=== PATIENT | female | born 1955 | race Caucasian/White ===

== ENCOUNTER → 2017-12-07 15:02 | Outpatient (REF) | payer BC, SELFPAY | LOC: LBN 15:02 | PROVIDERS: PCP Nurse Practitioner Family; Visit Provider Nurse Practitioner Family | DX: R35.0 Frequency of micturition (principal); N89.8 Other specified noninflammatory disorders of vagina | CPT/HCPCS: 87077; 87086; 87186; 87480; 87510; 87660 ==

== ENCOUNTER 2018-01-25 02:47 | Outpatient (CLI) | payer BC, SELFPAY ==
[2018-01-25 12:54] LABS: FREE T4 0.85 ng/dL (0.76-1.46)
[2018-01-26 13:55] LABS: Thyroglobulin Antibody 18 U/mL (<61); Thyroperoxidase Antibody 33 U/mL (<61)
== END 2018-01-25 03:07 ==
PROVIDERS: PCP Nurse Practitioner Family; Visit Provider Nurse Practitioner Family
DX: R79.89 Other specified abnormal findings of blood chemistry (principal); I10 Essential (primary) hypertension
CPT/HCPCS: 36415; 86376; 84439; 84443

== ENCOUNTER 2018-09-04 07:00 | Day surgery (SDC) | payer BC, SELFPAY ==
[2018-09-04] MEDS: Lidocaine 2% Pres-Free 5 ML VIAL (09:50)
--- NOTE | 2018-09-04 10:07 | W.PM.DSUDISC ---
Discharge Plan Disposition Patient Disposition: HOME Condition: Good Discharge Details Reason For Visit: L trigger thumb release Attending Provider: Kenny Banks Primary Care Provider: Samantha Escalante Home Meds and New Rx's Prescriptions: New ibuprofen 600 mg tablet 600 mg PO TID Qty: 30 RF: 0 Continued multivitamin [Daily Multi-Vitamin] 1 EACH tablet 1 ea PO DAILY RF: 0 omega-3 fatty acids-fish oil [Fish Oil] 1 EACH capsule 2 ea PO DAILY RF: 0 esomeprazole magnesium [Nexium] 40 mg capsule,delayed release(DR/EC) 40 mg PO DAILY@0730 Qty: 30 RF: 6 Discharge Instructions Additional Instructions: Bend and straighten L thumb 10 times/hour when awake to decrease swelling and pain. Keep dressings dry and in place for 48 hours. After 48 hours, remove dressings. May then shower or bathe and get incision wet. Leave incision uncovered when it is dry and sealed. Take ibuprofen as prescribed for pain. May take tylenol, in addition, for pain if needed. Follow up with in 10-14 days. Referrals: Kenny Banks MD [ [facility] STAFF PHYSICIAN] - (f/u in 10-14 days.) Activity:: Activity as Tolerated Remove Dressings/Wound Care:: 48 hours Shower/Bathe:: 48 hours Diet:: As Tolerated Discharge Orders Discharge Orders: Discharge Order (Routine); Ordered 09/04/18 Ordered By: Kenny Banks DS: Diagnosis Discharge Diagnosis (1) Trigger thumb of left hand: Status: Acute
--- NOTE | 2018-09-04 13:51 | ROE_ITS ---
DATE OF PROCEDURE: September 04, 2018 PREOPERATIVE DIAGNOSIS: Trigger left thumb. POSTOPERATIVE DIAGNOSIS: Same. PROCEDURE: Tendon sheath incision for trigger left thumb. ANESTHESIA: Local infiltration - 2% Xylocaine solution and 0.5% Marcaine with an epinephrine solutio n. SURGEON: Kenny Banks M.D. INDICATIONS: This is a 62-year-old white female with painful locking of her left thumb for several m onths duration. It's gotten so painful that she won't flex her thumb at all. 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 Tendon sheath incision to release her t loft rigger thumb was recommended to alleviate her pain and restore good function to her left thumb. The risks and complications of the procedure were explained to the patient in detail preoperatively. PROCEDURE: The patient was taken to the Operating Room on 09/04/18. She was placed supine on the ope rating table. The left hand is prepped and draped free in the usual sterile fashion. I infiltrate o franca the proximal flexion crease of the left thumb with 2% Xylocaine solution. After waiting a couple of minutes, I then make an incision in line with the proximal flexion crease of the thumb, centered over the flexor sheath. The incision was about 3 cm. The incision was carried down to the subcu. B edyta-tipped Littler scissors were then used to mobilize the digital nerve away from the flexor sheath of the thumb. Retractors were inserted and under direct vision I incised the proximal ivory of the left thumb. Once I thought I had released it completely, I asked the patient to actively flex and e xtend her left thumb. She was now able to flex and extend her left thumb fully without any locking o r catching. The wound was irrigated with saline solution. The wound margins were infiltrated with 0.5% Marcaine with an epinephrine solution. The skin edges were approximated with three interrupted #4-0 Nylon caban tures. The wound was dressed with Xeroform gauze, sterile gauze 4x4's, and wrapped with a 2-inch Cli ng bandage for a light pressure dressing. The patient tolerated the procedure well and was discharge d to the Day Surgery Unit in good condition. The patient was discharged home from the Day Surgery Unit when fully recovered from her procedure. S he was given instructions to flex and extend her left thumb ten times an hour while awake to prevent swelling and pain. She is to keep her dressings dry and intact for 48 hours. After 48 hours she can remove her dressings, shower or bathe and get her incision wet. She can leave her incision uncovere d when it is dry and sealed. She will take Tylenol or ibuprofen for pain. She will follow-up in my office in 10-14 days. She may use her left thumb as much as discomfort allows.
== END 2018-09-04 10:30 | disposition home or self-care (01) ==
PROVIDERS: PCP Nurse Practitioner Family; Visit Provider Orthopaedic Surgery
PROC: (CPT 26055; principal; 2018-09-04 08:30)
DX: M65.312 Trigger thumb, left thumb (principal)
CPT/HCPCS: 26055

== ENCOUNTER 2019-03-06 07:08 | Outpatient (CLI) | payer BC, SELFPAY ==
[2019-03-06 07:58] LABS: Hemoglobin A1C 6.1 % (4.5-6.2)
[2019-03-06 08:24] LABS: HCT 30.8 % (36.0-46.0); HGB 8.9 g/dL (12.0-15.5); Mean Corp. HGB Concentration 28.9 g/dL (32.0-36.0); Mean Corpuscular Hemoglobin 20.2 pg (27.0-33.0); Mean Platelet Volume 9.5 fL (8.0-11.0); Platelet Count 322 x1000/uL (130-400); RBC Distribution Width 17.3 % (11.7-14.6); White Blood Cell Count 4.68 k/cumm (4.4-10.8)
[2019-03-06 09:02] LABS: Anion Gap 11.2 mmol/L (3-11); BUN 17 mg/dL (7-18); CO2 25.8 mmol/L (21.0-32.0); Calcium 8.8 mg/dL (8.5-10.1); Chloride 105 mmol/L (98-107); Glucose 89 mg/dL (70-100); Potassium 4.6 mmol/L (3.5-5.1); Sodium 142 mmol/L (136-145)
[2019-03-06 09:22] LABS: Cholesterol 172 mg/dL (50-200); HDL Cholesterol 36 mg/dL (40-60); Triglyceride 496 mg/dL (30-150)
[2019-03-06 09:54] LABS: LDL CHOLESTEROL 73 mg/dL (<100)
[2019-03-07 15:31] LABS: Reticulocyte 1.8 % (0.5-2.4)
[2019-03-07 16:01] LABS: Iron 26 ug/dL (50-175); Total Iron Binding Capacity 546 ug/dL (250-450)
[2019-03-07 16:14] LABS: Ferritin 4 ng/mL (8-388)
== END 2019-03-06 07:28 ==
PROVIDERS: PCP Nurse Practitioner Family; Visit Provider Nurse Practitioner Family
DX: E78.1 Pure hyperglyceridemia (principal); D50.9 Iron deficiency anemia, unspecified
CPT/HCPCS: 36415; 80048; 80061; 83721; 85027; 82728; 83036; 83540; 83550; 85045

== ENCOUNTER 2019-03-07 01:04 | Outpatient (CLI) | payer BC, SELFPAY ==
--- NOTE | 2019-03-07 13:15 | DI.CTLCSR_ITS ---
EXAM: CT CHEST LUNG CANCER SCREEN CLINICAL HISTORY: screening Z87.891 HX NICOTINE DEPENDENCE TECHNIQUE: CT was performed according to usual protocol. COMPARISON: CHEST - LUNG CANCER SCREENING from 09/27/2017 FINDINGS: Atherosclerosis is present. Heart size is within normal limits. No pericardial effusion is seen. Co ronary artery calcifications are present. No significant thoracic adenopathy is appreciated. No ple ural effusion or pneumothorax is identified. No noncalcified pulmonary nodules are present. There a re several calcified nodules present consistent with prior granulomatous disease. No focal consolida ting infiltrates are present. The tracheobronchial tree is unremarkable. Degenerative changes are p resent in the spine. IMPRESSION: No noncalcified pulmonary nodules. Lung RADS Cat 1 - Negative: No nodules and definitely benign nodules
== END 2019-03-07 01:24 ==
PROVIDERS: PCP Nurse Practitioner Family; Visit Provider Nurse Practitioner Family
DX: Z12.2 Encounter for screening for malignant neoplasm of respiratory organs (principal); J98.4 Other disorders of lung; Z87.891 Personal history of nicotine dependence
CPT/HCPCS: G0297

== ENCOUNTER 2019-03-08 01:30 | Outpatient (CLI) | payer BC, SELFPAY ==
--- NOTE | 2019-03-08 12:47 | DI.MAMMO_ITS ---
EXAM: MG MAMMO SCREENING CLINICAL HISTORY: screening Z12.39 TECHNIQUE: Mammograms were interpreted according to the usual protocol including computer analysis w [employer] CAD system, tomosynthesis and C-view imaging. COMPARISON: 2014 and 2017 FINDINGS: The breasts are composed of scattered areas of fibroglandular density, breast density category B. No suspicious masses or microcalcifications are seen. There has been no significant change when compared with the prior examinations. IMPRESSION: Category 1, negative mammogram. Yearly screening mammography is recommended. BI-RADS Cat 1 - Negative Breast Density - Category B - Scattered areas of fibroglandular density
== END 2019-03-08 01:50 ==
PROVIDERS: PCP Nurse Practitioner Family; Visit Provider Nurse Practitioner Family
DX: Z12.31 Encounter for screening mammogram for malignant neoplasm of breast (principal)
CPT/HCPCS: 77063; 77067

== ENCOUNTER 2019-03-27 11:41 | Day surgery (SDC) | payer BC, SELFPAY ==
--- NOTE | 2019-03-27 06:37 | ENDO_ITS ---
Date of service: 03/27/19 Time of Service: 12:28 Endoscopy Report DATE OF PROCEDURE: 03/27/19 PRE-OP DIAGNOSIS: Hx of Alford's and Hx of colon polyps POST-OP DIAGNOSIS: other (Duodenitis, esophagitis and Alford's, colorectal polyps) PROCEDURE: 1. EGD with biopsies 2. Colonoscopy with polypectomy by cold forceps SURGEON: Emma Ibrahim ANESTHESIA: other (General/ ASA 2/Remberto Garcia, LIBRARY SCIENCE INSTRUCTOR ) ESTIMATED BLOOD LOSS: 5 PATHOLOGY: other (Duodenal Bx, GAstric bx, GE junction bx, Sigmoid polyps x7, rectal polyps x3) COMPLICATIONS: None DISPOSITION: same day INDICATIONS: Mrs. Pedersen is a pleasant 63 year old female seen in the office for a follow-up upper endoscopy for history of Alford's as well as a follow-up colonoscopy for a history of colon polyps. Risks, benefits and complications have been reviewed. Complications include but are not limited to bleeding, pain, perforation, missed small lesion/polyp, sore throat, aspiration and adverse reaction to the medications. Questions were entertained and answered to their satisfaction and they wished to proceed. No guarantees were given or implied. PREP: Miralax/Dulcolax PROCEDURE START TIME: 12:28 PROCEDURE END TIME: 13:10 COLONOSCOPY RETRACTION TIME: 20 minutes FINDINGS: Mild inflammation of the duodenum, normal stomach, Alford's in the distal esophagus. 10 polyps in the colon PROCEDURE DESCRIPTION: After informed consent was obtained the patient was take to the procedure room and placed in a supine position. Monitors were applied and a time out was done. The patients name, date of , procedure type, allergies to medications and metal in their body was reviewed. A bite block was placed and the patient was sedated. Once sedated and comfortable the gastroscope was advanced through the oropharynx which was grossly normal into the esophagus. The proximal and mid- esophagus were Normal. In the distal esophagus there was mild inflammation with changes consistent with gastric type mucosa noted. The scope was advanced into the stomach and through the pylorus into the 3rd portion of the duodenum. The duodenum was noted to have some mild inflammation. Biopsies were done. The scope was retracted back into the stomach and biopsies were done to rule out H. pylori. There were no ulcers. The scope was retro-flexed. The cardia and fundus were noted to be normal. There was no hiatal hernia noted. The scope was retracted back into the esophagus and biopsies were done of the GE junction for surveillance of her known Alford's. The Z line was irregular. The GE junction was at 35 cm. While the patient was still sedated they were placed in a left decubitous position. A rectal exam was done. External exam was normal. Internal exam revealed a slightly decreased sphincter tone and no palpable masses. The scope was then introduced and retro-flexed. No internal hemorrhoids were identified. The scope was then advanced to the cecum without difficulty. The TI and appendiceal orifice were identified. The prep was adequate. The scope was then slowly retracted over 20 minutes back into the rectum. 7 polyps were removed with cold forceps in the sigmoid colon and 3 polyps were removed with cold forceps in the rectum. All of the polyps were sessile. None were more then 10 mm in size. The scope was removed and the patient was woken up and taken back to Same day surgery in stable condition. The patient tolerated the procedure well and there were no immediate complications. Follow up: follow up in the office in 2 weeks. Start carafate.
--- NOTE | 2019-03-27 06:39 | W.PM.DSUDISC ---
Discharge Plan Disposition Patient Disposition: HOME Condition: Good Discharge Details Reason For Visit: Hx of Alford's and Hx of tubullovillous adenoma Attending Provider: Emma Ibrahim Primary Care Provider: Samantha Escalante Home Meds and New Rx's Prescriptions: New sucralfate 1 gram tablet 1 gm PO QID Qty: 56 RF: 0 Continued esomeprazole magnesium [Nexium] 40 mg capsule,delayed release(DR/EC) 40 mg PO DAILY@0730 Qty: 90 RF: 3 albuterol sulfate 90 mcg/actuation HFA aerosol inhaler 2 inh IH Q6H PRN (Reason: shortness of breath or wheezing) Qty: 18 RF: 3 multivitamin [Daily Multi-Vitamin] 1 EACH tablet 1 ea PO DAILY RF: 0 Fish Oil 1 EACH capsule 2 ea PO DAILY RF: 0 ferrous sulfate 325 mg (65 mg iron) tablet 325 mg PO BID Qty: 180 RF: 4 ascorbic acid (vitamin C) 500 mg tablet 500 mg PO BID Qty: 180 RF: 4 Spiriva with HandiHaler 18 mcg capsule, w/inhalation device 1 cap IH DAILY PRNRF: 0 Discontinued bisacodyl [Dulcolax (bisacodyl)] 5 mg tablet,delayed release (DR/EC) 5 mg PO ONCE Qty: 4 RF: 0 polyethylene glycol 3350 17 gram powder in packet 255 g PO DAILY Qty: 15 RF: 0 Discharge Instructions Instructions: Colonoscopy (DC), Diet for Stomach Ulcers and Gastritis (GEN), Upper Endoscopy (DC), Colorectal Polyps (DC) Additional Instructions: Findings: Mild inflammation of the small bowel and esophagus 10 polyps Follow up: 2 weeks in the office Please call if you develop: fevers >101.5 Nausea or Vomiting Abdominal pain that is not transient DAY SURGERY UNIT POST ENDOSCOPY INSTRUCTIONS 1. Because there will be medication in your system for the next 24 hours, you may feel a little sleepy. Your coordination will be affected. Therefore: a. Do not drive or operate dangerous equipment for 24 hours. b. Do not drink alcohol beverages for 24 hours (not even beer). c. Plan to go home and rest for the day. 2. Generally there are no restrictions on your activity after a day or so has gone by, but you may feel a bit fatigued for a few days. 3 After you arrive home you may have a light meal and return to a normal diet as you can tolerate it without feeling sick to your stomach. 4. After surgery, you may feel pain or discomfort. This should be only transient, but if it persists please contact your doctor. 5. If there are any questions regarding the findings of your procedure, please feel free to contact your doctor. 6. If you are unable to contact your doctor with a problem, contact the hospital at [phone]. 7. Continue all your regular medications unless directed otherwise. I understand the above instructions and have no questions. Signature of Patient or Responsible Adult Escort Date/Time Name of Responsible Adult Escort Signature of Nurse Date/Time Stand Alone Forms: DSU Post EGD Instructions, Hernesto Sanders (DSU) Referrals: Emma Ibrahim MD [ [facility] STAFF PHYSICIAN] - 04/10/19 1:00 pm Activity:: Activity as Tolerated Diet:: low acid Discharge Orders Discharge Orders: Discharge Order (Routine); Ordered 03/27/19 Ordered By: Emma Ibrahim DS: Diagnosis Discharge Diagnosis (1) S/P colonoscopy: Status: Acute (2) History of esophagogastroduodenoscopy (EGD): Status: Chronic (3) Colorectal polyps: Status: Acute
[2019-03-27 11:58] VITALS: BP 156/84; PULSE 80; RESP 17; TEMP 35.8; O2SAT 100
[2019-03-27] MEDS: Lactated Ringers 1,000 ML 80 ML IV (12:20)
--- NOTE | 2019-03-27 12:30 | STOM_PTH ---
PATIENT: Lynda Pedersen LOC: [facility] U#:[id number] AGE/SX: 63/F ROOM: RE03/27/[address]: Emma Ibrahim MD : [id number] BED: DIS: 03/27/2019 SPEC #: [id number] RECD: 03/27/19 17:38 STATUS: ANGELA RE #: [id number] MULUGETA: 03/27/19 12:[address]: Emma Ibrahim DEPT: Surgical Specimen RECD BY: Caprice Nguyen ENTERED: 03/27/19 17:40 SP TYPE: STOMACH OTHR DR: Samantha Escalante, MAINTENANCE LEADER Tissues: 1 - BIOPSY BOWEL 2 - STOMACH BIOPSY 3 - ESOPHAGUS BIOPSY 4 - BIOPSY BOWEL 5 - BIOPSY BOWEL Procedures: GROSS AND MICRO LEVEL 4 IMMUNOPEROXIDASE STAIN Comments: [id number]
[2019-03-27 13:50] VITALS: BP 145/76; PULSE 70; RESP 16; TEMP 35.6; O2SAT 97
== END 2019-03-27 14:36 | disposition home or self-care (01) ==
LOC: SUR 11:41
PROVIDERS: PCP Nurse Practitioner Family; Visit Provider Surgery
PROC: (CPT 45380; principal; 2019-03-27 09:15)
DX: K22.70 Barrett's esophagus without dysplasia (principal); K63.5 Polyp of colon; Z12.11 Encounter for screening for malignant neoplasm of colon; K31.89 Other diseases of stomach and duodenum; K29.50 Unspecified chronic gastritis without bleeding; Z86.010 Personal history of colon polyps; K29.80 Duodenitis without bleeding
CPT/HCPCS: 45380; 43239; 88305; 88361; J2250; J3010

== ENCOUNTER 2019-04-13 09:32 | Outpatient (CLI) | payer BC, SELFPAY ==
[2019-04-13 11:47] LABS: HCT 38.9 % (36.0-46.0); Mean Corp. HGB Concentration 30.8 g/dL (32.0-36.0); Mean Corpuscular Hemoglobin 23.8 pg (27.0-33.0); Mean Platelet Volume 9.9 fL (8.0-11.0); Platelet Count 263 x1000/uL (130-400); RBC 5.05 m/cumm (4.00-5.20); RBC Distribution Width 26.2 % (11.7-14.6); White Blood Cell Count 4.83 k/cumm (4.4-10.8)
[2019-04-13 11:57] LABS: Iron 98 ug/dL (50-170); Total Iron Binding Capacity 440 ug/dL (250-450)
[2019-04-13 12:12] LABS: Ferritin 27 ng/mL (8-252)
== END 2019-04-13 09:52 ==
PROVIDERS: PCP Nurse Practitioner Family; Visit Provider Nurse Practitioner Family
DX: D50.9 Iron deficiency anemia, unspecified (principal)
CPT/HCPCS: 36415; 85027; 82728; 83540; 83550

== ENCOUNTER 2019-04-18 01:57 | Outpatient (CLI) | payer BC, SELFPAY ==
--- NOTE | 2019-04-18 10:05 | PFT_ITS ---
PULMONARY FUNCTION TEST REPORT DATE OF SERVICE: April 18, 2019 REQUESTING PROVIDER: Samantha Escalante M.D. Spirometry shows no evidence of obstructive airways disease, no bronchodilator response. Lung volumes show no evidence of restriction. Diffusion capacity normal. Airways resistance normal. IMPRESSION: Normal pulmonary function study. Clinical correlation recommended. TRINITY/keith D/
[2019-04-18] MEDS: Inhaler, Assist Device 1 EACH MC (10:57)
[2019-04-18] MEDS: Albuterol HFA 18 GM 200 PUFF INH IH (10:58)
== END 2019-04-18 02:17 ==
PROVIDERS: PCP Nurse Practitioner Family; Visit Provider Nurse Practitioner Family
DX: R06.09 Other forms of dyspnea (principal); Z87.891 Personal history of nicotine dependence
CPT/HCPCS: 94060; 94150; 94726; 94729

== ENCOUNTER 2019-05-21 07:55 | Day surgery (SDC) | payer BC, SELFPAY ==
[2019-05-21 08:07] VITALS: BP 147/90; PULSE 66; RESP 18; TEMP 36.4; O2SAT 99
[2019-05-21] MEDS: Lidocaine 2% Multi-Dose 50 ML VIAL (10:10)
--- NOTE | 2019-05-21 10:26 | PDOC.DSDIS_ITS ---
Discharge Plan Disposition Patient Disposition: HOME Condition: Good Discharge Details Attending Provider: Kenny Banks Primary Care Provider: Samantha Escalante Home Meds and New Rx's Prescriptions: Continued albuterol sulfate 90 mcg/actuation HFA aerosol inhaler 2 inh IH Q6H PRN (Reason: shortness of breath or wheezing) Qty: 18 RF: 3 esomeprazole magnesium [Nexium] 40 mg capsule,delayed release(DR/EC) 40 mg PO BID Qty: 60 RF: 1 multivitamin [Daily Multi-Vitamin] 1 EACH tablet 1 ea PO DAILY RF: 0 Fish Oil 1 EACH capsule 2 ea PO DAILY RF: 0 ferrous sulfate 325 mg (65 mg iron) tablet 325 mg PO BID Qty: 180 RF: 4 ascorbic acid (vitamin C) 500 mg tablet 500 mg PO BID Qty: 180 RF: 4 Spiriva with HandiHaler 18 mcg capsule, w/inhalation device 1 cap IH DAILY PRNRF: 0 Discharge Instructions Additional Instructions: Try to bend and straighten R thumb 10 times/hour, when awake, to decrease pain and swelling. Keep dressings dry and intact for 48 hours. After 48 hours, remove dressings. May then shower or bathe and get incision wet. Leave incision uncovered when it is dry and sealed. Use R thumb and hand as much as your discomfort allows. Follow up with in 2 weeks for suture removal. Take tylenol or ibuprofen for pain. Referrals: Kenny Banks MD [ [facility] STAFF PHYSICIAN] - (f/u in 2 weeks.) Activity:: Activity as Tolerated Remove Dressings/Wound Care:: 48 hours Shower/Bathe:: 48 hours Diet:: As Tolerated Discharge Orders Discharge Orders: Discharge Order (Routine); Ordered 05/21/19 Ordered By: Kenny Banks DS: Diagnosis Discharge Diagnosis (1) Trigger thumb, right thumb: Status: Acute
--- NOTE | 2019-05-21 15:37 | ROE_ITS ---
DATE OF PROCEDURE: May 21, 2019 PREOPERATIVE DIAGNOSIS: Trigger right thumb. POSTOPERATIVE DIAGNOSIS: Same. PROCEDURE: Tendon sheath incision for trigger right thumb release. ANESTHESIA: Local infiltration 1% Xylocaine solution and 0.25% Marcaine with an epinephrine solution . SURGEON: Kenny Banks M.D. INDICATIONS: This is a 63-year-old white female with a painful trigger right thumb. The pain has re ached the point where she could not use her right hand because of the pain. She is unable to bend he r thumb IP joint because of the pain. Trigger thumb release was recommended to alleviate her pain an d restore good function to her right thumb. The risks and complications of the procedure were explai lisseth to the patient in detail preoperatively. PROCEDURE: The patient was taken to the operating room on 05/21/2019. She was placed supine on the o perating table. The right hand and distal forearm were prepped and draped free in the usual sterile fashion. I infiltrated over the proximal flexion crease of the right thumb with 1% Xylocaine solutio n. I made an incision in line with the proximal flexion crease of the thumb, centered over the flexor te ndon. The incision was approximately 2 cm in length. The incision was carried down just to the subc u. Blunt-tipped Littler scissors were then used to mobilize the soft tissue, especially the digital nerve, away from the flexor sheath of the right thumb. I was able to visualize the flexion sheath qu ite clearly. A longitudinal incision was made in the flexor sheath the entire length of the proximal ivory of the flexor sheath. At this point the patient was asked to actively flex and extend her ri ght thumb. She was now able to flex and extend her right thumb fully without any pain, locking or tr iggering. The wound was irrigated with saline solution. The wound margins were infiltrated with 0.5 0% Marcaine with an epinephrine solution. The skin edges were approximated with three interrupted #4 -0 nylon sutures. The wound was dressed with Xeroform gauze, sterile gauze 4x4's and wrapped with a 2-inch Cling bandage for a light pressure dressing. The patient tolerated the procedure well and was discharged to the Day Surgery Unit in good condition. The patient was discharged home from the Day Surgery Unit when fully recovered from her procedure. S he was given instructions to flex and extend her right thumb ten times an hour while awake to prevent swelling and pain. She will keep the dressings dry and intact for 48 hours. After 48 hours she may remove her dressings, shower or bathe and get her incision wet. She can leave the incision uncovere d when it is dry and sealed. She can use her right hand and thumb as much as discomfort allows. She will take Tylenol or ibuprofen for pain. She will follow-up in my office in two weeks for suture re moval.
== END 2019-05-21 10:47 | disposition home or self-care (01) ==
PROVIDERS: PCP Nurse Practitioner Family; Visit Provider Orthopaedic Surgery
PROC: (CPT 26055; principal; 2019-05-21 09:00)
DX: M65.311 Trigger thumb, right thumb (principal)
CPT/HCPCS: 26055

== ENCOUNTER 2019-06-14 10:20 | Outpatient (CLI) | payer BC, SELFPAY ==
[2019-06-14 13:13] LABS: HCT 38.7 % (36.0-46.0); HGB 12.6 g/dL (12.0-15.5); Mean Corp. HGB Concentration 32.6 g/dL (32.0-36.0); Mean Corpuscular Hemoglobin 27.2 pg (27.0-33.0); Mean Corpuscular Volume 83.4 fL (80-95); Mean Platelet Volume 9.8 fL (8.0-11.0); Platelet Count 271 x1000/uL (130-400); RBC 4.64 m/cumm (4.00-5.20); RBC Distribution Width 18.8 % (11.7-14.6); White Blood Cell Count 5.02 k/cumm (4.4-10.8)
[2019-06-14 14:05] LABS: Iron 114 ug/dL (50-170); Total Iron Binding Capacity 406 ug/dL (250-450)
[2019-06-14 14:58] LABS: Ferritin 29 ng/mL (8-252)
== END 2019-06-14 10:40 ==
PROVIDERS: PCP Nurse Practitioner Family; Visit Provider Nurse Practitioner Family
DX: D50.9 Iron deficiency anemia, unspecified (principal)
CPT/HCPCS: 85027; 82728; 83540; 83550

== ENCOUNTER 2019-09-13 08:38 | Outpatient (CLI) | payer BC, SELFPAY ==
[2019-09-13 13:29] LABS: Abs Immature Grans 0.02 k/cumm (0.0-0.09); Absolute Basophil Count 0.03 k/cumm (0.0-0.2); Absolute Eosinophil Count 0.08 k/cumm (0.0-0.7); Absolute Lymphocyte Count 2.17 k/cumm (1.2-3.4); Absolute Monocyte Count 0.59 k/cumm (0.11-0.7); Absolute Neutrophil Count 4.65 k/cumm (1.2-6.7); Basophils % 0.4; Eosinophils % 1.1; HGB 11.8 g/dL (12.0-15.5); Immature Grans % 0.3 %; Lymphocytes % 28.8; Mean Corp. HGB Concentration 33.7 g/dL (32.0-36.0); Mean Corpuscular Hemoglobin 27.4 pg (27.0-33.0); Mean Corpuscular Volume 81.4 fL (80-95); Mean Platelet Volume 9.8 fL (8.0-11.0); Monocytes % 7.8; Neutrophils % 61.6; Platelet Count 315 x1000/uL (130-400); White Blood Cell Count 7.54 k/cumm (4.4-10.8)
[2019-09-13 14:23] LABS: Albumin 3.8 g/dL (3.4-5.0); Alkaline Phosphatase 99 U/L (46-116); Anion Gap 9.2 mmol/L (3-11); BUN 17 mg/dL (7-18); Bilirubin, Total 0.6 mg/dL (0.2-1.0); CO2 27.8 mmol/L (21.0-32.0); Calcium 7.7 mg/dL (8.5-10.1); Chloride 101 mmol/L (98-107); Ferritin 13 ng/mL (8-252); Glucose 143 mg/dL (74-106); Potassium 4.3 mmol/L (3.5-5.1); Sodium 138 mmol/L (136-145); Total Protein 7.1 g/dL (6.4-8.2)
[2019-09-13 16:06] LABS: ALT 59 U/L (14-59); AST 34 U/L (15-37); CREATININE 0.98 mg/dL (0.55-1.02); Estimated GFR 57.51 (mL/min/1.73m2)
[2019-09-13 16:26] LABS: Total Iron Binding Capacity 450 ug/dL (250-450)
== END 2019-09-13 08:58 ==
PROVIDERS: PCP Nurse Practitioner Family; Visit Provider Nurse Practitioner Family
DX: D50.9 Iron deficiency anemia, unspecified (principal)
CPT/HCPCS: 36415; 80053; 82728; 83550; 85025

== ENCOUNTER 2019-09-14 09:28 | Outpatient (CLI) | payer BC, SELFPAY ==
[2019-09-17 15:51] LABS: COVID-19 RT-PCR UVMMC Result Negative (Negative)
== END 2019-09-14 09:48 ==
PROVIDERS: PCP Nurse Practitioner Family; Visit Provider Nurse Practitioner Family
DX: Z11.59 Encounter for screening for other viral diseases (principal)
CPT/HCPCS: U0003

== ENCOUNTER 2019-09-14 11:17 | Outpatient (CLI) | payer BC, SELFPAY ==
--- NOTE | 2019-09-14 13:55 | DI.RAD_ITS ---
EXAM: XR CHEST 2V PA LATERAL CLINICAL HISTORY: SOB x 3-4wks, R06.02 TECHNIQUE: 2D digital imaging was performed. COMPARISON: CR CHEST 2 VIEWS PA,LAT from 05/24/[address] CHEST LUNG CANCER SCREEN from 03/07/2019 FINDINGS: MEDIASTINUM: Normal. HEART: Normal. The lungs are suboptimally inflated on the PA view. There is mild bibasilar atelect asis. No infiltrate or effusion is seen. There are mild degenerative changes in the thoracic spine. IMPRESSION: Somewhat limited exam due to poor pulmonary inflation. Mild basilar densities, likely atelectasis.. DATA REPOSITORY: RADIATION DOSE DELIVERED:
== END 2019-09-14 11:37 ==
PROVIDERS: PCP Nurse Practitioner Family; Visit Provider Nurse Practitioner Family
DX: R06.02 Shortness of breath (principal); J98.11 Atelectasis
CPT/HCPCS: 71046

== ENCOUNTER 2019-12-24 04:41 | Emergency (ER) | payer BC, SELFPAY ==
[2019-12-24] VITALS (14 sets, daily range): BP systolic 143–185; BP diastolic 72–95; PULSE 79–93; RESP 12–20; TEMP 36.3–36.4; O2SAT 92–98
--- NOTE | 2019-12-24 04:45 | RT.EKG_ITS ---
APPROVED REPORT Exam: Resting ECG Patient Location: E HR:78 bpm ECG Measurements Heart Rate 78 AXIS NH 133 P 26 QRSd 75 QRS 29 QT 438 T 41 QTc 500 Conclusion EKG 5: 09 Rate 78, intervals normal, no evidence of STEMI, no significant ST elevation or depressions. Small Q waves in lead II and III. No other significant abnormality.
--- NOTE | 2019-12-24 04:45 | DI.CT_ITS ---
EXAM: CT CHEST/ABD W CLINICAL HISTORY: vomiting, wretching, chest and epig pain, r/o rupt. TECHNIQUE: Imaging protocol: Axial computed tomography images were obtained and coronal and sagittal reformatted images were created and reviewed. CONTRAST MATERIAL: 100 cc Omnipaque 350 IV COMPARISON: CT CT CHEST LUNG CANCER SCREEN from 03/07/2019 FINDINGS: Pulmonary parenchyma: No consolidation or measurable mass. Emphysema: Mild. Tracheobronchial tree: Patent. Interstitial changes: None. Pleura: No effusion or pneumothorax. Heart: The heart is not dilated. The coronary arteries show calcifications. Aorta: Thoracic aorta non-dilated. Moderateatherosclerotic changes. Lymph nodes: Within normal limits. Bones: Degenerative changes are seen. No evidence of compression fracture. Upper abdomen: Fatty liver. Mild thickening of the wall of the distal esophagus. No evidence ruptu re. IMPRESSION: Mild wall thickening of the distal esophagus could indicate esophagitis. No evidence of rupture. RADIATION DOSE DELIVERED: 1,195.06mGy.cm Total DLP DATA REPOSITORY: All CT scans at this facility are submitted to the National Radiology Data Registry (NRDR) Dose Index Registry (DIR) with the [employer] (A[employer]). RADIATION OPTIMIZATION: All CT scans at this facility use at least one of these dose optimization te chniques: automated exposure control; mA and/or kV adjustment per patient size (includes targeted exa ms where dose is matched to clinical indication); or iterative reconstruction.
--- NOTE | 2019-12-24 04:57 | ED.GENADUL_ITS ---
Discharge Plan Disposition Patient Disposition: HOME Condition: Good Discharge Details Chief Complaint: Nausea/Vomit/Diar Clinical Impression: Gastritis, Vomiting, Esophagitis Primary Care Provider: Samantha Escalante ED Provider: Delbert Jeffries Home Meds and New Rx's Prescriptions: New sucralfate [Carafate] 1 gram tablet 1 gm PO BID Qty: 20 RF: 0 famotidine 40 mg tablet 40 mg PO QHS Qty: 30 RF: 0 ondansetron HCl [Zofran] 4 mg tablet 4 mg PO Q8H Qty: 12 RF: 0 Continued multivitamin [Daily Multi-Vitamin] 1 EACH tablet 1 ea PO DAILY RF: 0 Fish Oil 1 EACH capsule 2 ea PO DAILY RF: 0 ferrous sulfate 325 mg (65 mg iron) tablet 325 mg PO BID Qty: 180 RF: 4 ascorbic acid (vitamin C) 500 mg tablet 500 mg PO BID Qty: 180 RF: 4 albuterol sulfate 90 mcg/actuation HFA aerosol inhaler 2 inh IH Q6H PRN (Reason: shortness of breath or wheezing) Qty: 18 RF: 3 omeprazole 40 mg capsule,delayed release(DR/EC) 40 mg PO DAILY Qty: 90 RF: 4 Discharge Instructions Instructions: Gastritis (ED), Esophagitis (ED) Additional Instructions: At this time your symptoms are likely secondary to eating the tomato-based products. This is certainly aggravated your gastritis and esophagitis. Please avoid any spicy foods, tomato-based foods, mint-based foods. Please avoid any citrus-based foods. Please take the Carafate and famotidine as prescribed to help relieve the symptoms. Please follow-up closely with your surgeon Dr. Ibrahim. Take the Zofran as needed for nausea. If you notice any worsening of your symptoms, or any new symptoms such as vomiting, diarrhea, fever, chills, shortness of breath, chest pain, numbness, weakness, or fainting , please return immediately to the emergency department for reevaluation. Please follow up with your primary care provider as soon as possible for reassessment and reevaluation. As always, it was a pleasure participating in your medical care today. Referrals: Samantha Escalante, DELIA [Primary Care Provider] - Emma Ibrahim MD [ [facility] STAFF PHYSICIAN] - Medical Decision Making This is a pleasant 64-year-old female with a past medical history of Alford's esophagus, high cholesterol, gastric ulcers, who presents today for evaluation of vomiting, chest pain and abdominal pain. Patient states that earlier today she had some lasagna, since then she has been consistently vomiting. She has had multiple episodes of nonbloody nonbilious emesis. No coffee grounds. She is also had associated diarrhea. She states that other people had lasagna with no symptoms. She denies any recent antibiotic use, foreign travel, or other sick contacts with similar symptoms. She states that the pain in her chest is been present with every episode of vomiting but has been notably worsening throughout the night. She denies any exertional chest pain or exertional discomfort. She denies any history of cardiac disease or family history of cardiac disease. She does feel very nervous and states that she feels like she is having a slight panic attack. She denies any other complaints at this time. She denies any history of current tobacco abuse, diabetes. She did take a single omeprazole prior to arrival. Physical exam dem onstrates notable epigastric abdominal tenderness, as well as right upper and left upper quadrant abdominal tenderness. Otherwise no guarding or rebound. No subcutaneous crepitus noted in the skin, breast or axillary tissues. Differential at this time is highest for gastritis, pancreatitis, less likely gallbladder pathology. However the patient's multiple episodes of vomiting and retching in conjunction with her chest pain and her history of Alford's esophagus I am concerned for esophageal pathology. With the patient's epigastric and chest pain we will get a CT scan, evaluate for unlikely cardiac etiology, treat the patient's symptomatology, monitor closely and reassess. We will give an H2 yamile, GI cocktail and Zofran as well. 7:08 AM on reassessment the patient's pain is completely resolved after GI cocktail, and H2 blocking agents in conjunction with cessation of her vomiting with Zofran. Vital signs have normalized, laboratory work-up shows no white count left shift or bandemia. Lactate is only 1.8 and does not need repeating at this stage. Troponin is normal, EKG is benign, and with symptoms present since 3 PM I see no current clinical indication for repeat troponin as symptoms have been greater then 12 hours. Lipase is also normal. Signs and symptoms at this time are clinically consistent with gastritis and esophagitis. CT scan is positive for mild esophagitis with minimal distal paraesophageal fluid which is nonspecific. No evidence of other acute process otherwise. No evidence of rupture per radiology. And in addition with the patient's symptoms resolved with treatment and her laboratory work-up otherwise benign her clinical scenario appears inconsistent with Boerhaave tear or Melissa-Dahl tear. And instead consistent with mild esophagitis and gastritis secondary to dietary noncompliance and eating a tomato-based product like lasagna. Patient will be discharged with Carafate and famotidine for home. Will recommend surgical follow-up outpatient. I have extensively reviewed the treatment plan and discharge instructions with the patient. I have addressed all patient concerns at this time. The patient was made aware of what symptoms to monitor for that would warrant a return to the emergency department. Discussed the plan with the patient, they demonstrate verbal understanding and agreement with our assessment and plan at this time. Also of note I did discuss the case briefly with Dr. Weber, we will attempt to get follow-up closely with the patient in outpatient surgery for reassessment. EKG 5: 09 Rate 78, intervals normal, no evidence of STEMI, no significant ST elevation or depressions. Small Q waves in lead II and III. No other significant abnormality. FINDINGS: Lungs: No consolidation. No masses. Minimal emphysema Pleural space: Unremarkable. No pneumothorax. No pleural effusion. Heart: Coronary calcifications. No cardiomegaly. No pericardial effusion. Mediastinal space: Mild esophageal thickening. Question minimal distal paraesophageal fluid Aorta: Unremarkable. No aortic aneurysm. Lymph nodes: Unremarkable. No enlarged lymph nodes. Bones/joints: Unremarkable. No acute fracture. Soft tissues: Unremarkable. IMPRESSION: Mild distal esophagitis. Minimal distal paraesophageal fluid which is nonspecific. No pleural effusion or pneumothorax. If clinically concerned for subtle esophageal rupture, dedicated esophagram may be helpful Coronary artery disease FINDINGS: Liver: Hepatomegaly and fatty infiltration. Question mild nodular contour to the liver No mass. Gallbladder and bile ducts: Normal. No calcified stones. No ductal dilation. Pancreas: Normal. No ductal dilation. Spleen: Normal. No splenomegaly. Adrenals: Normal. No mass. Kidneys and ureters: Normal. No hydronephrosis. Stomach and bowel: Visualized stomach and bowel are unremarkable. No obstruction. No mucosal thickening. Intraperitoneal space: Unremarkable. No free air. No significant fluid collection. Lymph nodes: Unremarkable. No enlarged lymph nodes. Vasculature: Atherosclerosis. No abdominal aortic aneurysm. Bones/joints: Unremarkable. No acute fracture. No dislocation. Soft tissues: Unremarkable. IMPRESSION: No acute findings. Fatty infiltration of the liver and hepatomegaly Question cirrhosis Thank you for allowing us to participate in the care of your patient. Dictated and Authenticated by: Last Sargent MD 12/24/2019 6:49 AM Eastern Time ([place] & [place]) HPI General Date/Time Provider Initiated Documentation: 12/24/19 04:46 . HPI Narrative: This is a pleasant 64-year-old female with a past medical history of Alford's esophagus, high cholesterol, gastric ulcers, who presents today for evaluation of vomiting, chest pain and abdominal pain. Patient states that earlier today she had some lasagna, since then she has been consistently vomiting. She has had multiple episodes of nonbloody nonbilious emesis. No coffee grounds. She is also had associated diarrhea. She states that other people had lasagna with no symptoms. She denies any recent antibiotic use, foreign travel, or other sick contacts with similar symptoms. She states that the pain in her chest is been present with every episode of vomiting but has been notably worsening throughout the night. She denies any exertional chest pain or exertional discomfort. She denies any history of cardiac disease or family history of cardiac disease. She does feel very nervous and states that she feels like she is having a slight panic attack. She denies any other complaints at this time. She denies any history of current tobacco abuse, diabetes. She did take a single omeprazole prior to arrival. Related Data Home Medications Medication Instructions Recorded Confirmed multivitamin [Daily Multi-Vitamin] 1 ea PO DAILY 09/21/17 09/14/19 Fish Oil 2 ea PO DAILY 11/16/17 09/14/19 ascorbic acid (vitamin C) 500 mg 500 mg PO BID #180 tab 03/09/19 09/14/19 tablet ferrous sulfate 325 mg (65 mg 325 mg PO BID #180 tab 03/09/19 09/14/19 iron) tablet albuterol sulfate 90 mcg/actuation 2 inh IH Q6H PRN #18 gm 07/25/19 09/14/19 aerosol inhaler omeprazole 40 mg capsule,delayed 40 mg PO DAILY #90 cap 10/15/19 release famotidine 40 mg PO QHS #30 tab 12/24/19 ondansetron HCl [Zofran] 4 mg PO Q8H #12 tab 12/24/19 sucralfate [Carafate] 1 gm PO BID #20 tab 12/24/19 Previous Rx's Medication Instructions Recorded ascorbic acid (vitamin C) 500 mg 500 mg PO BID #180 tab 03/09/19 tablet ferrous sulfate 325 mg (65 mg 325 mg PO BID #180 tab 03/09/19 iron) tablet albuterol sulfate 90 mcg/actuation 2 inh IH Q6H PRN #18 gm 07/25/19 aerosol inhaler omeprazole 40 mg capsule,delayed 40 mg PO DAILY #90 cap 10/15/19 release famotidine 40 mg PO QHS #30 tab 12/24/19 ondansetron HCl [Zofran] 4 mg PO Q8H #12 tab 12/24/19 sucralfate [Carafate] 1 gm PO BID #20 tab 12/24/19 Allergies Allergy/AdvReac Type Severity Reaction Status Date / Time codeine AdvReac Intermediate Skin Rash Verified 06/05/19 09:15 Penicillins AdvReac Intermediate Skin Rash Verified 06/05/19 09:15 Vvhfeyu-Kes-Bhf Reductase AdvReac Intermediate MUSCLE Verified 06/05/19 09:15 Inhibitor ACHES metronidazole AdvReac Unknown DIARRHEA Verified 06/05/19 09:15 General Stated Complaint: Nausea/Vomit/Diar GARRY: 3 Review of Systems All systems reviewed & are unremarkable except as noted in HPI and below PFSH Medical History Barretts esophagus (Chronic) EGD 2018, EGD 2019 due to increased symptoms Depressive disorder (Resolved) GERD with esophagitis (Acute) Hypertriglyceridemia (Chronic) Iron deficiency anemia (Chronic) Prediabetes (Chronic) Serrated adenoma of colon (Inactive) Tubular adenoma of colon (Inactive) Surgical History History of section (Chronic) History of esophagogastroduodenoscopy (EGD) (Chronic 03/27/19) Alford's esophagus. S/P appendectomy (Acute) S/P cataract surgery (Acute) S/P colonoscopy (Acute 03/27/19) 2016- Sessile serrated adenoma and Tubular adenoma 2019- Hyperplastic polyps x10. S/P laparoscopic hysterectomy (Acute) Right ovary remains S/P left oophorectomy (Acute) S/P tonsillectomy and adenoidectomy (Acute) S/P trigger finger release (Acute 09/04/18) Left thumb 09/04/18, right thumb 05/21/19 Family History Mother , at 66 Scleroderma Essential hypertension Father , at age 73. Korsakoff disease Alcohol abuse Sister , at 31 of uterine cancer Uterine cancer Sister Type 2 diabetes mellitus Sister No problems noted. Sister No problems noted. Brother , shortly after No problems noted. Brother , at 17 of MVA No problems noted. Brother , in his 60s of lung cancer Lung cancer Brother , at 32 Alcohol abuse Brother , in his 30s of meningitis No problems noted. Son No problems noted. Son Type 2 diabetes mellitus Alcohol abuse Daughter Thyroid cancer Maternal Grandfather No problems noted. Maternal Grandmother , in her 60s Type 2 diabetes mellitus Paternal Grandfather Korsakoff disease Alcohol abuse Paternal Grandmother , in her 60s Heart disease Social History Smoking/Tobacco Use Status: Former Tobacco Use Quit Date: 12/07/17 Pack-years: 49 Tobacco: How many years used: 49 Alcohol Intake: never Drug use: Never Substance use type: does not use Current gender identity: female Do you feel safe at home: Yes Do you feel safe in your relationship?: No Female Reproductive History Menstrual Menopause type: surgical History History 3 Para 3 Hx # Term Pregnancies Multiple births Hx # Pregnancies Ectopic pregnancies AB induced Hx Number of Living Children 3 AB spontaneous Exam Narrative Exam Narrative: 1.Const: Well-nourished, Well-developed, appearing stated age 2.Eyes: PERRL, no conjunctival injection, and symmetrical lids. 3.ENT: Atraumatic external nose and ears. Moist MM. Neck: Symmetric, trachea midline, No thyromegaly. 4.CVS: +S1/S2, No murmurs or gallops. Peripheral pulses 2+ and equal in all extremities. Brisk capillary refill in all extremities. 5.RESP: Unlabored respiratory effort. Clear to auscultation bilaterally. No wheezes rales or rhonchi 6.GI: Soft, nondistended, notable epigastric tenderness. Pain present in the right upper, mid, and left upper abdominal quadrants. No pain at McBurney's point. Negative Germain sign. 7.MSK: Normocephalic/Atraumatic, Extremities w/o deformity or ttp No cyanosis or clubbing, Normal movement of all extremities 8.Skin: Warm, Dry. No rashes or lesions. 9.Neuro: sales effectiveness manager II-XII grossly intact. Sensation grossly intact, no focal neurologic deficits. 10.Psych: (AAO) x3. Appropriate mood and affect, but appearing nervous and tearful. Course Vital Signs Vital signs: Vital Signs Temperature 36.3 C L 12/24/19 04:46 Pulse 93 H 12/24/19 04:46 Respiratory Rate 18 12/24/19 04:46 Blood Pressure 185/95 H 12/24/19 04:46 Pulse Oximetry 95 12/24/19 04:46 Temperature 36.3 C L 12/24/19 04:46 Temperature Source Temporal Artery Scan 12/24/19 04:46 Pulse 93 H 12/24/19 04:46 Respiratory Rate 18 12/24/19 04:46 Blood Pressure 185/95 H 12/24/19 04:46 Blood Pressure Position Sitting 12/24/19 04:46 Pulse Oximetry 95 12/24/19 04:46 Oxygen Delivery Method Room Air 12/24/19 04:46 Oxygen Flow Rate 0 12/24/19 04:46
[2019-12-24] MEDS: Ondansetron 4 MG/2 ML VIAL IVP (05:10)
[2019-12-24 05:17] LABS: Lactate 1.8 mmol/L (0.6-1.4)
[2019-12-24] MEDS: FAMOTIDINE 20 MG/50 ML BAG 200 MG IVPB (05:17)
[2019-12-24] MEDS: Normal Saline 1,000 ML 1000 ML IV (05:17)
[2019-12-24 05:18] LABS: Abs Immature Grans 0.04 10^3/uL (0.0-0.06); Absolute Basophil Count 0.03 10^3/uL (0.0-0.2); Absolute Eosinophil Count 0.03 10^3/uL (0.0-0.7); Absolute Lymphocyte Count 1.27 10^3/uL (1.2-3.4); Absolute Monocyte Count 0.55 10^3/uL (0.1-0.8); Absolute Neutrophil Count 5.94 10^3/uL (1.2-6.7); Basophils % 0.4; Eosinophils % 0.4; HCT 40.1 % (36.0-46.0); HGB 12.8 g/dL (11.2-15.7); Immature Grans % 0.5; Lymphocytes % 16.2; MCHC 31.9 % (32.0-36.0); MCV 81.3 fL (80-95); MPV 9.6 fL (8.0-11.0); Neutrophils % 75.5; Nucleated RBC 0 %; Platelet Count 294 10^3/uL (130-400); RBC 4.93 10^6/uL (3.93-5.22); RDW 14.5 % (11.7-14.6); RDW-SD 42.8 fL; WBC 7.86 10^3/uL (4.4-10.8)
[2019-12-24 05:37] LABS: ALT 73 U/L (14-59); AST 43 U/L (15-37); Albumin 4.3 g/dL (3.4-5.0); Alkaline Phosphatase 86 U/L (46-116); Anion Gap 10.5 mmol/L (3-11); BUN 16 mg/dL (7-18); Bilirubin, Total 0.5 mg/dL (0.2-1.0); CO2 27.5 mmol/L (21.0-32.0); CREATININE 0.93 mg/dL (0.55-1.02); Calcium 9.3 mg/dL (8.5-10.1); Chloride 101 mmol/L (98-107); Glucose 136 mg/dL (74-106); Lipase 156 U/L (73-393); Potassium 3.7 mmol/L (3.5-5.1); Sodium 139 mmol/L (136-145); Total Protein 8.2 g/dL (6.4-8.2); Troponin I < 0.05 ng/mL (<0.06)
[2019-12-24] MEDS: Omnipaque 350 MG/ML 100 ML BTL IJ (05:53)
[2019-12-24] MEDS: Normal Saline - Diluent 50 ML VIAL IV (06:38)
--- NOTE | 2019-12-24 06:49 | DI.VRAD_ITS ---
PROCEDURE INFORMATION: Exam: CT Chest With Contrast Exam date and time: 12/24/2019 4:58 AM Age: 64 years old Clinical indication: Abdominal pain; Chest pain; Type not specified; Patient HX: Chest tightness, epigastric pain, vomiting, wrenching, R/O esophageal rupture TECHNIQUE: Imaging protocol: Computed tomography of the chest with intravenous contrast. Radiation optimization: All CT scans at this facility use at least one of these dose optimization techniques: automated exposure control; mA and/or kV adjustment per patient size (includes targeted exams where dose is matched to clinical indication); or iterative reconstruction. Contrast material: OMNNIPAQUE 350; Contrast volume: 100 ml; Contrast route: INTRAVENOUS (IV); COMPARISON: CT CHEST LUNG CANCER SCREEN 03/07/2019 1:16 PM FINDINGS: Lungs: No consolidation. No masses. Minimal emphysema Pleural space: Unremarkable. No pneumothorax. No pleural effusion. Heart: Coronary calcifications. No cardiomegaly. No pericardial effusion. Mediastinal space: Mild esophageal thickening. Question minimal distal paraesophageal fluid Aorta: Unremarkable. No aortic aneurysm. Lymph nodes: Unremarkable. No enlarged lymph nodes. Bones/joints: Unremarkable. No acute fracture. Soft tissues: Unremarkable. IMPRESSION: Mild distal esophagitis. Minimal distal paraesophageal fluid which is nonspecific. No pleural effusion or pneumothorax. If clinically concerned for subtle esophageal rupture, dedicated esophagram may be helpful Coronary artery disease PROCEDURE INFORMATION: Exam: CT Abdomen With Contrast Exam date and time: 12/24/2019 4:58 AM Age: 64 years old Clinical indication: Abdominal pain; Chest pain; Type not specified; Patient HX: Chest tightness, epigastric pain, vomiting, wrenching, R/O esophageal rupture TECHNIQUE: Imaging protocol: Computed tomography images of the abdomen with intravenous contrast. Radiation optimization: All CT scans at this facility use at least one of these dose optimization techniques: automated exposure control; mA and/or kV adjustment per patient size (includes targeted exams where dose is matched to clinical indication); or iterative reconstruction. Contrast material: OMNNIPAQUE 350; Contrast volume: 100 ml; Contrast route: INTRAVENOUS (IV); COMPARISON: CT CHEST LUNG CANCER SCREEN 03/07/2019 1:16 PM FINDINGS: Liver: Hepatomegaly and fatty infiltration. Question mild nodular contour to the liver No mass. Gallbladder and bile ducts: Normal. No calcified stones. No ductal dilation. Pancreas: Normal. No ductal dilation. Spleen: Normal. No splenomegaly. Adrenals: Normal. No mass. Kidneys and ureters: Normal. No hydronephrosis. Stomach and bowel: Visualized stomach and bowel are unremarkable. No obstruction. No mucosal thickening. Intraperitoneal space: Unremarkable. No free air. No significant fluid collection. Lymph nodes: Unremarkable. No enlarged lymph nodes. Vasculature: Atherosclerosis. No abdominal aortic aneurysm. Bones/joints: Unremarkable. No acute fracture. No dislocation. Soft tissues: Unremarkable. IMPRESSION: No acute findings. Fatty infiltration of the liver and hepatomegaly Question cirrhosis Dictated and Authenticated by: Last Sargent MD. Ordering:CAL Mandujano MD
== END 2019-12-24 07:38 | disposition home or self-care (01) ==
PROVIDERS: Emergency Provider Student in an Organized Health Care Education/Training Program; PCP Nurse Practitioner Family
DX: K29.00 Acute gastritis without bleeding (principal); K21.0 Gastro-esophageal reflux disease with esophagitis; R11.10 Vomiting, unspecified; R10.13 Epigastric pain
CPT/HCPCS: 36415; 80053; 83690; 93005; 96361; 96374; 96375; 99285; 71260; 74160; 83605; 84484; 85025; 93010; J2405; J3490

== ENCOUNTER 2020-03-12 04:00 | Outpatient (CLI) | payer BC, SELFPAY ==
[2020-03-12 13:22] LABS: Hemoglobin A1C 6.3 % (<5.7)
[2020-03-12 13:36] LABS: ALT 61 U/L (14-59); AST 32 U/L (15-37); Albumin 4.1 g/dL (3.4-5.0); Alkaline Phosphatase 84 U/L (46-116); Anion Gap 8.5 mmol/L (3-11); BUN 15 mg/dL (7-18); Bilirubin, Total 0.4 mg/dL (0.2-1.0); CO2 27.5 mmol/L (21.0-32.0); CREATININE 0.86 mg/dL (0.55-1.02); Calcium 8.9 mg/dL (8.5-10.1); Chloride 104 mmol/L (98-107); Cholesterol 193 mg/dL (<200); Glucose 87 mg/dL (74-106); HDL Cholesterol 33 mg/dL (40-60); Potassium 4.7 mmol/L (3.5-5.1); Sodium 140 mmol/L (136-145); Total Protein 7.5 g/dL (6.4-8.2); Triglyceride 522 mg/dL (<150)
[2020-03-12 13:49] LABS: LDL CHOLESTEROL 83 mg/dL (<100)
== END 2020-03-12 04:20 ==
PROVIDERS: PCP Nurse Practitioner Family; Visit Provider Nurse Practitioner Family
DX: E78.1 Pure hyperglyceridemia (principal); R73.03 Prediabetes; K22.70 Barrett's esophagus without dysplasia
CPT/HCPCS: 36415; 80053; 80061; 83721; 83036

== ENCOUNTER 2020-04-02 00:17 | Outpatient (CLI) | payer BC, SELFPAY ==
--- NOTE | 2020-04-02 11:55 | DI.MAMMO_ITS ---
EXAM: MAMMO SCREENING CLINICAL HISTORY: screening,Z12.39 TECHNIQUE: Mammograms were interpreted according to the usual protocol including computer analysis w [employer] CAD system, tomosynthesis and C-view imaging. COMPARISON: FINDINGS: The breasts are heterogeneously dense. There are multiple areas of nodularity seen bilaterally. No gross interval significant change in appearance noted in comparison with multiple prior examinations including February 2019. No new mass or clumped microcalcification seen. IMPRESSION: No specific evidence of malignancy at this time. Follow-up mammogram suggested in 12 months to re-ev aluate multiple apparently stable areas of bilateral breast nodularity. BI-RADS Category 2 - Benign Findings Breast Density - Category B - Scattered areas of fibroglandular density
== END 2020-04-02 00:37 ==
PROVIDERS: PCP Nurse Practitioner Family; Visit Provider Nurse Practitioner Family
DX: Z12.31 Encounter for screening mammogram for malignant neoplasm of breast (principal)
CPT/HCPCS: 77063; 77067

== ENCOUNTER 2020-07-25 05:02 | Outpatient (CLI) | payer BC, SELFPAY ==
--- NOTE | 2020-07-25 07:15 | DI.RAD_ITS ---
EXAM: XR KNEE RT 3V AP,LAT,NADINE CLINICAL HISTORY: Right anteromedial knee with firm nonmobile lump,R22.9. TECHNIQUE: 2D digital imaging was performed. COMPARISON: No exams were available for comparison FINDINGS: BONES: No acute fracture is present. No bony destructive lesion is seen. JOINTS: The knee is normally aligned. No joint effusion is seen. No significant degenerative changes . SOFT TISSUE: A BB marker was placed over the area of palpable abnormality which was thought lies abov e the level of the tibial tubercle. No mass or calcification is visible. an enthesophyte is seen at the quadriceps insertion. IMPRESSION: Unremarkable radiographs of the right knee. DATA REPOSITORY: RADIATION DOSE DELIVERED:
== END 2020-07-25 05:22 ==
PROVIDERS: PCP Nurse Practitioner Family; Visit Provider Nurse Practitioner Family
DX: R22.41 Localized swelling, mass and lump, right lower limb (principal)
CPT/HCPCS: 73562

== ENCOUNTER 2020-09-05 03:46 | Outpatient (CLI) | payer BC, SELFPAY ==
--- NOTE | 2020-09-05 07:00 | DI.MRI_ITS ---
Exam(s) MR LOWER JOINT RT WO EXAM: MR LOWER JOINT RT WO CLINICAL HISTORY: PAIN, RT KNEE MASS,R22.41. TECHNIQUE: Multiplanar multisequence MRI was performed. COMPARISON: CR XR KNEE RT 3V AP,LAT,NADINE from 07/25/2020 FINDINGS: BONES: There is no fracture or contusion pattern. There is an enthesophyte at the superior patella. JOINTS: Articular cartilage is unremarkable. No effusion is present. TENDONS: Extensor mechanism: Unremarkable. Medial retinaculum: Unremarkable. Lateral retinaculum: Unremarkable. Popliteus: Unremarkable. MUSCLES: Unremarkable. MENISCI: The medial meniscus is unremarkable. The lateral meniscus is unremarkable. SOFT TISSUES: Unremarkable. LIGAMENTS: Anterior Cruciate: Unremarkable. Posterior Cruciate: Unremarkable. Medial Collateral:Unremarkable. Lateral Collateral: Unremarkable. OTHER: IMPRESSION: 1. No acute meniscal or ligament tear. 2. No evidence of a soft tissue mass. DATA REPOSITORY:
== END 2020-09-05 04:06 ==
PROVIDERS: PCP Nurse Practitioner Family; Visit Provider Student in an Organized Health Care Education/Training Program
DX: M25.561 Pain in right knee (principal); R22.41 Localized swelling, mass and lump, right lower limb
CPT/HCPCS: 73721

== ENCOUNTER 2021-04-08 01:32 | Outpatient (CLI) | payer BC, SELFPAY ==
[2021-04-08 13:29] LABS: Anion Gap 7.8 mmol/L (3-11); BUN 14 mg/dL (7-18); CO2 29.2 mmol/L (21.0-32.0); CREATININE 1.1 mg/dL (0.55-1.02); Calcium 9.1 mg/dL (8.5-10.1); Chloride 102 mmol/L (98-107); Cholesterol 198 mg/dL (<200); Estimated GFR 50.01 (mL/min/1.73m2); Glucose 75 mg/dL (74-106); HDL Cholesterol 37 mg/dL (40-60); Potassium 4.4 mmol/L (3.5-5.1); Sodium 139 mmol/L (136-145); Triglyceride 632 mg/dL (<150)
[2021-04-08 13:32] LABS: Hemoglobin A1C 5.9 % (<5.7)
[2021-04-08 13:40] LABS: LDL CHOLESTEROL 90 mg/dL (<100)
== END 2021-04-08 01:33 | disposition home or self-care (01) ==
LOC: LOS 01:33
PROVIDERS: PCP Nurse Practitioner Family; Visit Provider Nurse Practitioner Family
DX: R73.03 Prediabetes (principal)
CPT/HCPCS: 36415; 80048; 80061; 83721; 83036

== ENCOUNTER 2021-04-09 01:43 | Outpatient (CLI) | payer OTHER, BC, SELFPAY ==
--- NOTE | 2021-04-09 06:45 | DI.MRI_ITS ---
Exam(s) MR LUMBAR SPINE WO EXAM: MR LUMBAR SPINE WO CLINICAL HISTORY: Lumbar back pain with radiation to RLE,M54.16. TECHNIQUE: Multiplanar multisequence MRI of the Lumbar spine was performed. COMPARISON: There are no plain films of the lumbar spine available time this MRI interpretation. FINDINGS: Five lumbar vertebrae are presumed. Conus medullaris is at normal level. There is no evidence of conus mass nor subjacent clumping of in trathecal nerve roots to suggest arachnoiditis. 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 Bones:There are no fractures nor ominous osseous lesions in the lumbar vertebral bodies and visualize d sacrum. With respect to the individual levels... T12-L1: There is a right paracentral disc herniation at this level. This extends posteriorly 2 dilma meters and is approximately 7 millimeters wide and extends up behind the T12 vertebral body for dista nce of 7 millimeters. This indents the thecal sac but not the distal spinal cord. There also appear s to be a central disc bulge at T11-T12 level, seen on the sagittal images. L1-2: Normal disc height and signal. No disc herniation nor central canal stenosis.No foraminal steno sis L2-3: Normal disc height. No disc herniation nor central canal stenosis.No foraminal stenosis.No face t arthropathy. L3-4: Normal disc height. Broad symmetrical annular bulging which extends into the floor of the exit ing left neural foramen. Central canal dimensions are lower normal. No prominent foraminal stenosis . No facet arthropathy. L4-5: There is mild-moderate disc height loss on the right side of the disc space. Mild annular bulg ing, slightly more prominent on the right side but there is no dominant disc herniation. Central can al dimensions are lower normal. No significant foraminal stenosis. Mild degenerative changes in the right facet joint. L5-S1: Normal disc height. However, there is a central-right paracentral disc protrusion at this lev el, this commercial litigation attorney disc herniation extending posteriorly 7 millimeters and measuring approximately 9-1 0 millimeters wide. This disc herniation indents the central and right side of the thecal sac and ad jacent nerve root. The actual osseous canal dimensions are within normal limits. The disc protrusio n does not extend into the exiting neural foramina. No prominent foraminal stenosis. No facet arthr opathy at this level. Soft tissues: Partially included cystic septated findings in the right-side of the pelvis noted, pro bably ovarian origin. Recommend follow-up ultrasound. IMPRESSION: 1. The main finding here is a central-right paracentral disc herniation at L5-S1 level as described a jami. 2. Other findings as described individually above, including disc herniation at T12-L1 level. 3. Mild scoliosis convex left. This related to asymmetric disc space narrowing on the right side of L4-5 disc space. DATA REPOSITORY:
== END 2021-04-09 02:03 ==
PROVIDERS: PCP Nurse Practitioner Family; Visit Provider Nurse Practitioner Family
DX: M54.16 Radiculopathy, lumbar region (principal); M51.27 Other intervertebral disc displacement, lumbosacral region; M51.25 Other intervertebral disc displacement, thoracolumbar region; M41.9 Scoliosis, unspecified; M48.062 Spinal stenosis, lumbar region with neurogenic claudication
CPT/HCPCS: 72148

== ENCOUNTER 2021-04-28 00:56 | Outpatient (CLI) | payer BC, SELFPAY ==
--- NOTE | 2021-04-28 07:00 | DI.CTLCSR_ITS ---
Exam(s) CT CHEST LUNG CANCER SCREEN EXAM: CT CHEST LUNG CANCER SCREEN CLINICAL HISTORY: Screening for lung cancer,FORMER SMOKER, Z87.891 TECHNIQUE: Imaging Protocol: Axial computed tomography images with coronal and sagittal reformatted images were created and reviewed COMPARISON: CT CT CHEST LUNG CANCER SCREEN from 03/07/2019 FINDINGS: Tracheobronchial tree: Patent where visualized. Pulmonary parenchyma: No consolidation or dominant measurable mass. No architectural distortion. Ther e are calcified granuloma present. Lung Nodules: There is a 3 mm noncalcified pulmonary nodule in the right upper lobe. Mediastinum and Bea: No dominant adenopathy or fluid collection. The esophagus is unremarkable. Thyroid gland: Unremarkable. Lymph nodes: Unremarkable. Pleura: No effusion or pneumothorax. Heart: The heart is not dilated. Coronary artery calcifications are present. No pericardial effusion . Aorta: Thoracic aorta non-dilated.Atherosclerosis is present. Upper abdomen: Unremarkable. Soft Tissues: Unremarkable. Bones: Within normal limits. IMPRESSION: 3 mm noncalcified pulmonary nodule in the right upper lobe. Lung RADS Cat 2 - Benign Appearance / Behavior: Nodules with a very low likelihood of becoming a clin ically active cancer due to size or lack of growth Lung-RADS 1.0 CATEGORIES: Category 0 - Prior chest CT exam(s) being located for comparison. Category 1 - Annual screening in 12 months. No nodules or definitely benign nodules. Category 2 - Annual screening in 12 months. Benign appearance. Nodules with low likelihood of becomin g active cancer. Category 3 - 6-month follow-up. Probably benign. Short-term follow-up suggested. Nodules with low lik elihood of becoming active cancer. Category 4A - 3-month follow-up and CT/PET if >8 mm in size. Suspicious finding. Findings which requi re additional testing. Category 4B - Findings which require additional testing and tissue sampling. Suspicious finding. Modifier S- Potentially clinically significant finding. (Non lung cancer) RADIATION DOSE DELIVERED: 72.97mGy.cm Total DLP 1.84mGy CTDIvol 72.97mGy.cm Total DLP 1.84mGy CTDIvol DATA REPOSITORY: All CT scans at this facility are submitted to the National Radiology Data Registry (NRDR) Dose Index Registry (DIR) with the [employer] (ACR). RADIATION OPTIMIZATION: All CT scans at this facility use at least one of these dose optimization te chniques: automated exposure control; mA and/or kV adjustment per patient size (includes targeted exa ms where dose is matched to clinical indication); or iterative reconstruction.
--- NOTE | 2021-04-28 11:10 | DI.MAMMO_ITS ---
Exam(s) MAMMO SCREENING EXAM: MAMMO SCREENING CLINICAL HISTORY: screening,Z12.39 TECHNIQUE: Bilateral full field digital CC and MLO mammographic images were obtained with 3D tomosyn thesis and utilizing computer aided detection (CAD). COMPARISON: Available for comparison. FINDINGS: Masses/Architectural Distortion: None seen. There again seen several bilateral breast nodules. There is a stable nodule in the central left breast which shows internal calcifications which may represen t a degenerating fibroadenoma. Microcalcifications: No suspicious pleomorphic-type are seen. Skin Thickening/Nipple Retraction: None. IMPRESSION: 1. No significant interval change with no specific features of malignancy noted. 2. Unless there is more urgent need, screening mammography is recommended, as per [employer] guidelines. BI-RADS Category 2 - Benign Findings Breast Density - Category B - Scattered areas of fibroglandular density Breast density category C or D implies that the patient has dense breast tissue. Dense breast tissue is very common and is not abnormal but dense breast tissue can make it harder to find cancer on a ma mmogram. Also, dense breast tissue may increase their breast cancer risk. This information about the result of the mammogram report was provided to the patient to raise their awareness. Use this report when you speak with the patient about their risks for breast cancer, which includes their family hist ory. At that time, you may recommend for more screening tests (Ultrasound or MRI) as they might be us eful based on their risk. A negative radiographic report should not delay biopsy if a dominant or clinically suspicious mass is present. Up to ten percent of cancers are not identified on mammography. A negative report may reinforce clinical impression. Adenosis and dense breasts may obscure an underlying neoplasm. False positive reports average 6 to 10%. Patient will receive a letter notifying them of these results.
== END 2021-04-28 01:16 ==
PROVIDERS: PCP Nurse Practitioner Family; Visit Provider Nurse Practitioner Family
DX: Z87.891 Personal history of nicotine dependence (principal); Z12.31 Encounter for screening mammogram for malignant neoplasm of breast; Z12.2 Encounter for screening for malignant neoplasm of respiratory organs; R91.1 Solitary pulmonary nodule
CPT/HCPCS: 71271; 77063; 77067

== ENCOUNTER 2021-07-08 13:13 | Outpatient (CLI) | payer OTHER, SELFPAY ==
--- NOTE | 2021-07-08 13:00 | RT.EKG_ITS ---
APPROVED REPORT Exam: Resting ECG Reason for Exam: surgery on 07/28/21 Patient Location: O HR:86 bpm ECG Measurements Heart Rate 86 AXIS DE 126 P 34 QRSd 73 QRS 42 QT 407 T 60 QTc 488 Conclusion Sinus rhythm...normal P axis, V-rate 60- 99 Ventricular premature complex...V complex w/ short R-R interval
== END 2021-07-08 13:14 | disposition home or self-care (01) ==
LOC: DI.CM 13:14
PROVIDERS: PCP Nurse Practitioner Family; Visit Provider Nurse Practitioner Family
DX: Z01.818 Encounter for other preprocedural examination (principal); R94.31 Abnormal electrocardiogram [ECG] [EKG]
CPT/HCPCS: 93010

== ENCOUNTER 2021-07-15 03:52 | Outpatient (CLI) | payer OTHER, SELFPAY ==
[2021-07-15 15:14] LABS: Abs Immature Grans 0.02 10^3/uL (0.0-0.06); Absolute Basophil Count 0.06 10^3/uL (0.0-0.2); Absolute Eosinophil Count 0.17 10^3/uL (0.0-0.7); Absolute Lymphocyte Count 2.55 10^3/uL (1.2-3.4); Absolute Monocyte Count 0.62 10^3/uL (0.1-0.8); Absolute Neutrophil Count 3.04 10^3/uL (1.2-6.7); Basophils % 0.9; Eosinophils % 2.6; HCT 33.5 % (36.0-46.0); HGB 10.2 g/dL (11.2-15.7); Immature Grans % 0.3; Lymphocytes % 39.5; MCH 22.6 pg (27.0-33.0); MCHC 30.4 % (32.0-36.0); MCV 74.3 fL (80-95); MPV 9.3 fL (8.0-11.0); Monocytes % 9.6; Neutrophils % 47.1; Nucleated RBC 0 %; Platelet Count 259 10^3/uL (130-400); RBC 4.51 10^6/uL (3.93-5.22); RDW 17.1 % (11.7-14.6); RDW-SD 45.5 fL; WBC 6.46 10^3/uL (4.4-10.8)
[2021-07-15 15:43] LABS: Anisocytosis 1+; Diff Comment RBC Morph Reviewed
[2021-07-15 15:44] LABS: Hypochromasia 1+; Microcytosis 1+; Poikilocytes 1+
== END 2021-07-15 03:53 | disposition home or self-care (01) ==
PROVIDERS: PCP Nurse Practitioner Family; Visit Provider Nurse Practitioner Family
DX: Z01.818 Encounter for other preprocedural examination (principal)
CPT/HCPCS: 36415; 80053; 85025

== ENCOUNTER 2021-07-16 12:00 | Outpatient (REF) | payer OTHER, SELFPAY ==
[2021-07-17 10:28] LABS: Alkaline Phosphatase 70 U/L (46-116); BUN 10 mg/dL (7-18)
[2021-07-17 11:08] LABS: ALT 38 U/L (14-59); AST 32 U/L (15-37); Albumin 3.8 g/dL (3.4-5.0); Bilirubin, Total 0.4 mg/dL (0.2-1.0); Calcium 8.7 mg/dL (8.5-10.1); Chloride 104 mmol/L (98-107); Estimated GFR 55.82 (mL/min/1.73m2); Glucose 106 mg/dL (74-106); Potassium 4.1 mmol/L (3.5-5.1); Sodium 140 mmol/L (136-145)
[2021-07-17 11:10] LABS: Anion Gap 8.4 mmol/L (3-11); CO2 27.6 mmol/L (21.0-32.0)
== END 2021-07-16 12:01 | disposition home or self-care (01) ==
LOC: LBN 12:00
PROVIDERS: PCP Nurse Practitioner Family; Visit Provider Nurse Practitioner Family
DX: Z01.818 Encounter for other preprocedural examination (principal)
CPT/HCPCS: 80053

== ENCOUNTER 2021-11-24 01:26 | Outpatient (CLI) | payer MEDICARE, MEDICAID, SELFPAY ==
[2021-11-24 12:55] LABS: Abs Immature Grans 0.02 10^3/uL (0.0-0.06); Absolute Basophil Count 0.05 10^3/uL (0.0-0.2); Absolute Eosinophil Count 0.16 10^3/uL (0.0-0.7); Absolute Lymphocyte Count 2.31 10^3/uL (1.2-3.4); Absolute Neutrophil Count 2.63 10^3/uL (1.2-6.7); Basophils % 0.9; Eosinophils % 2.8; HGB 9.8 g/dL (11.2-15.7); Immature Grans % 0.4; Lymphocytes % 40.7; MCH 21.4 pg (27.0-33.0); MCHC 29.7 % (32.0-36.0); MCV 72 fL (80-95); MPV 10.2 fL (8.0-11.0); Monocytes % 8.8; Neutrophils % 46.4; Platelet Count 282 10^3/uL (130-400); RBC 4.57 10^6/uL (3.93-5.22); RDW 16.6 % (11.7-14.6); WBC 5.67 10^3/uL (4.4-10.8)
[2021-11-24 13:10] LABS: Total Iron Binding Capacity 525 ug/dL (250-450)
[2021-11-24 13:19] LABS: Ferritin 11 ng/mL (8-252)
[2021-11-24 13:57] LABS: Diff Comment RBC Morph Reviewed
[2021-11-24 13:58] LABS: Anisocytosis 1+; Hypochromasia 1+; Microcytosis 1+; Poikilocytes 1+; Polychromasia Present
== END 2021-11-24 01:27 | disposition home or self-care (01) ==
LOC: LOS 01:27
PROVIDERS: PCP Nurse Practitioner Family; Visit Provider Nurse Practitioner Family
DX: D50.9 Iron deficiency anemia, unspecified (principal)
CPT/HCPCS: 36415; 82728; 83550; 85025

== ENCOUNTER 2021-12-31 10:05 | Outpatient (CLI) | payer MEDICARE, MEDICAID, SELFPAY ==
--- NOTE | 2021-12-31 10:00 | DI.RAD_ITS ---
Exam(s) XR SHOULDER RT COMPLETE 2+V EXAM: XR SHOULDER RT COMPLETE 2+V CLINICAL HISTORY: pain in shoulder TECHNIQUE: COMPARISON: No exams were available for comparison FINDINGS: Two views were obtained. There is dense amorphous calcification associated with the distal supraspin atus tendon consistent with a calcific peritendinitis. There are mild degenerative changes of the AC joint and glenohumeral joint. No other bony or soft tissue abnormality seen. IMPRESSION: RADIATION DOSE DELIVERED: Total DLP
== END 2021-12-31 10:06 | disposition home or self-care (01) ==
LOC: DIORS 10:06
PROVIDERS: PCP Nurse Practitioner Family; Referring Provider Nurse Practitioner Family; Visit Provider Physician Assistant Surgical
DX: M25.511 Pain in right shoulder (principal); M25.811 Other specified joint disorders, right shoulder; M19.011 Primary osteoarthritis, right shoulder
CPT/HCPCS: 73030

== ENCOUNTER 2022-01-04 03:45 | Outpatient (CLI) | payer MEDICARE, MEDICAID, SELFPAY ==
[2022-01-04 12:21] LABS: Source Nasal/Nares
[2022-01-04 15:28] LABS: COVID-19 PCR Negative (Negative)
== END 2022-01-04 03:46 | disposition home or self-care (01) ==
LOC: LBO 03:45
PROVIDERS: PCP Nurse Practitioner Family; Visit Provider Student in an Organized Health Care Education/Training Program
DX: Z20.822 Contact with and (suspected) exposure to COVID-19 (principal)
CPT/HCPCS: 87635

== ENCOUNTER 2022-01-05 09:47 | Day surgery (SDC) | payer MEDICARE, MEDICAID, SELFPAY ==
--- NOTE | 2022-01-05 07:27 | W.PM.DSUDISC ---
Discharge Plan Disposition Patient Disposition: HOME Condition: Good Discharge Details Reason For Visit: Right Knee Lipoma Attending Provider: Ming Dhillon Primary Care Provider: Samantha Escalante Home Meds and New Rx's Prescriptions: New hydrocodone-acetaminophen 5-325 mg tablet 1 tab PO Q6H PRN (Reason: severe pain) Qty: 3 0RF Rx Instructions: Take one tablet up to every 6 hours as needed for severe postoperative pain acetaminophen 500 mg tablet 500 mg PO Q6H PRN (Reason: pain) Qty: 60 2RF ibuprofen 600 mg tablet 600 mg PO TID PRN (Reason: pain) Qty: 60 0RF Continued baclofen 5 mg tablet 5 mg PO TID PRN (Reason: back pain) Qty: 90 0RF pantoprazole 20 mg tablet,delayed release (DR/EC) 20 mg PO DAILY PRN (Reason: heartburn) Qty: 90 4RF diclofenac sodium [Voltaren Arthritis Pain] 1 % gel 4 g topical QID MDD 16 grams Qty: 100 0RF Rx Instructions: apply to single knee, ankle, foot; for foot includes sole/toes/top of foot multivitamin [Daily Multi-Vitamin] 1 EACH tablet 1 ea PO DAILY Fish Oil 1 EACH capsule 2 ea PO DAILY albuterol sulfate 90 mcg/actuation HFA aerosol inhaler 2 inh IH Q6H PRN (Reason: shortness of breath or wheezing) Qty: 18 3RF ferrous sulfate 325 mg (65 mg iron) tablet 325 mg PO BID Qty: 180 4RF Discharge Instructions Additional Instructions: Knee Lipoma Excision Discharge Instructions Activity: You may move and walk as tolerated. You will find some stiffness and weakness. Dressing: Keep the surgical dressing in place for at least one week. You may remove the FRANKY when you desire. After the first week it may be removed and replace with light gauze and tape or nothing. It may get wet after 3 days but avoid soaking the dressing. If it gets wet, just lightly pat dry. Medications: - You should take Tylenol and an anti-inflammatory Ibuprofen as your primary pain control medications - You have been prescribed a stronger pain medication Hydrocodone for breakthrough pain, take as needed as prescribed. Follow-up: 2 weeks Stand Alone Forms: Anesthesia Discharge InstAna, Hernesto Sanders ([facility]) Referrals: Ming Dhillon MD [ [facility] STAFF PHYSICIAN] - Activity:: Elevate Remove Dressings/Wound Care:: Do Not Remove Shower/Bathe:: Cover Diet:: As Tolerated Discharge Orders Discharge Orders: Discharge Order (Routine); Ordered 01/05/22 Ordered By: Pamela Turner
[2022-01-05 09:50] VITALS: BP 186/84; PULSE 69; RESP 18; TEMP 36.6; O2SAT 98
[2022-01-05] MEDS: Lactated Ringers 1,000 ML 80 ML IV (10:22)
--- NOTE | 2022-01-05 10:46 | W.ANESPRE ---
General Info Date of Service Date Performed: 01/05/22 Height: 4 ft 11 in Weight: 74.5 kg Body Mass Index (BMI): 33.1 Surgical Procedure: Operation Date: 01/05/22 13:25 Proposed Procedure Side Surgeon p Knee Excision Lipoma Right Ming Dhillon MD Meds Allergies and Home Medications Allergies Allergy/AdvReac Type Severity Reaction Status Date / Time codeine AdvReac Intermediate Skin Rash Verified 01/05/22 10:00 omeprazole AdvReac Intermediate Rash, Verified 01/05/22 10:00 itching all over Penicillins AdvReac Intermediate Skin Rash Verified 01/05/22 10:00 Pousdge-WQI-IlG Reductase AdvReac Intermediate MUSCLE Verified 01/05/22 10:00 Inhibitor ACHES [Xxjuzdy-Ekt-Djo Reductase Inhibitor] esomeprazole AdvReac Mild Pruritus Verified 01/05/22 10:00 pantoprazole AdvReac Mild Pruritus Verified 01/05/22 10:00 metronidazole AdvReac Unknown DIARRHEA Verified 01/05/22 10:00 Home Medication Medication Instructions Recorded multivitamin (Daily Multi-Vitamin 1 ea PO DAILY 09/21/17 tablet) omega-3 fatty acids-fish oil 340 2 ea PO DAILY 11/16/17 mg-1,000 mg capsule (Fish Oil) albuterol sulfate 90 mcg/actuation 2 inh inhalation Q6H PRN shortness 07/25/19 aerosol inhaler of breath or wheezing #18 grams baclofen 5 mg tablet 5 mg PO TID PRN back pain #90 tabs 04/06/21 pantoprazole 20 mg tablet,delayed 20 mg PO DAILY PRN heartburn #90 04/06/21 release tabs diclofenac sodium 1 % topical gel 4 g topical QID right trochanteric 05/20/21 (Voltaren Arthritis Pain) bursitis #100 grams ferrous sulfate 325 mg (65 mg 325 mg PO BID #180 tabs 12/17/21 iron) tablet acetaminophen 500 mg tablet 500 mg PO Q6H PRN pain #60 tabs 01/05/22 hydrocodone 5 mg-acetaminophen 325 1 tab PO Q6H PRN severe pain #3 01/05/22 mg tablet tabs ibuprofen 600 mg tablet 600 mg PO TID PRN pain #60 tabs 01/05/22 Current Visit Medications: Current Medications Generic Name Dose Route Start Last Admin Trade Name Freq PRN Reason Stop Dose Admin Acetaminophen 650 mg 01/05/22 07:26 Acetaminophen 325 Mg Tab PO Q4H PRN PRN Hydrocodone Bitart/Acetaminophen 0 tab 01/05/22 07:26 Hydrocodone 5/Acetaminophen 325 Tab PO Q3H PRN PRN Pain Ringer's Solution 1,000 mls @ 80 mls/hr 01/05/22 06:00 01/05/22 10:22 IV 02/03/22 23:59 80 mls/hr INFUSION ALEXI Administration Cefazolin Sodium/Dextrose 2 gm in 50 mls @ 100 mls/hr 01/05/22 06:00 Ancef Duplex IVPB 01/05/22 16:00 PREOP ALEXI IV Miscellaneous Supplies 1 each 01/05/22 06:00 Iv Access IV 02/03/22 23:59 DIRECTED ALEXI Sodium Chloride 0 ml 01/05/22 06:00 Normal Saline Flush 10 Ml Syr IV 02/03/22 23:59 PRN PRN Sodium Chloride 0 ml 01/05/22 06:00 Normal Saline 10 Ml Vial IJ 02/03/22 23:59 DIRECTED PRN Sterile Water 0 ml 01/05/22 06:00 Water,Injection,Sterile 10 Ml Vial IJ 02/03/22 23:59 DIRECTED PRN PFSH Active Problems Active Problems: Problem Status Onset Code Hypertriglyceridemia E78.1 Barretts esophagus K22.70 Prediabetes R73.03 Iron deficiency anemia D50.9 Elevated BP without diagnosis of hypertension R03.0 Trigger finger, left ring finger M65.342 Fatty liver disease, nonalcoholic K76.0 Lumbar disc herniation with radiculopathy M51.16 Trochanteric bursitis of right hip M70.61 Mass of joint of right knee M25.861 Calcific tendinitis of right shoulder M75.31 Medical History Medical History Back pain with history of spinal surgery Depressive disorder per pt. states its situational, and is no longer. Serrated adenoma of colon Tubular adenoma of colon Surgical History Surgical History (Updated 01/05/22 @ 10:00 by Tatyana Galvan) History of section History of discectomy History of esophagogastroduodenoscopy (EGD) (03/27/19) Alford's esophagus. S/P appendectomy S/P cataract surgery S/P colonoscopy (03/27/19) 2016- Sessile serrated adenoma and Tubular adenoma 2019- Hyperplastic polyps x10. S/P laparoscopic hysterectomy Right ovary remains S/P left oophorectomy S/P tonsillectomy and adenoidectomy S/P trigger finger release (09/04/18) Left thumb 09/04/18, right thumb 05/21/19 Tobacco Smoking/Tobacco Use Status: Former Tobacco Use Passive smoking exposure: Yes Second hand exposure: Yes Alcohol Alcohol Intake: never Substance Use Substance use: Never Substance use type: does not use Prental History History 3 Para 3 Hx # Term Pregnancies Multiple births Hx # Pregnancies Ectopic pregnancies AB induced Hx Number of Living Children 3 AB spontaneous Vital Signs and Lab Results Vital Signs Most Recent Vital Signs in EMR: Most Recent Vital Signs Temp Pulse Resp BP Pulse Ox 36.6 C 69 18 186/84 H 98 01/05/22 09:50 01/05/22 09:50 01/05/22 09:50 01/05/22 09:50 01/05/22 09:50 Lab Results Blood Type / Crossmatch: No Data to Display Complete Blood Count: No Data to Display Complete Metabolic Panel: No Data to Display Liver Function Panel: No Data to Display Coagulation Panel: No Data to Display Cardiac Panel: No Data to Display Arterial Blood Gas: No Data to Display Venous Blood Gas: No Data to Display Pancreas Panel: No Data to Display Thyroid Panel: No Data to Display Infectious Disease: Coronavirus (COVID-19)(PCR) Negative (Negative) 01/04/22 09:57 Coronavirus 2019 Source Nasal/Nares 01/04/22 09:57 Blood Cultures: No Data to Display Toxicology Panel: No Data to Display Imaging and Studies Imaging and Studies Study information below may be from another EMR and interpreted by another provider. Please see original notes in EMR for more complete details. EKG Summary: Conclusion Sinus rhythm...normal P axis, V-rate 60- 99 Ventricular premature complex...V complex w/ short R-R interval 07/08/21 Anesthesia Assessment and Plan Anesthesia History Personal History: No History of Anesthesia Complications Family History: No Family History of Anesthesia Complications Exercise Tolerance Exercise Tolerance: Metabolic Equivalents>4 Pertinent Negatives Pertinent Negatives: No Symptoms of GERD, No Major Cardiovascular Symptoms or Complaints and No Major Pulmonary Symptoms or Complaints Cardiac & Pulmonary Exam Cardiac Exam: Normal S1/S2 Heart Sounds Pulmonary Exam: Clear Bilateral Breath Sounds Implantable Cardiac Device Does patient have a Pacemaker or an ICD?: No Airway Exam Known Difficult Airway: Yes Mallampati Class: 2 Mouth Opening: Normal (> 3cm) Thyromental Distance: Greater than 3 cm Neck Range of Motion: Full ROM Neck Circumference: Normal Teeth Condition: Removable Dentures/Plates Upper (Removable uppers, fixed lower dentures) ASA Classification ASA Score: ASA 2 Emergency Case?: No NPO Status NPO Status: NPO Clears >2 hours, Solids >8 hours Anesthesia Plan Resuscitation Status: Full Code Anesthesia Technique: MAC Anesthesia Airway Planned: Natural Airway Monitors Used: Standard Monitors
[2022-01-05 11:06] VITALS: BMI 33.1
[2022-01-05] MEDS: ceFAZolin 2 GM/50 ML BAG IVPB (11:11)
--- NOTE | 2022-01-05 11:36 | SOFT_PTH ---
PATIENT: Lynda Pedersen LOC: [facility] U#:[id number] AGE/SX: 66/F ROOM: RE01/05/[address]: Ming Dhillon MD : [id number] BED: DIS: 01/05/2022 SPEC #: [id number] RECD: 01/05/22 12:51 STATUS: ANGELA REQ #: [id number] MULUGETA: 01/05/22 11:[address]: Ming Dhillon DEPT: Surgical Specimen RECD BY: Caprice Nguyen ENTERED: 01/05/22 12:52 SP TYPE: SOFT OTHR DR: BENITA Reyna Tissues: 1 - SOFT TISSUE MISC (INC. LIPOMA) Procedures: GROSS AND MICRO LEVEL 3 Comments: [id number]
[2022-01-05] MEDS: Bupivacaine 0.25% Pres-Free W/EPI 30 ML VIAL (11:38)
--- NOTE | 2022-01-05 11:49 | ROE_ITS ---
Date of service: 01/05/22 Time of Service: 11:49 Operative Note Operative Note DATE OF PROCEDURE: 01/05/22 PRE-OP DIAGNOSIS: Right Knee Mass POST-OP DIAGNOSIS: same (likely lipoma) PROCEDURE: Excisional biopsy of right knee mass SURGEON: Ming Dhillon ENVIRONMENTAL FIELD OFFICE MANAGER: Pamela Turner ANESTHESIA TYPE: General:No Airway Refer to Anesthesia Record ESTIMATED BLOOD LOSS: 0 PATHOLOGY: other (right knee mass) TOURNIQUET TIME: 0 COMPLICATIONS: None Patient was transported to: same day Patient's condition: stable Indications: Alicia is a 66-year-old female who has had a mass about the right knee. MRI showed what appeared to be a lipoma. It continue to bother her and cause pain. Therefore, I offered an excisional biopsy. I reviewed the risk of the procedure to include bleeding, infection, pain, stiffness, recurrence, need for repeat procedures. Despite these risks, she elected to proceed. Findings: There is a obvious mass about the anterior medial knee adjacent to the patellar tendon and extending down to the proximal tibia and synovium. It appeared to be a fibrofatty mass but not a clear lipoma. It was easily resectable from the surrounding tissues. It was sent to pathology. Procedure Description: Lynda was greeted in the preoperative holding area. Her identity was confirmed the correct site was identified and marked. The consent was reviewed the patient and signed. She was taken to the operating room placed in supine position. All bony prominences well-padded. The right leg was prepped ChloraPrep and draped in a standard fashion. Prophylactic antibiotics in the form of cefazolin were administered. A timeout was performed for safe surgery. A longitudinal incision was planned over the mass just to the medial side of the patellar tendon. The soft tissues were injected with 0.5% bupivacaine. A longitudinal incision was then made and deep dissection was carried down to the level skin only. Blunt dissection was then performed to identify the mass. It was subcutaneous in this position without significant fascial boundaries. The edges were clearly identifiable and I began to separate the mass from the surrounding tissue. It had a fibrofatty type character to it. It was elevated from the distal aspect first which went adjacent to the proximal tibial periosteum. It was elevated off the periosteum and then penetrated to an area just below the retinaculum but superficial to the synovium. This was fully resected off this area into the adjacent patellar tendon. There is no notable vascularity of the mass. There is no invasive characteristics and it was easily separable from the surrounding tissues. The mass was removed, measuring about 2 cm x 1 cm and sent to pathology. The wound was thoroughly irrigated. The deep tissues were injected with 0.5% bupivacaine. The retinaculum was closed with a #0 Monocryl. The deeper tissues were closed with a 2-0 Monocryl followed by 4-0 Monocryl in a subcuticular fashion. This was reinforced with skin glue and dressed with a Mepilex silver dressing followed by an Moises wrap. He tolerated the procedure well. She is transferred back to the day surgery unit in stable condition. She will be weightbearing as tolerated with no restrictions.
[2022-01-05 12:01] VITALS: BP 131/76; PULSE 63; RESP 16; TEMP 36.3; O2SAT 93
--- NOTE | 2022-01-05 12:23 | W.ANESPOSTOP ---
Postoperative Evaluation Date, Time and Location Date Performed: 01/05/22 Time Performed: 12:26 Patient Location: Day Surgery Unit Vital Signs Most Recent Imported Vital Signs: Most Recent Vital Signs Temp Pulse Resp BP Pulse Ox 36.3 C L 63 16 131/76 93 01/05/22 12:01 01/05/22 12:01 01/05/22 12:01 01/05/22 12:01 01/05/22 12:01 Pain Score Most Recent Pain Score: Most Recent Pain Score Pain Level 3 01/05/22 12:01 Assessment Mental Status: Awake (Alert & Oriented to Patient Baseline) Airway and Respiratory Function: Patent airway with normal (patient baseline) respiratory exam Cardiovascular Function: Hemodynamically Stable Hydration Status: Adequately Hydrated Nausea & Vomiting: No Nausea or Vomiting Pain: Pain is tolerable per patient Peripheral Nerve Block: Patient did not receive a nerve block
[2022-01-05 12:31] VITALS: BP 144/81; PULSE 59; RESP 16; TEMP 36; O2SAT 96
== END 2022-01-05 13:10 | disposition home or self-care (01) ==
PROVIDERS: PCP Nurse Practitioner Family; Visit Provider Student in an Organized Health Care Education/Training Program
PROC: (CPT 27340; principal; 2022-01-05 13:15)
DX: D17.23 Benign lipomatous neoplasm of skin and subcutaneous tissue of right leg (principal); D50.9 Iron deficiency anemia, unspecified; E78.1 Pure hyperglyceridemia; R73.03 Prediabetes
CPT/HCPCS: 27327; 88304; J0690; J1885; J2405

== ENCOUNTER 2022-01-07 05:06 | Outpatient (CLI) | payer MEDICARE, MEDICAID, SELFPAY ==
[2022-01-07 13:03] LABS: Abs Immature Grans 0.04 10^3/uL (0.0-0.06); Absolute Basophil Count 0.05 10^3/uL (0.0-0.2); Absolute Eosinophil Count 0.07 10^3/uL (0.0-0.7); Absolute Lymphocyte Count 2.03 10^3/uL (1.2-3.4); Absolute Monocyte Count 0.41 10^3/uL (0.1-0.8); Absolute Neutrophil Count 5.56 10^3/uL (1.2-6.7); Basophils % 0.6; Eosinophils % 0.9; HCT 41.2 % (36.0-46.0); HGB 12.5 g/dL (11.2-15.7); Immature Grans % 0.5; Lymphocytes % 24.9; MCH 24.5 pg (27.0-33.0); MCHC 30.3 % (32.0-36.0); MCV 81 fL (80-95); MPV 9.7 fL (8.0-11.0); Neutrophils % 68.1; WBC 8.16 10^3/uL (4.4-10.8)
[2022-01-07 13:26] LABS: Total Iron Binding Capacity 444 ug/dL (250-450)
[2022-01-07 13:31] LABS: Ferritin 37 ng/mL (8-252)
[2022-01-07 14:02] LABS: Anisocytosis 2+; Diff Comment Diff Reviewed; Platelet Count 226 10^3/uL (130-400)
== END 2022-01-07 05:07 | disposition home or self-care (01) ==
LOC: LOS 05:07
PROVIDERS: PCP Nurse Practitioner Family; Visit Provider Nurse Practitioner Family
DX: R73.03 Prediabetes (principal); D50.9 Iron deficiency anemia, unspecified
CPT/HCPCS: 36415; 82728; 83036; 83550; 85025

== ENCOUNTER → 2022-01-12 08:47 | Outpatient (BNVA) | payer MEDICARE, MEDICAID, SELFPAY | PROVIDERS: PCP Nurse Practitioner Family; Referring Provider Nurse Practitioner Family; Visit Provider Physician Assistant | DX: M25.861 Other specified joint disorders, right knee (principal) ==

== ENCOUNTER → 2022-01-22 08:27 | Outpatient (BNVA) | payer MEDICARE, MEDICAID, SELFPAY | PROVIDERS: PCP Nurse Practitioner Family; Referring Provider Nurse Practitioner Family; Visit Provider Surgery | DX: R10.11 Right upper quadrant pain (principal); R10.13 Epigastric pain; K22.70 Barrett's esophagus without dysplasia; Z12.11 Encounter for screening for malignant neoplasm of colon; Z86.010 Personal history of colon polyps ==

== ENCOUNTER → 2022-01-26 01:06 | Outpatient (CLI) | payer OTHER, SELFPAY ==
--- NOTE | 2022-01-26 12:30 | DI.MRI_ITS ---
Exam(s) MR LUMBAR SPINE WO/W EXAM: MR LUMBAR SPINE WO/W CLINICAL HISTORY: BACK PAIN W/RADICULOPATHY, M54.10, RT L5-S1 DECOMPRESSION. TECHNIQUE: Multiplanar multisequence MRI of the Lumbar spine was performed. Both pre and post contra st infused sequences were performed. Contrast use was 15 mL Dotarem. COMPARISON: MR MR LUMBAR SPINE WO from 04/09/2021 FINDINGS: There has been interval L5-S1 level surgery. Conus medullaris is at normal level. There is no evidence of conus mass nor subjacent clumping of in trathecal nerve roots to suggest arachnoiditis. The distal thecal sac appears unremarkable.There is no evidence of Tarlov intrasacral cysts nor other significant findings within the sacral canal Bones:There are no fractures nor ominous osseous lesions in the lumbar vertebral bodies and visualize d sacrum. No abnormal intraosseous enhancement. With respect to the individual levels... T11-T12: Small disc protrusion again noted but difficult to evaluate as are only sagittal images thro ugh this level. No abnormal enhancement at this level T12-L1: There is a posterior central-right paracentral disc herniation at this level which is unchang ed from the prior MRI study of 04/09/2021. No abnormal enhancement at this level. L1-2: Normal disc height and signal. No disc herniation nor central canal stenosis.No foraminal steno sis. No abnormal enhancement at this level. L2-3: Normal disc height. No disc herniation nor central canal stenosis.No foraminal stenosis.No face t arthropathy.. No abnormal enhancement at this level L3-4: Normal disc height. Mild annular bulging noted. No central canal stenosis. Annular bulging e xtends into the floor of the exiting left neural foramen but there is no significant foraminal stenos is on either side at this level.No foraminal stenosis.No facet arthropathy. No abnormal enhancement at this level. L4-5: Normal disc height. No disc herniation. Central canal dimensions lower normal. No foraminal stenosis. No facet arthropathy. No abnormal enhancement at this level. L5-S1: Partial right laminectomy defect now evident at this level. There is increased signal within the disc space as well as some enhancement in the posterior aspect of the disc space, possibly repres enting element of discitis. Is no loss of the superior and inferior endplates of the contiguous vert ebral bodies and no intraosseous signal to suggest osteomyelitis. There is enhancement along the rig ht paracentral surgical tract and through the right laminectomy defect and into the epidural space. There is suspicion for recurrent disc protrusion at this level. Enhancement is seen related to this which is probably related to inflammation. No evidence of epidural abscess nor paraspinal abscess. Soft tissues: No evidence of paraspinal nor psoas abscess. IMPRESSION: 1. There are postsurgical changes at L5-S1 level including a right L5 laminectomy defect and signific ant enhancement along the surgical tract and right side of the epidural space both anteriorly and pos teriorly. There appears to be either persistent or recurrent disc protrusion at this level, again po sterolateral right. However, surgery was apparently in July 2021 and granulation tissue can result in enhancement with similar appearance. In addition, there is some signal abnormality within the gianna tral-right side of the L5-S1 intervertebral disc which may be related to an element of discitis. The re is no evidence of osteomyelitis. There is no evidence of epidural abscess. 2. Disc protrusions at T11-T12 and T12-L1 are similar to the prior study of 04/09/2021. DATA REPOSITORY:
[2022-01-26 13:24] LABS: CREATININE 0.9 mg/dL (0.55-1.02); Estimated GFR 70.95 (mL/min/1.73m2)
[2022-01-26] MEDS: Normal Saline Flush 10 ML SYR IVP (13:33)
== END ==
PROVIDERS: PCP Nurse Practitioner Family; Visit Provider Neurological Surgery
DX: M51.24 Other intervertebral disc displacement, thoracic region (principal); Z98.890 Other specified postprocedural states
CPT/HCPCS: 72158; 82565

== ENCOUNTER 2022-02-17 06:46 | Day surgery (SDC) | payer MEDICARE, MEDICAID, SELFPAY ==
--- NOTE | 2022-02-17 06:26 | ENDO_ITS ---
Date of service: 02/17/22 Time of Service: 08:26 Endoscopy Report DATE OF PROCEDURE: 02/17/22 PRE-OP DIAGNOSIS: Alford's esophagus, colon cancer screening and hx of polyps POST-OP DIAGNOSIS: same PROCEDURE: 1. EGD with biopsies 2. Colonoscopy with polypectomy SURGEON: Emma Ibrahim ANESTHESIA TYPE: General:No Airway ESTIMATED BLOOD LOSS: 3 PATHOLOGY: other (Bx of duodenum, antrum and GE junction, polyps of ascending, transverse, sigmoid rectum) COMPLICATIONS: None DISPOSITION: same day INDICATIONS: (1) Barretts esophagus: Lynda is back to see me to discuss a repeat upper endoscopy for the diagnosis of Alford's in 2019.? She denies any dysphagia or active symptoms of reflux.? She takes the PPI on a as needed basis only.? She feels like she takes it maybe 5 or 6 times a month.? She uses Tums otherwise intermittently if she has heartburn.? She is not a smoker anymore.? She quit smoking 4 years ago.? We discussed upper endoscopy in detail as well as the risks and benefits and she wished to proceed.? Risks, benefits and complications have been reviewed. Complications include but are not limited to bleeding, pain, perforation, sore throat, aspiration, and adverse reaction to the medications.? Questions were entertained and answered to their satisfaction and they wished to proceed. No guarantees were given or implied. Proceed with EGD under sedation (2) Encounter for colonoscopy due to history of colonic polyp: Lynda has had another episode of anemia which started right after stopping the iron.? She is quite concerned that because she had premalignant polyps 3 years ago that she may have another larger polyp that is bleeding.? I think it is reasonable to do another colonoscopy 3 years after her last one just to make sure that there is no source of the bleeding.? I think it is unlikely that I wi ll find anything due to the fact that I did not find something 3 years ago and she has not had any occult blood or visible blood.? If the colonoscopy and upper endoscopy do not reveal a source of her bleeding then I think we should do a capsule endoscopy.? If that is negative then maybe a hematology consult would be appropriate.? I did discuss with the patient that there are other reasons to be iron deficient.? One of them would be malabsorption, early breakdown of hemoglobin by her spleen or her bone marrow not producing enough hemoglobin to replace what has been broken down.? The procedure was explained in detail as well as the risks and benefits and she wished to proceed.? Risks, benefits and complications have been reviewed. Complications include but are not limited to bleeding, pain, perforation, missed small lesion/polyp, sore throat, aspiration and adverse reaction to the medications. Questions were entertained and answered to their satisfaction and they wished to proceed. No guarantees were given or implied. Proceed with colonoscopy at the time of EGD. PREP: Miralax/Dulcolax PROCEDURE START TIME: : PROCEDURE END TIME: :05 COLONOSCOPY RETRACTION TIME: 26 minutes FINDINGS: inflammation of the duodenum, Hx of Alford's Multiple polyps PROCEDURE DESCRIPTION: After informed consent was obtained the patient was take to the procedure room and placed in a supine position. Monitors were applied and a time out was done. The patients name, date of , procedure type, allergies to medications and metal in their body was reviewed. A bite block was placed and the patient was sedated. Once sedated and comfortable the gastroscope was advanced through the oropharynx which was grossly normal into the esophagus. The proximal and mid- esophagus were normal. In the distal esophagus there was mild inflammation noted. The scope was advanced into the stomach and through the pylorus into the 3rd portion of the duodenum. The duodenum was noted to have some mild inflamma tion. Biopsies were done. The scope was retracted back into the stomach. There was mild inflammation noted in the antrum. Biopsies were done to rule out H. pylori. There were no ulcers. The scope was retro-flexed. The cardia and fundus were noted to be normal. There was no hiatal hernia noted. The scope was retracted back into the esophagus and biopsies were done of the GE junction to rule out Alford's. The Z line was regular. The GE junction was at 35 cm. While the patient was still sedated they were placed in a left decubitous position. A rectal exam was done. External exam was normal. Internal exam revealed a normal sphincter tone and no palpable masses. The scope was then introduced and retro-flexed. No internal hemorrhoids, masses or polyps were identified on retroflexion. The scope was then advanced to the cecum without difficulty. The ileocecal valve and appendiceal orifice were identified. The prep was adequate. The scope was then slowly retracted over 25 minutes back into the rectum. Polyps were removed with cold forceps in the ascending colon x2, transverse colon x2, sigmoid colon x7 and rectum x12. There was no diverticulosis noted. The scope was removed and the patient was woken up and taken back to Same day surgery in stable condition. The patient tolerated the procedure well and there were no immediate complications.
--- NOTE | 2022-02-17 06:28 | PDOC.DSDIS_ITS ---
Discharge Plan Disposition Patient Disposition: HOME Condition: Good Discharge Details Reason For Visit: colo/egd Attending Provider: Emma Ibrahim Primary Care Provider: Samantha Escalante Home Meds and New Rx's Prescriptions: Continued baclofen 5 mg tablet 5 mg PO TID PRN (Reason: back pain) Qty: 90 0RF pantoprazole 20 mg tablet,delayed release (DR/EC) 20 mg PO DAILY PRN (Reason: heartburn) Qty: 90 4RF clotrimazole 1 % cream 1 applic topical BID PRN (Reason: rash) Qty: 45 0RF Rx Instructions: Apply beneath breasts twice a day for 2-4wks and as needed ferrous sulfate 325 mg (65 mg iron) tablet 325 mg PO DAILY multivitamin [Daily Multi-Vitamin] 1 EACH tablet 1 ea PO DAILY albuterol sulfate 90 mcg/actuation HFA aerosol inhaler 2 inh IH Q6H PRN (Reason: shortness of breath or wheezing) Qty: 18 3RF acetaminophen 500 mg tablet 500 mg PO Q6H PRN (Reason: pain) Qty: 60 2RF ibuprofen 600 mg tablet 600 mg PO TID PRN (Reason: pain) Qty: 60 0RF Discontinued polyethylene glycol 3350 17 gram/dose powder 238 g PO ONCE Qty: 238 0RF Rx Instructions: take per colonoscopy instructions bisacodyl [Dulcolax (bisacodyl)] 5 mg tablet,delayed release (DR/EC) 5 mg PO ONCE Qty: 4 0RF Rx Instructions: take per colonoscopy instructions Discharge Instructions Additional Instructions: Findings: Mild inflammation of the esophago-gastric junction numerous polyps Follow up: 3-5 years Please call if you develop: fevers >101.5 Nausea or Vomiting Abdominal pain that is not transient Rectal bleeding that is more then a tbsp A hard abdomen and inability to pass gas DAY SURGERY UNIT POST ENDOSCOPY INSTRUCTIONS Instructions for everyone who is given Anesthesia: For your safety, please do the following for the next 24 Hours: a. Do not drive or operate dangerous equipment b. Do not drink alcohol beverages or use any recreational drugs for the first 24 hours or while taking pain medications. The medications in your body may have a reaction that can be dangerous. c. Do not make any important decisions or sign any important papers 1. Generally there are no restrictions on your activity after a day or so has gone by, but you may feel a bit fatigued for a few days. 2. After you arrive home you may have a light meal and return to a normal diet as you can tolerate it without feeling sick to your stomach. 3. After surgery, you may feel pain or discomfort. This should be only transi ent, but if it persists please contact your doctor. 4. If there are any questions regarding the findings of your procedure, please feel free to contact your doctor. 6. If you are unable to contact your doctor with a problem, contact the hospital at [phone]. 7. Continue all your regular medications unless directed otherwise. I understand the above instructions and have no questions. Signature of Patient or Responsible Adult Escort Date/Time Name of Responsible Adult Escort Signature of Nurse Date/Time Activity:: Activity as Tolerated Diet:: As Tolerated Discharge Orders Discharge Orders: Discharge Order (Routine); Ordered 02/17/22 Ordered By: Emma Ibrahim
--- NOTE | 2022-02-17 06:30 | W.ANESPRE ---
General Info Date of Service Date Performed: 02/17/22 Height: 4 ft 10.5 in Weight: 76.204 kg Body Mass Index (BMI): 34.4 Surgical Procedure: Operation Date: 02/17/22 08:35 Proposed Procedure Side Surgeon p Colonoscopy/Gastroscopy Emma Ibrahim MD Meds Allergies and Home Medications Allergies Allergy/AdvReac Type Severity Reaction Status Date / Time codeine AdvReac Intermediate Skin Rash Verified 02/16/22 11:03 omeprazole AdvReac Intermediate Rash, Verified 02/16/22 11:03 itching all over Penicillins AdvReac Intermediate Skin Rash Verified 02/16/22 11:03 Rvzqtfx-IZJ-CeM Reductase AdvReac Intermediate MUSCLE Verified 02/16/22 11:03 Inhibitor ACHES [Wrvfqly-Rkp-Djr Reductase Inhibitor] esomeprazole AdvReac Mild Pruritus Verified 02/16/22 11:03 pantoprazole AdvReac Mild Pruritus Verified 02/16/22 11:03 metronidazole AdvReac Unknown DIARRHEA Verified 02/16/22 11:03 Home Medication Medication Instructions Recorded multivitamin (Daily Multi-Vitamin 1 ea PO DAILY 09/21/17 tablet) albuterol sulfate 90 mcg/actuation 2 inh inhalation Q6H PRN shortness 07/25/19 aerosol inhaler of breath or wheezing #18 grams baclofen 5 mg tablet 5 mg PO TID PRN back pain #90 tabs 04/06/21 pantoprazole 20 mg tablet,delayed 20 mg PO DAILY PRN heartburn #90 04/06/21 release tabs acetaminophen 500 mg tablet 500 mg PO Q6H PRN pain #60 tabs 01/05/22 ibuprofen 600 mg tablet 600 mg PO TID PRN pain #60 tabs 01/05/22 clotrimazole 1 % topical cream 1 applic topical BID PRN rash #45 01/06/22 grams bisacodyl 5 mg tablet,delayed 5 mg PO ONCE colonscopy bowel prep 01/22/22 release (Dulcolax (bisacodyl)) #4 tabs ferrous sulfate 325 mg (65 mg 325 mg PO DAILY 01/22/22 iron) tablet polyethylene glycol 3350 17 238 g PO ONCE colonoscopy prep 01/22/22 gram/dose oral powder #238 grams Current Visit Medications: Current Medications Generic Name Dose Route Start Last Admin Trade Name Freq PRN Reason Stop Dose Admin Hyoscyamine Sulfate 0.125 mg 02/17/22 06:25 Hyoscyamine 0.125 Mg Sl/Oral/Chew SL DIRECTED PRN Ringer's Solution 1,000 mls @ 80 mls/hr 02/17/22 06:00 IV 03/18/22 23:59 INFUSION ALEXI IV Miscellaneous Supplies 1 each 02/17/22 06:00 Iv Access IV 03/18/22 23:59 DIRECTED ALEXI Ondansetron HCl 4 mg 02/17/22 06:25 Ondansetron 4 Mg/2 Ml Vial IVP Q4H PRN PRN Nausea / Vomiting Sodium Chloride 0 ml 02/17/22 06:00 Normal Saline Flush 10 Ml Syr IV 03/18/22 23:59 PRN PRN Sodium Chloride 0 ml 02/17/22 06:00 Normal Saline 10 Ml Vial IJ 03/18/22 23:59 DIRECTED PRN Sterile Water 0 ml 02/17/22 06:00 Water,Injection,Sterile 10 Ml Vial IJ 03/18/22 23:59 DIRECTED PRN PFSH Active Problems Active Problems: Problem Status Onset Code Pes anserine bursitis M70.50 Hypertriglyceridemia E78.1 Barretts esophagus K22.70 Prediabetes R73.03 Iron deficiency anemia D50.9 Elevated BP without diagnosis of hypertension R03.0 Trigger finger, left ring finger M65.342 Fatty liver disease, nonalcoholic K76.0 Lumbar disc herniation with radiculopathy M51.16 Trochanteric bursitis of right hip M70.61 Mass of joint of right knee M25.861 Calcific tendinitis of right shoulder M75.31 Medical History Medical History Back pain with history of spinal surgery Depressive disorder per pt. states its situational, and is no longer. Serrated adenoma of colon Tubular adenoma of colon Surgical History Surgical History History of section History of discectomy History of esophagogastroduodenoscopy (EGD) (03/27/19) Alford's esophagus. S/P appendectomy S/P cataract surgery S/P colonoscopy (03/27/19) 2016- Sessile serrated adenoma and Tubular adenoma 2019- Hyperplastic polyps x10. S/P laparoscopic hysterectomy Right ovary remains S/P left oophorectomy S/P tonsillectomy and adenoidectomy S/P trigger finger release (09/04/18) Left thumb 09/04/18, right thumb 05/21/19 Tobacco Smoking/Tobacco Use Status: Former Tobacco Use Passive smoking exposure: Yes Second hand exposure: Yes Alcohol Alcohol Intake: never Substance Use Substance use: Never Substance use type: does not use Prental History History 3 Para 3 Hx # Term Pregnancies Multiple births Hx # Pregnancies Ectopic pregnancies AB induced Hx Number of Living Children 3 AB spontaneous Vital Signs and Lab Results Vital Signs Most Recent Vital Signs in EMR: Temp Pulse Resp BP Pulse Ox 36.5 C 81 20 144/88 H 98 02/17/22 07:06 02/17/22 07:06 02/17/22 07:06 02/17/22 07:06 02/17/22 07:06 Lab Results Blood Type / Crossmatch: No Data to Display Complete Blood Count: No Data to Display Complete Metabolic Panel: Creatinine 0.9 mg/dL (0.55-1.02) 01/26/22 13:10 Est GFR (CKD-EPI 2020) 70.95 (mL/min/1.73m2) 01/26/22 13:10 Liver Function Panel: No Data to Display Coagulation Panel: No Data to Display Cardiac Panel: No Data to Display Arterial Blood Gas: No Data to Display Venous Blood Gas: No Data to Display Pancreas Panel: No Data to Display Thyroid Panel: No Data to Display Infectious Disease: No Data to Display Blood Cultures: No Data to Display Toxicology Panel: No Data to Display Imaging and Studies Imaging and Studies Study information below may be from another EMR and interpreted by another provider. Please see original notes in EMR for more complete details. EKG Summary: Conclusion Sinus rhythm...normal P axis, V-rate 60- 99 Ventricular premature complex...V complex w/ short R-R interval 07/08/21 Stress Test Summary: DATE: 05/24/2014: Normal Pulmonary Function Summary: DATE OF SERVICE: April 18, 2019 REQUESTING PROVIDER: Samantha Escalante M.D. Spirometry shows no evidence of obstructive airways disease, no bronchodilator response. Lung volumes show no evidence of restriction. Diffusion capacity normal. Airways resistance normal. IMPRESSION: Normal pulmonary function study. Clinical correlation recommended. Anesthesia Assessment and Plan Anesthesia History Personal History: No History of Anesthesia Complications Family History: No Family History of Anesthesia Complications Exercise Tolerance Exercise Tolerance: Metabolic Equivalents>4 Pertinent Negatives Pertinent Negatives: No Symptoms of GERD Cardiac & Pulmonary Exam Cardiac Exam: Normal S1/S2 Heart Sounds Pulmonary Exam: Clear Bilateral Breath Sounds Implantable Cardiac Device Does patient have a Pacemaker or an ICD?: No Airway Exam Known Difficult Airway: No Mallampati Class: 2 Mouth Opening: Normal (> 3cm) Thyromental Distance: Greater than 3 cm Neck Range of Motion: Full ROM Neck Circumference: Normal Teeth Condition: Removable Dentures/Plates Upper (Removable uppers, fixed lower dentures) ASA Classification ASA Score: ASA 2 Emergency Case?: No NPO Status NPO Status: NPO Clears >2 hours, Solids >8 hours Anesthesia Plan Resuscitation Status: Full Code Anesthesia Technique: General Anesthesia Airway Planned: Natural Airway Monitors Used: Standard Monitors
[2022-02-17 07:06] VITALS: BP 144/88; PULSE 81; RESP 20; TEMP 36.5; O2SAT 98
[2022-02-17] MEDS: Lactated Ringers 1,000 ML 80 ML IV (07:39)
[2022-02-17 08:11] VITALS: BMI 34.4
--- NOTE | 2022-02-17 08:28 | BOWEL_PTH ---
PATIENT: Lynda Pedersen LOC: [facility] U#:[id number] AGE/SX: 66/F ROOM: RE02/17/[address]: Emma Ibrahim MD : [id number] BED: DIS: 02/17/2022 SPEC #: [id number] RECD: 02/17/22 12:31 STATUS: ANGELA REJesus #: [id number] MULUGETA: 02/17/22 08:[address]: Emma Ibrahim DEPT: Surgical Specimen RECD BY: Caprice Nguyen ENTERED: 02/17/22 12:34 SP TYPE: Bowel OTHR DR: Samantha Escalante, [employer] MANAGER Tissues: 1 - BIOPSY BOWEL 2 - STOMACH BIOPSY 3 - ESOPHAGUS BIOPSY 4 - BIOPSY BOWEL 5 - BIOPSY BOWEL 6 - BIOPSY BOWEL 7 - BIOPSY BOWEL Procedures: GROSS AND MICRO LEVEL 4 IMMUNOPEROXIDASE STAIN Comments: [id number]
[2022-02-17 09:17] VITALS: BP 101/70; PULSE 88; RESP 20; TEMP 36.1; O2SAT 88
[2022-02-17 09:45] VITALS: BP 137/77; PULSE 78; RESP 22; TEMP 36.5; O2SAT 93
[2022-02-17] MEDS: Albuterol/Ipratropium 3 ML UPD VIAL UPD (09:57)
--- NOTE | 2022-02-17 10:10 | W.ANESPOSTOP ---
Postoperative Evaluation Date, Time and Location Date Performed: 02/17/22 Time Performed: 10:11 Patient Location: Day Surgery Unit Vital Signs Most Recent Imported Vital Signs: Most Recent Vital Signs Temp Pulse Resp BP Pulse Ox 36.1 C L 88 20 101/70 88 L 02/17/22 09:17 02/17/22 09:17 02/17/22 09:17 02/17/22 09:17 02/17/22 09:17 Pain Score Most Recent Pain Score: Most Recent Pain Score Pain Level 0 02/17/22 07:06 Assessment Mental Status: Awake (Alert & Oriented to Patient Baseline) Airway and Respiratory Function: Patent airway with normal (patient baseline) respiratory exam Cardiovascular Function: Hemodynamically Stable Hydration Status: Adequately Hydrated Nausea & Vomiting: No Nausea or Vomiting Pain: Pt. Denies Any Pain Peripheral Nerve Block: Patient did not receive a nerve block Postoperative Comments:: Pt. states she is wheezy almost everyday and has to take multiple breaks when walking around. After colonoscopy, her SpO2 was in mid to high 80's and wheezy. She was given duoneb with good results. I recommend to her and her family that she see her PCP and likely have a referral to see pulmonology to have this worked up for better control.
[2022-02-17 10:17] VITALS: BP 139/70; PULSE 76; RESP 22; TEMP 36.5; O2SAT 97
[2022-02-17 10:50] VITALS: PULSE 98; RESP 28; O2SAT 98
== END 2022-02-17 11:00 | disposition home or self-care (01) ==
PROVIDERS: PCP Nurse Practitioner Family; Visit Provider Surgery
PROC: (CPT 43239; principal; 2022-02-17 08:30)
DX: K22.70 Barrett's esophagus without dysplasia (principal); Z12.11 Encounter for screening for malignant neoplasm of colon; K63.5 Polyp of colon; Z86.010 Personal history of colon polyps; K29.70 Gastritis, unspecified, without bleeding; K29.80 Duodenitis without bleeding; K62.1 Rectal polyp; B96.81 Helicobacter pylori [H. pylori] as the cause of diseases classified elsewhere
CPT/HCPCS: 43239; 45380; 88305; 88361; J7620

== ENCOUNTER 2022-02-25 04:06 | Outpatient (CLI) | payer MEDICARE, MEDICAID, SELFPAY ==
--- NOTE | 2022-02-25 10:00 | RT.PFT_ITS ---
The report has been sent as a scanned image. This report serves to complete the order.
[2022-02-25] MEDS: Inhaler, Assist Device 1 EACH MC (11:12)
[2022-02-25] MEDS: Albuterol HFA 18 GM 200 PUFF INH IH (11:12)
--- NOTE | 2022-02-26 10:39 | W.PFT ---
Date of service: 02/25/22 Time of Service: 10:04 Pulmonary Function Test Result Requesting Provider Samantha Escalante Indications: Dyspnea Interpretation Spirometry: There is no airflow limitation. There is no significant bronchodilator response. Lung Volumes: There may be mild hyperinflation. Diffusion Capacity: Normal diffusion Airway Pressure: Normal airways resistance Impression There is mild hyperinflation, which could be present in obstructive disease, such as asthma. Otherwise, normal pulmonary function testing. Note: When compareed to 04/18/19, PFT's are stable. Clinical Correlation therefore is recommended.
== END 2022-02-25 04:07 | disposition home or self-care (01) ==
LOC: RT 04:07
PROVIDERS: PCP Nurse Practitioner Family; Visit Provider Nurse Practitioner Family
DX: R06.09 Other forms of dyspnea (principal); Z87.891 Personal history of nicotine dependence
CPT/HCPCS: 94060; 94726; 94729

== ENCOUNTER → 2022-02-26 00:48 | Outpatient (CLI) | payer MEDICARE, MEDICAID, SELFPAY ==
--- NOTE | 2022-02-26 07:00 | DI.RAD_ITS ---
Exam(s) XR CHEST 2V PA LATERAL EXAM: XR CHEST 2V PA LATERAL CLINICAL HISTORY: SOB,r06.02. TECHNIQUE: 2D digital imaging was performed. COMPARISON: CR XR CHEST 2V PA LATERAL from 09/14/2019 FINDINGS: 2 views: Heart size is normal. The mediastinum is not widened. Lungs are clear. No infiltrates nor pleural effusions. IMPRESSION: No acute pulmonary findings. DATA REPOSITORY: RADIATION DOSE DELIVERED:
== END ==
PROVIDERS: PCP Nurse Practitioner Family; Visit Provider Nurse Practitioner Family
DX: R06.02 Shortness of breath (principal)
CPT/HCPCS: 71046

== ENCOUNTER → 2022-03-09 13:25 | Outpatient (BNVA) | payer MEDICARE, MEDICAID, SELFPAY | PROVIDERS: PCP Nurse Practitioner Family; Referring Provider Nurse Practitioner Family; Visit Provider Surgery | DX: K22.70 Barrett's esophagus without dysplasia (principal); A04.8 Other specified bacterial intestinal infections; D12.6 Benign neoplasm of colon, unspecified | CPT/HCPCS: 99212; 99213 ==

== ENCOUNTER → 2022-03-23 02:40 | Outpatient (CLI) | payer MEDICARE, MEDICAID, SELFPAY ==
--- NOTE | 2022-03-23 07:00 | DI.NM_ITS ---
APPROVED REPORT Exam: Exercise Treadmill Patient Location: Out-Patient Room/Bed: Stress Nurse: Imani Campbell RN Ordering Provider:MAURICE SANDRAROSALINDA, Contact Number: [phone] BMI: 34.69 Baseline Rhythm: Sinus Rhythm Indications: RYDER, CAD Medical History Medical History: Former tobacco abuse, Hypertriglyceridemia, Barretts esophagus, Prediabetes, Fatty l iver disease, Iron deficiency anemia, Calcification of coronary artery on CT Cardiac Medications: Pantoprazole, Levalbuterol tartrate inhaler, Famotidine, Ferrous sulfate, Allergies: Statins, esomeprazole, pantoprazole, codeine, moeprazole, penicillins, metronidazole Cardiac Risk Factors: Hyperlipidemia, DM, FHX of CAD, Smoking (former) , Asthma Previous Cardiac Procedures: None Pretest Chest Pain Characteristics: No chest pain Exercise History: Indeterminate Physical Disabilities: None Lung Sounds: Clear to auscultation Heart Sounds: Regular Stress Test Details Test: Exercise stress testing was performed using a Jacky protocol. Nuclear Acquisition: Rest Tc-99m/Stress Tc-99m 1 day Rest Isotope: Tc-99m Sestamibi. Dose: 10.0 Date: 03/23/2022 Injection Time: 0915 Stress Isotope: Tc-99m Sestamibi. Dose: 31.0 Date: 03/23/2022 Injection Time: 1112 HR Resting HR Supine: 61 bpm Max Heart Rate (APMHR): 155.026105 bpm Resting HR Standin bpm Target HR (85% APMHR): 131.234018 bpm Max HR Achieved: 146 bpm % of APMHR: 94.19 Recovery HR: 66 bpm HR response to stress: Normal HR response to stress BP Resting BP Supine: 152/84 mmHg Resting BP Standin/74 mmHg Max BP: 190/68 mmHg Recovery BP: 132/82 mmHg BP response to stress: Normal blood pressure response to stress. ECG Resting ECG: Sinus Rhythm Ectopy: None Stress ECG: Sinus Tachycardia ST Change: No significant ST segment changes noted Arrhythmia: PACs Recovery ECG: Sinus Rhythm Recovery ST Change: No significant ST segment changes noted Recovery Arrhythmia: PACs Clinical Reason for Termination: Dyspnea Stress Symptoms: Dyspnea Exercise duration: 5 min15 sec Highest Stage Reached: Stage 2: 2.5 mph at 12% grade. Exercise capacity: 7.05 METs Tim Treadmill Score: 3 Rate Pressure Product: 24597 Stress ECG Conclusion 1. Resting electrocardiogram showed voltage for left ventricular hypertrophy 2. Patient exercised on the Jacky protocol and completed a workload of 7.05 METS limited by dyspnea 3. Normal heart rate and blood pressure response to exercise. Patient achieved 94% of predicted hear t rate for age 4. There was no electrocardiographic evidence of myocardial ischemia 5. See MPI report Tim Treadmill Score is 3 which is Moderate risk. Stress Test Summary STAGE Time (mins) Speed (mph) Grade (%) HR BP SpO2 SYMPTOMS METS Supine 61 152/84 Standing 64 144/74 97 1 3 1.7 10 104 158/80 95 4.5 1 min recovery 113 190/68 96 3 min recovery 71 178/82 6 min recovery 66 132/82 MPI Conclusion Normal myocardial perfusion, no ischemia or prior infarction EF 65%, normal wall motion Radiologist Interpretation Radiologist agrees with Barrel Header's Interpretation. Radiologist Interpretation by: Emily Rodríguez MD Interpretation Date/Time: 03/24/2022 16:44:28
== END ==
PROVIDERS: PCP Nurse Practitioner Family; Visit Provider Nurse Practitioner Family
DX: I25.10 Atherosclerotic heart disease of native coronary artery without angina pectoris (principal); I25.84 Coronary atherosclerosis due to calcified coronary lesion
CPT/HCPCS: 78452; 93016; 93018; 93017

== ENCOUNTER 2022-04-05 03:23 | Outpatient (CLI) | payer MEDICARE, MEDICAID, SELFPAY ==
[2022-04-05] MEDS: Albuterol HFA 18 GM 200 PUFF INH IH (11:17)
[2022-04-05] MEDS: Methacholine 100 MG VIAL IH (11:17)
[2022-04-05] MEDS: Inhaler, Assist Device 1 EACH MC (11:18)
--- NOTE | 2022-04-06 08:55 | W.PFT ---
Date of service: 04/05/22 Time of Service: 10:03 Pulmonary Function Test Result Requesting Provider Annette Indications: Dyspnea Interpretation Spirometry: There is no chronic airflow limitation. There was a 28% decrease in FEV1% with administration of 4.0mg/mL methacholine. Impression Positive methacholine challenge. Clinical Correlation therefore is recommended.
== END 2022-04-05 03:24 | disposition home or self-care (01) ==
LOC: RT 03:23
PROVIDERS: PCP Nurse Practitioner Family; Visit Provider Student in an Organized Health Care Education/Training Program
DX: R06.02 Shortness of breath (principal); Z87.891 Personal history of nicotine dependence; R06.09 Other forms of dyspnea
CPT/HCPCS: 94060; 94070; J7674

== ENCOUNTER 2022-04-07 23:29 | Outpatient (REF) | payer MEDICARE, MEDICAID, SELFPAY | END 2022-04-07 23:30 | disposition home or self-care (01) | LOC: LBN 23:29 | PROVIDERS: PCP Nurse Practitioner Family; Visit Provider Nurse Practitioner Family | DX: N76.0 Acute vaginitis (principal) | CPT/HCPCS: 87480; 87510; 87660 ==

== ENCOUNTER → 2022-04-08 11:33 | Outpatient (BNVA) | payer MEDICARE, MEDICAID, SELFPAY | PROVIDERS: PCP Nurse Practitioner Family; Referring Provider Nurse Practitioner Family; Visit Provider Student in an Organized Health Care Education/Training Program | DX: M75.31 Calcific tendinitis of right shoulder (principal) | CPT/HCPCS: 20610; J1040 ==

== ENCOUNTER → 2022-04-15 01:10 | Outpatient (CLI) | payer MEDICARE, MEDICAID, SELFPAY ==
--- NOTE | 2022-04-15 07:30 | DI.US_ITS ---
Exam(s) US PELVIS TRANSVAGINAL EXAM: US PELVIS TRANSVAGINAL CLINICAL HISTORY: suspected Right ovarian cyst on MRI,n83.201. TECHNIQUE: Transabdominal and transvaginal pelvic ultrasound was performed using standard protocol. COMPARISON: MR MR LUMBAR SPINE WO/W from 01/26/2022 FINDINGS: UTERUS: Status post hysterectomy. OVARIES: Status post left oophorectomy. Right: 9 x 7.5 x 7.8 cm Cyst or mass: There is a complex multi-septated left ovarian cyst. This corresponds to the finding s een on the MRI of the lumbar spine from 01/26/2022. DOPPLER: Color: Symmetric and uniform flow to both ovaries. CUL-DE-SAC: Free fluid: None. Other: None. IMPRESSION: 1. Status post hysterectomy and left oophorectomy. 2. Complex 9 cm multi septated right adnexal cyst. This is likely ovarian in origin. It does corres pond to the finding seen on the MRI of the lumbar spine from 01/26/2022. Malignancy cannot be exclude d. Gynecologic consult is recommended. DATA REPOSITORY:
== END ==
PROVIDERS: PCP Nurse Practitioner Family; Visit Provider Nurse Practitioner Family
DX: N83.201 Unspecified ovarian cyst, right side (principal)
CPT/HCPCS: 76830; 76856

== ENCOUNTER 2022-04-15 13:36 | Outpatient (REF) | payer MEDICARE, MEDICAID, SELFPAY ==
[2022-04-19 15:12] LABS: Helicobacter pylori Ag, Feces Negative (Negative)
== END 2022-04-15 13:37 | disposition home or self-care (01) ==
LOC: LBN 13:36
PROVIDERS: PCP Nurse Practitioner Family; Visit Provider Surgery
DX: K22.70 Barrett's esophagus without dysplasia (principal); A04.8 Other specified bacterial intestinal infections
CPT/HCPCS: 87338

== ENCOUNTER 2022-04-28 01:10 | Outpatient (CLI) | payer MEDICARE, MEDICAID, SELFPAY ==
--- NOTE | 2022-04-28 10:29 | DI.US_ITS ---
APPROVED REPORT EXAM: Comprehensive 2D, Doppler, and color-flow Echocardiogram Patient Location: Out-Patient [employer] Specialist: Mallika Muller RDCS (AE) Indications: SOB, Known LAD, Left circumflex artery calcification Other Information Study Quality: Adequate Conclusion Normal left ventricular wall thickness and chamber size. Estimated ejection fraction is 60%. Wall m otion is normal Normal right ventricular size and systolic function Both atria are normal in size There are no significant structural valvular abnormalities There is trace to mild mitral regurgitation There is mild tricuspid regurgitation. Estimated right ventricular systolic pressure is 28 mmHg Wall motion Left Ventricle The left ventricle is normal size. The left ventricular systolic function is normal. The left ventric ular ejection fraction is within the normal range. There is normal left ventricular wall thickness. T here is normal LV segmental wall motion. There is no ventricular septal defect visualized. LVEF is 60 %. Right Ventricle The right ventricle is normal size. The right ventricular systolic function is normal. The RVSP is 28 .1mmHg. Atria The left atrium size is normal. The right atrium size is normal. The interatrial septum is intact wit h no evidence for an atrial septal defect. Aortic Valve The aortic valve is normal in structure. Aortic valve is trileaflet. There is no aortic valvular sten osis. No aortic regurgitation is present. Mitral Valve The mitral valve is normal in structure. No evidence of mitral valve stenosis. Trace to mild mitral r egurgitation. Tricuspid Valve The tricuspid valve is normal in structure. There is no tricuspid valve stenosis. Mild tricuspid regu rgitation. Pulmonic Valve The pulmonary valve is normal in structure. There is no pulmonic valvular stenosis. Trace pulmonic re gurgitation. Great Vessels The aortic root is normal in size. The ascending aorta is normal in size. Aortic arch is normal in ca liber. IVC is normal in size and collapses >50% with inspiration. Pericardium There is no pericardial effusion. 2D Dimensions IVSD d PLAX 0.83 cm F: 0.6-1.0 LV Vol A2C d MOD 77.3 mL LVPW d PLAX 0.79 cm F: 0.6 - 1.0 LV Vol A4C d MOD 77.2 mL LVID d PLAX 4.26 cm F: 3.8 - 5.2 LA vol/ BSA A2C s A-L 15.9 mL/m2 LVDs 2.90 cm F: 2.2 - 3.5 LA vol/ BSA A4C s A-L 17.6 mL/m2 Ao Root d 2.55 cm F: 2.7 - 3.3 LA Vol/ BSA Biplane s A-L 17.3 mL/m2 RA Area A4C 7.64 cm2 LA Area A4C s MOD 12.64 cm2 RA Vol/ BSA A4C s A-L 8.7 mL/m2 LA Area A2C s MOD 11.65 cm2 Ao Asc Diam d 3.02 cm F: 2.3 - 3.1 LV EF A4C MOD 60.4 % LV EF Teichholz 60.0 % LV EF A2C MOD 58.4 % LVEF (Guzmán's) 60.16 % F: 54 - 74 LV EF Biplane MOD 60.2 % LV Volume 63.21 mL F: 46 - 106 SV 47.66 mL LV Volume Index 37.62 mL/m2 F: 29 - 61 SV Index 28.40 mL/m2 LV Vol Biplane MOD 79.2 mL FS 31.60 % M-Mode TAPSE 2.17 cm (M/F) >1.7 LV Diastology MV E' medial 0.072 (>0.07 m/s) E/A Ratio 0.7 LV E/e MED 10.15 (<14) MV E Vmax 0.73 (0.4-1.3 m/s) MV E' lateral 0.086 (>0.1 m/s) MV A Vmax 1.05 (0.4-1.3 m/s) LV E/e LAT 8.55 (<14) MV E/A Ratio 0.67 MV E/E' medial 10.17 MV E/E' lateral 8.57 Aortic Valve LVOT Area 3.09 cm2 AoV Area Vmax 2.45 cm2 LVOT Vmax 0.98 m/s AoV Area/ BSA (Vmax) 1.46 cm2/m2 LVOT Mean Mikie. 0.64 m/s ORAL Mean Mikie. 2.38 cm2 LVOT Peak Grad 3.8 mmHg ORAL Mean Mikie. Index 1.42 cm2/m2 LVOT Mean Grad 1.9 mmHg LVOT VTI 0.201 m LVOT Diam s 1.95 cm AoV Vmax 1.23 m/s Velocity Ratio 0.80 AoV Mean Mikie. 0.83 m/s AoV Peak Grad 6.1 mmHg LVOT SV 62.24 mL AoV Mean Grad 3.1 mmHg AoV VTI 0.235 m AoV Area VTI 2.65 cm2 AoV Area/ BSA (VTI) 1.58 cm/m2 Mitral Valve MV DT 254 (160-240 msec) MV PHT 74 msec MV Area PHT 2.98 cm2 MV VTI 0.305 m MV Area VTI 2.04 (4.0-6.0 cm2) Pulmonary Valve PV Vmax 0.89 (0.5-1.5 m/s) RVOT Peak Gr. 1.93 mmHg PV Peak Grad 3.1 mmHg RVOT Mean Gr. 1.00 mmHg PV Mean Grad 1.8 mmHg RVOT VTI 0.136 m PV VTI 0.168 m RVOT Vmax 0.69 m/s Tricuspid Valve TR Peak Grad 25.1 mmHg TR Vmax 2.51 m/s RA Pressure 3.00 mmHg RVSP (TR) 28.1 mmHg
== END 2022-04-28 01:30 ==
LOC: DI 01:10
PROVIDERS: PCP Nurse Practitioner Family; Visit Provider Nurse Practitioner Family
DX: I25.10 Atherosclerotic heart disease of native coronary artery without angina pectoris (principal); I25.84 Coronary atherosclerosis due to calcified coronary lesion; R06.02 Shortness of breath
CPT/HCPCS: 93306

== ENCOUNTER → 2022-04-29 01:19 | Outpatient (CLI) | payer MEDICARE, MEDICAID, SELFPAY ==
--- NOTE | 2022-04-29 08:00 | DI.CTLCSR_ITS ---
Exam(s) CT CHEST LUNG CANCER SCREEN EXAM: CT CHEST LUNG CANCER SCREEN CLINICAL HISTORY: Screening for lung cancer,FORMER SMOKER, Z87.891 TECHNIQUE: Imaging Protocol: Axial computed tomography images with coronal and sagittal reformatted images were created and reviewed. Low dose screening protocol. COMPARISON: CT CT CHEST LUNG CANCER SCREEN from 04/28/2021 FINDINGS: Tracheobronchial tree: No bronchiectasis or mucus plugging.. Mediastinum and Bea: No dominant adenopathy or fluid collection. Pulmonary parenchyma: No consolidation or dominant measurable mass. Mild emphysematous changes. Lung Nodules: Multiple tiny calcified granulomas. Pleura: No effusion. No pneumothorax. Heart: The heart is not dilated. coronary artery calcifications are seen. Aorta: Thoracic aorta non-dilated. Atherosclerotic changes. Upper abdomen: Enlarged liver with mild steatosis. Bones: Unremarkable for age. Soft Tissues: Unremarkable. IMPRESSION: No suspicious pulmonary nodules. Lung RADS Cat 2 - Benign Appearance / Behavior: Nodules with a very low likelihood of becoming a clin ically active cancer due to size or lack of growth Lung-RADS 1.0 CATEGORIES: Category 0 - Prior chest CT exam(s) being located for comparison. Category 1 - Annual screening in 12 months. No nodules or definitely benign nodules. Category 2 - Annual screening in 12 months. Benign appearance. Nodules with low likelihood of becomin g active cancer. Category 3 - 6-month follow-up. Probably benign. Short-term follow-up suggested. Nodules with low lik elihood of becoming active cancer. Category 4A - 3-month follow-up and CT/PET if >8 mm in size. Suspicious finding. Findings which requi re additional testing. Category 4B - Findings which require additional testing and tissue sampling. Category 4X - Category 3 or 4 nodules with additional features or imaging findings that increases the suspicion of malignancy. Modifier S- Potentially clinically significant findings (non lung cancer) RADIATION DOSE DELIVERED: 72.96mGy.cm Total DLP DATA REPOSITORY: All CT scans at this facility are submitted to the National Radiology Data Registry (NRDR) Dose Index Registry (DIR) with the [employer] (ACR). RADIATION OPTIMIZATION: All CT scans at this facility use at least one of these dose optimization te chniques: automated exposure control; mA and/or kV adjustment per patient size (includes targeted exa ms where dose is matched to clinical indication); or iterative reconstruction.
== END ==
PROVIDERS: PCP Nurse Practitioner Family; Visit Provider Student in an Organized Health Care Education/Training Program
DX: Z87.891 Personal history of nicotine dependence (principal); Z12.2 Encounter for screening for malignant neoplasm of respiratory organs
CPT/HCPCS: 71271

== ENCOUNTER 2022-07-16 00:47 | Outpatient (CLI) | payer MEDICARE, MEDICAID, SELFPAY ==
--- NOTE | 2022-07-16 06:30 | DI.DEXA_ITS ---
Exam(s) XR DEXA BONE DENSITY W/WO PB EXAM: XR DEXA BONE DENSITY W/WO PB CLINICAL HISTORY: SCREENING FOR OSTEOPOROSIS IN POSTMENOPAUSAL WOMAN,Z78.0 TECHNIQUE: COMPARISON: No exams were available for comparison FINDINGS: Lateral Spine Image: Unremarkable. No compression deformities identified. Left hip: Total T-Score: -1.7 Total Z-Score: -0.4 T- and Z-scores: Findings are consistent with osteopenia. Lumbar Spine: Total T-Score: -1.3 Total Z-Score: 0.5 T- and Z-scores: Findings are consistent with osteopenia. IMPRESSION: No evidence of osteoporosis.
--- NOTE | 2022-07-16 06:30 | DI.MAMMO_ITS ---
Exam(s) MAMMO SCREENING EXAM: MAMMO SCREENING CLINICAL HISTORY: screening,Z12.39 TECHNIQUE: Bilateral full field digital CC and MLO mammographic images were obtained with 3D tomosyn thesis and utilizing computer aided detection (CAD). COMPARISON: Available for comparison. FINDINGS: Masses/Architectural Distortion: There are stable nodules in the breasts. No suspicious nodules or a reas of architectural distortion are seen. Microcalcifications: No suspicious pleomorphic-type are seen. Skin Thickening/Nipple Retraction: None. IMPRESSION: 1. No significant interval change with no specific features of malignancy noted. 2. Unless there is more urgent need, screening mammography is recommended, as per [place] [employer] guidelines. BI-RADS Category 2 - Benign Findings Breast Density - Category B - Scattered areas of fibroglandular density Breast density category C or D implies that the patient has dense breast tissue. Dense breast tissue is very common and is not abnormal but dense breast tissue can make it harder to find cancer on a ma mmogram. Also, dense breast tissue may increase their breast cancer risk. This information about the result of the mammogram report was provided to the patient to raise their awareness. Use this report when you speak with the patient about their risks for breast cancer, which includes their family hist ory. At that time, you may recommend for more screening tests (Ultrasound or MRI) as they might be us eful based on their risk. A negative radiographic report should not delay biopsy if a dominant or clinically suspicious mass is present. Up to ten percent of cancers are not identified on mammography. A negative report may reinforce clinical impression. Adenosis and dense breasts may obscure an underlying neoplasm. False positive reports average 6 to 10%. Patient will receive a letter notifying them of these results.
== END 2022-07-16 01:07 ==
LOC: DI 00:48
PROVIDERS: PCP Nurse Practitioner Family; Visit Provider Nurse Practitioner Family
DX: Z12.31 Encounter for screening mammogram for malignant neoplasm of breast (principal); Z78.0 Asymptomatic menopausal state; R92.8 Other abnormal and inconclusive findings on diagnostic imaging of breast; Z13.820 Encounter for screening for osteoporosis
CPT/HCPCS: 77063; 77067; 77080

== ENCOUNTER 2022-10-21 14:44 | Outpatient (CLI) | payer OTHER, MEDICARE, MEDICAID, SELFPAY ==
--- NOTE | 2022-10-21 14:30 | RT.EKG_ITS ---
APPROVED REPORT Exam: Resting ECG Reason for Exam: preop Patient Location: O HR:79 bpm ECG Measurements Heart Rate 79 AXIS IL 130 P 47 QRSd 79 QRS 48 QT 411 T 61 QTc 472 Conclusion Sinus rhythm...normal P axis, V-rate 50- 99 RSR' in V1 or V2, probably normal variant...small R' only Normal Electrocardiogram
== END 2022-10-21 14:45 | disposition home or self-care (01) ==
LOC: DI.CM 14:45
PROVIDERS: PCP Nurse Practitioner Family; Visit Provider Nurse Practitioner Family
DX: Z01.818 Encounter for other preprocedural examination (principal)
CPT/HCPCS: 93010

== ENCOUNTER 2022-11-05 01:17 | Outpatient (CLI) | payer MEDICARE, MEDICAID, SELFPAY ==
[2022-11-05 12:26] LABS: Abs Immature Grans 0.02 10^3/uL (0.0-0.06); Absolute Basophil Count 0.04 10^3/uL (0.0-0.2); Absolute Eosinophil Count 0.08 10^3/uL (0.0-0.7); Absolute Lymphocyte Count 2.04 10^3/uL (1.2-3.4); Absolute Monocyte Count 0.49 10^3/uL (0.1-0.8); Basophils % 0.8; Eosinophils % 1.6; HCT 41.9 % (36.0-46.0); HGB 13.1 g/dL (11.2-15.7); Immature Grans % 0.4; Lymphocytes % 40.2; MCH 27.1 pg (27.0-33.0); MCHC 31.3 % (32.0-36.0); MCV 87 fL (80-95); MPV 9.7 fL (8.0-11.0); Monocytes % 9.7; Neutrophils % 47.3; Platelet Count 235 10^3/uL (130-400); RBC 4.83 10^6/uL (3.93-5.22); RDW 14.1 % (11.7-14.6); RDW-SD 44.8 fL; WBC 5.07 10^3/uL (4.4-10.8)
[2022-11-05 12:27] LABS: Bilirubin Negative (Negative); Blood Trace-lysed (Negative); Clarity Clear (Clear); Glucose 100 mg/dL (Negative); Ketones Negative (Negative); Leukocyte Esterase Negative (Negative); Nitrite Negative (Negative); Urobilinogen 0.2 mg/dL (Up to 0.2)
[2022-11-05 12:39] LABS: Bacteria Few HPF (Negative); C & S Indicated? Yes; Crystals Negative HPF (Negative); Epithelial Cells Few HPF (Negative); Mucus Negative (Negative); RBC 0-2 HPF (0-2); WBC 0-2 HPF (0-5)
[2022-11-05 12:59] LABS: ALT 63 U/L (14-59); AST 47 U/L (15-37); Albumin 3.9 g/dL (3.4-5.0); Alkaline Phosphatase 70 U/L (46-116); Anion Gap 9.3 mmol/L (3-11); BUN 11 mg/dL (7-18); Bilirubin, Total 0.4 mg/dL (0.2-1.0); CO2 26.7 mmol/L (21.0-32.0); CREATININE 0.8 mg/dL (0.55-1.02); Chloride 102 mmol/L (98-107); Estimated GFR 81.72 (mL/min/1.73m2); Glucose 151 mg/dL (74-106); Potassium 3.9 mmol/L (3.5-5.1); Sodium 138 mmol/L (136-145); Total Protein 7.7 g/dL (6.4-8.2)
== END 2022-11-05 01:18 | disposition home or self-care (01) ==
LOC: LOS 01:17
PROVIDERS: PCP Nurse Practitioner Family; Visit Provider Nurse Practitioner Family
DX: R35.0 Frequency of micturition (principal); R73.03 Prediabetes
CPT/HCPCS: 36415; 80053; 81003; 81015; 85025; 87086

== ENCOUNTER 2023-03-10 15:31 | Outpatient (REF) | payer MEDICARE, MEDICAID, SELFPAY | END 2023-03-10 15:32 | disposition home or self-care (01) | LOC: LBN 15:31 | PROVIDERS: PCP Nurse Practitioner Family; Visit Provider Nurse Practitioner Family | DX: L98.9 Disorder of the skin and subcutaneous tissue, unspecified (principal) | CPT/HCPCS: 87070; 87205 ==

== ENCOUNTER → 2023-03-16 00:26 | Outpatient (CLI) | payer MEDICARE, MEDICAID, SELFPAY ==
--- NOTE | 2023-03-16 | DI.US_ITS ---
Exam(s) US BREAST LT COMPLETE MAMMO DIAGNOSTIC BI EXAM: MAMMO DIAGNOSTIC BI and U/S breast LT complete CLINICAL HISTORY: painful breasts, mastodynia,n64.4. TECHNIQUE: Craniocaudal and mediolateral oblique Full Field Digital Mammography views of the bilater al breast with Computer Aided Diagnosis followed by Tomosynthesis and left breast ultrasound. COMPARISON: Comparison is mild with prior examinations. FINDINGS: Mammography/Tomosynthesis: Masses/Architectural Distortion: There are stable bilateral breast nodules. There is a small nodule in the posterior central left breast which appears stable in contains internal calcifications. Microcalcifictions: No suspicious pleomorphic-type are seen. Skin Thickening/Nipple Retraction: None. Complete left breast US: Echotexture: Normal appearance of the glandular tissue. Shadowing: No suspicious foci. Cyst: None. Solid lesions: None seen. Ductal dilation: There is a dilated duct in the left breast with some internal debris. IMPRESSION: 1. No definite evidence of malignancy is noted. 2. Unless there is more urgent need, follow-up screening mammography is recommended, as per [employer] guidelines. 3. The findings were discussed with the patient on the date of the examination. BI-RADS Category 2 - Benign Findings Breast Density - Category B - Scattered areas of fibroglandular density Breast density Category C or D implies that the patient has dense breast tissue. Dense breast tissue can make it harder to find cancer on a mammogram. Dense breast tissue is also associated with an incr eased risk of breast cancer. This information about the result of the mammogram report was provided to the patient to raise their awareness. Use this report when you speak with the patient about their risks for breast cancer, which includes their family history. At that time, you may recommend additional screening tests (Ultrasoun d or MRI) as these tests may add significant information. A negative radiographic report should not delay biopsy if a dominant or clinically suspicious mass is present. Up to ten percent of cancers are not identified on mammography. A negative report may reinforce clinical impression. Adenosis and dense breasts may obscure an underlying neoplasm. False positive reports average 6 to 10%. Patient will receive a letter notifying them of these results.
== END ==
PROVIDERS: PCP Nurse Practitioner Family; Visit Provider Nurse Practitioner Family
DX: N64.4 Mastodynia (principal); Z12.31 Encounter for screening mammogram for malignant neoplasm of breast
CPT/HCPCS: 76642; 77062; 77066; G0279

== ENCOUNTER 2023-04-08 18:40 | Outpatient (CLI) | payer MEDICARE, MEDICAID, SELFPAY ==
[2023-04-08 15:07] LABS: Ferritin 12 ng/mL (8-252); TSH (W/Ref FT4) 3.34 uIU/mL (0.36-3.74)
== END 2023-04-08 18:41 | disposition home or self-care (01) ==
LOC: LBO 18:41
PROVIDERS: PCP Nurse Practitioner Family; Visit Provider Nurse Practitioner
DX: G47.33 Obstructive sleep apnea (adult) (pediatric) (principal); G47.61 Periodic limb movement disorder; R63.5 Abnormal weight gain
CPT/HCPCS: 36415; 82728; 84443

== ENCOUNTER → 2023-04-29 00:58 | Outpatient (CLI) | payer OTHER, SELFPAY ==
--- NOTE | 2023-04-29 | DI.MRI_ITS ---
Exam(s) MR LUMBAR SPINE WO/W EXAM: MR LUMBAR SPINE WO/W CLINICAL HISTORY: Lumbosacral spondylosis M47.817. TECHNIQUE: Multiplanar multisequence MRI of the Lumbar Spine was performed. CONTRAST MATERIAL: IV Contrast: 16 mL of Dotarem contrast administered. COMPARISON: MR MR LUMBAR SPINE WO/W from 01/26/2022 CR XR DEXA BONE DENSITY W/WO PB from 07/16/2022 FINDINGS: Bones: The last intervertebral disc space is designated the L5/S1 level for the numbering purpose of this examination. The vertebral body heights are well maintained. Alignment is satisfactory. There a re degenerative endplate signal changes seen at L5-S1. Postsurgical changes of a fusion of the sacroi liac joints is seen bilaterally. The patient has a right laminectomy at L5. Cord: The conus tip ends at the L1 level. It is of normal size and signal intensity. The conus is un remarkable. T12-L1: There is a small right-sided disc herniation. No nerve root compression. No central spinal canal or neural foraminal stenosis. L1-2: No disc herniations or bulges are present. No central spinal canal or neural foraminal stenosis . L2-3: No disc herniations or bulges are present. No central spinal canal or neural foraminal stenosis . L3-4: There is a mild diffuse disc bulge. No central spinal canal or neural foraminal stenosis. L4-5: There is a mild diffuse disc bulge. There are degenerative changes of the facets.No significan t central spinal canal or neural foraminal stenosis is seen. L5-S1: There is again seen a disc bulge at L5 which appears stable. The disc does appear to impinge upon the right S1 nerve root. There is mild narrowing of the central spinal canal. There is mild st able narrowing of the neural foramen bilaterally. Soft tissues: The visualized SI joints and sacrum are well maintained. The paraspinal soft tissues ar e unremarkable. There has been significant improvement of the enhancement in the right laminectomy defect at L5 with only a small amount of enhancement which persists. There is also been decreased enhancement in the a nterior epidural space at L5-S1. IMPRESSION: 1. Stable disc protrusion at L5-S1 since 01/26/2022. 2. Overall decrease in the enhancement of the postsurgical changes at L5-S1. No findings to suggest infection are seen. 3. Multilevel degenerative changes in the lumbar spine as described above. 4. Postsurgical changes of bilateral sacroiliac joint fusion. DATA REPOSITORY:
[2023-04-29 09:53] LABS: CREATININE 1.1 mg/dL (0.55-1.02); Estimated GFR 55.42 (mL/min/1.73m2)
[2023-04-29] MEDS: Normal Saline Flush 10 ML SYR IVP (10:02)
[2023-04-29] MEDS: Gadoterate meglumine 20 ML SYRINGE 16 ML IVP (10:03)
== END ==
PROVIDERS: PCP Nurse Practitioner Family; Visit Provider Neurological Surgery
DX: M47.817 Spondylosis without myelopathy or radiculopathy, lumbosacral region (principal); Z98.890 Other specified postprocedural states
CPT/HCPCS: 72158; 82565

== ENCOUNTER → 2023-08-16 15:01 | Outpatient (BNVA) | payer MEDICARE, SELFPAY | PROVIDERS: PCP Nurse Practitioner Family; Referring Provider Nurse Practitioner Family; Visit Provider Physician Assistant Surgical | DX: J45.909 Unspecified asthma, uncomplicated (principal); G47.33 Obstructive sleep apnea (adult) (pediatric); K22.70 Barrett's esophagus without dysplasia; Z87.891 Personal history of nicotine dependence | CPT/HCPCS: 99214 ==

== ENCOUNTER → 2023-08-23 02:36 | Outpatient (CLI) | payer MEDICARE, SELFPAY ==
--- NOTE | 2023-08-23 07:15 | DI.CTLCSR_ITS ---
Exam(s) CT CHEST LUNG CANCER SCREEN EXAM: CT CHEST LUNG CANCER SCREEN CLINICAL HISTORY: Screening for lung cancer,former smoker, z87.891 TECHNIQUE: Imaging Protocol: Axial computed tomography images with coronal and sagittal reformatted images were created and reviewed. Low dose screening protocol. COMPARISON: CT CT CHEST LUNG CANCER SCREEN from 04/29/2022 FINDINGS: Tracheobronchial tree: No bronchiectasis or mucus plugging.. Mediastinum and Bea: No dominant adenopathy or fluid collection. Pulmonary parenchyma: No consolidation or dominant measurable mass. Mild emphysematous changes. Lung Nodules: Bilateral calcified granulomas noted. Pleura: No effusion. No pneumothorax. Heart: The heart is not dilated. Moderate to severe coronary artery calcifications are seen. Aorta: Thoracic aorta non-dilated. Mild atherosclerotic changes. Upper abdomen: Enlarged liver with mild hepatic steatosis. Bones: Unremarkable for age. Soft Tissues: Unremarkable. IMPRESSION: No suspicious pulmonary nodules. Lung RADS Cat 2 - Benign Appearance / Behavior: Nodules with a very low likelihood of becoming a clin ically active cancer due to size or lack of growth Lung-RADS 1.0 CATEGORIES: Category 0 - Prior chest CT exam(s) being located for comparison. Category 1 - Annual screening in 12 months. No nodules or definitely benign nodules. Category 2 - Annual screening in 12 months. Benign appearance. Nodules with low likelihood of becomin g active cancer. Category 3 - 6-month follow-up. Probably benign. Short-term follow-up suggested. Nodules with low lik elihood of becoming active cancer. Category 4A - 3-month follow-up and CT/PET if >8 mm in size. Suspicious finding. Findings which requi re additional testing. Category 4B - Findings which require additional testing and tissue sampling. Category 4X - Category 3 or 4 nodules with additional features or imaging findings that increases the suspicion of malignancy. Modifier S- Potentially clinically significant findings (non lung cancer) RADIATION DOSE DELIVERED: 65.61mGy.cm Total DLP DATA REPOSITORY: All CT scans at this facility are submitted to the National Radiology Data Registry (NRDR) Dose Index Registry (DIR) with the [employer] (ACR). RADIATION OPTIMIZATION: All CT scans at this facility use at least one of these dose optimization te chniques: automated exposure control; mA and/or kV adjustment per patient size (includes targeted exa ms where dose is matched to clinical indication); or iterative reconstruction.
== END ==
PROVIDERS: PCP Nurse Practitioner Family; Visit Provider Physician Assistant Surgical
DX: Z87.891 Personal history of nicotine dependence (principal); Z12.2 Encounter for screening for malignant neoplasm of respiratory organs
CPT/HCPCS: 71271

== ENCOUNTER 2023-08-29 05:13 | Outpatient (CLI) | payer MEDICARE, SELFPAY ==
[2023-08-29 12:15] LABS: Abs Immature Grans 0.04 10^3/uL (0.0-0.06); Absolute Basophil Count 0.06 10^3/uL (0.0-0.2); Absolute Lymphocyte Count 2.24 10^3/uL (1.2-3.4); Absolute Monocyte Count 0.45 10^3/uL (0.1-0.8); Absolute Neutrophil Count 2.68 10^3/uL (1.2-6.7); Basophils % 1.1; Eosinophils % 3.5; HCT 33.3 % (36.0-46.0); HGB 10.1 g/dL (11.2-15.7); Immature Grans % 0.7; Lymphocytes % 39.5; MCH 23.5 pg (27.0-33.0); MCHC 30.3 % (32.0-36.0); MCV 77 fL (80-95); MPV 10.1 fL (8.0-11.0); Monocytes % 7.9; Neutrophils % 47.3; Platelet Count 281 10^3/uL (130-400); RDW 15.5 % (11.7-14.6); RDW-SD 43.3 fL; WBC 5.67 10^3/uL (4.4-10.8)
[2023-08-29 12:46] LABS: Albumin 3.6 g/dL (3.4-5.0); Alkaline Phosphatase 92 U/L (46-116); Anion Gap 11.7 mmol/L (3-11); BUN 15 mg/dL (7-18); Bilirubin, Total 0.3 mg/dL (0.2-1.0); CO2 26.3 mmol/L (21.0-32.0); CREATININE 0.8 mg/dL (0.55-1.02); Calcium 8.5 mg/dL (8.5-10.1); Chloride 103 mmol/L (98-107); Cholesterol 160 mg/dL (<200); Estimated GFR 81.21 (mL/min/1.73m2); Ferritin 9 ng/mL (8-252); Glucose 176 mg/dL (74-106); HDL Cholesterol 32 mg/dL (40-60); Potassium 3.9 mmol/L (3.5-5.1); Sodium 141 mmol/L (136-145); Total Protein 7.2 g/dL (6.4-8.2); Triglyceride 809 mg/dL (<150)
[2023-08-29 12:47] LABS: Hemoglobin A1C 7.5 % (<5.7)
[2023-08-29 12:59] LABS: ALT 37 U/L (14-59); AST 18 U/L (15-37)
[2023-08-29 13:01] LABS: LDL CHOLESTEROL 67 mg/dL (<100)
[2023-08-29 13:17] LABS: Vitamin D 25 Total 18.1 ng/mL (30-100)
== END 2023-08-29 05:14 | disposition home or self-care (01) ==
LOC: LOS 05:14
PROVIDERS: PCP Nurse Practitioner Family; Visit Provider Nurse Practitioner Family
DX: Z00.00 Encounter for general adult medical examination without abnormal findings (principal); R73.03 Prediabetes; D50.9 Iron deficiency anemia, unspecified; E78.1 Pure hyperglyceridemia; M85.80 Other specified disorders of bone density and structure, unspecified site
CPT/HCPCS: 36415; 80053; 80061; 82306; 83721; 82728; 83036; 85025

== ENCOUNTER 2023-09-09 06:09 | Outpatient (CLI) | payer MEDICARE, SELFPAY ==
--- NOTE | 2023-09-09 12:24 | W.NUTRFU ---
Date of service: 09/09/23 Time of Service: 10:00 Nutrition Note NOTE: Lynda comes in for nutrition referral regarding diabetes mgt and education. 08/29/23 a1c was 7.5% after <7 for the last 5 years.Checks her glucose 2-3 times per day - fasting and 2 hr post prandial. started on metformin recently. vitamin D low as well. Went over guidelines for Lynda's estimated nutrition needs of ~1400kcals, 140g carbs, 70-105g protein. Reviewed 15g serving size for carbs and goal to aim for ~9 servings per day split over her meals and snacks. We reviewed meal planning strategies to increase intake of protein and fiber while limiting added sugar. We discussed benefits of being active and strength training for better glucose control as well. most meals are on her own - she has dentures and avoids tough meats. She does report munching too often and will work on having 3 meals and no more than 1-2 PLANNED snacks per day. She has my contact info to reach out if needing any more resource or support with menu planning for above goals. Time Spent in Nutritional Counseling and Treatment: 30 minutes
== END 2023-09-09 06:10 | disposition home or self-care (01) ==
PROVIDERS: PCP Nurse Practitioner Family; Visit Provider Dietitian, Registered
DX: E11.9 Type 2 diabetes mellitus without complications (principal); Z71.3 Dietary counseling and surveillance
CPT/HCPCS: 00123; 97802

== ENCOUNTER → 2023-10-18 09:21 | Outpatient (BNVA) | payer MEDICARE, SELFPAY | PROVIDERS: PCP Nurse Practitioner Family; Referring Provider Nurse Practitioner Family; Visit Provider Surgery | DX: D50.9 Iron deficiency anemia, unspecified (principal) | CPT/HCPCS: 99213 ==

== ENCOUNTER 2023-11-02 08:42 | Day surgery (SDC) | payer MEDICARE, SELFPAY ==
--- NOTE | 2023-11-01 16:25 | PDOC.DSDIS_ITS ---
Date of service: 11/02/23 Time of Service: 11:14 Discharge Plan Disposition Patient Disposition: Home Condition: Good Discharge Details Reason For Visit: EGD and colonoscopy Attending Provider: Klever Mcneal Primary Care Provider: Samantha Escalante Home Meds and New Rx's Prescriptions: Continued clotrimazole 1 % cream 1 applic topical BID PRN (Reason: rash) Qty: 45 0RF Rx Instructions: Apply beneath breasts twice a day for 2-4wks and as needed famotidine 40 mg tablet 40 mg PO BID Qty: 180 3RF Dulera 100-5 mcg/actuation HFA aerosol inhaler 2 puff inhalation BID Qty: 13 12RF (DME) OneTouch Ultra Test Strip See Rx Instructions .MEDSUPPLY Qty: 200 3RF Rx Instructions: Check blood sugar twice a day ferrous sulfate 325 mg (65 mg iron) tablet 325 mg PO DAILY Qty: 90 3RF multivitamin [Daily Multi-Vitamin] 1 EACH tablet 1 ea PO DAILY levalbuterol tartrate [Xopenex HFA] 45 mcg/actuation HFA aerosol inhaler 2 inh inhalation Q6H PRN (Reason: shortness of breath) Qty: 15 3RF (DME) blood-glucose meter [OneTouch Ultra2 Meter] Misc See Rx Instructions .Route Qty: 1 2RF Rx Instructions: Check blood sugar twice a day (DME) lancets [OneTouch UltraSoft 2 Lancet] 30 gauge misc See Rx Instructions .Route Qty: 200 3RF Rx Instructions: Check blood sugar twice a day cholecalciferol (vitamin D3) 50 mcg (2,000 unit) capsule 2,000 unit PO DAILY Qty: 90 3RF Rx Instructions: Take 1 daily after the 8 weeks of the 50,000unit dose cholecalciferol (vitamin D3) 1,250 mcg (50,000 unit) capsule 50,000 unit PO QWEEK 56 Days Qty: 8 0RF Rx Instructions: 1 pill once a week for 8 weeks then switch to the 2000 unit dose acetaminophen 500 mg tablet 500 mg PO Q6H PRN (Reason: pain) Qty: 60 2RF ibuprofen 600 mg tablet 600 mg PO TID PRN (Reason: pain) Qty: 60 0RF Discontinued polyethylene glycol 3350 17 gram/dose powder 238 g PO ONCE Qty: 238 0RF Rx Instructions: take per colonoscopy instructions bisacodyl [Dulcolax (bisacodyl)] 5 mg tablet,delayed release (DR/EC) 5 mg PO ONCE Qty: 4 0RF Rx Instructions: take per colonoscopy instructions Discharge Instructions Additional Instructions: Alicia, we were able to complete your upper and lower endoscopy today without much difficulty. 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 It is a short segment, measuring only 2 cm long. I did do several biopsies across this area to make sure there are no worrisome changes. There is also a small amount of inflammation in your stomach called gastritis, as well as his small focus of this in the first portion of your small intestine, this is called duodenitis. This is typically associated with increased stomach acid. It could certainly be the source of some mild iron deficiency anemia. Antacid medications are the mainstay of therapy. In that regards, I would continue taking your famotidine. Avoiding nonsteroidal anti-inflammatory medication such as ibuprofen may also be helpful. I also encourage you to refrain from any cigarette smoking, or alcohol consumption as these can exacerbate Alford's esophagus. Your colonoscopy also went very smoothly. You do have multiple rectal polyps. There are too many to count. The majority of these appear to be hyperplastic polyps. This is 1 type that you had removed previously. I did remove several of the larger polyps, and a few of the others that look more consistent with adenomatous polyps (these are the more dangerous kind I found 3 other polyps along the length of your colon outside of your rectum. These were also removed today. You also have some vascular ectasia within the first portion of your colon (this is known as the cecum) these were seen on your previous colonoscopy. There is no evidence of any recent bleeding, and since the treatment of this can include some complications, I elected to leave them alone today. Once I have the results of all the biopsies, the office will be in touch. I have also taken the liberty of making a follow-up in my office for the end of November. Will see how you are doing and how you are feeling at that time, and probably repeat some blood work. If you are still struggling with anemia at that point, we can talk about different treatment options. 1. If tolerated, consume a soft, low fiber diet for 1-2 days. 2[address] Do not drive, drink alcohol, operate machinery, make critical decisions, or do activities that require coordination or balance for 24 hours. 3. Because air was put into your colon during the procedure, expelling air from your rectum (passing gas or farting) is normal. 4. You may not have a bowel movement for 1-3 days because of the colonoscopy prep. This is normal. 5. You may experience a sore throat for 24 to 48 hours. You may use throat lozenges or gargle with warm salt water to relieve the discomfort. 6. Because air was put into your stomach during the procedure, you may experience some belching. 7. Go directly to the emergency room if you notice any of the following: Develop chills (warm to touch), or if you have a thermometer and your temperature is above 101 Difficulty breathing or difficultly swallowing Persistent vomiting Severe abdominal pain, other than gas cramps Severe chest pain Black, tarry stools Any bleeding ? exceeding one tablespoon 8. Call your physician if the site where your intravenous was started becomes red, swollen, painful, and warm to touch. 9. Your physician has reviewed your pre-procedure medications. Please continue to take those medications as previously ordered. You will be given specific information/education regarding any changes to your medications before leaving. Stand Alone Forms: [facility]esthesia [facility]charge [facility] [place] Sanders ([facility]) Referrals: Klever Mcneal MD [ [facility] STAFF PHYSICIAN] - (December 05 at 8:30 AM) Activity:: Activity as Tolerated Diet:: As Tolerated Discharge Orders Discharge Orders: Discharge Order (Routine); Ordered 11/01/23 Ordered By: Klever Mcneal DS: Diagnosis Discharge Diagnosis (1) Iron deficiency anemia: Status: Chronic Asessment and Plan: Follow-up on biopsy results
--- NOTE | 2023-11-01 16:26 | W.PM.ENDDOP ---
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 Gastritis, duodenitis, colorectal polyps. Cecal vascular ectasia) PROCEDURE: EGD and colonoscopy SURGEON: Klever Mcneal ANESTHESIA TYPE: General:No Airway ESTIMATED BLOOD LOSS: 10 PATHOLOGY: other (Gastric ulcer, duodenal ulcer, random biopsies of gastric antrum and body, esophageal biopsy, four-quadrant biopsies of Alford's esophagus; rectal polyps x 6, colon polyp at 45 cm, 25 cm and 15 cm) COMPLICATIONS: None DISPOSITION: same day INDICATIONS: Alicia is a 67-year-old woman who is due for screening colonoscopy. Incidentally, she has some iron deficiency anemia and some upper GI symptoms. PREP: Miralax/Dulcolax PROCEDURE START TIME: 10:21 PROCEDURE END TIME: 10:56 COLONOSCOPY RETRACTION TIME: 12 FINDINGS: Gastric ulcer, duodenal ulcer, Alford's esophagus from 35 to 37 cm; rectal polyps x 6, colon polyp at 45 cm, 25 cm and 15 cm PROCEDURE DESCRIPTION: After the initiation of anesthesia, and with the assistance of a bite block, I advanced a standard gastroscope through the mouth past the hypopharynx and into the esophagus.? Under the direct vision of the scope, I advanced down the esophagus towards the stomach.? The Z-line ended at 35 cm from the incisors with irregularity. There was short segment Alford's esophagus extending down to 37 cm from the incisors at the GE junction. There was 1 fold of heaped up tissue along the posterior left side of the esophagus. Narrowband imaging was used to assist with analysis here. Four-quadrant biopsies of the Alford's esophagus was performed with cold forceps, and a biopsy of the distal esophagus was also included. Next, I advanced the camera down into the stomach and insufflated into the rugae were obliterated. I performed retroflexion. There was a small focus of gastritis that was biopsied with cold forceps. I turned the camera antegrade, and advanced down around the incisura angularis towards the pylorus I was able to navigate across the pylorus without any difficulty. Majority of the duodenum was normal and healthy appearing. However there was 1 small focus of duodenitis. This was biopsied with cold forceps as well. I then backed the camera up into the stomach proper, and perform some random biopsies of gastric antrum and body to rule out Helicobacter pylori. The stomach was then emptied, and the camera was brought back up into the segment of Alford's esophagus. Again it was examined. No other pathology was appreciated. The camera was then brought out along the length of the rest of the esophagus which was normal-appearing Next we rolled Alicia into the left lateral decubitus position. Care was taken to pad and support her appropriately. I began by performing an external anorectal exam.? Perineum and skin were normal, as was the anal verge.? There was no evidence of external hemorrhoids.? Next, I performed a digital rectal exam.? I did not appreciate any abnormal findings.? Next, I advanced a colonoscope into the rectal vault.? I performed retroflexion.? This was normal.? There were multiple polyps throughout the rectum. There were too many to count. Majority of these were well less than 0.25 cm. Narrowband imaging was used to analyze the polyps. Overwhelming majority appeared hyperplastic. Tobacco Primer Machine Operator polypectomy of the larger polyps was performed. 6 rectal polyps were removed in total. This was all done with cold forceps without any worrisome bleeding. Using insufflation, I then advanced the colonoscope beyond the rectal folds and into the sigmoid colon before advancing towards the cecum.? The quality of the prep was excellent.? The scope was noted to be in the cecum by identification of the ileocecal valve and appendiceal orifice.? There was some vascular ectasia within the lower portion of the cecum. There was no stigmata of any recent bleeding. I then began withdrawing the colonoscope using repeated irrigation as necessary for full evaluation of the colonic mucosa. Around 45 cm from the anal verge I identified a 0.25 cm polyp. ?It appeared flat in character. ?I was able to remove this with a cold forcep polypectomy. ?I examined the site, and there was minimal bleeding. Similarly, I found polyps at 25 and 15 cm. These were also about 0.25 cm. These were also flat. Similar to the others, I used cold forceps to remove these polyps. Once this was completed, I continued to withdraw the scope and examine the remainder of the colonic mucosa.?Once the scope was withdrawn to the level of the rectum, great care was taken to examine portions of the rectal folds.? Finally, the scope was withdrawn and the patient was brought to the same-day surgery recovery unit as the anesthetic wore off. ?The findings and instructions were shared with the patient prior to discharge.
[2023-11-02 08:47] VITALS: BP 144/78; PULSE 75; RESP 18; TEMP 36.5; O2SAT 98
[2023-11-02] MEDS: Lactated Ringers 1,000 ML 80 ML IV (09:22)
[2023-11-02 09:53] VITALS: BMI 33.3
--- NOTE | 2023-11-02 09:53 | W.ANESPRE ---
General Info Date of Service Date Performed: 11/02/23 Height: 4 ft 10.5 in Weight: 73.6 kg Body Mass Index (BMI): 33.3 Surgical Procedure: Operation Date: 11/02/23 10:05 Proposed Procedure Side Surgeon p Colonoscopy/Gastroscopy Klever Mcneal MD Actual Procedure Side Surgeon p Colonoscopy/Gastroscopy Not Applicable Klever Mcneal MD Pre-Op Diagnosis Post-Op Diagnosis EGD and colonoscopy Meds Allergies and Home Medications Allergies Allergy/AdvReac Type Severity Reaction Status Date / Time codeine AdvReac Intermediate Skin Rash Verified 11/02/23 09:07 metformin AdvReac Intermediate leg cramps Verified 11/02/23 09:07 omeprazole AdvReac Intermediate Rash, Verified 11/02/23 09:07 itching all over Penicillins AdvReac Intermediate Skin Rash Verified 11/02/23 09:07 Ucafkog-TWU-XgL Reductase AdvReac Intermediate MUSCLE Verified 11/02/23 09:07 Inhibitor ACHES [Akwbtvc-Baw-Pou Reductase Inhibitor] esomeprazole AdvReac Mild Pruritus Verified 11/02/23 09:07 pantoprazole AdvReac Mild Pruritus Verified 11/02/23 09:07 metronidazole AdvReac Unknown DIARRHEA Verified 11/02/23 09:07 Home Medication Medication Instructions Recorded multivitamin (Daily Multi-Vitamin 1 ea PO DAILY 09/21/17 tablet) acetaminophen 500 mg tablet 500 mg PO Q6H PRN pain #60 tabs 01/05/22 ibuprofen 600 mg tablet 600 mg PO TID PRN pain #60 tabs 01/05/22 levalbuterol tartrate 45 2 inh inhalation Q6H PRN shortness 01/18/23 mcg/actuation aerosol inhaler of breath #15 grams (Xopenex HFA) mometasone-formoterol HFA 100 2 puff inhalation BID #13 grams 08/16/23 mcg-5 mcg/actuation aerosol inhaler (Dulera) clotrimazole 1 % topical cream 1 applic topical BID PRN rash #45 08/25/23 grams famotidine 40 mg tablet 40 mg PO BID #180 tabs 08/25/23 blood sugar diagnostic (ReShape MedicalTouch #200 ea 09/02/23 Ultra Test strips) ferrous sulfate 325 mg (65 mg 325 mg PO DAILY #90 tabs 09/02/23 iron) tablet blood-glucose meter (ReShape MedicalTouch #1 ea 09/05/23 Ultra2 Meter) lancets 30 gauge (OneTouch #200 ea 09/05/23 UltraSoft 2 Lancet) cholecalciferol (vitamin D3) 1,250 50,000 unit PO QWEEK 8 weeks #8 09/12/23 mcg (50,000 unit) capsule caps cholecalciferol (vitamin D3) 50 2,000 unit PO DAILY #90 caps 09/12/23 mcg (2,000 unit) capsule Current Visit Medications: Current Medications Generic Name Dose Route Start Last Admin Trade Name Freq PRN Reason Stop Dose Admin Hyoscyamine Sulfate 0.125 mg 11/01/23 16:27 Hyoscyamine 0.125 Mg Sl/Oral/Chew SL 12/01/23 16:26 DIRECTED PRN Ringer's Solution 1,000 mls @ 80 mls/hr 11/02/23 06:00 11/02/23 09:22 IV 12/01/23 23:59 80 mls/hr INFUSION ALEXI Administration IV Miscellaneous Supplies 1 each 11/02/23 06:00 Iv Access IV 12/01/23 23:59 DIRECTED ALEXI Ondansetron HCl 4 mg 11/01/23 16:27 Ondansetron 4 Mg/2 Ml Vial IVP 12/01/23 16:26 Q4H PRN PRN Nausea / Vomiting Sodium Chloride 0 ml 11/02/23 06:00 Normal Saline Flush 10 Ml Syr IV 12/01/23 23:59 PRN PRN Sodium Chloride 0 ml 11/02/23 06:00 Normal Saline 10 Ml Vial IJ 12/01/23 23:59 DIRECTED PRN Sterile Water 0 ml 11/02/23 06:00 Water,Injection,Sterile 10 Ml Vial IJ 12/01/23 23:59 DIRECTED PRN PFSH Active Problems Active Problems: Problem Status Onset Code Sacroiliac joint dysfunction of left side M53.3 Vitamin D deficiency E55.9 Type 2 diabetes mellitus E11.9 Lumbar spondylosis M47.816 Obesity (BMI 30-39.9) E66.9 Metabolic dysfunction-associated steatotic liver disease (MASLD) K76.0 HOLDEN (obstructive sleep apnea) G47.33 Osteopenia M85.80 Asthma J45.909 Former Cigarette Smoker Z87.891 Iron deficiency anemia D50.9 Serrated adenoma of colon D12.6 Barretts esophagus ~2018 K22.70 Hypertriglyceridemia E78.1 Medical History Medical History Lumbago Sacral dysfunction DDD (degenerative disc disease), lumbar Back pain with radiculopathy Lumbosacral spondylosis NAFL (nonalcoholic fatty liver) HNP (herniated nucleus pulposus), lumbar Hypercholesterolemia Seborrheic keratoses Adenoma of colon H. pylori infection (~02/2022) Depressive disorder Pt. denies Surgical History Surgical History S/P lumbar laminectomy (08/05/21) Right L5-S1 hemilaminectomy, medial facetectomy, lateral recess decompression S/P fusion of sacroiliac joint (11/17/22) History of right salpingo-oophorectomy (06/21/22) S/P excision of lipoma History of discectomy History of esophagogastroduodenoscopy (EGD) (02/17/22) 2021 Alford's esophagus. S/P colonoscopy (02/17/22) 2016- Sessile serrated adenoma and Tubular adenoma 2019- Hyperplastic polyps x10. 2021--20 hyperplastic polyps 4 sessile serrated adenomas S/P trigger finger release (09/04/18) Left thumb 09/04/18, right thumb 05/21/19 S/P laparoscopic hysterectomy S/P left oophorectomy S/P tonsillectomy and adenoidectomy S/P cataract surgery History of section S/P appendectomy Tobacco Smoking/Tobacco Use Status: Former Tobacco Use Passive smoking exposure: Yes Second hand exposure: Yes Alcohol Alcohol Intake: never Substance Use Substance use: Never Substance use type: does not use Prental History History 3 Para 3 Hx # Term Pregnancies Multiple births Hx # Pregnancies Ectopic pregnancies AB induced Hx Number of Living Children 3 AB spontaneous Vital Signs and Lab Results Vital Signs Most Recent Vital Signs in EMR: Most Recent Vital Signs Temp Pulse Resp BP Pulse Ox 36.5 C 75 18 144/78 H 98 11/02/23 08:47 11/02/23 08:47 11/02/23 08:47 11/02/23 08:47 11/02/23 08:47 Lab Results Blood Type / Crossmatch: No Data to Display Complete Blood Count: No Data to Display Complete Metabolic Panel: No Data to Display Liver Function Panel: No Data to Display Coagulation Panel: No Data to Display Cardiac Panel: No Data to Display Arterial Blood Gas: No Data to Display Venous Blood Gas: No Data to Display Pancreas Panel: No Data to Display Thyroid Panel: No Data to Display Infectious Disease: No Data to Display Blood Cultures: No Data to Display Toxicology Panel: No Data to Display Imaging and Studies Imaging and Studies Study information below may be from another EMR and interpreted by another provider. Please see original notes in EMR for more complete details. EKG Summary: Conclusion Sinus rhythm...normal P axis, V-rate 60- 99 Ventricular premature complex...V complex w/ short R-R interval 07/08/21 Stress Test Summary: DATE: 05/24/2014: Normal Pulmonary Function Summary: DATE OF SERVICE: April 18, 2019 REQUESTING PROVIDER: Samantha Escalante M.D. Spirometry shows no evidence of obstructive airways disease, no bronchodilator response. Lung volumes show no evidence of restriction. Diffusion capacity normal. Airways resistance normal. IMPRESSION: Normal pulmonary function study. Clinical correlation recommended. Anesthesia Assessment and Plan Anesthesia History Personal History: No History of Anesthesia Complications Family History: No Family History of Anesthesia Complications Exercise Tolerance Exercise Tolerance: Metabolic Equivalents>4 Cardiac & Pulmonary Exam Cardiac Exam: Normal S1/S2 Heart Sounds Pulmonary Exam: Clear Bilateral Breath Sounds Implantable Cardiac Device Does patient have a Pacemaker or an ICD?: No Airway Exam Known Difficult Airway: No Mallampati Class: 2 Mouth Opening: Normal (> 3cm) Thyromental Distance: Greater than 3 cm Neck Range of Motion: Full ROM Neck Circumference: Normal Teeth Condition: Removable Dentures/Plates Upper (Removable uppers, fixed lower dentures) ASA Classification ASA Score: ASA 2 Emergency Case?: No NPO Status NPO Status: NPO Clears >2 hours, Solids >8 hours Anesthesia Plan Resuscitation Status: Full Code Anesthesia Technique: General Anesthesia Airway Planned: Natural Airway Monitors Used: Standard Monitors
--- NOTE | 2023-11-02 10:24 | BOWEL_PTH ---
PATIENT: Lynda Pedersen LOC: [facility] U#:[id number] AGE/SX: 67/F ROOM: RE11/02/[address]: Klever Mcneal MD : [id number] BED: DIS: 11/02/2023 SPEC #: [id number] RECD: 11/02/23 13:03 STATUS: [facility] #: [id number] MULUGETA: 11/02/23 10:[address]: Klever Mcneal DEPT: Surgical Specimen RECD BY: Caprice Nguyen ENTERED: 11/02/23 13:08 SP TYPE: Bowel OTHR DR: Samantha Escalante, DIRECTOR DRUG Tissues: 1 - BIOPSY BOWEL 2 - STOMACH BIOPSY 3 - STOMACH BIOPSY 4 - STOMACH BIOPSY 5 - ESOPHAGUS BIOPSY 6 - ESOPHAGUS BIOPSY 7 - BIOPSY BOWEL 8 - BIOPSY BOWEL 9 - BIOPSY BOWEL 10 - BIOPSY BOWEL 11 - BIOPSY BOWEL Procedures: GROSS AND MICRO LEVEL 4 Comments: [id number]
[2023-11-02 11:04] VITALS: BP 109/67; PULSE 78; RESP 16; TEMP 35.9; O2SAT 94
--- NOTE | 2023-11-02 11:24 | W.ANESPOSTOP ---
Postoperative Evaluation Date, Time and Location Date Performed: 11/02/23 Time Performed: 11:24 Patient Location: Day Surgery Unit Vital Signs Most Recent Imported Vital Signs: Most Recent Vital Signs Temp Pulse Resp BP Pulse Ox 35.9 C L 78 16 109/67 94 11/02/23 11:04 11/02/23 11:04 11/02/23 11:04 11/02/23 11:04 11/02/23 11:04 Assessment Mental Status: Awake (Alert & Oriented to Patient Baseline) Airway and Respiratory Function: Patent airway with normal (patient baseline) respiratory exam Cardiovascular Function: Hemodynamically Stable Hydration Status: Adequately Hydrated Nausea & Vomiting: No Nausea or Vomiting Pain: Pt. Denies Any Pain Peripheral Nerve Block: Patient did not receive a nerve block
[2023-11-02 11:42] VITALS: BP 151/77; PULSE 61; RESP 16; TEMP 36.6; O2SAT 95
== END 2023-11-02 11:57 | disposition home or self-care (01) ==
LOC: SUR 08:42
PROVIDERS: PCP Nurse Practitioner Family; Visit Provider Surgery
PROC: (CPT 45380; principal; 2023-11-02 10:00)
DX: D50.9 Iron deficiency anemia, unspecified (principal); K63.5 Polyp of colon; K62.1 Rectal polyp; K22.70 Barrett's esophagus without dysplasia; Z12.11 Encounter for screening for malignant neoplasm of colon; K29.70 Gastritis, unspecified, without bleeding; K29.80 Duodenitis without bleeding; K22.89 Other specified disease of esophagus
CPT/HCPCS: 45380; 43239; 88305; J2001; J2704

== ENCOUNTER 2023-11-25 01:12 | Outpatient (CLI) | payer MEDICARE, SELFPAY ==
--- OUTSIDE RECORDS SUMMARY | 2023-11-25 01:15 | XMS_ITS | Encounter Summary ---
Author Organization [facility] [place] [address] Care Team Providers Care [place] Guide Name Role Phone Samantha Escalante APRN Primary Care Provider Encounter Details Date Type Department Care Team (Late st Contact Info) Description 10/27/2023 6:05 PM EDT Ancillary [place] [address] Samantha Escalante APRN [address] [place], [place] [id number] Social History Tobacco Use Types Packs/Day Years Used Date Smoking Tobacco: Former Cigarettes 1 45 1 973 - 2018 Smokeless Tobacco: Never Alcohol Use Standard Drinks/Week Comments Never 0 (1 standard drink = 0.6 oz pur e alcohol) IPV Inpatient Questions Answer Date Recorded Does Anyone Try to Keep You From Having Contact with Others or Doing Things Outside Your Home? no 11/17/2022 Feels Threatened by Someone no 11/06 Feels Unsafe at Home or Work/School no 11/17/2022 Physical Signs of Abuse Present no 11/17/2022 Sex and Gender Information Value Date Recorded Sex Assigned at Not on file Gender Identity Not on file Sexual Orientation Not on file documented as of this encounter Plan of Treatment Not on file documented as of this encounter Procedures Procedure Name Priority Date/Time Associated Diagnosis Comments FILM LIBRARY STORAGE ONLY CT PELVIS Routine 10/27/2023 6:00 PM EDT documented in this encounter Results * Film Library- Storage Only CT Pelvis (10/27/2023 6:00 PM EDT) Narrative DESTINY - 10/27/2023 6:00 PM EDT This exam is auto-finalizing. It's purpose is for storage only. Samantha Escalante APRN IMG FILM LIBRARY OR DERABLES Performing Organization Address City/State/[facility] Co de Phone Number [place], [place] documented in this encounter Visit Diagnoses Not on filedocumented in this encounter Care Teams [place] Guide Relationship Specialty Start Date End Date Samantha Escalante APRN [address] [place] [address] PCP - General Family Medicine 10/06/17 documented as of this encounter
--- OUTSIDE RECORDS SUMMARY | 2023-11-25 01:15 | XMS_ITS | Encounter Summary ---
Author Organization [facility] [place] [address] Care Team Providers Care Specialty Department Supervisor Name Role Phone Samantha Escalante [facility] Primary Care Provider Encounter Details Date Type Department Care Team (Late st Contact Info) Description 09/23/2023 Orders Only Hematology [place] [address] Jacqui Small CIRCULATION SALES REPRESENTATIVE [facility] DR HEMATOLOGY[place] [address] Social History Tobacco Use Types Packs/Day Years Used Date Smoking Tobacco: Former Cigarettes 1 45 1 [id number] Smokeless Tobacco: Never Alcohol Use Standard Drinks/Week Comments Never 0 (1 standard drink = 0.6 oz pur e alcohol) ON LICENSE OF [facility] Inpatient Questions Answer Date Recorded Does Anyone [...] on file documented as of this encounter Visit Diagnoses Not on filedocumented in this encounter Care Teams Specialty Department Supervisor Relationship Specialty Start Date End Date Samantha Escalante APRN [address] [place] [address] PCP - General Family Medicine 10/06/17 documented as of this encounter
--- OUTSIDE RECORDS SUMMARY | 2023-11-25 01:15 | XMS_ITS | Clinical Summary ---
Author Organization [facility] [place] [address] Care Team Providers Care Lead Sharepoint Developer Name Role Phone Samantha Escalante CHACE Primary Care Provider [phone] Allergies Active Allergy Reactions Criticality Noted Date Comments Codeine Phosphate Medium CIS - Nausea/Vomiting Esomeprazole Itching 10/13/2020 Metronidazole 06/05/2019 Other reaction(s): DIARRHEA Omeprazole High 12/27/2019 Other reaction(s): Rash, itching all over Pantoprazole Itching 10/13/2020 Penicillins Medium CIS - Rash PAT Penicillin Allergy Risk Assessment 06/11/2022: Low risk penicillin allergy. OK to receive full dose of cefazolin, cefuroxime, or any 3rd or 4th+ generation cephalosporin. PAT Clinic STAVE JOINTER to place Allergy referral for formal penicillin allergy evaluation. Patient open to a phone consult from the allergy clinic. Mlejqij-Myg-Skc Reductase Inhibitors High 06/05/2019 Other reaction(s): MUSCLE ACHES Vancomycin Analogues Other (See Comments) Low 08/05/2021 Pt unable to tolerate 1g over 60 min. -scalp pruritis and minor erythema to chest and face Medications Medication Sig Dispensed Refills Start Date End Date Status acetaminophen (Tylenol) 500 mg Tablet Take 1,000 mg by mouth every 6 hours as needed for Pain. Active ibuprofen (Advil) 600 mg Tablet TAKE ONE TABLET BY MOUTH THREE TIMES A DAY NEEDED FOR PAIN 01/05/2022 Active clotrimazole (LOTRIMIN) 1 % Cream APPLY 1 APPLIATION TWICE A DAY NEEDED FOR RASH UNDER BREASTS. USE FOR 2-4 WEEKS 01/06/2022 Active famotidine (Pepcid) 40 mg Tablet Take 40 mg by mouth every morning. Active mometasone-formoter ol (Dulera) 50-5 mcg/actuation HFA Aerosol Inhaler Inhale 2 puffs into the lungs 2 times daily. Active levalbuteroL (XOPENEX HFA) 45 mcg/actuation HFA Aerosol Inhaler Inhale 1-2 puffs into the lungs every 4 hours as needed. Active diclofenac (Voltaren) 1 % Gel Apply topically. Active traMADoL (Ultram) 50 mg tablet Take 1 tablet by mouth every 6 hours as needed for Pain. 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 Trochanteric bursitis of right hip 06/11/2022 Prediabetes 06/11/2022 Obesity 06/11/2022 Lumbar disc herniation with radiculopathy 2022 Iron deficiency anemia 06/11/2022 Hyperlipidemia 06/11/2022 Gastroesophageal reflux 06/11/2022 Fatty liver disease, nonalcoholic 06/11/2022 Elevated BP without diagnosis of hypertension Chronic low back pain 06/11/2022 Barretts syndrome 06/11/2022 Seborrheic keratosis 04/14/2018 Encounters Date Type Department Care Team Description 10/27/2023 6:05 PM EDT Ancillary Procedure [place] [address] Samantha Escalante APRN 09/23/2023 Orders Only Hematology [place] [address] Jacqui Small, CHACE from Last 3 Months Social History Tobacco Use Types Packs/Day Years Used Date Smoking Tobacco: Former Cigarettes 1 45 1 2017 Smokeless Tobacco: Never Tobacco Cessation:Counseling Given: Not Answered Alcohol Use Standard Drinks/Week Comments Never 0 (1 standard drink = 0.6 oz pur e alcohol) [facility] Inpatient Questions Answer Date Recorded Does Anyone [...] on file Sexual Orientation Not on file Last Filed Vital Signs Vital Sign Reading Time Taken Comments Blood Pressure 159/74 11/17/2022 3:45 PM EDT Pulse 82 11/17/2022 3:45 PM EDT Temperature 36 ??C (96.8 ??F) 11/17/2022 2:15 PM EDT Respiratory Rate 22 11/17/2022 3:45 PM EDT Oxygen Saturation 98% 11/17/2022 3:45 PM EDT Inhaled Oxygen Concentration - - Weight 75.8 kg (167 lb) 07/09/2022 9:36 AM EST Height 148.6 cm (4' 10.5) 07/09/2022 9:36 AM ES T Body Mass Index 34.31 07/09/2022 9:36 AM EST Plan of Treatment Health Maintenance Due Date Last Done Comments CT Colonography 1956 Colonoscopy 1956 Colorectal Cancer Screening 1956 FIT DNA 1956 FIT 1956 Sigmoidoscopy (10 year) with FIT yearly 1956 Sigmoidoscopy 1956 Hepatitis C Screening 1974 Lipid Screening 1974 Tdap adult 12/04/1975 Tetanus vaccine 12/04/1975 HPV test 1986 PAP Smear 1986 Breast Cancer Share Decision Needed 1996 Breast Cancer screening 1996 Zoster vaccine (1 of 2) 2006 Bone Density Scan 2021 Pneumoccocal Vaccine: 65+ (1 of 1 - PCV) 2021 Covid-19 Vaccine (1 - 2022-24 season) 2023 Pre-DM monitoring (HgbA1C or FBG) 06/11/2023 023 Influenza (Flu) vaccine (1 o f 1 - Influenza standard series) 01/08/2024 Diabetes Screening (HgbA1C or Glucose) Discontinued Medical Devices Implanted Type Area Insurance Claims Examiner Device Identifier Shelf Expiration Date Model / Serial / Lot Kit Graft Bone Sponge 8cc Bmp Syringe Lrg Granules Infuse ([id number]) (Autoreq) - [id number] Implanted:Qty : 1 on 11/17/2022 by Jacinto Apodaca MD at [facility] IMPLANTS Midline: Sacrum [employer] 12/06/2022 [id number] / / [id number] Screw Spinal 98o09tn Sacroiliac Thread Sld Ti ([id number]) ([employer]oreq) - [id number] Implanted:Qty : 1 on 11/17/2022 by Jacinto Apodaca MD at [facility] IMPLANTS Right: Sacrum [employer] 08/17/2029 [id number] / / [id number] Screw Spinal 15m25et Sacroiliac Thread Sld Ti ([id number]) ([employer]q) - [id number] Implanted:Qty : 1 on 11/17/2022 by Jacinto Apodaca MD at [facility] IMPLANTS Right: Sacrum [employer] 03/26/2030 [id number] / / [id number] Screw Spinal 20s80zi Sacroiliac Thread Sld Ti ([id number]) ([employer]oreq) - [id number] Implanted:Qty : 1 on 11/17/2022 by Jacinto Apodaca MD at [facility] IMPLANTS Left: Sacrum [employer] 02/16/2030 [id number] / / [id number] Screw Spinal 73s09ke Sacroiliac Thread Sld Ti ([id number]) ([employer]oreq) - [id number] Implanted:Qty : 1 on 11/17/2022 by Jacinto Apodaca MD at [facility] IMPLANTS Left: Sacrum [employer] 10/23/2030 [id number] / / [id number] Explanted Type Area Insurance Claims Examiner Device Identifier Shelf Expiration Date Model / Serial / Lot Pin Fixation 150mm Ant Cerv Fusn Ss ([id number]) (Autoreq) - [id number] Explanted:Qty : 1 on 11/17/2022 by Jacinto Apodaca MD at [facility] IMPLANTS Midline: Sacrum [employer] 07/07/2024 [id number] / / [id number] Procedures Procedure Name Priority Date/Time Associated Diagnosis Comments FILM LIBRARY STORAGE ONLY CT PELVIS Routine 10/27/2023 6:00 PM EDT COMPREHENSIVE METABOLIC PANEL (NON-FASTING) Routine 06/11/2022 12:40 PM EST Pelvic mass in female from Last 3 Months or Most Recently Relevant to Health Maintenance Results * Film Library- Storage Only CT Pelvis (10/27/2023 6:00 PM EDT) Narrative [facility] - 10/27/2023 6:00 PM EDT This exam is auto-finalizing. It's purpose is for storage only. Samantha Adjovu STAVE JOINTER IMG FILM LIBRARY OR DERABLES [place], [place] * (ABNORMAL) Comprehensive metabolic panel (non-fasting) (06/11/2022 12:40 PM EST) Glucose Lvl 90 65 - 199 mg/dL [facility] Comment:Diabetes: >=200 mg/d L plus symptoms BUN 11 8 - 18 mg/dL [facility] Creatinine 0.75 0.70 - 1.20 mg/dL [facility] Sodium 137 135 - 145 mmol/L [facility] Potassium 4.7 3.5 - 5.0 mmol/L [facility] Comment: Please note: ??Patients with WBC >100,000 may have falsely elevated Potassium levels. ??For accurate Potassium quantification in these patients send serum separator tube (gold top) for subsequent determinations. ??Contact the Clinical Chemistry Laboratory if there are any questions. Chloride 100 98 - 107 mmol/L [facility] CO2 26 22 - 31 mmol/L [facility] Anion Gap 11 5 - 15 mmol/L [facility] Calcium 10.3 8.5 - 10.5 mg/dL [facility] Total Protein 7.8 6.1 - 8.0 g/dL [facility] Albumin 4.8 3.2 - 5.2 g/dL [facility] AST 38(H) 0 - 30 unit/L [facility] ALT 53(H) 0 - 30 unit/L [facility] Alk Phos 54 35 - 105 unit/L [facility] Total Bilirubin 0.3 0.2 - 1.3 mg/dL [facility] Estimated GFR 88 >=60 mL/min/1. 73 m?? [facility] Comment: This patient's estimated GFR was calculated using the 2020 CKD-EPI equation. The estimated GFR can vary from the measured GFR by up to 30% in the absence of rapidly changing kidney function. Assessment of the estimated GFR is not appropriate when creatinine concentrations are rapidly changing. For clinical situations in which a more precise estimate of GFR is necessary, consider alternative methods of GFR estimation such as a 24-hour urine creatinine clearance. Assignment of CKD stage 1-5 for patients with an eGFR near the transition point between stages may be based on clinical assessment of muscle mass and symptoms in addition to eGFR. Blood 06/11/2022 12:4 0 PM EST 06/11/2022 12:54 PM EST Narrative Resulting Agency Comment Spec In Lab Tonia Eli MD CHEMISTRY ORDERABL ES [facility] [place] [address] from Last 3 Months or Most Recently Relevant to Health Maintenance Advance Directives Documents on File Type Date Recorded Patient Tactical Deception Plans Officer Expl anation Advance Directives and Livin g Will 06/23/2022 12:13 PM 07/16/21 Care Teams Lead Sharepoint Developer Relationship Specialty Start Date End Date Samantha Escalante APRN [address] [place] [address] [address] [place] [address] PCP - General Family Medicine 10/06/17
--- OUTSIDE RECORDS SUMMARY | 2023-11-25 01:15 | XMS_ITS | Encounter Summary ---
Author Organization [facility] [place] [address] Care Team Providers Care Manager E Commerce Name Role Phone Samantha Escalante APRN Primary Care Provider Encounter Details Date Type Department Care Team (Late st Contact Info) Description 04/29/2023 Ancillary Procedure [place] [address] Samantha Escalante APRN [address] [place], [place] [id number] Social History Tobacco Use Types Packs/Day Years Used Date Smoking Tobacco: Former Cigarettes 1 45 1 973 - 2018 Smokeless Tobacco: Never Alcohol Use Standard Drinks/Week Comments Never 0 (1 standard drink = 0.6 oz pur e alcohol) [facility] Inpatient Questions Answer Date Recorded Does Anyone [...] Associated Diagnosis Comments FILM LIBRARY STORAGE ONLY MR SPINE Routine 04/29/2023 12:00 AM EST documented in this encounter Results * Film Library- Storage Only MR Spine (04/29/2023 12:00 AM EST) Narrative [facility] - 05/04/2023 9:04 AM EST This exam is auto-finalizing. It's purpose is for storage only. Samantha Escalante APRN IMG FILM LIBRARY OR DERABLES Performing Organization Address City/State/[facility] Co de Phone Number [place], [place] documented in this encounter Visit Diagnoses Not on filedocumented in this encounter Care Teams Manager E Commerce Relationship Specialty Start Date End Date Samantha Escalante APRN [address] [place] [address] PCP - General Family Medicine 10/06/17 documented as of this encounter
--- OUTSIDE RECORDS SUMMARY | 2023-11-25 01:16 | XMS_ITS | Encounter Summary ---
[place] [address] Care Team Providers Care Advertising Sales Representative Name Role Phone Samantha Escalante APRN Primary Care Provider Reason for Referral * Consultation (Routine) - Closed Specialty Diagnoses / Procedures Referred By Wai t Referred To Contact Obstetrics and Gynecology Diagnoses Cyst of right ovary Samantha Escalante APRN [address] [place] [address] [facility] [place] [place] [employer]olt [employer] [address] [place] [phone] Referral ID Status Reason Start Date Expiration Date V isits Requested Visits Authorized [id number] Closed Consult, Test & Treat PCP Updated and/or Approved 04/19/2022 04/19/2023 6 6 Encounter Details Date Type Department Care Team (Late st Contact Info) Description 04/19/2022 Transcribe Orders eDH Incoming Referrals [phone] Samantha Escalante APRN [address] [place], [place] [address] Cyst of right ovary Social History Tobacco Use Types Packs/Day Years Used Date Smoking Tobacco: Former Smokeless Tobacco: Never Sex and Gender Information Value Date Recorded Sex Assigned at Not on file Gender Identity Not on file Sexual Orientation Not on file documented as of this encounter Plan of Treatment Scheduled Referrals Name Type Priority Associated Diagnoses Orde r Schedule Referral to Ob-Auto [facility] Outpatient Referral Routine Cyst of right ovary Ordered: 04/19/2022 documented as of this encounter Visit Diagnoses Diagnosis Cyst of right ovary Other and unspecified ovarian cyst documented in this encounter Care Teams Advertising Sales Representative Relationship Specialty Start Date End Date Samantha Escalante APRN [address] [place] [address] PCP - General Family Medicine 10/06/17 documented as of this encounter
--- OUTSIDE RECORDS SUMMARY | 2023-11-25 01:16 | XMS_ITS | Encounter Summary ---
Author Organization [facility] [place] [address] Care Team Providers Care Bleach Mixer Name Role Phone Samantha Escalante APRN Primary Care Provider Reason for Visit * Reason Comments Follow-up Encounter Details Date Type Department Care Team (Late st Contact Info) Description 09/21/2021 10:45 AM EDT Office Visit Dermatology at [address] [address] Willard Parra MD [address] [facility] [place] [address] Dermatofibroma; Seborrheic keratoses; Seborrheic keratosis, inflamed Social History Tobacco Use Types Packs/Day Years Used Date Smoking Tobacco: Former Smokeless Tobacco: Never Sex and Gender Information Value Date Recorded Sex Assigned at Not on file Gender Identity Not on file Sexual Orientation Not on file documented as of this encounter Progress Notes * Willard Parra MD - 09/21/2021 10:45 AM EDT Problem: Irritated seborrheic keratoses Alicia follows up after last being seen in June. She is some additional sites she like to haveremoved, and states that a number of the sites treated with LN2 did not resolve. Physical examination reveals a pleasant 65-year-old woman who has good resolution of the largest site removed with shave biopsy back in June. However 1 site on the left lower abdomen Recur after liquid nitrogen therapy. Additionally, sites on the submammary breasts are still present for some of gone many seborrheic keratoses removed from this area remain bilaterally. She has a nevus is new on the right dorsal foot. Assessment plan: Seborrheic keratoses 1. We will schedule a 30-minute appointment for removal of these at the patient's convenience 2. Patient knows that this will be an [id number] expense CC: Samantha Escalante APRN documented in this encounter Plan of Treatment Not on file documented as of this encounter Visit Diagnoses Diagnosis Dermatofibroma Benign neoplasm of skin, site unspecified Seborrheic keratoses Seborrheic keratosis, inflamed Inflamed seborrheic keratosis documented in this encounter Care Teams Bleach Mixer Relationship Specialty Start Date End Date Samantha Escalante APRN [address] [place] [address] [address] [facility] [address] [place] [address] PCP - General Family Medicine 10/06/17 documented as of this encounter
--- OUTSIDE RECORDS SUMMARY | 2023-11-25 01:16 | XMS_ITS | Encounter Summary ---
Author Organization [facility] Address [facility] [place] [address] Care Team Providers Care Product Promoter Retail Pet Name Role Phone Samantha Escalante APRN Primary Care Provider Reason for Visit * Auth/Cert (Routine) Specialty Diagnoses / Procedures Referred By Wai del castillo Referred To Contact Diagnoses BILATERAL SI JOINT DYSFUNCTION Procedures PRO ARTHRODESIS SACROILIAC JOINT PERCUTANEOUS Jacinto Apodaca MD [address] [facility] [address] [place] [address] Referral ID Status Reason Start Date Expiration Date Visits Re quested Visits Authorized [id number] 10/26/2022 1 1 Encounter Details Date Type Department Care Team (Late st Contact Info) Description 11/17/2022 11:55 AM EDT Ancillary Procedure Radiology Xray at [facility] [address] [place] [id number] Social History Tobacco Use Types Packs/Day Years Used Date Smoking Tobacco: Former Cigarettes 1 45 1 973 - 2017 Smokeless Tobacco: Never Alcohol Use Standard Drinks/Week Comments Never 0 (1 standard drink = 0.6 oz pur e alcohol) [facility] Inpatient Questions Answer Date Recorded [...] Procedure Name Priority Date/Time Associated Diagnosis Comments XR O-ARM NO RAD - OR USE Routine 11/17/2022 2:00 PM EDT documented in this encounter Results * XR O-Arm No Rad <1Hr - OR Use (11/17/2022 2:00 PM EDT) Narrative Dicom, Auditing User - 11/17/2022 2:00 PM EDT This exam is auto-finalizing. No interpretation was done. Jacinto Apodaca MD IMG FLUORO ORDERABLE S documented in this encounter Visit Diagnoses Not on filedocumented in this encounter Care Teams Product Promoter Retail Pet Relationship Specialty Start Date End Date Samantha Escalante APRN [address] [facility] [address] [place] [address] PCP - General Family Medicine 10/06/17 documented as of this encounter
--- OUTSIDE RECORDS SUMMARY | 2023-11-25 01:16 | XMS_ITS | Encounter Summary ---
Author Organization [facility] [place] [address] Care Team Providers Care Boiler Inspector Name Role Phone Samantha Escalante APRN Primary Care Provider [phone] Reason for Visit * Auth/Cert (Routine) Specialty Diagnoses / Procedures Referred By Wai del castillo Referred To Contact Diagnoses BILATERAL SI JOINT DYSFUNCTION Procedures PRO ARTHRODESIS SACROILIAC JOINT PERCUTANEOUS Jacinto Apodaca MD [address] [facility] [place] [address] Referral ID Status Reason Start Date Expiration Date Visits Re quested Visits Authorized [id number] 10/26/2022 1 1 Encounter Details Date Type Department Care Team (Late st Contact Info) Description 11/17/2022 12:48 PM EDT Anesthesia Event Operating Room Sheela Holman Pr[address] [place] [id number] Ming Torres CRNA [facility] [place] [address] Anesthesia Record Procedure Summary Procedure Name Responsible Anesthesiologist Anesthesia Start Time Anesthesia Stop Time ARTHRODESIS,SACROIL IAC JOINT FUSION (WRVU 12.13) (Bilateral) Ming Torres CRNA 11/17/22 1248 11/17/22 1419 Events Date Time Event Comment 11/17/2022 1238 1248 AN Verify 1248 Start 1248 An Start Data 1253 An Induction 1255 An Intubation 1255 Anesthesia Ready 1413 Extubation/LMA Out 1414 an stop data 1419 Recovery or ICU Handoff Naila ent care was transferred to the destination unit staff after review of the patient's medical history, current anesthetic/surgical status and plan, according to the Provider Handoff Checklist. 1419 Stop Meds Name Total Midazolam 3 mg fentaNYL 100 mcg IV Lidocaine 50 mg Propofol 150 mg Propofol INF 189.5 mg Rocuronium 50 mg Ondansetron 8 mg Dexamethasone 10 mg HYDROmorphone 0.5 mg ceFAZolin (Ancef) 2 g vial a ttach to sodium chloride 0.9% 100 mL Mini-Bag Plus 2 g PHENYLephrine INF 1,250 mcg Sugammadex 200 mg Lactated Ringers 0 mL * Agents Name O2 Sevoflurane (et) * Blood No blood administrations on file. Lines, Drains, and Airways Type Details Placement Removal Incision 11/17/22; 1308; Bilateral; sacral spine 11/17/22 1308 by Ana Starks RN Incision 08/05/21; 1503; lowe r, Right, posterior; lumbar spine; dressing dermabond, benzoin and papertape; LDA not present upon assessment; 11/17/22; 1349 08/05/21 1503 by Jama Carreon RN 11/17/22 1349 by Ana Starks, NUBIA Incision 06/21/22; 1335; midline; lower quadrant; laparoscopic punctures (specify); 3 trocar sites; LDA not present upon assessment; 11/17/22; 1349 06/21/22 1335 by Juan Diego Lucia RN 11/17/22 1349 by Ana Starks, RN (RETIRED) Peripheral IV Line - Single Lumen 11/17/22; 1201; basilic vein (medial side of arm), left; [id number] catheter system; Anatomical Landmarks; 20 gauge; ES; 11/17/22; 1611 11/17/22 1201 by Britney Veliz RN 11/17/22 1611 by Delbert Hodges, RN ETT Mask Ventilation: Adjunct (2); ETT Type: Cuffed; ETT Size: 7.5 mm; Indirect: Video; Notes: Asleep, Pre-O2, RSI, Stylette; Attempts: 1; Laryngoscopy Grade: 1; ETT Placement Verified By: Capnometry, Visual; Secured at Teeth: 21 cm; Inserted by: AZUL Torres; Removal Date: 11/17/22; Removal Time: 1413 11/17/22 1300 by Ming Torres CRNA 11/17/22 1413 by Ming Torres CRNA documented in this encounter Social History Tobacco Use Types Packs/Day Years Used Date Smoking Tobacco: Former Cigarettes 1 45 2017 Smokeless Tobacco: Never Alcohol Use Standard Drinks/Week Comments Never 0 (1 standard drink = 0.6 oz pur e alcohol) DH IPV Inpatient Questions Answer Date Recorded Does [...] on file documented as of this encounter OR Notes * Anesthesia Postprocedure Evaluation - Ming Torres CRNA - 11/17/2022 2:19 PM EDT Department of Anesthesiology Post-procedure Note Patient: Lynda Pedersen Procedure Summary Date: 11/17/22 Room / Location: [facility] OR MAIN OR Anesthesia Start: 1248 Anesthesia Stop: 1419 Procedures: ARTHRODESIS,SACROILIAC JOINT FUSION (WRVU 12.13) (Bilateral) MODIFIER [employer] - NAVIGATION / STEALTH (Bilateral) MODIFIER MEDTRONIC - RIALTO (Bilateral) Diagnosis: (BILATERAL SI JOINT DYSFUNCTION) Surgeons: Jacinto Apodaca MD Responsible Provider: Ming Torres CRNA Anesthesia Type: general ASA Status: 3 All Anesthesia Providers: AZUL Independent: Ming Torres CRNA Vitals Value Taken Time BP 173/83 11/17/22 1417 Temp 36 ??C (96.8 ??F) 11/17/22 1415 Pulse 84 11/17/22 1417 Resp 12 11/17/22 1417 SpO2 97 % 11/17/22 1417 Pain Level 0 11/17/22 1417 Patient Location: PACU Level of Consciousness: Conscious but Sleepy Pain Management: Satisfactory Analgesia PONV: None Cardiovascular Status: At Baseline Respiratory Status: At Baseline Postoperative Fluid Status: Intravascular EUvolemia Possible Anesthetic Complications: NONE apparent at time of evaluation Final Primary Anesthesia Type: General (The anesthetic type performed was the same as planned.) Comments: * Anesthesia Preprocedure Evaluation - Ming Torres CRNA - 11/16/2022 8:16 AM EDT Pre-Anesthesia Evaluation for: Lynda Pedersen a 66 y.o. female. Procedure(s): ARTHRODESIS,SACROILIAC JOINT FUSION (WRVU 12.) MODIFIER MEDTRONIC - NAVIGATION / STEALTH MODIFIER MEDTRONIC - RIALTO Patient Active Problem List Diagnosis Date Noted Complex ovarian cyst 06/21/2022 Trochanteric bursitis of right hip 06/11/2022 Prediabetes 06/11/2022 Obesity 06/11/2022 Lumbar disc herniation with radiculopathy 06/11/2022 Iron deficiency anemia 06/11/2022 Hyperlipidemia 06/11/2022 Gastroesophageal reflux 06/11/2022 Fatty liver disease, nonalcoholic 06/11/2022 Elevated BP without diagnosis of hypertension 06/11/2022 Chronic low back pain 06/11/2022 Barretts syndrome 06/11/2022 Seborrheic keratosis 04/14/2018 Past Medical History: Diagnosis Date Anemia Barretts syndrome Chronic low back pain Elevated BP without diagnosis of hypertension Fatty liver disease, nonalcoholic Fatty liver disease, nonalcoholic 06/11/2022 Gastroesophageal reflux H. pylori infection 02/2022 Hyperlipidemia Iron deficiency anemia Iron deficiency anemia 06/11/2022 Lumbar disc herniation with radiculopathy Obesity Prediabetes Serrated adenoma of colon Trigger finger of left hand Trochanteric bursitis of right hip Past Surgical History: Procedure Laterality Date APPENDECTOMY CATARACT REMOVAL SECTION x1 COLONOSCOPY CT GUIDED INJECTION SI JOINT 07/13/2022 CT Guided Injection SI Joint 07/13/2022 Ming Maki MD [facility] RAD CT SCAN FINGER TRIGGER RELEASE L and R thumbs HYSTERECTOMY laparoscopic with LSO for endometriosis LIPOMA RESECTION LUMBAR DISC SURGERY PRO LAMINEC/FACETECT/FORAMIN, LUMBAR 1 SEG Right 08/05/2021 LAMINECTOMY, FACETECTOMY & FORAMINOTOMY,LUMBAR, ONE LEVEL (WRVU 15.37) performed by Jacinto Apodaca MD at [facility] MAIN OR PRO LAP, RMV ADNEXAL STRUCTURE N/A 06/21/2022 LAPAROSCOPY, REMOVAL OF ADNEXA (WRVU 11.35) performed by Tonia Eli MD at [facility] MAIN OR TONSILLECTOMY AND ADENOIDECTOMY UPPER GASTROINTESTINAL ENDOSCOPY Social History Tobacco Use Smoking status: Former Smokeless tobacco: Never Substance Use Topics Alcohol use: Never Social History Substance and Sexual Activity Drug Use Never Allergies Allergen Reactions Omeprazole Other reaction(s): Rash, itching all over Vqrhawp-Hzv-Vcr Reductase Inhibitors Other reaction(s): MUSCLE ACHES Codeine Phosphate CIS - Nausea/Vomiting Penicillins CIS - Rash PAT Penicillin Allergy Risk Assessment 06/11/2022: Low risk penicillin allergy. OK to receive full dose of cefazolin, cefuroxime, or any 3rd or 4th+ generation cephalosporin. PAT Clinic PACKAGING LINE ATTENDANT to place Allergy referral for formal penicillin allergy evaluation. Patient open to a phone consult from the allergy clinic. Esomeprazole Metronidazole Other reaction(s): DIARRHEA Pantoprazole Vancomycin Analogues Other (See Comments) Pt unable to tolerate 1g over 60 min. -scalp pruritis and minor erythema to chest and face Medications: MAR and/or home medications have been reviewed. Physical Exam: Preprocedure Vitals Current as of 11/16/22 0816 No BP, pulse, respiration, SpO2, or temperature recorded. Height: Weight: BMI: IBW: 38.2 kg (84 lb 2.6 oz) Airway Assessment: Mallampati: II TM distance: >3 FB Neck ROM: full Cardiovascular Assessment: system normal Pulmonary Assessment: unlabored breathing Dental Assessment: (+) upper dentures Misc Assessment: IV access: Peripheral line Last Filed Perioperative Cognitive Screening Value Time User AD8 Total Score: 4 06/11/2022 1:00 PM Esteban Cramer RN AD8 Informant: Other Informant 06/11/2022 1:00 PM Esteban Cramer RN CFS Frailty Score: 2 06/11/2022 1:00 PM Del Giudice, Esteban P, RN Anesthesia Plan: ASA 3 general, with a(n) intravenous induction Pt reports poorly controlled GERD, will awaken at night with bile on pillow. (+) HOLDEN confirmed by sleep study in July, awaiting follow up. Region - Other Informed Consent: Anesthetic plan and risks discussed with patient. Anesthesia Screening documented in this encounter Plan of Treatment Not on file documented as of this encounter Visit Diagnoses Not on filedocumented in this encounter Administered Medications Inactive Administered Medications - up to 3 most recent administrations Medication Order MAR Action Action Date Dose Rate Site ceFAZolin (Ancef) 2 g vial attach to sodium chloride 0.9% 100 mL Mini-Bag Plus 2 g, Intravenous, ONCE, 1 dose, On Tue11/17/22 at 1145, Administer over 30 Minutes, To be administered upon arrival to the OR within one hour prior to incision., Day of Surgery (Day of Procedure), Indication for (Active or Suspected): Prophylaxis New Bag 11/17/2022 1:00 PM EDT 2 g dexAMETHasone (Decadron) injection Intravenous, PRN, Starting on Tue11/17/22 at 1253, Until Tue11/17/22 at 1419, Anesthesia Intra-op, Routine Given 11/17/2022 12:53 PM EDT 10 mg fentaNYL (pf) (50 mcg/mL) multi-dose injection Intravenous, PRN, Starting on Tue11/17/22 at 1251, Until Tue11/17/22 at 1419, Anesthesia Intra-op, Routine Given 11/17/2022 12:51 PM EDT 50 mcg Given 11/17/2022 12:48 PM EDT 50 mcg HYDROmorphone (Dilaudid) (2 mg/mL) multi-dose injection solution Intravenous, PRN, Starting on Tue11/17/22 at 1307, Until Tue11/17/22 at 1419, Anesthesia Intra-op, Routine Given 11/17/2022 1:07 PM EDT 0.5 mg lactated ringers infusion Intravenous, CONTINUOUS PRN, Starting on Tue11/17/22 at 1244, Until Tue11/17/22 at 1419, Anesthesia Intra-op New Bag 11/17/2022 12:44 PM EDT lidocaine (pf) (Xylocaine) (20 mg/mL) 2% injection syringe Intravenous, PRN, Starting on Tue11/17/22 at 1253, Until Tue11/17/22 at 1419, Anesthesia Intra-op, Routine Given 11/17/2022 12:53 PM EDT 50 mg midazolam (pf) (Versed) (1 mg/mL) multi-dose injection Intravenous, PRN, Starting on Tue11/17/22 at 1247, Until Tue11/17/22 at 1419, Anesthesia Intra-op, Routine Given 11/17/2022 12:48 PM EDT 1 mg Given 11/17/2022 12:47 PM EDT 2 mg ondansetron (pf) (Zofran) (2 mg/mL) injection Intravenous, PRN, Starting on Tue11/17/22 at 1350, Until Tue11/17/22 at 1419, Anesthesia Intra-op, Routine Given 11/17/2022 1:50 PM EDT 8 mg PHENYLephrine (Phi-Synephrine) (80 mcg/mL) in sodium chloride 0.9% 250 mL infusion Intravenous, CONTINUOUS PRN, Starting on Tue11/17/22 at 1300, Until Tue11/17/22 at 1419, Anesthesia Intra-op, Routine Rate/Dose Change 11/17/2022 1:18 PM EDT 20 mcg/min 15 mL/hr New Bag 11/17/2022 1:00 PM EDT 25 mcg/min 18.75 mL/hr propofoL (Diprivan) (10 mg/mL) infusion Intravenous, CONTINUOUS PRN, Starting on Tue11/17/22 at 1300, Until Tue11/17/22 at 1419, Anesthesia Intra-op, Routine New Bag 11/17/2022 1:00 PM EDT 50 mcg/kg/min 22.74 mL/hr propofoL (Diprivan) 10 mg/mL bolus injection (Anesthesia) Intravenous, PRN, Starting on Tue11/17/22 at 1253, Until Tue11/17/22 at 1419, Anesthesia Intra-op Given 11/17/2022 12:53 PM EDT 150 mg rocuronium (Zemuron) 10 mg/mL injection Intravenous, PRN, Starting on Tue11/17/22 at 1253, Until Tue11/17/22 at 1419, Anesthesia Intra-op, Routine Given 11/17/2022 12:53 PM EDT 50 mg sugammadex (Bridion) 100 mg/mL injection Intravenous, PRN, Starting on Tue11/17/22 at 1408, Until Tue11/17/22 at 1419, Anesthesia Intra-op, Routine Given 11/17/2022 2:08 PM EDT 200 mg documented in this encounter Care Teams Boiler Inspector Relationship Specialty Start Date End Date Samantha Escalante APRN [address] [place] [address] [address] [facility] [address] [place] [address] PCP - General Family Medicine 10/06/17 documented as of this encounter
--- OUTSIDE RECORDS SUMMARY | 2023-11-25 01:16 | XMS_ITS | Encounter Summary ---
[facility] [address] Care Team Providers Care Boiler Repair Supervisor Name Role Phone Samantha Escalante APRN Primary Care Provider [phone] Encounter Details Date Type Department Care Team (Latest Contact Info) Description 06/11/2022 Travel Social History Tobacco Use Types Packs/Day Years Used Date Smoking Tobacco: Former Smokeless Tobacco: Never Alcohol Use Standard Drinks/Week Comments Never 0 (1 standard drink = 0.6 oz pur e alcohol) Sex and Gender Information Value Date Recorded Sex Assigned at Not on file Gender Identity Not on file Sexual Orientation Not on file documented as of this encounter Plan of Treatment Not on file documented as of this encounter Visit Diagnoses Not on filedocumented in this encounter Care Teams Boiler Repair Supervisor Relationship Specialty Start Date End Date Samantha Escalante APRN [address] [place] [address] PCP - General Family Medicine 10/06/17 documented as of this encounter
--- OUTSIDE RECORDS SUMMARY | 2023-11-25 01:16 | XMS_ITS | Encounter Summary ---
Author Organization [facility] [place] [address] Care Team Providers Care Button Sewer Hand Name Role Phone Samantha Escalante APRN Primary Care Provider Reason for Referral * Consultation (Urgent) - Closed Specialty Diagnoses / Procedures Referred By Wai del castillo Referred To Contact Gynecology Oncology Diagnoses Adnexal mass Silvana Moon MD [facility] [address] OBSTETRICS & [place] [address] Tonia Eli MD [facility] [place] [address] Referral ID Status Reason Start Date Expiration Date V isits Requested Visits Authorized [id number] Closed Consult, Test & Treat 05/24/2022 05/24/2023 1 1 Reason for Visit * Reason Comments Establish Care Adnexal mass * Consultation (Routine) - Closed Specialty Diagnoses / Procedures Referred By Contyusuf t Referred To Contact Obstetrics and Gynecology Diagnoses Cyst of right ovary Samantha Escalante APRN [address] [place] [address] [facility] Occupational Therapy Assistant [address] [place] [address] Referral ID Status Reason Start Date Expiration Date V isits Requested Visits Authorized [id number] Closed Consult, Test & Treat PCP Updated and/or Approved 04/19/2022 04/19/2023 6 6 Encounter Details Date Type Department Care Team (Late st Contact Info) Description 05/24/2022 3:20 PM EST Office Visit Obstetrics [place] [phone] Silvana Moon MD [facility] DR OBSTETRICS [place] [address] Adnexal mass (Primary Dx); S/P laparoscopic hysterectomy; S/P left oophorectomy Social History Tobacco Use Types Packs/Day Years Used Date Smoking Tobacco: Former Smokeless Tobacco: Never Tobacco Cessation:Counseling Given: Not Answered Sex and Gender Information Value Date Recorded Sex Assigned at Not on file Gender Identity Not on file Sexual Orientation Not on file documented as of this encounter Last Filed Vital Signs Vital Sign Reading Time Taken Comments Blood Pressure 122/73 05/24/2022 3:30 PM EST Pulse 81 05/24/2022 3:30 PM EST Temperature 36.1 ??C (97 ??F) 05/24/2022 3:30 PM EST Respiratory Rate 20 05/24/2022 3:30 PM EST Oxygen Saturation 97% 05/24/2022 3:30 PM EST Inhaled Oxygen Concentration - - Weight 74.8 kg (165 lb) 05/24/2022 3:30 PM EST Height 148.6 cm (4' 10.5) 05/24/2022 3:30 PM ES T Body Mass Index 33.9 05/24/2022 3:30 PM EST documented in this encounter Progress Notes * Silvana Moon MD - 05/24/2022 3:20 PM EST Images from the original note were not included. Gynecology Clinic Visit Name: Lynda Pedersen Referring provider: Samantha Escalante APRN [address] [facility] [address] [address] Chief Complaint Patient presents with ??? Establish Care Adnexal mass HPI: Lynda Hummel is a 66 y.o. para 3 postmenopausal female presenting in referral with a complex adnexal mass. Pt presents with her granddaughter. 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 She was seen by her PCP at [facility] for a routine visit 04/2022 and mentioned lumbar MRI from the year prior 04/2021 that showed partially includedcystic septated findings in the right side of the pelvis noted, probably ovarian origin which had never been followed up on. She asked her PCP to order a TVUS which showed a complex 9 cm multi septated right adnexal cyst. No free fluid. She was seen by her lens edge grinder machine Dr. Plascencia ([facility]) who ordered blood work (on granddaughter's phone): Ca 125 7.2, AFP 6.4, beta hCG 6.2 and she was s ubsequently referred here for further evaluation and management. Of note, she is s/p laparoscopic hysterectomy and LSO at the age of 24 for endometriosis/endometrioma ([place], [place]). She recently underwent L5-S1 laminectomy 07/2021. She reports chronic issues with her stomach and colon, dx Barretts esophagus and GERD. She notes a history of iron deficiency anemia in the past. Her last colonoscopy was 2 months ago. States they took out 24 polyps, 4 of which were concerning for precancer. She has a follow up visit this Spring. Currently she reports abdominal bloating x1 year and RUQ aching, worse after eating. She was recently treated for H.pylori as well as pneumonia, thought she had developed a yeast infection but was told her swabs came back negative for vaginitis. Vaginal itching improved but does not persistent vaginal pressure. She denies unexpected weight loss or decreased appetite. No early satiety. If anything, the anxiety makes her eat more. Her BMs improved after she was treated for the H.pylori (had been loose). Had a negative test of cure about 2 months ago. She reports some increased urinary frequency, but denies dysuria, hematuria or urgency. Urine smells strong. Her PCP did a UA which was negative. Denies vaginal bleeding. live in caregiver history: Gender identity: female Pronouns: she/hers Menarche: 13yo Menses: monthly lasting 7 days, fairly heavy at first, some cramping Menopause: hysterectomy age 24, vasomotor sx started late 30s and lasted 10 years Pregnancies: , x2, last was CS (had first baby at age 15) HPV vaccination: no Pap hx/tx: no h/o abnormal STI: HSV LAYER UP surgeries: s/p hysterectomy, bilateral salpingectomy, left oophorectomy for endometriosis with endometrioma ([facility] [place]) Sexually active: not currently Other hormone exposure: no UI sx: as above FHx cancer: Sister cervical cancer Daughter thyroid ca Brother unsure primary Niece cervical vs ovarian cancer, breast cancer Fhx PCOS, endometriosis Mammogram: has one tomorrow, getting yearly due to increased breast density Colonoscopy: see above DEXA: has one tomorrow Review of Systems - as noted in HPI Past Medical History: Diagnosis Date ??? Barretts syndrome ??? Chronic low back pain ??? Elevated BP without diagnosis of hypertension ??? Fatty liver disease, nonalcoholic ??? Gastroesophageal reflux ??? H. pylori infection 02/2022 ??? Hyperlipidemia ??? Iron deficiency anemia ??? Lumbar disc herniation with radiculopathy ??? Obesity ??? Prediabetes ??? Serrated adenoma of colon ??? Trigger finger of left hand ??? Trochanteric bursitis of right hip Past Surgical History: Procedure Laterality Date ??? APPENDECTOMY ??? CATARACT REMOVAL ??? SECTION x1 ??? COLONOSCOPY ??? FINGER TRIGGER RELEASE L and R thumbs ??? HYSTERECTOMY laparoscopic with LSO for endometriosis ??? LIPOMA RESECTION ??? LUMBAR DISC SURGERY ??? PRO LAMINEC/FACETECT/FORAMIN, LUMBAR 1 SEG Right 08/05/2021 LAMINECTOMY, FACETECTOMY & FORAMINOTOMY,LUMBAR, ONE LEVEL (WRVU 15.37) performed by Jacinto Apodaca MD at [facility] MAIN OR ??? TONSILLECTOMY AND ADENOIDECTOMY ??? UPPER GASTROINTESTINAL ENDOSCOPY No family history on file. Social History Socioeconomic History ??? Marital status: Spouse name: Not on file ??? Number of children: Not on file ??? Years of education: Not on file ??? Highest education level: Not on file Occupational History ??? Not on file Tobacco Use ??? Smoking status: Former ??? Smokeless tobacco: Never Vaping Use ??? Vaping Use: Never used Substance and Sexual Activity ??? Alcohol use: Not on file ??? Drug use: Not on file ??? Sexual activity: Not on file Other Topics Concern ??? Not on file Social History Narrative ??? Not on file Social Determinants of Health Financial Resource Strain: Not on file Food Insecurity: Not on file Transportation Needs: Not on file Physical Activity: Not on file Housing Stability: Not on file Objective: BP 122/73 Pulse 81 Temp 36.1 ??C (97 ??F) Resp 20 Ht 148.6 cm (4' 10.5) Wt 74.8 kg (165 lb) SpO2 97% BMI 33.90 kg/m?? Body mass index is 33.9 kg/m??. General: appears intermittently tearful, anxious Skin: no rashes Lungs: clear to auscultation bilaterally, no wheezes or rales Heart: RRR, normal S1/S2, no murmurs/rubs/gallops Abdomen: prior L/S scars noted, soft, obese, non-tender, no masses palpated Pelvic: moderate vulvovaginal atrophy. Cervix appears multiparous without lesion. Scant thin white discharge. Bimanual notable for surgically absent uterus. Smooth mobile mass in right adnexa, mildlytender to palpation. Left adnexa not palpated. Rectovaginal exam deferred. Labs: 01/07/22 H/H 12.5/41.2 Imaging: OSH TVUS 04/15/22 Assessment/Plan: Lynda Pedersen is a 66 y.o. woman presenting with an incidentally found 9cm complex right adnexal mass. The patient was counseled on her diagnosis of a complex adnexal mass and possible etiologies including a benign, borderline or malignant process. Given she is symptomatic and the complexity of the mass, surgical evaluation is warranted which will provide a definitive diagnosis. Estephanie and I discussed that this procedure would best be performed by a gynecologic oncologist in the event staging procedures needed to be performed. Urgent referral placed. Reviewed s/s torsion and encouraged patient to call with any new or worsening symptoms while awaiting surgical consultation. Pt discussed with Dr. Lopez, attending live in caregiver. Silvana Moon MD PGY4 05/24/2022 * [employer] - 05/24/2022 3:20 PM EST Examination chaperoned by DARIANA James. * Britney Lopez MD - 05/24/2022 3:20 PM EST The case was discussed in person at the time of the visit or immediately after the visit. The assessment and plan were formulated in discussion with me and I agree with them as documented. I have reviewed the history, physical exam, assessment and plan with the resident. Britney Lopez MD documented in this encounter Miscellaneous Notes * Addendum Note - Britney Lopez MD - 05/24/2022 3:20 PM ESTAddended by: BRITNEY LOPEZ on: 05/28/2022 10:19 AM Modules accepted: Level of Service documented in this encounter Plan of Treatment Scheduled Referrals Name Type Priority Associated Diagnoses Order Schedule Referral to Gynecologic Oncology Outpatient Referral Urgent Adnexal mass Ordered: 05/24/2022 documented as of this encounter Visit Diagnoses Diagnosis Adnexal mass- Primary Other specified symptom associated with female genital organs S/P laparoscopic hysterectomy Acquired absence of both cervix and uterus S/P left oophorectomy Acquired absence of organ, genital organs documented in this encounter Care Teams Button Sewer Hand Relationship Specialty Start Date End Date Ava SamanthaCHACE barrios [address] [place] [address] PCP - General Family Medicine 10/06/17 documented as of this encounter
--- OUTSIDE RECORDS SUMMARY | 2023-11-25 01:16 | XMS_ITS | Encounter Summary ---
Author Organization [facility] [place] [address] Care Team Providers Care Novelty Chain Maker Name Role Phone Samantha Escalante APRN Primary Care Provider [phone] Reason for Visit * Auth/Cert (Routine) Specialty Diagnoses / Procedures Referred By Wai del castillo Referred To Contact Diagnoses BILATERAL SI JOINT DYSFUNCTION Procedures PRO ARTHRODESIS SACROILIAC JOINT PERCUTANEOUS Jacinto Apodaca MD [address] [place] [address] Referral ID Status Reason Start Date Expiration Date Visits Re quested Visits Authorized [id number] 10/26/2022 1 1 Encounter Details Date Type Department Care Team (Late st Contact Info) Description 11/17/2022 1:40 PM EDT - 11/17/2022 3:40 PM EDT Surgery Operating Room [facility] Ac[facility] [address] [place] [address] Jacinto Apodaca MD [address] [place] [address] ARTHRODESIS,SACROILIAC JOINT FUSION (WRVU 12.13) Social History Tobacco Use Types Packs/Day Years [...] Sign Reading Time Taken Comments Blood Pressure 129/60 11/17/2022 3:37 PM EDT Pulse 88 11/17/2022 3:37 PM EDT Temperature 36 ??C (96.8 ??F) 11/17/2022 2:15 PM EDT Respiratory Rate 22 11/17/2022 3:37 PM EDT Oxygen Saturation 94% 11/17/2022 3:37 PM EDT Inhaled Oxygen Concentration - - Weight - - Height - - Body Mass Index - - documented in this encounter Discharge Instructions * Patient Instructions* Denny Fuentes PA - 11/17/2022 12:24 PM EDT PAIN: Keep ice to the surgical site as much as possible for pain relief and to minimize swelling for 48 hours, then as needed intermitently. You were given a prescription for pain medication prior to surgery: Take this medication as directed. As pain begins to resolve, taper down your usage. You may take Tylenol or Ibuprofen if tolerated, as needed for pain in addition to your prescribed medications, as directed by your provider. If pain persists or worsens over the next few days you should contact the office. FOLLOW UP APPOINTMENTS: You will have a post-operative follow up appointment with your surgeon/physician???s tax assistant scheduled. If you have any questions, please call . MEDICATIONS: Take your medicine at the time your doctor ordered. Keep a list of your medicines, vitamins, and herbal supplement you take. Keep this list with you atall times. Show it to your caregiver at every visit. Keep the list up-to-date. Ask your caregiver or pharmacist to write an explanation of each medicine you are taking. This should include: why you are taking it, possible side effects, best time of day to take it, what foods totake the medication with or foods to avoid, and when to stop taking it. Only take cujz-khy-krxvwrx or prescription medicine for pain, discomfort or fever as directed by your caregiver. Consult your doctor or pharmacist with any questions. NEW MEDICATIONS AT DISCHARGE: []None, []Given prescriptions in office preoperatively OR: Medication Dose/Route/ Frequency Prescription given? Reason for medication Medscape monograph discussed []Yes []No []Yes []No []Yes []No []Yes []No DIET: Resume your normal diet as tolerated. Be sure to drink plenty of fluids, particularly water. Eat whole grain cereals, fruits and fruit juices to combat constipation sometimes cause by pain medication. You may take Colace 100 mg, twice a day, as a stool softener if tolerated. Contact your provider if constipation develops. ACTIVITY: No impact activities until cleared by the provider to do so. You may walk to the bathroom and kitchen as needed. Sexual activity can be resumed a few weeks after surgery. POST ANESTHESIA/SEDATION: You have received medication for sedation and comfort during your procedure. Because these have notcompletely left your system, please observe the following precautions: Plan to be mostly sedentary for the rest of the day. DO NOT drive or operate machinery until advised by your surgeon/PA. Avoid alcohol for the next 24 hours or while using narcotic pain medication. Do not make any important personal or business decisions today. BANDAGE/SHOWERING: After 3 days, you may shower: Do not use soap on incision. Do not rub or scrub incision. Do not soak in a bath or hot tub or immerse incision. Gently pat the surgical site dry. Do not remove papertape (this will be done in office at first post-op checkup). CALL YOUR SURGEON IF: You develop worsening pain. You notice any unusual redness, swelling, or drainage from the incisions. There is persistent bleeding from an incision. You notice a foul smell coming from the wound. You develop an oral temperature above 101 degrees F (you may have a milder temperature increase forthree to five days after surgery). You are unable to drink/keep fluids down due to nausea. Any other worrisome condition, questions or concerns. SMOKING CESSATION INFORMATION: [place] QUITLINE: [place] QUITLINE: www.[email or web address].Kidaptive If you smoke, it is recommended that you stop now! MAKE SURE YOU: Understand these instructions. Will seek medical care if you are feeling poor, or get worse. Will call the surgeon???s office with any questions or concerns at : [phone] Nursing information only: Original document to medical records Copy given to patient at discharge Belongings/Valuables returned to patient All questions answered IV and hospital equipment removed from patient as appropriate The above information has been presented or demonstrated. I/we have had the opportunity to ask questions. I/we fully understand the instructions given. I/we have received a copy of this form. documented in this encounter Medications at Time of Discharge Medication Sig Dispensed Refills Start Date End Date diclofenac (Voltaren) 1 % Gel Apply topically. traMADoL (Ultram) 50 mg tablet Take 1 tablet by mouth every 6 hours as needed for Pain. 20 tablet 11/17/2022 mometasone-formoterol (Dulera) 50-5 mcg/actuation HFA Aerosol Inhaler Inhale 2 puffs into the lungs 2 times daily. levalbuteroL (XOPENEX HFA) 45 mcg/actuation HFA Aerosol Inhaler Inhale 1-2 puffs into the lungs every 4 hours as needed. ibuprofen (Advil) 600 mg Tablet TAKE ONE TABLET BY MOUTH THREE TIMES A DAY NEEDED FOR PAIN 01/05/2022 clotrimazole (LOTRIMIN) 1 % Cream APPLY 1 APPLIATION TWICE A DAY NEEDED FOR RASH UNDER BREASTS. USE FOR 2-4 WEEKS 01/06/2022 famotidine (Pepcid) 40 mg Tablet Take 40 mg by mouth every morning. acetaminophen (Tylenol) 500 mg Tablet Take 1,000 mg by mouth every 6 hours as needed for Pain. documented as of this encounter Progress Notes * Delbert Hodges RN - 11/17/2022 3:57 PM EDT 1535 VSS on RA. Tolerating PO. Reporting pain is tolerable, declining medication. Denies numbness/tingling in extremities. Ambulated to and from bathroom with steady gait. Able to void without difficulty. 1555 IV removed, site asymptomatic, CDD to site. Questions answered. 1602 Transported out of facility with steady gait, NAD. documented in this encounter H&P Notes * Denny Fuentes PA - 11/17/2022 12:24 PM EDT Patient Name: Lynda Pedersen Patient Age: 66 y.o. Birthdate: 1955 Admit date: 11/17/2022 Attending Physician: Jacinto Apodaca MD The patient's history and physical exam have been reviewed and completed. There has been no interval change from that of the pre-operative history and physical exam done within the last 30 days. documented in this encounter Miscellaneous Notes * Op Note - Jacinto Apodaca MD - 11/17/2022 1:08 PM EDT [facility] [place] [address] Patient Name: Lynda Pedersen : [id number] MR#: [id number] Case Date: 11/17/2022 Case Scheduled Time: 1340 Surgeon: Surgeon(s) and Role: * Jacinto Apodaca MD - Primary * Denny Fuentes PA - Physician Rehabilitation Services Manager Preoperative diagnosis: BILATERAL SI JOINT DYSFUNCTION Postoperative diagnosis: BILATERAL SI JOINT DYSFUNCTION Actual procedure: Bilateral SI joint instrumented fusion using Rosser screws, locally harvested bone, and bone morphogenic protein. Computer-assisted volumetric stereotactic image guidance for placement of the screws and access to the joint. Local harvest of autologous bone. Intraoperative fluoroscopy. Intraoperative CT scan. Anesthesia: General Estimated Blood Loss: Minimal Specimens removed during surgery: None Drains: * No LDAs found * Surgical Closure: Primary Closure - skin incision is completely closed without any wires, ivone, drains or other devices Disposition: awakened from anesthesia, extubated and taken to the recovery room in a stable condition, having suffered no apparent untoward event. Condition: doing well without problems Complications: None (Please see the Surgical Encounter Summary for any Implant and Specimen details pertinent to this patient.) Findings: Excellent placement of all 4 screws and both post holes was confirmed with post implant CT scan. There were no complications or problems. There was no unusual bleeding. Sponge needle countswere correct. All 4 screws were placed on the first pass. Surgical Indications: Lynda Pedersen is a 66 y.o. year old female who is suffering from symptoms thought to represent bilateral SI joint disease. The left side seems to be worse than the right, although she admits that her symptoms are bilateral. She prefers that we proceed with bilateral SI instrum ented fusion. Please refer to my office notes for details of presentation, findings on exam, and medical decision making. she has requested that we consider surgical treatment of this condition. Prosand cons, rationale and risks, options and alternatives have been thoroughly reviewed. The patient a cknowledges the extensive list of risk of this surgery as explained in no uncertain terms. The patient acknowledges that I cannot provide a guarantee regarding the success of the procedure, the avoidance of complication, or the durability of the result. There has been ample opportunity for the patient to ask and have answered any and all questions, seek any additional information needed to make an informed decision, or seek additional professional opinion if desired. Understanding all of this, she requests that we proceed with operation. Procedure Description: Lynda Pedersen was brought into the operating room and an appropriate general endotracheal anesthetic was established. she was positioned prone on the Quan table and padded appropriately. The back was prepped and draped in usual sterile fashion. We then pause to confirm her identification, site and type of surgery to be performed, available of all necessary equipment andimplants, presence of films, administration of antibiotics, and all the requisite preoperative data. Once is all been confirmed we proceeded to localize the left posterior superior iliac spine. We made our incision starting at this point and extending inferolaterally and oblique direction. Dissection subtenons tissue was carried out with monopolar electrocautery. We implanted a percutaneous pin into the left iliac crest. We then mounted the Classtingalth arc and obtained a CT scan. We imported the CTinto the ADAPTIX station and planned our surgical trajectories. We then mapped the surface projection of the right-sided SI joint screws using the image guided probe. We fashioned an incision on the r ight side in mirror image of the left incision, to allow access to these 2 points. Again we dissected through the subcutaneous tissues with the monopolar electrocautery. We implanted 2 screws on the right side using the following algorithm. First the entry point is identified visually and with Stealth. Then the awl-tip tap is utilized to create a jet pilot hole under live image guidance. Next the hole is palpated with the image guided probe to ensure no unexpected breach of cortex. Next the Rosser bone harvest device and final tap is utilized under live image guidance along the jet pilot hole trajectory. This final hole is palpated again with the image guided probe. The bone harvest device is cleaned of its bone graft which is then implanted into the central channel of the Rosser screw along withbone morphogenic sponge. The ends of the Rosser screw were capped with demineralized bone matrix ifneeded. The screw was then implanted under live image guidance. This was accomplished at both locations on the right side without any difficulty. We then created a single tap hole across the SI jointand implanted a portion of BMP sponge down this channel in a position crossing the joint. We turnedour attention to the left side and implanted 2 screws using the same algorithm, followed by a post-hole with BMP. We then obtained a post implant CT scan demonstrating excellent placement of the screws. We utilized 30 cc of a mixture of half percent Marcaine infiltrated into the gluteal musculaturesubcutaneous and subcuticular tissues, split bilaterally. We obtained meticulous hemostasis. We flushed the wounds thoroughly with antibiotic solution. We then closed the gluteal fascia with 2-0 Vicryl stitches. Next the subcutaneous tissues were closed with inverted 2-0 Vicryl stitches. Subcuticular layer was closed with inverted 3-0 Vicryl stitches. The skin edges were approximated with Dermabond benzoin and paper tape. The patient was then allowed to awaken from anesthetic and transferred tothe postanesthesia care unit in stable condition. Infection Bundle used? N/A Denny Fuentes PA-C worked under my direction for the duration of the operative session. The tax assistant adequately prepped the operative site and maintained the best possible exposure of anatomy incident to the procedure. Jacinto Apodaca MD 11/17/2022 documented in this encounter Plan of Treatment Not on file documented as of this encounter Procedures Procedure Name Priority Date/Time Associated Diagnosis Comments XR O-ARM NO RAD - OR USE Routine 11/17/2022 2:00 PM EDT MODIFIER MEDTRONIC - RIALTO 11/17/2022 12:48 PM EDT BILATERAL SI JOINT DYSFUNCTION MODIFIER MEDTRONIC - NAVIGATION / STEALTH 11/17/2022 12:48 PM EDT BILATERAL SI JOINT DYSFUNCTION Arthrodesis Sacroiliac Joint Percutaneous (55309) 11/17/2022 12:48 PM EDT BILATERAL SI JOINT DYSFUNCTION documented in this encounter Results * XR [...] MAR Action Action Date Dose Rate Site acetaminophen (Tylenol) tablet 1,000 mg 1,000 mg, Oral, ONCE, 1 dose, On Tue11/17/22 at 1145, Administer with SIP of H2O only., Day of Surgery (Day of Procedure), Routine Given 11/17/2022 12:02 PM EDT 1,000 mg acetaminophen (Tylenol) tablet 650 mg 650 mg, Oral, EVERY 4 HOURS PRN, Starting on Tue11/17/22 at 1356, Until Tue11/17/22 at 1611, Headaches, Headache with mild pain, temperature higher than 38.3 degrees celsius, For Mild Pain (1-3). Headache with mild pain, temperature higher than 38.3 degrees celsius, PACU Recovery, Routine Given 11/17/2022 3:08 PM EDT 650 mg BUpivacaine (pf) (Marcaine) (5 mg/mL) 0.5% injection PRN, Starting on Tue11/17/22 at 1355, Until Tue11/17/22 at 1608, Intra-Operative (Intra-Procedure), Routine Given 11/17/2022 1:55 PM EDT 30 mLs 19- Surgical Site famotidine (Pepcid) (10 mg/mL) injection 20 mg 20 mg, Intravenous, ONCE, 1 dose, On Tue11/17/22 at 1300, Day of Surgery (Day of Procedure) Given 11/17/2022 12:41 PM EDT 20 mg fentaNYL (pf) (50 mcg/mL) multi-dose injection 25-50 mcg 25-50 mcg, Intravenous, EVERY 5 MIN PRN, Starting on Tue11/17/22 at 1356, Until Tue11/17/22 at 1611, Pain, Give 25 mcg every 5 minutes PRN for mild to moderate pain (1-5) Give 50 mcg every 5 minutes PRN for moderate to severe pain (6-10). Hold for respiratory rate less than 10 per minute. Maximum dose 250 mcg over one hour. If multiple pain medications are ordered, start with HYDROmorphone or morphine and use fentaNYL for breakthrough pain., PACU Recovery, Routine Given 11/17/2022 2:49 PM EDT 50 mcg Given 11/17/2022 2:36 PM EDT 50 mcg lactated ringers infusion 1,000 mL, at 50 mL/hr, Intravenous, CONTINUOUS, Starting on Tue11/17/22 at 1145, Until Tue11/17/22 at 1611, Day of Surgery (Day of Procedure) New Bag 11/17/2022 12:04 PM EDT 1,000 mLs 50 mL/hr LORazepam (Ativan) (2 mg/mL) injection 0.26-1 mg 0.26-1 mg (rounded from 0.25-1 mg), Intravenous, EVERY 15 MIN PRN, Starting on Tue11/17/22 at 1442, Until Tue11/17/22 at 1611, Anxiety, muscle spasm, Please start with lowest effective dose. If medication ordered subcutaneously, do not administer more than 2 mL as a single injection., PACU Recovery, Routine Given 11/17/2022 3:00 PM EDT 0.26 mg documented in this encounter Active and Recently Administered Medications Times are shown in EDT. Scheduled Medication Order 11/15/2022 11/16/2022 11/17/2022 acetaminophen (Tylenol) tablet 1,000 mg (COMPLETED) 1,000 mg, Oral, ONCE, 1 dose, On Tue11/17/22 at 1145, Administer with SIP of H2O only., Day of Surgery (Day of Procedure), Routine 1202 (Given - Provid er: Britney Veliz RN) ceFAZolin (Ancef) 2 g vial attach to sodium chloride 0.9% 100 mL Mini-Bag Plus (COMPLETED) 2 g, Intravenous, ONCE, 1 dose, On Tue11/17/22 at 1145, Administer over 30 Minutes, To be administered upon arrival to the OR within one hour prior to incision., Day of Surgery (Day of Procedure), Indication for (Active or Suspected): Prophylaxis 1300 (New Bag - Prov ider: Ming Torres CRNA) famotidine (Pepcid) (10 mg/mL) injection 20 mg (COMPLETED) 20 mg, Intravenous, ONCE, 1 dose, On Tue11/17/22 at 1300, Day of Surgery (Day of Procedure) 1241 (Given - Provid er: Britney Veliz RN) Continuous Medication Order 11/15/2022 11/16/2022 11/17/2022 lactated ringers infusion (CANCELED) 1,000 mL, at 50 mL/hr, Intravenous, CONTINUOUS, Starting on Tue11/17/22 at 1145, Until Tue11/17/22 at 1611, Day of Surgery (Day of Procedure) 1204 (New Bag - Prov ider: Britney Veliz RN) PRN Medication Order 11/15/2022 11/16/2022 11/17/2022 acetaminophen (Tylenol) tablet 650 mg (CANCELED) 650 mg, Oral, EVERY 4 HOURS PRN, Starting on Tue11/17/22 at 1356, Until Tue11/17/22 at 1611, Headaches, Headache with mild pain, temperature higher than 38.3 degrees celsius, For Mild Pain (1-3). Headache with mild pain, temperature higher than 38.3 degrees celsius, PACU Recovery, Routine 1508 (Given - Provid er: Delbert Hodges RN) BUpivacaine (pf) (Marcaine) (5 mg/mL) 0.5% injection (CANCELED) PRN, Starting on Tue11/17/22 at 1355, Until Tue11/17/22 at 1608, Intra-Operative (Intra-Procedure), Routine 1355 (Given - Provid er: Jacinto Apodcaa MD) fentaNYL (pf) (50 mcg/mL) multi-dose injection 25-50 mcg (CANCELED) 25-50 mcg, Intravenous, EVERY 5 MIN PRN, Starting on Tue11/17/22 at 1356, Until Tue11/17/22 at 1611, Pain, Give 25 mcg every 5 minutes PRN for mild to moderate pain (1-5) Give 50 mcg every 5 minutes PRN for moderate to severe pain (6-10). Hold for respiratory rate less than 10 per minute. Maximum dose 250 mcg over one hour. If multiple pain medications are ordered, start with HYDROmorphone or morphine and use fentaNYL for breakthrough pain., PACU Recovery, Routine 1436 (Given - Provid er: Delbert Hodges RN)1449 (Given - Provider: Delbert Hodges RN) LORazepam (Ativan) (2 mg/mL) injection 0.26-1 mg (CANCELED) 0.26-1 mg (rounded from 0.25-1 mg), Intravenous, EVERY 15 MIN PRN, Starting on Tue11/17/22 at 1442, Until Tue11/17/22 at 1611, Anxiety, muscle spasm, Please start with lowest effective dose. If medication ordered subcutaneously, do not administer more than 2 mL as a single injection., PACU Recovery, Routine 1500 (Given - Provid er: Delbert Hodges RN) documented in this encounter Care Teams Novelty Chain Maker Relationship Specialty Start Date End Date Samantha Escalante, MEDICAID BILLING SPECIALIST [address] [place] [address] PCP - General Family Medicine 10/06/17 documented as of this encounter
--- OUTSIDE RECORDS SUMMARY | 2023-11-25 01:16 | XMS_ITS | Encounter Summary ---
Author Organization [facility] [place] [address] Care Team Providers Care Race Car Driver Name Role Phone Samantha Escalante APRN Primary Care Provider Encounter Details Date Type Department Care Team (Late st Contact Info) Description 11/10/2022 External Results Pre-Admission Testing at [facility] [address] [place] [id number] Social History Tobacco Use Types Packs/Day Years [...] Procedure Name Priority Date/Time Associated Diagnosis Comments EXTERNAL LAB RESULTS Routine 11/05/2022 2:58 PM EDT EXTERNAL LAB RESULTS Routine 10/21/2022 11:11 AM EDT ECG SCAN Routine 10/21/2022 11:10 AM EDT documented in this encounter Results * External Lab Results (11/05/2022 2:58 PM EDT) Historical Provider CHEMISTRY ORDERAB LES * External Lab Results (10/21/2022 11:11 AM EDT) Historical Provider CHEMISTRY ORDERAB LES * Scan Doc: ECG (10/21/2022 11:10 AM EDT) Historical Provider MEDIA MGR SCAN EX T ORDR/RSLT documented in this encounter Visit Diagnoses Not on filedocumented in this encounter Care Teams Race Car Driver Relationship Specialty Start Date End Date Samantha Escalante APRN [address] [place] [address] PCP - General Family Medicine 10/06/17 documented as of this encounter
--- OUTSIDE RECORDS SUMMARY | 2023-11-25 01:16 | XMS_ITS | Encounter Summary ---
Author Organization [facility] [place] [address] Care Team Providers Care Application Development Specialist Name Role Phone Samantha Escalante APRN Primary Care Provider Encounter Details Date Type Department Care Team (Late st Contact Info) Description 11/16/2022 9:45 AM EDT Telephone Pre-Admission Testing at [facility] [address] [place] [address] Social History Tobacco Use Types Packs/Day Years Used Date Smoking Tobacco: Former Cigarettes 1 45 2017 Smokeless Tobacco: Never Tobacco Cessation:Counseling Given: [...] as of this encounter Progress Notes * Reba Arechiga RN - 11/16/2022 10:04 AM EDT Have you tested positive for COVID in the last 90 days? [x]No []Yes If Yes; Date of positive test: Type of test performed: What were your symptoms: documented in this encounter Plan of Treatment Not on file documented as of this encounter Visit Diagnoses Not on filedocumented in this encounter Care Teams Application Development Specialist Relationship Specialty Start Date End Date Samantha Escalante APRN [address] [place], [place] [address] [address] [place] [address] PCP - General Family Medicine 10/06/17 documented as of this encounter
--- OUTSIDE RECORDS SUMMARY | 2023-11-25 01:16 | XMS_ITS | Encounter Summary ---
[place] [address] Care Team Providers Care Metrology Engineer Name Role Phone Samantha Escalante APRN Primary Care Provider Encounter Details Date Type Department Care Team (Late st Contact Info) Description 05/21/2022 Telephone [place]stetrics [place] [id number] Liz Lind Social History Tobacco Use Types Packs/Day Years [...] on filedocumented in this encounter Care Teams Metrology Engineer Relationship Specialty Start Date End Date Samantha Escalante APRN [address] [place] [address] PCP - General Family Medicine 10/06/17 documented as of this encounter
--- OUTSIDE RECORDS SUMMARY | 2023-11-25 01:16 | XMS_ITS | Encounter Summary ---
Author Organization [facility] [place] [address] Care Team Providers Care Senior Sales Operations Manager Name Role Phone Samantha Escalante APRN Primary Care Provider Encounter Details Date Type Department Care Team (Late st Contact Info) Description 06/04/2021 11:30 AM EST Office Visit Dermatology at [address] [phone] Willard Parra MD [address] [facility] [place], [place] [id number] Seborrheic keratosis, inflamed; Seborrheic keratoses Social History Tobacco Use Types Packs/Day Years Used Date Smoking Tobacco: Former Smokeless Tobacco: Never Sex and Gender Information Value Date Recorded Sex Assigned at Not on file Gender Identity Not on file Sexual Orientation Not on file documented as of this encounter Progress Notes * Willard Parra MD - 06/04/2021 11:30 AM EST Problem: Irritated seborrheic keratoses/skin tag Lynda follows up after last seeing me in 2018 for benign skin checkup, and [facility] [place]ated se[place]rheic [place]at[place] , in October 2020, September 2020 and March 2020. She states that the seborrheic keratoses are still present in many sites have not totally resolved and itch and bother her terribly. They are present on the back on the chest. She has moles on her face. She has a couple of skin tags present in both axillary vaults. She notes that her father hadsome of these in her paternal grandmother had many of the same type of growth. Physical examination reveals a pleasant 65-year-old woman who has waxy stuck on appearing seborrheic keratoses present widely on her back. The largest ones have resolved following treatment at [facility], all except 1. She has numerous small seborrheic keratoses developing on the central back. She does have additional sites present on the face as diagrammed on the accompanying flowsheet and a number onthe submammary breast and upper abdomen. Assessment and plan: Irritated seborrheic keratoses 1. Discussed diagnosis with patient 2. Discussed genetic predilection 3. Discussed treatment options with LN2 and recurrent visits until symptomatic sites have been treated. 4. After obtaining informed consents sites were treated with LN 2 x 2 to all [place] on back into 4 facial sites. Largest remaining 1 cm diameter seborrheic keratosis site on the back was first anesthetized, then treated with LN 2 x 2. Today 14 sites were treated. 5. Could consider treatment of skin tags in either axillary vault. 6. Return to clinic in another month for repeat check. CC: Samantha Escalante APRN documented in this encounter Plan of Treatment Not on file documented as of this encounter Visit Diagnoses Diagnosis Seborrheic keratosis, inflamed Inflamed seborrheic keratosis Seborrheic keratoses documented in this encounter Care Teams Senior Sales Operations Manager Relationship Specialty Start Date End Date Samantha Escalante APRN [address] [place] [address] PCP - General Family Medicine 10/06/17 documented as of this encounter
--- OUTSIDE RECORDS SUMMARY | 2023-11-25 01:16 | XMS_ITS | Encounter Summary ---
Author Organization [facility] [place] [address] Care Team Providers Care Architect Manager Name Role Phone Samantha Escalante APRN Primary Care Provider Encounter Details Date Type Department Care Team (Latest Contact Info) Description 07/13/2022 Travel Social History Tobacco Use Types Packs/Day [...] on filedocumented in this encounter Care Teams Architect Manager Relationship Specialty Start Date End Date Samantha Escalante APRN [address] [place] [address] PCP - General Family Medicine 10/06/17 documented as of this encounter
--- OUTSIDE RECORDS SUMMARY | 2023-11-25 01:16 | XMS_ITS | Encounter Summary ---
Author [facility] [place] [address] Care Team Providers Care Fuel Efficient Aircraft Designer Name Role Phone Samantha Escalante APRN Primary Care Provider Encounter Details Date Type Department Care Team (Latest Contact Info) Description 05/24/2022 Travel Social History Tobacco Use Types Packs/Day [...] on filedocumented in this encounter Care Teams Fuel Efficient Aircraft Designer Relationship Specialty Start Date End Date Samantha Escalante APRN [address] [place], [place] [id number] PCP - General Family Medicine 10/06/17 documented as of this encounter
--- OUTSIDE RECORDS SUMMARY | 2023-11-25 01:16 | XMS_ITS | Encounter Summary ---
Author Organization 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, lumbar region SPONDYLOSIS DDD Procedures PRO LAMINEC/FACETECT/FORAMIN, LUMBAR 1 SEG LAMINECTOMY, FACETECTOMY & FORAMINOTOMY,LUMBAR, ONE LEVEL (WRVU 15.37) Referral ID Status Reason Start Date Expiration Date Visits Re quested Visits Authorized [id number] 1 1 Encounter Details Date Type Department Care Team (Late st Contact Info) Description 08/05/2021 2:41 PM EDT Anesthesia [place] [address] Ming Bull, COMMERCIAL LOAN COLLECTION OFF[place] [address] Tim Wu, COMMERCIAL LOAN COLLECTION [place] [address] Anesthesia Record Procedure Summary Procedure Name Responsible Anesthesiologist Anesthesia Start Time Anesthesia Stop Time LAMINECTOMY, FACETECTOMY & FORAMINOTOMY,LUMBAR, ONE LEVEL (VU 15.37) (Right: Spine Lumbar) Ming Bull, COMMERCIAL LOAN COLLECTION OFFICER 08/05/21 1441 08/05/21 1614 Events Date Time Event Comment 08/05/2021 1347 1441 AN Verify 1441 Start 1441 An Start Data 1446 An Induction 1448 An Intubation 1449 Anesthesia Ready 1451 Quick Note Artifact during movement of pt over 1600 Extubation/LMA Out 1608 an stop data 1608 Recovery or ICU Handoff Naila ent care was transferred to the destination unit staff after review of the patient's medical history, current anesthetic/surgical status and plan, according to the Provider Handoff Checklist. 1614 Stop Meds Name Total Midazolam 3 mg fentaNYL 200 mcg IV Lidocaine 100 mg Propofol 250 mg Rocuronium 40 mg Ondansetron 4 mg Dexamethasone 10 mg Clindamycin 900 mg diphenhydrAMINE 25 mg Sugammadex 150 mg lactated ringers infusion 0 mL * Agents Name O2 Air N2O Sevoflurane (et) * Blood No blood administrations on file. Lines, Drains, and Airways Type Details Placement Removal (RETIRED) Peripheral IV Line - Single Lumen 08/05/21; 1312; tdzp-[id number]-yevuxk catheter system; Anatomical Landmarks; 20 gauge; NUBIA Deleon; tolerated well; no longer indicated, removed per policy/procedure, catheter/device intact; 08/05/21; 18408/05/21 1312 by Marycarmen Deleon RN 08/05/21 1840 by Tashi Chappell, NUBIA ETT Mask Ventilation: Bean duarte (1); ETT Type: Cuffed, Oral; ETT Size: 7.5 mm; Lucia Blade: 2; Notes: Asleep, Pre-O2, Stylette; Attempts: 1; Laryngoscopy Grade: 1; ETT Placement Verified By: Auscultation, Capnometry, Visual; Secured at Teeth: 22 cm; Removal Date: 08/05/21; Removal Time: 1600 08/05/21 1448 by Ming Bull, COMMERCIAL LOAN COLLECTION OFFICER 08/05/21 1600 by Ming Bull, COMMERCIAL LOAN COLLECTION OFFICER Incision 08/05/21; 1503; lowe r, Right, posterior; lumbar spine; dressing dermabond, benzoin and papertape; LDA not present upon assessment; 11/17/22; 1349 08/05/21 1503 by Jama Carreon RN 11/17/22 1349 by Ana Starks RN documented in this encounter Social History Tobacco Use Types Packs/Day Years Used Date Smoking Tobacco: Former Smokeless Tobacco: Never Sex and Gender Information Value Date Recorded Sex Assigned at Not on file Gender Identity Not on file Sexual Orientation Not on file documented as of this encounter OR Notes * Anesthesia Postprocedure Evaluation - Ming Bull CRNA - 08/05/2021 4:14 PM EDT Department of Anesthesiology Post-procedure Note Patient: Lynda Pedersen Procedure Summary Date: 08/05/21 Room / Location: [facility] OR MAIN OR Anesthesia Start: 1441 Anesthesia Stop: 1614 Procedure: LAMINECTOMY, FACETECTOMY & FORAMINOTOMY,LUMBAR, ONE LEVEL (WRVU 15.37) (Right Spine Lumbar) Diagnosis: (SPONDYLOSIS DDD) Surgeons: Jacinto Apodaca MD Responsible Provider: Ming Bull CRNA Anesthesia Type: general ASA Status: 3 All Anesthesia Providers: AZUL Independent: Ming Bull CRNA Vitals Value Taken Time BP Temp Pulse Resp SpO2 Pain Level Patient Location: PACU Level of Consciousness: Conscious but Sleepy Pain Management: Satisfactory Analgesia PONV: None Cardiovascular Status: At Baseline Respiratory Status: At Baseline, Supplemental O2 (NC or FM) and Stable Respiratory Status Postoperative Fluid Status: Intravascular EUvolemia Possible Anesthetic Complications: NONE apparent at time of evaluation Final Primary Anesthesia Type: General (The anesthetic type performed was the same as planned.) Comments: Please see PACU flowsheet for VS. Report and care to RN * Anesthesia Preprocedure Evaluation - Tim Wu CRNA - 08/05/2021 1:47 PM EDT Images from the original note were not included. Pre-Anesthesia Evaluation for: Lynda Pedersen a 65 y.o. female. Procedure(s): LAMINECTOMY, FACETECTOMY & FORAMINOTOMY,LUMBAR, ONE LEVEL (WRVU 15.37) Patient Active Problem List Diagnosis Date Noted ??? Seborrheic keratosis 04/14/2018 Past Medical History: Diagnosis Date ??? Barretts syndrome ??? Gastroesophageal reflux No past surgical history on file. Social History Tobacco Use ??? Smoking status: Former Smoker ??? Smokeless tobacco: Never Used Substance Use Topics ??? Alcohol use: Not on file Social History Substance and Sexual Activity Drug Use Not on file Allergies Allergen Reactions ??? Omeprazole Other reaction(s): Rash, itching all over ??? Kpqenmc-Hzl-Hrn Reductase Inhibitors Other reaction(s): MUSCLE ACHES ??? Codeine Phosphate CIS - Nausea/Vomiting ??? Penicillins CIS - Rash ??? Esomeprazole ??? Metronidazole Other reaction(s): DIARRHEA ??? Pantoprazole Medications: MAR and/or home medications have been reviewed. Physical Exam: Preprocedure Vitals Current as of 08/05/21 1347 BP: 144/71 Pulse: 77 Resp: 18 SpO2: 96 Temp: 36.1 ??C (97 ??F) Height: 149.9 cm (4' 11) (08/05/21) Weight: 72.6 kg (160 lb) (08/05/21) BMI: 32.31 IBW: 39.1 kg (86 lb 3.6 oz) Last edited 08/05/21 1334 by HF Airway Assessment: Mallampati: II TM distance: <3 FB Neck ROM: full Cardiovascular Assessment: Rhythm: regular Rate: normal Pulmonary Assessment: breath sounds clear to auscultation pulmonary exam normal Dental Assessment: - normal exam (+) upper dentures Misc Assessment: Patient is wearing No contact(s). IV access: Peripheral line Last Filed Perioperative Cognitive Screening None Anesthesia Plan: ASA 3 general, with a(n) intravenous induction Region - Other Informed Consent: Anesthetic plan and risks discussed with patient. Anesthesia Screening documented in this encounter Plan of Treatment Not on file documented as of this encounter Visit Diagnoses Not on filedocumented in this encounter Administered Medications Inactive Administered Medications - up to 3 most recent administrations Medication Order MAR Action Action Date Dose Rate Site clindamycin (Cleocin) (150 mg/mL) injection Intravenous, PRN, Starting on Tue08/05/21 at 1446, Until Tue08/05/21 at 1614, Anesthesia Intra-op, Routine Given 08/05/2021 2:46 PM EDT 900 mg dexamethasone (Decadron) injection Intravenous, PRN, Starting on Tue08/05/21 at 1446, Until Tue08/05/21 at 1614, Anesthesia Intra-op, Routine Given 08/05/2021 2:46 PM EDT 10 mg diphenhydrAMINE (Benadryl) (50 mg/mL) injection Intravenous, PRN, Starting on Tue08/05/21 at 1441, Until Tue08/05/21 at 1614, Anesthesia Intra-op, Routine Given 08/05/2021 2:41 PM EDT 12.5 mg Given 08/05/2021 2:28 PM EDT 12.5 mg fentaNYL (pf) (50 mcg/mL) multi-dose injection Intravenous, PRN, Starting on Tue08/05/21 at 1446, Until Tue08/05/21 at 1614, Anesthesia Intra-op, Routine Given 08/05/2021 3:39 PM EDT 100 mcg Given 08/05/2021 2:46 PM EDT 100 mcg lactated ringers infusion 1,000 mL, at 50 mL/hr, Intravenous, CONTINUOUS, Starting on Tue08/05/21 at 1330, Until Tue08/05/21 at 1845, Day of Surgery (Day of Procedure) New Bag 08/05/2021 2:41 PM EDT lidocaine (pf) (Xylocaine) (20 mg/mL) 2% injection syringe Intravenous, PRN, Starting on Tue08/05/21 at 1446, Until Tue08/05/21 at 1614, Anesthesia Intra-op, Routine Given 08/05/2021 2:46 PM EDT 100 mg midazolam (pf) (Versed) (1 mg/mL) multi-dose injection Intravenous, PRN, Starting on Tue08/05/21 at 1441, Until Tue08/05/21 at 1614, Anesthesia Intra-op, Routine Given 08/05/2021 2:41 PM EDT 3 mg ondansetron (pf) (Zofran) (2 mg/mL) injection Intravenous, PRN, Starting on Tue08/05/21 at 1455, Until Tue08/05/21 at 1614, Anesthesia Intra-op, Routine Given 08/05/2021 2:55 PM EDT 4 mg propofoL (Diprivan) 10 mg/mL bolus injection (Anesthesia) Intravenous, PRN, Starting on Tue08/05/21 at 1446, Until Tue08/05/21 at 1614, Anesthesia Intra-op Given 08/05/2021 3:51 PM EDT 50 mg Given 08/05/2021 2:46 PM EDT 200 mg rocuronium (Zemuron) 10 mg/mL injection Intravenous, PRN, Starting on Tue08/05/21 at 1446, Until Tue08/05/21 at 1614, Anesthesia Intra-op, Routine Given 08/05/2021 2:46 PM EDT 40 mg sugammadex (Bridion) 100 mg/mL injection Intravenous, PRN, Starting on Tue08/05/21 at 1544, Until Tue08/05/21 at 1614, Anesthesia Intra-op, Routine Given 08/05/2021 3:44 PM EDT 150 mg documented in this encounter Care Teams Freight Tallier Relationship Specialty Start Date End Date Samantha Escalante APRN [address] [place] [address] PCP - General Family Medicine 10/06/17 documented as of this encounter
--- OUTSIDE RECORDS SUMMARY | 2023-11-25 01:16 | XMS_ITS | Encounter Summary ---
Author Organization [facility] [place] [address] Care Team Providers Care Form Grader Name Role Phone Samantha Escalante APRN Primary [...] Expiration Date Visits Re quested Visits Authorized [id number] 1 1 Encounter Details Date Type Department Care Team (Late st Contact Info) Description 08/05/2021 1:35 PM EDT Ancillary Procedure Radiology Xray at [facility] [place] [address] Social History Tobacco Use Types Packs/Day Years Used Date Smoking Tobacco: Former Smokeless Tobacco: Never Sex and Gender Information Value Date Recorded Sex Assigned at Not on file Gender Identity Not on file Sexual Orientation Not on file documented as of this encounter Plan of Treatment Not on file documented as of this encounter Procedures Procedure Name Priority Date/Time Associated Diagnosis Comments XR FLUORO NO RAD <1HR - OR USE Routine 08/05/2021 3:44 PM EDT documented in this encounter Results * XR Fluoro No Rad <1Hr - OR Use (08/05/2021 3:44 PM EDT) Narrative Dicom, Auditing User - 08/05/2021 3:44 PM EDT This exam is auto-finalizing. No interpretation was done. Jacinto Apodaca MD IMG FLUORO ORDERABLE S documented in this encounter Visit Diagnoses Not on filedocumented in this encounter Care Teams Form Grader Relationship Specialty Start Date End Date Ava CHACE Singh [address] [place] [address] PCP - General Family Medicine 10/06/17 documented as of this encounter
--- OUTSIDE RECORDS SUMMARY | 2023-11-25 01:16 | XMS_ITS | Encounter Summary ---
Author Organization [facility] [place] [address] Care Team Providers Care Wire Preparation Machine Tender Name Role Phone Samantha Escalante APRN Primary Care Provider [phone] Reason for Visit * Reason Comments Follow-up Urgent visit * Consultation (Urgent) - Closed Specialty Diagnoses / Procedures Referred By Contyusuf t Referred To Contact Gynecology Oncology Diagnoses Adnexal mass Silvana Moon MD [facility] [place] [address] Tonia Eli MD [facility] [place] [address] Referral ID Status Reason Start Date Expiration Date V isits Requested Visits Authorized [id number] Closed Consult, Test & Treat 05/24/2022 05/24/2023 1 1 Encounter Details Date Type Department Care Team (Late st Contact Info) Description 06/11/2022 10:00 AM EST Office Visit [place] [address] Tonia Eli MD [facility] [place] [address] Pelvic mass in female (Primary Dx); Carcinoma in situ of colon; Secondary malignant neoplasm of unspecified digestive organ Social History Tobacco Use Types Packs/Day Years [...] Sign Reading Time Taken Comments Blood Pressure 150/89 06/11/2022 9:49 AM EST Pulse 73 06/11/2022 9:49 AM EST Temperature 35.9 ??C (96.6 ??F) 06/11/2022 9:49 AM ES T Respiratory Rate - - Oxygen Saturation 97% 06/11/2022 9:49 AM EST Inhaled Oxygen Concentration - - Weight 75.8 kg (167 lb 1.6 oz) 06/11/2022 9:49 A M EST Height 148.6 cm (4' 10.5) 06/11/2022 9:49 AM ES T Body Mass Index 34.33 06/11/2022 9:49 AM EST documented in this encounter Progress Notes * Silvana Moon MD - 06/11/2022 10:00 AM EST Division [place] [address] Gynecologic Oncology Clinic New Patient Visit Reason for visit: Complex adnexal cyst, referred by Silvana Moon MD [facility] [place] [address] Problem List Patient Active Problem List Diagnosis Code ??? Seborrheic keratosis L82.1 ??? Trochanteric bursitis of right hip M70.61 ??? Prediabetes R73.03 ??? Obesity E66.9 ??? Lumbar disc herniation with radiculopathy M51.16 ??? Iron deficiency anemia D50.9 ??? Hyperlipidemia E78.5 ??? Gastroesophageal reflux K21.9 ??? Fatty liver disease, nonalcoholic K76.0 ??? Elevated BP without diagnosis of hypertension R03.0 ??? Chronic low back pain M54.50, G89.29 ??? Barretts syndrome K22.70 History of present illness: Lynda Pedersen is a 66 y.o. female who presents in referral forevaluation of a complex right adnexal mass. Patient reports a history of lumbar disc herniation and low back pain. She underwent a lumbar MRI 04/2021 that showed a partially included cystic septated findings in the right side of the pelvis noted, probably ovarian origin. She states this was never followed up. She was seen by her PCP 04/2022 (a year later) and asked for a TVUS which was performed on 04/15/22 and showed a 9 x 7.5 x 7.8cm complex multi-septated left ovarian cyst. No free fluid. Absence of uterus and left ovary in setting of prior hysterectomy, LSO for endometriosis with an endometrioma. She was seen by her water pollution scientist Dr. Plascencia ([facility]) who ordered tumor markers: Ca 125 7.2, AFP 6.4, bHCG 6.2. I saw Estephanie for a visit in the general cardiac specialist clinic and subsequently referred her here for consideration of surgical management. Other history from my note as follows: She reports chronic issues with her stomach and colon, dx Barretts esophagus and GERD. She notes a history of iron deficiency anemia in the past. Her last colonoscopy was 2 months ago. States they took out 24 polyps, 4 of which were concerning for precancer. She has a follow up visit this Spring. ?? Currently she reports abdominal bloating x1 year and RUQ aching, worse after eating. She was recently treated with antibiotics for H.pylori and pneumonia, thought she had developed a yeast infection but was told her swabs came back negative for vaginitis. Vaginal itching improved but has persistent vaginal pressure. She denies unexpected weight [...] UA which was negative. Denies vaginal bleeding. Today she is with her daughter Carlie. Denies changes in health since her 5L visit. Gynecologic history: Menarche was approximately age 13yo. Unsure of age of menopause, s/p hysterectomy with LSO age 24 in the setting of endometriosis/endometrioma, developed vasomotor sx in late 30s which lasted for approximately 10 years Number of pregnancies: Spontaneous vaginal deliveries: 2 C-sections: 1 Oral contraceptive/ control pill use: no Menopausal hormone therapy use: no Other contraceptive history: s/p BS age 24 Pap smears: obtained regularly, denies h/o abnormal Cancer screening 1. Mammography: scheduled for next month, gets yearly due to increased breast density 2. Colonoscopy: h/o serrated and tubular colon adenomas, 03/2022 states they took out 24 polyps, 4 of which were fast growing, recommended for 2 year follow up Family history: Breast: Niece dx late 20s, unsure if had genetic testing Endometrial: denies Ovarian: denies Colon: denies Pancreas: denies Other: Sister and niece cervical cancer, daughter thyroid cancer, brother lung cancer Past medical history 1. Alford's esophagus. 2. GERD. 3. H/o H.pylori. 4. Chronic low back pain. 5. Lumbar disc herniation w/radiculopathy. 6. Elevated BP w/o dx of HTN 7. Fatty liver disease. 8. HLD. 9. Iron deficiency anemia, h/o iron infusions now on daily supplementation 10. Obesity. 11. Prediabetes. 12. Colon polyps. 13. Trigger finger of left hand. 14. Trochanteric bursitis of right hip. 15. Endometriosis, h/o endometrioma. 16. Asthma, uses inhaler BID. Past surgical history 1. Open appendectomy at time of CS 2. Cataract removal. 3. CS x1 via VMLI 4. L and R thumb trigger finger release. 5. LSC hysterectomy, bilateral salpingectomy, left oophorectomy via VMLI 6. Lipoma resection. 7. L5-S1 laminectomy 07/2021. 8. Tonsillectomy/adenoidectomy. Social history: She is . Lives in [place], [place]. 83yo woman who is renting a room from her. Tobacco history: Former smoker, 46 PPD quit 2017 Alcohol history: denies Other drugs: denies Herbal/alternative therapies: denies. Performance status: Karnofsky Scale - 80, shortness of breath with 2 flights of stairs Medications Prior to Admission medications Medication Sig Start Date End Date Taking? Authorizing Provider ibuprofen (Advil) 600 mg Tablet TAKE ONE TABLET BY MOUTH THREE TIMES A DAY NEEDED FOR PAIN 01/05/22 Yes PROVIDER, HISTORICAL clotrimazole (LOTRIMIN) 1 % Cream APPLY 1 APPLIATION TWICE A DAY NEEDED FOR RASH UNDER BREASTS. USE FOR 2-4 WEEKS 01/06/22 Yes PROVIDER, HISTORICAL FeroSuL 325 mg (65 mg iron) Tablet Take 325 mg by mouth 2 times daily. 12/18/21 Yes PROVIDER, HISTORICAL famotidine (Pepcid) 40 mg Tablet Take 40 mg by mouth 2 times daily. 04/07/22 Yes PROVIDER, HISTORICAL Advair HFA 115-21 mcg/actuation HFA Aerosol Inhaler INHALE TWO PUFFS BY MOUTH TWICE A DAY, RINSE AFTER USE 04/07/22 Yes PROVIDER, HISTORICAL Advair Diskus 250-50 mcg/dose Disk with Device Inhale 1 puff into the lungs 2 times daily. 02/19/22Yes PROVIDER, HISTORICAL acetaminophen (Tylenol) 500 mg Tablet Take 1,000 mg by mouth every 6 hours as needed for Pain. Yes PROVIDER, HISTORICAL albuteroL 90 mcg/actuation HFA Aerosol Inhaler Inhale 2 puffs into the lungs every 6 hours as needed for Wheezing. Use with spacer Yes PROVIDER, HISTORICAL traMADoL (Ultram) 50 mg Tablet Take 1 tablet by mouth every 6 hours as needed for Pain. Patient not taking: Reported on 05/24/2022 08/05/21 Franki Mills PA baclofen (LIORESAL) 5 mg Tablet TAKE 1 TABLET BY MOUTH THREE TIMES DAILY NEEDED FOR BACK PAIN 04/06/21 PROVIDER, HISTORICAL pantoprazole EC (Protonix) 20 mg Tablet, Delayed Release (E.C.) *no longer taking TAKE 1 TABLET BY MOUTH DAILY 07/31/20 PROVIDER, HISTORICAL Allergies Allergies Allergen Reactions ??? Omeprazole Other reaction(s): Rash, itching all over ??? Fxydwuz-Sdl-Fxg Reductase Inhibitors Other reaction(s): MUSCLE ACHES ??? Codeine Phosphate CIS - Nausea/Vomiting ??? Penicillins CIS - Rash [facility] Penicillin Allergy Risk Assessment 06/11/2022: Low risk penicillin allergy. OK to receive full dose of cefazolin, cefuroxime, or any 3rd or 4th+ generation cephalosporin. PAT Clinic PRINCIPAL ADMINISTRATIVE CLERK to place Allergy referral for formal penicillin allergy evaluation. Patient open to a phone consult from the allergy clinic. ??? Esomeprazole ??? Metronidazole Other reaction(s): DIARRHEA ??? Pantoprazole ??? Vancomycin Analogues Other (See Comments) Pt unable to tolerate 1g over 60 min. -scalp pruritis and minor erythema to chest and face Vital signs: BP 150/89 (Patient Position: Sitting) Pulse 73 Temp 35.9 ??C (96.6 ??F) (Temporal) Ht 148.6 cm (4' 10.5) Wt 75.8 kg (167 lb 1.6 oz) SpO2 97% BMI 34.33 kg/m?? Physical examination General: She is alert and oriented, well-groomed and dressed, no obvious distress. She ambulates easily. HEENT: PERRLA, no scleral icterus or corneal arcus. Mucus membranes were moist. Neck was supple andwithout thyromegaly or adenopathy. Lungs: Clear to auscultation bilaterally Heart: RRR, no murmur, rubs, gallop Abdomen:Soft, non tender, non distended. No HSM, no palpable masses. Pelvic examination: Normal external genitalia. No lesions of the vulva, clitoris, urethral meatus, perineal body, or perianal area. Speculum exam demonstrates normal vaginal cuff without lesion or discharge. On bimanual examination, the uterus is surgically absent. Mobile soft mass palpable at left anterior vagina. Rectovaginal exam: confirms the above. Extremities: No edema. Laboratory/pathology/imaging studies: As discussed above, in the history of present illness. Impression/plan: Lynda Pedersen is a 66 y.o. woman with a 9 cm complex left adnexal cyst with normal Ca 125. I suspect this is a benign process, however would recommend surgical removal for definitive diagnosis. I recommended she undergo a LSC left oophorectomy (possible BSO if any residual adnexaltissue from prior surgery remains), with staging procedures as indicated. Possible laparotomy. We reviewed risks of surgery including bleeding, infection, injury to surrounding organs (bladder, bowel, ureter, nerves, vessels), possible laparotomy, possible lymphedema, blood clot in the legs or lung, and pneumonia. We also reviewed course of typical recovery and plan for follow-up 2 weeks post-op.Questions answered and consents signed. Scheduled for 07/05/22. 1. Preop - CBC, BMP, t+s, CEA, CA 19-9 - Abx: not indicated - VTE: SCDs Patient seen and discussed with Dr. Eli, attending gynecologic oncologist. Silvana Moon MD PGY4 06/11/2022 I have seen and examined the patient and reviewed and edited the resident's above history and I agree with the details as written. The assessment and plan were formulated in discussion with me and I agree with them as documented. Tonia Eli MD * Arcadio Richards LNA - 06/11/2022 10:00 AM EST Lynda was seen in the Gynecology Oncology clinic today. I was present as financial reserve clerk for the sensitive parts of her examination. DARIANA Leiva documented in this encounter Plan of Treatment Not on file documented as of this encounter Results * Carbohydrate Antigen 19-9 (06/11/2022 12:40 PM EST) CA 19-9 7.4 <=35.0 u/ml [facility] Comment: This result was generated using a Jose E La immunoassay. ??Results obtained from other methods or manufacturers cannot be used interchangeably with this method. Blood 06/11/2022 12:4 0 PM EST 06/11/2022 12:54 PM EST Narrative Resulting Agency Comment Spec In Lab Tonia Eli MD CHEMISTRY ORDERABL ES [facility] [place] [place] [address] * CEA (06/11/2022 12:40 PM EST) CEA 0.7 <=3.8 ng/mL [facility] Comment: Reference range: ??(20-69 years): Non-smoker: ??less than or equal to 3.8 ng/mL Smoker: ??less than 5.5 ng/ml This result was generated using a Jose E La immunoassay. ??Results obtained from other methods or manufacturers cannot be used interchangeably with this method. Blood 06/11/2022 12:4 0 PM EST 06/11/2022 12:54 PM EST Narrative Resulting Agency Comment Spec In Lab Tonia Eli MD CHEMISTRY ORDERABL ES [facility] [place] [address] * (ABNORMAL) Comprehensive metabolic panel (non-fasting) (06/11/2022 12:40 PM EST) Glucose Lvl 90 65 - 199 mg/dL [facility] Comment:Diabetes: >=200 mg/d L plus symptoms BUN 11 8 - 18 mg/dL [facility] Creatinine 0.75 0.70 - 1.20 mg/dL [facility] Sodium 137 135 - 145 mmol/L [facility] Potassium 4.7 3.5 - 5.0 mmol/L [facility] Comment: Please note: ??Patients with WBC >100,000 may have falsely elevated Potassium levels. ??For accurate Potassium quantification in these patients send serum separator tube (gold top) for subsequent determinations. ??Contact the Clinical Chemistry Laboratory if there are any questions. Chloride 100 98 - 107 mmol/L [facility] CO2 26 22 - 31 mmol/L [facility] Anion Gap 11 5 - 15 mmol/L [facility] Calcium 10.3 8.5 - 10.5 mg/dL [facility] Total Protein 7.8 6.1 - 8.0 g/dL [facility] Albumin 4.8 3.2 - 5.2 g/dL [facility] AST 38(H) 0 - 30 unit/L [facility] ALT 53(H) 0 - 30 unit/L [facility] Alk Phos 54 35 - 105 unit/L [facility] Total Bilirubin 0.3 0.2 - 1.3 mg/dL [facility] Estimated GFR 88 >=60 mL/min/1. 73 m?? 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
--- OUTSIDE RECORDS SUMMARY | 2023-11-25 01:16 | XMS_ITS | Encounter Summary ---
Author Organization [facility] [place] [address] Care Team Providers Care Gis Administrator Name Role Phone Samantha Escalante APRN Primary Care Provider Reason for Visit * Reason Comments Follow-up Encounter Details Date Type Department Care Team (Late st Contact Info) Description 06/17/2021 1:45 PM EST Office Visit Dermatology at [address] [address] Willard Parra MD [address] [facility] DERMATOLOGY [place], [place] [id number] Seborrheic keratosis, inflamed; Seborrheic keratoses Social History Tobacco Use Types Packs/Day Years Used Date Smoking Tobacco: Former Smokeless Tobacco: Never Sex and Gender Information Value Date Recorded Sex Assigned at Not on file Gender Identity Not on file Sexual Orientation Not on file documented as of this encounter Progress Notes * Willard Parra MD - 06/17/2021 1:45 PM EST Problem: Follow-up irritated seborrheic keratoses Alicia follows up and still has a few irritated Garth Ks left Physical examination reveals a number of irritated seborrheic keratoses on her back and under the submammary breasts and on the upper abdomen. Assessment plan: Irritated seborrheic keratoses 1. Today sites were treated with LN 2 x 2 2. Return to clinic for another 15-minute appointment for shave C&D removal of 1 on the lower central abdomen just above the mons pubis. CC: Samantha Escalante APRN documented in this encounter Plan of Treatment Not on file documented as of this encounter Visit Diagnoses Diagnosis Seborrheic keratosis, inflamed Inflamed seborrheic keratosis Seborrheic keratoses documented in this encounter Care Teams Gis Administrator Relationship Specialty Start Date End Date Samantha Escalante APRN [address] [place] [address] PCP - General Family Medicine 10/06/17 documented as of this encounter
--- OUTSIDE RECORDS SUMMARY | 2023-11-25 01:16 | XMS_ITS | Encounter Summary ---
Author Organization [facility] [place] [address] Care Team Providers Care Straw Hat Brusher Name Role Phone Samantha Escalante APRN Primary Care Provider Reason for Visit * Reason Comments Follow-up Encounter Details Date Type Department Care Team (Late st Contact Info) Description 10/02/2021 4:45 PM EDT Office Visit Dermatology at [address] [address] Willard Parra MD [address] [place] [address] [place]MATOLOGY [place], [place] [id number] Encounter for post surgical wound check Social History Tobacco Use Types Packs/Day Years Used Date Smoking Tobacco: Former Smokeless Tobacco: Never Sex and Gender Information Value Date Recorded Sex Assigned at Not on file Gender Identity Not on file Sexual Orientation Not on file documented as of this encounter Progress Notes * Willard Parra MD - 10/02/2021 4:45 PM EDT Problem: Right dorsal foot Garth K treatment site inflammation Alicia follows up after last being seen on September 21. Unfortunately she is experiencing some redness and pain of the seborrheic keratosis C&D treatment site on the right dorsal foot. This despite her carefully using the following instructions that we gave her utilizing antibiotic ointment change the bandage daily. She is even been using Epson salts and some peroxide to the site. Physical examination reveals roughly a centimeter of erythema surrounding the shave biopsy site josué hint of erythema tracking out proximally and distally from the biopsy site. Assessment and plan: Possible seborrheic keratosis treatment site infection right dorsal foot 1. Begin cephalexin 500 mg 1 p.o. 3 times daily for 7 days and discontinue dispense 21 with 0 refills 2. Patient has known penicillin allergy 3. Patient will contact us with her progress up at the end of therapy. 4. She is still considering having additional seborrheic keratoses removed in 3 months. CC: Samantha Escalante APRN documented in this encounter Plan of Treatment Not on file documented as of this encounter Visit Diagnoses Diagnosis Encounter for post surgical wound check documented in this encounter Care Teams Straw Hat Brusher Relationship Specialty Start Date End Date Samantha Escalante APRN [address] [place] [address] PCP - General Family Medicine 10/06/17 documented as of this encounter
--- OUTSIDE RECORDS SUMMARY | 2023-11-25 01:16 | XMS_ITS | Encounter Summary ---
Author Organization [facility] [place] [address] Care Team Providers Care Supervisor Wound Name Role Phone Samantha Escalante APRN Primary Care Provider Encounter Details Date Type Department Care Team (Late st Contact Info) Description 07/21/2021 12:45 PM EDT Telephone Pre-Admission Testing at [facility] [address] [place] [address] Social History Tobacco Use Types Packs/Day Years Used Date Smoking Tobacco: Former Smokeless Tobacco: Never Sex and Gender Information Value Date Recorded Sex Assigned at Not on file Gender Identity Not on file Sexual Orientation Not on file documented as of this encounter Progress Notes * Maryam Lackey RN - 07/21/2021 12:55 PM EDTSummary: covid COVID-19 SCREENING: In the past 14 days, have you had any of the following symptoms: [] Fever (subjective or documented fever) [] Chills [] Cough [] Shortness of breath or difficulty breathing [] Fatigue [] Muscle or body aches [] Headache [] New loss of taste or smell [] Sore throat [] Nausea or vomiting [] Diarrhea [x]NONE OF THE ABOVE Have you tested positive for COVID in the last 90 days? [x]No []Yes If Yes; Date of positive test: Type of test performed: What were your symptoms: Have you scheduled your pre-op COVID Screening Test? []Yes []No [x]N/A vacc x 3 documented in this encounter Plan of Treatment Not on file documented as of this encounter Visit Diagnoses Not on filedocumented in this encounter Care Teams Supervisor Wound Relationship Specialty Start Date End Date Samantha Escalante APRN [address] [place] [address] [address] [facility] [address] [place] [address] PCP - General Family Medicine 10/06/17 documented as of this encounter
--- OUTSIDE RECORDS SUMMARY | 2023-11-25 01:16 | XMS_ITS | Encounter Summary ---
[place] [address] Care Team Providers Care Can Technician Name Role Phone Samantha Escalante APRN Primary Care Provider [phone] Encounter Details Date Type Department Care Team (Late st Contact Info) Description 05/24/2022 Telephone [place] [id number] Gerard Urena Social History Tobacco Use Types Packs/Day Years [...] on filedocumented in this encounter Care Teams Can Technician Relationship Specialty Start Date End Date Samantha Escalante APRN [address] [place] [address] PCP - General Family Medicine 10/06/17 documented as of this encounter
--- OUTSIDE RECORDS SUMMARY | 2023-11-25 01:16 | XMS_ITS | Encounter Summary ---
[facility] [place] [address] Care Team Providers Care Manager Case Name Role Phone Samantha Escalante APRN Primary Care Provider Encounter Details Date Type Department Care Team (Latest Contact Info) Description 05/17/2022 Travel Social History Tobacco Use Types Packs/Day [...] filedocumented in this encounter Care Teams Manager Case Relationship Specialty Start Date End Date Samantha Escalante APRN [address] [place], [place] [address] PCP - General Family Medicine 10/06/17 documented as of this encounter
--- OUTSIDE RECORDS SUMMARY | 2023-11-25 01:16 | XMS_ITS | Encounter Summary ---
Author Organization [facility] [place] [address] Care Team Providers Care Actuarial Assistant Name Role Phone Samantha Escalante APRN Primary Care Provider Encounter Details Date Type Department Care Team (Latest Contact Info) Description 06/11/2022 12:00 PM EST [place] [address] Pelvic mass in female Social History Tobacco Use Types Packs/Day Years [...] Procedure Name Priority Date/Time Associated Diagnosis Comments TYPE AND SCREEN VALIDITY Routine 06/11/2022 12:40 PM EST ABORH RECHECK STATUS Routine 06/11/2022 12:40 PM EST HEMOGRAM Routine 06/11/2022 12:40 PM EST Pelvic mass in female DIFFERENTIAL, AUTOMATED Routine 06/11/2022 12:40 PM EST Pelvic mass in female HC ANTIBODY DETECTION,CAPTURE-R Routine 06/11/2022 12:40 PM EST Pelvic mass in female HC CARBOHYDRATE ANTIGEN 19-9 Routine 06/11/2022 12:40 PM EST Pelvic mass in female ABO/RH TYPING Routine 06/11/2022 12:40 PM EST Pelvic mass in female HC CBC,PLT & AUTO DIFF Routine 12:40 PM EST Pelvic mass in female ANTIBODY SCREEN Routine 06/11/2022 12:40 PM EST Pelvic mass in female HC CARCINO-EMBRYONIC AG ASSAY Routine 06/11/2022 12:40 PM EST Pelvic mass in female COMPREHENSIVE METABOLIC PANEL (NON-FASTING) Routine 06/11/2022 12:40 PM EST Pelvic mass in female documented in this encounter Results * Type and Screen Validity (06/11/2022 12:40 PM EST) T&S only valid at [facility] LABORATORY Comment:This Type and Screen result is only valid at the [facility] Hospital Blood 06/11/2022 12:4 0 PM EST 06/11/2022 12:45 PM EST Narrative Resulting Agency Comment Spec In Lab Tonia Eli MD BLOOD BANK LAB ORD ERABLES [facility] [place] [address] * ABORH Recheck Status (06/11/2022 12:40 PM EST) ABORH Recheck Order Order Placed [facility] ABORH Type Recheck Complete [facility] Blood 06/11/2022 12:4 0 PM EST 06/11/2022 12:45 PM EST Narrative Resulting Agency Comment Spec In Lab Tonia Eli MD BLOOD BANK LAB ORD ERABLES [facility] [place] [address] * (ABNORMAL) Differential, Automated (06/11/2022 12:40 PM EST) Pathologist [facility] Neutrophils % 49.8 % [facility] Neutr Abs (ANC) 3.44 1.70 - 6.10 x10(3)/ L [facility] Lymphocytes % 37.2 % [facility] Lymphocytes Abs 2.6 0.9 - 3.2 x10(3)/[facility] LABORATORY Monocytes % 9.4 % [facility] Monocyte Abs 0.6 0.3 - 0.9 x10(3)/[facility] LABORATORY Eosinophils % 1.5 % [facility] Eosinophils Abs 0.1 0.0 - 0.4 x10(3)/[facility] LABORATORY Basophils % 1.2 % [facility] Basophils Abs 0.1 0.0 - 0.1 x10(3)/[facility] LABORATORY Immature Gran % 0.90 % [facility] Comment: Immature granulocytes(IG's)percentage and absolute count will include metamyelocytes, myelocytes, and promyelocytes. Blood smears from CBCs yielding IG's will be scanned manually for concordance. If this scan disagrees with the automated IG or if promyelocytes are noted, a manual differential will be performed. Ayanna Gran Abs 0.06(H) 0.00 - 0.04 x10(3)/ L [facility] Blood 06/11/2022 12:4 0 PM EST 06/11/2022 12:54 PM EST Narrative Resulting Agency Comment Spec In Lab Tonia Eli MD HEMATOLOGY ORDERAB LES [facility] [place] [address] * Hemogram (06/11/2022 12:40 PM EST) Pathologist [facility] WBC 6.9 4.0 - 9.5 x10(3)/[facility] LABORATORY RBC 4.84 4.00 - 5.21 x10(6)/[facility] LABORATORY Hemoglobin 14.0 11.7 - 15.5 g/dL [facility] Hematocrit 42.9 35.7 - 45.8 % [facility] MCV 88.6 82.6 - 94.4 [facility] LABORATORY MCH 28.9 27.1 - 32.0 pg [facility] MCHC 32.6 31.7 - 35.0 g/dL [facility] Platelets 283 145 - 357 x10(3)/[facility] RDWSD 44.7 37.0 - 46.0 [facility] RDWCV 13.7 11.5 - 14.1 % [facility] MPV 9.5 7.6 - 12.9 [facility] LABORATORY nRBC % Auto 0.0 % [facility] nRBC Abs Auto 0.000 0.000 - 0.000 x10(3)/[facility] LABORATORY Blood 06/11/2022 12:4 0 PM EST 06/11/2022 12:54 PM EST Narrative Resulting Agency Comment Spec In Lab Tonia Eli MD HEMATOLOGY ORDERAB LES Performing Organization Address City/State/[facility] Co de Phone Number [facility] [place] [address] * Antibody screen (06/11/2022 12:40 PM EST) Ab Screen Interp Negative [facility] Expires at [id number] on: 06/24/2022 [facility] Comment: Corrected from 07/08/22 0:00:00 EST [Unknown] on 06/15/22 14:20:48 EST by Dusty Dc Blood 06/11/2022 12:4 0 PM EST 06/11/2022 12:45 PM EST Narrative Resulting Agency Comment Spec In Lab Tonia Eli MD BLOOD BANK LAB ORD ERABLES Performing Organization Address City/[facility]/ZIP Co de Phone Number [facility] [place] [address] * ABO/Rh Typing (06/11/2022 12:40 PM EST) ABORH Type O Pos [facility] Blood 06/11/2022 12:4 0 PM EST 06/11/2022 12:45 PM EST Narrative Resulting Agency Comment Spec In Lab Tonia Eli MD BLOOD BANK LAB ORD ERABLES Performing Organization Address [facility] Co de Phone Number [facility] [place] [address] * (ABNORMAL) Comprehensive metabolic panel (non-fasting) (06/11/2022 12:40 PM EST) [facility] Glucose Lvl 90 65 - 199 mg/dL [facility] Comment:Diabetes: >=200 mg/d L plus symptoms BUN 11 8 - 18 mg/dL [facility] Creatinine 0.75 0.70 - 1.20 mg/dL [facility] Sodium 137 135 - 145 mmol/L [facility] Potassium 4.7 3.5 - 5.0 mmol/L [facility] Comment: Please note: ??Patients with WBC >100,000 may have falsely elevated Potassium levels. ??For accurate Potassium quantification in these patients send serum separator tube (gold top) for subsequent determinations. ??Contact the Clinical Chemistry Laboratory if there are any questions. Chloride 100 98 - 107 mmol/L [facility] CO2 26 22 - 31 mmol/L [facility] Anion Gap 11 5 - 15 mmol/L [facility] Calcium 10.3 8.5 - 10.5 mg/dL [facility] Total Protein 7.8 6.1 - 8.0 g/dL [facility] Albumin 4.8 3.2 - 5.2 g/dL [facility] AST 38(H) 0 - 30 unit/L [facility] ALT 53(H) 0 - 30 unit/L [facility] Alk Phos 54 35 - 105 unit/L [facility] Total Bilirubin 0.3 0.2 - 1.3 mg/dL [facility] Estimated GFR 88 >=60 mL/min/1. 73 m?? [facility] Comment: This patient's estimated GFR [...] Lab Tonia Eli MD CHEMISTRY ORDERABL ES [facility] [place] [address] * CEA (06/11/2022 12:40 PM EST) CEA 0.7 <=3.8 ng/mL [facility] Comment: Reference range: ??(20-69 years): Non-smoker: [...] Lab Tonia Eli MD CHEMISTRY ORDERABL ES Performing Organization Address City/[facility]/ZIP Co de Phone Number [facility] [place] [address] * Carbohydrate Antigen 19-9 (06/11/2022 12:40 PM EST) CA 19-9 7.4 <=35.0 u/ml [facility] Comment: This result was generated using a Jose E La immunoassay. ??Results obtained from other methods or manufacturers cannot be used interchangeably with this method. Blood 06/11/2022 12:4 0 PM EST 06/11/2022 12:54 PM EST Narrative Resulting Agency Comment Spec In Lab Tonia Eli MD CHEMISTRY ORDERABL ES Performing Organization Address [facility] Co de Phone Number [facility] [place] [address] documented in this encounter Visit Diagnoses Diagnosis Pelvic mass in female Abdominal or pelvic swelling, mass or lump, unspecified site documented in this encounter Care Teams Actuarial Assistant Relationship Specialty Start Date End Date Samantha Escalante APRN [address] [place] [address] PCP - General Family Medicine 10/06/17 documented as of this encounter
--- OUTSIDE RECORDS SUMMARY | 2023-11-25 01:16 | XMS_ITS | Encounter Summary ---
Author Organization [facility] [place] [address] Care Team Providers Care Interim Controller Name Role Phone Samantha Escalante APRN Primary Care Provider [phone] Encounter Details Date Type Department Care Team (Late st Contact Info) Description 06/21/2022 12:49 PM EST Anesthesia Event [place] [id number] Poly Singh MD [facility] [place] [address] Anesthesia Record Procedure Summary Procedure Name Responsible Anesthesiologist Anesthesia Start Time Anesthesia Stop Time LAPAROSCOPY, REMOVAL OF ADNEXA (WRVU 11.35) (Pelvis) Poly Singh MD 06/21/22 1249 06/21/22 1458 Events Date Time Event Comment 06/21/2022 1228 1249 AN Verify Pt with lots of back pain, can't really lay flat well. Better with fentanyl 1249 Start 1249 An Start Data 1255 An Induction 1259 An Intubation 1259 Anesthesia Ready 1304 Break/Relief In I assumed ca re for Break Relief before which we: 1. Identified the patient 2. Identified the responsible provider(s) 3. Reviewed the pertinent medical history 4. Discussed the surgical plan and course 5. Reviewed intra-op anesthesia management and issues during anesthesia 6. Set expectations for the relief (and/or post-procedure) period 7. Allowed opportunity for questions and acknowledgement of understanding Alex Moon, SILVICULTURE PROFESSOR 1336 Break/Relief Out 1448 Extubation/LMA Out 1448 an stop data 1458 Recovery or ICU Handoff Naila ent care was transferred to the destination unit staff after review of the patient's medical history, current anesthetic/surgical status and plan, according to the Provider Handoff Checklist. 1458 Stop Meds Name Total fentaNYL 100 mcg IV Lidocaine 80 mg Propofol 200 mg Rocuronium 50 mg Ondansetron 4 mg Dexamethasone 8 mg Propofol INF 637.98 mg Dexmedetomidine 16 mcg ketorolac (Toradol) (30 mg/mL) injection 15 mg Sugammadex 200 mg lactated ringers infusion 900 mL * Agents Name O2 Air N2O Sevoflurane (et) * Blood No blood administrations on file. Lines, Drains, and Airways Type Details Placement Removal Incision 08/05/21; 1503; lowe r, Right, posterior; lumbar spine; dressing dermabond, benzoin and papertape; LDA not present upon assessment; 11/17/22; 1349 08/05/21 1503 by Jama Carreon RN 11/17/22 1349 by Ana Starks, RN (RETIRED) Peripheral IV Line - Single Lumen 06/21/22; 1231; metacarpal vein (top of hand), right; [id number]-[id number]-[id number] catheter system; Anatomical Landmarks; 22 gauge; Kelsie ocampo rn; distraction, intradermal injection; 06/21/22; 1740 06/21/22 1231 by John Wallace, NUBIA 06/21/22 1740 by Leonela Reynolds, RN ETT Mask Ventilation: Ea sy (1); ETT Type: Cuffed, Oral; ETT Size: 7 mm; Lucia Blade: 2; Notes: Asleep, Stylette, Pre-O2; Attempts: 1; Laryngoscopy Grade: 1; ETT Placement Verified By: Auscultation, Capnometry; Secured at Teeth: 20 cm; Inserted by: MD Samantha; Removal Date: 06/21/22; Removal Time: 1448 06/21/22 1259 by Poly Singh MD 06/21/22 1448 by Poly Singh MD (RETIRED) Peripheral IV Line - Single Lumen 06/21/22; 1300; dorsal arch vein (top of hand), left; gwmi-lcn-isljfj catheter system; 18 gauge; Moon SILVICULTURE PROFESSOR; 06/21/22; 1740 06/21/22 1300 by Poly Singh MD 06/21/22 1740 by Leonela Reynolds RN Incision 06/21/22; 1335; midl ine; lower quadrant; laparoscopic punctures (specify); 3 trocar sites; LDA not present upon assessment; 11/17/22; 1349 06/21/22 1335 by Juan Diego Lucia RN 11/17/22 1349 by Ana Starks RN Urethral Catheter 06/21/22; 1336; Genitourinary surgery, Physician order; indwelling double lumen catheter; latex, silicone coated; 14; inserted at this facility; 1; 5; 10; (patient under general anesthesia); drainage bag to dependent drainage; 06/21/22; 1700 06/21/22 1336 by Juan Diego Lucia RN 06/21/22 1700 by Leonela Reynolds, RN documented in this encounter Social History [...] OR Notes * Anesthesia Postprocedure Evaluation - Poly Singh MD - 06/21/2022 3:00 PM EST Department of Anesthesiology Post-procedure Note Patient: Lynda Pedersen Procedure Summary Date: 06/21/22 Room / Location: [address] MAIN OR Anesthesia Start: 1249 Anesthesia Stop: 1458 Procedure: LAPAROSCOPY, REMOVAL OF ADNEXA (WRVU 11.35) (Pelvis) Diagnosis: (ADNEXAL MASS) Surgeons: Tonia Eli MD Responsible Provider: Poly Singh MD Anesthesia Type: general ASA Status: 3 All Anesthesia Providers: Anesthesiologist: Poly Singh MD Vitals Value Taken Time BP 129/72 06/21/22 1453 Temp Pulse Resp SpO2 99 % 06/21/22 1459 Pain Level Vitals shown include unvalidated device data. Patient Location: PACU/[facility] Level of Consciousness: Awake and Alert Pain Management: Satisfactory Analgesia PONV: None Cardiovascular Status: At Baseline and Hemodynamically Stable Respiratory Status: At Baseline and Room Air Postoperative Fluid Status: Intravascular EUvolemia Possible Anesthetic Complications: NONE apparent at time of evaluation Final Primary Anesthesia Type: General (The anesthetic type performed was the same as planned.) Comments: No problems in recovery immediately POLY SINGH MD * Anesthesia Preprocedure Evaluation - Poly Singh MD - 06/21/2022 10:50 AM EST Pre-Anesthesia Evaluation for: yLnda Pedersen a 66 y.o. female. Procedure(s): LAPAROSCOPY, REMOVAL OF ADNEXA (WRVU 11.35) Patient Active Problem List Diagnosis Date Noted ??? Trochanteric bursitis of right hip 06/11/2022 ??? Prediabetes 06/11/2022 ??? Obesity 06/11/2022 ??? Lumbar disc herniation with radiculopathy 06/11/2022 ??? Iron deficiency anemia 06/11/2022 ??? Hyperlipidemia 06/11/2022 ??? Gastroesophageal reflux 06/11/2022 ??? Fatty liver disease, nonalcoholic 06/11/2022 ??? Elevated BP without diagnosis of hypertension 06/11/2022 ??? Chronic low back pain 06/11/2022 ??? Barretts syndrome 06/11/2022 ??? Seborrheic keratosis 04/14/2018 Past Medical History: Diagnosis Date ??? Anemia ??? Barretts syndrome ??? Chronic low back pain ??? Elevated BP without diagnosis of hypertension ??? Fatty liver disease, nonalcoholic ??? Fatty liver disease, nonalcoholic 06/11/2022 ??? Gastroesophageal reflux ??? H. pylori infection 02/2022 ??? Hyperlipidemia ??? Iron deficiency anemia ??? Iron deficiency anemia 06/11/2022 ??? Lumbar disc herniation with radiculopathy ??? [...] 15.37) performed by Jacinto Apodaca MD at [facility] MAIN OR ??? TONSILLECTOMY AND ADENOIDECTOMY ??? UPPER GASTROINTESTINAL ENDOSCOPY Social History Tobacco Use ??? Smoking status: Former ??? Smokeless tobacco: Never Substance Use Topics ??? Alcohol use: Never Social History Substance and Sexual Activity Drug Use Never Allergies Allergen Reactions ??? Omeprazole Other reaction(s): Rash, itching all over ??? Zakicii-Pll-Bqo Reductase Inhibitors Other reaction(s): MUSCLE ACHES ??? Codeine Phosphate CIS - Nausea/Vomiting ??? Penicillins CIS - Rash [facility] Penicillin Allergy Risk Assessment 06/11/2022: Low risk penicillin allergy. OK to receive full dose of cefazolin, cefuroxime, or any 3rd or 4th+ generation cephalosporin. PAT Clinic ELECTRIC INSTALLER to place Allergy referral for formal penicillin [...] Physical Exam: Preprocedure Vitals Current as of 06/21/22 1050 No BP, pulse, respiration, SpO2, or temperature recorded. Height: Weight: BMI: IBW: 38.2 kg (84 lb 2.6 oz) Airway Assessment: Mallampati: II TM distance: >3 FB Neck ROM: full Cardiovascular Assessment: Rhythm: regular Pulmonary Assessment: breath sounds clear to auscultation Dental Assessment: (+) upper dentures and lower dentures Misc Assessment: IV access: Peripheral line Other exam findings: Thick neck Last Filed Perioperative Cognitive Screening Value Time User AD8 Total Score: 4 06/11/2022 1:00 PM Esteban Cramer RN AD8 Informant: Other Informant 06/11/2022 1:00 PM Esteban Cramer RN CFS Frailty Score: 2 06/11/2022 1:00 PM Esteban Cramer RN Anesthesia Plan: ASA 3 general, with a(n) intravenous induction 66 y/o here for laparoscopic removal of adnexa PMH: GERD, obesity, BP elevation ( no meds), lumbar disc herniation, MARCOS ( last Hgb WNL), ultram onlist, asthma, uses inhalers daily, can do 1 FOS PSH: back surgery with lucia 2, no problems Plan : tylenol, GA ETT The patient was informed of the risks of anesthesia, and consent was obtained. The risks of anesthesia include, but are not limited to, PONV, pain, sore throat, and other rare but serious complications such as major organ damage, allergies, blood transfusions, intraoperative awareness, and dental/lip trauma. Region - Other Informed Consent: Anesthetic plan and risks discussed with patient. Plan discussed with SILVICULTURE PROFESSOR. Anesthesia Screening documented in this encounter Plan of Treatment Not on file documented as of this encounter Visit Diagnoses Not on filedocumented in this encounter Administered Medications Inactive Administered Medications - up to 3 most recent administrations Medication Order MAR Action Action Date Dose Rate Site dexAMETHasone (Decadron) injection Intravenous, PRN, Starting on Tue06/21/22 at 1340, Until Tue06/21/22 at 1458, Anesthesia Intra-op, Routine Given 06/21/2022 1:40 PM EST 8 mg dexmedeTOMIDine (Precedex) (4 mcg/mL) bolus injection (Anesthsia) Intravenous, PRN, Starting on Tue06/21/22 at 1330, Until Tue06/21/22 at 1458, Anesthesia Intra-op, Routine Given 06/21/2022 2:04 PM EST 8 mcg Given 06/21/2022 1:30 PM EST 8 mcg fentaNYL (pf) (50 mcg/mL) multi-dose injection Intravenous, PRN, Starting on Tue06/21/22 at 1251, Until Tue06/21/22 at 1458, Anesthesia Intra-op, Routine Given 06/21/2022 1:03 PM EST 50 mcg Given 06/21/2022 12:51 PM EST 50 mcg ketorolac (Toradol) (30 mg/mL) injection Intravenous, PRN, Starting on Tue06/21/22 at 1433, Until Tue06/21/22 at 1458, Anesthesia Intra-op, Routine Given 06/21/2022 2:33 PM EST 15 mg lactated ringers infusion 1,000 mL, at 100 mL/hr, Intravenous, CONTINUOUS, Starting on Tue06/21/22 at 1215, Until Tue06/21/22 at 1753, Day of Surgery (Day of Procedure) New Bag 06/21/2022 11:35 AM EST lidocaine (pf) (Xylocaine) (20 mg/mL) 2% injection syringe Intravenous, PRN, Starting on Tue06/21/22 at 1255, Until Tue06/21/22 at 1458, Anesthesia Intra-op, Routine Given 06/21/2022 12:57 PM EST 20 mg Given 06/21/2022 12:55 PM EST 60 mg ondansetron (pf) (Zofran) (2 mg/mL) injection Intravenous, PRN, Starting on Tue06/21/22 at 1433, Until Tue06/21/22 at 1458, Anesthesia Intra-op, Routine Given 06/21/2022 2:33 PM EST 4 mg propofoL (Diprivan) (10 mg/mL) infusion Intravenous, CONTINUOUS PRN, Starting on Tue06/21/22 at 1249, Until Tue06/21/22 at 1458, Anesthesia Intra-op, Routine Rate/Dose Change 06/21/2022 2:15 PM EST 100 mcg/kg/min 45.3 mL/hr Rate/Dose Change 06/21/2022 1:38 PM EST 50 mcg/kg/min 22.6 5 mL/hr New Bag 06/21/2022 12:49 PM EST 100 mcg/kg/min 45.3 mL/ hr propofoL (Diprivan) 10 mg/mL bolus injection (Anesthesia) Intravenous, PRN, Starting on Tue06/21/22 at 1301, Until Tue06/21/22 at 1458, Anesthesia Intra-op Given 06/21/2022 1:01 PM EST 50 mg Given 06/21/2022 12:55 PM EST 150 mg rocuronium (Zemuron) (10 mg/mL) multi-dose injection Intravenous, PRN, Starting on Tue06/21/22 at 1257, Until Tue06/21/22 at 1458, Anesthesia Intra-op, Routine Given 06/21/2022 12:57 PM EST 50 mg sugammadex (Bridion) 100 mg/mL injection Intravenous, PRN, Starting on Tue06/21/22 at 1422, Until Tue06/21/22 at 1458, Anesthesia Intra-op, Routine Given 06/21/2022 2:22 PM EST 200 mg documented in this encounter Care Teams Interim Controller Relationship Specialty Start Date End Date Samantha Escalante APRN [address] [place] [address] PCP - General Family Medicine 10/06/17 documented as of this encounter
--- OUTSIDE RECORDS SUMMARY | 2023-11-25 01:16 | XMS_ITS | Encounter Summary ---
Author Organization [facility] [place] [address] Care Team Providers Care Hoisting Engineer Name Role Phone Samantha Escalante APRN Primary Care Provider Encounter Details Date Type Department Care Team (Late st Contact Info) Description 06/21/2022 12:27 PM EST - 06/21/2022 2:53 PM EST Surgery [place] [id number] Keli Eli MD [facility] [place] [address] LAPAROSCOPY, REMOVAL OF ADNEXA (WRVU 11.35) Social History Tobacco Use Types Packs/Day Years [...] Sign Reading Time Taken Comments Blood Pressure 129/72 06/21/2022 2:51 PM EST Pulse 86 06/21/2022 12:00 PM EST Temperature 37.3 ??C (99.1 ??F) 06/21/2022 2:51 PM ES T Respiratory Rate 16 06/21/2022 2:51 PM EST Oxygen Saturation 98% 06/21/2022 2:51 PM EST Inhaled Oxygen Concentration - - Weight 75.5 kg (166 lb 8 oz) 06/21/2022 12:00 PM EST Height 147.3 cm (4' 10) 06/21/2022 12:00 PM EST Body Mass Index 34.8 06/21/2022 12:00 PM EST documented in this encounter Discharge Instructions * Patient Instructions* Silvana Moon MD - 06/21/2022 11:36 AM EST Images from the original note were not included. PATIENT DISCHARGE INSTRUCTIONS Gynecologic Oncology phone number: [phone] (Nurse ext [phone] then 4; appointment ext [phone] then 4). After hours and on weekends please call hospital proof machine operator at [phone] and ask for Gynecologic Oncologist receptionist. Call your doctor if you develop: --A fever over 101 degrees --Severe pain --Increasing pain, redness, or discharge at any of your incisions --Heavy vaginal bleeding-soaking through a pad an hour Future Appointments and Orders Future Appointments and Orders Future Appointments Provider Department Dept Phone 07/09/2022 9:40 AM Keli Eli MD Gynecology Oncology at [facility] Arrive at: Polishing Machine Operator Helper Area 3K [phone] Activity level: Let your body guide you. Most people can return to normal daily activities of living within a few days. If you feel you did too much please listen to your body and back off. Diet: You may resume your regular diet. Be sure you drink plenty of fluids. Bowel Regimen: Please use christophe-colace (senna-S or docusate-senna) 1-2 tablets twice daily for the entire time that you are taking narcotic pain medication to keep your bowel movements soft and regular. You may consider using this post- operatively even if you are not using narcotic pain medication. You can increase this to up to 8 tablets a day (and may take 6-12 hours for effect). If you are constipated or have not had a bowel movement in 2 days, you may add in polyethylene glycol (Miralax) 17g(one capful) 1-2 times daily (may take 1-2 days for effect). If this is ineffective you may add Milk of Magnesia 30mL (2 Tablespoons) daily (may take 30minutes - 6 hours to work). The next step is to use Magnesium Citrate 1 bottle (295mL)- this usually produces a bowel movement in 30 minutes-3 hours. Please call if you have not had a bowel movement in 3-4 days. Driving: Do not drive until you are off of all narcotic medications and you are not feeling pain; usually between a couple of days to 2 weeks. Shower/Bath: Showering is fine. Short baths are okay but you should avoid having any abdominal incision submerged for more than 10-15 minutes for the next 2 weeks. Wound Care: Your incisions are closed with dissolvable stitches. The stitches do not need to be removed- they will dissolve on their own. Pain Control: For your post-operative pain please use ibuprofen, acetaminophen, heating pad, and narcotic pain medication (oxycodone) for your pain management. Your goal is to be able to take severalshort walks every day (increase the duration each day) and to be able to sleep at night. If you areunable to do these things using the ibuprofen and acetaminophen and heating pad then you will need to use the narcotic pain medication (oxycodone) for breakthrough pain. You should be able to use less oxycodone every couple days and require no breakthrough narcotic pain medication in about 1-4 days. Please use ibuprofen (Advil/Motrin) 600mg every 6 hours around the clock (with food) for the next 5-7 days. After that, use as needed. Please use acetaminophen (Tylenol) 650mg every 6 hours as needed (or 1000mg every 8 hours as needed). Do not exceed 3000mg of acetaminophen from any source in 24 hours. Please use oxycodone every 4-6 hours as needed for pain that ???breaks through?? the ibuprofen andacetaminophen. Please take your medication exactly as prescribed. Read all instructions that come with your medication. Using narcotic pain medication (such as oxycodone, hydrocodone, hydromorphone [Dilaudid], morphine,fentanyl, or tramadol [Ultram]) may cause addiction. While addiction is more common in people with a personal or family history of addiction, it can occur in anyone. Taking more than the prescribed amount of medication or using with alcohol or other drugs can causeyou to stop breathing resulting in coma, brain damage, or . Opioids (oxycodone, hydrocodone, hydromorphone [Dilaudid], morphine, fentanyl, tramadol [Ultram]) can slow reaction time, cause drowsiness, or cloud judgement. It is unsafe for you to drive or operate heavy machinery while taking this medication. Opioids (oxycodone, hydrocodone, hydromorphone [Dilaudid], morphine, fentanyl, tramadol [Ultram]) are at risk of being diverted by anyone with access to your home. Opioids should be stored in a safe and secure place, such as a locked cabinet or safe. Unused opioids (oxycodone, hydrocodone, hydromorphone [Dilaudid], morphine, fentanyl, tramadol [Ultram]) should be disposed of according to the label or patient information. If there are no specific instructions, medications may be returned to a take-back location or mixed with a small amount of water and an undesirable waste substance such as coffee grounds or cat litter. documented in this encounter Medications at Time of Discharge Medication Sig Dispensed Refills Start Date End Date ibuprofen (Advil) 600 mg Tablet TAKE ONE [...] every 6 hours as needed for Pain. oxyCODONE (Roxicodone) 5 mg Tablet Take 1 tablet by mouth every 4 hours as needed for Pain. 7 tablet 06/21/2022 11/17/2022 melatonin 5 mg Tablet Take 5 mg by mouth nightly. 11/16/2022 CHOLINE ORAL Take by mouth daily. 023 ferrous sulfate 325 mg (65 mg iron) Tablet Take 325 mg by mouth every morning. 11/16/2022 traMADoL (Ultram) 50 mg Tablet Take 1 tablet by mouth every 6 hours as needed for Pain. 30 tablet 08/05/2021 11/16/2022 baclofen (LIORESAL) 5 mg Tablet TAKE 1 TABLET BY MOUTH THREE TIMES DAILY NEEDED FOR BACK PAIN 04/06/2021 11/16/2022 documented as of this encounter Progress Notes * Leonela Reynolds RN - 06/21/2022 4:[address] Moon at bedside to assess umbilical laparoscopic site, see flowsheets for drainage assessment. Dr. Moon unconcerned and preformed dressing change. 1705- successful voiding trial, 300ml output following veliz removal 1740- IVs removed, sites benign. My assessment remains unchanged from my previous assessment. No complaints of chest pain or SOB. Discussed pain management. Patient has all belongings and has received discharge summary. Summary reviewed with pt and daughter, all questions answered. Patient encourage d to call with any further questions or concerns. Patient discharged to home with daughter. Pt demonstrated ability to ambulate to bathroom prior to d/c. VSS. Tolerated PO intake. Pt instructed to call and seek medical care regarding any bleeding or voiding concerns. documented in this encounter H&P Notes * Silvana Moon MD - 06/21/2022 12:00 PM EST Preoperative Interval H&P Patient name: Lynda Pedersen Date of : 1955 Lynda Pedersen presents today for laparoscopic right oophorectomy, possible BSO (if any residual left adnexal tissue remains from prior surgery), with staging procedures as indicated for a complex right adnexal cyst, normal tumor markers. I have reviewed the pre-procedure H&P completed by Dr. Eli and myself on 06/11/22. Interval Note: Patient seen in same day area, here with daughter Carlie. Consent in chart. No changes since preop visit. Preop labs reviewed (below). No new meds/allergies or hospital/ER visits. Has tolerated tylenol and oxycodone in the past. Tries to minimize NSAIDs in setting of GI history (GERD, Alford's esophagus). Patient Vitals for the past 24 hrs: Temp Pulse Resp BP SpO2 O2 Device 06/21/22 1200 36.5 ??C (97.7 ??F) 86 16 136/86 96 % RA Review of Systems - Denies chest pain, sob, n/v, fevers, diarrhea, constipation, no vaginal bleeding, hematuria, dysuria. Physical Exam: General: Alert, not in distress CV: RRR, no murmurs, rubs or gallops Resp: CTAB Pelvic: deferred to OR Labs: FS pending Assessment/Plan: Patient stable and ready for OR. Proceed with scheduled procedure. -- Operative consent signed 2/3, reviewed and all questions answered -- Opioid consent reviewed and signed, ORT low risk for abuse/addiction -- Abx: not indicated -- VTE ppx: 5000u SQH, SCDs -- Dispo: plan same day discharge We discussed opioid consent concerns such as tolerance, addiction and side effects of medication. Rare risks of overdose and noted. We discussed possible crime victimization concerns and safe storage and proper disposal of medication. Opiate consent signed and placed in the patient's chart. Opioid Risk Tool Female Male 1. Family history of Substance Abuse Alcohol [] 1 [] 3 Illegal Drugs [] 2 [] 3 Prescription Drugs [] 4 [] 4 2. Personal History of Substance Abuse Alcohol [] 3 [] 3 Illegal Drugs [] 4 [] 4 Prescription Drugs [] 5 [] 5 3. Age (cristina box if 16-45) [] 1 [] 1 4. History of Preadolescent Sexual Abuse [] 3 [] 0 5. Psychological Disease Attention Deficit Disorder, Obsessive Compulsive D/o, Bipolar, Schizophrenia [] 2 [] 2 Depression [] 1 [] 1 TOTAL: 0 Opioid Risk Category: low risk 0-3 Silvana Moon MD PGY4 06/21/2022 Associated attestation - Keli Eli MD - 06/21/2022 8:03 PM EST Into see patient prior to her surgery. We reviewed the planned procedure. Consents complete and in her chart. Questions answered. documented in this encounter Miscellaneous Notes * Op Note - Keli Eli MD - 06/21/2022 1:21 PM EST [facility] Operative Note Patient Name: Lynda Pedersen : [id number] MR#: [id number] Case Date: 06/21/2022 Surgeon: Surgeon(s) and Role: * Keli Eli MD - Primary * Silvana Moon MD - Resident Preoperative diagnosis: ADNEXAL MASS Postoperative diagnosis: ADNEXAL MASS Procedure(s) (LRB): LAPAROSCOPY, REMOVAL OF ADNEXA (WRVU 11.35) (N/A) Findings: On exam under anesthesia the cervix was surgically absent. Unable to palpate any adnexal or pelvic masses. On laparoscopy there was a smooth walled cystic mass replacing the right adnexa with a normal-looking fallopian tube the uterus cervix and left tube and ovary were surgically absent.There were dense adhesions of the right adnexa to the right pelvic sidewall. This is benign on frozen section. Anesthesia: General Estimated Blood Loss: 25 mL Specimens removed during surgery: Order Name Source Comment Collection Info Order Time CYTOPATHOLOGY NON-GYNECOLOGICAL Pelvic Washings for Permanent [id number] 06/21/2022 1:34 PM Pertinent clinical data and significant therapy: ADNEXAL MASS Clinical impression: Pelvic Washings Procedure Type: Cystoscopy Specimen Type: Pelvic wash SPECIMEN TO PATHOLOGY Please perform frozen section [id number] ADNEXAL MASS Right Fallopian Tube and Right Ovary excision YES, Please perform frozen section No 06/21/2022 1:38 PM Time specimen removed from patient: 1:37 PM Number of tissue samples (in container) 1 Biospecimen to store? No Drains: * No LDAs found * Surgical Closure: Primary Closure - skin incision is completely closed without any wires, ivone, drains or other devices Disposition: awakened from anesthesia, extubated and taken to the recovery room in a stable condition, having suffered no apparent untoward event. Condition: doing well without problems (Please see the Surgical Encounter Summary for any Implant and Specimen details pertinent to this patient.) HPI/Surgical Indications: Lynda Pedersen is a 66 y.o. female who presents in referral for evaluation of a complex right adnexal mass. ?? Patient reports a history of lumbar disc [...] hysterectomy, LSO for endometriosis with an endometrioma. ?? She was seen by her filling and stapling machine operator Dr. Plascencia ([facility]) who ordered tumor markers: Ca 125 7.2, AFP 6.4, bHCG 6.2. ?? I saw Estephanie for a visit in the [facility] and subsequently referred her here for [...] UA which was negative. Denies vaginal bleeding. ?? Today she is with her daughter Carlie. Denies changes in health since her 5L visit. Procedure Description: Informed consent was signed. The patient was taken the operating room she was put sleep under general anesthesia. She is placed in dorsolithotomy position. SCDs were placed. She not receive any antibiotics. A verbal timeout was performed. An exam under anesthesia was performed with findings as noted above. The vagina and perineum were prepped and a Veliz was placed with sterile technique. A sponge stick was placed in the vagina. Attention was turned the abdomen. The eye was prepped and the patient was draped. A small incision was made the base the umbilicus and a variesneedle was inserted. Pneumoperitoneum was obtained low opening pressures. A 5 mm trocar was inserted and diagnostic laparoscopy was performed findings as noted above. The patient was placed in steep Trendelenburg and additional trocars were placed in the left right lower quadrants. The film adhesions the omentum to the anterior abdominal wall were taken down using blunt tip LigaSure. Pelvic washings were obtained. On the right side the retroperitoneal space was entered with a blunt tip LigaSureand the peritoneal incision was then superiorly and inferiorly with electrocautery. The ureter was identified to be densely adherent to the mass. The infundibulopelvic ligament cauterized and transected well away from the ureter sharp laparoscopic scissors were used to carefully take down the adhesi ons of the right ovary to the right pelvic sidewall and ureter this did require a ureteral skeletonized agent in the right side. Once the ureter was completely dissected off the attachments the rightpelvic sidewall 15 Endo Catch bag with blood in the abdomen the specimen was placed in the bag. Thebag edges were delivered through the umbilical incision and the specimen was drained within the bag. This returned benign. There was some oozing from around the ureteral dissection and in order to avoid using heat if Surgiflo was placed in the right retroperitoneal space. The fascia at the umbilical incision was reapproximated 0 Vicryl in interrupted sutures using Mau Brown needle. All incision of the abdomen and pneumoperitoneum was evacuated. The skin was closed with 4 Monocryl subcuticular stitch. All incision of the vagina. The patient tolerated procedure well was awake in the operating room. Sponge and instrument counts were correct x2. Surgical Infection Prevention Bundle Used? No Attestation: Case Date: 06/21/2022 I was present and I participated during the entire procedure (does not need to include opening and closing). KELI ELI MD 06/21/2022 documented in this encounter Plan of Treatment Not on file documented as of this encounter Procedures Procedure Name Priority Date/Time Associated Diagnosis Comments SURGICAL PATHOLOGY REPORT Routine 06/21/2022 1:38 PM EST SPECIMEN TO PATHOLOGY Routine 06/21/2022 1:38 PM EST NON-ENVIRONMENTAL HEALTH SANITARIAN FINAL REPORT Routine 06/21/2022 1:34 PM EST CYTOPATHOLOGY NON-GYNECOLOGICAL Routine 06/21/2022 1:34 PM EST Lap, Rmv Adnexal Structure ([id number]) Yes 06/21/2022 12:49 PM EST ADNEXAL MASS POCT GLUCOSE Routine 06/21/2022 12:36 PM EST documented in this encounter Results * Surgical Pathology Report (06/21/2022 1:38 PM EST) Surgical Pathology Report [id number] ? Location: [facility]; The signing pathologist has (i) examined the relevant preparation(s) for the specimen(s) and (ii) rendered or confirmed the diagnosis(es). . ?Surgical Pathology DIAGNOSIS Right fallopian tube and ovary (salpingo-oophore ctomy): ?? 1. Ovarian serous cystadenoma. ?? 2. Benign fallopian tube. CR-0 Electronically signed by: ?Yadiel YA, Steve Gautam Verified: ??06/28/2022 15:10 ??Pathologist Performed at: ??-[facility] Dept. of Pathology, [place] [address] Sixth Grade Teacher: Liss Shepard MD, FCAP, ??CLIA Certificate: [id number] SPECIMEN(S) SUBMITTED A - Right fallopian tube and ovary, resection ?for frozen section CLINICAL INFORMATION Adnexal mass SPECIMEN PROCESSING A - Labeled/Fixative: Right fallopian tube and right ovary, fresh. Quantity/Size/Gopi ght: Single, 8.0 x 8.0 x 0.5 cm, 43.0 grams (overall). Tissue Description: Intact salpingo-oophorec yanet. RIGHT OVARY ?? Size: 8.0 x 8.0 x 2.5 cm. ?? Outer Surface: [place]-pink, disrupted. ?? Cut Surface: Multiloculated cyst contains clear, ?? thin fluid. Multiple focal areas of thickening of ?? the inner lining. Right Fallopian Tube: 4.0 x 0.6 cm, fimbriated. Noxious Weeds And Pest Inspector sections in 7 cassettes as follows: ?A1: FS1: Focal thickened cyst lining ?A2: Right fallopian tube, fimbriae ?A3: Right fallopian tube, cross sections ?A4-A7: Right ovary cystic lesion ??njrs ?Frozen Section FROZEN SECTION DIAGNOSIS AFS1 - Right fallopian tube and right ovary: ? - Serous cystadenoma. 06/21/22 14:28/jlrob Electronically signed by: ?Jana YA, Bessie Vela Verified: ??06/21/2022 14:30 ??Pathologist Performed at: ??-[facility] Dept. of Pathology, [place] [address] Sixth Grade Teacher: Liss Shepard MD, AP, ??CLIA Certificate: [id number] This intraoperative consultation should be interpreted as a preliminary diagnosis pending review of the entire specimen and special studies, if any. A final Surgical Pathology report will follow this preliminary Frozen Section report(s). [facility] 06/21/2022 1:38 PM EST Keli Eli MD PATHOLOGY/CYTOLOGY ORDERABLES [facility] [place] [address] * Specimen to Pathology (06/21/2022 1:38 PM EST) AP Specimen 06/21/2022 1:38 PM EST 06/21/2022 1:38 PM EST Narrative [facility] - 06/21/2022 1:38 PM EST Specimen requisition ordered. ??Separate Pathology report to follow Keli Eli MD PATHOLOGY/CYTOLOGY ORDERABLES Performing Organization Address City/State/[facility] Co de Phone Number [facility] [place] [address] * Non-Clinical Unit Educator Final Report (06/21/2022 1:34 PM EST) Non-Clinical Unit Educator Final Report [id number] ? Location: [facility]; A The signing pathologist has (i) examined the relevant preparation(s) for the specimen(s) and (ii) rendered or confirmed the diagnosis(es). . ? Non-Clinical Unit Educator Final DIAGNOSIS Negative for Malignancy Electronically signed by: ?Nohemi YA, Flako Logan Verified: ??06/24/2022 14:45 ??Cytopathologist Performed at: ??-[facility] Dept. of Pathology, [place] [address] Sixth Grade Teacher: Liss Shepard MD, AP, ??CLIA Certificate: [id number] DISCUSSION Pelvic wash: Clusters of mesothelial cells present. (Cell block was examined.) CLINICAL INFORMATION Specimen Source : Pelvic wash Pertinent Clinical Data and Significant Therapy: Adnexal mass Clinical Impression : Pelvic washings Pertinent Radiologic Findings ??: (not provided) Gross Description: Received ??fresh, approximately 35 mL total volume of ?? cloudy, colorless fluid, with light flecks. Total Preparation: Liquid-Based Prep 1; Cell Block 1. [facility] 06/21/2022 1:34 PM EST Narrative Authorizing Provider Result Kareem Eli MD PATHOLOGY/CYTOLOGY ORDERABLES Performing Organization Address [facility] Co de Phone Number [facility] [place] [address] * Cytopathology Non-Gynecological (06/21/2022 1:34 PM EST) AP Specimen 06/21/2022 1:34 PM EST 06/21/2022 1:34 PM EST Narrative [facility] - 06/21/2022 1:34 PM EST Specimen requisition ordered. ??Separate Pathology report to follow Authorizing Provider Result Kareem Eli MD PATHOLOGY/CYTOLOGY ORDERABLES Performing Organization Address [facility] Co de Phone Number [facility] [place] [address] * POCT Glucose (06/21/2022 12:36 PM EST) POC Glucose 68 65 - 199 mg/dL [facility] Comment: Supplemental ranges: <140 mg/dL before meals <180 mg/dL all other times of the day Blood 06/21/2022 12:3 6 PM EST 06/21/2022 12:36 PM EST Narrative Authorizing Provider Result Kareem Eli MD POINT OF CARE TEST ORDERABLES Performing Organization Address [facility] Phone Number [facility] [place] [address] documented in this encounter Visit Diagnoses Not on filedocumented in this encounter Administered Medications Inactive Administered Medications - up to 3 most recent administrations Medication Order MAR Action Action Date Dose Rate Site acetaminophen (Tylenol) tablet 1,000 mg 1,000 mg, Oral, ONCE, 1 dose, On Tue06/21/22 at 1215, Administer with SIP of H2O only. Maximum dose of acetaminophen is 4,000 mg from all sources in 24 hours., Day of Surgery (Day of Procedure), Routine Given 06/21/2022 12:11 PM EST 1,000 mg BUpivacaine (pf) (Marcaine) (7.5 mg/mL) 0.75% injection ONCE PRN, Starting on Tue06/21/22 at 1346, Until Tue06/21/22 at 1955, Intra-Operative (Intra-Procedure), Routine Given 06/21/2022 1:46 PM EST 6 mLs 19- Surgical Site heparin (porcine) (5,000 units/1 mL) subcutaneous injection 5,000 Units 5,000 Units, Subcutaneous, ONCE, 1 dose, On Tue06/21/22 at 1230, Routine Given 06/21/2022 12:14 PM EST 5,000 Units HYDROmorphone (Dilaudid) (2 mg/mL) multi-dose injection solution 0.6 mg 0.6 mg, Intravenous, EVERY 10 MIN PRN, Starting on Tue06/21/22 at 1438, Until Tue06/21/22 at 1753, Pain, For Moderate to Severe Pain (6-10 out of 10), Hold for respiratory rate less than 10 per minute. Maximum dose 4 mg over one hour including administrations in the OR. If multiple pain medications are ordered, start with HYDROmorphone and use fentaNYL for breakthrough pain., PACU Recovery, Routine Given 06/21/2022 3:48 PM EST 0.6 mg oxyCODONE (Roxicodone) tablet 5-10 mg 5-10 mg, Oral, EVERY 3 HOURS PRN, Starting on Tue06/21/22 at 1444, Until Tue06/21/22 at 1955, Pain, - If multiple pain medications ordered, use acetaminophen first. - If pain not relieved by acetaminophen first, administer oxycodone. - Initial dose 5 mg. - If pain control not adequate in 60 minutes, give additional 5 mg., Routine Given 06/21/2022 3:29 PM EST 5 mg documented in this encounter Active and Recently Administered Medications Times are shown in EST. Scheduled Medication Order 06/19/2022 06/20/2022 06/21/2022 acetaminophen (Tylenol) tablet 1,000 mg (COMPLETED) 1,000 mg, Oral, ONCE, 1 dose, On Tue06/21/22 at 1215, Administer with SIP of H2O only. Maximum dose of acetaminophen is 4,000 mg from all sources in 24 hours., Day of Surgery (Day of Procedure), Routine 1211 (Given - Provid er: John Wallace RN) heparin (porcine) (5,000 units/1 mL) subcutaneous injection 5,000 Units (COMPLETED) 5,000 Units, Subcutaneous, ONCE, 1 dose, On Tue06/21/22 at 1230, Routine 1214 (Given - Provid er: John Wallace RN) Continuous Medication Order 06/19/2022 06/20/2022 06/21/2022 lactated ringers infusion (CANCELED) 1,000 mL, at 100 mL/hr, Intravenous, CONTINUOUS, Starting on Tue06/21/22 at 1215, Until Tue06/21/22 at 1753, Day of Surgery (Day of Procedure) 1135 (New Bag - Prov ider: Poly Singh MD)1418 (Anesthesia Volume Adjustment - Provider: Poly Singh MD) PRN Medication Order 06/19/2022 06/20/2022 06/21/2022 acetaminophen (Tylenol) tablet 650 mg 650 mg, Oral, EVERY 6 HOURS PRN, Starting on Tue06/21/22 at 1444, Until Tue06/21/22 at 1955, Pain, If multiple pain medications ordered, use acetaminophen first. Maximum dose of acetaminophen is 4000 mg from all sources in 24 hours. When ordered for pain, acetaminophen should be given even when other ordered pain medications are indicated., Routine BUpivacaine (pf) (Marcaine) (7.5 mg/mL) 0.75% injection (CANCELED) ONCE PRN, Starting on Tue06/21/22 at 1346, Until Tue06/21/22 at 1955, Intra-Operative (Intra-Procedure), Routine 1346 (Given - Provid er: Keli Eli MD - Comment: trocar site placement) HYDROmorphone (Dilaudid) (2 mg/mL) multi-dose injection solution 0.6 mg (CANCELED)(Linked Group 1) 0.6 mg, Intravenous, EVERY 10 MIN PRN, Starting on Tue06/21/22 at 1438, Until Tue06/21/22 at 1753, Pain, For Moderate to Severe Pain (6-10 out of 10), Hold for respiratory rate less than 10 per minute. Maximum dose 4 mg over one hour including administrations in the OR. If multiple pain medications are ordered, start with HYDROmorphone and use fentaNYL for breakthrough pain., PACU Recovery, Routine 1548 (Given - Provid er: Erica Jose RN) oxyCODONE (Roxicodone) tablet 5-10 mg 5-10 mg, Oral, EVERY 3 HOURS PRN, Starting on Tue06/21/22 at 1444, Until Tue06/21/22 at 1955, Pain, - If multiple pain medications ordered, use acetaminophen first. - If pain not relieved by acetaminophen first, administer oxycodone. - Initial dose 5 mg. - If pain control not adequate in 60 minutes, give additional 5 mg., Routine 1529 (Given - Provid er: Erica Jose RN) Linked Groups Order Group 1: HYDROmorphone (Dilaudid) (2 mg/mL) multi-dose injection solution 0.4 mg (CANCELED) 0.4 mg, Intravenous, EVERY 10 MIN PRN, Starting on Tue06/21/22 at 1438, Until Tue06/21/22 at 1753, Pain, For Mild to Moderate Pain (1-5 out of 10), Hold for respiratory rate less than 10 per minute. Maximum dose 3 mg over one hour including administrations in the OR. If multiple pain medications are ordered, start with HYDROmorphone and use fentaNYL for breakthrough pain., PACU Recovery, Routine Or HYDROmorphone (Dilaudid) (2 mg/mL) multi-dose injection solution 0.6 mg (CANCELED)Jump to med 0.6 mg, Intravenous, EVERY 10 MIN PRN, Starting on Tue06/21/22 at 1438, Until Tue06/21/22 at 1753, Pain, For Moderate to Severe Pain (6-10 out of 10), Hold for respiratory rate less than 10 per minute. Maximum dose 4 mg over one hour including administrations in the OR. If multiple pain medications are ordered, start with HYDROmorphone and use fentaNYL for breakthrough pain., PACU Recovery, Routine documented in this encounter Care Teams Hoisting Engineer Relationship Specialty Start Date End Date Ava CHACE Singh [address] [place] [address] PCP - General Family Medicine 10/06/17 documented as of this encounter
--- OUTSIDE RECORDS SUMMARY | 2023-11-25 01:16 | XMS_ITS | Encounter Summary ---
[facility] [place] [address] Care Team Providers Care Hospitality Housekeeper Name Role Phone Samantha Escalante APRN Primary Care Provider Encounter Details Date Type Department Care Team (Late st Contact Info) Description 01/26/2022 Ancillary Procedure Radiology at [facility] [address] [place] [id number] Jacinto Apodaca MD [address] [place] [address] Social History Tobacco Use Types Packs/Day Years [...] FILM LIBRARY STORAGE ONLY MR SPINE Routine 01/26/2022 12:00 AM EDT documented in this encounter Results * Film Library- Storage Only MR Spine (01/26/2022 12:00 AM EDT) Narrative [facility] - 02/03/2022 10:16 AM EDT This exam is auto-finalizing. It's purpose is for storage only. Jacinto Apodaca MD IM FILM LIBRARY ORD ERABLES [place], [place] documented in this encounter Visit Diagnoses Not on filedocumented in this encounter Care Teams Hospitality Housekeeper Relationship Specialty Start Date End Date Samantha EscalanteCHACE [address] [place] [address] PCP - General Family Medicine 10/06/17 documented as of this encounter
--- OUTSIDE RECORDS SUMMARY | 2023-11-25 01:16 | XMS_ITS | Encounter Summary ---
[facility] [place] [address] Care Team Providers Care Sas Programmer Analyst Name Role Phone Samantha Escalante APRN Primary Care Provider Encounter Details Date Type Department Care Team (Late st Contact Info) Description 06/23/2022 Telephone [place] [phone] Kristin Mattson RN Social History Tobacco Use Types Packs/Day Years Used Date Smoking Tobacco: Former Smokeless Tobacco: Never Alcohol Use Standard Drinks/Week Comments Never 0 (1 standard drink = 0.6 oz pur e alcohol) Sex and Gender Information Value Date Recorded Sex Assigned at Not on file Gender Identity Not on file Sexual Orientation Not on file documented as of this encounter Miscellaneous Notes * Telephone Encounter - Kristin Mattson RN - 06/23/2022 2:22 PM EST Called and spoke with patient after discussing patient with Dr. Eli. Informed the patient that a prescription for Bactrim DS was sent to the [facility] in [place]. Informed patient that she will be taking this twice daily for 7 days. Advised patient to take a picture of herincisions later today with the help of her granddaughter so that we can compare the redness in caseit increases. Patient verbalized understanding and will take a picture later today. She will pickers material handlers her antibiotics and start taking these. She will call if her symptoms worsen. She denies any further questions at this time. * Telephone Encounter - Kristin Mattson RN - 06/23/2022 11:10 AM EST Received voicemail from patient requesting a call back about redness around her incisions. Called and spoke with patient. She is s/p laparoscopic removal of right cystic adnexal mass on 06/21/22. She noticed a little bit of redness around her 3 incisions yesterday. This morning she noticed the redness has spread (umbilicus incision being the worst with a streak that is about 1 inch by 1/2 inch), the area of redness is tender, swollen, and warm to the touch. Theother two incisions have about 1/4 of an inch of pink and look puffy, but not tender or warm. Patient denies drainage from the incisions, fevers, nausea, vomiting, diarrhea, or body aches. Her surgical pain is well controlled with ibuprofen and tylenol alternated every 4-6 hours. She has not picked up her oxycodone. She did have a BM this morning but will continue stool softeners as she hadto strain to pass the stool today. She is voiding without difficulty. She has been taking daily showers and letting warm soapy water run over her incisions. She was advised not to apply any lotions, ointments, or creams to her incisions as it will dissolve the skin glue in place. Patient is unable to send a picture of her incisions at this time. She will try to do it later withthe help of her granddaughter. Will check with Dr. Jostin Hall in the meantime. If a prescription is needed, she would like this sent to [facility] in [place], [place]. documented in this encounter Plan of Treatment Not on file documented as of this encounter Visit Diagnoses Not on filedocumented in this encounter Care Teams Sas Programmer Analyst Relationship Specialty Start Date End Date Samantha Escalante APRN [facility] [address] [place] [address] PCP - General Family Medicine 10/06/17 documented as of this encounter
--- OUTSIDE RECORDS SUMMARY | 2023-11-25 01:16 | XMS_ITS | Encounter Summary ---
Author Organization [facility] [place] [address] Care Team Providers Care Steam Shovel Oiler Name Role Phone Samantha Escalante APRN Primary Care Provider Encounter Details Date Type Department Care Team (Late st Contact Info) Description 04/15/2022 Ancillary Procedure [place] [address] Samantha Escalante APRN [address] [place], [place] [address] Social History Tobacco Use Types Packs/Day Years [...] Associated Diagnosis Comments FILM LIBRARY STORAGE ONLY ULTRASOUND STUDY Routine 04/15/2022 12:00 AM EST documented in this encounter Results * Film Library- Storage Only Ultrasound Study (04/15/2022 12:00 AM EST) Narrative [facility] - 04/20/2022 9:12 AM EST This exam is auto-finalizing. It's purpose is for storage only. Samantha Escalante APRN IMG FILM LIBRARY OR DERABLES [place], [place] documented in this encounter Visit Diagnoses Not on filedocumented in this encounter Care Teams Steam Shovel Oiler Relationship Specialty Start Date End Date Samantha Escalante APRN [address] [place] [address] PCP - General Family Medicine 10/06/17 documented as of this encounter
--- OUTSIDE RECORDS SUMMARY | 2023-11-25 01:16 | XMS_ITS | Encounter Summary ---
Author Organization [facility] Address [facility] [place] [address] Care Team Providers Care Coding Compliance Manager Name Role Phone Samantha Escalante APRN [...] Expiration Date Visits Re quested Visits Authorized [id number] 1 1 Encounter Details Date Type Department Care Team (Late st Contact Info) Description 08/05/2021 2:21 PM EDT - 08/05/2021 4:36 PM EDT Surgery Operating Room Sheela Holman [address] [place] [address] Jacinto Apodaca MD [address] [place] [address] LAMINECTOMY, FACETECTOMY & FORAMINOTOMY,LUMBAR, ONE LEVEL (WRVU 15.37) Social History Tobacco Use Types Packs/Day Years Used Date Smoking Tobacco: Former Smokeless Tobacco: Never Sex and Gender Information Value Date Recorded Sex Assigned at Not on file Gender Identity Not on file Sexual Orientation Not on file documented as of this encounter Last Filed Vital Signs Vital Sign Reading Time Taken Comments Blood Pressure 98/56 08/05/2021 4:30 PM EDT Pulse 77 08/05/2021 4:30 PM EDT Temperature 36.2 ??C (97.1 ??F) 08/05/2021 4:11 PM ED T Respiratory Rate 19 08/05/2021 4:30 PM EDT Oxygen Saturation 95% 08/05/2021 4:30 PM EDT Inhaled Oxygen Concentration - - Weight 72.6 kg (160 lb) 08/05/2021 1:34 PM EDT Height 149.9 cm (4' 11) 08/05/2021 1:34 PM EDT Body Mass Index 32.32 08/05/2021 1:34 PM EDT documented in this encounter Discharge Instructions * Patient Instructions* Franki Mills PA - 08/05/2021 2:15 PM EDT Full recovery will depend on your having a strong, positive attitude, setting small goals for improvement and working steadily to accomplish each goal. FOLLOW UP APPOINTMENTS: You will be scheduled for a follow-up appointment four to six weeks after surgery with a Physician???s Tangled Yarn Spool Straightener at the surgeon???s office. You will have a follow up appointment with the neurosurgeonin three months. If you have sutures that need to be removed, a suture removal appointment will be made for 10-14 days after surgery. MEDICATIONS: Take your medicine at the time [...] when to stop taking it. Only take lihg-cyc-kbsnuan or prescription medicine for pain, discomfort or fever as directed by your caregiver. Consult your doctor or pharmacist with any questions. NEW MEDICATIONS AT DISCHARGE: []None []Given prescriptions in office preoperatively OR: Medication Dose/Route/ Frequency Prescription given? Reason for medication Medscape monograph discussed []Yes []No []Yes []No []Yes []No []Yes []No []Yes []No []Yes []No PAIN: It is normal to have pain after your surgery; especially in the lower back. This does not mean that the procedure was unsuccessful or that your recovery will be delayed. Leg aching is also not uncommon. This is primarily caused by inflammation of the previously compressed nerve. The discomfort will gradually decrease as the nerve continues to heal. You may also experience muscle spasms across your back and into your legs. Medications will be given to control pain and decrease spasm intensity. Moist heat and/or ice and frequent repositioning may also be helpful. DIET: You may adjust your diet back to normal as your appetite returns. Be sure to drink plenty of fluids, particularly water, and eat whole grain cereals, fruits and fruit juices to combat constipation that is sometimes caused by pain medications. If constipation does occur, an over the counter laxative is acceptable. Call your surgeon if you experience persistent nausea and vomiting. ACTIVITY: Increase your activity slowly. Daily walking is the best exercise. Try to increase your distance a little each day. Go at a pace that doesn???t make you too tired or cause too much pain. It is normal to tire easily for the first week or so after you return home. Swimming after ten to fourteen days is encouraged, if feasible. DO NOT sit for prolonged periods of time for six weeks following your surgery. Brief periods of time, not to exceed thirty minutes are acceptable (meals or using the bathroom). Change positions frequently to help eliminate muscle spasm and aching. When sitting, choose a firm chair that will provide plenty of support. DO NOT lift anything over five pounds. Keep in mind a gallon of milk weighs eight pounds. Do not lift anything that you cannot easily lift with one hand. If you drop something on the floor, pick it up by bending at the knees to lower yourself. DO NOT bend at the waist. ACTIVITY (continued): Sexual relations may be resumed during the recovery period, but positions that strain the back or cause pain should be avoided. Consult your surgeon in regards to your driving status. There are no set time restrictions. Use common sense and do not attempt to resume driving until you feel completely comfortable to drive in an uninhibited manner. It is recommended that you do not drive for the first 1-2 weeks or while taking narcotic pain relievers. You may resume other physical activities including work only after consulting with your treating physician. POST ANESTHESIA/SEDATION: You have received medication for sedation and comfort during your procedure. Because these have notcompletely left your system, please observe the following precautions: Plan to relax for the next several hours. DO NOT drive or operate machinery until the day after your procedure, longer as recommended by yoursurgeon. Avoid alcohol for the next 24 hours. Do not make any important personal or business decisions today. BANDAGE/SHOWERING: You will have Dermabond over the incision (typically a purple glue like substance), with inner sutures that do not need to be removed. The Dermabond will gradually fall off. You may have sutures that require removal. If these are used you will be scheduled for a suture removal appointment within 10 to 14 days of the procedure. You may shower after three to five days. Do NOT scrub the incision. Pat the area dry with a towel after showering. Avoid soaking (baths, hot tubs, swimming, etc) until approximately two weeks after your surgery, when your wound is all the way healed. SEEK IMMEDIATE MEDICAL CARE/CALL YOUR SURGEON IF: There is redness, swelling or increasing pain at the wound. SEEK IMMEDIATE MEDICAL CARE/CALL YOUR SURGEON IF (continued): You notice purulent (colored, pus-like) drainage coming from the wound. You notice a foul smell coming from the wound or bandage. You experience urinary problems. You experience any NEW weakness or numbness in your arms or legs. You develop an oral temperature above 101 degrees F. There is a breaking open of the wound. The edges do not stay together after the sutures or tape hasbeen removed. There is persistent bleeding from an incision. If you have any questions, please call [facility] at [phone], during business hours of Tuesday through Tuesday from 8:00 a.m. until 4:00 p.m. In case of emergency during non-business hours, please call the same main number and follow the prompts to page the neurosurgeon academic interventionist. SMOKING CESSATION INFORMATION: [place] QUITLINE: [place] QUITLINE: [email or web address].GramVaani If you smoke, stop now! Smoking may impede healing. MAKE SURE YOU: Understand these instructions. Will seek medical care if you are feeling poor, or get worse. Will call the surgeon???s office with any questions or concerns at : [phone] Nursing information only: Original document to medical [...] Sig Dispensed Refills Start Date End Date acetaminophen (Tylenol) 500 mg Tablet Take 1,000 mg by mouth every 6 hours as needed for Pain. traMADoL (Ultram) 50 mg Tablet Take 1 tablet by mouth every 6 hours as needed for Pain. 30 tablet 08/05/2021 11/16/2022 baclofen (LIORESAL) 5 mg Tablet TAKE 1 TABLET BY MOUTH THREE TIMES DAILY NEEDED FOR BACK PAIN 04/06/2021 11/16/2022 pantoprazole EC (Protonix) 20 mg Tablet, Delayed Release (E.C.) TAKE 1 TABLET BY MOUTH DAILY 07/31/2020 06/11/2022 documented as of this encounter Progress Notes * Marycarmen Deleon RN - 08/05/2021 2:33 PM EDT Pt had c/o scalp itching. No rash, sore throat or difficulty breathing noted. Vancomycin stopped immediately after complain of itching. Benedryl given by AZUL Wu. Pepcid given IVP by NUBIA Davis. Pt verbalizes relief of itching within five minutes of receiving benedryl and pepcid. Will continue to monitor. 1442 - Pt to OR with anesthesia. No further signs of reaction at this time. Pt verbalizes relief ofscalp itching and denies SOB, difficulty swallowing or other symptoms at this time. documented in this encounter H&P Notes * Franki Mills PA - 08/05/2021 2:14 PM EDT Patient Name: Lynda Pedersen Patient Age: 65 y.o. Birthdate: 1955 Admit date: 08/05/2021 Attending Physician: Jacinto Apodaca MD The patient's history and physical exam have been reviewed and completed. There has been no interval change from that of the pre-operative history and physical exam done within the last 30 days. documented in this encounter Miscellaneous Notes * Op Note - Jacinto Apodaca MD - 08/05/2021 3:03 PM EDT [facility] [place] [address] Patient Name: Lynda Pedersen : [id number] MR#: [id number] Case Date: 08/05/2021 Case Scheduled Time: 1421 Surgeon: Surgeon(s) and Role: * Jacinto Apodaca MD - Primary * Franki Mills PA - Physician Tangled Yarn Spool Straightener Preoperative diagnosis: SPONDYLOSIS DDD Postoperative diagnosis: SPONDYLOSIS DDD Actual procedure: Right L5-S1 hemilaminectomy, medial facetectomy, lateral recess decompression, [id number], microsurgical discectomy. Use of the high- powered operative microscope required for lysis of adhesions and decompression of the thecal sac and nerve root. Intraoperative fluoroscopy. Anesthesia: General Estimated Blood Loss: * No values recorded between 08/05/2021 3:03 PM and 08/05/2021 3:50 PM * Specimens removed during surgery: None Drains: * [...] Specimen details pertinent to this patient.) Findings: Multifactorial right lateral recess stenosis was identified and thoroughly decompressed. We performed a foraminotomy along the course of the S1 nerve root. The disc material at this level was constrained by the ligament and was sclerotic and partially calcified requiring considerable effort to back to the osteophyte down into the disc space and remove it. Thorough decompression was accomplished ultimately. Correct level confirmed at multiple points throughout the surgery with intraoperative fluoroscopy and of course the intraoperative findings. No complications or problems. No csf. No unusual bleeding. No motor discharges. Sponge and needle counts correct. Surgical Indications: Lynda Pedersen is a 65 y.o. year old female who is suffering from symptoms thought to arise from multifactorial stenosis of the right lateral recess at L5-S1. Please refer to myoffice notes for details of presentation, findings on exam, and medical decision making. she has requested that we consider surgical treatment of this condition. Pros and cons, rationale and risks, options and alternatives have been thoroughly reviewed. The patient acknowledges the extensive list of risk of this [...] of this, she requests that we proceed withoperation. Procedure Description: Lynda Pedersen was brought into the operating room. she underwent induction of a general endotracheal anesthetic, positioned prone and padded appropriately. The back was then prepped and draped in usual sterile fashion. We paused to confirm the patient's name and identifying information, site and type of surgery to be performed, presence of films if needed, availability of all anticipated necessary equipment and implants, administration of antibiotics and discussion of all other data relevant and required by the preoperative check-list. Once this had all been confirmed,we proceeded to localize the operative level fluoroscopically. Incision was made in the midline to allow access to the operative level. Dissection of the subcutaneous tissues was carried out using the monopolar electrocautery. A self retaining retractor was inserted. We opened the lumbar fascia in the midline, preserving the interspinous ligament. We then elevated the paraspinal musculature on the right side at the L 5/S1 level. This was done in the subpereosteal plane. A [place] retractor was utilized to maintain our exposure. We confirmed our level again with the fluoroscope. We brought in the high-powered operative microscope. Hemilaminotomy was performed along with a limited medial facetectomy. The facet joint was overgrown leading to bony stenosis of the lateral recess. The ligamen conor flavum was opened and removed in piecemeal fashion. It too was hypertrophic and partially calcified. Under the microscope, we were able to mobilize the thecal sac and nerve root carefully removing adhesions, thereby exposing the disc herniation. The disc material constrained by the posterior longitudinal ligament. It was chronically sclerotic and calcified. This was not a free fragment disc herniation but a subligamentous chronic protrusion. Disc material was removed and the nerve root and thecal sac sufficiently decompressed. We entered the disc space and debulked it of any readily material. We then followed the course of the S1 nerve root unroofing it to its exit below the pedicle of S 1. Please see the Findings section for additional detail. We inspected thoroughly to ensure complete hemostasis. The dura was soft and pulsatile. There was no CSF seen. The retractors were released. The soft tissues were inspected to ensure complete hemostasis. We then infiltrated the paraspinal musculature, subcutaneous and subcuticular tissues with 0.5% bupivacaine. The wound was flushed thoroughly with antibiotic irrigant. The effluent was crystal clear. Fentanyl epidural anesthetic was instilled. The lumbar fascia was reapproximated with interrupted 2-0 Vicryl sutures. The subcutaneous tissues were closed with inverted 2-0 Vicryl sutures. The subcuticular layer was closed with inverted 3-0 Vicryl sutures. The skin edges were approximated with Dermabond, Benzoin and paper tape. The patient was then allowed to awaken from anesthetic and transferred to the post-anesthesia care unit in stable condition. Infection Bundle used? N/A Franki Mills PA-C worked under my direction for the duration of the operative session. The technician assistant adequately prepped the operative site and maintained the best possible exposure of anatomy incident to the procedure. Jacinto Apodaca MD 08/05/2021 * Consult Note - Ming Bull CRNA - 08/05/2021 2:27 PM EDT Pt with top of head itching and mild erythematous rash to front upper chest, facial flushing. Benadryl and pepcid given to good effect. VSS, pt mentating well, no respiratory sx. Most likely 2/2 infusion rate of vancomycin. documented in this encounter Plan of Treatment Not on file documented as of this encounter Procedures Procedure Name Priority Date/Time Associated Diagnosis Comments XR FLUORO NO RAD <1HR - OR USE Routine 08/05/2021 3:44 PM EDT Laminec/Facetect/Fo alissa, Lumbar 1 Seg (28570) 08/05/2021 2:41 PM EDT SPONDYLOSIS DDD documented in this encounter Results * XR [...] MAR Action Action Date Dose Rate Site BUpivacaine (pf) (Marcaine) (5 mg/mL) 0.5% injection ONCE PRN, Starting on Tue08/05/21 at 1502, Until Tue08/05/21 at 1848, Intra-Operative (Intra-Procedure), Routine Given 08/05/2021 3:02 PM EDT 20 mLs 19- Surgical Site famotidine (Pepcid) (10 mg/mL) injection 20 mg 20 mg, Intravenous, EVERY 12 HOURS SCHEDULED (2 times per day), First dose on Tue08/05/21 at 1445, Until Discontinued, Day of Surgery (Day of Procedure) Given 08/05/2021 2:28 PM EDT 20 mg famotidine (Pepcid) 20 mg/2 mL injection 1 dose, Starting on Tue08/05/21 at 1426, Until Tue08/05/21 at 1428, Soda, Jeff W.: cabinet override traMADoL (Ultram) tablet 50 mg 50 mg, Oral, EVERY 4 HOURS PRN, Starting on Tue08/05/21 at 1415, Until Tue08/05/21 at 1845, Pain, For moderate to severe pain (4-10), PACU Recovery, Routine Given 08/05/2021 5:49 PM EDT 50 mg vancomycin (Vancocin) 1 gram vial attach to sodium chloride 0.9% 250 mL vial mate 1,000 mg (1 g), Intravenous, at 250 mL/hr, ONCE, 1 dose, On Tue08/05/21 at 1315, Vancomycin may be administered at a rate of 1 gram per 60-90 minutes. Maximum rate of 1 gram per 60 minute., Day of Surgery (Day of Procedure), Routine New Bag 08/05/2021 1:37 PM EDT 1,000 mg 250 mL/hr documented in this encounter Active and Recently Administered Medications Times are shown in EDT. Scheduled Medication Order 08/03/2021 08/04/2021 08/05/2021 famotidine (Pepcid) (10 mg/mL) injection 20 mg (CANCELED) 20 mg, Intravenous, EVERY 12 HOURS SCHEDULED (2 times per day), First dose on Tue08/05/21 at 1445, Until Discontinued, Day of Surgery (Day of Procedure) 1428 (Given - Provid er: Marycarmen Deleon RN) vancomycin (Vancocin) 1 gram vial attach to sodium chloride 0.9% 250 mL vial mate (COMPLETED) 1,000 mg (1 g), Intravenous, at 250 mL/hr, ONCE, 1 dose, On Tue08/05/21 at 1315, Vancomycin may be administered at a rate of 1 gram per 60-90 minutes. Maximum rate of 1 gram per 60 minute., Day of Surgery (Day of Procedure), Routine 1337 (New Bag - Prov ider: Marycarmen Deleon RN)1437 (Due: Stopped - Provider: Marycarmen Deleon RN) Continuous Medication Order 08/03/2021 08/04/2021 08/05/2021 lactated ringers infusion (CANCELED) 1,000 mL, at 50 mL/hr, Intravenous, CONTINUOUS, Starting on Tue08/05/21 at 1330, Until Tue08/05/21 at 1845, Day of Surgery (Day of Procedure) 1441 (New Bag - Prov ider: Ming Bull, AZUL) PRN Medication Order 08/03/2021 08/04/2021 08/05/2021 BUpivacaine (pf) (Marcaine) (5 mg/mL) 0.5% injection (CANCELED) ONCE PRN, Starting on Tue08/05/21 at 1502, Until Tue08/05/21 at 1848, Intra-Operative (Intra-Procedure), Routine 1502 (Given - Provid er: Jacinto Apodaca MD) traMADoL (Ultram) tablet 50 mg (CANCELED) 50 mg, Oral, EVERY 4 HOURS PRN, Starting on Tue08/05/21 at 1415, Until Tue08/05/21 at 1845, Pain, For moderate to severe pain (4-10), PACU Recovery, Routine 1749 (Given - Provid er: Tashi Pérez RN) No Frequency Medication Order 08/03/2021 08/04/2021 08/05/2021 clindamycin (Cleocin) 150 mg/mL injection 1 dose, Starting on Tue08/05/21 at 1435, Until Tue08/05/21 at 2056, iMng Bull. (hot dipper): cabinet override 1445 (Due) documented in this encounter Care Teams Coding Compliance Manager Relationship Specialty Start Date End Date Samantha Escalante APRN [address] [place] [address] [address] [place] [address] PCP - General Family Medicine 10/06/17 documented as of this encounter
--- OUTSIDE RECORDS SUMMARY | 2023-11-25 01:16 | XMS_ITS | Encounter Summary ---
Author Organization [facility] [place] [address] Care Team Providers Care Brewer Helper Name Role Phone Samantha Escalante APRN Primary Care Provider Reason for Visit * Auth/Cert (Routine) Specialty Diagnoses / Procedures Referred By Wai del castillo Referred To Contact Diagnoses BILATERAL SI JOINT DYSFUNCTION Procedures PRO ARTHRODESIS SACROILIAC JOINT PERCUTANEOUS Jacinto Apodaca MD [address] [place] [address] Referral ID Status Reason Start Date Expiration Date Visits Re quested Visits Authorized [id number] 10/26/2022 1 1 Encounter Details Date Type Department Care Team (Latest Contact Info) Description 11/17/2022 11:10 AM EDT - 11/17/2022 4:12 PM EDT Hospital Encounter Post Acute Care Unit at [facility] [address] [place] [address] Jacinto Apodaca MD [address] [address] Disorder of sacrum Discharge Disposition: Home Social History Tobacco Use Types Packs/Day Years [...] post-operative follow up appointment with your surgeon/physician???s access services assistant scheduled. If you have any questions, [...] when to stop taking it. Only take tygp-hmd-gbjxtfy or prescription medicine for pain, discomfort or [...] condition, questions or concerns. SMOKING CESSATION INFORMATION: [place] QUITLINE: [place] QUITLINE: [email or web address].[email or web address] If you smoke, it is recommended that you stop now! MAKE SURE YOU: Understand these instructions. Will seek medical care if you are feeling poor, or get worse. Will call the surgeon???s office with any questions or concerns at : [phone] Nursing information only: Original document to medical [...] Apodaca MD - 11/17/2022 1:08 PM EDT [facility] [place] Operative Note [facility] [address] [place] [address] Patient Name: Lynda Pedersen : [id number] MR#: [id number] Case Date: 11/17/2022 Case Scheduled Time: 1340 Surgeon: Surgeon(s) and Role: * Jacinto Apodaca MD - Primary * Denny Fuentes PA - Physician Vice President Of Marketing Preoperative diagnosis: BILATERAL SI JOINT DYSFUNCTION Postoperative diagnosis: BILATERAL SI JOINT DYSFUNCTION Actual procedure: Bilateral SI joint instrumented fusion using [place] screws, locally harvested bone, and bone morphogenic [...] left iliac crest. We then mounted the Stealth arc and obtained a CT scan. We imported the CTinto the mon.kialth station and planned our surgical trajectories. We [...] awl-tip tap is utilized to create a spray pilot hole under live image guidance. Next the hole is palpated with the image guided probe to ensure no unexpected breach of cortex. Next the [place] bone harvest device and final tap is utilized under live image guidance along the spray pilot hole trajectory. This final hole is palpated again with the image guided probe. The bone harvest device is cleaned of its bone graft which is then implanted into the central channel of the [place] screw along withbone morphogenic sponge. The ends of the [place] screw were capped with demineralized bone matrix [...] the duration of the operative session. The access services assistant adequately prepped the operative site and [...] SI JOINT DYSFUNCTION Arthrodesis Sacroiliac Joint Percutaneous (27268) 11/17/2022 12:48 PM EDT BILATERAL SI JOINT DYSFUNCTION documented in this encounter Results * XR O-Arm No Rad <1Hr - OR Use (11/17/2022 2:00 PM EDT) Narrative Dicom, Auditing User - 11/17/2022 2:00 PM EDT This exam is auto-finalizing. No interpretation was done. Jacinto Apodaca MD IMG FLUORO ORDERABLE S documented in this encounter Visit Diagnoses Diagnosis Disorder of sacrum Disorders of sacrum documented in this encounter Administered Medications Inactive Administered [...] Given 11/17/2022 3:08 PM EDT 650 mg famotidine (Pepcid) (10 mg/mL) injection 20 mg [...] Routine 1355 (Given - Provid er: Jacinto Apodaca MD) fentaNYL (pf) (50 mcg/mL) multi-dose injection [...] Routine 1436 (Given - Provid er: Delbert Hodges, NUBIA)1449 (Given - Provider: Delbert Hodges RN) LORazepam [...] RN) documented in this encounter Care Teams Brewer Helper Relationship Specialty Start Date End Date Samantha Escalante APRN [address] [place] [address] PCP - General Family Medicine 10/06/17 documented as of this encounter
--- OUTSIDE RECORDS SUMMARY | 2023-11-25 01:16 | XMS_ITS | Encounter Summary ---
Author Organization [facility] [place] [address] Care Team Providers Care Wardrobe Supervisor Name Role Phone Samantha Escalante APRN Primary Care Provider Encounter Details Date Type Department Care Team (Late st Contact Info) Description 06/26/2021 Telephone Dermatology at [address] [place] [address] Marcela Arevalo RN Social History Tobacco Use Types Packs/Day Years Used Date Smoking Tobacco: Former Smokeless Tobacco: Never Sex and Gender Information Value Date Recorded Sex Assigned at Not on file Gender Identity Not on file Sexual Orientation Not on file documented as of this encounter Miscellaneous Notes * Telephone Encounter - Marcela Arevalo RN - 06/26/2021 8:33 AM EST Pt had a shave biopsy on 06/22/2021. Pt called and provided the results. Shave biopsy on lower abdomen came back seborrheic keratosis/benign mole. Per Dr. Parra no further treatment is needed. Pt stated that she understood. Pt. Has a follow up treatment on 10/22/2021 and reminded of her appointment.Pt stated no questions or concerns at this time. documented in this encounter Plan of Treatment Not on file documented as of this encounter Visit Diagnoses Not on filedocumented in this encounter Care Teams Wardrobe Supervisor Relationship Specialty Start Date End Date Ava SamanthaCHACE barrios [address] [place] [address] [address] [facility] [place] [address] PCP - General Family Medicine 10/06/17 documented as of this encounter
--- OUTSIDE RECORDS SUMMARY | 2023-11-25 01:16 | XMS_ITS | Encounter Summary ---
[place] [address] Care Team Providers Care Hand Cutter Apprentice Name Role Phone Samantha Escalante APRN Primary Care Provider Encounter Details Date Type Department Care Team (Late st Contact Info) Description 06/23/2022 Orders Only [place] [address] Kristin Mattson RN Incisional infection Social History Tobacco Use Types Packs/Day Years [...] as of this encounter Visit Diagnoses Diagnosis Incisional infection Other postoperative infection documented in this encounter Care Teams Hand Cutter Apprentice Relationship Specialty Start Date End Date Samantha Escalante APRN [address] [place], [place] [id number] PCP - General Family Medicine 10/06/17 documented as of this encounter
--- OUTSIDE RECORDS SUMMARY | 2023-11-25 01:16 | XMS_ITS | Encounter Summary ---
Author Organization [facility] [place] [address] Care Team Providers Care Packaging Coordinator Name Role Phone Smaantha Escalante APRN Primary Care Provider Encounter Details Date Type Department Care Team (Latest Contact Info) Description 06/21/2022 11:06 AM EST - 06/21/2022 5:40 PM EST Hospital Encounter [place] [id number] Keli Eli MD [facility] [place] [address] Complex ovarian cyst (Primary Dx) Discharge Disposition: Home Social History Tobacco Use [...] Sign Reading Time Taken Comments Blood Pressure 115/73 06/21/2022 5:00 PM EST Pulse 86 06/21/2022 12:00 PM EST Temperature 37.3 ??C (99.1 ??F) 06/21/2022 2:51 PM ES T Respiratory Rate 18 06/21/2022 5:00 PM EST Oxygen Saturation 93% 06/21/2022 5:00 PM EST Inhaled Oxygen Concentration - - [...] PATIENT DISCHARGE INSTRUCTIONS Gynecologic Oncology phone number: [phone] (Nurse ext 4 then 4; appointment ext 1 then 4). After hours and on weekends please call hospital grapple skidder operator at [phone] and ask for Gynecologic Oncologist phone specialist. Call your doctor if you develop: --A fever over 101 degrees --Severe pain --Increasing pain, redness, or discharge at any of your incisions --Heavy vaginal bleeding-soaking through a pad an hour Future Appointments and Orders Future Appointments and Orders Future Appointments Provider Department Dept Phone 07/09/2022 9:40 AM Keli Eli MD Gynecology Oncology at [facility] Arrive at: Telephone Technician Area 3K [phone] Activity level: Let your body guide you. [...] Eli MD - 06/21/2022 1:21 PM EST [facility] Operative Note Patient Name: Lynda Pedersen : [id number] MR#: [id number] Case Date: 06/21/2022 Surgeon: Surgeon(s) and Role: [...] CYTOPATHOLOGY NON-GYNECOLOGICAL Pelvic Washings for Permanent [id number] 06/21/2022 1:34 PM Pertinent clinical data and significant therapy: ADNEXAL MASS Clinical impression: Pelvic Washings Procedure Type: Cystoscopy Specimen Type: Pelvic wash SPECIMEN TO PATHOLOGY Please perform frozen section [id number] ADNEXAL MASS Right Fallopian Tube and Right [...] endometrioma. ?? She was seen by her asian studies professor Dr. Plascencia ([facility]) who ordered tumor markers: Ca 125 7.2, AFP 6.4, bHCG 6.2. ?? I saw Estephanie for a visit in the general captain's assistant clinic and subsequently referred her here for [...] TO PATHOLOGY Routine 06/21/2022 1:38 PM EST NON-MOVE COORDINATOR FINAL REPORT Routine 06/21/2022 1:34 PM EST CYTOPATHOLOGY NON-GYNECOLOGICAL Routine 06/21/2022 1:34 PM EST Lap, Rmv Adnexal Structure ([id number]) Yes 06/21/2022 12:49 PM EST ADNEXAL MASS POCT GLUCOSE Routine 06/21/2022 12:36 PM EST documented in this encounter Results * Surgical Pathology Report (06/21/2022 1:38 PM EST) Surgical Pathology Report [id number] ? Location: [facility]; [facility]; The signing pathologist has (i) examined the relevant preparation(s) for the specimen(s) and (ii) rendered or confirmed the diagnosis(es). . ?Surgical Pathology DIAGNOSIS Right fallopian tube and ovary (salpingo-oophore ctomy): ?? 1. Ovarian serous cystadenoma. ?? 2. Benign fallopian tube. CR-0 Electronically signed by: ?Yadiel YA, Steve Gautam Verified: ??06/28/2022 15:10 ??Pathologist Performed at: ??-[facility] Dept. of Pathology, [place] [id number] Shipping Manager: Liss Shepard MD, FCAP, ??CLIA Certificate: [id number] SPECIMEN(S) SUBMITTED A - Right fallopian tube [...] Fallopian Tube: 4.0 x 0.6 cm, fimbriated. Commercial Representative sections in 7 cassettes as follows: ?A1: FS1: Focal thickened cyst lining ?A2: Right fallopian tube, fimbriae ?A3: Right fallopian tube, cross sections ?A4-A7: Right ovary cystic lesion ??njrs ?Frozen Section FROZEN SECTION DIAGNOSIS AFS1 - Right fallopian tube and right ovary: ? - Serous cystadenoma. 06/21/22 14:28/jlb Electronically signed by: ?Jana YA, Bessie Vela Verified: ??06/21/2022 14:30 ??Pathologist Performed at: ??-[facility] Dept. of Pathology, [place] [address] Shipping Manager: Liss Shepard MD, AP, ??CLIA Certificate: [id number] This intraoperative consultation should be interpreted as a preliminary diagnosis pending review of the entire specimen and special studies, if any. A final Surgical Pathology report will follow this preliminary Frozen Section report(s). [facility] 06/21/2022 1:38 PM EST Keli Eli MD PATHOLOGY/CYTOLOGY ORDERABLES [facility] [place] [address] * Specimen to Pathology (06/21/2022 1:38 PM EST) AP Specimen 06/21/2022 1:38 PM EST 06/21/2022 1:38 PM EST Narrative [facility] - 06/21/2022 1:38 PM EST Specimen requisition ordered. ??Separate Pathology report to follow Keli Eli MD PATHOLOGY/CYTOLOGY ORDERABLES [facility] [place] [address] * Non-Model Maker Plastic Final Report (06/21/2022 1:34 PM EST) Non-Model Maker Plastic Final Report [id number] ? Location: [facility]; [facility]; A The signing pathologist has (i) examined the relevant preparation(s) for the specimen(s) and (ii) rendered or confirmed the diagnosis(es). . ? Non-Model Maker Plastic Final DIAGNOSIS Negative for Malignancy Electronically signed by: ?Nohemi YA, Flako Logan Verified: ??06/24/2022 14:45 ??Cytopathologist Performed at: ??-[facility] Dept. of Pathology, [place] [address] Shipping Manager: Liss Shepard MD, AP, ??CLIA Certificate: [id number] DISCUSSION Pelvic wash: Clusters of mesothelial cells present. (Cell block was examined.) CLINICAL INFORMATION Specimen Source : Pelvic wash Pertinent Clinical Data and Significant Therapy: Adnexal mass Clinical Impression : Pelvic washings Pertinent Radiologic Findings ??: (not provided) Gross Description: Received ??fresh, approximately 35 mL total volume of ?? cloudy, colorless fluid, with light flecks. Total Preparation: Liquid-Based Prep 1; Cell Block 1. [facility] 06/21/2022 1:34 PM EST Narrative Authorizing Provider Result Kareem Eli MD PATHOLOGY/CYTOLOGY ORDERABLES Performing Organization Address [facility] Co de Phone Number [facility] [place] [address] * Cytopathology Non-Gynecological (06/21/2022 1:34 PM EST) AP Specimen 06/21/2022 1:34 PM EST 06/21/2022 1:34 PM EST Narrative [facility] - 06/21/2022 1:34 PM EST Specimen requisition ordered. ??Separate Pathology report to follow Authorizing Provider Result Kareem Eli MD PATHOLOGY/CYTOLOGY ORDERABLES Performing Organization Address [facility] Co de Phone Number [facility] [place] [address] * POCT Glucose (06/21/2022 12:36 PM EST) POC Glucose 68 65 - 199 mg/dL [facility] Comment: Supplemental ranges: <140 mg/dL before meals <180 mg/dL all other times of the day Blood 06/21/2022 12:3 6 PM EST 06/21/2022 12:36 PM EST Narrative Authorizing Provider Result Kareem Eli MD POINT OF CARE TEST ORDERABLES Performing Organization Address [facility] Co nd Phone Number [facility] [place] [address] documented in this encounter Visit Diagnoses Diagnosis Complex ovarian cyst- Primary Other and unspecified ovarian cyst Complex ovarian cyst Other and unspecified ovarian cyst documented in this encounter Administered Medications Inactive Administered Medications - up to 3 most recent administrations Medication Order MAR Action Action Date Dose Rate Site acetaminophen (Tylenol) tablet 1,000 mg 1,000 mg, Oral, ONCE, 1 dose, On 06/21/22 at 1215, Administer with SIP of H2O only. Maximum dose of acetaminophen is 4,000 mg from all sources in 24 hours., Day of Surgery (Day of Procedure), Routine Given 06/21/2022 12:11 PM EST 1,000 mg heparin (porcine) (5,000 units/1 mL) subcutaneous injection [...] Routine 1214 (Given - Provid er: John A Rodrigo, RN) Continuous Medication Order 06/19/2022 06/20/2022 06/21/2022 [...] Routine documented in this encounter Care Teams Packaging Coordinator Relationship Specialty Start Date End Date Samantha Escalante APRN [address] [place] [address] PCP - General Family Medicine 10/06/17 documented as of this encounter
--- OUTSIDE RECORDS SUMMARY | 2023-11-25 01:16 | XMS_ITS | Encounter Summary ---
[place] [address] Care Team Providers Care Supervisor Sintering Plant Name Role Phone Samantha Escalante APRN Primary Care Provider Reason for Referral * Diagnostic Test (Routine) - Closed Specialty Diagnoses / Procedures Referred By Wai t Referred To Contact Radiology Diagnoses Spondylosis of lumbosacral region, unspecified spinal osteoarthritis complication status Low back pain, unspecified back pain laterality, unspecified chronicity, unspecified whether sciatica present Procedures CT Guided Injection SI Joint Jacinto Apodaca MD [address] [place] [address] [facility] [place] [address] Referral ID Status Reason Start Date Expiration Date V isits Requested Visits Authorized [id number] Closed Specialty Service Requested 06/15/2022 12/14/2023 1 1 Reason for Visit * Diagnostic Test (Routine) - Closed Specialty Diagnoses / Procedures Referred By Wai t Referred To Contact Radiology Diagnoses Spondylosis of lumbosacral region, unspecified spinal osteoarthritis complication status Low back pain, unspecified back pain laterality, unspecified chronicity, unspecified whether sciatica present Procedures CT Guided Injection SI Joint Jacinto Apodaca MD [address] [place] [address] [facility] [place] [address] Referral ID Status Reason Start Date Expiration Date V isits Requested Visits Authorized [id number] Closed Specialty Service Requested 06/15/2022 12/14/2023 1 1 Encounter Details Date Type Department Care Team (Latest Contact Info) Description 07/13/2022 10:04 AM EST - 07/13/2022 11:59 PM [facility] Hospital [place] [address] Jacinto Apodaca MD [address] [place] [address] Spondylosis of lumbosacral region, unspecified spinal osteoarthritis complication status; Low back pain, unspecified back pain laterality, unspecified chronicity, unspecified whether sciatica present Discharge Disposition: Home Social History Tobacco Use Types Packs/Day Years Used Date Smoking Tobacco: Former Smokeless Tobacco: Never Alcohol Use Standard Drinks/Week Comments Never 0 (1 standard drink = 0.6 oz pur e alcohol) Sex and Gender Information Value Date Recorded Sex Assigned at Not on file Gender Identity Not on file Sexual Orientation Not on file documented as of this encounter Medications at Time of Discharge [...] 04/06/2021 11/16/2022 documented as of this encounter Plan of Treatment Not on file documented as of this encounter Procedures Procedure Name Priority Date/Time Associated Diagnosis Comments CT GUIDED INJECTION SI JOINT Routine 07/13/2022 10:47 AM EST Spondylosis of lumbosacral region, unspecified spinal osteoarthritis complication status Low back pain, unspecified back pain laterality, unspecified chronicity, unspecified whether sciatica present documented in this encounter Results * CT Guided Injection SI Joint (07/13/2022 10:47 AM EST) Anatomical Region Laterality Modality Computed Tomogra phy Impressions 07/13/2022 11:21 AM EST Successful bilateral SI joint injections. I, Ming Maki MD, was present for critical portions of the procedure including site selection, needle placement, and was immediately available throughout. I have personally reviewed the image(s) and the resident's interpretation and agree with the findings, Ming Maki MD at 07/13/2022 11:21 AM Thank you for letting us participate in the care of this patient. ??If you are a health care provider and have any questions regarding this report, please contact the number below. ??For patients who have questions please contact the health home care music therapist that requested your imaging first. ? Narrative 07/13/2022 11:21 AM EST EXAMINATION: CT GUIDED INJECTION SI JOINT ? CLINICAL HISTORY: bilat si joint - dx/tx; please record pre/post pain levels on vas. COMPARISON: MRI lumbar spine 01/26/2022 PROCEDURE: Informed consent was obtained. Preprocedure timeout was performed. The patient was positioned prone on the CT table. The overlying skin was prepped and draped in a sterile fashion. 1% lidocaine was used for skin anesthesia. Under CT guidance two 20-gauge 3.5 inch needles were advanced into the bilateral SI joints respectively. A mixture of 5 mg of bupivicaine and 5 mg dexamethasone was injected into each SI joint. The needles were then removed and a bandage was applied. There was no immediate post procedure complications. Preprocedure pain score: 4 out of 10 Procedure pain score: 0 out of 10 Operators: Fellow: Teresita Cardoza MD Attending: Ming Maki MD Procedure Note Ming Maki MD - 07/13/2022 EXAMINATION: CT GUIDED INJECTION SI JOINT CLINICAL HISTORY: bilat si joint - dx/tx; please record pre/post painlevels on vas. COMPARISON: MRI lumbar spine 01/26/2022 PROCEDURE: Informed consent was obtained. Preprocedure timeout was performed. Thepatient was positioned prone on the CT table. The overlying skin was prepped anddraped in a sterile fashion. 1% lidocaine was used for skin anesthesia. Under CT guidance two 20-gauge 3.5 inch needles were advanced into thebilateral SI joints respectively. A mixture of 5 mg of bupivicaine and 5 mgdexamethasone was injected into each SI joint. The needles were then removed and abandage was applied. There was no immediate post procedure complications. Preprocedure pain score: 4 out of 10 Procedure pain score: 0 out of 10 Operators: Fellow: Teresita Cardoza MD Attending: Ming Maki MD IMPRESSION Successful bilateral SI joint injections. I, Ming Maki MD, was present for critical portions of the procedure including site selection, needle placement, and was immediatelyavailable throughout. I have personally reviewed the image(s) and the resident's interpretationand agree with the findings, Ming Maki MD at 07/13/2022 11:21 AM Thank you for letting us participate in the care of this patient. If youare a health care provider and have any questions regarding this report,please contact the number below. For patients who have questions please contactthe health home care music therapist that requested your imaging first. Jacinto Apodaca MD IMG CT ORDERABLES documented in this encounter Visit Diagnoses Diagnosis Spondylosis of lumbosacral region, unspecified spinal osteoarthritis complication status Low back pain, unspecified back pain laterality, unspecified chronicity, unspecified whether sciatica present documented in this encounter Administered Medications Inactive Administered Medications - up to 3 most recent administrations Medication Order MAR Action Action Date Dose Rate Site BUpivacaine (pf) (Marcaine) (5 mg/mL) 0.5% injection 0-50 mg 0-50 mg (0-10 mL), Intra-articular, ONCE, 1 dose, On Tue07/13/22 at 1115, Radiology Protocol Medication, Routine Given 07/13/2022 10:45 AM EST 10 mg dexAMETHasone (PF) (Decadron) (10 mg/mL) injection 0-10 mg 0-10 mg, Intra-articular, ONCE, 1 dose, On Tu07/13/22 at 1115, Radiology Protocol Medication, Routine Given 07/13/2022 10:45 AM EST 10 mg lidocaine (Xylocaine) 1% (10 mg/mL) injection 0-100 mg 0-100 mg (0-10 mL), Intra-articular, ONCE, 1 dose, On Tue07/13/22 at 1115, Radiology Protocol Medication, Routine Given 07/13/2022 10:45 AM EST 10 mLs documented in this encounter Care Teams Supervisor Sintering Plant Relationship Specialty Start Date End Date Ava CHACE Singh [address] [place] [address] [address] [place] [address] PCP - General Family Medicine 10/06/17 documented as of this encounter
--- OUTSIDE RECORDS SUMMARY | 2023-11-25 01:16 | XMS_ITS | Encounter Summary ---
Author Organization [facility] [place] [address] Care Team Providers Care Foil Stamp Operator Name Role Phone Samantha Escalante APRN Primary [...] Expiration Date Visits Re quested Visits Authorized [id number] 1 1 Encounter Details Date Type Department Care Team (Latest Contact Info) Description 08/05/2021 12:46 PM EDT - 08/05/2021 6:56 PM EDT Hospital Encounter Post Acute Care Unit at [address] [place] [phone] Jacinto Apodaca MD [address] [facility] [address] Lumbar spondylosis Discharge Disposition: Home Social History Tobacco Use Types Packs/Day Years Used Date Smoking Tobacco: Former Smokeless Tobacco: Never Sex and Gender Information Value Date Recorded Sex Assigned at Not on file Gender Identity Not on file Sexual Orientation Not on file documented as of this encounter Last Filed Vital Signs Vital Sign Reading Time Taken Comments Blood Pressure 122/60 08/05/2021 6:15 PM EDT Pulse 72 08/05/2021 6:15 PM EDT Temperature 36.3 ??C (97.4 ??F) 08/05/2021 5:00 PM ED T Respiratory Rate 16 08/05/2021 6:15 PM EDT Oxygen Saturation 94% 08/05/2021 6:15 PM EDT Inhaled Oxygen Concentration - - [...] six weeks after surgery with a Physician???s Physical Therapy Resident at the surgeon???s office. You will have [...] when to stop taking it. Only take [id number] or prescription medicine for pain, discomfort or [...] If you have any questions, please call [facility] Neurology and Neurosurgery at [phone], during business hours of Tuesday through Tuesday from 8:00 a.m. until 4:00 p.m. In case of emergency during non-business hours, please call the same main number and follow the prompts to page the neurosurgeon environmental quality analyst. SMOKING CESSATION INFORMATION: [place] QUITLINE: [place] QUITLINE: www.quitnet.com If you smoke, stop now! Smoking may impede healing. MAKE SURE YOU: Understand these instructions. Will seek medical care if you are feeling poor, or get worse. Will call the surgeon???s office with any questions or concerns at : [phone] Nursing information only: Original document to medical [...] Apodaca MD - 08/05/2021 3:03 PM EDT [facility] [place] [address] Patient Name: Lynda Pedersen : [id number] MR#: [id number] Case Date: 08/05/2021 Case Scheduled Time: 1421 Surgeon: Surgeon(s) and Role: * Jacinto Apodaca MD - Primary * Franki Mills PA - Physician Physical Therapy Resident Preoperative diagnosis: SPONDYLOSIS DDD Postoperative diagnosis: SPONDYLOSIS DDD Actual procedure: Right L5-S1 hemilaminectomy, medial facetectomy, lateral recess decompression, [id number], microsurgical discectomy. Use of the high- powered [...] the duration of the operative session. The nursing home assistant adequately prepped the operative site and [...] PM EDT Laminec/Facetect/Fo alissa, Lumbar 1 Seg ([id number]) 08/05/2021 2:41 PM EDT SPONDYLOSIS DDD documented in this encounter Results * XR Fluoro No Rad <1Hr - OR Use (08/05/2021 3:44 PM EDT) Narrative Dicom, Auditing User - 08/05/2021 3:44 PM EDT This exam is auto-finalizing. No interpretation was done. Jacinto Apodaca MD IMG FLUORO ORDERABLE S documented in this encounter Visit Diagnoses Diagnosis Lumbar spondylosis Lumbosacral spondylosis without myelopathy documented in this encounter Administered Medications Inactive Administered Medications - up to 3 most recent administrations Medication Order MAR Action Action Date Dose Rate Site famotidine (Pepcid) (10 mg/mL) injection 20 [...] 1441 (New Bag - Prov ider: Ming Bull CRNA) PRN Medication Order 08/03/2021 08/04/2021 08/05/2021 BUpivacaine [...] Tue08/05/21 at 1435, Until Tue08/05/21 at 2056, Ming Bull (hospital medicine director): cabinet override 1445 (Due) documented in this encounter Care Teams Foil Stamp Operator Relationship Specialty Start Date End Date Samantha Escalante APRN [address] [place], [place] [address] [address] [place] [address] PCP - General Family Medicine 10/06/17 documented as of this encounter
--- OUTSIDE RECORDS SUMMARY | 2023-11-25 01:16 | XMS_ITS | Encounter Summary ---
Author Organization [facility] Address [address] [facility] [place] [address] Care Team Providers Care Air Pollution Auditor Name Role Phone Samantha Escalante APRN Primary Care Provider Encounter Details Date Type Department Care Team (Late st Contact Info) Description 06/21/2022 Interpretation Only Radiology [address] [facility] [place] [address] Unknown None Social History Tobacco Use Types Packs/Day Years [...] Procedure Name Priority Date/Time Associated Diagnosis Comments DH OR ENDOSCOPY Routine 06/21/2022 documented in this encounter Results * DH OR Endoscopy (06/21/2022) Anatomical Region Laterality Modality Other 06/21/2022 Narrative 06/21/2022 12:00 AM EST Photographs - Images Procedure Note Unknown - 06/21/2022 Photographs - Images Unknown EA IMAGES documented in this encounter Visit Diagnoses Not on filedocumented in this encounter Care Teams Air Pollution Auditor Relationship Specialty Start Date End Date Adjovu, Samantha, MARKETING PLANNING MANAGER [address] [place] [address] PCP - General Family Medicine 10/06/17 documented as of this encounter
--- OUTSIDE RECORDS SUMMARY | 2023-11-25 01:16 | XMS_ITS | Encounter Summary ---
Author Organization [facility] [place] [address] Care Team Providers Care Classroom Instructor Name Role Phone Samantha Escalante APRN Primary Care Provider Encounter Details Date Type Department Care Team (Late st Contact Info) Description 06/22/2021 3:00 PM EST Office Visit Dermatology at [address] [phone] Willard Navarrete MD [address] [facility] DERMATOLOGY [place], [place] [id number] Seborrheic keratoses Social History Tobacco Use Types Packs/Day Years Used Date Smoking Tobacco: Former Smokeless Tobacco: Never Sex and Gender Information Value Date Recorded Sex Assigned at Not on file Gender Identity Not on file Sexual Orientation Not on file documented as of this encounter Progress Notes * Willard Navarrete MD - 06/22/2021 3:00 PM EST Problem: Irritated seborrheic keratosis Alicia follows up today for removal of a large remaining seborrheic keratosis on the mons pubis area. Physical examination confirms the presence of the lesion is noted in her last dictation. It measures 1.5 x 3.5 cm in size with its long axis oriented horizontally. Assessment and plan: Seborrheic keratosis irritated lower abdomen/mons pubis area 1. After obtaining informed consent site was anesthetized and a shave biopsy was performed 2. Hemostasis with aluminum chloride 3. Wound care instruction supplies given 4. Return to clinic will be in 3 months 5. We will notify patient of her biopsy results in 1 week. CC: Samantha Escalante APRN documented in this encounter Miscellaneous Notes * Addendum Note - Willard Navarrete MD - 06/22/2021 3:00 PM ESTAddended by: WILLARD NAVARRETE on: 06/22/2021 03:22 PM Modules accepted: Level of Service documented in this encounter Plan of Treatment Not on file documented as of this encounter Visit Diagnoses Diagnosis Seborrheic keratoses documented in this encounter Care Teams Classroom Instructor Relationship Specialty Start Date End Date Samantha Escalante APRN [address] [place] [address] [address] [place] [address] PCP - General Family Medicine 10/06/17 documented as of this encounter
--- OUTSIDE RECORDS SUMMARY | 2023-11-25 01:16 | XMS_ITS | Encounter Summary ---
Author Organization [facility] [place] [address] Care Team Providers Care Photogravure Press Operator Name Role Phone Samantha Escalante APRN Primary Care Provider Reason for Visit * Reason Comments Post Op Encounter Details Date Type Department Care Team (Late st Contact Info) Description 07/09/2022 9:40 AM EST Office Visit [place] [phone] Keli Forde MD [facility] [place] [address] Complex ovarian cyst Social History Tobacco Use Types Packs/Day Years [...] Sign Reading Time Taken Comments Blood Pressure 138/90 07/09/2022 9:36 AM EST Pulse 81 07/09/2022 9:36 AM EST Temperature 36.4 ??C (97.5 ??F) 07/09/2022 9:36 AM ES T Respiratory Rate 18 07/09/2022 9:36 AM EST Oxygen Saturation 97% 07/09/2022 9:36 AM EST Inhaled Oxygen Concentration - - Weight 75.8 kg (167 lb) 07/09/2022 9:36 AM EST Height 148.6 cm (4' 10.5) 07/09/2022 9:36 AM ES T Body Mass Index 34.31 07/09/2022 9:36 AM EST documented in this encounter Progress Notes * Keli Forde MD - 07/09/2022 9:40 AM EST Division [place] [address] Postoperative Visit: Patient Active Problem List Diagnosis Code ??? [...] pain M54.50, G89.29 ??? Barretts syndrome K22.70 ??? Complex ovarian cyst N83.299 Subjective: Lynda Pedersen returns to the office today for her postoperative visit. On 06/21/21 she underwent a laproscopic removal of a pelvic mass . Her postoperative course was uncomplicated. She has been doing well since surgery, but did have port site infections following surgery. She has stopped taking narcotic pain medications and is having regular bowel movements. Her energy level is improving and sheis eating well. She denies fevers, chills, dysuria, incisional concerns, abdominal pain, vaginal bleeding, nausea, vomiting or diarrhea. Objective: Vitals: 07/09/22 0936 BP: 138/90 Patient Position: Sitting Pulse: 81 Resp: 18 Temp: 36.4 ??C (97.5 ??F) TempSrc: Temporal SpO2: 97% Weight: 75.8 kg (167 lb) Height: 148.6 cm (4' 10.5) Body mass index is 34.31 kg/m??. Body surface area is 1.77 meters squared. Physical Exam Skin: Comments: Incisions healing well Surgical Pathology: ? Surgical Pathology DIAGNOSIS Right fallopian tube and ovary (salpingo-oophorectomy): ?1. Ovarian serous cystadenoma. ?2. Benign fallopian tube. CR-0 Electronically signed by: ?Yadiel YA, Steve Gautam Verified: ??06/28/2022 15:10 ??Pathologist Performed at: ??-[facility] [place] Dept. of Pathology, [place] [address] Residential Green Building Designer: Liss Shepard MD, AP, ??CLIA Certificate: [id number] Assessment and Plan: Lynda Pedersen is a 66 y.o. with benign ovarian cyst. She is doing well postoperatively and is advised that she may resume full activities at 6 weeks postoperatively. I reviewed her pathology with her and have given her copies of her pathology report and operative note for her records. Given the benign nature of her disease, she thankfully does not require any further gynecologic oncology care and is kindly referred back to her usual providers for ongoing care. KELI FORDE MD documented in this encounter Plan of Treatment Not on file documented as of this encounter Visit Diagnoses Diagnosis Complex ovarian cyst Other and unspecified ovarian cyst documented in this encounter Care Teams Photogravure Press Operator Relationship Specialty Start Date End Date Samantha Escalante APRN [address] [place] [address] [address] [facility] [address] [place] [address] PCP - General Family Medicine 10/06/17 documented as of this encounter
--- OUTSIDE RECORDS SUMMARY | 2023-11-25 01:16 | XMS_ITS | Encounter Summary ---
[facility] [place] [address] Care Team Providers Care Newspaper Correspondent Name Role Phone Samantha Escalante APRN Primary Care Provider Encounter Details Date Type Department Care Team (Latest Contact Info) Description 07/09/2022 Travel Social History Tobacco Use Types Packs/Day [...] on filedocumented in this encounter Care Teams Newspaper Correspondent Relationship Specialty Start Date End Date Samantha Escalante APRN [address] [facility] [place] [address] PCP - General Family Medicine 10/06/17 documented as of this encounter
--- OUTSIDE RECORDS SUMMARY | 2023-11-25 01:16 | XMS_ITS | Encounter Summary ---
Author [facility] [place] [address] Care Team Providers Care Rampman Name Role Phone Samantha Escalante APRN Primary Care Provider Encounter Details Date Type Department Care Team (Late st Contact Info) Description 07/17/2021 External Results Pre-Admission Testing at [facility] [address] [place] [phone] Social History Tobacco Use Types Packs/Day Years Used Date Smoking Tobacco: Former Smokeless Tobacco: Never Sex and Gender Information Value Date Recorded Sex Assigned at Not on file Gender Identity Not on file Sexual Orientation Not on file documented as of this encounter Plan of Treatment Not on file documented as of this encounter Procedures Procedure Name Priority Date/Time Associated Diagnosis Comments LAB SCAN Routine 07/15/2021 ECG SCAN Routine 07/15/2021 documented in this encounter Results * Scan Doc: Lab (07/15/2021) Historical Provider MD MEDIA MGR SCAN EX T ORDR/RSLT * Scan Doc: ECG (07/15/2021) Historical Provider MD MEDIA MGR SCAN EX T ORDR/RSLT documented in this encounter Visit Diagnoses Not on filedocumented in this encounter Care Teams Rampman Relationship Specialty Start Date End Date Samantha Escalante APRN [address] [place] [address] PCP - General Family Medicine 10/06/17 documented as of this encounter
--- OUTSIDE RECORDS SUMMARY | 2023-11-25 01:16 | XMS_ITS | Encounter Summary ---
Author Organization [facility] [place] [address] Care Team Providers Care Enterprise Services Manager Name Role Phone Samantha Escalante CHACE Primary Care Provider [phone] Encounter Details Date Type Department Care Team (Late st Contact Info) Description 06/11/2022 11:30 AM EST Clinical [place] [address] Social History Tobacco Use Types Packs/Day Years [...] as of this encounter Progress Notes * Esteban Cramer, RN - 06/11/2022 11:30 AM EST PAT questionnaire reviewed with patient while in Pre Admission testing. Pre- operative instruction booklet reviewed. Patient verbalizes a good understanding of all information reviewed. Patient has had general anesthesia previously at another facility without a problem. Pre Surgery Covid screening patient response: No PAT Penicillin Allergy Risk Assessment 06/11/2022: Low risk penicillin allergy. OK to receive full dose of cefazolin, cefuroxime, or any 3rd or 4th+ generation cephalosporin. PAT Clinic BREWERY TECHNICIAN to place Allergy referral for formal penicillin allergy evaluation. Patient open to a phone consult from the allergy clinic. PLAN: Testing: Blood work + T&S Procedure date: 07/05 Alcira documented in this encounter Plan of Treatment Not on file documented as of this encounter Visit Diagnoses Not on filedocumented in this encounter Care Teams Enterprise Services Manager Relationship Specialty Start Date End Date Samantha Escalante APRN [address] [place] [address] [address] [facility] [address] [place] [address] PCP - General Family Medicine 10/06/17 documented as of this encounter
--- OUTSIDE RECORDS SUMMARY | 2023-11-25 01:17 | XMS_ITS | Encounter Summary ---
[place] [address] Care Team Providers Care Unload Associate Name Role Phone Samantha Escalante APRN Primary Care Provider Reason for Visit * Diagnostic Test (Routine) - Closed Specialty Diagnoses / Procedures Referred By Wai t Referred To Contact Radiology Diagnoses Coronary artery disease, angina presence unspecified, unspecified vessel or lesion type, unspecified whether [place] or transplanted heart Procedures NM Pharmacologic Stress and Rest Myocardial Perfusion Samantha Escalante APRN [address] [place] [address] [place] [address] Referral ID Status Reason Start Date Expiration Date V isits Requested Visits Authorized [id number] Closed Specialty Service Requested 12/27/2019 06/23/2020 1 1 Encounter Details Date Type Department Care Team (Late st Contact Info) Description 04/01/2020 7:38 AM EST Hospital Encounter [place] [address] Samantha Escalante APRN [address] [place], [place] [id number] Discharge Disposition: Home Social History Tobacco Use Types Packs/Day Years Used Date Smoking Tobacco: Former Smokeless Tobacco: Never Sex and Gender Information Value Date Recorded Sex Assigned at Not on file Gender Identity Not on file Sexual Orientation Not on file documented as of this encounter Medications at Time of Discharge Medication Sig Dispensed Refills Start Date End Date famotidine (Pepcid) 40 mg Tablet every day at bedtime 03/07/2020 022 sucralfate (Carafate) 1 gram Tablet Twice a day 12/24/2019 07/21/2021 hydrOXYzine (ATARAX) 50 mg Tablet Three times a day 03/07/2020 06/04/2021 esomeprazole (NEXIUM) 40 mg Capsule, Delayed Release(E.C.) 0 03/27/2018 10/13/2020 nicotine (NICODERM CQ) 14 mg/24 hr Patch 24 hr 02/20/2018 06/0 11/2020 nicotine (NICODERM CQ) 21 mg/24 hr Patch 24 hr 0 01/23/20180 11/2020 nicotine (NICODERM CQ) 7 mg/24 hr Patch 24 hr 0 04/11/2018 021 ranitidine (ZANTAC) 300 mg Tablet take 1 tablet by mouth at bedtime 0 12/20/2017 10/13/2020 sulfamethoxazole-trimeth oprim (BACTRIM DS) 800-160 mg Tablet take 1 tablet by mouth twice a day for 7 days 0 12/10/2017 10/13/2020 gemfibrozil (LOPID) 600 mg tablet 10/28/2009 10/13/2020 Renner-3 Fatty Acids-Fish Oil (FISH OIL OMEGA 3-6-9) 300-1,000 mg CpDR Take by mouth daily. 10/29/19 10 07/21/2021 documented as of this encounter Plan of Treatment Not on file documented as of this encounter Procedures Procedure Name Priority Date/Time Associated Diagnosis Comments NM PHARMACOLOGIC STRESS AND REST MYOCARDIAL PERFUSION Routine 04/01/2020 8:50 AM EST Coronary artery disease, angina presence unspecified, unspecified vessel or lesion type, unspecified whether [place] or transplanted heart documented in this encounter Visit Diagnoses Not on filedocumented in this encounter Administered Medications Inactive Administered Medications - up to 3 most recent administrations Medication Order MAR Action Action Date Dose Rate Site regadenoson (Lexiscan) injection 0.4 mg 0.4 mg, Intravenous, ONCE, 1 dose, On Tue04/01/20 at 0915, Radiology Contrast, Routine Given 04/01/2020 8:50 AM EST 0.4 mg Right Arm technetium (Tc-99m) sestamibi injection 25 mCi 25 mCi, Intravenous, ONCE PRN, 1 dose, Starting on Tue04/01/20 at 0851, Until Tue04/01/20 at 0850, Per Protocol, Routine Given 04/01/2020 8:50 AM EST 25 mCi Right Arm documented in this encounter Care Teams Unload Associate Relationship Specialty Start Date End Date Kikearely Samantha, CHACE [address] [place] [address] PCP - General Family Medicine 10/06/17 documented as of this encounter
--- OUTSIDE RECORDS SUMMARY | 2023-11-25 01:17 | XMS_ITS | Encounter Summary ---
Author Organization [facility] [place] [address] Care Team Providers Care Horizontal Resaw Operator Name Role Phone Samantha Escalante APRN Primary Care Provider Encounter Details Date Type Department Care Team (Late st Contact Info) Description 04/09/2021 4:30 PM EST Ancillary Procedure [place] [address] Samantha Escalante APRN [address] [place], [place] [id number] Social History Tobacco Use Types Packs/Day Years [...] FILM LIBRARY STORAGE ONLY MR SPINE Routine 04/09/2021 4:29 PM EST documented in this encounter Results * Film Library- Storage Only MR Spine (04/09/2021 4:29 PM EST) Narrative [facility] - 04/09/2021 4:29 PM EST This exam is auto-finalizing. It's purpose is for storage only. Samantha Escalante APRN IMG FILM LIBRARY OR DERABLES [place], [place] documented in this encounter Visit Diagnoses Not on filedocumented in this encounter Care Teams Horizontal Resaw Operator Relationship Specialty Start Date End Date Samantha Escalante APRN [address] [place] [address] PCP - General Family Medicine 10/06/17 documented as of this encounter
--- OUTSIDE RECORDS SUMMARY | 2023-11-25 01:17 | XMS_ITS | Encounter Summary ---
Author Organization [facility] [place] [address] Care Team Providers Care Software Manager Name Role Phone Samantha Escalante APRN Primary Care Provider Encounter Details Date Type Department Care Team (Late st Contact Info) Description 10/30/2008 Orders [place] [address] Jordan Dixon MD [facility] [place] [address] Social History Tobacco Use Types Packs/Day Years Used Date Smoking Tobacco: Never Assessed [facility] Inpatient Questions Answer Date Recorded [...] Associated Diagnosis Comments SURGICAL PATHOLOGY REPORT Routine 10/30/2008 9:14 AM EDT documented in this encounter Results * Surgical Pathology Report (10/30/2008 9:14 AM EDT) Surgical Pathology Report [id number] ? Location: [facility] The signing pathologist has (i) examined the relevant preparation(s) for the specimen(s) and (ii) rendered or confirmed the diagnosis(es). . ?Pathology Surgical Pathology Final Report Clinical Information Specimen Submitted: A - Anal Wart: Rectum Clinical History: Not provided Clinical Diagnosis: Anal wart Gross Description Labeled/Fixativ e: ? Labeled with the patient's name, formalin. Qty/Size/Weight : ?One, 0.6 x 0.5 x 0.3 cm. Tissue Description: ?? Irregular, polypoid portion of rubbery, verrucoid, ?pink-saldana skin. Sections/Proces sing: ??Inked. ??Bisected. ??(T1) ??aje/EJR Microscopic Description Slides reviewed, microscopic description not recorded. Diagnosis Anus, biopsy: Condyloma acuminatum. CR-0 10/31/08 AAS 10/31/08 Verified by: ? Liss Shepard MD ?Pathologist ?(Electronic Signature) The attending pathologist whose signature appears on this report has reviewed all diagnostic slides and has edited the gross and/or microscopic portion of the report in rendering the final pathologic diagnosis. FIONA CARMONA 10/30/2008 9:14 AM EDT Jordan Dixon MD PATHOLOGY/CYTOLOGY O RDERABLES FIONA CARMONA documented in this encounter Visit Diagnoses Not on filedocumented in this encounter Care Teams Software Manager Relationship Specialty Start Date End Date Samantha Escalante APRN [address] [place] [address] PCP - General Family Medicine 10/06/17 documented as of this encounter
--- OUTSIDE RECORDS SUMMARY | 2023-11-25 01:17 | XMS_ITS | Encounter Summary ---
Author Organization [facility] [place] [address] Care Team Providers Care Spring Tester Name Role Phone Samantha Escalante APRN Primary Care Provider Reason for Visit * Consultation (Routine) - Closed Specialty Diagnoses / Procedures Referred By Wai del castillo Referred To Contact Dermatology Diagnoses Disorder of the skin and subcutaneous tissue, unspecified Samantha Escalante APRN [address] [place] [address] [facility] Dermatology [address] [place] [address] Referral ID Status Reason Start Date Expiration Date V isits Requested Visits Authorized [id number] Closed Consult, Test & Treat Connection Center PCP Updated and/or Approved 03/13/2020 03/13/2021 6 6 Encounter Details Date Type Department Care Team (Late st Contact Info) Description 04/04/2020 10:00 AM EST Office Visit Dermatology at [address] [place] [address] Roc Nugent MD [facility] [address] [place] [address] Dermatofibroma; Seborrheic keratoses; Seborrheic keratoses, inflamed; Neoplasm of uncertain behavior of skin Social History Tobacco Use Types Packs/Day Years Used Date Smoking Tobacco: Former Smokeless Tobacco: Never Sex and Gender Information Value Date Recorded Sex Assigned at Not on file Gender Identity Not on file Sexual Orientation Not on file documented as of this encounter Progress Notes * Roc Nugent R - 04/04/2020 10:00 AM EST Images from the original note were not included. DERMATOLOGY - NEW PATIENT NOTE Date of service: 04/04/2020 Lynda Pedersen : 1955, 64 y.o. Chief Complaint: No chief complaint on file. HPI: Lynda Pedersen is a 64 y.o. female referred by Samantha Escalante with the following concerns: - Patient presents for a full skin exam. Patient reports a growing lesion on the vertex scalp, present ~ 2-3 months. Patient denies tenderness or bleeding, but endorses itchiness every once in a while. Patient notes having headaches on the top of her head, unsure if there is any relation. Patient also notes having moles in the scalp and on body she wants evaluated. Relevant Skin History: - Okay to leave detailed message with results? Yes - Skin cancer (including type): No Family History: Melanoma: no Relevant Social History: - Caregiver Meds: Current Outpatient Medications Medication Sig Dispense Refill ??? esomeprazole (NEXIUM) 40 mg Capsule, Delayed Release(E.C.) 0 ??? nicotine (NICODERM CQ) 14 mg/24 hr Patch 24 hr ??? nicotine (NICODERM CQ) 21 mg/24 hr Patch 24 hr 0 ??? nicotine (NICODERM CQ) 7 mg/24 hr Patch 24 hr 0 ??? ranitidine (ZANTAC) 300 mg Tablet take 1 tablet by mouth at bedtime 0 ??? sulfamethoxazole-trimethoprim (BACTRIM DS) 800-160 mg Tablet take 1 tablet by mouth twice a dayfor 7 days 0 ??? gemfibrozil (LOPID) 600 mg tablet ??? [place]-3 Fatty Acids-Fish Oil (FISH OIL OMEGA 3-6-9) 300-1,000 mg CpDR No current facility-administered medications for this visit. Allergies: Allergies Allergen Reactions ??? Codeine Phosphate CIS - Nausea/Vomiting ??? Penicillins CIS - Rash Review of Systems: - General: Feels well - Skin: No other skin concerns. Examination: - Constitutional: Patient was alert, well-appearing and in no noticeable distress. - Full Skin Exam: Skin examination of the scalp, face, ears, neck, back, chest, axillae, abdomen, right and left upper extremities, right and left lower extremities, hands, feet, and buttocks was normal with the exception of the findings listed below. Genitalia not examined. - A nurse/MA was present and on standby during my examination. Diagnosis/Skin findings/Assessment/Plan: #. Seborrheic Keratoses - Scattered, stuck-on, well-demarcated, saldana or brown, waxy or warty papulesc/w SKs on the trunk and extremities - Discussed etiology - Benign. Patient reassured. #. Irritated Seborrheic Keratosis - Stuck-on, well-demarcated, pink warty papules or plaques on pink bases or eroded on the scalp - Combined decision to treat with cryotherapy Procedure Note: Procedure: Destruction of lesions with cryotherapy. Number: 1 Location: as above Discussed procedure and expectations including risks (including risk of hypopigmentation) and benefits. Verbal consent obtained. Frozen with LN2, 15-30 second thaw time, TWICE. There were no complications; the patient tolerated the procedure well. Post-procedure expectations and wound care were reviewed. #. Dermatofibroma - Firm, papules with dimple sign c/w DF on the lower extremities - Discussed etiology - Benign. Patient reassured. # Filiform Wart vs SK - 1cm mamillated plaque on vertex scalp - Combined decision to perform shave biopsy Procedure: Skin shave biopsy. Location: vertex scalp Time of procedure: 10:15am Discussed indications for procedure and expectations including risks and benefits. Verbal consent obtained. Skin prepped with alcohol. Local anesthesia with 1% xylocaine, 1/100,000 epinephrine. A sample of the lesion was removed by shave technique to the level of the dermis and submitted to Pathology. Hemostasis obtained (AlCl and/or electrocautery). There were no complications; patient toleratedthe procedure well. Wound dressed. Post-procedure expectations, wound care and activity restrictions reviewed. ?? - Follow-up based on pathology results. RTC: Pending path The following photos were obtained with patient consent: 04/04/2020 Note initiated by ELSIE Rosen. I, ELSIE Rosen, have performed the documentation for this encounter in the presence of and acting as a scribe for Roc Nugent MD. I performed the services which were documented by the scribe, and I agree with the accuracy of the documentation in this encounter. Roc Nugent MD Reviewed and signed by Roc Nugnet MD Resident in Dermatology [facility] Patient seen in conjunction with staff digital sales director: Piero Marc MD Department of Dermatology [facility] * Piero Marc III, MD - 04/04/2020 10:00 AM EST I was the supervising physician working with dermatology resident Dr. Nugent in the dermatology clinic during this patient visit. The level of resident supervision for this patient visit was indirectsupervision with direct supervision immediately available. (definition: [facility] GME Policy Statement on Graduate Medical Education, Supervision of Graduate Medical Trainees) I was immediately available to Dr. Nugent for questions and discussion regarding this visit. I have reviewed his encounter note details and level of service. PIERO MARC III, MD Staff Physician documented in this encounter Plan of Treatment Not on file documented as of this encounter Procedures Procedure Name Priority Date/Time Associated Diagnosis Comments SURGICAL PATHOLOGY REPORT Routine 04/04/2020 10:57 AM EST SPECIMEN TO PATHOLOGY Routine 04/04/2020 10:57 AM EST Neoplasm of uncertain behavior of skin documented in this encounter Results * Surgical Pathology Report (04/04/2020 10:57 AM EST) Surgical Pathology Report [id number] ? Location: [facility] The signing pathologist has (i) examined the relevant preparation(s) for the specimen(s) and (ii) rendered or confirmed the diagnosis(es). . ?Surgical Pathology DIAGNOSIS Vertex scalp, skin shave biopsy ONLY: - ??Verrucous keratosis, inflamed Electronically signed by: ??Wu YA, PhD, [facility] Verified: ??04/07/2020 ?Dermatopatholo gist Performed at: ??-[facility] Dept. of Pathology, [place], [place] SPECIMEN(S) SUBMITTED A - vertex scalp, skin shave biopsy ONLY (1) CLINICAL INFORMATION 1 cm mammillated plaque; filiform wart vs SK SPECIMEN PROCESSING A - Labeled/Fixative : Patient demographics, formalin. Quantity/Size: ??Single, 0.9 x 0.7 x 0.3 cm. Tissue Description: Shave of a pink-white verrucous skin papule. Sections/Process ing: Inked, quadrisected and entirely submitted in 1 cassette labeled A1. ??lyric [facility] 04/04/2020 10:5 7 AM EST Roc Nugent MD PATHOLOGY/CYTOLOGY O [facility] Performing Organization Address City/[facility] Co de Phone Number [facility] [place] [address] * Specimen to Pathology (04/04/2020 10:57 AM EST) AP Specimen 04/04/2020 10:5 7 AM EST 04/04/2020 10:57 AM EST Narrative [facility] - 04/04/2020 10:57 AM EST Specimen requisition ordered. ??Separate Pathology report to follow Piero Marc III, MD PATHOLOGY/CYTOL OGY ORDERABLES [facility] [place] [address] documented in this encounter Visit Diagnoses Diagnosis Dermatofibroma Benign neoplasm of skin, site unspecified Seborrheic keratoses Seborrheic keratoses, inflamed Neoplasm of uncertain behavior of skin documented in this encounter Care Teams Spring Tester Relationship Specialty Start Date End Date Samantha Escalante APRN [address] [place] [address] [address] [place] [address] PCP - General Family Medicine 10/06/17 documented as of this encounter
--- OUTSIDE RECORDS SUMMARY | 2023-11-25 01:17 | XMS_ITS | Encounter Summary ---
Author Organization [facility] [place] [address] Care Team Providers Care Meteorological Equipment Repairer Name Role Phone Samantha Escalante APRN Primary Care Provider Encounter Details Date Type Department Care Team (Late st Contact Info) Description 11/18/2020 Ancillary Procedure [place] [address] Samantha Escalante APRN [address] [place], [place] [address] Social History Tobacco Use Types Packs/Day Years [...] FILM LIBRARY STORAGE ONLY ULTRASOUND STUDY Routine 11/18/2020 12:00 AM EDT documented in this encounter Results * Film Library- Storage Only Ultrasound Study (11/18/2020 12:00 AM EDT) Narrative [facility] - 11/19/2020 1:47 AM EDT This exam is auto-finalizing. It's purpose is for storage only. Samantha Escalante APRN IMG FILM LIBRARY OR DERABLES [place], [place] documented in this encounter Visit Diagnoses Not on filedocumented in this encounter Care Teams Meteorological Equipment Repairer Relationship Specialty Start Date End Date Samantha Escalante APRN [address] [place] [address] PCP - General Family Medicine 10/06/17 documented as of this encounter
--- OUTSIDE RECORDS SUMMARY | 2023-11-25 01:17 | XMS_ITS | Encounter Summary ---
Author Organization [facility] [place] [address] Care Team Providers Care Wire Transfer Clerk Name Role Phone Samantha Escalante APRN Primary Care Provider Reason for Visit * Reason Comments Skin Check * Consultation (Routine) - Specialty Diagnoses / Procedures Referred By Wai del castillo Referred To Contact Dermatology Diagnoses Other seborrheic keratosis Seborrheic keratosis Procedures Consult Samantha Escalante APRN [address] [place] [address] Willard Parra MD [address] [place] [address] [place] [address] Referral ID Status Reason Start Date Expiration Date V isits Requested Visits Authorized [id number] 09/28/2017 09/28/2018 1 1 Encounter Details Date Type Department Care Team (Late st Contact Info) Description 04/14/2018 11:00 AM EST Office Visit Dermatology at [address] [place] [id number] Willard Parra MD [address] [place] [address] DERMATOLOGY [place], [place] [id number] Seborrheic keratosis Social History Tobacco Use Types Packs/Day Years Used Date Smoking Tobacco: Former Smokeless Tobacco: Never Sex and Gender Information Value Date Recorded Sex Assigned at Not on file Gender Identity Not on file Sexual Orientation Not on file documented as of this encounter Progress Notes * Willard Parra MD - 04/14/2018 11:00 AM EST Problem: Skin check Alicia is a 62-year-old woman who is referred today by Samantha Escalante for evaluation of numerous new moles growing on her back on the lower abdomen and also within her scalp. She states that she never had these previously. They are also developing under her breasts and are rough and somewhat itchy and really she is concerned about the possibility of skin cancer. She is not sure whether her parents developed the same kind of lesions as they grew a little older. She denies any personal history of skin cancer or melanoma. Physical examination reveals a pleasant 62-year-old woman who has numerous waxy stuck on appearing seborrheic keratoses with various light shades of brown on her back. She has 2 larger seborrheic keratoses which are ovoid and dark black on the lower abdomen just above the inguinal fold on the left.She has a smaller keratoses present on the intramammary chest and on the submammary breast and chest. Examination of her scalp reveals a small seborrheic keratosis present there as well. Examination of the face the chest the back the hands the arms forearms the thighs and the calves otherwise unremarkable. She does have a single dermatofibroma on the right medial thigh. Assessment and plan: Seborrheic keratoses, chest, back, scalp 1. Patient given informational brochure from the [employer] about seborrheic keratoses 2. Patient was reassured about their benign nature 3. No treatment necessary. Discussed the option however that they could be treated with LN 2 x 2 should become symptomatic itchy/rubbed by clothing. 4. Patient patient does not desire this today and she is reassured about her benign examination will return to clinic as needed. CC: Samantha Escalante APRN documented in this encounter Plan of Treatment Not on file documented as of this encounter Visit Diagnoses Diagnosis Seborrheic keratosis Other seborrheic keratosis documented in this encounter Care Teams Wire Transfer Clerk Relationship Specialty Start Date End Date Samantha Escalante APRN [address] [place] [address] PCP - General Family Medicine 10/06/17 documented as of this encounter
--- OUTSIDE RECORDS SUMMARY | 2023-11-25 01:17 | XMS_ITS | Encounter Summary ---
Author Organization [facility] [place] [address] Care Team Providers Care Eclectic Doctor Name Role Phone Samantha Escalante APRN Primary Care Provider [phone] Reason for Visit * Reason Comments Skin Lesion Encounter Details Date Type Department Care Team (Late st Contact Info) Description 09/15/2020 11:00 AM EDT Office Visit Dermatology at [address] [address] Frieda Bermudez MD [facility] [address] [place] [address] Seborrheic keratosis, inflamed; Inflamed skin tag Social History Tobacco Use Types Packs/Day Years Used Date Smoking Tobacco: Former Smokeless Tobacco: Never Sex and Gender Information Value Date Recorded Sex Assigned at Not on file Gender Identity Not on file Sexual Orientation Not on file documented as of this encounter Progress Notes * Frieda Bermudez - 09/15/2020 11:00 AM EDT Images from the original note were not included. DEPARTMENT OF DERMATOLOGY Medical Dermatology Clinic Provider: Frieda Bermudez MD Patient's preferred name Lynda Preferred contact method for results [] myDH [] Letter [x] Phone Detailed phone message OK? Yes Are there any other people with whom we may discuss your care? PAST MEDICAL HISTORY Y/N Date, location, treatment Melanoma N Dysplastic nevi N SCC N BCC N AKs N Other relevant past medical history (i.e. eczema, psoriasis, birthmarks, immunosuppression) FAMILY HISTORY Y/N If yes, details Melanoma N NMSC N Other relevant family history SOCIAL HISTORY Occupation: Caregiver History of Present Illness: Lynda Pedersen is a 64 y.o., established patient, last seen on 04/04/2020. Here today for a spot check with the following concerns: - Two skin tags near her rectum she would like removed. These can be itchy and bothersome. - Many large lesions that are itchy and bother her. Most are near her bra area. Medications: Reviewed in eD-H Allergies: Reviewed in eD-H Skin Examination: Focused skin examination of the back, chest and buttocks was normal with the exception of the findings below Assessment/Plan Inflamed Seborrheic Keratosis - Verrucous stuck on papules with surrounding erythema on the back and chest. - I discussed this condition with the patient and explored therapeutic options. I recommended this be treated with LN2, patient is in agreement to this treatment plan. Instructed to call if areas do not resolve as expected or if problems arise. If lesions fail to resolve, further work-up may be needed. Procedure Note: Procedure: Destruction of lesion(s) with cryotherapy. Number: 8 Location: as above Discussed procedure and expectations including risks (including risk of hypopigmentation) and benefits. Verbal consent obtained. Frozen with LN2, 15-30 second thaw time, TWICE. There were no complications; the patient tolerated the procedure well. Post-procedure expectations and wound care were reviewed. Inflamed Skin Tags - Inflamed fleshy pedunculated papules around the rectum x 1 - Due to inflammation, joint decision to treat with LN2 today. Liquid Nitrogen Procedure - two freeze thaw cycles Number of lesions - 1 The patient's consent for liquid nitrogen was obtained. Risks and benefits were explained. The possible need for additional liquid nitrogen was reviewed. Risks of increased pigmentation, decreased pigmentation, blister formation, infection, pain, and recurrence were all discussed. The patient tolerated the procedure well. Wound care was reviewed. RTC: Return in about 4 weeks (around 10/13/2020) for 1 month ISK follow up. Scribe attestation: Alexey Valenzuela LPN has performed the documentation for this encounter in the presence of and acting as a scribe for Frieda Bermudez MD I performed the above scribed service and agree with the accuracy of the documentation in this encounter. Reviewed and signed by: Frieda Bermudez MD Resident in Dermatology [facility] Cosigned by: Piero Marc MD Department of Dermatology [facility] * Piero Marc III, MD - 09/15/2020 11:00 AM EDT I directly supervised Dr. Bermudez during this office visit. Dr. Bermudez presented the history and physical exam to me. I, then, saw and examined this patient with Dr. Bermudez . We reviewed the history and pertinent details and I confirmed the physical findings. I agree with the details of the history and physical exam as documented in Dr. Bermudez's note. PIERO MACR III, MD Staff Physician documented in this encounter Plan of Treatment Not on file documented as of this encounter Visit Diagnoses Diagnosis Seborrheic keratosis, inflamed Inflamed seborrheic keratosis Inflamed skin tag Unspecified hypertrophic and atrophic condition of skin documented in this encounter Care Teams Eclectic Doctor Relationship Specialty Start Date End Date Samantha Escalante APRN [address] [facility] [address] [place] [address] PCP - General Family Medicine 10/06/17 documented as of this encounter
--- OUTSIDE RECORDS SUMMARY | 2023-11-25 01:17 | XMS_ITS | Encounter Summary ---
Author Organization [facility] [place] [address] Care Team Providers Care Bit Tapper Name Role Phone Samantha Escalante APRN Primary Care Provider Encounter Details Date Type Department Care Team (Late st Contact Info) Description 02/05/2021 Telephone [place] [address] Bessie Dorman Social History Tobacco Use Types Packs/Day Years Used Date Smoking Tobacco: Former Smokeless Tobacco: Never Sex and Gender Information Value Date Recorded Sex Assigned at Not on file Gender Identity Not on file Sexual Orientation Not on file documented as of this encounter Miscellaneous Notes * Telephone Encounter - Bessie Dorman - 02/05/2021 9:39 AM EDT Call made to patient pre recall list to see if she would like to reschedule her previously cancelled appointment. Patient states she does not need a visit and requests that her US results from November are sent to her. documented in this encounter Plan of Treatment Not on file documented as of this encounter Visit Diagnoses Not on filedocumented in this encounter Care Teams Bit Tapper Relationship Specialty Start Date End Date Samantha Escalante APRN [address] [place] [address] [address] [place] [address] PCP - General Family Medicine 10/06/17 documented as of this encounter
--- OUTSIDE RECORDS SUMMARY | 2023-11-25 01:17 | XMS_ITS | Encounter Summary ---
Author Organization [facility] [place] [address] Care Team Providers Care Superintendent Laundry Name Role Phone Samantha Escalante APRN Primary Care Provider Reason for Visit * Consultation (Routine) - Closed Specialty Diagnoses / Procedures Referred By Wai del castillo Referred To Contact Gastroenterology Diagnoses Alford's esophagus Procedures Consult Samantha Escalante APRN [address] [place] [address] [facility] [address] [place] [address] Referral ID Status Reason Start Date Expiration Date Visits Re quested Visits Authorized [id number] Closed 03/12/2020 03/12/2021 1 1 Encounter Details Date Type Department Care Team (Late st Contact Info) Description 10/13/2020 1:00 PM EDT Office [place] [address] Thania Lau MD [facility] [place] [address] RUQ pain Social History Tobacco Use Types Packs/Day Years Used Date Smoking Tobacco: Former Smokeless Tobacco: Never Sex and Gender Information Value Date Recorded Sex Assigned at Not on file Gender Identity Not on file Sexual Orientation Not on file documented as of this encounter Last Filed Vital Signs Vital Sign Reading Time Taken Comments Blood Pressure 124/71 10/13/2020 1:06 PM EDT Pulse 88 10/13/2020 1:06 PM EDT Temperature - - Respiratory Rate - - Oxygen Saturation - - Inhaled Oxygen Concentration - - Weight 73.3 kg (161 lb 8 oz) 10/13/2020 1:06 PM EDT Height - - Body Mass Index - - documented in this encounter Progress Notes * Thania Lau - 10/13/2020 1:00 PM EDT Images from the original note were not included. [facility] Division of Gastroenterology and Hepatology Outpatient Consultation Reason for Visit: Alford's esophagus Referred by Samantha Escalante History of Present Illness: Lynda Pedersen is a 64 y.o. female with past medical history significant for obesity, HLD, pre-DM who is referred to GI for BE. Patient reports a history from prior EGD of BE and wanted a GI referral to discuss this diagnosis and future management. Has had two EGD showing BE, last in 2019, negative for dysplasia. Initial EGD done for pyrosis. Patient does endorse RUQ pain which can come on sporadically over last 6-8 months.Non- radiating, worse with palpation or pressure. Pain worse after eating. No N/V. + Distention/bloating. Continues to have pyrosis, worse at night. Waits 3-4 hours after eating dinner before sleeping. Normal BM, no hematochezia/melena. No dysphagia or odynophagia. No F/chills/weight loss. Last colonoscopy 2019 with EGD, wnl. Has been trying to monitor diet, is dairy-free and avoid citrus foods. Diet consists of vegetables (potatoes, salads), meats, breads, desserts, instant coffee. Takes PPI only once in a while because she thinks it makes her bloated; takes it 1 hour before eating. Review of Systems: Constitutional: No weight loss HEENT: No visual changes, URI symptoms Cardio: No chest pain/palpitations Resp: No cough, no SOB Hem/Lymph: no new lumps or bumps on body GI: see HPI : no dysuria Skin: no new rashes Musculoskeletal: no new joint pains Neuro: no new numbness, weakness in extremities All other systems negative except as above in HPI No past medical history on file. No past surgical history on file. Social History: reports that she has quit smoking. She has never used smokeless tobacco. Family History: family history is not on file. Current Outpatient Medications Medication Sig Dispense Refill ??? hydrOXYzine (ATARAX) 50 mg Tablet Three times a day ??? pantoprazole EC (Protonix) 20 mg Tablet, Delayed Release (E.C.) TAKE 1 TABLET BY MOUTH DAILY ??? [place]-3 Fatty Acids-Fish Oil (FISH OIL OMEGA 3-6-9) 300-1,000 mg CpDR (Patient not taking: No sig reported) No current facility-administered medications for this visit. Allergies Allergen Reactions ??? Omeprazole Other reaction(s): Rash, itching all over ??? Bzxraga-Rkb-Wao Reductase Inhibitors Other reaction(s): MUSCLE ACHES ??? Codeine Phosphate CIS - Nausea/Vomiting ??? Penicillins CIS - Rash ??? Esomeprazole ??? Metronidazole Other reaction(s): DIARRHEA ??? Pantoprazole Physical Examination: BP 124/71 Pulse 88 Wt 73.3 kg (161 lb 8 oz) General: Pleasant, cooperative, no acute distress HEENT: NC/AT, anicteric sclera, MMM Chest: CTAB, no wheeze, rale or rhonchi CVS: Regular rate and rhythm, normal s1/s2, No murmurs, rubs or gallops ABD: soft, normoactive bowel sounds, focal area below ribcage in RUQ of tenderness to palpation with neg. Germain's, non-distended, no hepatosplenomegaly appreciated Extremities: Warm and well perfused. No edema Skin: No rash or lesion, no jaundice Neuro: Grossly intact, moves all extremities. Labs: Reviewed in EDH/Scan Docs 12/2019 Past Endoscopy: 03/2019 EGD Relevant Studies/Imaging: Reviewed in eDH IMPRESSION: Lynad Pedersen is a 64 y.o. female with past medical history significant for obesity, HLD, pre-DM who is referred to GI for pyrosis and known BE. Patient's symptoms appear classic for GERD without red flag symptoms and recent EGD in 2019 showingBE without dysplasia (unknown length). We discussed the implication of her BE including the small but associated risks of esophageal cancer and reasoning for endoscopic surveillance. We also discussed her symptoms which do not seem to warrant more urgent endoscopy, but reviewed lifestyle modification including weight loss, and proper trial of PPI. Her RUQ pain does seem different from her heartburn and on exam, is very focal raising possibility of abdominal wall pathology/ACNES. We will obtain a RUQUS to evaluate for biliary colic, but can also evaluate liver given her mild transaminitis and STEWARD risk factors. RECOMMENDATIONS: -RUQUS -TUMS TID prn -Pantoprazole 40mg QD 30 minutes before a meal -Lifestyle modifications: Elevate the head of the bed Avoid eating within 3 hours before going to bed Eat meals of moderate size and fat content Lose excess weight Reduce intake of caffeine and chocolate -BE surveillance due 4331-2641 -RTC 3 months This case was discussed with Dr. Percy Lau MD Fellow in Gastroenterology and Hepatology [place] [id number] P: [phone] F: [phone] CC Samantha Escalante APRN [address] [place] [address] * Thiago Greer MD - 10/13/2020 1:00 PM EDT I discussed the care of Ms Pedersen with Dr. Lau and I agree with the assessment and plan as outlined in the note from today. documented in this encounter Plan of Treatment Not on file documented as of this encounter Visit Diagnoses Diagnosis RUQ pain Abdominal pain, right upper quadrant documented in this encounter Care Teams Superintendent Laundry Relationship Specialty Start Date End Date Samantha Escalante APRN [address] [place] [address] PCP - General Family Medicine 10/06/17 documented as of this encounter
--- OUTSIDE RECORDS SUMMARY | 2023-11-25 01:17 | XMS_ITS | Encounter Summary ---
[place] [address] Care Team Providers Care Kier Pleater Name Role Phone Samantha Escalante APRN Primary Care Provider Reason for Visit * Diagnostic Test (Routine) - Closed Specialty Diagnoses / Procedures Referred By Wai t Referred To Contact Radiology Diagnoses Coronary artery disease, angina presence unspecified, unspecified vessel or lesion type, unspecified whether tolowa dee-ni' or transplanted heart Procedures NM Pharmacologic Stress and Rest Myocardial Perfusion Samantha Escalante APRN [address] [place] [address] [place] [address] Referral ID Status Reason Start Date Expiration Date V isits Requested Visits Authorized [id number] Closed Specialty Service Requested 12/27/2019 06/23/2020 1 1 Encounter Details Date Type Department Care Team (Late st Contact Info) Description 04/01/2020 7:38 AM EST Hospital Encounter [place] [address] Samantha Escalante APRN [address] [place], [place] [id number] Discharge Disposition: Home Social History Tobacco Use [...] 14 mg/24 hr Patch 24 hr 02/20/2018 060 11/2020 nicotine (NICODERM CQ) 21 mg/24 hr [...] gemfibrozil (LOPID) 600 mg tablet 10/28/2009 10/13/2020 [place]-3 Fatty Acids-Fish Oil (FISH OIL OMEGA 3-6-9) [...] unspecified vessel or lesion type, unspecified whether tolowa dee-ni' or transplanted heart documented in this encounter Results * NM Pharmacologic Stress and Rest Myocardial Perfusion (04/01/2020 8:50 AM EST) Anatomical Region Laterality Modality Nuclear Medicine Impressions 04/01/2020 11:32 AM EST No ischemia or scar. ??Left ventricular function is normal. Thank you for letting us participate in the care of this patient. For questions regarding this report, please contact the number below. ? Narrative 04/01/2020 11:32 AM EST EXAMINATION: NM PHARMACOLOGIC STRESS AND REST MYOCARDIAL PERFUSION CLINICAL HISTORY: 54-year-old female referred for preoperative evaluation TECHNIQUE: During rest, 8.2mCi of technetium-99m sestamibi was administered intravenously. Approximately 20 minutes later, SPECT images of the heart were obtained with reconstruction in the short, vertical long and horizontal long axis. The patient then received regadenoson intravenously at a dose of 0.4 mg. 20 seconds later, 25 mCi of technetium-99m sestamibi was administered intravenously. Images of the heart were then again obtained with SPECT reconstruction. A low-dose CT scan was acquired for the purpose of attenuation correction COMPARISON: None FINDINGS: No fixed or reversible perfusion defects are present. Functional analysis: Myocardial function: There is normal wall thickening and wall motion. Left ventricular ejection fraction: 66 % (normal greater than than 50%). INCIDENTAL CT FINDINGS: Coronary calcification in the LAD and circumflex. See separate radiology report for details. Procedure Note Erick Wallace MD - 04/01/2020 EXAMINATION: NM PHARMACOLOGIC STRESS AND REST MYOCARDIAL PERFUSION CLINICAL HISTORY: 54-year-old female referred for preoperativeevaluation TECHNIQUE: During rest, 8.2mCi of technetium-99m sestamibi wasadministered intravenously. Approximately 20 minutes later, SPECT images of the heartwere obtained with reconstruction in the short, vertical long and horizontallong axis. The patient then received regadenoson intravenously at a dose of 0.4 mg.20 seconds later, 25 mCi of technetium-99m sestamibi was administered intravenously. Images of the heart were then again obtained with SPECT reconstruction. A low-dose CT scan was acquired for the purpose of attenuationcorrection COMPARISON: None FINDINGS: No fixed or reversible perfusion defects are present. Functional analysis: Myocardial function: There is normal wall thickening and wall motion. Left ventricular ejection fraction: 66 % (normal greater than than 50%). INCIDENTAL CT FINDINGS: Coronary calcification in the LAD and circumflex. See separate radiologyreport for details. IMPRESSION No ischemia or scar. Left ventricular function is normal. Thank you for letting us participate in the care of this patient. Forquestions regarding this report, please contact the number below. Samantha Escalante APRN IMG NM ORDERABLES documented in this encounter Visit Diagnoses Not on filedocumented in this encounter Care Teams Kier Pleater Relationship Specialty Start Date End Date Samantha Escalante APRN [address] [place] [address] PCP - General Family Medicine 10/06/17 documented as of this encounter
--- OUTSIDE RECORDS SUMMARY | 2023-11-25 01:17 | XMS_ITS | Encounter Summary ---
[facility] [place] [address] Care Team Providers Care Mounter Automatic Name Role Phone Samantha Escalante APRN Primary Care Provider Encounter Details Date Type Department Care Team (Late st Contact Info) Description 04/01/2020 7:38 AM EST Hospital Encounter Non[place] [address] Samantha Escalante APRN [address] [place], [place] [id number] Coronary artery disease, angina presence unspecified, unspecified vessel or lesion type, unspecified whether [place] or transplanted heart Discharge Disposition: Home Social History Tobacco Use [...] 21 mg/24 hr Patch 24 hr 0 01/23/2018 06/0 11/2020 nicotine (NICODERM CQ) 7 mg/24 hr Patch 24 hr 0 04/11/2018 021 ranitidine (ZANTAC) 300 mg Tablet take 1 tablet by mouth at bedtime 0 12/20/2017 10/13/2020 sulfamethoxazole-trimeth oprim (BACTRIM DS) 800-160 mg Tablet take 1 tablet by mouth twice a day for 7 days 0 12/10/2017 10/13/2020 gemfibrozil (LOPID) 600 mg tablet 10/28/2009 10/13/2020 [place]-3 Fatty Acids-Fish Oil (FISH OIL OMEGA 3-6-9) 300-1,000 mg CpDR Take by mouth daily. 10/29/19 10 07/21/2021 documented as of this encounter Plan of Treatment Not on file documented as of this encounter Procedures Procedure Name Priority Date/Time Associated Diagnosis Comments NUCLEAR PHARMACOLOGIC STRESS CARDIOLOGY Routine 04/01/2020 9:16 AM EST Coronary artery disease, angina presence unspecified, unspecified vessel or lesion type, unspecified whether [place] or transplanted heart STRESS TEST SCAN 04/01/2020 12:0 0 AM EST documented in this encounter Results * Nuclear Pharmacologic Stress Cardiology (04/01/2020 9:16 AM EST) Anatomical Region Laterality Modality Other Samantha Escalante APRN CARDIAC SERVICES OR DERABLES * SCAN DOC: STRESS TEST (04/01/2020 12:00 AM EST) Anatomical Region Laterality Modality Other Narrative 04/01/2020 12:00 AM EST Ordered by an unspecified provider. Scanning Provider MEDIA MGR SCAN EXT O RDR/RSLT documented in this encounter Visit Diagnoses Diagnosis Coronary artery disease, angina presence unspecified, unspecified vessel or lesion type, unspecified whether [place] or transplanted heart documented in this encounter Care Teams Mounter Automatic Relationship Specialty Start Date End Date Samantha Escalante APRN [address] [place], [place] [address]Y [facility] [address] [place] [address] PCP - General Family Medicine 10/06/17 documented as of this encounter
--- OUTSIDE RECORDS SUMMARY | 2023-11-25 01:17 | XMS_ITS | Encounter Summary ---
Author Organization [facility] [place] [address] Care Team Providers Care Chief Hospital Administrator Name Role Phone Samantha Escalante APRN Primary Care Provider [phone] Reason for Visit * Reason Comments Follow-up Skin Lesion Encounter Details Date Type Department Care Team (Late st Contact Info) Description 10/13/2020 2:20 PM EDT Office Visit Dermatology at [address] [address] Petros Durand MD [facility] [address] [place] [address] Seborrheic keratosis, inflamed Social History Tobacco Use Types Packs/Day Years Used Date Smoking Tobacco: Former Smokeless Tobacco: Never Sex and Gender Information Value Date Recorded Sex Assigned at Not on file Gender Identity Not on file Sexual Orientation Not on file documented as of this encounter Progress Notes * Petros Durand MD - 10/13/2020 2:20 PM EDT Images from the original note were not included. DEPARTMENT OF DERMATOLOGY Medical Dermatology Clinic Provider: Petros Durand MD Patient's preferred name Lynda Preferred contact method for results []? myDH []? Letter [x]? Phone Detailed phone message OK? Yes Are there any other people with whom we may discuss your care? PAST MEDICAL HISTORY Y/N Date, location, treatment Melanoma N ?? Dysplastic nevi N ?? SCC N ?? BCC N ?? AKs N ?? Other relevant past medical history (i.e. eczema, psoriasis, birthmarks, immunosuppression) ? FAMILY HISTORY Y/N If yes, details Melanoma N ?? NMSC N ?? Other relevant family history ? SOCIAL HISTORY Occupation: Caregiver PRE-PROCEDURE SCREENING If no, type N. If yes, include details below Allergy to lidocaine, epinephrine, Dermabond, chlorhexidine, or adhesives: Bleeding disorder or blood thinners: Implanted devices (Pacemaker, defibrillator, deep brain stimulator, cochlear implant): History of Present Illness: Lynda Pedersen is a 64 y.o. year old. Patient returns to clinic today for follow up of inflamed seborrheic keratoses on the trunk. The lesions were treated with LN2 at thelast visit. She notes that they have improved but none of the lesions have resolved completely. Shenotes that the lesions are very itchy and she scratches frequently. She also has some skin tag-like lesions in the bilateral axillae that are very itchy and bothersome. Last visit at [facility] Derm: 09/15/2020 Last visit with this provider: Visit date not found Medications: Reviewed in eD-H Allergies: Reviewed in eD-H Skin Examination: Focused skin examination of the face, trunk, and bilateral axillae was normal with the exception ofthe findings below Assessment/Plan Inflamed Seborrheic Keratosis Exam: Waxy stuck on papules with surrounding erythema on the trunk - I discussed this condition with the patient and explored therapeutic options including clinical observation and LN2. Patient would like to proceed with LN2. Instructed to call if areas do not resolve as expected or if problems arise. If lesions fail to resolve, further treatment may be needed. Procedure Note: Procedure: Destruction of lesion(s) with cryotherapy. Number: 8 Location: as above Discussed procedure and expectations including risks (including risk of hypopigmentation) and benefits. Verbal consent obtained. Frozen with LN2, 15-30 second thaw time, TWICE. There were no complications; the patient tolerated the procedure well. Post-procedure expectations and wound care were reviewed. ?? Other items to document in the assessment/plan if relevant ??? N/A RTC: PRN []Note routed to medical secretary []Recall has been placed in scheduling system []Appointment scheduled at checkout Scribe attestation: Opal Bernabe [facility] who has performed the documentation for this encounter in the presence of and acting as a scribe for Petros Durand MD. I performed the above scribed service and agree with the accuracy of the documentation in this encounter. Reviewed and signed by: Petros Durand MD Dermatology [facility] Patient seen and evaluated with staff librarian special library: Cheyenne Bradford MD Dermatology [facility] * Cheyenne Bradford MD - 10/13/2020 2:20 PM EDT I directly supervised the Dermatology resident during this office visit. The resident presented thehistory and physical exam to me. I then saw and examined this patient with the resident. We reviewed the history and pertinent details and I confirmed the physical findings. I agree with the details of the history and physical exam as documented in the resident's note. CHEYENNE BRADFORD MD Staff Physician documented in this encounter Plan of Treatment Not on file documented as of this encounter Visit Diagnoses Diagnosis Seborrheic keratosis, inflamed Inflamed seborrheic keratosis documented in this encounter Care Teams Chief Hospital Administrator Relationship Specialty Start Date End Date Samantha Escalante APRN [address] [place] [address] PCP - General Family Medicine 10/06/17 documented as of this encounter
--- OUTSIDE RECORDS SUMMARY | 2023-11-25 01:17 | XMS_ITS | Encounter Summary ---
Author [facility] [place] [address] Care Team Providers Care Cotton Breeder Name Role Phone Samantha Escalante APRN Primary Care Provider Encounter Details Date Type Department Care Team (Late st Contact Info) Description 10/14/2020 Telephone [place] [address] Sharonda Durand Social History Tobacco Use Types Packs/Day Years Used Date Smoking Tobacco: Former Smokeless Tobacco: Never Sex and Gender Information Value Date Recorded Sex Assigned at Not on file Gender Identity Not on file Sexual Orientation Not on file documented as of this encounter Miscellaneous Notes * Telephone Encounter - Sharonda Durand - 10/14/2020 2:27 PM EDT Called patient to schedule an Ultrasound to be done in 1-2 months and a 3 month follow-up visit with Dr. Thania Lau-per Dr. Lau 10/13/20 4L Gastroenterology Blue Sheet.-LVM documented in this encounter Plan of Treatment Not on file documented as of this encounter Visit Diagnoses Not on filedocumented in this encounter Care Teams Cotton Breeder Relationship Specialty Start Date End Date Samantha Escalante APRN [address] [place] [address] PCP - General Family Medicine 10/06/17 documented as of this encounter
--- OUTSIDE RECORDS SUMMARY | 2023-11-25 01:17 | XMS_ITS | Encounter Summary ---
[place] [address] Care Team Providers Care Ventilated Rib Fitter Name Role Phone Samantha Escalante APRN Primary Care Provider Reason for Referral * Diagnostic Test (Routine) - Closed Specialty Diagnoses / Procedures Referred By Wai del castillo Referred To Contact Radiology Diagnoses Coronary artery disease, angina presence unspecified, unspecified vessel or lesion type, unspecified whether [place] or transplanted heart Procedures NM Pharmacologic Stress CT Component Samantha Escalante APRN [address] [place] [address] [place] [address] Referral ID Status Reason Start Date Expiration Date V isits Requested Visits Authorized [id number] Closed Specialty Service Requested 12/27/2019 06/23/2020 1 1 Reason for Visit * Diagnostic Test (Routine) - Closed Specialty Diagnoses / Procedures Referred By Wai del castillo Referred To Contact Radiology Diagnoses Coronary artery disease, angina presence unspecified, unspecified vessel or lesion type, unspecified whether [place] or transplanted heart Procedures NM Pharmacologic Stress CT Component Samantha Escalante APRN [address] [place] [address] [place] [address] Referral ID Status Reason Start Date Expiration Date V isits Requested Visits Authorized [id number] Closed Specialty Service Requested 12/27/2019 06/23/2020 1 1 Encounter Details Date Type Department Care Team (Late st Contact Info) Description 04/01/2020 7:39 AM EST - 04/01/2020 11:59 PM EST Hospital En[place] [address] Samantha Escalante, COMMISSIONING ENGINEER [address] [place], [place] [id number] Coronary artery disease, angina presence unspecified, unspecified vessel or lesion type, unspecified whether [place] or transplanted heart Discharge Disposition: Home Social [...] CQ) 14 mg/24 hr Patch 24 hr 02/20/20180 11/2020 nicotine (NICODERM CQ) 21 mg/24 hr Patch 24 hr 0 01/23/2018/0 11/2020 nicotine (NICODERM CQ) 7 mg/24 hr Patch 24 hr 0 04/11/2018 021 ranitidine (ZANTAC) 300 mg Tablet take 1 tablet by mouth at bedtime 0 12/20/2017 10/13/2020 sulfamethoxazole-trimeth oprim (BACTRIM DS) 800-160 mg Tablet take 1 tablet by mouth twice a day for 7 days 0 12/10/2017 10/13/2020 gemfibrozil (LOPID) 600 mg tablet 10/28/2009 10/13/2020 Burnside-3 Fatty Acids-Fish Oil (FISH OIL OMEGA 3-6-9) 300-1,000 mg CpDR Take by mouth daily. 10/29/19 10 07/21/2021 documented as of this encounter Plan of Treatment Not on file documented as of this encounter Procedures Procedure Name Priority Date/Time Associated Diagnosis Comments NM PHARMACOLOGIC STRESS CT COMPONENT Routine 04/01/2020 9:25 AM EST Coronary artery disease, angina presence unspecified, unspecified vessel or lesion type, unspecified whether [place] or transplanted heart documented in this encounter Results * NM Pharmacologic Stress CT Component (04/01/2020 9:25 AM EST) Anatomical Region Laterality Modality Nuclear Medicine Narrative 04/01/2020 11:47 AM EST EXAMINATION: NM PHARMACOLOGIC STRESS CT COMPONENT CLINICAL HISTORY: Study performed for attenuation correction of the myocardial perfusion scan. TECHNIQUE: A limited field of view, non-contrast, non-breath hold, low dose CT scan of the region surrounding the myocardium was performed for the purpose of attenuation correction of the myocardial perfusion scan. COMPARISON: None INCIDENTAL CT FINDINGS: Coronary artery and aortic atherosclerotic calcifications. I have personally reviewed the image(s) and the resident's interpretation and agree with the findings, Silvestre Salmeron MD at 04/01/2020 11:47 AM Thank you for letting us participate in the care of this patient. For questions regarding this report, please contact the number below. ? Electronically signed by: Silvestre Salmeron MD, [facility] ([phone]), at 04/01/2020 11:47 AM Procedure Note Silvestre Salmeron MD - 04/01/2020 EXAMINATION: NM PHARMACOLOGIC STRESS CT COMPONENT CLINICAL HISTORY: Study performed for attenuation correction of themyocardial perfusion scan. TECHNIQUE: A limited field of view, non-contrast, non-breath hold, lowdose CT scan of the region surrounding the myocardium was performed for thepurpose of attenuation correction of the myocardial perfusion scan. COMPARISON: None INCIDENTAL CT FINDINGS: Coronary artery and aortic atherosclerotic calcifications. I have personally reviewed the image(s) and the resident's interpretationand agree with the findings, Silvestre Salmeron MD at 04/01/2020 11:47 AM Thank you for letting us participate in the care of this patient. Forquestions regarding this report, please contact the number below. Electronically signed by: Silvestre Salmeron MD, [facility]([phone]), at 04/01/2020 11:47 AM Samantha Escalante COMMISSIONING ENGINEER IMG NM ORDERABLES documented in this encounter Visit Diagnoses Diagnosis Coronary artery disease, angina presence unspecified, unspecified vessel or lesion type, unspecified whether [place] ir[place] or transplanted heart documented in this encounter Care Teams Ventilated Rib Fitter Relationship Specialty Start Date End Date Samantha Escalante APRN [address] [place] [address] PCP - General Family Medicine 10/06/17 documented as of this encounter
--- OUTSIDE RECORDS SUMMARY | 2023-11-25 01:17 | XMS_ITS | Encounter Summary ---
[place] [address] Care Team Providers Care Human Projectile Name Role Phone Samantha Escalante APRN Primary Care Provider Reason for Referral * Diagnostic Test (Routine) - Closed Specialty Diagnoses / Procedures Referred By Wai t Referred To Contact Radiology Diagnoses Coronary artery disease, angina presence unspecified, unspecified vessel or lesion type, unspecified whether [place] or transplanted heart Procedures NM Pharmacologic Stress and Rest Myocardial Perfusion Samantha Escalante APRN [address] [place] [address] [place] [address] Referral ID Status Reason Start Date Expiration Date V isits Requested Visits Authorized [id number] Closed Specialty Service Requested 12/27/2019 06/23/2020 1 1 Reason for Visit * Diagnostic Test (Routine) - Closed Specialty Diagnoses / Procedures Referred By Wai t Referred To Contact Radiology Diagnoses Coronary artery disease, angina presence unspecified, unspecified vessel or lesion type, unspecified whether [place] or transplanted heart Procedures NM Pharmacologic Stress and Rest Myocardial Perfusion Samantha Escalante APRN [address] [place] [address] [place] [address] Referral ID Status Reason Start Date Expiration Date V isits Requested Visits Authorized [id number] Closed Specialty Service Requested 12/27/2019 06/23/2020 1 1 Encounter Details Date Type Department Care Team (Late st Contact Info) Description 04/01/2020 7:37 AM EST Hospital Encounter [place] [address] Ava, Samantha, MANAGEMENT DEVELOPMENT SPECIALIST [address] [place], [place] [id number] Coronary artery disease, angina presence unspecified, unspecified vessel or lesion type, unspecified whether [place] or transplanted heart Discharge Disposition: Home Social [...] CQ) 14 mg/24 hr Patch 24 hr 02/20/2018/0 11/2020 nicotine (NICODERM CQ) 21 mg/24 hr [...] gemfibrozil (LOPID) 600 mg tablet 10/28/2009 10/13/2020 [place]aring-3 Fatty Acids-Fish Oil (FISH OIL OMEGA 3-6-9) [...] unspecified vessel or lesion type, unspecified whether [place] or transplanted heart documented in this encounter [...] the number below. ? Electronically signed by: Erick Wallace MD, [facility] ([phone]), at 04/01/2020 11:32 AM Narrative 04/01/2020 11:32 AM EST EXAMINATION: NM [...] contact the number below. Electronically signed by: Erick Wallace MD, [facility]([phone]), at 04/01/2020 11:32 AM Samantha Adjovu MANAGEMENT DEVELOPMENT SPECIALIST IMG NM ORDERABLES documented in this encounter Visit Diagnoses Diagnosis Coronary artery disease, angina presence unspecified, unspecified vessel or lesion type, unspecified whether [place] or transplanted heart documented in this encounter Administered Medications Inactive Administered Medications - up to 3 most recent administrations Medication Order MAR Action Action Date Dose Rate Site technetium (Tc-99m) sestamibi injection 0-30 mCi 0-30 mCi, Intravenous, ONCE PRN, 1 dose, Starting on Tue04/01/20 at 0751, Until Tue04/01/20 at 0750, Per Protocol, Radiology Contrast, Routine Given 04/01/2020 7:50 AM EST 8.2 mCi documented in this encounter Care Teams Human Projectile Relationship Specialty Start Date End Date Samantha Escalante, MANAGEMENT DEVELOPMENT SPECIALIST [address] [place] [address] [address] [place] [address] PCP - General Family Medicine 10/06/17 documented as of this encounter
[2023-11-25 12:29] LABS: Abs Immature Grans 0.01 10^3/uL (0.0-0.06); Absolute Basophil Count 0.06 10^3/uL (0.0-0.2); Absolute Eosinophil Count 0.15 10^3/uL (0.0-0.7); Absolute Monocyte Count 0.36 10^3/uL (0.1-0.8); Absolute Neutrophil Count 1.99 10^3/uL (1.2-6.7); Basophils % 1.3 %; Eosinophils % 3.4 %; HCT 43.8 % (36.0-46.0); HGB 14.2 g/dL (11.2-15.7); Immature Grans % 0.2 %; Lymphocytes % 42.5 %; MCH 27.5 pg (27.0-33.0); MCHC 32.4 % (32.0-36.0); MCV 85 fL (80-95); MPV 10.2 fL (8.0-11.0); Monocytes % 8.1 %; Neutrophils % 44.5 %; Platelet Count 241 10^3/uL (130-400); RBC 5.17 10^6/uL (3.93-5.22); RDW-SD 53.1 fL; WBC 4.47 10^3/uL (4.4-10.8)
[2023-11-25 12:40] LABS: Iron 67 ug/dL (50-170); Total Iron Binding Capacity 483 ug/dL (250-450); Transferrin Sat 14 % (15-50)
[2023-11-25 12:48] LABS: ALT 60 U/L (14-59); AST 36 U/L (15-37); Albumin 4.1 g/dL (3.4-5.0); Alkaline Phosphatase 66 U/L (46-116); Anion Gap 8.6 mmol/L (3-11); BUN 13 mg/dL (7-18); Bilirubin, Total 0.47 mg/dL (0.2-1.0); CO2 26.4 mmol/L (21.0-32.0); CREATININE 0.8 mg/dL (0.55-1.02); Calcium 9.3 mg/dL (8.5-10.1); Chloride 103 mmol/L (98-107); Estimated GFR 81.21 (mL/min/1.73m2); Ferritin 31 ng/mL (8-252); Glucose 138 mg/dL (74-106); Potassium 3.9 mmol/L (3.5-5.1); Sodium 138 mmol/L (136-145); Total Protein 7.9 g/dL (6.4-8.2)
[2023-11-25 14:29] LABS: TSH (W/Ref FT4) 4.15 uIU/mL (0.36-3.74); Vitamin D 25 Total 49.5 ng/mL (30-100)
[2023-11-25 14:53] LABS: FREE T4 0.92 ng/dL (0.76-1.46)
[2023-11-25 21:32] LABS: HBs Antibody, Quant <3.1 mIU/mL (See Note); Hep B Surface Ab Negative (See Note); Hepatitis B Core Antibody Negative (Negative); Hepatitis B Surface Antigen Negative (Negative)
[2023-11-25 21:58] LABS: HIV-1/2 Ag & Ab Screen Negative (Negative)
== END 2023-11-25 01:13 | disposition home or self-care (01) ==
LOC: LOS 01:14
PROVIDERS: PCP Nurse Practitioner Family; Visit Provider Surgery
DX: K22.70 Barrett's esophagus without dysplasia; Z11.59 Encounter for screening for other viral diseases; Z11.4 Encounter for screening for human immunodeficiency virus [HIV]; D64.9 Anemia, unspecified; R73.03 Prediabetes; K76.0 Fatty (change of) liver, not elsewhere classified; G47.33 Obstructive sleep apnea (adult) (pediatric); E55.9 Vitamin D deficiency, unspecified
CPT/HCPCS: 36415; 80053; 82306; 86704; 86706; 87340; 87389; 82728; 83540; 83550; 84439; 84443; 85018; 85025

== ENCOUNTER 2023-11-25 18:02 | Outpatient (REF) | payer MEDICARE, SELFPAY ==
[2023-11-25 13:55] LABS: COMMENT (LAB VIEW ONLY) 35.41 mg/dL; Microalb ug/mg Crea 8.8 ug/mg Cr
--- OUTSIDE RECORDS SUMMARY | 2023-11-25 18:07 | XMS_ITS | Encounter Summary ---
[place] [address] Care Team Providers Care Pile Trimmer Name Role Phone Samantha Escalante APRN Primary Care Provider Reason for Referral * Diagnostic Test (Routine) - Closed Specialty Diagnoses / Procedures Referred By Wai t Referred To Contact Radiology Diagnoses Spondylosis of lumbosacral region, unspecified spinal osteoarthritis complication status Low back pain, unspecified back pain laterality, unspecified chronicity, unspecified whether sciatica present Procedures CT Guided Injection SI Joint Jacinto Apodaca MD [address] [place] [address] [facility] [place] [address] Referral ID Status Reason Start Date Expiration Date V isits Requested Visits Authorized [id number] Closed Specialty Service Requested 06/15/2022 12/14/2023 1 1 Reason for Visit * Diagnostic Test (Routine) - Closed Specialty Diagnoses / Procedures Referred By Wai t Referred To Contact Radiology Diagnoses Spondylosis of lumbosacral region, unspecified spinal osteoarthritis complication status Low back pain, unspecified back pain laterality, unspecified chronicity, unspecified whether sciatica present Procedures CT Guided Injection SI Joint Jacinto Apodaca MD [address] [place] [address] [facility] [place] [address] Referral ID Status Reason Start Date Expiration Date V isits Requested Visits Authorized [id number] Closed Specialty Service Requested 06/15/2022 12/14/2023 1 1 Encounter Details Date Type Department Care Team (Latest Contact Info) Description 07/13/2022 10:04 AM EST - 07/13/2022 11:59 PM [facility] Hospital [place] [address] Jacinto Apodaca MD [address] [place] [address] Spondylosis of lumbosacral region, unspecified spinal [...] who have questions please contact the health rn wound care that requested your imaging first. ? Narrative [...] patients who have questions please contactthe health rn wound care that requested your imaging first. Jacinto Apodaca [...] mLs documented in this encounter Care Teams Pile Trimmer Relationship Specialty Start Date End Date Ava CHACE Singh [address] [place] [address] [address] [place] [address] PCP - General Family Medicine 10/06/17 documented as of this encounter
--- OUTSIDE RECORDS SUMMARY | 2023-11-25 18:07 | XMS_ITS | Encounter Summary ---
Author Organization [facility] [place] [address] Care Team Providers Care Gift Packer Name Role Phone Samantha Escalante APRN Primary Care Provider [phone] Reason for Visit * Auth/Cert (Routine) Specialty Diagnoses / Procedures Referred By Wai del castillo Referred To Contact Diagnoses BILATERAL SI JOINT DYSFUNCTION Procedures PRO ARTHRODESIS SACROILIAC JOINT PERCUTANEOUS Jacinto Apodaca MD [address] [place] [address] Referral ID Status Reason Start Date Expiration Date Visits Re quested Visits Authorized [id number] 10/26/2022 1 1 Encounter Details Date Type Department Care Team (Late st Contact Info) Description 11/17/2022 1:40 PM EDT - 11/17/2022 3:40 PM EDT Surgery Operating Room [address] [place] [address] Jacinto Apodaca MD [address] [place] [address] ARTHRODESIS,SACROILIAC JOINT FUSION (WRVU 12.13) Social History [...] post-operative follow up appointment with your surgeon/physician???s assistant unit forester scheduled. If you have any questions, please [...] when to stop taking it. Only take zudx-nir-dnnpsbr or prescription medicine for pain, discomfort or [...] condition, questions or concerns. SMOKING CESSATION INFORMATION: [place] QUITLINE: [place] QUITLINE: [email or web address] If you smoke, it is recommended that you stop now! MAKE SURE YOU: Understand these instructions. Will seek medical care if you are feeling poor, or get worse. Will call the surgeon???s office with any questions or concerns at : [phone] Nursing information only: Original document to medical [...] Apodaca MD - 11/17/2022 1:08 PM EDT [facility] [place] [address] Patient Name: Lynda Pedersen : [id number] MR#: [id number] Case Date: 11/17/2022 Case Scheduled Time: 1340 Surgeon: Surgeon(s) and Role: * Jacinto Apodaca MD - Primary * Denny Fuentes PA - Physician Starch Factory Laborer Preoperative diagnosis: BILATERAL SI JOINT DYSFUNCTION Postoperative diagnosis: BILATERAL SI JOINT DYSFUNCTION Actual procedure: Bilateral SI joint instrumented fusion using [place] screws, locally harvested bone, and bone morphogenic [...] left iliac crest. We then mounted the [employer] arc and obtained a CT scan. We imported the CTinto the [employer] station and planned our surgical trajectories. We [...] no unexpected breach of cortex. Next the [place] bone harvest device and final tap is utilized under live image guidance along the jet pilot hole trajectory. This final hole is palpated again with the image guided probe. The bone harvest device is cleaned of its bone graft which is then implanted into the central channel of the [place] screw along withbone morphogenic sponge. The ends of the [place] screw were capped with demineralized bone matrix [...] the duration of the operative session. The assistant unit forester adequately prepped the operative site and maintained [...] SI JOINT DYSFUNCTION Arthrodesis Sacroiliac Joint Percutaneous (40563) 11/17/2022 12:48 PM EDT BILATERAL SI JOINT [...] RN) documented in this encounter Care Teams Gift Packer Relationship Specialty Start Date End Date Samantha Escalante, DIGITAL ANALYTICS MANAGER [address] [place] [address] PCP - General Family Medicine 10/06/17 documented as of this encounter
--- OUTSIDE RECORDS SUMMARY | 2023-11-25 18:07 | XMS_ITS | Encounter Summary ---
Author Organization [facility] [place] [address] Care Team Providers Care Motor Overhauler Name Role Phone Samantha Escalante APRN Primary Care Provider Reason for Visit * Auth/Cert (Routine) Specialty Diagnoses / Procedures Referred By Wai del castillo Referred To Contact Diagnoses BILATERAL SI JOINT DYSFUNCTION Procedures PRO ARTHRODESIS SACROILIAC JOINT PERCUTANEOUS Jacinto Apodaca MD [address] [place] [address] Referral ID Status Reason Start Date Expiration Date Visits Re quested Visits Authorized [id number] 10/26/2022 1 1 Encounter Details Date Type Department Care Team (Latest Contact Info) Description 11/17/2022 11:10 AM EDT - 11/17/2022 4:12 PM EDT Hospital Encounter Post Acute Care Unit at [address] [place] [address] Jacinto Apodaca MD [address] [place] [address] Disorder of sacrum Discharge Disposition: Home Social [...] post-operative follow up appointment with your surgeon/physician???s home health assistant scheduled. If you have any questions, [...] when to stop taking it. Only take yhbc-kpy-cukawmo or prescription medicine for pain, discomfort or [...] condition, questions or concerns. SMOKING CESSATION INFORMATION: [place] QUITLINE: [place] QUITLINE: [email or web address] If you smoke, it is recommended that you stop now! MAKE SURE YOU: Understand these instructions. Will seek medical care if you are feeling poor, or get worse. Will call the surgeon???s office with any questions or concerns at : [phone] Nursing information only: Original document to medical [...] Apodaca MD - 11/17/2022 1:08 PM EDT [facility] Operative Note [facility] [address] [place] [address] Patient Name: Lynda Pedersen : [id number] MR#: [id number] Case Date: 11/17/2022 Case Scheduled Time: 1340 Surgeon: Surgeon(s) and Role: * Jacinto Apodaca MD - Primary * Denny Fuentes PA - Physician Slat Basket Maker Machine Preoperative diagnosis: BILATERAL SI JOINT DYSFUNCTION Postoperative diagnosis: BILATERAL SI JOINT DYSFUNCTION Actual procedure: Bilateral SI joint instrumented fusion using [place] screws, locally harvested bone, and bone morphogenic [...] CT scan. We imported the CTinto the [employer] station and planned our surgical trajectories. We [...] awl-tip tap is utilized to create a student union consultant hole under live image guidance. Next the hole is palpated with the image guided probe to ensure no unexpected breach of cortex. Next the [place] bone harvest device and final tap is utilized under live image guidance along the student union consultant hole trajectory. This final hole is palpated again with the image guided probe. The bone harvest device is cleaned of its bone graft which is then implanted into the central channel of the [place] screw along withbone morphogenic sponge. The ends of the [place] screw were capped with demineralized bone matrix [...] the duration of the operative session. The home health assistant adequately prepped the operative site and [...] SI JOINT DYSFUNCTION Arthrodesis Sacroiliac Joint Percutaneous ([id number]) 11/17/2022 12:48 PM EDT BILATERAL SI JOINT [...] RN) documented in this encounter Care Teams Motor Overhauler Relationship Specialty Start Date End Date Samantha Escalante APRN [address] [place] [address] PCP - General Family Medicine 10/06/17 documented as of this encounter
--- OUTSIDE RECORDS SUMMARY | 2023-11-25 18:07 | XMS_ITS | Encounter Summary ---
Author Organization Formerly [facility] [place] [address] Care Team Providers Care Activity Therapist Name Role Phone Samantha Escalante APRN Primary Care Provider Encounter Details Date Type Department Care Team (Late st Contact Info) Description 06/21/2022 12:27 PM EST - 06/21/2022 2:53 PM EST Surgery [place] [phone] Keli Eli MD [facility] [place] [address] LAPAROSCOPY, REMOVAL OF ADNEXA (WRVU 11.35) Social [...] PATIENT DISCHARGE INSTRUCTIONS Gynecologic Oncology phone number: [phone] (Nurse ext 4 then 4; appointment ext 1 then 4). After hours and on weekends please call hospital log stacker operator at [phone] and ask for Gynecologic Oncologist manager control. Call your doctor if you develop: --A fever over 101 degrees --Severe pain --Increasing pain, redness, or discharge at any of your incisions --Heavy vaginal bleeding-soaking through a pad an hour Future Appointments and Orders Future Appointments and Orders Future Appointments Provider Department Dept Phone 07/09/2022 9:40 AM Keli Eli MD Gynecology Oncology at [facility] Arrive at: Building Tech Area 3K [phone] Activity level: Let your body guide you. [...] Eli MD - 06/21/2022 1:21 PM EST [facility] Operative Note Patient Name: Lynda Pedersen : [id number] MR#: [id number] Case Date: 06/21/2022 Surgeon: Surgeon(s) and Role: [...] CYTOPATHOLOGY NON-GYNECOLOGICAL Pelvic Washings for Permanent OR28 [id number] 06/21/2022 1:34 PM Pertinent clinical data and significant therapy: ADNEXAL MASS Clinical impression: Pelvic Washings Procedure Type: Cystoscopy Specimen Type: Pelvic wash SPECIMEN TO PATHOLOGY Please perform frozen section OR28 [id number] ADNEXAL MASS Right Fallopian Tube and Right [...] endometrioma. ?? She was seen by her tobacco sieve operator Dr. Plascencia ([facility]) who ordered tumor markers: Ca 125 7.2, AFP 6.4, bHCG 6.2. ?? I saw Estephanie for a visit in the general wrapper opener clinic and subsequently referred her here for [...] TO PATHOLOGY Routine 06/21/2022 1:38 PM EST NON-WAREHOUSE COORDINATOR FINAL REPORT Routine 06/21/2022 1:34 PM EST CYTOPATHOLOGY NON-GYNECOLOGICAL Routine 06/21/2022 1:34 PM EST Lap, Rmv Adnexal Structure ([id number]) Yes 06/21/2022 12:49 PM EST ADNEXAL MASS POCT GLUCOSE Routine 06/21/2022 12:36 PM EST documented in this encounter Results * Surgical Pathology Report (06/21/2022 1:38 PM EST) Surgical Pathology Report [id number] ? Location: [facility]; The signing pathologist has (i) examined the relevant preparation(s) for the specimen(s) and (ii) rendered or confirmed the diagnosis(es). . ?Surgical Pathology DIAGNOSIS Right fallopian tube and ovary (salpingo-oophore ctomy): ?? 1. Ovarian serous cystadenoma. ?? 2. Benign fallopian tube. CR-0 Electronically signed by: ?Yadiel YA, Steve Gautam Verified: ??06/28/2022 15:10 ??Pathologist Performed at: ??-[facility] Dept. of Pathology, [place] [address] Dobby Loom Weaver: Liss Shepard MD, FCAP, ??CLIA Certificate: [id number] SPECIMEN(S) SUBMITTED A - Right fallopian tube [...] Fallopian Tube: 4.0 x 0.6 cm, fimbriated. Clothes Ironer sections in 7 cassettes as follows: ?A1: FS1: Focal thickened cyst lining ?A2: Right fallopian tube, fimbriae ?A3: Right fallopian tube, cross sections ?A4-A7: Right ovary cystic lesion ??njrs ?Frozen Section FROZEN SECTION DIAGNOSIS AFS1 - Right fallopian tube and right ovary: ? - Serous cystadenoma. 06/21/22 14:28/jlrob Electronically signed by: ?Jana YA, Bessie Vela Verified: ??06/21/2022 14:30 ??Pathologist Performed at: ??-[facility] Dept. of Pathology, [place] [address] Dobby Loom Weaver: Liss Shepard MD, AP, ??CLIA Certificate: [id number] This intraoperative consultation should be interpreted as a preliminary diagnosis pending review of the entire specimen and special studies, if any. A final Surgical Pathology report will follow this preliminary Frozen Section report(s). [facility] 06/21/2022 1:38 PM EST Keli Eli MD PATHOLOGY/CYTOLOGY ORDERABLES [facility] [place] [address] * Specimen to Pathology (06/21/2022 1:38 PM EST) AP Specimen 06/21/2022 1:38 PM EST 06/21/2022 1:38 PM EST Narrative [facility] - 06/21/2022 1:38 PM EST Specimen requisition ordered. ??Separate Pathology report to follow Keli Eli MD PATHOLOGY/CYTOLOGY ORDERABLES Performing Organization Address City/State/[facility] Co de Phone Number [facility] [place] [address] * Non-Print Production Manager Final Report (06/21/2022 1:34 PM EST) Non-Print Production Manager Final Report [id number] ? Location: [facility]; A The signing pathologist has (i) examined the relevant preparation(s) for the specimen(s) and (ii) rendered or confirmed the diagnosis(es). . ? Non-Print Production Manager Final DIAGNOSIS Negative for Malignancy Electronically signed by: ?Nohemi YA, Flako Logan Verified: ??06/24/2022 14:45 ??Cytopathologist Performed at: ??-[facility] Dept. of Pathology, [place] [address] Dobby Loom Weaver: Liss Shepard MD, AP, ??CLIA Certificate: [id number] DISCUSSION Pelvic wash: Clusters of mesothelial cells present. (Cell block was examined.) CLINICAL INFORMATION Specimen Source : Pelvic wash Pertinent Clinical Data and Significant Therapy: Adnexal mass Clinical Impression : Pelvic washings Pertinent Radiologic Findings ??: (not provided) Gross Description: Received ??fresh, approximately 35 mL total volume of ?? cloudy, colorless fluid, with light flecks. Total Preparation: Liquid-Based Prep 1; Cell Block 1. [facility] 06/21/2022 1:34 PM EST Narrative Authorizing Provider Result Kareem Eli MD PATHOLOGY/CYTOLOGY ORDERABLES Performing Organization Address [facility] Co de Phone Number [facility] [place] [address] * Cytopathology Non-Gynecological (06/21/2022 1:34 PM EST) AP Specimen 06/21/2022 1:34 PM EST 06/21/2022 1:34 PM EST Narrative [facility] - 06/21/2022 1:34 PM EST Specimen requisition ordered. ??Separate Pathology report to follow Authorizing Provider Result Kareem Eli MD PATHOLOGY/CYTOLOGY ORDERABLES Performing Organization Address [facility] Co de Phone Number [facility] [place] [address] * POCT Glucose (06/21/2022 12:36 PM EST) POC Glucose 68 65 - 199 mg/dL [facility] Comment: Supplemental ranges: <140 mg/dL before meals <180 mg/dL all other times of the day Blood 06/21/2022 12:3 6 PM EST 06/21/2022 12:36 PM EST Narrative Authorizing Provider Result Kareem Eli MD POINT OF CARE TEST ORDERABLES Performing Organization Address [facility] Phone Number [facility] [place] [address] documented in this encounter Visit Diagnoses Not [...] Routine documented in this encounter Care Teams Activity Therapist Relationship Specialty Start Date End Date Ava CHACE Singh [address] [place] [address] PCP - General Family Medicine 10/06/17 documented as of this encounter
--- OUTSIDE RECORDS SUMMARY | 2023-11-25 18:07 | XMS_ITS | Encounter Summary ---
Author Organization [facility] [place] [address] Care Team Providers Care Agricultural Economics Teacher Name Role Phone Samantha Escalante APRN Primary Care Provider Encounter Details Date Type Department Care Team (Late st Contact Info) Description 10/27/2023 6:05 PM EDT Ancillary Procedure [place] [address] Samantha Escalante APRN [address] [place], [place] [id number] Social History Tobacco Use Types Packs/Day Years [...] FILM LIBRARY OR DERABLES Performing Organization Address City/State/[facility] Co de Phone Number [place], [place] documented in this encounter Visit Diagnoses Not on filedocumented in this encounter Care Teams Agricultural Economics Teacher Relationship Specialty Start Date End Date Samantha Escalante APRN [address] [place] [address] PCP - General Family Medicine 10/06/17 documented as of this encounter
--- OUTSIDE RECORDS SUMMARY | 2023-11-25 18:07 | XMS_ITS | Encounter Summary ---
Author Organization [facility] [place] [address] Care Team Providers Care Able Bodied Seaman Name Role Phone Samantha Escalante APRN Primary Care Provider Encounter Details Date Type Department Care Team (Late st Contact Info) Description 06/23/2022 Telephone [place] [phone] Kristin Mattson RN Social History Tobacco Use [...] for Bactrim DS was sent to the [facility] pharmacy in [place]. Informed patient that she will be taking this twice daily for 7 days. Advised patient to take a picture of herincisions later today with the help of her granddaughter so that we can compare the redness in caseit increases. Patient verbalized understanding and will take a picture later today. She will bulk picker her antibiotics and start taking these. She [...] she would like this sent to [facility] in [place], [place]. documented in this encounter Plan of Treatment Not on file documented as of this encounter Visit Diagnoses Not on filedocumented in this encounter Care Teams Able Bodied Seaman Relationship Specialty Start Date End Date Samantha Escalante APRN [facility] [address] [place] [address] PCP - General Family Medicine 10/06/17 documented as of this encounter
--- OUTSIDE RECORDS SUMMARY | 2023-11-25 18:07 | XMS_ITS | Encounter Summary ---
Author Organization [facility] Address [facility] [address] Care Team Providers Care Ring Maker Name Role Phone Samantha Escalante APRN Primary Care Provider Reason for Visit * Auth/Cert (Routine) Specialty Diagnoses / Procedures Referred By Wai del castillo Referred To Contact Diagnoses BILATERAL SI JOINT DYSFUNCTION Procedures PRO ARTHRODESIS SACROILIAC JOINT PERCUTANEOUS Jacinto Apodaca MD [address] [facility] [place] [place] [address] Referral ID Status Reason Start Date Expiration Date Visits Re quested Visits Authorized [id number] 10/26/2022 1 1 Encounter Details Date Type Department Care Team (Late st Contact Info) Description 11/17/2022 11:55 AM EDT Ancillary Procedure Radiology Xray at [facility] [address] [place] [phone] Social History Tobacco Use Types Packs/Day Years Used Date Smoking Tobacco: Former Cigarettes 1 45 1 973 - 2017 Smokeless Tobacco: Never Alcohol Use Standard Drinks/Week Comments Never 0 (1 standard drink = 0.6 oz pur e alcohol) [facility] Inpatient Questions Answer Date Recorded Does Anyone [...] on filedocumented in this encounter Care Teams Ring Maker Relationship Specialty Start Date End Date Samantha Escalante APRN [address] [place] [address] PCP - General Family Medicine 10/06/17 documented as of this encounter
--- OUTSIDE RECORDS SUMMARY | 2023-11-25 18:07 | XMS_ITS | Encounter Summary ---
Author Organization [facility] [place] [address] Care Team Providers Care Face Man Name Role Phone Samantha Escalante APRN Primary Care Provider Reason for Visit * Reason Comments Post Op Encounter Details Date Type Department Care Team (Late st Contact Info) Description 07/09/2022 9:40 AM EST Office Visit [place] [phone] Keli Forde MD [facility] [place] [address] Complex ovarian cyst Social History Tobacco Use [...] 9:40 AM EST Division [place] [address] Postoperative Visit: Patient Active Problem List Diagnosis [...] Gautam Verified: ??06/28/2022 15:10 ??Pathologist Performed at: ??-[facility] Dept. of Pathology, [place] [address] Electrical Maintenance Man: Liss Shepard MD, AP, ??CLIA Certificate: [id number] Assessment and Plan: Lynda Pedersen is a [...] cyst documented in this encounter Care Teams Face Man Relationship Specialty Start Date End Date Samantha Escalante APRN [address] [place] [address] [address] [facility] [address] [place] [address] PCP - General Family Medicine 10/06/17 documented as of this encounter
--- OUTSIDE RECORDS SUMMARY | 2023-11-25 18:07 | XMS_ITS | Encounter Summary ---
Author Organization [facility] [place] [address] Care Team Providers Care Sheet Metal Duct Installer Apprentice Name Role Phone Samantha Escalante APRN [...] on filedocumented in this encounter Care Teams Sheet Metal Duct Installer Apprentice Relationship Specialty Start Date End Date Samantha Escalante APRN [address] [place] [address] PCP - General Family Medicine 10/06/17 documented as of this encounter
--- OUTSIDE RECORDS SUMMARY | 2023-11-25 18:07 | XMS_ITS | Encounter Summary ---
Author Organization [facility] [place] [address] Care Team Providers Care Construction Carpenters Helper Name Role Phone Samantha Escalante APRN Primary Care Provider Encounter Details Date Type Department Care Team (Latest Contact Info) Description 06/11/2022 12:00 PM EST Laboratory [place]ointment [place] [address] Pelvic mass in female Social History Tobacco [...] 12:40 PM EST) T&S only valid at [facility] Comment:This Type and Screen result is only valid at the [facility] Hospital Blood 06/11/2022 12:4 0 PM EST 06/11/2022 12:45 PM EST Narrative Resulting Agency Comment Spec In Lab Tonia Eli MD BLOOD BANK LAB ORD ERABLES [facility] [place] [address] * ABORH Recheck Status (06/11/2022 12:40 PM EST) ABORH Recheck Order Order Placed [facility] ABORH Type Recheck Complete [facility] Blood 06/11/2022 12:4 0 PM EST 06/11/2022 12:45 PM EST Narrative Resulting Agency Comment Spec In Lab Tonia lEi MD BLOOD BANK LAB ORD ERABLES [facility] [place] [address] * (ABNORMAL) Differential, Automated (06/11/2022 12:40 PM EST) Pathologist [facility] Neutrophils % 49.8 % [facility] Neutr Abs (ANC) 3.44 1.70 - 6.10 x10(3)/ L [facility] Lymphocytes % 37.2 % [facility] Lymphocytes Abs 2.6 0.9 - 3.2 x10(3)/[facility] LABORATORY Monocytes % 9.4 % [facility] Monocyte Abs 0.6 0.3 - 0.9 x10(3)/[facility] LABORATORY Eosinophils % 1.5 % [facility] Eosinophils Abs 0.1 0.0 - 0.4 x10(3)/[facility] LABORATORY Basophils % 1.2 % [facility] Basophils Abs 0.1 0.0 - 0.1 x10(3)/[facility] LABORATORY Immature Gran % 0.90 % [facility] Comment: Immature granulocytes(IG's)percentage and absolute count will include metamyelocytes, myelocytes, and promyelocytes. Blood smears from CBCs yielding IG's will be scanned manually for concordance. If this scan disagrees with the automated IG or if promyelocytes are noted, a manual differential will be performed. Ayanna Gran Abs 0.06(H) 0.00 - 0.04 x10(3)/ L [facility] Blood 06/11/2022 12:4 0 PM EST 06/11/2022 12:54 PM EST Narrative Resulting Agency Comment Spec In Lab Tonia Eli MD HEMATOLOGY ORDERAB LES [facility] [place] [address] * Hemogram (06/11/2022 12:40 PM EST) Pathologist [facility] WBC 6.9 4.0 - 9.5 x10(3)/[facility] LABORATORY RBC 4.84 4.00 - 5.21 x10(6)/[facility] LABORATORY Hemoglobin 14.0 11.7 - 15.5 g/dL [facility] Hematocrit 42.9 35.7 - 45.8 % [facility] MCV 88.6 82.6 - 94.4 [facility] LABORATORY MCH 28.9 27.1 - 32.0 pg [facility] MCHC 32.6 31.7 - 35.0 g/dL [facility] Platelets 283 145 - 357 x10(3)/[facility] RDWSD 44.7 37.0 - 46.0 [facility] RDWCV 13.7 11.5 - 14.1 % [facility] MPV 9.5 7.6 - 12.9 [facility]ORATORY nRBC % Auto 0.0 % [facility] nRBC Abs Auto 0.000 0.000 - 0.000 x10(3)/[facility] Blood 06/11/2022 12:4 0 PM EST 06/11/2022 12:54 PM EST Narrative Resulting Agency Comment Spec In Lab Tonia Eli MD HEMATOLOGY ORDERAB LES Performing Organization Address City/State/[facility] Co de Phone Number [facility] [place] [address] * Antibody screen (06/11/2022 12:40 PM EST) Ab Screen Interp Negative [facility] Expires at [id number] on: 06/24/2022 [facility] Comment: Corrected from 07/08/22 0:00:00 EST [Unknown] on 06/15/22 14:20:48 EST by Dusty Dc Blood 06/11/2022 12:4 0 PM EST 06/11/2022 12:45 PM EST Narrative Resulting Agency Comment Spec In Lab Tonia Eli MD BLOOD BANK LAB ORD ERABLES Performing Organization Address City/[facility]/ZIP Co de Phone Number [facility] [place] [address] * ABO/Rh Typing (06/11/2022 12:40 PM EST) ABORH Type O Pos [facility] Blood 06/11/2022 12:4 0 PM EST 06/11/2022 12:45 PM EST Narrative Resulting Agency Comment Spec In Lab Tonia Eli MD BLOOD BANK LAB ORD ERABLES Performing Organization Address [facility] Co de Phone Number [facility] [place] [address] * (ABNORMAL) Comprehensive metabolic panel (non-fasting) (06/11/2022 12:40 PM EST) [facility] Glucose Lvl 90 65 - 199 mg/dL [facility] Comment:Diabetes: >=200 mg/d L plus symptoms BUN 11 8 - 18 mg/dL [facility] Creatinine 0.75 0.70 - 1.20 mg/dL [facility] Sodium 137 135 - 145 mmol/L [facility] Potassium 4.7 3.5 - 5.0 mmol/L [facility] Comment: Please note: ??Patients with WBC >100,000 may have falsely elevated Potassium levels. ??For accurate Potassium quantification in these patients send serum separator tube (gold top) for subsequent determinations. ??Contact the Clinical Chemistry Laboratory if there are any questions. Chloride 100 98 - 107 mmol/L [facility] CO2 26 22 - 31 mmol/L [facility] Anion Gap 11 5 - 15 mmol/L [facility] Calcium 10.3 8.5 - 10.5 mg/dL [facility] Total Protein 7.8 6.1 - 8.0 g/dL [facility] Albumin 4.8 3.2 - 5.2 g/dL [facility] AST 38(H) 0 - 30 unit/L [facility] ALT 53(H) 0 - 30 unit/L [facility] Alk Phos 54 35 - 105 unit/L [facility] Total Bilirubin 0.3 0.2 - 1.3 mg/dL [facility] Estimated GFR 88 >=60 mL/min/1. 73 m?? [facility] Comment: This patient's estimated GFR [...] Lab Tonia Eli MD CHEMISTRY ORDERABL ES [facility] [place] [address] * CEA (06/11/2022 12:40 PM EST) CEA 0.7 <=3.8 ng/mL [facility] Comment: Reference range: ??(20-69 years): [...] MD CHEMISTRY ORDERABL ES Performing Organization Address City/[facility]/ZIP Co de Phone Number [facility] [place] [address] * Carbohydrate Antigen 19-9 (06/11/2022 12:40 PM EST) CA 19-9 7.4 <=35.0 u/ml [facility] Comment: This result was generated using a Jose E La immunoassay. ??Results obtained from other methods or manufacturers cannot be used interchangeably with this method. Blood 06/11/2022 12:4 0 PM EST 06/11/2022 12:54 PM EST Narrative Resulting Agency Comment Spec In Lab Tonia Eli MD CHEMISTRY ORDERABL ES Performing Organization Address [facility] Co de Phone Number [facility] [place] [address] documented in this encounter Visit Diagnoses Diagnosis Pelvic mass in female Abdominal or pelvic swelling, mass or lump, unspecified site documented in this encounter Care Teams Construction Carpenters Helper Relationship Specialty Start Date End Date Samantha Escalante APRN [address] [place] [address] PCP - General Family Medicine 10/06/17 documented as of this encounter
--- OUTSIDE RECORDS SUMMARY | 2023-11-25 18:07 | XMS_ITS | Encounter Summary ---
Author Organization [facility] [place] [address] Care Team Providers Care Tool And Die Maker Apprentice Name Role Phone Samantha Escalante APRN Primary Care Provider Encounter Details Date Type Department Care Team (Late st Contact Info) Description 06/21/2022 12:49 PM EST Anesthesia Event [place] [phone] Poly Singh MD [facility] [place] [address] Anesthesia Record Procedure Summary Procedure Name Responsible [...] questions and acknowledgement of understanding Alex Moon, STRIP MINE SUPERVISOR 1336 Break/Relief Out 1448 Extubation/LMA Out 1448 [...] 1231; metacarpal vein (top of hand), right; vxdg-olh-pvzzqe catheter system; Anatomical Landmarks; 22 gauge; Kelsie [...] dorsal arch vein (top of hand), left; erby-dog-tznnkr catheter system; 18 gauge; Moon STRIP MINE SUPERVISOR; 06/21/22; 1740 06/21/22 1300 by Poly Singh [...] Procedure Summary Date: 06/21/22 Room / Location: [address] MAIN OR Anesthesia Start: 1249 Anesthesia [...] shown include unvalidated device data. Patient Location: PACU/[facility] Level of Consciousness: Awake and Alert Pain [...] 06/21/2022 10:50 AM EST Pre-Anesthesia Evaluation for: Lynda Pedersen a 66 y.o. female. Procedure(s): LAPAROSCOPY, [...] 15.37) performed by Jacinto Apodaca MD at [facility] MAIN OR ??? TONSILLECTOMY AND ADENOIDECTOMY ??? UPPER GASTROINTESTINAL ENDOSCOPY Social History Tobacco Use ??? Smoking status: Former ??? Smokeless tobacco: Never Substance Use Topics ??? Alcohol use: Never Social History Substance and Sexual Activity Drug Use Never Allergies Allergen Reactions ??? Omeprazole Other reaction(s): Rash, itching all over ??? Ylvnjch-Yqf-Dtk Reductase Inhibitors Other reaction(s): MUSCLE ACHES ??? Codeine Phosphate CIS - Nausea/Vomiting ??? Penicillins CIS - Rash [facility] Penicillin Allergy Risk Assessment 06/11/2022: Low risk penicillin allergy. OK to receive full dose of cefazolin, cefuroxime, or any 3rd or 4th+ generation cephalosporin. PAT Clinic SUSTAINABILITY SPECIALIST to place Allergy referral for formal penicillin [...] risks discussed with patient. Plan discussed with STRIP MINE SUPERVISOR. Anesthesia Screening documented in this encounter Plan [...] mg documented in this encounter Care Teams Tool And Die Maker Apprentice Relationship Specialty Start Date End Date Samantha Escalante APRN [address] [place] [address] PCP - General Family Medicine 10/06/17 documented as of this encounter
--- OUTSIDE RECORDS SUMMARY | 2023-11-25 18:07 | XMS_ITS | Encounter Summary ---
Author Organization [facility] [place] [address] Care Team Providers Care Photo Checker Name Role Phone Samantha Escalante CHACE Primary Care Provider Encounter Details Date Type Department Care Team (Late st Contact Info) Description 09/23/2023 Orders Only Hematology [place] [address] Jacqui Small INVENTORY ASSOCIATE [facility] DR HEMATOLOGY[place] [address] Social History Tobacco Use Types Packs/Day Years Used Date Smoking Tobacco: Former Cigarettes 1 45 1 972017 Smokeless Tobacco: Never Alcohol Use Standard Drinks/Week Comments Never 0 (1 standard drink = 0.6 oz pur e alcohol) [facility] Inpatient Questions Answer Date Recorded Does Anyone [...] on filedocumented in this encounter Care Teams Photo Checker Relationship Specialty Start Date End Date Samantha Escalante APRN [address] [place] [address] PCP - General Family Medicine 10/06/17 documented as of this encounter
--- OUTSIDE RECORDS SUMMARY | 2023-11-25 18:07 | XMS_ITS | Encounter Summary ---
Author Organization [facility] [place] [address] Care Team Providers Care Optometry Doctor Name Role Phone Samantha Escalante APRN Primary Care Provider Encounter Details Date Type Department Care Team (Latest Contact Info) Description 06/21/2022 11:06 AM EST - 06/21/2022 5:40 PM EST Hospital Encounter [place] [id number] Keli Eli MD [facility] [place] [address] Complex ovarian cyst (Primary Dx) Discharge Disposition: [...] PATIENT DISCHARGE INSTRUCTIONS Gynecologic Oncology phone number: [phone] (Nurse ext 4 then 4; appointment ext 1 then 4). After hours and on weekends please call hospital terminal makeup operator at [phone] and ask for Gynecologic Oncologist cement mason helper. Call your doctor if you develop: --A fever over 101 degrees --Severe pain --Increasing pain, redness, or discharge at any of your incisions --Heavy vaginal bleeding-soaking through a pad an hour Future Appointments and Orders Future Appointments and Orders Future Appointments Provider Department Dept Phone 07/09/2022 9:40 AM Keli Eli MD Gynecology Oncology at [facility] [place] Arrive at: Manager Sales And Marketing Area 3K [phone] Activity level: Let your body guide you. [...] Eli MD - 06/21/2022 1:21 PM EST [facility] [place] Operative Note Patient Name: Lynda Pedersen : [id number] MR#: [id number] Case Date: 06/21/2022 Surgeon: Surgeon(s) and Role: [...] CYTOPATHOLOGY NON-GYNECOLOGICAL Pelvic Washings for Permanent OR28 [id number] 06/21/2022 1:34 PM Pertinent clinical data and significant therapy: ADNEXAL MASS Clinical impression: Pelvic Washings Procedure Type: Cystoscopy Specimen Type: Pelvic wash SPECIMEN TO PATHOLOGY Please perform frozen section OR28 [id number] ADNEXAL MASS Right Fallopian Tube and Right [...] endometrioma. ?? She was seen by her dynamicist Dr. Plascencia ([facility]) who ordered tumor markers: Ca 125 7.2, AFP 6.4, bHCG 6.2. ?? I saw Estephanie for a visit in the general department of mathematics chair clinic and subsequently referred her here for [...] TO PATHOLOGY Routine 06/21/2022 1:38 PM EST NON-PAINTER HELPER SIGN FINAL REPORT Routine 06/21/2022 1:34 PM EST CYTOPATHOLOGY NON-GYNECOLOGICAL Routine 06/21/2022 1:34 PM EST Lap, Rmv Adnexal Structure ([id number]) Yes 06/21/2022 12:49 PM EST ADNEXAL MASS POCT GLUCOSE Routine 06/21/2022 12:36 PM EST documented in this encounter Results * Surgical Pathology Report (06/21/2022 1:38 PM EST) Surgical Pathology Report [id number] ? Location: [facility]; [place]; The signing pathologist has (i) examined the relevant preparation(s) for the specimen(s) and (ii) rendered or confirmed the diagnosis(es). . ?Surgical Pathology DIAGNOSIS Right fallopian tube and ovary (salpingo-oophore ctomy): ?? 1. Ovarian serous cystadenoma. ?? 2. Benign fallopian tube. CR-0 Electronically signed by: ?Yadiel YA, Steve Gautam Verified: ??06/28/2022 15:10 ??Pathologist Performed at: ??-[facility] [place] Dept. of Pathology, [place] [id number] Farrowing Manager: Liss Shepard MD, FCAP, ??CLIA Certificate: [id number] SPECIMEN(S) SUBMITTED A - Right fallopian tube [...] Fallopian Tube: 4.0 x 0.6 cm, fimbriated. Manufacturing Plant Manager sections in 7 cassettes as follows: ?A1: FS1: Focal thickened cyst lining ?A2: Right fallopian tube, fimbriae ?A3: Right fallopian tube, cross sections ?A4-A7: Right ovary cystic lesion ??njrs ?Frozen Section FROZEN SECTION DIAGNOSIS AFS1 - Right fallopian tube and right ovary: ? - Serous cystadenoma. 06/21/22 14:28/jlb Electronically signed by: ?Jana YA, Bessie Vela Verified: ??06/21/2022 14:30 ??Pathologist Performed at: ??-[facility] [place] Dept. of Pathology, [place] [address] Farrowing Manager: Liss Shepard MD, AP, ??CLIA Certificate: [id number] This intraoperative consultation should be interpreted as a preliminary diagnosis pending review of the entire specimen and special studies, if any. A final Surgical Pathology report will follow this preliminary Frozen Section report(s). [facility] 06/21/2022 1:38 PM EST Keli Eli MD PATHOLOGY/CYTOLOGY ORDERABLES [facility] [place] [address] * Specimen to Pathology (06/21/2022 1:38 PM EST) AP Specimen 06/21/2022 1:38 PM EST 06/21/2022 1:38 PM EST Narrative [facility] - 06/21/2022 1:38 PM EST Specimen requisition ordered. ??Separate Pathology report to follow Keli Eli MD PATHOLOGY/CYTOLOGY ORDERABLES [facility] [place] [address] * Non-Dehydrator Tender Final Report (06/21/2022 1:34 PM EST) Non-Dehydrator Tender Final Report [id number] ? Location: [facility]; [place]; A The signing pathologist has (i) examined the relevant preparation(s) for the specimen(s) and (ii) rendered or confirmed the diagnosis(es). . ? Non-Dehydrator Tender Final DIAGNOSIS Negative for Malignancy Electronically signed by: ?Nohemi YA, Flako Logan Verified: ??06/24/2022 14:45 ??Cytopathologist Performed at: ??-[facility] [place] Dept. of Pathology, [place] [address] Farrowing Manager: Liss Shepard MD, AP, ??CLIA Certificate: [id number] DISCUSSION Pelvic wash: Clusters of mesothelial cells present. (Cell block was examined.) CLINICAL INFORMATION Specimen Source : Pelvic wash Pertinent Clinical Data and Significant Therapy: Adnexal mass Clinical Impression : Pelvic washings Pertinent Radiologic Findings ??: (not provided) Gross Description: Received ??fresh, approximately 35 mL total volume of ?? cloudy, colorless fluid, with light flecks. Total Preparation: Liquid-Based Prep 1; Cell Block 1. [facility] 06/21/2022 1:34 PM EST Narrative Authorizing Provider Result Kareem Eli MD PATHOLOGY/CYTOLOGY ORDERABLES Performing Organization Address [facility] Co de Phone Number [facility] [place] [address] * Cytopathology Non-Gynecological (06/21/2022 1:34 PM EST) AP Specimen 06/21/2022 1:34 PM EST 06/21/2022 1:34 PM EST Narrative [facility] - 06/21/2022 1:34 PM EST Specimen requisition ordered. ??Separate Pathology report to follow Authorizing Provider Result Kareem Eli MD PATHOLOGY/CYTOLOGY ORDERABLES Performing Organization Address [facility] Co de Phone Number [facility] [place] [address] * POCT Glucose (06/21/2022 12:36 PM EST) POC Glucose 68 65 - 199 mg/dL [facility] Comment: Supplemental ranges: <140 mg/dL before meals <180 mg/dL all other times of the day Blood 06/21/2022 12:3 6 PM EST 06/21/2022 12:36 PM EST Narrative Authorizing Provider Result Kareem Eli MD POINT OF CARE TEST ORDERABLES Performing Organization Address [facility] Co la Phone Number [facility] [place] [address] documented in this encounter Visit Diagnoses Diagnosis [...] Routine documented in this encounter Care Teams Optometry Doctor Relationship Specialty Start Date End Date Samantha Escalante APRN [address] [place] [address] PCP - General Family Medicine 10/06/17 documented as of this encounter
--- OUTSIDE RECORDS SUMMARY | 2023-11-25 18:07 | XMS_ITS | Encounter Summary ---
Author Organization [facility] [place] [address] Care Team Providers Care Bookie Name Role Phone Samantha Escalante APRN Primary Care Provider Reason for Visit * Auth/Cert (Routine) Specialty Diagnoses / Procedures Referred By Wai del castillo Referred To Contact Diagnoses BILATERAL SI JOINT DYSFUNCTION Procedures PRO ARTHRODESIS SACROILIAC JOINT PERCUTANEOUS Jacinto Apodaca MD [address] [facility] [place] [address] Referral ID Status Reason Start Date Expiration Date Visits Re quested Visits Authorized [id number] 10/26/2022 1 1 Encounter Details Date Type Department Care Team (Late st Contact Info) Description 11/17/2022 12:48 PM EDT Anesthesia Event Operating Room Sheela Holman [address] [place] [id number] Ming Torres CRNA [facility] [address] Anesthesia Record Procedure Summary Procedure Name Responsible [...] basilic vein (medial side of arm), left; wurf-cus-reefay catheter system; Anatomical Landmarks; 20 gauge; ES; [...] Procedure Summary Date: 11/17/22 Room / Location: [facility] OR MAIN OR Anesthesia Start: 1248 Anesthesia [...] Injection SI Joint 07/13/2022 Ming Maki MD [facility] RAD CT SCAN FINGER TRIGGER RELEASE L and R thumbs HYSTERECTOMY laparoscopic with LSO for endometriosis LIPOMA RESECTION LUMBAR DISC SURGERY PRO LAMINEC/FACETECT/FORAMIN, LUMBAR 1 SEG Right 08/05/2021 LAMINECTOMY, FACETECTOMY & FORAMINOTOMY,LUMBAR, ONE LEVEL (WRVU 15.37) performed by Jacinto Apodaca MD at [facility] MAIN OR PRO LAP, RMV ADNEXAL STRUCTURE N/A 06/21/2022 LAPAROSCOPY, REMOVAL OF ADNEXA (WRVU 11.35) performed by Tonia Eli MD at [facility] MAIN OR TONSILLECTOMY AND ADENOIDECTOMY UPPER GASTROINTESTINAL ENDOSCOPY Social History Tobacco Use Smoking status: Former Smokeless tobacco: Never Substance Use Topics Alcohol use: Never Social History Substance and Sexual Activity Drug Use Never Allergies Allergen Reactions Omeprazole Other reaction(s): Rash, itching all over Oectoiu-Dlx-Cnt Reductase Inhibitors Other reaction(s): MUSCLE ACHES Codeine Phosphate CIS - Nausea/Vomiting Penicillins CIS - Rash PAT Penicillin Allergy Risk Assessment 06/11/2022: Low risk penicillin allergy. OK to receive full dose of cefazolin, cefuroxime, or any 3rd or 4th+ generation cephalosporin. PAT Clinic TECHNICAL PRODUCER to place Allergy referral for formal penicillin [...] mg documented in this encounter Care Teams Bookie Relationship Specialty Start Date End Date Samantha Escalante APRN [address] [place] [address] [address] [facility] [address] [place] [address] PCP - General Family Medicine 10/06/17 documented as of this encounter
--- OUTSIDE RECORDS SUMMARY | 2023-11-25 18:07 | XMS_ITS | Encounter Summary ---
Author [facility] [address] Care Team Providers Care Board Certified Behavioral Analyst Name Role Phone Samantha Escalante APRN Primary Care Provider [phone] Encounter Details Date Type Department Care Team [...] on filedocumented in this encounter Care Teams Board Certified Behavioral Analyst Relationship Specialty Start Date End Date Samantha Escalante APRN [address] [place] [address] PCP - General Family Medicine 10/06/17 documented as of this encounter
--- OUTSIDE RECORDS SUMMARY | 2023-11-25 18:07 | XMS_ITS | Encounter Summary ---
Author Organization [facility] [place] [address] Care Team Providers Care Screw Machine Set Up Operator Tool Name Role Phone Samantha Escalante APRN Primary Care Provider [phone] Encounter Details Date Type Department Care Team (Late st Contact Info) Description 11/16/2022 9:45 AM EDT Telephone Pre-Admission Testing at [facility] [address] [place] [address] Social History Tobacco Use Types [...] on filedocumented in this encounter Care Teams Screw Machine Set Up Operator Tool Relationship Specialty Start Date End Date Samantha Escalante APRN [address] [place], [place] [address]Y [address] [place] [address] PCP - General Family Medicine 10/06/17 documented as of this encounter
--- OUTSIDE RECORDS SUMMARY | 2023-11-25 18:07 | XMS_ITS | Encounter Summary ---
Author Organization [facility] [place] [address] Care Team Providers Care Charging Car Operator Name Role Phone Samantha Escalante APRN [...] on filedocumented in this encounter Care Teams Charging Car Operator Relationship Specialty Start Date End Date Samantha Escalante APRN [address] [place] [address] PCP - General Family Medicine 10/06/17 documented as of this encounter
--- OUTSIDE RECORDS SUMMARY | 2023-11-25 18:07 | XMS_ITS | Clinical Summary ---
Author Organization [facility] [place] [address] Care Team Providers Care Technical Clerk Name Role Phone Samantha Escalante CHACE Primary Care Provider Allergies Active Allergy Reactions Criticality Noted Date [...] 3rd or 4th+ generation cephalosporin. PAT Clinic POTATO CHIP SACKING MACHINE OPERATOR to place Allergy referral for formal penicillin allergy evaluation. Patient open to a phone consult from the allergy clinic. Uhihnju-Hte-Gem Reductase Inhibitors High 06/05/2019 Other reaction(s): MUSCLE [...] PM EDT Ancillary Procedure [place] [address] Samantha Escalante APRN 09/23/2023 Orders Only Hematology [place] [address] Jacqui Small, CHACE from Last 3 Months Social History Tobacco Use Types Packs/Day Years Used Date Smoking Tobacco: Former Cigarettes 1 45 1 2017 Smokeless Tobacco: Never Tobacco Cessation:Counseling Given: Not Answered Alcohol Use Standard Drinks/Week Comments Never 0 (1 standard drink = 0.6 oz pur e alcohol) [facility] Inpatient Questions Answer Date Recorded Does [...] Glucose) Discontinued Medical Devices Implanted Type Area Rfid Systems Architect Device Identifier Shelf Expiration Date Model / Serial / Lot Kit Graft Bone Sponge 8cc Bmp Syringe Lrg Granules Infuse ([id number]) (Autoreq) - [id number] Implanted:Qty : 1 on 11/17/2022 by Jacinto Apodaca MD at [facility] IMPLANTS Midline: Sacrum [employer] 12/06/2022 [id number] / / [id number] Screw Spinal 32w99vm Sacroiliac Thread Sld Ti ([id number]) (Autoreq) - [id number] Implanted:Qty : 1 on 11/17/2022 by Jacinto Apodaca MD at [facility] IMPLANTS Right: Sacrum [employer] 08/17/2029 [id number] / / [id number] Screw Spinal 07t84hm Sacroiliac Thread Sld Ti ([id number]) (Autoreq) - [id number] Implanted:Qty : 1 on 11/17/2022 by Jacinto Apodaca MD at [facility] IMPLANTS Right: Sacrum [employer] 03/26/2030 [id number] / / [id number] Screw Spinal 86u33ai Sacroiliac Thread Sld Ti ([id number]) (Autoreq) - [id number] Implanted:Qty : 1 on 11/17/2022 by Jacinto Apodaca MD at [facility] IMPLANTS Left: Sacrum [employer] 02/16/2030 [id number] / / [id number] Screw Spinal 85u28mv Sacroiliac Thread Sld Ti ([id number]) (Autoreq) - [id number] Implanted:Qty : 1 on 11/17/2022 by Jacinto Apodaca MD at [facility] IMPLANTS Left: Sacrum [employer] 10/23/2030 [id number] / / [id number] Explanted Type Area Rfid Systems Architect Device Identifier Shelf Expiration Date Model / Serial / Lot Pin Fixation 150mm Ant Cerv Fusn Ss ([id number]) (Autoreq) - [id number] Explanted:Qty : 1 on 11/17/2022 by Jacinto Apodaca MD at [facility] IMPLANTS Midline: Sacrum [employer] 07/07/2024 [id number] / / [id number] Procedures Procedure Name Priority Date/Time Associated Diagnosis Comments FILM LIBRARY STORAGE ONLY CT PELVIS Routine 10/27/2023 6:00 PM EDT COMPREHENSIVE METABOLIC PANEL (NON-FASTING) Routine 06/11/2022 12:40 PM EST Pelvic mass in female from Last 3 Months or Most Recently Relevant to Health Maintenance Results * Film Library- Storage Only CT Pelvis (10/27/2023 6:00 PM EDT) Narrative [facility] - 10/27/2023 6:00 PM EDT This exam is auto-finalizing. It's purpose is for storage only. Samantha Adjovu POTATO CHIP SACKING MACHINE OPERATOR IMG FILM LIBRARY OR DERABLES [place], [place] * (ABNORMAL) Comprehensive metabolic panel (non-fasting) (06/11/2022 12:40 PM EST) Glucose Lvl 90 65 - 199 mg/dL [facility] Comment:Diabetes: >=200 mg/d L plus symptoms BUN 11 8 - 18 mg/dL [facility] Creatinine 0.75 0.70 - 1.20 mg/dL [facility] Sodium 137 135 - 145 mmol/L [facility] Potassium 4.7 3.5 - 5.0 mmol/L [facility] Comment: Please note: ??Patients with WBC >100,000 may have falsely elevated Potassium levels. ??For accurate Potassium quantification in these patients send serum separator tube (gold top) for subsequent determinations. ??Contact the Clinical Chemistry Laboratory if there are any questions. Chloride 100 98 - 107 mmol/L [facility] CO2 26 22 - 31 mmol/L [facility] Anion Gap 11 5 - 15 mmol/L [facility] Calcium 10.3 8.5 - 10.5 mg/dL [facility] Total Protein 7.8 6.1 - 8.0 g/dL [facility] Albumin 4.8 3.2 - 5.2 g/dL [facility] AST 38(H) 0 - 30 unit/L [facility] ALT 53(H) 0 - 30 unit/L [facility] Alk Phos 54 35 - 105 unit/L [facility] Total Bilirubin 0.3 0.2 - 1.3 mg/dL [facility] Estimated GFR 88 >=60 mL/min/1. 73 m?? [facility] Comment: This patient's estimated GFR [...] Tonia Eli MD CHEMISTRY ORDERABL ES [facility] [place] [address] from Last 3 Months or Most Recently Relevant to Health Maintenance Advance Directives Documents on File Type Date Recorded Patient Scrum Product Owner Expl anation Advance Directives and Livin g Will 06/23/2022 12:13 PM 07/16/21 Care Teams Technical Clerk Relationship Specialty Start Date End Date Samantha Escalante APRN [address] [place] [address] [address] [place] [address] PCP - General Family Medicine 10/06/17
--- OUTSIDE RECORDS SUMMARY | 2023-11-25 18:07 | XMS_ITS | Encounter Summary ---
Author Organization [facility] [place] [address] Care Team Providers Care Squirrel Worker Name Role Phone Samantha Escalante APRN Primary Care Provider Encounter Details Date Type Department Care Team (Late st Contact Info) Description 04/29/2023 Ancillary Procedure [place] [address] Samantha Escalante APRN [address] [place], [place] [address] Social History Tobacco Use Types Packs/Day Years Used Date Smoking Tobacco: Former Cigarettes 1 45 1 973 - 2018 Smokeless Tobacco: Never Alcohol Use Standard Drinks/Week Comments Never 0 (1 standard drink = 0.6 oz pur e alcohol) [facility] Inpatient Questions Answer Date Recorded Does Anyone [...] MR Spine (04/29/2023 12:00 AM EST) Narrative [facility] - 05/04/2023 9:04 AM EST This exam is auto-finalizing. It's purpose is for storage only. Samantha Escalante APRN IMG FILM LIBRARY OR DERABLES Performing Organization Address City/State/[facility] Co de Phone Number [place], [place] documented in this encounter Visit Diagnoses Not on filedocumented in this encounter Care Teams Squirrel Worker Relationship Specialty Start Date End Date Samantha Escalante APRN [address] [place] [address] PCP - General Family Medicine 10/06/17 documented as of this encounter
--- OUTSIDE RECORDS SUMMARY | 2023-11-25 18:07 | XMS_ITS | Encounter Summary ---
[place] [address] Care Team Providers Care Support Dba Name Role Phone Samantha Escalante APRN Primary Care Provider Encounter Details Date Type Department Care Team (Late st Contact Info) Description 06/23/2022 Orders Only [place] [address] Kristin Mattson RN Incisional infection Social History [...] infection documented in this encounter Care Teams Support Dba Relationship Specialty Start Date End Date Samantha Escalante APRN [address] [place], [place] [address] PCP - General Family Medicine 10/06/17 documented as of this encounter
--- OUTSIDE RECORDS SUMMARY | 2023-11-25 18:07 | XMS_ITS | Encounter Summary ---
Author Organization [facility] Address [place] [address] Care Team Providers Care Yard Associate Name Role Phone Samantha Escalante APRN Primary Care Provider Encounter Details Date Type Department Care Team (Late st Contact Info) Description 06/21/2022 Interpretation Only Radiology [address] [place] [address] Unknown None Social History Tobacco Use Types [...] on filedocumented in this encounter Care Teams Yard Associate Relationship Specialty Start Date End Date Adjovu, Samantha, DRAFTING LAYOUT MAN [address] [place] [address] PCP - General Family Medicine 10/06/17 documented as of this encounter
--- OUTSIDE RECORDS SUMMARY | 2023-11-25 18:07 | XMS_ITS | Encounter Summary ---
Author [facility] [address] Care Team Providers Care Telegraph Printer Mechanic Name Role Phone Samantha Escalante APRN Primary Care Provider Encounter Details Date Type Department Care Team (Late st Contact Info) Description 11/10/2022 External Results Pre-Admission Testing at [facility] [address] [place] [phone] Social History Tobacco Use Types Packs/Day Years [...] on filedocumented in this encounter Care Teams Telegraph Printer Mechanic Relationship Specialty Start Date End Date Samanhta Escalante APRN [address] [place] [address] PCP - General Family Medicine 10/06/17 documented as of this encounter
--- OUTSIDE RECORDS SUMMARY | 2023-11-25 18:08 | XMS_ITS | Encounter Summary ---
Author Organization [facility] [place] [address] Care Team Providers Care Automobile Club Information Clerk Name Role Phone Samantha Escalante APRN Primary Care Provider Encounter Details Date Type Department Care Team (Late st Contact Info) Description 06/26/2021 Telephone Dermatology at [address] [place] [address] Marcela Arevalo RN Social History [...] on filedocumented in this encounter Care Teams Automobile Club Information Clerk Relationship Specialty Start Date End Date Ava SamanthaCHACE barrios [address] [place] [address] [address] [facility] [address] [place] [address] PCP - General Family Medicine 10/06/17 documented as of this encounter
--- OUTSIDE RECORDS SUMMARY | 2023-11-25 18:08 | XMS_ITS | Encounter Summary ---
Author Organization [facility] Address [address] [place] [address] Care Team Providers Care Student Services Vice President Name Role Phone Rajat Roca MD Primary Care Provider [phone] Samantha Escalante NP Primary Care Provider [phone] Encounter Details Date Type Department Care Team (Late st Contact Info) Description 03/28/2019 Lab Requisition [facility] Pathology & Laboratory Medicine - [facility] [address] [place] [address] Geovany Ibrahim MD [address] [place] [address] [address] [place], [place] [address] Encounter for other general examination Social History Tobacco Use Types Packs/Day Years Used Date Smoking Tobacco: Never Assessed Sex and Gender Information Value Date Recorded Sex Assigned at Not on file Gender Identity Not on file Sexual Orientation Not on file documented as of this encounter Plan of Treatment Scheduled Orders Name Type Priority Associated Diagnoses Orde r Schedule SURGICAL PATHOLOGY Pathology Today Encounter for other general examination Ordered: 03/28/2019 documented as of this encounter Visit Diagnoses Diagnosis Encounter for other general examination documented in this encounter Care Teams Student Services Vice President Relationship Specialty Start Date End Date Rajat Roca MD [address] [place], [place] [id number] PCP - General 04/20/16 01/06/22 Samantha Escalante NP [address] [place] [address] PCP - General 01/07/22 documented as of this encounter
--- OUTSIDE RECORDS SUMMARY | 2023-11-25 18:08 | XMS_ITS | Encounter Summary ---
Author [place] [address] Care Team Providers Care Milker Machine Name Role Phone Samantha Escalante APRN Primary Care Provider Reason for Referral * Diagnostic Test (Routine) - Closed Specialty Diagnoses / Procedures Referred By Wai del castillo Referred To Contact Radiology Diagnoses Coronary artery disease, angina presence unspecified, unspecified vessel or lesion type, unspecified whether [place] or transplanted heart Procedures NM Pharmacologic Stress CT Component Samantha Escalante APRN [address] [place] [address] [place] [address] Referral ID Status Reason Start Date Expiration Date V isits Requested Visits Authorized [id number] Closed Specialty Service Requested 12/27/2019 06/23/2020 1 1 Reason for Visit * Diagnostic Test (Routine) - Closed Specialty Diagnoses / Procedures Referred By Wai del castillo Referred To Contact Radiology Diagnoses Coronary artery disease, angina presence unspecified, unspecified vessel or lesion type, unspecified whether [place] or transplanted heart Procedures NM Pharmacologic Stress CT Component Samantha Escalante APRN [address] [place] [address] [place] [address] Referral ID Status Reason Start Date Expiration Date V isits Requested Visits Authorized [id number] Closed Specialty Service Requested 12/27/2019 06/23/2020 1 1 Encounter Details Date Type Department Care Team (Late st Contact Info) Description 04/01/2020 7:39 AM EST - 04/01/2020 11:59 PM EST Hospital En[place] [address] Samantha Escalante, EMU FARMER [address] [place], [place] [address] Coronary artery disease, angina presence unspecified, unspecified vessel or lesion type, unspecified whether [place] or transplanted heart Discharge Disposition: Home Social [...] gemfibrozil (LOPID) 600 mg tablet 10/28/2009 10/13/2020 [place]-3 Fatty Acids-Fish Oil (FISH OIL OMEGA 3-6-9) [...] unspecified vessel or lesion type, unspecified whether [place] or transplanted heart documented in this encounter [...] ? Electronically signed by: Silvestre Salmeron MD, [facility] ([phone]), at 04/01/2020 11:47 AM Procedure Note Silvestre [...] below. Electronically signed by: Silvestre Salmeron MD, [facility]([phone]), at 04/01/2020 11:47 AM Samantha Escalante EMU FARMER IMG NM ORDERABLES documented in this encounter Visit Diagnoses Diagnosis Coronary artery disease, angina presence unspecified, unspecified vessel or lesion type, unspecified whether [place] or transplanted heart documented in this encounter Care Teams Milker Machine Relationship Specialty Start Date End Date Samantha Escalante APRN [address] [place] [address] PCP - General Family Medicine 10/06/17 documented as of this encounter
--- OUTSIDE RECORDS SUMMARY | 2023-11-25 18:08 | XMS_ITS | Encounter Summary ---
Author Organization [facility] [place] [address] Care Team Providers Care Industrial Sociologist Name Role Phone Samantha Escalante APRN Primary Care Provider Reason for Visit * Reason Comments Follow-up Encounter Details Date Type Department Care Team (Late st Contact Info) Description 10/02/2021 4:45 PM EDT Office Visit Dermatology at [address] [address] Willard Parra MD [address] [place] [address] DERMATOLOGY [place], [place] [id number] Encounter for post surgical wound check Social [...] check documented in this encounter Care Teams Industrial Sociologist Relationship Specialty Start Date End Date Samantha Escalante APRN [address] [place] [address] PCP - General Family Medicine 10/06/17 documented as of this encounter
--- OUTSIDE RECORDS SUMMARY | 2023-11-25 18:08 | XMS_ITS | Encounter Summary ---
Author Organization [facility] [place] [address] Care Team Providers Care Monumental Stonemason Name Role Phone Samantha Escalante APRN Primary Care Provider [phone] Reason for Visit * Reason Comments Skin Lesion Encounter Details Date Type Department Care Team (Late st Contact Info) Description 09/15/2020 11:00 AM EDT Office Visit Dermatology at [address] [address] Frieda Bermudez MD [facility] [address] [place] [address] Seborrheic keratosis, inflamed; Inflamed skin tag Social [...] by: Frieda Bermudez MD Resident in Dermatology [facility] Cosigned by: Piero Marc MD Department of Dermatology [facility] * Piero Marc III, MD - 09/15/2020 [...] as documented in Dr. Bermudez's note. PIERO MARC III, MD Staff Physician documented in this encounter Plan of Treatment Not on file documented as of this encounter Visit Diagnoses Diagnosis Seborrheic keratosis, inflamed Inflamed seborrheic keratosis Inflamed skin tag Unspecified hypertrophic and atrophic condition of skin documented in this encounter Care Teams Monumental Stonemason Relationship Specialty Start Date End Date Samantha Escalante APRN [address] [place] [address] PCP - General Family Medicine 10/06/17 documented as of this encounter
--- OUTSIDE RECORDS SUMMARY | 2023-11-25 18:08 | XMS_ITS | Encounter Summary ---
Author Organization [facility] [place] [address] Care Team Providers Care Lacquer Machine Feeder Name Role Phone Samantha Escalante APRN Primary [...] on filedocumented in this encounter Care Teams Lacquer Machine Feeder Relationship Specialty Start Date End Date Samantha Escalante APRN [address] [place], [place] [address] PCP - General Family Medicine 10/06/17 documented as of this encounter
--- OUTSIDE RECORDS SUMMARY | 2023-11-25 18:08 | XMS_ITS | Encounter Summary ---
Author Organization [facility] Address [facility] [place] [address] Care Team Providers Care Visual Lead Name Role Phone Samantha Escalante APRN Primary [...] Expiration Date Visits Re quested Visits Authorized [id number] 1 1 Encounter Details Date Type Department Care Team (Late st Contact Info) Description 08/05/2021 2:41 PM EDT Anesthesia Event [place] [address] Ming Bull, SHEARING MACHINE TENDER [place] [address] Tim Wu, SHEARING MACHINE TEND[place] [address] Anesthesia Record Procedure Summary Procedure Name Responsible Anesthesiologist Anesthesia Start Time Anesthesia Stop Time LAMINECTOMY, FACETECTOMY & FORAMINOTOMY,LUMBAR, ONE LEVEL (VU 15.37) (Right: Spine Lumbar) Ming Bull, SHEARING MACHINE TENDER 08/05/21 1441 08/05/21 1614 Events Date Time [...] IV Line - Single Lumen 08/05/21; 1312; zsqu-nzl-sxveif catheter system; Anatomical Landmarks; 20 gauge; NUBIA [...] Time: 1600 08/05/21 1448 by Ming Bull, SHEARING MACHINE TENDER 08/05/21 1600 by Ming Bull, SHEARING MACHINE TENDER Incision 08/05/21; 1503; lowe r, Right, posterior; [...] Procedure Summary Date: 08/05/21 Room / Location: ON LICENSE OF [facility] OR MAIN OR Anesthesia Start: 1441 Anesthesia [...] Other reaction(s): Rash, itching all over ??? Fmyiqxh-Evi-Qrw Reductase Inhibitors Other reaction(s): MUSCLE ACHES ??? [...] mg documented in this encounter Care Teams Visual Lead Relationship Specialty Start Date End Date Samantha Escalante APRN [address] [place] [address] PCP - General Family Medicine 10/06/17 documented as of this encounter
--- OUTSIDE RECORDS SUMMARY | 2023-11-25 18:08 | XMS_ITS | Encounter Summary ---
Author Organization [facility] [place] [address] Care Team Providers Care Terrazzo Laborer Name Role Phone Samantha Escalante APRN Primary [...] on filedocumented in this encounter Care Teams Terrazzo Laborer Relationship Specialty Start Date End Date Samantha Escalante APRN [address] [place], [place] [address] PCP - General Family Medicine 10/06/17 documented as of this encounter
--- OUTSIDE RECORDS SUMMARY | 2023-11-25 18:08 | XMS_ITS | Encounter Summary ---
Author Organization [facility] [place] [address] Care Team Providers Care Clinical Trial Data Manager Name Role Phone Samantha Escalante APRN Primary Care Provider Reason for Visit * Reason Comments Skin Check * Consultation (Routine) - Specialty Diagnoses / Procedures Referred By Wai del castillo Referred To Contact Dermatology Diagnoses Other seborrheic keratosis Seborrheic keratosis Procedures Consult Samantha Escalante APRN [address] [place] [address] Willard Parra MD [address] [place] [address] [place] [address] Referral ID Status Reason Start Date Expiration Date V isits Requested Visits Authorized [id number] 09/28/2017 09/28/2018 1 1 Encounter Details Date Type Department Care Team (Late st Contact Info) Description 04/14/2018 11:00 AM EST Office Visit Dermatology at [address] [place] [phone] Willard Parra MD [address] [place] [address] DERMATOLOGY [place], [place] [phone] Seborrheic keratosis Social History Tobacco Use Types [...] keratosis documented in this encounter Care Teams Clinical Trial Data Manager Relationship Specialty Start Date End Date Samantha Escalante APRN [address] [place] [address] PCP - General Family Medicine 10/06/17 documented as of this encounter
--- OUTSIDE RECORDS SUMMARY | 2023-11-25 18:08 | XMS_ITS | Encounter Summary ---
Author Organization [facility] [place] [address] Care Team Providers Care Semi Driver Name Role Phone Samantha Escalante APRN Primary Care Provider Encounter Details Date Type Department Care Team (Late st Contact Info) Description 01/26/2022 Ancillary Procedure Radiology at [facility] [address] [phone] Jacinto Apodaca MD [address] [facility] [place] [address] Social History Tobacco Use Types Packs/Day Years [...] Apodaca MD IM FILM LIBRARY ORD ERABLES [place], [place] documented in this encounter Visit Diagnoses Not on filedocumented in this encounter Care Teams Semi Driver Relationship Specialty Start Date End Date Samantha EscalanteCHACE [address] [place] [address] PCP - General Family Medicine 10/06/17 documented as of this encounter
--- OUTSIDE RECORDS SUMMARY | 2023-11-25 18:08 | XMS_ITS | Encounter Summary ---
Author Organization [facility] [place] [address] Care Team Providers Care Gin Operator Name Role Phone Samantha Escalante APRN Primary Care Provider Encounter Details Date Type Department Care Team (Late st Contact Info) Description 04/15/2022 Ancillary Procedure [place] [address] Samantha Escalante APRN [address] [place], [place] [address] Social History Tobacco Use Types Packs/Day Years [...] Ultrasound Study (04/15/2022 12:00 AM EST) Narrative [facility] - 04/20/2022 9:12 AM EST This exam is auto-finalizing. It's purpose is for storage only. Samantha Escalante APRN IMG FILM LIBRARY OR DERABLES [place], [place] documented in this encounter Visit Diagnoses Not on filedocumented in this encounter Care Teams Gin Operator Relationship Specialty Start Date End Date Samantha Escalante APRN [address] [place] [address] PCP - General Family Medicine 10/06/17 documented as of this encounter
--- OUTSIDE RECORDS SUMMARY | 2023-11-25 18:08 | XMS_ITS | Encounter Summary ---
Author Organization [facility] [place] [address] Care Team Providers Care Field Education Coordinator Name Role Phone Samantha Escalante APRN Primary Care Provider [phone] Reason for Visit * Reason Comments Follow-up Skin Lesion Encounter Details Date Type Department Care Team (Late st Contact Info) Description 10/13/2020 2:20 PM EDT Office Visit Dermatology at [address] [address] Petros Durand MD [facility] [address] [place] [address] Seborrheic keratosis, inflamed Social History Tobacco Use [...] very itchy and bothersome. Last visit at [facility] Derm: 09/15/2020 Last visit with this [...] ??? N/A RTC: PRN []Note routed to pathology secretary []Recall has been placed in scheduling system []Appointment scheduled at checkout Scribe attestation: Opal Bernabe [facility] who has performed the documentation for this encounter in the presence of and acting as a scribe for Petros Durand MD. I performed the above scribed service and agree with the accuracy of the documentation in this encounter. Reviewed and signed by: Petros Durand MD Dermatology [facility] Patient seen and evaluated with staff inspector brake lining: Cheyenne Bradford MD Dermatology [facility] * Cheyenne Bradford MD - 10/13/2020 2:20 [...] keratosis documented in this encounter Care Teams Field Education Coordinator Relationship Specialty Start Date End Date Samantha Escalante APRN [address] [place] [address] PCP - General Family Medicine 10/06/17 documented as of this encounter
--- OUTSIDE RECORDS SUMMARY | 2023-11-25 18:08 | XMS_ITS | Encounter Summary ---
[place] [address] Care Team Providers Care Supervisor Covering And Lining Name Role Phone Samantha Escalante APRN Primary Care Provider Reason for Referral * Diagnostic Test (Routine) - Closed Specialty Diagnoses / Procedures Referred By Wai t Referred To Contact Radiology Diagnoses Coronary artery disease, angina presence unspecified, unspecified vessel or lesion type, unspecified whether [place] or transplanted heart Procedures NM Pharmacologic Stress and Rest Myocardial Perfusion Samantha Escalante APRN [address] [place] [address] [place] [address] Referral ID Status Reason Start Date Expiration Date V isits Requested Visits Authorized [id number] Closed Specialty Service Requested 12/27/2019 06/23/2020 1 1 Reason for Visit * Diagnostic Test (Routine) - Closed Specialty Diagnoses / Procedures Referred By Wai t Referred To Contact Radiology Diagnoses Coronary artery disease, angina presence unspecified, unspecified vessel or lesion type, unspecified whether [place] or transplanted heart Procedures NM Pharmacologic Stress and Rest Myocardial Perfusion Samantha Escalante APRN [address] [place] [address] [place] [address] Referral ID Status Reason Start Date Expiration Date V isits Requested Visits Authorized [id number] Closed Specialty Service Requested 12/27/2019 06/23/2020 1 1 Encounter Details Date Type Department Care Team (Late st Contact Info) Description 04/01/2020 7:37 AM EST Hospital Encounter [place] [address] Ava, Samantha, COMPOSING ROOM SUPERVISOR [address] [place], [place] [address] Coronary artery disease, angina presence unspecified, unspecified vessel or lesion type, unspecified whether [place] or transplanted heart Discharge Disposition: Home Social [...] gemfibrozil (LOPID) 600 mg tablet 10/28/2009 10/13/2020 [place]-3 Fatty Acids-Fish Oil (FISH OIL OMEGA 3-6-9) [...] unspecified vessel or lesion type, unspecified whether [place] or transplanted heart documented in this encounter [...] ? Electronically signed by: Erick Wallace MD, [facility] ([phone]), at 04/01/2020 11:32 AM Narrative 04/01/2020 11:32 [...] below. Electronically signed by: Erick Wallace MD, [facility]([phone]), at 04/01/2020 11:32 AM Samantha Adjovu COMPOSING ROOM SUPERVISOR IMG NM ORDERABLES documented in this encounter Visit Diagnoses Diagnosis Coronary artery disease, angina presence unspecified, unspecified vessel or lesion type, unspecified whether [place] or transplanted heart documented in this encounter [...] mCi documented in this encounter Care Teams Supervisor Covering And Lining Relationship Specialty Start Date End Date Samantha Escalante, COMPOSING ROOM SUPERVISOR [address] [place] [address] [address] [place] [address] PCP - General Family Medicine 10/06/17 documented as of this encounter
--- OUTSIDE RECORDS SUMMARY | 2023-11-25 18:08 | XMS_ITS | Encounter Summary ---
Author Organization [facility] [place] [address] Care Team Providers Care Structures Engineer Name Role Phone Samantha Escalante APRN Primary Care Provider [phone] Reason for Visit * Reason Comments Follow-up Urgent visit * Consultation (Urgent) - Closed Specialty Diagnoses / Procedures Referred By Contyusuf t Referred To Contact Gynecology Oncology Diagnoses Adnexal mass Silvana Moon MD [facility] OBSTETRICS & [place] [address] Tonia Eli MD [facility] [place] [address] Referral ID Status Reason Start Date Expiration Date V isits Requested Visits Authorized [id number] Closed Consult, Test & Treat 05/24/2022 05/24/2023 1 1 Encounter Details Date Type Department Care Team (Late st Contact Info) Description 06/11/2022 10:00 AM EST Office Visit [place] [address] Tonia Eli MD [facility] [address] Pelvic mass in female (Primary Dx); Carcinoma [...] 10:00 AM EST Division [place] [address] Gynecologic Oncology Clinic New Patient Visit Reason for visit: Complex adnexal cyst, referred by Silvana Moon MD [facility] DR OBSTETRICS & [place] [address] Problem List Patient Active Problem List Diagnosis [...] an endometrioma. She was seen by her brush fabrication supervisor Dr. Plascencia ([facility]) who ordered tumor markers: Ca 125 7.2, AFP 6.4, bHCG 6.2. I saw Estephanie for a visit in the general race relations professor clinic and subsequently referred her here for [...] Social history: She is . Lives in [place], [place]. 83yo woman who is renting a [...] Other reaction(s): Rash, itching all over ??? Jzmyvyk-Dai-Bxi Reductase Inhibitors Other reaction(s): MUSCLE ACHES ??? Codeine Phosphate CIS - Nausea/Vomiting ??? Penicillins CIS - Rash [facility] Penicillin Allergy Risk Assessment 06/11/2022: Low risk penicillin allergy. OK to receive full dose of cefazolin, cefuroxime, or any 3rd or 4th+ generation cephalosporin. PAT Clinic FIRE CAPTAIN MARINE to place Allergy referral for formal penicillin [...] Oncology clinic today. I was present as automotive accessory installer for the sensitive parts of her examination. DARIANA Leiva documented in this encounter Plan of Treatment Not on file documented as of this encounter Results * Carbohydrate Antigen 19-9 (06/11/2022 12:40 PM EST) CA 19-9 7.4 <=35.0 u/ml [facility] Comment: This result was generated using a Jose E La immunoassay. ??Results obtained from other methods or manufacturers cannot be used interchangeably with this method. Blood 06/11/2022 12:4 0 PM EST 06/11/2022 12:54 PM EST Narrative Resulting Agency Comment Spec In Lab Tonia Eli MD CHEMISTRY ORDERABL ES [facility] [place] [address] * CEA (06/11/2022 12:40 PM EST) CEA 0.7 <=3.8 ng/mL [facility] Comment: Reference range: ??(20-69 years): [...] Lab Tonia Eli MD CHEMISTRY ORDERABL ES [facility] [place] [address] * (ABNORMAL) Comprehensive metabolic panel (non-fasting) (06/11/2022 12:40 PM EST) Glucose Lvl 90 65 - 199 mg/dL [facility] Comment:Diabetes: >=200 mg/d L plus symptoms BUN 11 8 - 18 mg/dL [facility] Creatinine 0.75 0.70 - 1.20 mg/dL [facility] Sodium 137 135 - 145 mmol/L [facility] Potassium 4.7 3.5 - 5.0 mmol/L [facility] Comment: Please note: ??Patients with WBC >100,000 may have falsely elevated Potassium levels. ??For accurate Potassium quantification in these patients send serum separator tube (gold top) for subsequent determinations. ??Contact the Clinical Chemistry Laboratory if there are any questions. Chloride 100 98 - 107 mmol/L [facility] CO2 26 22 - 31 mmol/L [facility] Anion Gap 11 5 - 15 mmol/L [facility] Calcium 10.3 8.5 - 10.5 mg/dL [facility] Total Protein 7.8 6.1 - 8.0 g/dL [facility] Albumin 4.8 3.2 - 5.2 g/dL [facility] AST 38(H) 0 - 30 unit/L [facility] ALT 53(H) 0 - 30 unit/L [facility] Alk Phos 54 35 - 105 unit/L [facility] Total Bilirubin 0.3 0.2 - 1.3 mg/dL [facility] Estimated GFR 88 >=60 mL/min/1. 73 m?? 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
--- OUTSIDE RECORDS SUMMARY | 2023-11-25 18:08 | XMS_ITS | Encounter Summary ---
[place] [address] Care Team Providers Care Law Office Manager Name Role Phone Samantha Escalante APRN Primary Care Provider Reason for Visit * Diagnostic Test (Routine) - Closed Specialty Diagnoses / Procedures Referred By Wai t Referred To Contact Radiology Diagnoses Coronary artery disease, angina presence unspecified, unspecified vessel or lesion type, unspecified whether absentee-shawnee or transplanted heart Procedures NM Pharmacologic Stress and Rest Myocardial Perfusion Samantha Escalante APRN [address] [place] [address] [place] [address] Referral ID Status Reason Start Date Expiration Date V isits Requested Visits Authorized [id number] Closed Specialty Service Requested 12/27/2019 06/23/2020 1 1 Encounter Details Date Type Department Care Team (Late st Contact Info) Description 04/01/2020 7:38 AM EST Hospital Encounter [place] [address] Samantha Escalante APRN [address] [place], [place] [id number] Discharge Disposition: Home Social History Tobacco Use [...] gemfibrozil (LOPID) 600 mg tablet 10/28/2009 10/13/2020 [place]-3 Fatty Acids-Fish Oil (FISH OIL [place]ME[place] 3-6-9) [...] unspecified vessel or lesion type, unspecified whether absentee-shawnee or transplanted heart documented in this encounter [...] ? Electronically signed by: Erick Wallace MD, [facility] ([phone]), at 04/01/2020 11:32 AM Narrative 04/01/2020 11:32 [...] below. Electronically signed by: Erick Wallace MD, [facility]([phone]), at 04/01/2020 11:32 AM Samantha Escalante APRN IMG NM ORDERABLES documented in this encounter Visit Diagnoses Not on filedocumented in this encounter Care Teams Law Office Manager Relationship Specialty Start Date End Date Samantha Escalante APRN [address] [place] [address] PCP - General Family Medicine 10/06/17 documented as of this encounter
--- OUTSIDE RECORDS SUMMARY | 2023-11-25 18:08 | XMS_ITS | Encounter Summary ---
Author Organization [facility] [place] [address] Care Team Providers Care Wind Turbine Installer Name Role Phone Samantha Escalante APRN Primary Care Provider Reason for Visit * Consultation (Routine) - Closed Specialty Diagnoses / Procedures Referred By Wai del castillo Referred To Contact Gastroenterology Diagnoses Alford's esophagus Procedures Consult Samantha Escalante APRN [address] [place] [address] [facility] [address] [place] [address] Referral ID Status Reason Start Date Expiration Date Visits Re quested Visits Authorized [id number] Closed 03/12/2020 03/12/2021 1 1 Encounter Details Date Type Department Care Team (Late st Contact Info) Description 10/13/2020 1:00 PM EDT Office [place] [address] Thania Lau MD [facility] [place] [address] RUQ pain Social History Tobacco [...] from the original note were not included. [facility] Division of Gastroenterology and Hepatology Outpatient Consultation [...] TAKE 1 TABLET BY MOUTH DAILY ??? [place]-3 Fatty Acids-Fish Oil (FISH OIL OMEGA 3-6-9) 300-1,000 mg CpDR (Patient not taking: No sig reported) No current facility-administered medications for this visit. Allergies Allergen Reactions ??? Omeprazole Other reaction(s): Rash, itching all over ??? Iwrclza-Aqz-Xwg Reductase Inhibitors Other reaction(s): MUSCLE ACHES ??? [...] EGD Relevant Studies/Imaging: Reviewed in eDH IMPRESSION: Lynda Pedersen is a 64 y.o. female [...] of caffeine and chocolate -BE surveillance due [id number] -RTC 3 months This case was discussed with Dr. Percy Lau MD Fellow in Gastroenterology and Hepatology [place] [id number] P: [phone] F: [phone] CC Samantha Escalante APRN [address] [place] [address] * Thiago Greer MD - 10/13/2020 1:00 [...] quadrant documented in this encounter Care Teams Wind Turbine Installer Relationship Specialty Start Date End Date Samantha Escalante APRN [address] [place] [address] PCP - General Family Medicine 10/06/17 documented as of this encounter
--- OUTSIDE RECORDS SUMMARY | 2023-11-25 18:08 | XMS_ITS | Encounter Summary ---
Author Organization [facility] Address [address] [place] [address] Care Team Providers Care Corrugator Operator Name Role Phone Samantha Escalante CLIENT DELIVERY MANAGER Primary Care Provider [phone] Encounter Details Date Type Department Care Team (Late st Contact Info) Description 11/25/2023 Lab Requisition [facility] Pathology & Laboratory Medicine - [facility] [address] [place] [address] Outr Resulting Lab, Provider Social History Tobacco Use Types Packs/Day Years Used Date Smoking Tobacco: Never Assessed Interpersonal Safety Answer Date Record ed Physically Hurt Never 12/09/2019 Verbally Threaten Not on file 12/09/2019 Sex and Gender Information Value Date Recorded Sex Assigned at Not on file Gender Identity Not on file Sexual Orientation Not on file documented as of this encounter Plan of Treatment Scheduled Orders Name Type Priority Associated Diagnoses Orde r Schedule HEPATITIS B PROFILE Lab Routine Order ed: 11/25/2023 documented as of this encounter Visit Diagnoses Not on filedocumented in this encounter Care Teams Corrugator Operator Relationship Specialty Start Date End Date Samantha Escalante NP [address] [place] [address] [address] [place] [id number] PCP - General 01/07/22 documented as of this encounter
--- OUTSIDE RECORDS SUMMARY | 2023-11-25 18:08 | XMS_ITS | Encounter Summary ---
Author Organization [facility] Address [address] [place] [address] Care Team Providers Care Calendar Control Clerk Blood Bank Name Role Phone Rajat Roca MD Primary Care Provider [phone] Samantha Escalante NP Primary Care Provider Encounter Details Date Type Department Care Team (Late st Contact Info) Description 09/14/2019 Lab Requisition [facility] Pathology & Laboratory Medicine - [facility] [address] [place] [address] Outr Resulting Lab, Provider Social History Tobacco [...] Procedure Name Priority Date/Time Associated Diagnosis Comments ZZCOVID-19 TEST [facility] PCR Today 09/14/2019 13:57 EDT COVID-19 TESTING Routine 09/14/2019 13:5 7 EDT documented in this encounter Results * COVID-19 TEST [facility] PCR (09/14/2019 13:57 EDT) Swab ENTIRE NASOPHARYNX / Unknown 09/14/2019 13:57 EDT 09/16/2019 16:17 EDT Narrative [facility] - 09/17/2019 15:46 EDT Delay in testing. Potential for false negative results. Provider Outr Resulting Lab MICROBIOLOGY - GENERAL ORDERABLES Performing Organization Address [facility] Co de Phone Number [facility] [address] [place] [address] * COVID-19 TESTING (09/14/2019 13:57 EDT) COVID-19 rt-PCR Result Negative Negative 09/17/2019 15:46 EDT [facility] Comment: Delay in testing. Potential for false negative results. Negative results do not preclude 2019-nCoV infection and should not be used as the sole basis for treatment or other patient management decisions. Negative results must be combined with clinical observations, patient history, and epidemiological information. This test was developed and its performance characteristics determined by [facility]. It has not been cleared or approved by the US Food and Drug Administration. FDA does not require this test to go through premarket FDA review. This test is used for clinical purposes. It should not be regarded as investigational or for research. This laboratory is certified under the Clinical Laboratory Improvement Amendments (CLIA) as qualified to perform high complexity clinical laboratory testing. This test is based on the CDC COVID-19 Emergency Use Authorization (EUA) assay, with minor modification as defined by the FDA Performed on the [employer] Pulsar 7500 Fast. Performing Lab [facility] 09/17/2019 15:46 EDT [facility] Swab ENTIRE NASOPHARYNX / Unknown 09/14/2019 13:57 EDT 09/16/2019 16:17 EDT Provider Outr Resulting Lab MICROBIOLOGY - GENERAL ORDERABLES Performing Organization Address City/[facility]/ZIP Co de Phone Number [facility] [address] [place] [address] documented in this encounter Visit Diagnoses Not on filedocumented in this encounter Care Teams Calendar Control Clerk Blood Bank Relationship Specialty Start Date End Date Rajat Roca MD [address] [place] [address] PCP - General 04/20/16 01/06/22 Samantha Escalante NP [address] [place] [address] PCP - General 01/07/22 documented as of this encounter
--- OUTSIDE RECORDS SUMMARY | 2023-11-25 18:08 | XMS_ITS | Encounter Summary ---
Author Organization [facility] [place] [address] Care Team Providers Care Derrick Boat Operator Name Role Phone Samantha Escalante APRN Primary Care Provider Encounter Details Date Type Department Care Team (Late st Contact Info) Description 06/22/2021 3:00 PM EST Office Visit Dermatology at [address] [phone] Willard Navarrete MD [address] [facility] DERMATOLOG[facility] [place], [place] [id number] Seborrheic keratoses Social History Tobacco Use Types [...] keratoses documented in this encounter Care Teams Derrick Boat Operator Relationship Specialty Start Date End Date Samantha Escalante APRN [address] [place] [address] [address] [place] [address] PCP - General Family Medicine 10/06/17 documented as of this encounter
--- OUTSIDE RECORDS SUMMARY | 2023-11-25 18:08 | XMS_ITS | Encounter Summary ---
Author Organization [facility] Address [address] [place] [address] Care Team Providers Care Respiratory Services Manager Name Role Phone Rajat Roca MD Primary Care Provider [phone] Samantha Escalante NP Primary Care Provider [phone] Encounter Details Date Type Department Care Team (Late st Contact Info) Description 03/28/2019 Lab Requisition [facility] Pathology & Laboratory Medicine - [facility] [address] [place] [address] Geovany Ibrahim MD [address] [place] [phone] Encounter for other general examination Social History [...] Priority Date/Time Associated Diagnosis Comments SURGICAL PATHOLOGY Today 03/27/2019 12 :30 EST Encounter for other general examination documented in this encounter Results * SURGICAL PATHOLOGY (03/27/2019 12:30 EST) Final Diagnosis A. DUODENUM, BIOPSY: - Duodenal mucosa with mild focal gastric foveolar metaplasia. - No diagnostic evidence of celiac disease. B. STOMACH, ANTRUM, BIOPSY: - Gastric antral and fundic mucosa with mild focal active chronic inflammation. - Negative for Helicobacter pylori on immunohistochemical stain. See comment. C. ESOPHAGUS, GE JUNCTION, BIOPSY: - Consistent with Alford's esophagus. - Negative for dysplasia. D. COLON, SIGMOID, POLYPS X7, BIOPSY: - Hyperplastic polyps. E. RECTUM, POLYPS X3, BIOPSY: - Hyperplastic polyps. 03/30/2019 9:36 [facility] at 0936 Diagnosis Comment Immunoperoxidase stains were performed on this case to further characterize the lesion. ANTIBODY(CLONE)(BLOCK ):RESULT H pylori (Rabbit Monoclonal (SP48), [place]) (B-1): Negative NOTE: One or more of the reagents used in immunoperoxidase testing in this case may not have been cleared or approved by the U.S. Food and Drug Administration (FDA). The FDA has determined that such clearance or approval is not necessary. These tests are used for clinical purposes. They should not be regarded as investigational or for research. These reagents' performance characteristics have been determined by [facility] and/or by the referring laboratory. The positive and negative controls worked appropriately. If immunoperoxidase staining has been performed on alcohol fixed cytology specimens, which has not been fully validated, the assays should be interpreted with caution and correlated with clinical data. This laboratory is certified under the Clinical Laboratory Improvement Amendments of 1988 (CLIA-88) as qualified to perform high complexity clinical laboratory testing. 03/30/2019 9:36 [facility] Clinical History History Alford's, history polyps. 03/30/2019 9:36 [facility] Attestation By the signature below, the attending physician certifies that they have personally conducted a gross and/or microscopic examination of the described specimens and rendered or confirmed the above diagnosis. 03/30/2019 9:36 [facility] at 0936 Gross Description A. Received in formalin labelled with proper patient identification (initials S, D) and duodenal Bx are 4 saldana tissues (0.2 x 0.1 x 0.1 cm to 0.4 x 0.2 x 0.2 cm). Entirely submitted in A1 and A2. B. Received in formalin labelled with proper patient identification (initials S, D) and antrum Bx are 4 saldana tissues (0.1 x 0.1 x 0.1 cm to 0.3 x 0.2 x 0.1 cm). Entirely submitted in B1. C. Received in formalin labelled with proper patient identification (initials S, D) and GE junction are 3 saldana 8 tissues (0.2 x 0.1 x 0.1 cm to 0.4 x 0.2 x 0.1 cm). Entirely submitted in chart C1. D. Received in formalin labelled with proper patient identification (initials S, D) and sigmoid colon polyps are 16 saldana tissues (0.1 x 0.1 x 0.1 cm to 0.6 x 0.1 x 0.1 cm). Entirely submitted in D1 through D5. E. Received in formalin labelled with proper patient identification (initials S, D) and rectal polyps are 5 saldana-white tissues (0 2 x 0.1 x 0.1 cm to 0.4 x 0.1 x 0.1 cm). Entirely submitted in E 1 and E2. MIHRAB ALI 03/28/2019 11:48 03/30/2019 9:36 EST [facility] Scanned Images 03/30/2019 9:36 EST [facility] Tissue SPECIMEN FROM RECTUM / Unknown 03/27/2019 12:30 EST 03/28/2019 11:10 EST Tissue specimen (specimen) PYLORIC ANTRUM STRUCTURE / Unknown 03/27/2019 12:30 EST 03/28/2019 11:10 EST Tissue specimen (specimen) ESOPHAGEAL STRUCTURE / Unknown 03/27/2019 12:30 EST 03/28/2019 11:10 EST Tissue specimen (specimen) SIGMOID COLON STRUCTURE / Unknown 03/27/2019 12:30 EST 03/28/2019 11:10 EST Tissue specimen (specimen) SPECIMEN FROM RECTUM / Unknown 03/27/2019 12:30 EST 03/28/2019 11:10 EST Geovany Ibrahim MD PATHOLOGY ORDERA BLES [facility] [address] [place] [address] documented in this encounter Visit Diagnoses Diagnosis Encounter for other general examination documented in this encounter Care Teams Respiratory Services Manager Relationship Specialty Start Date End Date Rajat Roca MD [address] [place] [address] PCP - General 04/20/16 01/06/22 Samantha Escalante NP [address] [place] [address] PCP - General 01/07/22 documented as of this encounter
--- OUTSIDE RECORDS SUMMARY | 2023-11-25 18:08 | XMS_ITS | Encounter Summary ---
Author Organization [facility] Address [address] [place] [address] Care Team Providers Care Arc And Gas Welder Name Role Phone Elaineelin Samantha DELIA Primary Care Provider [phone] Encounter Details Date Type Department Care Team (Late st Contact Info) Description 11/02/2023 Lab Requisition [facility] Pathology & Laboratory Medicine - [facility] [address] [place] [address] Klever Mcneal MD [address] [place] [address], [address] [place] [address] Iron deficiency anemia, unspecified Social History Tobacco Use Types Packs/Day Years [...] Date/Time Associated Diagnosis Comments SURGICAL PATHOLOGY Today 11/02/2023 10 :24 EDT Iron deficiency anemia, unspecified documented in this encounter Results * SURGICAL PATHOLOGY (11/02/2023 10:24 EDT) Note to Patient The following pathology results have been interpreted by your pathologist and may be available to you before your health provider has had the opportunity to review them. Please allow time for your provider to receive these results and explore management options, if applicable. 11/03/2023 16:36 [facility] Final Diagnosis A. DUODENUM, ULCER, BIOPSY: - Duodenal mucosa with no significant diagnostic abnormalities. B. STOMACH, ULCER, BIOPSY: - Gastric fundic mucosa with no significant diagnostic abnormalities. - Negative for Helicobacter pylori on H&E stained sections. C. STOMACH, ANTRUM, BIOPSY: - Gastric fundic mucosa with no significant diagnostic abnormalities. - Negative for Helicobacter pylori on H&E stained sections. D. STOMACH, BODY, BIOPSY: - Gastric fundic mucosa with no significant diagnostic abnormalities. - Negative for Helicobacter pylori on H&E stained sections. E. ESOPHAGUS, BIOPSY: - Squamocolumnar mucosa with mild reactive changes. - Negative for intestinal metaplasia and dysplasia. F. ESOPHAGUS, BIOPSY: - Squamocolumnar mucosa with mild reactive changes. - Negative for intestinal metaplasia and dysplasia. G. RECTUM, POLYPS X6, BIOPSY: - Hyperplastic polyps. H. COLON, 50 CMS, POLYPS X2, BIOPSY: - Hyperplastic polyps. I. COLON, 45 CMS, POLYP, BIOPSY: - Hyperplastic polyp. J. COLON, 25 CMS, POLYP, BIOPSY: - Tiny strip of benign superficial colonic epithelium; insufficient for diagnosis. K. COLON, 15 CMS, POLYP, BIOPSY: - Hyperplastic polyp. 11/03/2023 16:36 [facility] Attestation By the signature below, the attending physician certifies that they have 1) personally conducted a gross and/or microscopic examination of the described specimen(s), and/or personally interpreted the results of laboratory testing of the described specimen(s), and 2) personally rendered or confirmed the above diagnosis. 11/03/2023 16:36 [facility] at 1636 Clinical History Anemia, Alford's esophagus, colon polyps, gastritis 11/03/2023 16:36 [facility] Gross Description A. Received in formalin labelled with proper patient identification (initials S, D) and 1. Duodenal ulcer bx's are 3 saldana-brown tissues (0.2 x 0.2 x 0.1 cm to less than 0.1 by less than 0.1 by less than 0.1 cm). Entirely submitted in A1. Please note the smallest tissue may not survive processing. B. Received in formalin labelled with proper patient identification (initials S, D) and 2. Stomach ulcer bx's is a single saldana tissue (0.4 x 0.2 x 0.1 cm). Submitted intact in B1. C. Received in formalin labelled with proper patient identification (initials S, D) and 3. Antrum bx is a single saldana tissue (0.5 x 0.1 by less than 0.1 cm). Submitted intact in C1. D. Received in formalin labelled with proper patient identification (initials S, D) and 4. Body bx is a single saldana tissue (0.4 x 0.3 x 0.1 cm). Submitted intact in D1. E. Received in formalin labelled with proper patient identification (initials S, D) and 5. Esophagus bx are 2 saldana tissues (0.4 x 0.2 x 0.1 cm and 0.3 x 0.1 x 0.1 cm). Entirely submitted in E1. F. Received in formalin labelled with proper patient identification (initials S, D) and 6. Alford's esophagus bx's are 3 saldana tissues (0.5 x 0.2 x 0.1 cm to 0.4 x 0.2 x 0.1 cm). Entirely submitted in F1. G. Received in formalin labelled with proper patient identification (initials S, D) and 7. Rectal polyps x6 are 6 saldana-white to saldana tissues (0.3 x 0.1 x 0.1 cm to 0.1 x 0.1 by less than 0.1 cm). Entirely submitted in G1-G2. Please note the smaller tissues may not survive processing. H. Received in formalin labelled with proper patient identification (initials S, D) and 8. Polyp @ 50 cm x 2 are 5 transparent saldana tissues (0.5 x 0.1 by less than 0.1 cm to 0.2 x 0.1 by less than 0.1 cm). Entirely submitted in H1. I. Received in formalin labelled with proper patient identification (initials S, D) and 9. Polyp @ 45 cm is a single transparent saldana tissue (0.3 x 0.2 by less than 0.1 cm). Submitted intact in I1. J. Received in formalin labelled with proper patient identification (initials S, D) and 10. Polyp @ 25 cm is a single transparent saldana-white tissue (0.3 x 0.2 by less than 0.1 cm). Submitted intact in J1. K. Received in formalin labelled with proper patient identification (initials S, D) and 11. Polyp @ 15 cm are 2 saldana tissues (0.6 x 0.1 x 0.1 cm and 0.1 by less than 0.1 by less than 0.1 cm). Entirely submitted in K1. Please note the smaller tissue may not survive processing. Emily Arron 11/03/2023 7:58 11/03/2023 16:36 EDT [facility] Performing Lab [facility] 11/03/2023 16:36 EDT [facility] Scanned Images 11/03/2023 16:36 T [facility] Tissue POLYP OF COLON / Unknown 11/02/2023 10:24 EDT 11/02/2023 20:15 EDT Tissue specimen (specimen) STOMACH STRUCTURE / Unknown 11/02/2023 10:24 EDT 11/02/2023 20:15 EDT Tissue specimen (specimen) STOMACH STRUCTURE / Unknown 11/02/2023 10:24 EDT 11/02/2023 20:15 EDT Tissue specimen (specimen) STOMACH STRUCTURE / Unknown 11/02/2023 10:24 EDT 11/02/2023 20:15 EDT Tissue specimen (specimen) ESOPHAGEAL STRUCTURE / Unknown 11/02/2023 10:24 EDT 11/02/2023 20:15 EDT Tissue specimen (specimen) ESOPHAGEAL STRUCTURE / Unknown 11/02/2023 10:24 EDT 11/02/2023 20:15 EDT Tissue specimen (specimen) SPECIMEN FROM RECTUM / Unknown 11/02/2023 10:24 EDT 11/02/2023 20:15 EDT Tissue specimen (specimen) POLYP OF COLON / Unknown 11/02/2023 10:24 EDT 11/02/2023 20:15 EDT Tissue specimen (specimen) POLYP OF COLON / Unknown 11/02/2023 10:24 EDT 11/02/2023 20:15 EDT Tissue specimen (specimen) POLYP OF COLON / Unknown 11/02/2023 10:24 EDT 11/02/2023 20:15 EDT Tissue specimen (specimen) POLYP OF COLON / Unknown 11/02/2023 10:24 EDT 11/02/2023 20:15 EDT Klever Mcneal MD PATHOLOGY ORDERABLES [facility] [address] [place] [address] documented in this encounter Visit Diagnoses Diagnosis Iron deficiency anemia, unspecified documented in this encounter Care Teams Arc And Gas Welder Relationship Specialty Start Date End Date Samantha Escalante NP [address] [place] [address] [address] [place] [address] PCP - General 01/07/22 documented as of this encounter
--- OUTSIDE RECORDS SUMMARY | 2023-11-25 18:08 | XMS_ITS | Encounter Summary ---
Author Organization [facility] [place] [address] Care Team Providers Care Blown Film Extrusion Operator Name Role Phone Samantha Escalante APRN Primary Care Provider Encounter Details Date Type Department Care Team (Late st Contact Info) Description 06/04/2021 11:30 AM EST Office Visit Dermatology at [address] [phone] Willard Parra MD [address] [facility] DER[facility] [place], [place] [id number] Seborrheic keratosis, inflamed; Seborrheic keratoses Social History [...] skin checkup, and [facility] of [facility] irritated seborrheic keratoses , [...] largest ones have resolved following treatment at [facility], all except 1. She has numerous small [...] keratoses documented in this encounter Care Teams Blown Film Extrusion Operator Relationship Specialty Start Date End Date Samantha Escalante APRN [address] [place] [address] PCP - General Family Medicine 10/06/17 documented as of this encounter
--- OUTSIDE RECORDS SUMMARY | 2023-11-25 18:08 | XMS_ITS | Encounter Summary ---
Author Organization Formerly [facility] [place] [address] Care Team Providers Care Wrapper Leaf Inspector Name Role Phone Samantha Escalante APRN Primary Care Provider Reason for Visit * Consultation (Routine) - Closed Specialty Diagnoses / Procedures Referred By Wai del castillo Referred To Contact Dermatology Diagnoses Disorder of the skin and subcutaneous tissue, unspecified Samantha Escalante APRN [address] [place] [address] [facility] Dermatology [address] [place] [address] Referral ID Status Reason Start Date Expiration Date V isits Requested Visits Authorized [id number] Closed Consult, Test & Treat Connection Center PCP Updated and/or Approved 03/13/2020 03/13/2021 6 6 Encounter Details Date Type Department Care Team (Late st Contact Info) Description 04/04/2020 10:00 AM EST Office Visit Dermatology at [address] [place] [address] Roc Nugent MD [facility] [address] CHERISE [place] [address] Dermatofibroma; Seborrheic keratoses; Seborrheic keratoses, [...] ??? gemfibrozil (LOPID) 600 mg tablet ??? [place]-3 Fatty Acids-Fish Oil (FISH OIL OMEGA 3-6-9) [...] Nugent MD Reviewed and signed by Roc Nugent MD Resident in Dermatology [facility] Patient seen in conjunction with staff campground manager: Piero Marc MD Department of Dermatology [facility] * Piero Marc III, MD - 04/04/2020 10:00 AM EST I was the supervising physician working with dermatology resident Dr. Nugent in the dermatology clinic during this patient visit. The level of resident supervision for this patient visit was indirectsupervision with direct supervision immediately available. (definition: [facility] GME Policy Statement on Graduate Medical Education, [...] (04/04/2020 10:57 AM EST) Surgical Pathology Report [id number] ? Location: [facility] The signing pathologist has (i) examined the relevant preparation(s) for the specimen(s) and (ii) rendered or confirmed the diagnosis(es). . ?Surgical Pathology DIAGNOSIS Vertex scalp, skin shave biopsy ONLY: - ??Verrucous keratosis, inflamed Electronically signed by: ??Wu YA, PhD, [facility] Verified: ??04/07/2020 ?Dermatopatholo gist Performed at: ??-[facility] Dept. of Pathology, [place], [place] SPECIMEN(S) SUBMITTED A - vertex scalp, skin shave biopsy ONLY (1) CLINICAL INFORMATION 1 cm mammillated plaque; filiform wart vs SK SPECIMEN PROCESSING A - Labeled/Fixative : Patient demographics, formalin. Quantity/Size: ??Single, 0.9 x 0.7 x 0.3 cm. Tissue Description: Shave of a pink-white verrucous skin papule. Sections/Process ing: Inked, quadrisected and entirely submitted in 1 cassette labeled A1. ??lyric [facility] 04/04/2020 10:5 7 AM EST Roc Nugent MD PATHOLOGY/CYTOLOGY O [place] Performing Organization Address City/[facility] Co de Phone Number [facility] [place] [address] * Specimen to Pathology (04/04/2020 10:57 AM EST) AP Specimen 04/04/2020 10:5 7 AM EST 04/04/2020 10:57 AM EST Narrative [facility] - 04/04/2020 10:57 AM EST Specimen requisition ordered. ??Separate Pathology report to follow Piero Marc III, MD PATHOLOGY/CYTOL OGY ORDERABLES [facility] [place] [address] documented in this encounter Visit Diagnoses Diagnosis Dermatofibroma Benign neoplasm of skin, site unspecified Seborrheic keratoses Seborrheic keratoses, inflamed Neoplasm of uncertain behavior of skin documented in this encounter Care Teams Wrapper Leaf Inspector Relationship Specialty Start Date End Date Samantha Escalante APRN [address] [place] [address] [address] [place] [address] PCP - General Family Medicine 10/06/17 documented as of this encounter
--- OUTSIDE RECORDS SUMMARY | 2023-11-25 18:08 | XMS_ITS | Encounter Summary ---
Author [facility] [place] [address] Care Team Providers Care Administration Internship Name Role Phone Samantha Escalante APRN Primary Care Provider Encounter Details Date Type Department Care Team (Late st Contact Info) Description 07/17/2021 External Results Pre-Admission Testing at [facility] [address] [place] [id number] Social History Tobacco Use Types Packs/Day Years [...] on filedocumented in this encounter Care Teams Administration Internship Relationship Specialty Start Date End Date Samantha Escalante APRN [address] [place] [address] PCP - General Family Medicine 10/06/17 documented as of this encounter
--- OUTSIDE RECORDS SUMMARY | 2023-11-25 18:08 | XMS_ITS | Encounter Summary ---
Author Organization [facility] Address [address] [place] [address] Care Team Providers Care Diamond Die Polisher Name Role Phone Samantha Escalante NP Primary Care Provider [phone] Encounter Details Date Type Department Care Team (Late st Contact Info) Description 04/15/2022 Lab Requisition [facility] Pathology & Laboratory Medicine - [address] [address] Outr Resulting Lab, Provider Social History Tobacco [...] Procedure Name Priority Date/Time Associated Diagnosis Comments H. PYLORI ANTIGEN Routine 04/15/2022 4:00 EST documented in this encounter Results * H. PYLORI ANTIGEN (04/15/2022 4:00 EST) H. Pylori Negative Negative 04/19/2022 15:08 EST [facility] Feces SPECIMEN FROM RECTUM / Unknown 04/15/2022 4:00 EST 04/15/2022 21:21 EST Narrative [facility] - 04/19/2022 15:08 EST Results were obtained with the [employer] [place] [facility] DEZ. Provider Outr Resulting Lab MICROBIOLOGY - GENERAL ORDERABLES [facility] [address] [place] [address] documented in this encounter Visit Diagnoses Not on filedocumented in this encounter Care Teams Diamond Die Polisher Relationship Specialty Start Date End Date Samantha Escalante NP [address] [place] [phone] PCP - General 01/07/22 documented as of this encounter
--- OUTSIDE RECORDS SUMMARY | 2023-11-25 18:08 | XMS_ITS | Encounter Summary ---
[place] [address] Care Team Providers Care Road Design Engineer Name Role Phone Samantha Escalante APRN Primary Care Provider Encounter Details Date Type Department Care Team (Late st Contact Info) Description 05/21/2022 Telephone Obstetrics [place] [phone] Liz Lind Social History Tobacco Use Types [...] on filedocumented in this encounter Care Teams Road Design Engineer Relationship Specialty Start Date End Date Samantha Escalante APRN [address] [place] [address] PCP - General Family Medicine 10/06/17 documented as of this encounter
--- OUTSIDE RECORDS SUMMARY | 2023-11-25 18:08 | XMS_ITS | Encounter Summary ---
Author Organization [facility] [place] [address] Care Team Providers Care Medical Bill Processor Name Role Phone Samantha Escalante APRN Primary Care Provider Encounter Details Date Type Department Care Team (Late st Contact Info) Description 11/18/2020 Ancillary Procedure [place] [address] Samantha Escalante APRN [address] [place], [place] [address] Social History Tobacco Use Types Packs/Day Years [...] Ultrasound Study (11/18/2020 12:00 AM EDT) Narrative [facility] - 11/19/2020 1:47 AM EDT This exam is auto-finalizing. It's purpose is for storage only. Samantha Escalante APRN IMG FILM LIBRARY OR DERABLES [place], [place] documented in this encounter Visit Diagnoses Not on filedocumented in this encounter Care Teams Medical Bill Processor Relationship Specialty Start Date End Date Samantha Escalante APRN [address] [place] [address] PCP - General Family Medicine 10/06/17 documented as of this encounter
--- OUTSIDE RECORDS SUMMARY | 2023-11-25 18:08 | XMS_ITS | Encounter Summary ---
Author Organization [facility] [place] [address] Care Team Providers Care Manager Telemetry Name Role Phone Samantha Escalante APRN Primary Care Provider [phone] Encounter Details Date Type Department Care Team (Late st Contact Info) Description 10/14/2020 Telephone [place] [address] Sharonda Durand Social History Tobacco Use Types [...] filedocumented in this encounter Care Teams Manager Telemetry Relationship Specialty Start Date End Date Samantah Escalante APRN [address] [place] [address] PCP - General Family Medicine 10/06/17 documented as of this encounter
--- OUTSIDE RECORDS SUMMARY | 2023-11-25 18:08 | XMS_ITS | Encounter Summary ---
Author Organization [facility] [place] [address] Care Team Providers Care Word Processing Machine Operator Name Role Phone Samantha Escalante APRN Primary Care Provider Encounter Details Date Type Department Care Team (Late st Contact Info) Description 10/30/2008 Orders [place] [address] Jordan Dixon MD [facility] [place] [address] Social History Tobacco Use Types Packs/Day Years Used Date Smoking Tobacco: Never Assessed [facility] Inpatient Questions Answer Date Recorded Does Anyone [...] 9:14 AM EDT) Surgical Pathology Report [id number] ? Location: [facility] The signing pathologist has (i) examined the [...] on filedocumented in this encounter Care Teams Word Processing Machine Operator Relationship Specialty Start Date End Date Samantha Escalante APRN [address] [place] [address] PCP - General Family Medicine 10/06/17 documented as of this encounter
--- OUTSIDE RECORDS SUMMARY | 2023-11-25 18:08 | XMS_ITS | Encounter Summary ---
Author Organization Formerly [facility] [place] [address] Care Team Providers Care Award Machine Operator Name Role Phone Samantha Escalante APRN Primary Care Provider Reason for Referral * Consultation (Urgent) - Closed Specialty Diagnoses / Procedures Referred By Wai del castillo Referred To Contact Gynecology Oncology Diagnoses Adnexal mass Silvana Moon MD [facility] DR OBSTETRICS & [place] [address] Tonia Eli MD [facility] [place] [address] Referral ID Status Reason Start Date Expiration Date V isits Requested Visits Authorized [id number] Closed Consult, Test & Treat 05/24/2022 05/24/2023 1 1 Reason for Visit * Reason Comments Establish Care Adnexal mass * Consultation (Routine) - Closed Specialty Diagnoses / Procedures Referred By Contyusuf t Referred To Contact Obstetrics and Gynecology Diagnoses Cyst of right ovary Samantha Escalante APRN [address] [place] [address] [facility] Senior Account Manager [address] [place] [address] Referral ID Status Reason Start Date Expiration Date V isits Requested Visits Authorized [id number] Closed Consult, Test & Treat PCP Updated and/or Approved 04/19/2022 04/19/2023 6 6 Encounter Details Date Type Department Care Team (Late st Contact Info) Description 05/24/2022 3:20 PM EST Office Visit Obstetrics [place] [phone] Silvana Moon MD [facility] DR OBSTETRICS & [place] [address] Adnexal mass (Primary Dx); S/P laparoscopic hysterectomy; [...] Pedersen Referring provider: Samantha Escalante APRN [address] [facility] [address] [address] Chief Complaint Patient presents with ??? Establish Care Adnexal mass HPI: Lynda Hummel is a 66 y.o. para 3 postmenopausal female presenting in referral with a complex adnexal mass. Pt presents with her granddaughter. 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 She was seen by her PCP at [facility] for a routine visit 04/2022 and mentioned [...] free fluid. She was seen by her client support administrator Dr. Plascencia ([facility]) who ordered blood work (on granddaughter's phone): Ca 125 7.2, AFP 6.4, beta hCG 6.2 and she was s ubsequently referred here for further evaluation and management. Of note, she is s/p laparoscopic hysterectomy and LSO at the age of 24 for endometriosis/endometrioma ([place], [place]). She recently underwent L5-S1 laminectomy 07/2021. [...] UA which was negative. Denies vaginal bleeding. zigzag machine operator history: Gender identity: female Pronouns: she/hers Menarche: 13yo Menses: monthly lasting 7 days, fairly heavy at first, some cramping Menopause: hysterectomy age 24, vasomotor sx started late 30s and lasted 10 years Pregnancies: , x2, last was CS (had first baby at age 15) HPV vaccination: no Pap hx/tx: no h/o abnormal STI: HSV CHEMICAL CELL CHANGER surgeries: s/p hysterectomy, bilateral salpingectomy, left oophorectomy for endometriosis with endometrioma ([place]) Sexually active: not currently Other hormone [...] 15.37) performed by Jacinto Apodaca MD at [facility] MAIN OR ??? TONSILLECTOMY AND ADENOIDECTOMY ??? [...] consultation. Pt discussed with Dr. Lopez, attending zigzag machine operator. Silvana Moon MD PGY4 05/24/2022 * Grupo [...] organs documented in this encounter Care Teams Award Machine Operator Relationship Specialty Start Date End Date Ava SamanthaCHACE barrios [address] [place] [address] PCP - General Family Medicine 10/06/17 documented as of this encounter
--- OUTSIDE RECORDS SUMMARY | 2023-11-25 18:08 | XMS_ITS | Encounter Summary ---
Author Organization [facility] [place] [address] Care Team Providers Care Typewriter Ribbon Winder Name Role Phone Samantha Escalante CHACE Primary Care Provider Encounter Details Date Type Department Care Team (Late st Contact Info) Description 06/11/2022 11:30 AM EST Clinical [place] [address] Social History Tobacco Use Types Packs/Day Years [...] 3rd or 4th+ generation cephalosporin. PAT Clinic PARTS SALESPERSON to place Allergy referral for formal penicillin allergy evaluation. Patient open to a phone consult from the allergy clinic. PLAN: Testing: Blood work + T&S Procedure date: 07/05 Alcira documented in this encounter Plan of Treatment Not on file documented as of this encounter Visit Diagnoses Not on filedocumented in this encounter Care Teams Typewriter Ribbon Winder Relationship Specialty Start Date End Date Samantha Escalante APRN [address] [place] [address] [address] [facility] [place] [address] PCP - General Family Medicine 10/06/17 documented as of this encounter
--- OUTSIDE RECORDS SUMMARY | 2023-11-25 18:08 | XMS_ITS | Encounter Summary ---
[place] [address] Care Team Providers Care Dumb Waiter Operator Name Role Phone Samantha Escalante APRN Primary Care Provider Reason for Referral * Consultation (Routine) - Closed Specialty Diagnoses / Procedures Referred By Wai t Referred To Contact Obstetrics and Gynecology Diagnoses Cyst of right ovary Samantha Escalante APRN [address] [place] [address] [facility] Topper Press Operator Automatic [address] [place] [phone] Referral ID Status Reason Start Date Expiration Date V isits Requested Visits Authorized [id number] Closed Consult, Test & Treat PCP Updated and/or Approved 04/19/2022 04/19/2023 6 6 Encounter Details Date Type Department Care Team (Late st Contact Info) Description 04/19/2022 Transcribe Orders eDH Incoming Referrals [phone] Samantha Escalante APRN [address] [place], [place] [address] Cyst of right ovary Social History Tobacco Use Types Packs/Day Years Used Date Smoking Tobacco: Former Smokeless Tobacco: Never Sex and Gender Information Value Date Recorded Sex Assigned at Not on file Gender Identity Not on file Sexual Orientation Not on file documented as of this encounter Plan of Treatment Scheduled Referrals Name Type Priority Associated Diagnoses Orde r Schedule Referral to Ob-Crime Victim Specialist Outpatient Referral Routine Cyst of right ovary Ordered: 04/19/2022 documented as of this encounter Visit Diagnoses Diagnosis Cyst of right ovary Other and unspecified ovarian cyst documented in this encounter Care Teams Dumb Waiter Operator Relationship Specialty Start Date End Date Samantha Escalante APRN [address] [place] [address] PCP - General Family Medicine 10/06/17 documented as of this encounter
--- OUTSIDE RECORDS SUMMARY | 2023-11-25 18:08 | XMS_ITS | Encounter Summary ---
[place] [address] Care Team Providers Care Manager Hematology Name Role Phone Samantha Escalante APRN Primary Care Provider Reason for Visit * Diagnostic Test (Routine) - Closed Specialty Diagnoses / Procedures Referred By Wai t Referred To Contact Radiology Diagnoses Coronary artery disease, angina presence unspecified, unspecified vessel or lesion type, unspecified whether [place] or transplanted heart Procedures NM Pharmacologic Stress and Rest Myocardial Perfusion Samantha Escalante APRN [address] [place] [address] [place] [address] Referral ID Status Reason Start Date Expiration Date V isits Requested Visits Authorized [id number] Closed Specialty Service Requested 12/27/2019 06/23/2020 1 1 Encounter Details Date Type Department Care Team (Late st Contact Info) Description 04/01/2020 7:38 AM EST Hospital Encounter [place] [address] Samantha Escalante APRN [address] [place], [place] [id number] Discharge Disposition: Home Social History Tobacco Use [...] gemfibrozil (LOPID) 600 mg tablet 10/28/2009 10/13/2020 [place]-3 Fatty Acids-Fish Oil (FISH OIL OMEGA 3-6-9) [...] unspecified vessel or lesion type, unspecified whether [place] or transplanted heart documented in this encounter [...] Arm documented in this encounter Care Teams Manager Hematology Relationship Specialty Start Date End Date Kikearely Samantha, CHACE [address] [place] [address] PCP - General Family Medicine 10/06/17 documented as of this encounter
--- OUTSIDE RECORDS SUMMARY | 2023-11-25 18:08 | XMS_ITS | Encounter Summary ---
Author Organization [facility] [place] [address] Care Team Providers Care Computational Chemist Name Role Phone Samantha Escalante APRN Primary Care Provider [phone] Reason for Visit * Reason Comments Follow-up Encounter Details Date Type Department Care Team (Late st Contact Info) Description 09/21/2021 10:45 AM EDT Office Visit Dermatology at [address] [address] Willard Parra MD [address] [facility] [place] [address] Dermatofibroma; Seborrheic keratoses; Seborrheic keratosis, inflamed Social [...] Patient knows that this will be an [id number] expense CC: Samantha Escalante APRN documented in this encounter Plan of Treatment Not on file documented as of this encounter Visit Diagnoses Diagnosis Dermatofibroma Benign neoplasm of skin, site unspecified Seborrheic keratoses Seborrheic keratosis, inflamed Inflamed seborrheic keratosis documented in this encounter Care Teams Computational Chemist Relationship Specialty Start Date End Date Samantha Escalante APRN [address] [place] [address] [address] [facility] [address] [place] [address] PCP - General Family Medicine 10/06/17 documented as of this encounter
--- OUTSIDE RECORDS SUMMARY | 2023-11-25 18:08 | XMS_ITS | Encounter Summary ---
Author Organization [facility]ly [facility] [place] [address] Care Team Providers Care Hand Etcher Helper Name Role Phone Samantha Escalante APRN Primary Care Provider [phone] Reason for Visit * Reason Comments Follow-up Encounter Details Date Type Department Care Team (Late st Contact Info) Description 06/17/2021 1:45 PM EST Office Visit Dermatology at [address] [address] Willard Parra MD [address] [facility] DERMATOLOGY [place], [place] [id number] Seborrheic keratosis, inflamed; Seborrheic keratoses Social History [...] keratoses documented in this encounter Care Teams Hand Etcher Helper Relationship Specialty Start Date End Date Samantha Escalante APRN [address] [place] [address] PCP - General Family Medicine 10/06/17 documented as of this encounter
--- OUTSIDE RECORDS SUMMARY | 2023-11-25 18:08 | XMS_ITS | Encounter Summary ---
Author Organization [facility]ly [facility] [place] [address] Care Team Providers Care Undercover Agent Name Role Phone Samantha Escalante APRN Primary Care Provider [phone] Encounter Details Date Type Department Care Team (Late st Contact Info) Description 07/21/2021 12:45 PM EDT Telephone Pre-Admission Testing at [facility] [address] [place] [address] Social History Tobacco Use Types [...] on filedocumented in this encounter Care Teams Undercover Agent Relationship Specialty Start Date End Date Samantha Escalante APRN [address] [place] [address] [address] [facility] [address] [place] [address] PCP - General Family Medicine 10/06/17 documented as of this encounter
--- OUTSIDE RECORDS SUMMARY | 2023-11-25 18:08 | XMS_ITS | Encounter Summary ---
Author Organization [facility] [place] [address] Care Team Providers Care Field Handyman Name Role Phone Samantha Escalante APRN Primary Care Provider [phone] Encounter Details Date Type Department Care Team (Late st Contact Info) Description 04/01/2020 7:38 AM EST Hospital Encounter Non-Invasive [place] [address] Samantha Escalante APRN [address] [place], [place] [id number] Coronary artery disease, angina presence unspecified, unspecified vessel or lesion type, unspecified whether [place] or transplanted heart Discharge Disposition: Home Social [...] gemfibrozil (LOPID) 600 mg tablet 10/28/2009 10/13/2020 [place]-3 Fatty Acids-Fish Oil (FISH OIL OMEGA 3-6-9) 300-1,000 mg CpDR Take by mouth daily. 10/29/19 10 07/21/2021 documented as of this encounter Plan of Treatment Not on file documented as of this encounter Procedures Procedure Name Priority Date/Time Associated Diagnosis Comments NUCLEAR PHARMACOLOGIC STRESS CARDIOLOGY Routine 04/01/2020 9:16 AM EST Coronary artery disease, angina presence unspecified, unspecified vessel or lesion type, unspecified whether [place] or transplanted heart STRESS TEST SCAN 04/01/2020 [...] unspecified vessel or lesion type, unspecified whether [place] or transplanted heart documented in this encounter Care Teams Field Handyman Relationship Specialty Start Date End Date Samantha Escalante APRN [address] [place], [place] [address]Y [facility] 1 [place] [address] PCP - General Family Medicine 10/06/17 documented as of this encounter
--- OUTSIDE RECORDS SUMMARY | 2023-11-25 18:08 | XMS_ITS | Encounter Summary ---
Author Organization [facility] Address [address] [place] [address] Care Team Providers Care Clinical Education Consultant Name Role Phone Rajat Roca MD Primary Care Provider [phone] Samantha Escalante NP Primary Care Provider [phone] Encounter Details Date Type Department Care Team (Late st Contact Info) Description 01/05/2022 Lab Requisition [facility] Pathology & Laboratory Medicine - [facility] [address] [place] [address] Ming Dhillon Jr., MD [address] [place] [phone] Encounter for other general examination Social History [...] Date/Time Associated Diagnosis Comments SURGICAL PATHOLOGY Today 01/05/2022 11 :36 EDT Encounter for other general examination documented in this encounter Results * SURGICAL PATHOLOGY (01/05/2022 11:36 EDT) Note to Patient The following pathology results have been interpreted by your pathologist and may be available to you before your health provider has had the opportunity to review them. Please allow time for your provider to receive these results and explore management options, if applicable. 01/17/2022 22:15 [facility] Final Diagnosis A. SOFT TISSUE OF KNEE, RIGHT, LIPOMA, EXCISION: - Lipoma with focal fat necrosis and reactive changes. 01/17/2022 22:15 [facility] Attestation By the signature below, the attending physician certifies that they have 1) personally conducted a gross and/or microscopic examination of the described specimen(s), and/or personally interpreted the results of laboratory testing of the described specimen(s), and 2) personally rendered or confirmed the above diagnosis. 01/17/2022 22:15 [facility] at 2215 Clinical History Fatty tissue right knee; lipoma/mass right knee 01/17/2022 22:15 [facility] Gross Description A. Received in formalin labelled with proper patient identification (initials S, D) and lipoma/mass R knee are 3 portions of yellow-saldana adipose tissue (2.6 x 2.2 x 1.0 cm in aggregate). The largest tissue is partially encapsulated by a pelayo-saldana, thin, semi-translucent membrane. The specimen is serially sectioned to reveal pale yellow to peripherally saldana-brown cut surfaces without hemorrhagic areas or necrosis. The specimen is entirely submitted in A1-A3. MIKI WHITFIELD(ASCP) 01/06/2022 7:41 01/17/2022 22:15 [facility] Performing Lab [facility] 01/17/2022 22:15 [facility] Scanned Images 01/17/2022 22:15 [facility] Tissue SOFT TISSUE / Unknown 01/05/2022 11:36 EDT 01/05/2022 17:00 EDT Ming Dhillon Jr., MD PATHOLO GY ORDERABLES [facility] [address] [place] [address] documented in this encounter Visit Diagnoses Diagnosis Encounter for other general examination documented in this encounter Care Teams Clinical Education Consultant Relationship Specialty Start Date End Date Rajat Roca MD [address] [place] [address] PCP - General 04/20/16 01/06/22 Samantha Escalante NP [address] [place] [address] PCP - General 01/07/22 documented as of this encounter
--- OUTSIDE RECORDS SUMMARY | 2023-11-25 18:08 | XMS_ITS | Encounter Summary ---
[place] [address] Care Team Providers Care Ceramic Sprayer Name Role Phone aSmantha Escalante APRN Primary Care Provider Encounter Details Date Type Department Care Team (Late st Contact Info) Description 05/24/2022 Telephone [place] [phone] Gerard Urena Social History Tobacco Use Types [...] on filedocumented in this encounter Care Teams Ceramic Sprayer Relationship Specialty Start Date End Date Samantha Escalante APRN [address] [place] [address] PCP - General Family Medicine 10/06/17 documented as of this encounter
--- OUTSIDE RECORDS SUMMARY | 2023-11-25 18:08 | XMS_ITS | Encounter Summary ---
Author Organization [facility] Address [address] [place] [address] Care Team Providers Care Doctor Assistant Name Role Phone Ava Samantha DELIA Primary Care Provider [phone] Encounter Details Date Type Department Care Team (Late st Contact Info) Description 02/17/2022 Lab Requisition [facility] Pathology & Laboratory Medicine - [facility] [address] [place] [address] Geovany Ibrahim MD [address] [place] [address] [place] [address] Encounter for other general examination Social History [...] Date/Time Associated Diagnosis Comments SURGICAL PATHOLOGY Today 02/17/2022 8: 28 EDT Encounter for other general examination documented in this encounter Results * SURGICAL PATHOLOGY (02/17/2022 8:28 EDT) Note to Patient The following pathology results have been interpreted by your pathologist and may be available to you before your health provider has had the opportunity to review them. Please allow time for your provider to receive these results and explore management options, if applicable. 02/22/2022 10:11 [facility] Final Diagnosis A. DUODENUM, BIOPSY: - Peptic duodenitis with lymphoid aggregates and rare Helicobacter organisms (Helicobacter immunostain). No celiac sprue or parasites. Plasma cells present. B. STOMACH, ANTRUM, BIOPSY: - Helicobacter gastritis. Helicobacter immunostain positive for organisms. C. ESOPHAGUS, GE JUNCTION, BIOPSY: - Alford mucosa. Background erosive/ulcerative reflux-type changes. No dysplasia. D. COLON, ASCENDING, POLYPS X2: - Fragments of sessile serrated adenomas. Deeper sections examined. E. COLON, TRANSVERSE, POLYPS X2, BIOPSY: - Fragments of sessile serrated adenomas. Deeper sections examined. F. COLON, SIGMOID, POLYPS X7, BIOPSY: - Fragments of hyperplastic polyps, 8 fragments. G. RECTUM, POLYPS X12, BIOPSY: - Fragments of hyperplastic polyps, 12 fragments. 02/22/2022 10:11 [facility] Diagnosis Comment H pylori (Rabbit Monoclonal (SP48), [place]): Performed on blacks A and B, positive at both sites. NOTE: IHC testing and interpretation was performed by [facility] laboratory. One or more of the reagents used in immunohistochemical testing in this case may not have been cleared or approved by the U.S. Food and Drug Administration (FDA). The FDA has determined that such clearance or approval is not necessary. These tests are used for clinical purposes. They should not be regarded as investigational or for research. The reagents performance characteristics have been determined by [facility] laboratory. This laboratory is certified under the Clinical Laboratory Improvement Amendment of 1988 (CLIA-88) as qualified to perform high complexity clinical laboratory testing. 02/22/2022 10:11 [facility] Attestation There was significan t resident/fellow involvement in the diagnostic evaluation of this case. By the signature below, the attending physician certifies that they have personally conducted a gross and/or microscopic examination of the described specimens and rendered or confirmed the above diagnosis. 02/22/2022 10:11 [facility] at 1011 Clinical History Anemia, h/o Alford's esophagus, h/o colon polyps 02/22/2022 10:11 [facility] Gross Description A. Received in formalin labelled with proper patient identification (initials S, D) and bx duodenum are 3 saldana-pink tissues ranging in size from 0.2 x 0.1 x 0.1 cm up to 0.5 x 0.2 x 0.1 cm. Submitted intact in A1. B. Received in formalin labelled with proper patient identification (initials S, D) and bx gastric antrum are 2 saldana-pink tissues measuring 0.5 x 0.2 x 0.1 cm and 0.6 x 0.2 x 0.1 cm. Submitted intact in B1. C. Received in formalin labelled with proper patient identification (initials S, D) and bx GE junction are 2 saldana-white tissues measuring 0.2 x 0.2 x 0.1 cm and 0.4 x 0.2 x 0.1 cm. Submitted intact in C1. D. Received in formalin labelled with proper patient identification (initials S, D) and ascending colon polyps x2 are 3 saldana-pink tissues ranging in size from 0.3 x 0.2 x 0.1 cm up to 0.7 x 0.3 x 0.1 cm. Submitted intact in D1. E. Received in formalin labelled with proper patient identification (initials S, D) and transverse colon polyps x2 are 2 saldana-pink tissues measuring 0.2 x 0.2 x 0.2 cm and 0.5 x 0.2 x 0.1 cm. Submitted intact in E1. F. Received in formalin labelled with proper patient identification (initials S, D) and sigmoid polyps x7 are 8 saldana-pink polypoid tissues ranging in size from 0.2 x 0.1 x 0.1 cm up to 0.3 x 0.2 x 0.2 cm. Submitted intact in F1-F2. G. Received in formalin labelled with proper patient identification (initials S, D) and rectal polyps x12 are 12 light saldana tissues ranging in size from 0.10.1 x 0.1 cm up to 0.4 x 0.2 x 0.1 cm. Submitted intact in G1-G3. MIKI LANG(ASCP) 02/17/2022 19:27 02/22/2022 10:11 [facility] Resident/Fell ow: Bertin Peña DO 02/22/2022 10:11 EDT [facility] Performing Lab [facility] 02/22/2022 10:11 EDT [facility] Scanned Images 02/22/2022 10:11 EDT [facility] Tissue SPECIMEN FROM RECTUM / Unknown 02/17/2022 8:28 EDT 02/17/2022 17:20 EDT Tissue specimen (specimen) PYLORIC ANTRUM STRUCTURE / Unknown 02/17/2022 8:28 EDT 02/17/2022 17:20 EDT Tissue specimen (specimen) ESOPHAGEAL STRUCTURE / Unknown 02/17/2022 8:28 EDT 02/17/2022 17:20 EDT Tissue specimen (specimen) POLYP OF COLON / Unknown 02/17/2022 8:28 EDT 02/17/2022 17:20 EDT Tissue specimen (specimen) POLYP OF COLON / Unknown 02/17/2022 8:28 EDT 02/17/2022 17:20 EDT Tissue specimen (specimen) POLYP OF COLON / Unknown 02/17/2022 8:28 EDT 02/17/2022 17:20 EDT Tissue specimen (specimen) SPECIMEN FROM RECTUM / Unknown 02/17/2022 8:28 EDT 02/17/2022 17:20 EDT Geovany Ibrahim MD PATHOLOGY ORDERA SOL[facility] [address] [place] [address] documented in this encounter Visit Diagnoses Diagnosis Encounter for other general examination documented in this encounter Care Teams Doctor Assistant Relationship Specialty Start Date End Date Samantha Escalante NP [address] [place] [address] [address] [place] [id number] PCP - General 01/07/22 documented as of this encounter
--- OUTSIDE RECORDS SUMMARY | 2023-11-25 18:08 | XMS_ITS | Clinical Summary ---
Author Organization [facility] Address [address] [place] [address] Care Team Providers Care Lead Software Architect Name Role Phone ElaineSamantha worthington DELIA Primary Care Provider [phone] Encounters Date Type Department Care Team Description 11/25/2023 Lab Requisition [facility] Pathology & Laboratory [facility] [address] [place] [address] Outr Resulting Lab, Provider 11/25/2023 Lab Requisition [facility] Pathology & Laboratory [facility] [address] [place] [address] Outr Resulting Lab, Provider 11/02/2023 Lab Requisition [facility] Pathology Laboratory [facility] [address] [place] [address] Klever Mcneal MD Iron deficiency anemia, unspecified from Last 3 Months Social History Tobacco Use Types Packs/Day Years Used Date Smoking Tobacco: Never Assessed Interpersonal Safety Answer Date Record ed Physically Hurt Never 12/09/2019 Verbally Threaten Not on file 12/09/2019 Sex and Gender Information Value Date Recorded Sex Assigned at Not on file Gender Identity Not on file Sexual Orientation Not on file Plan of Treatment Health Maintenance Due Date Last Done Comments Hepatitis C Screen 1955 RSV Immunization ( o r 60+ Years) (1 - 1-dose 60+ series) 2016 Fall Risk Screening 2021 COVID-19 Vaccine ( season) 2023 Procedures Procedure Name Priority Date/Time Associated Diagnosis Comments SURGICAL PATHOLOGY Today 11/02/2023 10 :24 EDT Iron deficiency anemia, unspecified from Last 3 Months Results * SURGICAL PATHOLOGY (11/02/2023 10:24 EDT) Note to Patient The following pathology results have been interpreted by your pathologist and may be available to you before your health provider has had the opportunity to review them. Please allow time for your provider to receive these results and explore management options, if applicable. 11/03/2023 16:36 [facility] Final Diagnosis A. DUODENUM, [...] POLYP, BIOPSY: - Hyperplastic polyp. 11/03/2023 16:36 [facility] Attestation By the signature below, the attending physician certifies that they have 1) personally conducted a gross and/or microscopic examination of the described specimen(s), and/or personally interpreted the results of laboratory testing of the described specimen(s), and 2) personally rendered or confirmed the above diagnosis. 11/03/2023 16:36 [facility] at 1636 Clinical History Anemia, Alford's esophagus, colon polyps, gastritis 11/03/2023 16:36 T [facility] Gross Description A. Received [...] smaller tissue may not survive processing. Emily Heller 11/03/2023 7:58 11/03/2023 16:36 EDT [facility] Performing Lab [facility] 11/03/2023 16:36 EDT [facility] Scanned Images 11/03/2023 16:36 T [facility] Tissue POLYP OF COLON [...] 20:15 EDT Klever Mcneal MD PATHOLOGY ORDERABLES [facility] [address] [place] [address] from Last 3 Months Care Teams Lead Software Architect Relationship Specialty Start Date End Date Samantha Escalante NP [address] [place] [address] [address] [place] [address] PCP - General 01/07/22
--- OUTSIDE RECORDS SUMMARY | 2023-11-25 18:08 | XMS_ITS | Encounter Summary ---
Author Organization [facility] [place] [address] Care Team Providers Care Engraver Rubber Name Role Phone Samantha Escalante APRN Primary Care Provider Encounter Details Date Type Department Care Team (Late st Contact Info) Description 04/09/2021 4:30 PM EST Ancillary Procedure [place] [address] Samantha Escalante APRN [address] [place], [place] [address] Social History Tobacco Use Types Packs/Day Years [...] MR Spine (04/09/2021 4:29 PM EST) Narrative [facility] - 04/09/2021 4:29 PM EST This exam is auto-finalizing. It's purpose is for storage only. Samantha Escalante APRN IMG FILM LIBRARY OR DERABLES [place], [place] documented in this encounter Visit Diagnoses Not on filedocumented in this encounter Care Teams Engraver Rubber Relationship Specialty Start Date End Date Samantha Escalante APRN [address] [place] [address] PCP - General Family Medicine 10/06/17 documented as of this encounter
--- OUTSIDE RECORDS SUMMARY | 2023-11-25 18:08 | XMS_ITS | Encounter Summary ---
Author Organization [facility] [place] [address] Care Team Providers Care Greaser Helper Name Role Phone Samantha Escalante APRN Primary Care Provider Encounter Details Date Type Department Care Team (Late st Contact Info) Description 02/05/2021 Telephone [place] [address] Bessie Dorman Social History Tobacco Use Types [...] on filedocumented in this encounter Care Teams Greaser Helper Relationship Specialty Start Date End Date Samantha Escalante APRN [address] [place] [address] [address] [place] [address] PCP - General Family Medicine 10/06/17 documented as of this encounter
--- OUTSIDE RECORDS SUMMARY | 2023-11-25 18:08 | XMS_ITS | Encounter Summary ---
Author Organization [facility] Address [facility] [place] [address] Care Team Providers Care Sourcing Coordinator Name Role Phone Samantha Escalante APRN [...] Expiration Date Visits Re quested Visits Authorized [id number] 1 1 Encounter Details Date Type Department Care Team (Late st Contact Info) Description 08/05/2021 2:21 PM EDT - 08/05/2021 4:36 PM EDT Surgery Operating Room Sheela Holman [address] [place] [address] Jacinto Apodaca MD [address] [place] [address] LAMINECTOMY, FACETECTOMY & FORAMINOTOMY,LUMBAR, ONE LEVEL (WRVU [...] six weeks after surgery with a Physician???s Barrel Rifler Hook at the surgeon???s office. You will have [...] when to stop taking it. Only take dheq-rfc-eqzbiag or prescription medicine for pain, discomfort or [...] If you have any questions, please call [facility] and Neurosurgery at [phone], during business hours of Tuesday through Tuesday from 8:00 a.m. until 4:00 p.m. In case of emergency during non-business hours, please call the same main number and follow the prompts to page the neurosurgeon second officer. SMOKING CESSATION INFORMATION: [place] QUITLINE: [place] QUITLINE: [email or web address] If you smoke, stop now! Smoking may impede healing. MAKE SURE YOU: Understand these instructions. Will seek medical care if you are feeling poor, or get worse. Will call the surgeon???s office with any questions or concerns at : [phone] Nursing information only: Original document to medical [...] Apodaca MD - 08/05/2021 3:03 PM EDT [facility] [place] [address] Patient Name: Lynda Pedersen : [id number] MR#: [id number] Case Date: 08/05/2021 Case Scheduled Time: 1421 Surgeon: Surgeon(s) and Role: * Jacinto Apodaca MD - Primary * Franki Mills PA - Physician Barrel Rifler Hook Preoperative diagnosis: SPONDYLOSIS DDD Postoperative diagnosis: SPONDYLOSIS DDD Actual procedure: Right L5-S1 hemilaminectomy, medial facetectomy, lateral recess decompression, A1momwiiigmitc, microsurgical discectomy. Use of the high- powered [...] duration of the operative session. The assistant dean of students adequately prepped the operative site and maintained [...] PM EDT Laminec/Facetect/Fo alissa, Lumbar 1 Seg ([id number]) 08/05/2021 2:41 PM EDT SPONDYLOSIS DDD documented [...] at 1435, Until Tue08/05/21 at 2056, Ming Bull. (triple valve mechanic): cabinet override 1445 (Due) documented in this encounter Care Teams Sourcing Coordinator Relationship Specialty Start Date End Date Samantha Escalante APRN [address] [place] [address] [address] [place] [address] PCP - General Family Medicine 10/06/17 documented as of this encounter
--- OUTSIDE RECORDS SUMMARY | 2023-11-25 18:08 | XMS_ITS | Encounter Summary ---
Author Organization [facility] Address [address] [place] [address] Care Team Providers Care Stonehand Name Role Phone Samantha Escalante TOBACCO SHAKER Primary Care Provider Encounter Details Date Type Department Care Team (Late st Contact Info) Description 11/25/2023 Lab Requisition [facility] Pathology & Laboratory [facility] [address] [place] [address] Outr Resulting Lab, Provider Social History Tobacco [...] Type Priority Associated Diagnoses Orde r Schedule HIV 1/2 ANTIGEN AND ANTIBODY , 4TH GENERATION Lab Routine Ordered: 024 documented as of this encounter Visit Diagnoses Not on filedocumented in this encounter Care Teams Stonehand Relationship Specialty Start Date End Date Samantha Escalante NP [address] [facility] [address] [place] [id number] PCP - General 01/07/22 documented as of this encounter
--- OUTSIDE RECORDS SUMMARY | 2023-11-25 18:08 | XMS_ITS | Encounter Summary ---
Author Organization [facility] [place] [address] Care Team Providers Care Piano Regulator Name Role Phone Samantha Escalante APRN Primary [...] Expiration Date Visits Re quested Visits Authorized [id number] 1 1 Encounter Details Date Type Department Care Team (Late st Contact Info) Description 08/05/2021 1:35 PM EDT Ancillary Procedure Radiology [place]ray [place] [address] Social History Tobacco Use Types Packs/Day Years [...] on filedocumented in this encounter Care Teams Piano Regulator Relationship Specialty Start Date End Date Ava CHACE Singh [address] [place] [address] PCP - General Family Medicine 10/06/17 documented as of this encounter
--- OUTSIDE RECORDS SUMMARY | 2023-11-25 18:08 | XMS_ITS | Referral Summary ---
Author Organization [facility] Address [address] [place] [address] Care Team Providers Care Circular Head Saw Operator Name Role Phone ElaineSamantha worthington DELIA Primary Care Provider [phone] Encounters Date Type Department Care Team Description 11/25/2023 Lab Requisition [facility] Pathology & Laboratory [facility] [address] [place] [address] Outr Resulting Lab, Provider 11/25/2023 Lab Requisition [facility] Pathology Laboratory [facility] [address] [place] [address] Outr Resulting Lab, Provider 11/02/2023 Lab Requisition [facility] Pathology [facility] [address] [place] [address] Klever Mcneal MD Iron deficiency anemia, unspecified [...] Orientation Not on file Plan of Treatment Not on file Procedures Procedure Name Priority Date/Time Associated Diagnosis [...] explore management options, if applicable. 11/03/2023 16:36 [facility] Final Diagnosis A. DUODENUM, ULCER, [...] POLYP, BIOPSY: - Hyperplastic polyp. 11/03/2023 16:36 [facility] Attestation By the signature below, the attending physician certifies that they have 1) personally conducted a gross and/or microscopic examination of the described specimen(s), and/or personally interpreted the results of laboratory testing of the described specimen(s), and 2) personally rendered or confirmed the above diagnosis. 11/03/2023 16:36 [facility] at 1636 Clinical History Anemia, Alford's esophagus, colon polyps, gastritis 11/03/2023 16:36 [facility] Gross Description A. Received in [...] Emily Heller 11/03/2023 7:58 11/03/2023 16:36 EDT [facility] Performing Lab [facility] 11/03/2023 16:36 EDT [facility] Scanned Images 11/03/2023 16:36 T [facility] Tissue POLYP OF COLON [...] 20:15 EDT Klever Mcneal MD PATHOLOGY ORDERABLES [facility] [address] [place], [place] [id number] from Last 3 Months Care Teams Circular Head Saw Operator Relationship Specialty Start Date End Date Samantha Escalante NP [address] [place] [address] [address] [place] [phone] PCP - General 01/07/22
--- OUTSIDE RECORDS SUMMARY | 2023-11-25 18:08 | XMS_ITS | Encounter Summary ---
Author Organization [facility] [place] [address] Care Team Providers Care Archives Specialist Name Role Phone Samantha Escalante APRN [...] Expiration Date Visits Re quested Visits Authorized [id number] 1 1 Encounter Details Date Type Department Care Team (Latest Contact Info) Description 08/05/2021 12:46 PM EDT - 08/05/2021 6:56 PM EDT Hospital Encounter Post Acute Care Unit at [facility] [address] [place] [id number] Jacinto Apodaca MD [address] [place] [address] Lumbar spondylosis Discharge Disposition: Home Social History [...] six weeks after surgery with a Physician???s Supervisor Mill at the surgeon???s office. You will have [...] when to stop taking it. Only take taaj-qcx-fzjhlsd or prescription medicine for pain, discomfort or [...] If you have any questions, please call [facility] Neurology and Neurosurgery at [phone], during business hours of Tuesday through Tuesday from 8:00 a.m. until 4:00 p.m. In case of emergency during non-business hours, please call the same main number and follow the prompts to page the neurosurgeon economic development specialist. SMOKING CESSATION INFORMATION: [place] QUITLINE: [place] QUITLINE: www.quitnet.com If you smoke, stop now! Smoking may impede healing. MAKE SURE YOU: Understand these instructions. Will seek medical care if you are feeling poor, or get worse. Will call the surgeon???s office with any questions or concerns at : [phone] Nursing information only: Original document to medical [...] Apodaca MD - 08/05/2021 3:03 PM EDT [facility] [place] [address] Patient Name: Lynda Pedersen : [id number] MR#: [id number] Case Date: 08/05/2021 Case Scheduled Time: 1421 Surgeon: Surgeon(s) and Role: * Jacinto Apodaca MD - Primary * Franki Mills PA - Physician Supervisor Mill Preoperative diagnosis: SPONDYLOSIS DDD Postoperative diagnosis: SPONDYLOSIS DDD Actual procedure: Right L5-S1 hemilaminectomy, medial facetectomy, lateral recess decompression, L5cboaoghxumzc, microsurgical discectomy. Use of the high- powered [...] duration of the operative session. The assistant boys track coach adequately prepped the operative site and maintained [...] PM EDT Laminec/Facetect/Fo alissa, Lumbar 1 Seg ([id number]) 08/05/2021 2:41 PM EDT SPONDYLOSIS DDD documented [...] 1435, Until Tue08/05/21 at 2056, Ming Bull (apparel rental clerk): cabinet override 1445 (Due) documented in this encounter Care Teams Archives Specialist Relationship Specialty Start Date End Date Samantha Escalante APRN [address] [place], [place] [address]Y [address] [place] [address] PCP - General Family Medicine 10/06/17 documented as of this encounter
--- OUTSIDE RECORDS SUMMARY | 2023-11-25 18:09 | XMS_ITS | Encounter Summary ---
Author Organization [facility] Address [address] [place] [address] Care Team Providers Care Fur Comber Name Role Phone Jacqui Anaya MD Primary Care Provider [phone] Encounter Details Date Type Department Care Team (Latest Contact Info) Description 04/14/2016 7:09 EST - 04/14/2016 23:59 EST Hospital Encounter [address] [address] Unknown, Provider, Discharge Disposition: Home or Self Care Social History Tobacco Use Types Packs/Day Years Used Date Smoking Tobacco: Never Assessed Sex and Gender Information Value Date Recorded Sex Assigned at Not on file Gender Identity Not on file Sexual Orientation Not on file documented as of this encounter Discharge Disposition Disposition Code Departure Means Destination Home or Self Fpc documented in this encounter Plan of Treatment Not on file documented as of this encounter Visit Diagnoses Not on filedocumented in this encounter Care Teams Fur Comber Relationship Specialty Start Date End Date Jacqui Anaya MD [address] [place] [address] PCP - General 04/13/11 04/19/16 documented as of this encounter
--- OUTSIDE RECORDS SUMMARY | 2023-11-25 18:09 | XMS_ITS | Encounter Summary ---
Author Organization [facility] Address [address] [place] [address] Care Team Providers Care Database Engineer Name Role Phone Rajat Roca MD Primary Care Provider [phone] Encounter Details Date Type Department Care Team (Late st Contact Info) Description 11/21/2017 Results Only [facility] [phone] Juwan Zapata MD [address] [place] [address] [address] [place], [place] [id number] Social History Tobacco Use Types Packs/Day Years Used Date Smoking Tobacco: Never Assessed Sex and Gender Information Value Date Recorded Sex Assigned at Not on file Gender Identity Not on file Sexual Orientation Not on file documented as of this encounter Plan of Treatment Not on file documented as of this encounter Procedures Procedure Name Priority Date/Time Associated Diagnosis Comments SURGICAL PATHOLOGY Routine 11/21/2017 15 :28 EDT documented in this encounter Results * SURGICAL PATHOLOGY (11/21/2017 15:28 EDT) Pathology Report: SURGICAL PATHOLOGY REPORT Reports generated via electronic interface contain original data; however they are lacking the format of the original report. Caution should be taken when reading/interpretin g unformatted reports. Name: ? GALINA VELIZ ? Accession #: ? [id number] ? : ? 1955 (Age: 61) ??F ? Collect Date: ? 11/21/2017 ? Location: ? [facility] ? Receive Date: ? 11/21/2017 ? Provider: JUWAN ZAPATA MD Copy to: MAURICE NEGRON PASTEURIZER HELPER ? Final Pathologic Diagnosis: A. STOMACH, ANTRUM, BIOPSY: - Antral mucosa with mild chronic gastritis and focal activity. - Associated reactive gastropathy. - See comment. B. GASTROESOPHAGEAL JUNCTION, BIOPSY: - Columnar mucosa with focal intestinal metaplasia, negative for dysplasia. - Adjoining squamous mucosa with features of reflux esophagitis. Comment: Deeper levels examined. ANTIBODY(CLONE)(BLO CK):RESULT H. pylori (Rabbit Monoclonal (SP48), [place]) (A1): Negative NOTE: ??One or more of the reagents used in immunoperoxidase testing in this case may not have been cleared or approved by the U.S. Food and Drug Administration (FDA). ??The FDA has determined that such clearance or approval is not necessary. ??These tests are used for clinical purposes. ??They should not be regarded as investigational or for research. ??These reagents' performance characteristics have been determined by [facility] and/or by the referring laboratory. ??The positive and negative controls worked appropriately. If immunoperoxidase staining has been performed on alcohol fixed cytology specimens, which has not been fully validated, the assays should be interpreted with caution and correlated with clinical data. ??This laboratory is certified under the Clinical Laboratory Improvement Amendments of 1988 (CLIA-88) as qualified to perform high complexity clinical laboratory testing. Dr. Kebede 11/23/2017 7:48 AM Document reviewed and electronically signed by: DIPTI BROCK MD Report ??Date: 11/24/2017 08:49 By the signature above, the attending physician certifies that he/she has personally conducted a gross and/or microscopic examination of the described specimens and rendered or confirmed the above diagnosis. Specimen(s) Received: A. ??Antral bxs B. ??Bxs GE junction Clinical History: GERD; A. R/O H. pylori; B. R/O Alford's Gross Description: A. ?Received in formalin labelled with proper patient identification (initials S, D) and antral biopsies are three fragments of saldana-brown tissue ranging from 0.2-0.4 cm in greatest dimension. The specimens are submitted entirely in A1. B. ?Received in formalin labelled with proper patient identification (initials S, D) and biopsies GE junction are three fragments of colorless tissue measuring 0.3 x 0.2 x 0.2 cm. The specimens are submitted entirely in B1. MIKI Wolfe ([facility]) 11/21/2017 3:49 PM End of Report [facility] 11/21/2017 15:2 8 EDT 11/21/2017 15:28 EDT Juwan Zapata MD PATHOLOGY ORDERA [facility] [address] [place] [address] documented in this encounter Visit Diagnoses Not on filedocumented in this encounter Care Teams Database Engineer Relationship Specialty Start Date End Date Rajat Roca MD [address] [place] [address] PCP - General 04/20/16 01/06/22 documented as of this encounter
--- OUTSIDE RECORDS SUMMARY | 2023-11-25 18:09 | XMS_ITS | Encounter Summary ---
Author Organization [facility] Address [address] [place] [address] Care Team Providers Care Spray Operator Name Role Phone Unavailable Primary Care Provider Unavailabl e Encounter Details Date Type Department Care Team (Late st Contact Info) Description 11/27/2003 Results Only [facility] - [facility] [address] [place] [address] Jacqui Stearns MD [address] [place] [address] Social History Tobacco Use Types Packs/Day Years Used Date Smoking Tobacco: Never Assessed Sex and Gender Information Value Date Recorded Sex Assigned at Not on file Gender Identity Not on file Sexual Orientation Not on file documented as of this encounter Plan of Treatment Not on file documented as of this encounter Procedures Procedure Name Priority Date/Time Associated Diagnosis Comments CYTOPATHOLOGY Routine 11/27/2003 0:00 EDT documented in this encounter Results * CYTOPATHOLOGY (11/27/2003 0:00 EDT) Pathology Report: CYTOPATHOLOGY REPORT Reports generated via electronic interface contain original data; however they are lacking the format of the original report. Caution should be taken when reading/interpreti ng unformatted reports. Name: ? GALINA VELIZ ? Accession #: ? [id number] : ? 1955 (Age: 47) ??F ?Collect Date: ? 11/27/2003 Location: ? [facility] ? Receive Date: ? 11/28/2003 Provider: ? JACQUI STEARNS MD Copy to: ? CYTOLOGIC DIAGNOSIS: ? Urine, voided, cytologic evaluation: 1. ?No malignant cells identified. 2. ?Mainly vaginal contamination with vaginosis; scant urothelial cells. Document reviewed and electronically signed by: ? MARCUS JOHNSTON MD [facility] Report Date: ??11/29/2003 15:37 By the signature above, the attending physician certifies that he/she has personally conducted a gross and/or microscopic examination of the described specimens and rendered or confirmed the above diagnosis. Specimen Type: ? Urine, Voided Clinical History: ? Hematuria - smoker. ? Gross Description: ? 1 tube of CytoLyt containing 50cc' s of clear, yellow fluid were received and processed by selective cellular enhancement technique. ? End of Report [facility] 11/27/2003 11/28/2003 15: 31 EDT Jacqui Stearns MD PATHOLOGY ORDERABLES [facility] [address] [place] [address] documented in this encounter Visit Diagnoses Not on filedocumented in this encounter
--- OUTSIDE RECORDS SUMMARY | 2023-11-25 18:09 | XMS_ITS | Encounter Summary ---
Author Organization [facility] Address [address] [place] [address] Care Team Providers Care Engine Repairer Production Name Role Phone Jacqui Anaya MD Primary Care Provider [phone] Encounter Details Date Type Department Care Team (Late st Contact Info) Description 04/14/2016 Results Only [facility] [phone] [place], DO [address] [facility] [address]MANUEL ARE[address] [place] [address] Social History Tobacco Use Types Packs/Day Years Used Date Smoking Tobacco: Never Assessed Sex and Gender Information Value Date Recorded Sex Assigned at Not on file Gender Identity Not on file Sexual Orientation Not on file documented as of this encounter Plan of Treatment Not on file documented as of this encounter Procedures Procedure Name Priority Date/Time Associated Diagnosis Comments SURGICAL PATHOLOGY Routine 04/14/2016 20 :11 EST documented in this encounter Results * SURGICAL PATHOLOGY (04/14/2016 20:11 EST) Pathology Report: SURGICAL PATHOLOGY REPORT Reports generated via electronic interface contain original data; however they are lacking the format of the original report. Caution should be taken when reading/interpret ing unformatted reports. Name: ? GALINA VELIZ ? Accession #: ? [id number] ? : ? 1955 (Age: 60) ??F ? Collect Date: ? 04/14/2016 ? Location: ? [facility] ? Receive Date: ? 04/15/2016 ? Provider: VNA MILLS DO Copy to: RIK CHILDS MD ? Final Pathologic Diagnosis: A. COLON, TRANSVERSE POLYP, BIOPSY: - ??Fragments of tubular adenoma. B. COLON, SIGMOID POLYP, BIOPSY: - ??Hyperplastic polyp. C. RECTUM, POLYPS X 3, BIOPSY: - ??Fragments of sessile serrated adenoma(s). - ??Fragments of hyperplastic polyp(s). D. RECTUM, DISTAL, POLYP, BIOPSY: - ??Fragments of hyperplastic polyp. Document reviewed and electronically signed by: ASHLEY WU MD Report ??Date: 04/19/2016 11:45 By the signature above, the attending physician certifies that he/she has personally conducted a gross and/or microscopic examination of the described specimens and rendered or confirmed the above diagnosis. Specimen(s) Received: A. ??Transverse colon polyp B. ??Sigmoid colon polyp C. ??Rectal polyp x3 D. ??Distal rectal polyp Clinical History: Colorectal screening Gross Description: A. ?Received in formalin labelled with proper patient identification (initials S, D) and #1 transverse colon polyp are three saldana-yellow glistening tissues (0.2 x 0.1 x 0.1 cm, 0.3 x 0.1 x 0.1 cm, and 0.5 x 0.3 x 0.2 cm). Entirely submitted in A1. B. ?Received in formalin labelled with proper patient identification (initials S, D) and #2 sigmoid colon polyp is a single saldana-yellow, slightly polypoid tissue fragment (0.4 x 0.3 x 0.2 cm). Submitted intact in B1. C. ?Received in formalin labelled with proper patient identification (initials S, D) and #3 rectal polyp x3 are six saldana-yellow polypoid tissues (0.2 x 0.2 x 0.2 cm to 0.3 x 0.3 x 0.2 cm). Entirely submitted in C1 and C2. D. ?Received in formalin labelled with proper patient identification (initials S, D) and #4 distal rectal polyp are two yellow-brown, slightly polypoid tissues (0.3 x 0.2 x 0.1 cm and 0.3 x 0.2 x 0.2 cm). Entirely submitted in D1. Imaninakia Reeves 04/16/2016 10:51 AM End of Report [facility] 04/14/2016 20:1 1 EST 04/15/2016 20:11 EST [place] DO PATHOLOGY ORDER CHAYITO [facility] [address] [place] [address] documented in this encounter Visit Diagnoses Not on filedocumented in this encounter Care Teams Engine Repairer Production Relationship Specialty Start Date End Date Jacqui Anaya MD [address] [place] [address] PCP - General 04/13/11 04/19/16 documented as of this encounter
--- OUTSIDE RECORDS SUMMARY | 2023-11-25 18:09 | XMS_ITS | Encounter Summary ---
Author Organization [facility] Address [address] [place] [address] Care Team Providers Care Real Estate Broker Associate Name Role Phone Rajat Roca MD Primary Care Provider [phone] Encounter Details Date Type Department Care Team (Latest Contact Info) Description 11/21/2017 19:26 EDT - 11/21/2017 23:59 EDT Hospital Encounter [address] [address] Unknown, Provider, Discharge Disposition: Home or Self Care Social History Tobacco Use Types Packs/Day Years Used Date Smoking Tobacco: Never Assessed Sex and Gender Information Value Date Recorded Sex Assigned at Not on file Gender Identity Not on file Sexual Orientation Not on file documented as of this encounter Discharge Disposition Disposition Code Departure Means Destination Home or Self Half-Way documented in this encounter Plan of Treatment Not on file documented as of this encounter Visit Diagnoses Not on filedocumented in this encounter Care Teams Real Estate Broker Associate Relationship Specialty Start Date End Date Rajat Roca MD [address] [place] [address] [place] [address] PCP - General 04/20/16 01/06/22 documented as of this encounter
--- OUTSIDE RECORDS SUMMARY | 2023-11-25 18:09 | XMS_ITS | Encounter Summary ---
Author Organization [facility] Address [address] [place] [address] Care Team Providers Care Divine Healer Name Role Phone Unavailable Primary Care Provider Unavailabl e Encounter Details Date Type Department Care Team (Late st Contact Info) Description 04/09/2011 Results Only [facility] - [facility] ([facility] [address] [place], [place] [address] [place], [address] [facility] [address] [place] [address] Social History Tobacco Use Types Packs/Day Years Used Date Smoking Tobacco: Never Assessed Sex and Gender Information Value Date Recorded Sex Assigned at Not on file Gender Identity Not on file Sexual Orientation Not on file documented as of this encounter Plan of Treatment Not on file documented as of this encounter Procedures Procedure Name Priority Date/Time Associated Diagnosis Comments SURGICAL PATHOLOGY Routine 04/09/2011 0:00 EST documented in this encounter Results * SURGICAL PATHOLOGY (04/09/2011 0:00 EST) Pathology Report: SURGICAL PATHOLOGY REPORT Reports generated via electronic interface contain original data; however they are lacking the format of the original report. Caution should be taken when reading/interpreti ng unformatted reports. Name: ? GALINA VELIZ ? Accession #: ? [id number] ? : ? 1955 (Age: 55) ??F ? Collect Date: ? 04/09/2011 ? Location: ? [facility] ? Receive Date: ? 04/09/2011 ? Provider: VAN [place] DO Copy to: JENNY STEARNS MD ? Final Pathologic Diagnosis: A. ?Colon, 25 cm, polyps, biopsies: 1. ?Fragments of hyperplastic polyps. B. ?Rectum, polyps, biopsies: ? 1. ?? Fragments of hyperplastic polyps. Document reviewed and electronically signed by: JUDITH SÁNCHEZ MD Report ??Date: 04/12/2011 16:01 By the signature above, the attending physician certifies that he/she has personally conducted a gross and/or microscopic examination of the described specimens and rendered or confirmed the above diagnosis. Specimen(s) Received: A. ?Polyps 25 cm ((#1) B. ? Polyps rectum (#2) Clinical History: ? Rectal bleeding Gross Description: ? Received in formalin labelled [place], Galina and polyps 25 cm are four saldana-brown, irregular soft tissue fragments that measure 0.1 x 0.1 x 0.1 cm up to 0.3 x 0.2 x 0.1 cm. ??The specimen is submitted intact in one cassette as (A). Received in formalin labelled [place], Galina and polyps rectum are six saldana-yellow, irregular soft tissue fragments which range in size from 0.2 x 0.1 x 0.1 cm up to 0.6 x 0.3 x 0.1 cm. ??The specimens are submitted intact as (B1) (B2). ??(Dr. Vera)/[facility] End of Report [facility] 04/09/2011 04/09/2011 16: 52 EST [place] DO PATHOLOGY ORDER CHAYITO [facility] [address] [place] [address] documented in this encounter Visit Diagnoses Not on filedocumented in this encounter
--- OUTSIDE RECORDS SUMMARY | 2023-11-25 18:09 | XMS_ITS | Encounter Summary ---
Author Organization [facility] Address [address] [place] [address] Care Team Providers Care Parts Consultant Name Role Phone Rajat Roca MD Primary Care Provider [phone] Encounter Details Date Type Department Care Team (Late st Contact Info) Description 09/21/2017 Results Only [facility] [phone] Samantha Negron NP [address] [place] [id number] Social History Tobacco Use Types Packs/Day Years Used Date Smoking Tobacco: Never Assessed Sex and Gender Information Value Date Recorded Sex Assigned at Not on file Gender Identity Not on file Sexual Orientation Not on file documented as of this encounter Plan of Treatment Not on file documented as of this encounter Procedures Procedure Name Priority Date/Time Associated Diagnosis Comments PAP TEST- RESULT ONLY Routine 09/21/2017 0:00 EDT documented in this encounter Results * PAP TEST- RESULT ONLY (09/21/2017 0:00 EDT) Pathology Report: CYTOPATHOLOGY REPORT Reports generated via electronic interface contain original data; however they are lacking the format of the original report. Caution should be taken when reading/interpreti ng unformatted reports. Name: ? GALINA VELIZ ? Accession #: ? [id number] ? : ? 1955 (Age: 61) ??F ?Collect Date: ? 09/21/2017 ? Location: ? [facility] ? Receive Date: ? 09/23/2017 ? Provider: SAMANTHA NEGRON UTILITY REPAIRER Copy to: ? Final Report SPECIMEN ADEQUACY ? Satisfactory for Evaluation - transformation zone component absent GENERAL CATEGORIZATION ? Negative for Intraepithelial Lesion or Malignancy INTERPRETATION ? Shift in asael present suggestive of bacterial vaginosis. Menstrual/Pregnanc y Status: ??Post Menopausal Specimen/Source: ??Pap Test, Vagina, ThinPrep Imaging System with manual evaluation Document reviewed and electronically signed by: ? Janett Hobbs, SCT(ASCP) ? Report ??Date: 09/30/2017 12:37 HPV with Pap Test ? Date Ordered: ? 09/30/2017 ? Status: ?? Signed Out ?Date Complete: ? 10/04/2017 ? By: ??System Interface ? Date Reported: ? 10/04/2017 ? Interpretation RESULT: High risk HPV testing is only FDA approved and validated for cervical or endocervical samples at the [facility]. It is not validated for vaginal samples as the test performance characteristics have not been evaluated. Credit issued. Sample has been sent to [facility] for HPV testing. Comments Document reviewed and electronically signed by: ? System Interface ? Report date: 10/04/2017 By the signature above, the attending physician certifies that he/she has personally conducted a gross and/or microscopic examination of the described specimens and rendered or confirmed the above diagnosis. End of Report [facility] 09/21/2017 09/23/2017 Samantha Negron UTILITY REPAIRER PATHOLOGY ORDERABLES [facility] [address] [place] [address] documented in this encounter Visit Diagnoses Not on filedocumented in this encounter Care Teams Parts Consultant Relationship Specialty Start Date End Date Rajat Roca MD [address] [place] [address] PCP - General 04/20/16 01/06/22 documented as of this encounter
== END 2023-11-25 18:03 | disposition home or self-care (01) ==
LOC: LBN 18:02
PROVIDERS: PCP Nurse Practitioner Family; Visit Provider Nurse Practitioner Family
DX: E11.9 Type 2 diabetes mellitus without complications (principal)
CPT/HCPCS: 82043; 82570

== ENCOUNTER → 2023-12-06 09:56 | Outpatient (BNVA) | payer MEDICARE, SELFPAY | PROVIDERS: PCP Nurse Practitioner Family; Referring Provider Nurse Practitioner Family; Visit Provider Surgery | DX: D50.9 Iron deficiency anemia, unspecified (principal) | CPT/HCPCS: 99443 ==

== ENCOUNTER → 2024-02-22 09:30 | Outpatient (BNVA) | payer MEDICARE, SELFPAY | PROVIDERS: PCP Nurse Practitioner Family; Referring Provider Nurse Practitioner Family; Visit Provider Physician Assistant Surgical | DX: J45.909 Unspecified asthma, uncomplicated (principal); G47.33 Obstructive sleep apnea (adult) (pediatric); K22.70 Barrett's esophagus without dysplasia; Z87.891 Personal history of nicotine dependence | CPT/HCPCS: 99214 ==

== ENCOUNTER 2024-03-23 00:39 | Outpatient (CLI) | payer MEDICARE, SELFPAY ==
--- OUTSIDE RECORDS SUMMARY | 2024-03-23 00:40 | XMS_ITS | Encounter Summary ---
Author Organization [facility] [place] [address] Care Team Providers Care Stitching Machine Feeder Or Offbearer Name Role Phone Samantha Escalante APRN Primary Care Provider Encounter Details Date Type Department Care Team (Late st Contact Info) Description 06/21/2022 12:27 PM EST - 06/21/2022 2:53 PM EST [place] [id number] Keli Eli MD [facility] [place] [address] LAPAROSCOPY, REMOVAL OF ADNEXA (WRVU 11.35) Social [...] PATIENT DISCHARGE INSTRUCTIONS Gynecologic Oncology phone number: [phone] (Nurse ext 4 then 4; appointment ext 1 then 4). After hours and on weekends please call hospital focusing machine operator at [phone] and ask for Gynecologic Oncologist senior manager mergers & acquisitions. Call your doctor if you develop: --A fever over 101 degrees --Severe pain --Increasing pain, redness, or discharge at any of your incisions --Heavy vaginal bleeding-soaking through a pad an hour Future Appointments and Orders Future Appointments and Orders Future Appointments Provider Department Dept Phone 07/09/2022 9:40 AM Keli Eli MD Gynecology Oncology at [facility] Arrive at: Director Product Safety Area 3K [phone] Activity level: Let your body guide you. [...] Eli MD - 06/21/2022 1:[address] [facility] Operative Note Patient Name: Lynda Pedersen : [id number] MR#: [id number] Case Date: 06/21/2022 Surgeon: Surgeon(s) and Role: [...] CYTOPATHOLOGY NON-GYNECOLOGICAL Pelvic Washings for Permanent OR28 [id number] 06/21/2022 1:34 PM Pertinent clinical data and significant therapy: ADNEXAL MASS Clinical impression: Pelvic Washings Procedure Type: Cystoscopy Specimen Type: Pelvic wash SPECIMEN TO PATHOLOGY Please perform frozen section OR28 [id number] ADNEXAL MASS Right Fallopian Tube and Right [...] endometrioma. ?? She was seen by her wheel tuner Dr. Plascencia ([facility]) who ordered tumor markers: Ca 125 7.2, AFP 6.4, bHCG 6.2. ?? I saw Estephanie for a visit in the general mica plate layer clinic and subsequently referred her here for [...] TO PATHOLOGY Routine 06/21/2022 1:38 PM EST NON-LUMBER YARD WORKER FINAL REPORT Routine 06/21/2022 1:34 PM EST CYTOPATHOLOGY NON-GYNECOLOGICAL Routine 06/21/2022 1:34 PM EST Lap, Rmv Adnexal Structure ([id number]) Yes 06/21/2022 12:49 PM EST ADNEXAL MASS POCT GLUCOSE Routine 06/21/2022 12:36 PM EST documented in this encounter Results * Surgical Pathology Report (06/21/2022 1:38 PM EST) Final Diagnosis [id number] ? Location: [facility]; The signing pathologist has (i) examined the relevant preparation(s) for the specimen(s) and (ii) rendered or confirmed the diagnosis(es). . ?Surgical Pathology DIAGNOSIS Right fallopian tube and ovary (salpingo-oophore ctomy): ?? 1. Ovarian serous cystadenoma. ?? 2. Benign fallopian tube. CR-0 Electronically signed by: ?Yadiel YA, Steve Guatam Verified: ??06/28/2022 15:10 ??Pathologist Performed at: ??-[facility] Dept. of Pathology, [place] [id number] Systems Architect: Liss Shepard MD, FCAP, ??CLIA Certificate: [id number] SPECIMEN(S) SUBMITTED A - Right fallopian tube [...] Fallopian Tube: 4.0 x 0.6 cm, fimbriated. Sewing Department Supervisor sections in 7 cassettes as follows: ?A1: FS1: Focal thickened cyst lining ?A2: Right fallopian tube, fimbriae ?A3: Right fallopian tube, cross sections ?A4-A7: Right ovary cystic lesion ??njrs ?Frozen Section FROZEN SECTION DIAGNOSIS AFS1 - Right fallopian tube and right ovary: ? - Serous cystadenoma. 06/21/22 14:28/jlb Electronically signed by: ?Jana YA, Bessie Vela Verified: ??06/21/2022 14:30 ??Pathologist Performed at: ??-[facility] Dept. of Pathology, [place] [address] Systems Architect: Liss Shepard MD, AP, ??CLIA Certificate: [id number] This intraoperative consultation should be interpreted as a preliminary diagnosis pending review of the entire specimen and special studies, if any. A final Surgical Pathology report will follow this preliminary Frozen Section report(s). 06/28/2022 3:10 PM EST [facility] OVARIAN PART / Unknown 06/21/2022 1:38 PM EST 06/21/2022 1:38 PM EST Keli Eli MD PATHOLOGY/CYTOLOGY ORDERABLES [facility] [place] [address] [facility] [place] [address] * Specimen to Pathology (06/21/2022 1:38 PM EST) AP Specimen 06/21/2022 1:38 PM EST 06/21/2022 1:38 PM EST Narrative [facility] - 06/21/2022 1:38 PM EST Specimen requisition ordered. ??Separate Pathology report to follow Keli Eli MD PATHOLOGY/CYTOLOGY ORDERABLES [facility] [place] [address] * Non-Clean Rice Grader And Reel Tender Final Report (06/21/2022 1:34 PM EST) Diagnosis Discussion [id number] ? Location: [facility]; The signing pathologist has (i) examined the relevant preparation(s) for the specimen(s) and (ii) rendered or confirmed the diagnosis(es). . ? Non-Clean Rice Grader And Reel Tender Final DIAGNOSIS Negative for Malignancy Electronically signed by: ?Nohemi YA, Flako Logan Verified: ??06/24/2022 14:45 ??Cytopathologis t Performed at: ??-[facility] Dept. of Pathology, [place] [address] Systems Architect: Liss Shepard MD, FCAP, ??CLIA Certificate: [id number] DISCUSSION Pelvic wash: Clusters of mesothelial cells present. (Cell block was examined.) CLINICAL INFORMATION Specimen Source : Pelvic wash Pertinent Clinical Data and Significant Therapy: Adnexal mass Clinical Impression : Pelvic washings Pertinent Radiologic Findings ??: (not provided) Gross Description: Received ??fresh, approximately 35 mL total volume of ?? cloudy, colorless fluid, with light flecks. Total Preparation: Liquid-Based Prep 1; Cell Block 1. 06/24/2022 2:45 PM EST [facility] Pelvic Washing 06/21/2022 1: 34 PM EST 06/21/2022 1:34 PM EST Narrative Authorizing Provider Result Kareem Eli MD PATHOLOGY/CYTOLOGY ORDERABLES Performing Organization Address City/[facility]/ZIP Co de Phone Number [facility] [place], [place] [id number] [address] [place] [address] * Cytopathology Non-Gynecological (06/21/2022 1:34 PM EST) AP Specimen 06/21/2022 1:34 PM EST 06/21/2022 1:34 PM EST Narrative [facility] - 06/21/2022 1:34 PM EST Specimen requisition ordered. ??Separate Pathology report to follow Authorizing Provider Result Kareem Eli MD PATHOLOGY/CYTOLOGY ORDERABLES Performing Organization Address [facility] Co de Phone Number [facility] [place] [address] * POCT Glucose (06/21/2022 12:36 PM EST) Glucose, POC 68 65 - 199 mg/dL [facility] Comment: Supplemental ranges: <140 mg/dL before meals <180 mg/dL all other times of the day Blood 06/21/2022 12:3 6 PM EST 06/21/2022 12:36 PM EST Narrative Authorizing Provider Result Kareem Eli MD POINT OF CARE TEST ORDERABLES Performing Organization Address [facility] Co de Phone Number [facility] [place] [address] documented in this encounter Visit Diagnoses Not [...] Routine documented in this encounter Care Teams Stitching Machine Feeder Or Offbearer Relationship Specialty Start Date End Date Samantha Escalante APRN [address] [place] [address] PCP - General Family Medicine 10/06/17 documented as of this encounter
--- OUTSIDE RECORDS SUMMARY | 2024-03-23 00:40 | XMS_ITS | Encounter Summary ---
Author Organization [facility] [place] [address] Care Team Providers Care Hair And Makeup Designer Name Role Phone Samantha Escalante APRN Primary Care Provider Encounter Details Date Type Department Care Team (Late st Contact Info) Description 06/23/2022 Telephone [place] [phone] Kristin Mattson RN Social History Tobacco Use [...] for Bactrim DS was sent to the [facility] in [place]. Informed patient that she will be taking this twice daily for 7 days. Advised patient to take a picture of herincisions later today with the help of her granddaughter so that we can compare the redness in caseit increases. Patient verbalized understanding and will take a picture later today. She will picking belt operator her antibiotics and start taking these. She [...] she would like this sent to [facility] in [place], [place]. documented in this encounter Plan of Treatment Not on file documented as of this encounter Visit Diagnoses Not on filedocumented in this encounter Care Teams Hair And Makeup Designer Relationship Specialty Start Date End Date Samantha Escalante APRN [facility] [address] [place] [address] PCP - General Family Medicine 10/06/17 documented as of this encounter
--- OUTSIDE RECORDS SUMMARY | 2024-03-23 00:40 | XMS_ITS | Encounter Summary ---
Author Organization [facility] [place] [address] Care Team Providers Care Clothespin Drier Operator Name Role Phone Samantha Escalante APRN [...] on filedocumented in this encounter Care Teams Clothespin Drier Operator Relationship Specialty Start Date End Date Samantha Escalante APRN [address] [place] [address] PCP - General Family Medicine 10/06/17 documented as of this encounter
--- OUTSIDE RECORDS SUMMARY | 2024-03-23 00:40 | XMS_ITS | Encounter Summary ---
[place] [address] Care Team Providers Care Legal Arbitrator Name Role Phone Samantha Escalante APRN Primary Care Provider [phone] Reason for Referral * Diagnostic Test (Routine) - Closed Specialty Diagnoses / Procedures Referred By Contac t Referred To Contact Radiology Diagnoses Spondylosis of lumbosacral region, unspecified spinal osteoarthritis complication status Low back pain, unspecified back pain laterality, unspecified chronicity, unspecified whether sciatica present Procedures CT Guided Injection SI Joint Jacinto Apodaca MD [address] [place] [address] [facility] [place] [address] Referral ID Status Reason Start Date Expiration Date V isits Requested Visits Authorized [id number] Closed Specialty Service Requested 06/15/2022 12/14/2023 1 1 Reason for Visit * Diagnostic Test (Routine) - Closed Specialty Diagnoses / Procedures Referred By Contac t Referred To Contact Radiology Diagnoses Spondylosis of lumbosacral region, unspecified spinal osteoarthritis complication status Low back pain, unspecified back pain laterality, unspecified chronicity, unspecified whether sciatica present Procedures CT Guided Injection SI Joint Jacinto Apodaca MD [address] [place] [address] [facility] [place] [address] Referral ID Status Reason Start Date Expiration Date V isits Requested Visits Authorized [id number] Closed Specialty Service Requested 06/15/2022 12/14/2023 1 1 Encounter Details Date Type Department Care Team (Latest Contact Info) Description 07/13/2022 10:04 AM EST - 07/13/2022 11:59 PM EST Hospital [place] [address] Jacinto Apodaca MD Spondylosis of lumbosacral region, unspecified spinal osteoarthritis [...] who have questions please contact the health critical care educator that requested your imaging first. ? Narrative [...] patients who have questions please contactthe health critical care educator that requested your imaging first. Jacinto Apodaca [...] (0-10 mL), Intra-articular, ONCE, 1 dose, On 07/13/22 at 1115, Radiology Protocol Medication, Routine Given 07/13/2022 10:45 AM EST 10 mg dexAMETHasone (PF) (Decadron) (10 mg/mL) injection 0-10 mg 0-10 mg, Intra-articular, ONCE, 1 dose, On 07/13/22 at 1115, Radiology Protocol Medication, Routine Given 07/13/2022 10:45 AM EST 10 mg lidocaine (Xylocaine) 1% (10 mg/mL) injection 0-100 mg 0-100 mg (0-10 mL), Intra-articular, ONCE, 1 dose, On 07/13/22 at 1115, Radiology Protocol Medication, Routine Given 07/13/2022 10:45 AM EST 10 mLs documented in this encounter Care Teams Legal Arbitrator Relationship Specialty Start Date End Date Samantha Escalante APRN [address] [place] [address] [address] [facility] [place] [address] PCP - General Family Medicine 10/06/17 documented as of this encounter
--- OUTSIDE RECORDS SUMMARY | 2024-03-23 00:40 | XMS_ITS | Encounter Summary ---
Author Organization [facility] [place] [address] Care Team Providers Care Veneer Cutter Name Role Phone Samantha Escalante APRN Primary Care Provider [phone] Reason for Visit * Auth/Cert (Routine) Specialty Diagnoses / Procedures Referred By Wai del castillo Referred To Contact Diagnoses BILATERAL SI JOINT DYSFUNCTION Procedures PRO ARTHRODESIS SACROILIAC JOINT PERCUTANEOUS Jacinto Apodaca MD [address] [facility] [place] [address] Referral ID Status Reason Start Date Expiration Date Visits Re quested Visits Authorized [id number] 10/26/2022 1 1 Encounter Details Date Type Department Care Team (Late st Contact Info) Description 11/17/2022 12:48 PM EDT Anesthesia Event Operating Room Sheela Holman [address] [place] [address] Ming Torres CRNA [facility] [place] [address] Anesthesia Record Procedure Summary Procedure Name Responsible [...] basilic vein (medial side of arm), left; uacn-wux-rclpqi catheter system; Anatomical Landmarks; 20 gauge; ES; [...] Date: 11/17/22 Room / Location: [facility] OR MAIN OR Anesthesia Start: 1248 Anesthesia [...] Injection SI Joint 07/13/2022 Ming Maki MD [facility] RAD CT SCAN FINGER TRIGGER RELEASE L and R thumbs HYSTERECTOMY laparoscopic with LSO for endometriosis LIPOMA RESECTION LUMBAR DISC SURGERY PRO LAMINEC/FACETECT/FORAMIN, LUMBAR 1 SEG Right 08/05/2021 LAMINECTOMY, FACETECTOMY & FORAMINOTOMY,LUMBAR, ONE LEVEL (WRVU 15.37) performed by Jacinto Apodaca MD at [facility] MAIN OR PRO LAP, RMV ADNEXAL STRUCTURE N/A 06/21/2022 LAPAROSCOPY, REMOVAL OF ADNEXA (WRVU 11.35) performed by Tonia Eli MD at [facility] MAIN OR TONSILLECTOMY AND ADENOIDECTOMY UPPER GASTROINTESTINAL ENDOSCOPY Social History Tobacco Use Smoking status: Former Smokeless tobacco: Never Substance Use Topics Alcohol use: Never Social History Substance and Sexual Activity Drug Use Never Allergies Allergen Reactions Omeprazole Other reaction(s): Rash, itching all over Gopnsja-Erg-Kqy Reductase Inhibitors Other reaction(s): MUSCLE ACHES Codeine Phosphate CIS - Nausea/Vomiting Penicillins CIS - Rash PAT Penicillin Allergy Risk Assessment 06/11/2022: Low risk penicillin allergy. OK to receive full dose of cefazolin, cefuroxime, or any 3rd or 4th+ generation cephalosporin. PAT Clinic PRODUCTION SUPPORT DEVELOPER to place Allergy referral for formal penicillin [...] mg documented in this encounter Care Teams Veneer Cutter Relationship Specialty Start Date End Date Samantha Escalante APRN [address] [place] [address] [address] [facility] [place] [address] PCP - General Family Medicine 10/06/17 documented as of this encounter
--- OUTSIDE RECORDS SUMMARY | 2024-03-23 00:40 | XMS_ITS | Encounter Summary ---
Author Organization [facility] [place] [address] Care Team Providers Care Front Office Developer Name Role Phone Samantha Escalante APRN Primary Care Provider Encounter Details Date Type Department Care Team (Late st Contact Info) Description 06/21/2022 12:49 PM EST Anesthesia Event [place] [address] Poly Singh MD [facility] [address] [place] [address] Anesthesia Record Procedure Summary Procedure Name Responsible [...] questions and acknowledgement of understanding Alex Moon, SUPERVISOR GREEN END DEPARTMENT 1336 Break/Relief Out 1448 Extubation/LMA Out 1448 [...] 1231; metacarpal vein (top of hand), right; yxvm-llv-mhhyzh catheter system; Anatomical Landmarks; 22 gauge; Kelsie ocampo rn; distraction, intradermal injection; 06/21/22; 1740 06/21/22 1231 by John Wallace, NUBIA 06/21/22 1740 by Leonela Reynolds, RN ETT Mask Ventilation: Bean sy (1); ETT Type: Cuffed, Oral; ETT [...] dorsal arch vein (top of hand), left; qwlb-uva-wotlcp catheter system; 18 gauge; Moon SUPERVISOR GREEN END DEPARTMENT; 06/21/22; 1740 06/21/22 1300 by Poly Singh [...] Procedure Summary Date: 06/21/22 Room / Location: [facility] OR [address] [place] [address] MAIN OR Anesthesia Start: 1249 Anesthesia Stop: [...] shown include unvalidated device data. Patient Location: PACU/[facility] Level of Consciousness: Awake and Alert [...] Other reaction(s): Rash, itching all over ??? Wboikan-Gvc-Ixg Reductase Inhibitors Other reaction(s): MUSCLE ACHES ??? Codeine Phosphate CIS - Nausea/Vomiting ??? Penicillins CIS - Rash [facility] Penicillin Allergy Risk Assessment 06/11/2022: Low risk penicillin allergy. OK to receive full dose of cefazolin, cefuroxime, or any 3rd or 4th+ generation cephalosporin. PAT Clinic DIRECTOR OF CONSUMER AFFAIRS to place Allergy referral for formal penicillin [...] risks discussed with patient. Plan discussed with SUPERVISOR GREEN END DEPARTMENT. Anesthesia Screening documented in this encounter Plan [...] mg documented in this encounter Care Teams Front Office Developer Relationship Specialty Start Date End Date Samantha Escalante APRN [address] [place] [address] PCP - General Family Medicine 10/06/17 documented as of this encounter
--- OUTSIDE RECORDS SUMMARY | 2024-03-23 00:40 | XMS_ITS | Encounter Summary ---
Author Organization [facility] [place] [address] Care Team Providers Care Manager Printing Name Role Phone Samantha Escalante APRN Primary Care Provider [phone] Encounter Details Date Type Department Care Team (Latest Contact Info) Description 06/11/2022 12:00 PM EST [place] [address] Pelvic mass in female Social History Tobacco [...] Pelvic mass in female COMPREHENSIVE METABOLIC PANEL Routine 06/11/2022 12:40 PM EST Pelvic mass in female documented in this encounter Results * Type and Screen Validity (06/11/2022 12:40 PM EST) T&S only valid at [facility] LABORATORY Comment:This Type and Screen result is only valid at the [facility] Blood 06/11/2022 12:4 0 PM EST 06/11/2022 12:45 PM EST Narrative Resulting Agency Comment Spec In Lab Tonia Eli MD BLOOD BANK LAB ORD ERABLES Performing Organization Address City/[facility]/ZIP Co de Phone Number [facility] [place] [address] * ABORH Recheck Status (06/11/2022 12:40 PM EST) ABORH Recheck Order Order Placed [facility] ABORH Type Recheck Complete [facility] Blood 06/11/2022 12:4 0 PM EST 06/11/2022 12:45 PM EST Narrative Resulting Agency Comment Spec In Lab Tonia Eli MD BLOOD BANK LAB ORD ERABLES [facility] [place] [address] * (ABNORMAL) Differential, Automated (06/11/2022 12:40 PM EST) Neutrophil % 49.8 % [facility] Neutrophil Absolute 3.44 1.70 - 6.10 x10(3)/[facility] LABORATORY Lymph % 37.2 % [facility] Lymphocytes Abs 2.6 0.9 - 3.2 x10(3)/[facility] LABORATORY Monocyte % 9.4 % [facility] LAB[facility]ORY Monocyte Abs 0.6 0.3 - 0.9 x10(3)/[facility] LABORATORY Eos % 1.5 % [facility] Eosinophils Abs 0.1 0.0 - 0.4 x10(3)/[facility] LABORATORY Basophil % 1.2 % [facility] Baso Absolute 0.1 0.0 - 0.1 x10(3)/[facility] LABORATORY Immature Gran % 0.90 % [facility] Comment: Immature granulocytes(IG's)percentage and absolute count will include metamyelocytes, myelocytes, and promyelocytes. Blood smears from CBCs yielding IG's will be scanned manually for concordance. If this scan disagrees with the automated IG or if promyelocytes are noted, a manual differential will be performed. Immature Gran Absolute 0.06(H) 0.00 - 0.04 x10(3)/[facility] LABORATORY Blood 06/11/2022 12:4 0 PM EST 06/11/2022 12:54 PM EST Narrative Resulting Agency Comment Spec In Lab Tonia Eli MD HEMATOLOGY ORDERAB LES [facility] [place] [address] * Hemogram (06/11/2022 12:40 PM EST) White Blood Cell 6.9 4.0 - 9.5 x10(3)/[facility] LABORATORY Red Blood Cell 4.84 4.00 - 5.21 x10(6)/[facility] LABORATORY Hemoglobin 14.0 11.7 - 15.5 g/dL [facility] Hematocrit 42.9 35.7 - 45.8 % [facility] Mean Cell Volume 88.6 82.6 - 94.4 fL [facility] Mean Cell Hemoglobin 28.9 27.1 - 32.0 pg [facility] Mean Cell Hemoglobin Concentration 32.6 31.7 - 35.0 g/dL [facility] Platelet 283 145 - 357 x10(3)/[facility] LABORATORY RDW Standard Deviation 44.7 37.0 - 46.0 fL [facility] RDW coefficient of variation 13.7 11.5 - 14.1 % [facility] Mean Platelet Volume 9.5 7.6 - 12.9 fL [facility] NRBC% auto 0.0 % [facility] NRBC Absolute 0.000 0.000 - 0.000 x10(3)/[facility] LABORATORY Blood 06/11/2022 12:4 0 PM EST 06/11/2022 12:54 PM EST Narrative Resulting Agency Comment Spec In Lab Tonia Eli MD HEMATOLOGY ORDERAB LES Performing Organization Address City/[facility]/ZIP Co de Phone Number [facility] [place] [address] * Antibody screen (06/11/2022 12:40 PM EST) Pathologist [facility] Ab Screen Interp Negative [facility] Expires at [id number] on: 06/24/2022 [facility] Comment: Corrected from 07/08/22 0:00:00 EST [Unknown] on 06/15/22 14:20:48 EST by Dusty Dc Blood 06/11/2022 12:4 0 PM EST 06/11/2022 12:45 PM EST Narrative Resulting Agency Comment Spec In Lab Tonia Eli MD BLOOD BANK LAB ORD ERABLES Performing Organization Address City/[facility]/ZIP Co de Phone Number [facility] [place] [address] * ABO/Rh Typing (06/11/2022 12:40 PM EST) Pathologist [facility] ABORH Type O Pos [facility] Blood 06/11/2022 12:4 0 PM EST 06/11/2022 12:45 PM EST Narrative Resulting Agency Comment Spec In Lab Tonia Eli MD BLOOD BANK LAB ORD ERABLES [facility] [place] [address] * (ABNORMAL) Comprehensive metabolic panel (non-fasting) (06/11/2022 12:40 PM EST) Glucose 90 65 - 199 mg/dL [facility] Comment:Diabetes: >=200 mg/d L plus symptoms Blood Urea Nitrogen 11 8 - 18 mg/dL [facility] Creatinine 0.75 0.70 - 1.20 mg/dL [facility] Sodium 137 135 - 145 mmol/L [facility] Potassium 4.7 3.5 - 5.0 mmol/L [facility] Comment: Please note: ??Patients with WBC >100,000 may have falsely elevated Potassium levels. ??For accurate Potassium quantification in these patients send serum separator tube (gold top) for subsequent determinations. ??Contact the Clinical Chemistry Laboratory if there are any questions. Chloride 100 98 - 107 mmol/L [facility] Carbon Dioxide 26 22 - 31 mmol/L [facility] Anion Gap 11 5 - 15 mmol/L [facility] Calcium 10.3 8.5 - 10.5 mg/dL [facility] Protein, Total 7.8 6.1 - 8.0 g/dL [facility] Albumin 4.8 3.2 - 5.2 g/dL [facility] Aspartate Aminotransferase 38(H) 0 - 30 unit/L [facility] Alanine Aminotransferase 53(H) 0 - 30 unit/L [facility] Alkaline Phosphatase 54 35 - 105 unit/L [facility] Bilirubin, Total 0.3 0.2 - 1.3 mg/dL [facility] Est Glomerular Filtration Rate 88 >=60 mL/min/1. 73 m?? [facility] Comment: This patient's estimated GFR was [...] MD CHEMISTRY ORDERABL ES Performing Organization Address [facility] Co de Phone Number [facility] [address] * CEA (06/11/2022 12:40 PM EST) Carcinoembryonic Antigen 0.7 <=3.8 ng/mL [facility] Comment: Reference range: ??(20-69 years): Non-smoker: ??less than or equal to 3.8 ng/mL Smoker: ??less than 5.5 ng/ml This result was generated using a Jose E La immunoassay. ??Results obtained from other methods or manufacturers cannot be used interchangeably with this method. Blood 06/11/2022 12:4 0 PM EST 06/11/2022 12:54 PM EST Narrative Resulting Agency Comment Spec In Lab Tnoia Eli MD CHEMISTRY ORDERABL ES Performing Organization Address [facility] Co de Phone Number [facility] [address] * Carbohydrate Antigen 19-9 (06/11/2022 12:40 PM EST) CA 19-9 7.4 <=35.0 u/ml [facility] Comment: This result was generated using a Jose E La immunoassay. ??Results obtained from other methods or manufacturers cannot be used interchangeably with this method. Blood 06/11/2022 12:4 0 PM EST 06/11/2022 12:54 PM EST Narrative Resulting Agency Comment Spec In Lab Tonia Eli MD CHEMISTRY ORDERABL ES [facility] [address] documented in this encounter Visit Diagnoses Diagnosis Pelvic mass in female Abdominal or pelvic swelling, mass or lump, unspecified site documented in this encounter Care Teams Manager Printing Relationship Specialty Start Date End Date Samantha Escalante APRN [address] [place] [address] PCP - General Family Medicine 10/06/17 documented as of this encounter
--- OUTSIDE RECORDS SUMMARY | 2024-03-23 00:40 | XMS_ITS | Encounter Summary ---
Author Organization [facility] [place] [address] Care Team Providers Care Senior Database Administrator Name Role Phone Samantha Escalante APRN Primary Care Provider Encounter Details Date Type Department Care Team (Late st Contact Info) Description 04/29/2023 Ancillary Procedure Radiology Library at [facility] [place] [address] Samantha Escalante APRN [address] [place] [address] Social History Tobacco Use Types Packs/Day Years Used Date Smoking Tobacco: Former Cigarettes 1 45 1 [id number] Smokeless Tobacco: Never Alcohol Use Standard Drinks/Week Comments Never 0 (1 standard drink = 0.6 oz pur e alcohol) [facility] Inpatient Questions Answer Date Recorded Does [...] MR Spine (04/29/2023 12:00 AM EST) Narrative [facility] - 05/04/2023 9:04 AM EST This exam is auto-finalizing. It's purpose is for storage only. Samantha Escalante APRN IMG FILM LIBRARY OR DERABLES Performing Organization Address City/State/[facility] Co de Phone Number [place], [place] documented in this encounter Visit Diagnoses Not on filedocumented in this encounter Care Teams Senior Database Administrator Relationship Specialty Start Date End Date Samantha Escalante APRN [address] [place] [address] PCP - General Family Medicine 10/06/17 documented as of this encounter
--- OUTSIDE RECORDS SUMMARY | 2024-03-23 00:40 | XMS_ITS | Encounter Summary ---
[place] [address] Care Team Providers Care Piano Bench Assembler Name Role Phone Samantha Escalante APRN Primary Care Provider Encounter Details Date Type Department Care Team (Late st Contact Info) Description 06/23/2022 Orders Only Gy[place] [address] Kristin Mattson RN Incisional infection Social History [...] infection documented in this encounter Care Teams Piano Bench Assembler Relationship Specialty Start Date End Date Samantha Escalante APRN [address] [place], [place] [address] PCP - General Family Medicine 10/06/17 documented as of this encounter
--- OUTSIDE RECORDS SUMMARY | 2024-03-23 00:40 | XMS_ITS | Encounter Summary ---
Author Organization [facility] [place] [address] Care Team Providers Care Stapler Machine Name Role Phone Samantha Escalante APRN Primary Care Provider Encounter Details Date Type Department Care Team (Late st Contact Info) Description 10/27/2023 6:05 PM EDT Ancillary Procedure Radiology Library at [facility] [place] [address] Samantha Escalante APRN [address] [place], [place] [address] Social History Tobacco Use Types Packs/Day Years Used Date Smoking Tobacco: Former Cigarettes 1 45 1 973 - 2018 Smokeless Tobacco: Never Alcohol Use Standard Drinks/Week Comments Never 0 (1 standard drink = 0.6 oz pur e alcohol) [facility] Inpatient Questions Answer Date Recorded Does [...] FILM LIBRARY OR DERABLES Performing Organization Address City/State/[facility] Co de Phone Number [place], [place] documented in this encounter Visit Diagnoses Not on filedocumented in this encounter Care Teams Stapler Machine Relationship Specialty Start Date End Date Samantha Escalante APRN [address] [place] [address] PCP - General Family Medicine 10/06/17 documented as of this encounter
--- OUTSIDE RECORDS SUMMARY | 2024-03-23 00:40 | XMS_ITS | Encounter Summary ---
Author Organization [facility] [place] [address] Care Team Providers Care Feed Blender Name Role Phone Samantha Escalante APRN Primary Care Provider Reason for Visit * Auth/Cert (Routine) Specialty Diagnoses / Procedures Referred By Wai del castillo Referred To Contact Diagnoses BILATERAL SI JOINT DYSFUNCTION Procedures PRO ARTHRODESIS SACROILIAC JOINT PERCUTANEOUS Jacinto Apodaca MD [address] [place] [address] Referral ID Status Reason Start Date Expiration Date Visits Re quested Visits Authorized [id number] 10/26/2022 1 1 Encounter Details Date Type Department Care Team (Latest Contact Info) Description 11/17/2022 11:10 AM EDT - 11/17/2022 4:12 PM EDT Hospital Encounter Post Acute Care Unit at [facility] [address] [place] [address] Jacinto Apodaca MD [address] [place] [address] Disorder of sacrum Discharge Disposition: Home Social [...] post-operative follow up appointment with your surgeon/physician???s graduate assistant scheduled. If you have any questions, [...] when to stop taking it. Only take [id number] or prescription medicine for pain, discomfort or [...] condition, questions or concerns. SMOKING CESSATION INFORMATION: [place] QUITLINE: [place] QUITLINE: [email or web address] If you smoke, it is recommended that you stop now! MAKE SURE YOU: Understand these instructions. Will seek medical care if you are feeling poor, or get worse. Will call the surgeon???s office with any questions or concerns at : [phone] Nursing information only: Original document to medical [...] Apodaca MD - 11/17/2022 1:08 PM EDT [facility] [place] [address] Patient Name: Lynda Pedersen : [id number] MR#: [id number] Case Date: 11/17/2022 Case Scheduled Time: 1340 Surgeon: Surgeon(s) and Role: * Jacinto Apodaca MD - Primary * Denny Fuentes PA - Physician Is Consultant Preoperative diagnosis: BILATERAL SI JOINT DYSFUNCTION Postoperative diagnosis: BILATERAL SI JOINT DYSFUNCTION Actual procedure: Bilateral SI joint instrumented fusion using Sixes screws, locally harvested bone, and bone morphogenic [...] CT scan. We imported the CTinto the [facility]alth station and planned our surgical trajectories. We [...] awl-tip tap is utilized to create a pilot control operator helper hole under live image guidance. Next the hole is palpated with the image guided probe to ensure no unexpected breach of cortex. Next the Sixes bone harvest device and final tap is utilized under live image guidance along the pilot control operator helper hole trajectory. This final hole is palpated again with the image guided probe. The bone harvest device is cleaned of its bone graft which is then implanted into the central channel of the Sixes screw along withbone morphogenic sponge. The ends of the Sixes screw were capped with demineralized bone matrix [...] the duration of the operative session. The graduate assistant adequately prepped the operative site and [...] SI JOINT DYSFUNCTION Arthrodesis Sacroiliac Joint Percutaneous (22371) 11/17/2022 12:48 PM EDT BILATERAL SI JOINT [...] RN) documented in this encounter Care Teams Feed Blender Relationship Specialty Start Date End Date Samantha Escalante APRN [address] [place] [address] PCP - General Family Medicine 10/06/17 documented as of this encounter
--- OUTSIDE RECORDS SUMMARY | 2024-03-23 00:40 | XMS_ITS | Encounter Summary ---
Author Organization [facility] [place] [address] Care Team Providers Care Forest Pathologist Name Role Phone Samantha Escalante APRN Primary Care Provider [phone] Encounter Details Date Type Department Care Team [...] on filedocumented in this encounter Care Teams Forest Pathologist Relationship Specialty Start Date End Date Samantha Escalante APRN [address] [place] [address] PCP - General Family Medicine 10/06/17 documented as of this encounter
--- OUTSIDE RECORDS SUMMARY | 2024-03-23 00:40 | XMS_ITS | Encounter Summary ---
Author Organization [facility] Address [address] [facility] [place] [address] Care Team Providers Care Master Welder Name Role Phone Samantha Escalante APRN Primary Care Provider [phone] Encounter Details Date Type Department Care Team (Late st Contact Info) Description 06/21/2022 Interpretation Only Radiology [address] [facility] [place] [address] Unknown None Social History Tobacco Use Types [...] on filedocumented in this encounter Care Teams Master Welder Relationship Specialty Start Date End Date Adjovu, Samantha, BPO SPECIALIST [address] [place] [address] PCP - General Family Medicine 10/06/17 documented as of this encounter
--- OUTSIDE RECORDS SUMMARY | 2024-03-23 00:40 | XMS_ITS | Encounter Summary ---
Author Organization [facility] [place] [address] Care Team Providers Care Electronic Specialist Name Role Phone Samantha Escalante APRN Primary Care Provider [phone] Encounter Details Date Type Department Care Team (Late st Contact Info) Description 09/23/2023 Orders Only Hematology [place] [address] Jacqui Small RESIDENCY DIRECTOR [facility] [address] [place] [address] Social History Tobacco Use Types Packs/Day Years [...] on filedocumented in this encounter Care Teams Electronic Specialist Relationship Specialty Start Date End Date Adjovu, SamanthaCHACE [address] [place] [address] PCP - General Family Medicine 10/06/17 documented as of this encounter
--- OUTSIDE RECORDS SUMMARY | 2024-03-23 00:40 | XMS_ITS | Clinical Summary ---
Author Organization [facility] [place] [address] Care Team Providers Care Flare Worker Name Role Phone Samantha Escalante CHACE Primary [...] 3rd or 4th+ generation cephalosporin. PAT Clinic TRADER to place Allergy referral for formal penicillin allergy evaluation. Patient open to a phone consult from the allergy clinic. Qciwdpc-Ekl-Wyb Reductase Inhibitors High 06/05/2019 Other reaction(s): MUSCLE [...] 06/11/2022 Barretts syndrome 06/11/2022 Seborrheic keratosis 04/14/2018 Social History Tobacco Use Types Packs/Day Years [...] Hepatitis C Screening 1974 Lipid Screening 1974 Tetanus/Diphtheria/Pertussis Vaccines (1 - Tdap) 12/03 Breast Cancer Share Decision Needed 1996 Breast Cancer screening 1996 Zoster vaccine (1 of 2) 2006 Bone Density Scan 2021 Pneumoccocal Vaccine: 65+ (1 of 1 - PCV) 2021 Pre-DM monitoring (HgbA1C or FBG) 06/11/2023 023 Covid-19 Vaccine (1 - season) 2024 Influenza (Flu) vaccine (1 o f 1 - Influenza standard series) 01/08/2024 Diabetes Screening (HgbA1C or Glucose) Discontinued Medical Devices Implanted Type Area Bag Valver Device Identifier Shelf Expiration Date Model / Serial / Lot Kit Graft Bone Sponge 8cc Bmp Syringe Lrg Granules Infuse ([id number]) ([employer]) - [id number] Implanted:Qty : 1 on 11/17/2022 by Jacinto Apodaca MD at [facility] IMPLANTS Midline: Sacrum [employer] 12/06/2022 [id number] / / [id number] Screw Spinal [id number] Sacroiliac Thread Sld Ti ([id number]) ([employer]) - [id number] Implanted:Qty : 1 on 11/17/2022 by Jacinto Apodaca MD at [facility] IMPLANTS Right: Sacrum [employer] 08/17/2029 [id number] / / [id number] Screw Spinal [id number] Sacroiliac Thread Sld Ti ([id number]) ([employer]) - [id number] Implanted:Qty : 1 on 11/17/2022 by Jacinto Apodaca MD at [facility] IMPLANTS Right: Sacrum [employer] 03/26/2030 [id number] / / [id number] Screw Spinal [id number] Sacroiliac Thread Sld Ti ([id number]) ([employer]) - [id number] Implanted:Qty : 1 on 11/17/2022 by Jacinto Apodaca MD at [facility] IMPLANTS Left: Sacrum [employer] 02/16/2030 [id number] / / [id number] Screw Spinal [id number] Sacroiliac Thread Sld Ti ([id number]) ([employer]) - [id number] Implanted:Qty : 1 on 11/17/2022 by Jacinto Apodaca MD at [facility] IMPLANTS Left: Sacrum [employer] 10/23/2030 [id number] / / [id number] Explanted Type Area Bag Valver Device Identifier Shelf Expiration Date Model / Serial / Lot Pin Fixation 150mm Ant Cerv Fusn Ss ([id number]) ([employer]) - [id number] Explanted:Qty : 1 on 11/17/2022 by Jacinto Apodaca MD at [facility] IMPLANTS Midline: Sacrum [employer] 07/07/2024 [id number] / / [id number] Procedures Procedure Name Priority Date/Time Associated Diagnosis Comments COMPREHENSIVE METABOLIC PANEL Routine 06/11/2022 12:40 PM EST Pelvic mass in female from Last 3 Months or Most Recently Relevant to Health Maintenance Results * (ABNORMAL) Comprehensive metabolic panel (non-fasting) (06/11/2022 12:40 PM EST) Glucose 90 65 - 199 mg/dL [facility] Comment:Diabetes: >=200 mg/d L plus symptoms Blood Urea Nitrogen 11 8 - 18 mg/dL [facility] Creatinine 0.75 0.70 - 1.20 mg/dL [facility] Sodium 137 135 - 145 mmol/L [facility] Potassium 4.7 3.5 - 5.0 mmol/L [facility] Comment: Please note: ??Patients with WBC >100,000 may have falsely elevated Potassium levels. ??For accurate Potassium quantification in these patients send serum separator tube (gold top) for subsequent determinations. ??Contact the Clinical Chemistry Laboratory if there are any questions. Chloride 100 98 - 107 mmol/L [facility] Carbon Dioxide 26 22 - 31 mmol/L [facility] Anion Gap 11 5 - 15 mmol/L [facility] Calcium 10.3 8.5 - 10.5 mg/dL [facility] Protein, Total 7.8 6.1 - 8.0 g/dL [facility] Albumin 4.8 3.2 - 5.2 g/dL [facility] Aspartate Aminotransferase 38(H) 0 - 30 unit/L [facility] Alanine Aminotransferase 53(H) 0 - 30 unit/L [facility] Alkaline Phosphatase 54 35 - 105 unit/L [facility] Bilirubin, Total 0.3 0.2 - 1.3 mg/dL [facility] Est Glomerular Filtration Rate 88 >=60 mL/min/1. 73 m?? [facility] Comment: This patient's estimated GFR [...] Lab Tonia Eli MD CHEMISTRY ORDERABL ES [facility] [place] [address] from Last 3 Months or Most Recently Relevant to Health Maintenance Advance Directives Documents on File Type Date Recorded Patient Hospice Plan Administrator Expl anation Advance Directives and Livin g Will 06/23/2022 12:13 PM 07/16/21 Care Teams Flare Worker Relationship Specialty Start Date End Date Samantha Escalante APRN [address] [place] [address] PCP - General Family Medicine 10/06/17
--- OUTSIDE RECORDS SUMMARY | 2024-03-23 00:40 | XMS_ITS | Encounter Summary ---
Author Organization Formerly [facility] [place] [address] Care Team Providers Care Asset Management Analyst Name Role Phone Samantha Escalante APRN Primary Care Provider Encounter Details Date Type Department Care Team (Latest Contact Info) Description 06/21/2022 11:06 AM EST - 06/21/2022 5:40 PM EST Hospital [place] [id number] Keli Eli MD [facility] [place] [address] Complex ovarian cyst (Primary Dx) Discharge Disposition: [...] PATIENT DISCHARGE INSTRUCTIONS Gynecologic Oncology phone number: [phone] (Nurse ext 4 then 4; appointment ext 1 then 4). After hours and on weekends please call hospital track laying equipment operator at [phone] and ask for Gynecologic Oncologist jury consultant. Call your doctor if you develop: --A fever over 101 degrees --Severe pain --Increasing pain, redness, or discharge at any of your incisions --Heavy vaginal bleeding-soaking through a pad an hour Future Appointments and Orders Future Appointments and Orders Future Appointments Provider Department Dept Phone 07/09/2022 9:40 AM Keli Eli MD [place] [facility] [place] at: Manager [place] Area 3K [phone] Activity level: Let your body guide you. [...] Eli MD - 06/21/2022 1:21 PM EST [facility] [place] Note Patient Name: Lynda Pedersen : [id number] MR#: [id number] Case Date: 06/21/2022 Surgeon: Surgeon(s) and Role: [...] CYTOPATHOLOGY NON-GYNECOLOGICAL Pelvic Washings for Permanent [id number] 06/21/2022 1:34 PM Pertinent clinical data and significant therapy: ADNEXAL MASS Clinical impression: Pelvic Washings Procedure Type: Cystoscopy Specimen Type: Pelvic wash SPECIMEN TO PATHOLOGY Please perform frozen section [id number] ADNEXAL MASS Right Fallopian Tube and Right [...] endometrioma. ?? She was seen by her chief load dispatcher Dr. Plascencia ([facility]) who ordered tumor markers: Ca 125 7.2, AFP 6.4, bHCG 6.2. ?? I saw Estephanie for a visit in the general sports lawyer clinic and subsequently referred her here for [...] TO PATHOLOGY Routine 06/21/2022 1:38 PM EST NON-INTERNAL RECRUITER FINAL REPORT Routine 06/21/2022 1:34 PM EST CYTOPATHOLOGY NON-GYNECOLOGICAL Routine 06/21/2022 1:34 PM EST Lap, Rmv Adnexal Structure ([id number]) Yes 06/21/2022 12:49 PM EST ADNEXAL MASS POCT GLUCOSE Routine 06/21/2022 12:36 PM EST documented in this encounter Results * Surgical Pathology Report (06/21/2022 1:38 PM EST) Final Diagnosis [id number] ? Location: [facility]; The signing pathologist has (i) examined the relevant preparation(s) for the specimen(s) and (ii) rendered or confirmed the diagnosis(es). . ?Surgical Pathology DIAGNOSIS Right fallopian tube and ovary (salpingo-oophore ctomy): ?? 1. Ovarian serous cystadenoma. ?? 2. Benign fallopian tube. CR-0 Electronically signed by: ?Yadiel YA, Steve Gautam Verified: ??06/28/2022 15:10 ??Pathologist Performed at: ??-[facility] [place], [place] [id number] Machine Maintenance Technician: Liss Shepard MD, FCAP, ??CLIA Certificate: [id number] SPECIMEN(S) SUBMITTED A - Right fallopian tube [...] Fallopian Tube: 4.0 x 0.6 cm, fimbriated. Loan Examiner sections in 7 cassettes as follows: ?A1: FS1: Focal thickened cyst lining ?A2: Right fallopian tube, fimbriae ?A3: Right fallopian tube, cross sections ?A4-A7: Right ovary cystic lesion ??njrs ?Frozen Section FROZEN SECTION DIAGNOSIS AFS1 - Right fallopian tube and right ovary: ? - Serous cystadenoma. 06/21/22 14:28/jlb Electronically signed by: ?Jana YA, Bessie Vela Verified: ??06/21/2022 14:30 ??Pathologist Performed at: ??-[facility] [place] Dept. of [place]ology, [place] [address] Machine Maintenance Technician: Liss Shepard MD, AP, ??CLIA Certificate: [id number] This intraoperative consultation should be interpreted as a preliminary diagnosis pending review of the entire specimen and special studies, if any. A final Surgical Pathology report will follow this preliminary Frozen Section report(s). 06/28/2022 3:10 PM EST [facility] OVARIAN PART / Unknown 06/21/2022 1:38 PM EST 06/21/2022 1:38 PM EST Keli Eli MD PATHOLOGY/CYTOLOGY ORDERABLES [facility] [place] [address] [facility] [place] [address] * Specimen to Pathology (06/21/2022 1:38 PM EST) AP Specimen 06/21/2022 1:38 PM EST 06/21/2022 1:38 PM EST Narrative [facility] - 06/21/2022 1:38 PM EST Specimen requisition ordered. ??Separate Pathology report to follow Keli Eli MD PATHOLOGY/CYTOLOGY ORDERABLES [facility] [place] [address] * Non-Receiving Operator Final Report (06/21/2022 1:34 PM EST) Diagnosis Discussion [id number] ? Location: [facility]; The signing pathologist has (i) examined the relevant preparation(s) for the specimen(s) and (ii) rendered or confirmed the diagnosis(es). . ? Non-Receiving Operator Final DIAGNOSIS Negative for Malignancy Electronically signed by: ?Nohemi YA, Flako Logan Verified: ??06/24/2022 14:45 ??Cytopathologis t Performed at: ??-[facility] [place] of [place]ology, [place] [address] Machine Maintenance Technician: Liss Shepard MD, FCAP, ??CLIA Certificate: [id number] DISCUSSION Pelvic wash: Clusters of mesothelial cells [...] Cell Block 1. 06/24/2022 2:45 PM EST [facility] Pelvic Washing 06/21/2022 1: 34 PM EST 06/21/2022 1:34 PM EST Narrative Authorizing Provider Result Kareem Eli MD PATHOLOGY/CYTOLOGY ORDERABLES Performing Organization Address [facility]/ZIP Co de Phone Number [facility] [place]ATORY [place], [place] [id number] [place] [address] [place] [address] * Cytopathology Non-Gynecological (06/21/2022 1:34 PM EST) AP Specimen 06/21/2022 1:34 PM EST 06/21/2022 1:34 PM EST Narrative [facility] - 06/21/2022 1:34 PM EST Specimen requisition ordered. ??Separate Pathology report to follow Authorizing Provider Result Kareem Eli MD PATHOLOGY/CYTOLOGY ORDERABLES Performing Organization Address [facility] Co de Phone Number [facility] [place] [address] * POCT Glucose (06/21/2022 12:36 PM EST) Glucose, POC 68 65 - 199 mg/dL [facility] Comment: Supplemental ranges: <140 mg/dL before meals <180 mg/dL all other times of the day Blood 06/21/2022 12:3 6 PM EST 06/21/2022 12:36 PM EST Narrative Authorizing Provider Result Kareem Eli MD POINT OF CARE TEST ORDERABLES Performing Organization Address [facility] Co de Phone Number [facility] [place] [address] documented in this encounter Visit Diagnoses Diagnosis [...] Routine documented in this encounter Care Teams Asset Management Analyst Relationship Specialty Start Date End Date Samantha Escalante APRN [address] [place] [address] PCP - General Family Medicine 10/06/17 documented as of this encounter
--- OUTSIDE RECORDS SUMMARY | 2024-03-23 00:40 | XMS_ITS | Encounter Summary ---
Author Organization [facility] [place] [address] Care Team Providers Care Bear Keeper Name Role Phone Samantha Escalante APRN Primary Care Provider [phone] Reason for Visit * Reason Comments Post Op Encounter Details Date Type Department Care Team (Late st Contact Info) Description 07/09/2022 9:40 AM EST Office Visit [place] [phone] Keli Forde MD [facility] [place] [address] Complex ovarian cyst Social History Tobacco Use [...] 9:40 AM EST Division [place] [address] Postoperative Visit: Patient Active Problem List Diagnosis [...] Verified: ??06/28/2022 15:10 ??Pathologist Performed at: ??-[facility] [place]. of [place]ology, [place] [address] Home Office Claim Specialist: Liss Shepard MD, AP, ??CLIA Certificate: [id number] Assessment and Plan: Lynda Pedersen is a [...] cyst documented in this encounter Care Teams Bear Keeper Relationship Specialty Start Date End Date Samantha Escalante APRN [address] [place] [address] [address] [facility] [address] [place] [address] PCP - General Family Medicine 10/06/17 documented as of this encounter
--- OUTSIDE RECORDS SUMMARY | 2024-03-23 00:40 | XMS_ITS | Encounter Summary ---
Author Organization Formerly [facility] [place] [address] Care Team Providers Care Customer Success Associate Name Role Phone Samantha Escalante APRN Primary Care Provider Reason for Visit * Auth/Cert (Routine) Specialty Diagnoses / Procedures Referred By Wai del castillo Referred To Contact Diagnoses BILATERAL SI JOINT DYSFUNCTION Procedures PRO ARTHRODESIS SACROILIAC JOINT PERCUTANEOUS Jacinto Apodaca MD [address] [place] [address] Referral ID Status Reason Start Date Expiration Date Visits Re quested Visits Authorized [id number] 10/26/2022 1 1 Encounter Details Date Type Department Care Team (Late st Contact Info) Description 11/17/2022 1:40 PM EDT - 11/17/2022 3:40 PM EDT Surgery Operating Room [address] [place] [address] Jacinto Apodaca MD [address] [place] [address] ARTHRODESIS,SACROILIAC JOINT FUSION (WRVU 12.13) Social History [...] post-operative follow up appointment with your surgeon/physician???s child welfare assistant scheduled. If you have any questions, [...] when to stop taking it. Only take gkvf-fys-ofvxxtw or prescription medicine for pain, discomfort or [...] condition, questions or concerns. SMOKING CESSATION INFORMATION: [place] QUITLINE: [place] QUITLINE: www.quit[employer] If you smoke, it is recommended that you stop now! MAKE SURE YOU: Understand these instructions. Will seek medical care if you are feeling poor, or get worse. Will call the surgeon???s office with any questions or concerns at : [phone] Nursing information only: Original document to medical [...] Apodaca MD - 11/17/2022 1:08 PM EDT [facility] Operative Note [facility] [address] [place] [address] Patient Name: Lynda Pedersen : [id number] MR#: [id number] Case Date: 11/17/2022 Case Scheduled Time: 1340 Surgeon: Surgeon(s) and Role: * Jacinto Apodaca MD - Primary * Denny Fuentes PA - Physician Laboratory Animal Care Veterinarian Preoperative diagnosis: BILATERAL SI JOINT DYSFUNCTION Postoperative diagnosis: BILATERAL SI JOINT DYSFUNCTION Actual procedure: Bilateral SI joint instrumented fusion using Coahoma screws, locally harvested bone, and bone morphogenic [...] CT scan. We imported the CTinto the [employer] station and planned our surgical trajectories. We [...] awl-tip tap is utilized to create a co pilot hole under live image guidance. Next the hole is palpated with the image guided probe to ensure no unexpected breach of cortex. Next the Coahoma bone harvest device and final tap is utilized under live image guidance along the co pilot hole trajectory. This final hole is palpated again with the image guided probe. The bone harvest device is cleaned of its bone graft which is then implanted into the central channel of the Coahoma screw along withbone morphogenic sponge. The ends of the Coahoma screw were capped with demineralized bone matrix [...] the duration of the operative session. The child welfare assistant adequately prepped the operative site and [...] SI JOINT DYSFUNCTION Arthrodesis Sacroiliac Joint Percutaneous (55808) 11/17/2022 12:48 PM EDT BILATERAL SI JOINT [...] RN) documented in this encounter Care Teams Customer Success Associate Relationship Specialty Start Date End Date Samantha Escalante APRN [address] [place] [address] PCP - General Family Medicine 10/06/17 documented as of this encounter
--- OUTSIDE RECORDS SUMMARY | 2024-03-23 00:40 | XMS_ITS | Encounter Summary ---
Author Organization [facility] [place] [address] Care Team Providers Care Railroad Police Name Role Phone Samantha Escalante APRN Primary Care Provider Encounter Details Date Type Department Care Team (Late st Contact Info) Description 11/16/2022 9:45 AM EDT Telephone Pre-Admission Testing at [facility] [address] [place] [address] Social History Tobacco Use Types [...] on filedocumented in this encounter Care Teams Railroad Police Relationship Specialty Start Date End Date Samantha Escalante APRN [address] [place], [place] [address] [address] [place] [address] PCP - General Family Medicine 10/06/17 documented as of this encounter
--- OUTSIDE RECORDS SUMMARY | 2024-03-23 00:40 | XMS_ITS | Encounter Summary ---
Author Organization [facility] Address [facility] [place] [address] Care Team Providers Care Labor Custodian Name Role Phone Samantha Escalante APRN Primary Care Provider Reason for Visit * Auth/Cert (Routine) Specialty Diagnoses / Procedures Referred By Wai del castillo Referred To Contact Diagnoses BILATERAL SI JOINT DYSFUNCTION Procedures PRO ARTHRODESIS SACROILIAC JOINT PERCUTANEOUS Jacinto Apodaca MD [address] [place] [address] Referral ID Status Reason Start Date Expiration Date Visits Re quested Visits Authorized [id number] 10/26/2022 1 1 Encounter Details Date Type Department Care Team (Late st Contact Info) Description 11/17/2022 11:55 AM EDT Ancillary Procedure Radiology Xray at [facility] [address] [place] [phone] Social History Tobacco Use Types Packs/Day Years Used Date Smoking Tobacco: Former Cigarettes 1 45 1 973 - 2017 Smokeless Tobacco: Never Alcohol Use Standard Drinks/Week Comments Never 0 (1 standard drink = 0.6 oz pur e alcohol) [facility] Inpatient Questions Answer Date Recorded Does Anyone [...] on filedocumented in this encounter Care Teams Labor Custodian Relationship Specialty Start Date End Date Samantha Escalante APRN [address] [place] [address] [address] [place] [address] PCP - General Family Medicine 10/06/17 documented as of this encounter
--- OUTSIDE RECORDS SUMMARY | 2024-03-23 00:40 | XMS_ITS | Encounter Summary ---
Author Organization [facility] [place] [address] Care Team Providers Care Cloth Booker Name Role Phone Samantha Escalante APRN Primary Care Provider Encounter Details Date Type Department Care Team (Late st Contact Info) Description 11/10/2022 External Results Pre-Admission Testing at [facility] [address] [place] [phone] Social History Tobacco Use Types Packs/Day Years [...] on filedocumented in this encounter Care Teams Cloth Booker Relationship Specialty Start Date End Date Samantha Escalante APRN [address] [place] [address] PCP - General Family Medicine 10/06/17 documented as of this encounter
--- OUTSIDE RECORDS SUMMARY | 2024-03-23 00:41 | XMS_ITS | Encounter Summary ---
Author Organization [facility] Address [facility] [place] [address] Care Team Providers Care Journalists And Other Writers Name Role Phone Samantha Escalante APRN Primary [...] Expiration Date Visits Re quested Visits Authorized [id number] 1 1 Encounter Details Date Type Department Care Team (Late st Contact Info) Description 08/05/2021 2:41 PM EDT Anesthesia [place] [address] Ming Bull, TRANSPORTATION ATTENDANT [place] [address] Tim Wu, TRANSPORTATION ATTENDANT [place] [address] Anesthesia Record Procedure Summary Procedure Name Responsible Anesthesiologist Anesthesia Start Time Anesthesia Stop Time LAMINECTOMY, FACETECTOMY & FORAMINOTOMY,LUMBAR, ONE LEVEL (WRVU 15.37) (Right: Spine Lumbar) Ming Bull TRANSPORTATION ATTENDANT 08/05/21 1441 08/05/21 1614 Events Date Time [...] IV Line - Single Lumen 08/05/21; 1312; pmmx-jse-pbuned catheter system; Anatomical Landmarks; 20 gauge; NUBIA Deleon; tolerated well; no longer indicated, removed per policy/procedure, catheter/device intact; 08/05/21; 1840 08/05/21 1312 by Marycarmen Deleon RN 08/05/21 1840 by Tashi Chappell, NUBIA ETT Mask Ventilation: Ea sy (1); ETT Type: Cuffed, Oral; ETT Size: 7.5 mm; Lucia Blade: 2; Notes: Asleep, Pre-O2, Stylette; Attempts: 1; Laryngoscopy Grade: 1; ETT Placement Verified By: Auscultation, Capnometry, Visual; Secured at Teeth: 22 cm; Removal Date: 08/05/21; Removal Time: 1600 08/05/21 1448 by Ming Bull, TRANSPORTATION ATTENDANT 08/05/21 1600 by Ming Bull, TRANSPORTATION ATTENDANT Incision 08/05/21; 1503; lowe r, Right, posterior; [...] Procedure Summary Date: 08/05/21 Room / Location: [facility] MAIN OR Anesthesia Start: 1441 Anesthesia Stop: 161 Procedure: LAMINECTOMY, FACETECTOMY & FORAMINOTOMY,LUMBAR, ONE LEVEL [...] Other reaction(s): Rash, itching all over ??? Rvgmbuk-Drn-Qdo Reductase Inhibitors Other reaction(s): MUSCLE ACHES ??? [...] mg documented in this encounter Care Teams Journalists And Other Writers Relationship Specialty Start Date End Date Ava Samantha, ENGINE GENERATOR ASSEMBLER [address] [place] [address] PCP - General Family Medicine 10/06/17 documented as of this encounter
--- OUTSIDE RECORDS SUMMARY | 2024-03-23 00:41 | XMS_ITS | Encounter Summary ---
Author Organization [facility] Address [address] [place] [address] Care Team Providers Care Woodworking Machine Operator Name Role Phone Samantha Escalante NP Primary Care Provider [phone] Encounter Details Date Type Department Care Team (Late st Contact Info) Description 04/15/2022 Lab Requisition [facility] Pathology & Laboratory Medicine - [address] [address] Outr Resulting Lab, Provider Social History Tobacco Use Types Packs/Day Years Used Date Smoking Tobacco: Never Assessed Interpersonal Safety Answer Date Record ed Physically Hurt Never 12/09/2019 Verbally Threaten Not on file 12/09/2019 Comments Unknown Sex and Gender Information Value Date Recorded Sex Assigned at Not on file Legal Sex Female 18:33 EST Gender Identity Not on file Sexual Orientation Not on file documented as of this encounter Plan of Treatment Not on file documented as of this encounter Procedures Procedure Name Priority Date/Time Associated Diagnosis Comments H. PYLORI ANTIGEN Routine 04/15/2022 4:00 EST documented in this encounter Results * H. PYLORI ANTIGEN (04/15/2022 4:00 EST) H. Pylori Negative Negative 04/19/2022 15:08 EST [facility] Feces SPECIMEN FROM RECTUM / Unknown 04/15/2022 4:00 EST 04/15/2022 21:21 EST Narrative [facility] - 04/19/2022 15:08 EST Results were obtained with the [employer] [place] [facility]. us Provider Outr Resulting Lab MICROBIOLOGY - GENER AL ORDERABLES Final Result [facility] [address] [place] [address] documented in this encounter Visit Diagnoses Not on filedocumented in this encounter Care Teams Woodworking Machine Operator Relationship Specialty Start Date End Date Samantha Escalante NP [address] [place] [address] [address] [place] [address] PCP - General 01/07/22 documented as of this encounter
--- OUTSIDE RECORDS SUMMARY | 2024-03-23 00:41 | XMS_ITS | Encounter Summary ---
Author Organization [facility] [place] [address] Care Team Providers Care Rn Telephone Triage Name Role Phone Samantha Escalante APRN Primary Care Provider Encounter Details Date Type Department Care Team (Late st Contact Info) Description 04/15/2022 Ancillary Procedure Radiology Library at [facility] [place] [address] Samantha Escalante APRN [address] [place] [address] Social History Tobacco Use Types [...] Ultrasound Study (04/15/2022 12:00 AM EST) Narrative [facility] - 04/20/2022 9:12 AM EST This exam is auto-finalizing. It's purpose is for storage only. Samantha Escalante APRN IMG FILM LIBRARY OR DERABLES [place], [place] documented in this encounter Visit Diagnoses Not on filedocumented in this encounter Care Teams Rn Telephone Triage Relationship Specialty Start Date End Date Samantha Escalante APRN [address] [place] [address] PCP - General Family Medicine 10/06/17 documented as of this encounter
--- OUTSIDE RECORDS SUMMARY | 2024-03-23 00:41 | XMS_ITS | Encounter Summary ---
[place] [address] Care Team Providers Care Rv Body Mechanic Name Role Phone Samantha Escalante APRN Primary Care Provider Reason for Referral * Consultation (Routine) - Closed Specialty Diagnoses / Procedures Referred By Wai t Referred To Contact Obstetrics and Gynecology Diagnoses Cyst of right ovary Samantha Escalante APRN [address] [place] [address] [facility] Core Maker Helper [address] [place] [phone] Referral ID Status Reason Start Date Expiration Date V isits Requested Visits Authorized [id number] Closed Consult, Test & Treat PCP Updated and/or Approved 04/19/2022 04/19/2023 6 6 Encounter Details Date Type Department Care Team (Late st Contact Info) Description 04/19/2022 Transcribe Orders eDH Incoming Referrals [phone] Samantha Escalante APRN [address] [place], [place] [address] Cyst of right ovary Social History Tobacco Use Types Packs/Day Years Used Date Smoking Tobacco: Former Smokeless Tobacco: Never Sex and Gender Information Value Date Recorded Sex Assigned at Not on file Gender Identity Not on file Sexual Orientation Not on file documented as of this encounter Plan of Treatment Scheduled Referrals Name Type Priority Associated Diagnoses Orde r Schedule Referral to Ob-Manager Language Outpatient Referral Routine Cyst of right ovary Ordered: 04/19/2022 documented as of this encounter Visit Diagnoses Diagnosis Cyst of right ovary Other and unspecified ovarian cyst documented in this encounter Care Teams Rv Body Mechanic Relationship Specialty Start Date End Date Samantha Escalante APRN [address] [place] [address] PCP - General Family Medicine 10/06/17 documented as of this encounter
--- OUTSIDE RECORDS SUMMARY | 2024-03-23 00:41 | XMS_ITS | Encounter Summary ---
Author Organization [facility] [place] [address] Care Team Providers Care Battery Wrecker Operator Name Role Phone Samantha Escalante APRN Primary Care Provider Encounter Details Date Type Department Care Team (Late st Contact Info) Description 06/26/2021 Telephone Dermatology at [address] [place] [address] Marcela Arevalo RN Social History [...] on filedocumented in this encounter Care Teams Battery Wrecker Operator Relationship Specialty Start Date End Date Ava SamanthaCHACE barrios [address] [place] [address] [address] [facility] 1 [place] [address] PCP - General Family Medicine 10/06/17 documented as of this encounter
--- OUTSIDE RECORDS SUMMARY | 2024-03-23 00:41 | XMS_ITS | Encounter Summary ---
Author Organization [facility] Address [address] [place] [address] Care Team Providers Care Geospatial Intelligence Analyst Name Role Phone Unavailable Primary Care Provider Unavailabl e Encounter Details Date Type Department Care Team (Late st Contact Info) Description 04/09/2011 Results Only [facility] Laboratory Services - [facility] ([facility]) [address] [place], [place] [id number] [place], [address] [facility] [address] [place] [address] Social History Tobacco Use Types Packs/Day Years Used Date Smoking Tobacco: Never Assessed Comments Unknown Sex and Gender Information Value [...] ? GALINA VELIZ ? Accession #: ? [id number] ? : ? 1955 (Age: 55) ??F [...] Gross Description: ? Received in formalin labelled [place] and polyps 25 cm are four saldana-brown, [...] are submitted intact as (B1) (B2). ??(Dr. Vera)/[facility] End of Report [facility] 04/09/2011 04/09/2011 16: 52 EST us [place] DO PATHOLOGY ORDERABLES Fi nal Result Performing Organization Address City/State/[facility] Co de Phone Number [facility] [address] [place] [address] documented in this encounter Visit Diagnoses Not on filedocumented in this encounter
--- OUTSIDE RECORDS SUMMARY | 2024-03-23 00:41 | XMS_ITS | Encounter Summary ---
Author Organization [facility] Address [address] [place] [address] Care Team Providers Care Accreditation Coordinator Name Role Phone Unavailable Primary Care Provider Unavailabl e Encounter Details Date Type Department Care Team (Late st Contact Info) Description 11/27/2003 Results Only [facility] - [facility] conversion [address] [place] [address] Jacqui Stearns MD [address] [place] [address] Social History Tobacco Use Types [...] ? GALINA VELIZ ? Accession #: ? [id number] : ? 1955 (Age: 47) ??F ?Collect Date: ? 11/27/2003 Location: ? [facility] ? Receive Date: ? 11/28/2003 Provider: ? JACQUI STEARNS MD Copy to: ? CYTOLOGIC DIAGNOSIS: ? Urine, voided, cytologic evaluation: 1. ?No malignant cells identified. 2. ?Mainly vaginal contamination with vaginosis; scant urothelial cells. Document reviewed and electronically signed by: ? MARCUS JOHNSTON MD [facility] Report Date: ??11/29/2003 15:37 By the signature [...] [facility] 11/27/2003 11/28/2003 15: 31 EDT us Jacqui Stearns MD PATHOLOGY ORDERABLES Final Re sult [facility] [address] [place] [address] documented in this encounter Visit Diagnoses Not on filedocumented in this encounter
--- OUTSIDE RECORDS SUMMARY | 2024-03-23 00:41 | XMS_ITS | Encounter Summary ---
Author Organization [facility] [place] [address] Care Team Providers Care Mailroom Assistant Name Role Phone Samantha Escalante APRN Primary Care Provider Encounter Details Date Type Department Care Team (Late st Contact Info) Description 07/17/2021 External Results Pre-Admission Testing at [facility] [address] [place] [phone] Social History Tobacco Use Types Packs/Day Years [...] on filedocumented in this encounter Care Teams Mailroom Assistant Relationship Specialty Start Date End Date Samantha Escalante APRN [address] [place] [address] PCP - General Family Medicine 10/06/17 documented as of this encounter
--- OUTSIDE RECORDS SUMMARY | 2024-03-23 00:41 | XMS_ITS | Encounter Summary ---
Author Organization [facility] [place] [address] Care Team Providers Care Container Finishing Inspector Name Role Phone Samantha Escalante APRN Primary Care Provider Reason for Referral * Consultation (Urgent) - Closed Specialty Diagnoses / Procedures Referred By Wai del castillo Referred To Contact Gynecology Oncology Diagnoses Adnexal mass Silvana Moon MD [facility] DR OBSTETRICS & [place] [address] Tonia Eli MD [facility] DR GYNECOLOGIC [place] [address] Referral ID Status Reason Start Date Expiration Date V isits Requested Visits Authorized [id number] Closed Consult, Test & Treat 05/24/2022 05/24/2023 1 1 Reason for Visit * Reason Comments Establish Care Adnexal mass * Consultation (Routine) - Closed Specialty Diagnoses / Procedures Referred By Wai t Referred To Contact Obstetrics and Gynecology Diagnoses Cyst of right ovary Samantha Escalante APRN [address] [place] [address] [facility] [address] [place] [address] Referral ID Status Reason Start Date Expiration Date V isits Requested Visits Authorized [id number] Closed Consult, Test & Treat PCP Updated and/or Approved 04/19/2022 04/19/2023 6 6 Encounter Details Date Type Department Care Team (Late st Contact Info) Description 05/24/2022 3:20 PM EST Office Visit Obstetrics [place] [phone] Silvana Moon MD [facility] [address] OBSTETRICS & [place] [address] Adnexal mass (Primary Dx); S/P laparoscopic hysterectomy; [...] Pedersen Referring provider: Samantha Escalante APRN [address] [facility] [address] [address] Chief Complaint Patient presents with ??? Establish Care Adnexal mass HPI: Lynda Hummel is a 66 y.o. para 3 postmenopausal female presenting in referral with a complex adnexal mass. Pt presents with her granddaughter. 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 She was seen by her PCP at [facility] for a routine visit 04/2022 and mentioned [...] free fluid. She was seen by her graduate teaching associate Dr. Plascencia ([facility]) who ordered blood work (on granddaughter's phone): Ca 125 7.2, AFP 6.4, beta hCG 6.2 and she was s ubsequently referred here for further evaluation and management. Of note, she is s/p laparoscopic hysterectomy and LSO at the age of 24 for endometriosis/endometrioma ([place], [place]). She recently underwent L5-S1 laminectomy 07/2021. [...] UA which was negative. Denies vaginal bleeding. electrical controls designer history: Gender identity: female Pronouns: she/hers Menarche: 13yo Menses: monthly lasting 7 days, fairly heavy at first, some cramping Menopause: hysterectomy age 24, vasomotor sx started late 30s and lasted 10 years Pregnancies: , x2, last was CS (had first baby at age 15) HPV vaccination: no Pap hx/tx: no h/o abnormal STI: HSV NUCLEAR MEDICINE MEDICAL DIRECTOR surgeries: s/p hysterectomy, bilateral salpingectomy, left oophorectomy for endometriosis with endometrioma ([place]) Sexually active: not currently Other hormone [...] 15.37) performed by Jacinto Apodaca MD at [facility] MAIN OR ??? TONSILLECTOMY AND ADENOIDECTOMY [...] consultation. Pt discussed with Dr. Lopez, attending electrical controls designer. Silvana Moon MD PGY4 05/24/2022 * Grupo [...] organs documented in this encounter Care Teams Container Finishing Inspector Relationship Specialty Start Date End Date Ava SamanthaCHACE barrios [address] [place] [address] PCP - General Family Medicine 10/06/17 documented as of this encounter
--- OUTSIDE RECORDS SUMMARY | 2024-03-23 00:41 | XMS_ITS | Encounter Summary ---
Author [facility] [place] [address] Care Team Providers Care Heel Lining Paster Name Role Phone Samantha Escalante APRN Primary [...] on filedocumented in this encounter Care Teams Heel Lining Paster Relationship Specialty Start Date End Date Samantha Escalante APRN [address] [place], [place] [address] PCP - General Family Medicine 10/06/17 documented as of this encounter
--- OUTSIDE RECORDS SUMMARY | 2024-03-23 00:41 | XMS_ITS | Encounter Summary ---
Author Organization [facility] Address [address] [place] [address] Care Team Providers Care Clinical Lab Scientist Name Role Phone Rajat Roca MD Primary Care Provider [phone] Samantha Escalante NP Primary Care Provider [phone] Encounter Details Date Type Department Care Team (Late st Contact Info) Description 01/05/2022 Lab Requisition [facility] Pathology & Laboratory Medicine - [facility] [address] [place] [address] Ming Dhillon Jr., MD [address] [place] [phone] Encounter for other general examination Social [...] explore management options, if applicable. 01/17/2022 22:15 [facility] Final Diagnosis A. SOFT TISSUE OF KNEE, RIGHT, LIPOMA, EXCISION: - Lipoma with focal fat necrosis and reactive changes. 01/17/2022 22:15 [facility] Attestation By the signature below, the attending physician certifies that they have 1) personally conducted a gross and/or microscopic examination of the described specimen(s), and/or personally interpreted the results of laboratory testing of the described specimen(s), and 2) personally rendered or confirmed the above diagnosis. 01/17/2022 22:15 [facility] at 2215 Clinical History Fatty tissue right knee; lipoma/mass right knee 01/17/2022 22:15 [facility] Gross Description A. Received [...] A1-A3. MIKI WHITFIELD(ASCP) 01/06/2022 7:41 01/17/2022 22:15 [facility] Performing Lab [facility] 01/17/2022 22:15 [facility] Scanned Images 01/17/2022 22:15 [facility] Tissue SOFT TISSUE / Unknown 01/05/2022 11:36 EDT 01/05/2022 17:00 EDT us Ming Dhillon Jr., MD PATHOLOGY ORDER CHAYITO Final Result [facility] [address] [place] [address] documented in this encounter Visit Diagnoses Diagnosis Encounter for other general examination documented in this encounter Care Teams Clinical Lab Scientist Relationship Specialty Start Date End Date Rajat Roca MD [address] [place] [address] PCP - General 04/20/16 01/06/22 Samantha Escalante NP [address] [place] [address] PCP - General 01/07/22 documented as of this encounter
--- OUTSIDE RECORDS SUMMARY | 2024-03-23 00:41 | XMS_ITS | Encounter Summary ---
Author Organization [facility] [place] [address] Care Team Providers Care Production Control Supervisor Name Role Phone Samantha Escalante APRN Primary Care Provider Encounter Details Date Type Department Care Team (Late st Contact Info) Description 04/09/2021 4:30 PM EST Ancillary Procedure Radiology Library at [facility] [place] [phone] Samantha Escalante APRN [address] [place], [place] [id number] Social History Tobacco Use Types Packs/Day Years [...] MR Spine (04/09/2021 4:29 PM EST) Narrative [facility] - 04/09/2021 4:29 PM EST This exam is auto-finalizing. It's purpose is for storage only. Samantha Escalante APRN IMG FILM LIBRARY OR DERABLES [place], [place] documented in this encounter Visit Diagnoses Not on filedocumented in this encounter Care Teams Production Control Supervisor Relationship Specialty Start Date End Date Samantha Escalante APRN [address] [place] [address] PCP - General Family Medicine 10/06/17 documented as of this encounter
--- OUTSIDE RECORDS SUMMARY | 2024-03-23 00:41 | XMS_ITS | Encounter Summary ---
Author Organization [facility] Address [address] [place] [address] Care Team Providers Care Sales Merchandiser Name Role Phone ElaineSamantha worthington DELIA Primary Care Provider [phone] Encounter Details Date Type Department Care Team (Late st Contact Info) Description 02/17/2022 Lab Requisition [facility] Pathology & Laboratory Medicine - [facility] [address] [place] [address] Geovany Ibrahim MD [address] [place] [address] [place] [address] Encounter for other general examination Social History [...] explore management options, if applicable. 02/22/2022 10:11 [facility] Final Diagnosis A. DUODENUM, [...] of hyperplastic polyps, 12 fragments. 02/22/2022 10:11 [facility] Diagnosis Comment H pylori (Rabbit Monoclonal (SP48), [place]): Performed on blacks A and B, positive at both sites. NOTE: IHC testing and interpretation was performed by [facility] laboratory. One or more of the [...] reagents performance characteristics have been determined by [facility] laboratory. This laboratory is certified under the Clinical Laboratory Improvement Amendment of 1988 (CLIA-88) as qualified to perform high complexity clinical laboratory testing. 02/22/2022 10:11 [facility] Attestation There was significan t resident/fellow involvement in the diagnostic evaluation of this case. By the signature below, the attending physician certifies that they have personally conducted a gross and/or microscopic examination of the described specimens and rendered or confirmed the above diagnosis. 02/22/2022 10:11 [facility] at 1011 Clinical History Anemia, h/o Alford's esophagus, h/o colon polyps 02/22/2022 10:11 [facility] Gross Description A. Received [...] G1-G3. MIKI LANG(ASCP) 02/17/2022 19:27 02/22/2022 10:11 [facility] Resident/Fell ow: Bertin Peña DO 02/22/2022 10:11 EDT [facility] Performing Lab [facility] 02/22/2022 10:11 EDT [facility] Scanned Images 02/22/2022 10:11 EDT [facility] Tissue SPECIMEN FROM RECTUM / [...] Unknown 02/17/2022 8:28 EDT 02/17/2022 17:20 EDT us Geovany Ibrahim MD PATHOLOGY ORDERABLES Fin al Result [facility] [address] [place] [address] documented in this encounter Visit Diagnoses Diagnosis Encounter for other general examination documented in this encounter Care Teams Sales Merchandiser Relationship Specialty Start Date End Date Samantha Escalante NP [address] [place] [phone] PCP - General 01/07/22 documented as of this encounter
--- OUTSIDE RECORDS SUMMARY | 2024-03-23 00:41 | XMS_ITS | Encounter Summary ---
Author Organization [facility] [place] [address] Care Team Providers Care Hi Teacher Name Role Phone Samantha Escalante APRN Primary Care Provider [phone] Encounter Details Date Type Department Care Team (Late st Contact Info) Description 01/26/2022 Ancillary Procedure Radiology at [facility] [address] [place] [address] Jacinto Apodaca MD [address] [facility] [place] [address] Social History Tobacco Use Types Packs/Day Years [...] is for storage only. Jacinto Apodaca MD [facility] FILM LIBRARY ORD ERABLES [place], [place] documented in this encounter Visit Diagnoses Not on filedocumented in this encounter Care Teams Hi Teacher Relationship Specialty Start Date End Date Samantha Escalante APRN [address] [place] [address] PCP - General Family Medicine 10/06/17 documented as of this encounter
--- OUTSIDE RECORDS SUMMARY | 2024-03-23 00:41 | XMS_ITS | Encounter Summary ---
Author Organization [facility] [place] [address] Care Team Providers Care Bonderizer Operator Name Role Phone Samantha Escalante APRN [...] on filedocumented in this encounter Care Teams Bonderizer Operator Relationship Specialty Start Date End Date Samantha Escalante APRN [address] [place] [address] PCP - General Family Medicine 10/06/17 documented as of this encounter
--- OUTSIDE RECORDS SUMMARY | 2024-03-23 00:41 | XMS_ITS | Encounter Summary ---
Author Organization [facility] [place] [address] Care Team Providers Care Fine Artist Name Role Phone Samantha Escalante APRN Primary Care Provider [phone] Reason for Visit * Reason Comments Skin Lesion Encounter Details Date Type Department Care Team (Late st Contact Info) Description 09/15/2020 11:00 AM EDT Office Visit Dermatology at [address] [address] Frieda Bermudez MD [facility] DR [address] [address] Seborrheic keratosis, inflamed; Inflamed skin tag Social [...] by: Frieda Bermudez MD Resident in Dermatology [facility] Cosigned by: Piero Marc MD Department of Dermatology [facility] * Piero Marc III, MD [...] skin documented in this encounter Care Teams Fine Artist Relationship Specialty Start Date End Date Samantha Escalante APRN [address] [place] [address] PCP - General Family Medicine 10/06/17 documented as of this encounter
--- OUTSIDE RECORDS SUMMARY | 2024-03-23 00:41 | XMS_ITS | Clinical Summary ---
Author Organization [facility] Address [address] [place] [address] Care Team Providers Care Composition Siding Worker Name Role Phone Kikearely Samantha DELIA Primary Care Provider [phone] Social History Tobacco Use Types Packs/Day Years [...] Last Done Comments Hepatitis C Screen 1955 Fall Risk Screening 2021 COVID-19 Vaccine ( season) 2024 RSV Immunization ( o r 60+ Years) (1 - 1-dose 75+ series) 12/04/2031 Insurance [facility] MEDICARE Care Teams Composition Siding Worker Relationship Specialty Start Date End Date Samantha Escalante NP [address] [place] [address] [address] [place] [address] [facility] - General 01/07/22
--- OUTSIDE RECORDS SUMMARY | 2024-03-23 00:41 | XMS_ITS | Encounter Summary ---
[place] [address] Care Team Providers Care Research/Program Director Name Role Phone Samantha Escalante APRN Primary Care Provider Encounter Details Date Type Department Care Team (Late st Contact Info) Description 05/24/2022 Telephone Gynecology [place] [phone] Gerard Urena Social History Tobacco Use Types [...] on filedocumented in this encounter Care Teams Research/Program Director Relationship Specialty Start Date End Date Samantha Escalante APRN [address] [place] [address] PCP - General Family Medicine 10/06/17 documented as of this encounter
--- OUTSIDE RECORDS SUMMARY | 2024-03-23 00:41 | XMS_ITS | Encounter Summary ---
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, lumbar region SPONDYLOSIS DDD Procedures PRO LAMINEC/FACETECT/FORAMIN, LUMBAR 1 SEG LAMINECTOMY, FACETECTOMY & FORAMINOTOMY,LUMBAR, ONE LEVEL (WRVU 15.37) Referral ID Status Reason Start Date Expiration Date Visits Re quested Visits Authorized [id number] 1 1 Encounter Details Date Type Department Care Team (Late st Contact Info) Description 08/05/2021 2:21 PM EDT - 08/05/2021 4:36 PM EDT Surgery Operating Room [address] [place] [address] Jacinto [place] [address] LAMINECTOMY, FACETECTOMY & FORAMINOTOMY,LUMBAR, ONE LEVEL (WRVU [...] six weeks after surgery with a Physician???s Glass Washer And Carrier at the surgeon???s office. You will have [...] when to stop taking it. Only take nigh-dix-wgembwq or prescription medicine for pain, discomfort or [...] you have any questions, please call [facility] Neurology and Neurosurgery at [phone], during business hours of Tuesday through Tuesday from 8:00 a.m. until 4:00 p.m. In case of emergency during non-business hours, please call the same main number and follow the prompts to page the neurosurgeon communications tech. SMOKING CESSATION INFORMATION: [place] QUITLINE: [place] QUITLINE: www.quitnet.com If you smoke, stop now! Smoking may impede healing. MAKE SURE YOU: Understand these instructions. Will seek medical care if you are feeling poor, or get worse. Will call the surgeon???s office with any questions or concerns at : [phone] Nursing information only: Original document to medical [...] after complain of itching. Benedryl given by JOHN Wu. Pepcid given IVP by NUBIA Davis. [...] Apodaca MD - 08/05/2021 3:03 PM EDT [facility] [place] [address] Patient Name: Lynda Pedersen : [id number] MR#: [id number] Case Date: 08/05/2021 Case Scheduled Time: 1421 Surgeon: Surgeon(s) and Role: * Jacinto Apodaca MD - Primary * Franki Mills PA - Physician Glass Washer And Carrier Preoperative diagnosis: SPONDYLOSIS DDD Postoperative diagnosis: SPONDYLOSIS DDD Actual procedure: Right L5-S1 hemilaminectomy, medial facetectomy, lateral recess decompression, [id number], microsurgical discectomy. Use of the high- powered [...] the duration of the operative session. The merchandising assistant adequately prepped the operative site and [...] PM EDT Laminec/Facetect/Fo alissa, Lumbar 1 Seg (50649) 08/05/2021 2:41 PM EDT SPONDYLOSIS DDD documented [...] minute., Day of Surgery (Day of Procedure), Routine, Indication for (Active or Suspected): Prophylaxis New Bag 08/05/2021 1:37 PM EDT 1,000 [...] minute., Day of Surgery (Day of Procedure), Routine, Indication for (Active or Suspected): Prophylaxis 1337 (New Bag - Prov ider: Marycarmen Deleon RN)1437 (Due: Stopped - Provider: Marycarmen Deleon RN) Continuous Medication Order 08/03/2021 08/04/202108/05/2021 lactated ringers infusion (CANCELED) 1,000 mL, at 50 mL/hr, Intravenous, CONTINUOUS, Starting on Tue08/05/21 at 1330, Until Tue08/05/21 at 1845, Day of Surgery (Day of Procedure) 1441 (New Bag - Prov ider: Ming Bull, JOHN) PRN Medication Order 08/03/2021 08/04/2021 08/05/2021 BUpivacaine [...] 1435, Until Tue08/05/21 at 2056, Ming Bull (john): cabinet override 1445 (Due) documented in this encounter Care Teams Metal Milling Machine Operator Relationship Specialty Start Date End Date Samantha Escalante APRN [address] [place] [address] PCP - General Family Medicine 10/06/17 documented as of this encounter
--- OUTSIDE RECORDS SUMMARY | 2024-03-23 00:41 | XMS_ITS | Encounter Summary ---
Author Organization [facility] [place] [address] Care Team Providers Care Cyber Incident Analyst Name Role Phone Samantha Escalante APRN Primary Care Provider Reason for Visit * Consultation (Routine) - Closed Specialty Diagnoses / Procedures Referred By Wai del castillo Referred To Contact Dermatology Diagnoses Disorder of the skin and subcutaneous tissue, unspecified Samantha Escalante APRN [address] [place] [address] [facility] Dermatology [address] [place] [address] Referral ID Status Reason Start Date Expiration Date V isits Requested Visits Authorized [id number] Closed Consult, Test & Treat Connection Center PCP Updated and/or Approved 03/13/2020 03/13/2021 6 6 Encounter Details Date Type Department Care Team (Late st Contact Info) Description 04/04/2020 10:00 AM EST Office Visit Dermatology at [address] [place] [address] Roc Nugent MD [facility] [address] [place] [address] Dermatofibroma; Seborrheic keratoses; Seborrheic keratoses, [...] ??? gemfibrozil (LOPID) 600 mg tablet ??? [place]-3 Fatty Acids-Fish Oil (FISH OIL OMEGA 3-6-9) [...] accuracy of the documentation in this encounter. oRc Nugent MD Reviewed and signed by Roc Nugent MD Resident in Dermatology [facility] Patient seen in conjunction with staff museum assistant: Piero Marc MD Department of Dermatology [facility] * Piero Marc III, MD - 04/04/2020 10:00 AM EST I was the supervising physician working with dermatology resident Dr. Nugent in the dermatology clinic during this patient visit. The level of resident supervision for this patient visit was indirectsupervision with direct supervision immediately available. (definition: [facility] GME Policy Statement on Graduate Medical Education, Supervision of Graduate Medical Trainees) I was immediately available to Dr. Nugent for questions and discussion regarding this visit. I have reviewed his encounter note details and level of service. PIERO MACR III, MD Staff Physician documented [...] Surgical Pathology Report (04/04/2020 10:57 AM EST) Final Diagnosis [id number] ? Location: [facility] The signing pathologist has (i) examined the relevant preparation(s) for the specimen(s) and (ii) rendered or confirmed the diagnosis(es). . ?Surgical Pathology DIAGNOSIS Vertex scalp, skin shave biopsy ONLY: - ??Verrucous keratosis, inflamed Electronically signed by: ??Wu YA, PhD, Hitesh Verified: ??04/07/2020 ?Dermatopatholo gist Performed at: ??-[facility] Dept. of Pathology, [place], [place] SPECIMEN(S) SUBMITTED A - vertex scalp, skin shave biopsy ONLY (1) CLINICAL INFORMATION 1 cm mammillated plaque; filiform wart vs SK SPECIMEN PROCESSING A - Labeled/Fixative : Patient demographics, formalin. Quantity/Size: ??Single, 0.9 x 0.7 x 0.3 cm. Tissue Description: Shave of a pink-white verrucous skin papule. Sections/Process ing: Inked, quadrisected and entirely submitted in 1 cassette labeled A1. ??lyric 04/07/2020 9:57 AM EST [facility] SPECIMEN FROM SKIN / Unknown 04/04/2020 10:57 AM EST 04/04/2020 10:57 AM EST Roc Nugent MD PATHOLOGY/CYTOLOGY O RDERABLES [facility] [place] [address] * Specimen to Pathology (04/04/2020 10:57 AM EST) AP Specimen 04/04/2020 10:5 7 AM EST 04/04/2020 10:57 AM EST Narrative [facility] - 04/04/2020 10:57 AM EST Specimen requisition ordered. ??Separate Pathology report to follow Piero Marc III, MD PATHOLOGY/CYTOL OGY ORDERABLES [facility] [place] [address] documented in this encounter Visit Diagnoses Diagnosis Dermatofibroma Benign neoplasm of skin, site unspecified Seborrheic keratoses Seborrheic keratoses, inflamed Neoplasm of uncertain behavior of skin documented in this encounter Care Teams Cyber Incident Analyst Relationship Specialty Start Date End Date Samantha Escalante APRN [address] [place] [address] [address] [place] [address] PCP - General Family Medicine 10/06/17 documented as of this encounter
--- OUTSIDE RECORDS SUMMARY | 2024-03-23 00:41 | XMS_ITS | Encounter Summary ---
Author Organization [facility] Address [address] [place] [address] Care Team Providers Care Stock Pitcher Name Role Phone Rajat Roca MD Primary Care Provider [phone] Encounter Details Date Type Department Care Team (Latest Contact Info) Description 11/21/2017 19:26 EDT - 11/21/2017 23:59 EDT Hospital Encounter [address] [address] Unknown, Provider, MD Discharge Disposition: Home or Self Care Social [...] on filedocumented in this encounter Care Teams Stock Pitcher Relationship Specialty Start Date End Date Rajat Roca MD [address] [place] [address] [place] [address] PCP - General 04/20/16 01/06/22 documented as of this encounter
--- OUTSIDE RECORDS SUMMARY | 2024-03-23 00:41 | XMS_ITS | Encounter Summary ---
Author Organization [facility] [place] [address] Care Team Providers Care On Site Services Specialist Name Role Phone Samantha Escalante APRN Primary Care Provider [phone] Reason for Visit * Reason Comments Follow-up Urgent visit * Consultation (Urgent) - Closed Specialty Diagnoses / Procedures Referred By Contyusuf t Referred To Contact Gynecology Oncology Diagnoses Adnexal mass Silvana Moon MD [facility] OBSTETRICS & [place] [address] Tonia Eli MD [facility] [place] [address] Referral ID Status Reason Start Date Expiration Date V isits Requested Visits Authorized [id number] Closed Consult, Test & Treat 05/24/2022 05/24/2023 1 1 Encounter Details Date Type Department Care Team (Late st Contact Info) Description 06/11/2022 10:00 AM EST Office Visit Gynecology [place] [address] Tonia Eli MD [facility] [place] [address] Pelvic mass in female (Primary Dx); Carcinoma [...] 10:00 AM EST Division [place] [address] Gynecologic Oncology Clinic New Patient Visit Reason for visit: Complex adnexal cyst, referred by Silvana Moon MD [facility] DR OBSTETRICS & [place] [address] Problem List Patient Active Problem List Diagnosis [...] an endometrioma. She was seen by her healthcare educator Dr. Plascencia ([facility]) who ordered tumor markers: Ca 125 7.2, AFP 6.4, bHCG 6.2. I saw Estephanie for a visit in the general creative services designer clinic and subsequently referred her here for [...] Social history: She is . Lives in [place], [place]. 83yo woman who is renting a [...] Other reaction(s): Rash, itching all over ??? Inmtxfr-Gpv-Fri Reductase Inhibitors Other reaction(s): MUSCLE ACHES ??? Codeine Phosphate CIS - Nausea/Vomiting ??? Penicillins CIS - Rash [facility] Penicillin Allergy Risk Assessment 06/11/2022: Low risk penicillin allergy. OK to receive full dose of cefazolin, cefuroxime, or any 3rd or 4th+ generation cephalosporin. PAT Clinic UTILITY OPERATOR YARN to place Allergy referral for formal penicillin [...] Oncology clinic today. I was present as healthcare educator for the sensitive parts of her examination. DARIANA Leiva documented in this encounter Plan of Treatment Not on file documented as of this encounter Results * Carbohydrate Antigen 19-9 (06/11/2022 12:40 PM EST) CA 19-9 7.4 <=35.0 u/ml [facility] Comment: This result was generated using a Jose E La immunoassay. ??Results obtained from other methods or manufacturers cannot be used interchangeably with this method. Blood 06/11/2022 12:4 0 PM EST 06/11/2022 12:54 PM EST Narrative Resulting Agency Comment Spec In Lab Tonia Eli MD CHEMISTRY ORDERABL ES [facility] [place] [address] * CEA (06/11/2022 12:40 PM EST) Carcinoembryonic Antigen 0.7 <=3.8 ng/mL [facility] Comment: Reference range: ??(20-69 years): [...] Lab Tonia Eli MD CHEMISTRY ORDERABL ES [facility] [address] * (ABNORMAL) Comprehensive metabolic panel (non-fasting) (06/11/2022 12:40 PM EST) Glucose 90 65 - 199 mg/dL [facility] Comment:Diabetes: >=200 mg/d L plus symptoms Blood Urea Nitrogen 11 8 - 18 mg/dL [facility] Creatinine 0.75 0.70 - 1.20 mg/dL [facility] Sodium 137 135 - 145 mmol/L [facility] Potassium 4.7 3.5 - 5.0 mmol/L [facility] Comment: Please note: ??Patients with WBC >100,000 may have falsely elevated Potassium levels. ??For accurate Potassium quantification in these patients send serum separator tube (gold top) for subsequent determinations. ??Contact the Clinical Chemistry Laboratory if there are any questions. Chloride 100 98 - 107 mmol/L [facility] Carbon Dioxide 26 22 - 31 mmol/L [facility] Anion Gap 11 5 - 15 mmol/L [facility] Calcium 10.3 8.5 - 10.5 mg/dL [facility] Protein, Total 7.8 6.1 - 8.0 g/dL [facility] Albumin 4.8 3.2 - 5.2 g/dL [facility] Aspartate Aminotransferase 38(H) 0 - 30 unit/L [facility] Alanine Aminotransferase 53(H) 0 - 30 unit/L [facility] Alkaline Phosphatase 54 35 - 105 unit/L [facility] Bilirubin, Total 0.3 0.2 - 1.3 mg/dL [facility] Est Glomerular Filtration Rate 88 >=60 mL/min/1. 73 m?? 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
--- OUTSIDE RECORDS SUMMARY | 2024-03-23 00:41 | XMS_ITS | Encounter Summary ---
Author Organization [facility] [place] [address] Care Team Providers Care Chiller Technician Name Role Phone Samantha Escalante APRN Primary Care Provider [phone] Reason for Visit * Reason Comments Follow-up Encounter Details Date Type Department Care Team (Late st Contact Info) Description 10/02/2021 4:45 PM EDT Office Visit Dermatology at [address] [address] Willard Parra MD [address] [facility] [place] [address] Encounter for post surgical wound check Social [...] check documented in this encounter Care Teams Chiller Technician Relationship Specialty Start Date End Date Samantha Escalante APRN [address] [facility] 1 [place] [address] PCP - General Family Medicine 10/06/17 documented as of this encounter
--- OUTSIDE RECORDS SUMMARY | 2024-03-23 00:41 | XMS_ITS | Encounter Summary ---
Author Organization [facility] [place] [address] Care Team Providers Care Forest Products Gatherer Name Role Phone Samantha Escalante CHACE Primary Care Provider Encounter Details Date Type Department Care Team (Late st Contact Info) Description 06/11/2022 11:30 AM EST Clinical [place] [address] Social History Tobacco Use Types Packs/Day Years [...] 3rd or 4th+ generation cephalosporin. PAT Clinic NUCLEAR OPERATOR to place Allergy referral for formal penicillin allergy evaluation. Patient open to a phone consult from the allergy clinic. PLAN: Testing: Blood work + T&S Procedure date: 07/05 Alcira documented in this encounter Plan of Treatment Not on file documented as of this encounter Visit Diagnoses Not on filedocumented in this encounter Care Teams Forest Products Gatherer Relationship Specialty Start Date End Date Samantha Escalante APRN [address] [place] [address] [address] [facility] 1 [place] [address] PCP - General Family Medicine 10/06/17 documented as of this encounter
--- OUTSIDE RECORDS SUMMARY | 2024-03-23 00:41 | XMS_ITS | Encounter Summary ---
Author Organization [facility] [place] [address] Care Team Providers Care Construction Ironworker Name Role Phone Samantha Escalante APRN Primary Care Provider Encounter Details Date Type Department Care Team (Late st Contact Info) Description 02/05/2021 Telephone [place] [address] Bessie Dorman Social History Tobacco Use Types [...] on filedocumented in this encounter Care Teams Construction Ironworker Relationship Specialty Start Date End Date Samantha Escalante APRN [facility] [address] [place] [address] PCP - General Family Medicine 10/06/17 documented as of this encounter
--- OUTSIDE RECORDS SUMMARY | 2024-03-23 00:41 | XMS_ITS | Encounter Summary ---
[place] [address] Care Team Providers Care Cherry Sorter Name Role Phone Samantha Escalante APRN Primary Care Provider Reason for Visit * Diagnostic Test (Routine) - Closed Specialty Diagnoses / Procedures Referred By Wai t Referred To Contact Radiology Diagnoses Coronary artery disease, angina presence unspecified, unspecified vessel or lesion type, unspecified whether [place] or transplanted heart Procedures NM Pharmacologic Stress and Rest Myocardial Perfusion Samantha Escalante APRN [address] [place] [address] [place] [address] Referral ID Status Reason Start Date Expiration Date V isits Requested Visits Authorized [id number] Closed Specialty Service Requested 12/27/2019 06/23/2020 1 1 Encounter Details Date Type Department Care Team (Late st Contact Info) Description 04/01/2020 7:38 AM EST Hospital Encounter [place] [address] Samantha Escalante APRN [address] [place], [place] [address] Discharge Disposition: Home Social History Tobacco Use [...] gemfibrozil (LOPID) 600 mg tablet 10/28/2009 10/13/2020 [place]-3 Fatty Acids-Fish Oil (FISH OIL OMEGA 3-6-9) [...] unspecified vessel or lesion type, unspecified whether [place] or transplanted heart documented in this encounter [...] on filedocumented in this encounter Care Teams Cherry Sorter Relationship Specialty Start Date End Date Samantha Escalante APRN [address] [place] [address] PCP - General Family Medicine 10/06/17 documented as of this encounter
--- OUTSIDE RECORDS SUMMARY | 2024-03-23 00:41 | XMS_ITS | Encounter Summary ---
Author Organization [facility] Address [address] [place] [address] Care Team Providers Care Wireworker Supervisor Name Role Phone Rajat Roca MD Primary Care Provider [phone] Encounter Details Date Type Department Care Team (Late st Contact Info) Description 11/21/2017 Results Only [facility] [phone] Juwan Zapata MD [address] [place] [address] [address] [place], [place] [address] Social History Tobacco Use Types Packs/Day Years [...] ? GALINA VELIZ ? Accession #: ? [id number] ? : ? 1955 (Age: 61) ??F ? Collect Date: ? 11/21/2017 ? Location: ? [facility] ? Receive Date: ? 11/21/2017 ? Provider: JUWAN ZAPATA MD Copy to: MAURICE NEGRON AIRLINE SECURITY REPRESENTATIVE ? Final Pathologic Diagnosis: A. STOMACH, ANTRUM, BIOPSY: - Antral mucosa with mild chronic gastritis and focal activity. - Associated reactive gastropathy. - See comment. B. GASTROESOPHAGEAL JUNCTION, BIOPSY: - Columnar mucosa with focal intestinal metaplasia, negative for dysplasia. - Adjoining squamous mucosa with features of reflux esophagitis. Comment: Deeper levels examined. ANTIBODY(CLONE)(BLO CK):RESULT H. pylori (Rabbit Monoclonal (SP48), [place]) (A1): Negative NOTE: ??One or more of [...] performance characteristics have been determined by [facility] and/or by the referring laboratory. ??The [...] are submitted entirely in B1. MIKI Wolfe ([facility]) 11/21/2017 3:[address] [facility] 11/21/2017 15:2 8 EDT 11/21/2017 15:28 EDT us Juwan Zapata MD PATHOLOGY ORDERABLES Fin al Result [facility] [address] [place] [address] documented in this encounter Visit Diagnoses Not on filedocumented in this encounter Care Teams Wireworker Supervisor Relationship Specialty Start Date End Date Rajat Roca MD [address] [place] [address] PCP - General 04/20/16 01/06/22 documented as of this encounter
--- OUTSIDE RECORDS SUMMARY | 2024-03-23 00:41 | XMS_ITS | Encounter Summary ---
Author Organization [facility] [place] [address] Care Team Providers Care Tucking Machine Operator Name Role Phone Samantha Escalante APRN Primary Care Provider [phone] Encounter Details Date Type Department Care Team (Late st Contact Info) Description 11/18/2020 Ancillary Procedure Radiology Library at [place] [place] [address] Samantha Escalante APRN [address] [place] [address] Social History Tobacco Use Types [...] Ultrasound Study (11/18/2020 12:00 AM EDT) Narrative [facility] - 11/19/2020 1:47 AM EDT This exam is auto-finalizing. It's purpose is for storage only. Samantha Escalante APRN IMG FILM LIBRARY OR DERABLES [place], [place] documented in this encounter Visit Diagnoses Not on filedocumented in this encounter Care Teams Tucking Machine Operator Relationship Specialty Start Date End Date Samantha Escalante APRN [address] [place] [address] PCP - General Family Medicine 10/06/17 documented as of this encounter
--- OUTSIDE RECORDS SUMMARY | 2024-03-23 00:41 | XMS_ITS | Encounter Summary ---
Author Organization [facility] Address [address] [place] [address] Care Team Providers Care Speech Pathology Teacher Name Role Phone Rajat Roca MD Primary Care Provider [phone] Samantha Escalante NP Primary Care Provider [phone] Encounter Details Date Type Department Care Team (Late st Contact Info) Description 03/28/[address] [facility] Pathology & Laboratory Medicine - [facility] [address] [place] [address] Geovany Ibrahim MD [address] [place] [address] [address] [place], [place] [address] Encounter for other general examination Social History [...] examination documented in this encounter Care Teams Speech Pathology Teacher Relationship Specialty Start Date End Date Rajat Roca MD [address] [facility] [place] [address] PCP - General 04/20/16 01/06/22 Samantha Escalante NP [address] [place] [address] [address] [place] [address] PCP - General 01/07/22 documented as of this encounter
--- OUTSIDE RECORDS SUMMARY | 2024-03-23 00:41 | XMS_ITS | Referral Summary ---
Author Organization [facility] Address [address] [place] [address] Care Team Providers Care Security Sme Name Role Phone ElaineSamantha worthington DELIA Primary Care Provider [phone] Social History Tobacco Use Types Packs/Day Years [...] file Plan of Treatment Not on file Insurance [facility] MEDICARE Care Teams Security Sme Relationship Specialty Start Date End Date Samantha Escalante NP [address] [place] [address] [address] [place] [address] PCP - General 01/07/22
--- OUTSIDE RECORDS SUMMARY | 2024-03-23 00:41 | XMS_ITS | Encounter Summary ---
Author Organization [facility] [place] [address] Care Team Providers Care Jewelry Technician Name Role Phone Samantha Escalante APRN Primary Care Provider [phone] Encounter Details Date Type Department Care Team (Late st Contact Info) Description 10/30/2008 Orders Only [place] [address] Jordan Dixon MD [facility] [place] [address] Social History Tobacco Use Types Packs/Day Years Used Date Smoking Tobacco: Never Assessed [facility] Inpatient Questions Answer Date Recorded Does Anyone [...] 9:14 AM EDT) Surgical Pathology Report [id number] ? Location: [facility] The signing pathologist has (i) examined the [...] on filedocumented in this encounter Care Teams Jewelry Technician Relationship Specialty Start Date End Date Samantha Escalante APRN [address] [place] [address] PCP - General Family Medicine 10/06/17 documented as of this encounter
--- OUTSIDE RECORDS SUMMARY | 2024-03-23 00:41 | XMS_ITS | Encounter Summary ---
Author Organization [facility] Address [address] [place] [address] Care Team Providers Care Nurse Chemical Dependency Name Role Phone Jacqui Anaya MD Primary Care Provider [phone] Encounter Details Date Type Department Care Team (Latest Contact Info) Description 04/14/2016 7:09 EST - 04/14/2016 23:59 EST Hospital Encounter [address] [address] Unknown, Provider, MD Discharge Disposition: Home or [...] Code Departure Means Destination Home or Self Nursing Home documented in this encounter Plan of Treatment Not on file documented as of this encounter Visit Diagnoses Not on filedocumented in this encounter Care Teams Nurse Chemical Dependency Relationship Specialty Start Date End Date Jacqui Anaya MD [address] [place] [address] PCP - General 04/13/11 04/19/16 documented as of this encounter
--- OUTSIDE RECORDS SUMMARY | 2024-03-23 00:41 | XMS_ITS | Encounter Summary ---
Author Organization [facility] [place] [address] Care Team Providers Care Air Lift Operator Name Role Phone Samantha Escalante APRN Primary Care Provider Encounter Details Date Type Department Care Team (Late st Contact Info) Description 04/01/2020 7:38 AM EST Hospital Encounter [place] [address] Samantha Escalante APRN [address] [place], [place] [address] Coronary artery disease, angina presence unspecified, unspecified vessel or lesion type, unspecified whether [place] or transplanted heart Discharge Disposition: Home Social [...] gemfibrozil (LOPID) 600 mg tablet 10/28/2009 10/13/2020 [place]-3 Fatty Acids-Fish Oil (FISH OIL OMEGA 3-6-9) 300-1,000 mg CpDR Take by mouth daily. 10/29/19 10 07/21/2021 documented as of this encounter Plan of Treatment Not on file documented as of this encounter Procedures Procedure Name Priority Date/Time Associated Diagnosis Comments NUCLEAR PHARMACOLOGIC STRESS CARDIOLOGY Routine 04/01/2020 9:16 AM EST Coronary artery disease, angina presence unspecified, unspecified vessel or lesion type, unspecified whether [place] or transplanted heart STRESS TEST SCAN 04/01/2020 [...] unspecified vessel or lesion type, unspecified whether [place] or transplanted heart documented in this encounter Care Teams Air Lift Operator Relationship Specialty Start Date End Date Samantha Escalante APRN [address] [place], [place] [address]Y [facility] 1 [place] [address] PCP - General Family Medicine 10/06/17 documented as of this encounter
--- OUTSIDE RECORDS SUMMARY | 2024-03-23 00:41 | XMS_ITS | Encounter Summary ---
Author [place] [address] Care Team Providers Care Application Assistant Name Role Phone Samantha Escalante APRN Primary Care Provider Encounter Details Date Type Department Care Team (Late st Contact Info) Description 05/21/2022 Telephone Obstetrics [place] [phone] Liz Lind Social History Tobacco Use Types [...] filedocumented in this encounter Care Teams Application Assistant Relationship Specialty Start Date End Date Samantha Escalante APRN [address] [place] [address] PCP - General Family Medicine 10/06/17 documented as of this encounter
--- OUTSIDE RECORDS SUMMARY | 2024-03-23 00:41 | XMS_ITS | Encounter Summary ---
Author Organization Formerly [facility] [place] [address] Care Team Providers Care Coffee Shop Manager Name Role Phone Samantha Escalante APRN [...] Expiration Date Visits Re quested Visits Authorized [id number] 1 1 Encounter Details Date Type Department Care Team (Latest Contact Info) Description 08/05/2021 12:46 PM EDT - 08/05/2021 6:56 PM EDT Hospital Encounter Post Acute Care Unit at [facility] Karla [address] [place] [address] Jacinto Apodaca MD [address] [place] [address] Lumbar spondylosis Discharge Disposition: Home Social History [...] six weeks after surgery with a Physician???s Odd Job Worker at the surgeon???s office. You will have [...] when to stop taking it. Only take msms-zzj-xgitdeu or prescription medicine for pain, discomfort or [...] If you have any questions, please call [facility] Neurology and Neurosurgery at [phone], during business hours of Tuesday through Tuesday from 8:00 a.m. until 4:00 p.m. In case of emergency during non-business hours, please call the same main number and follow the prompts to page the neurosurgeon digital solutions architect. SMOKING CESSATION INFORMATION: [place] QUITLINE: [place] QUITLINE: www.quitnet.com If you smoke, stop now! Smoking may impede healing. MAKE SURE YOU: Understand these instructions. Will seek medical care if you are feeling poor, or get worse. Will call the surgeon???s office with any questions or concerns at : [phone] Nursing information only: Original document to medical [...] Apodaca MD - 08/05/2021 3:03 PM EDT [facility] [place] [address] Patient Name: Lynda Pedersen : [id number] MR#: [id number] Case Date: 08/05/2021 Case Scheduled Time: 1421 Surgeon: Surgeon(s) and Role: * Jacinto Apodaca MD - Primary * Franki Mills PA - Physician Odd Job Worker Preoperative diagnosis: SPONDYLOSIS DDD Postoperative diagnosis: SPONDYLOSIS DDD Actual procedure: Right L5-S1 hemilaminectomy, medial facetectomy, lateral recess decompression, [id number], microsurgical discectomy. Use of the high- powered [...] the duration of the operative session. The molding line assistant adequately prepped the operative site and [...] PM EDT Laminec/Facetect/Fo alissa, Lumbar 1 Seg (86929) 08/05/2021 2:41 PM EDT SPONDYLOSIS DDD documented [...] 08/05/2021 1:37 PM EDT 1,000 mg 250 mL/ hr documented in this encounter Active and Recently [...] (Due) documented in this encounter Care Teams Coffee Shop Manager Relationship Specialty Start Date End Date Samantha Escalante APRN [address] [place] [address] PCP - General Family Medicine 10/06/17 documented as of this encounter
--- OUTSIDE RECORDS SUMMARY | 2024-03-23 00:41 | XMS_ITS | Encounter Summary ---
Author Organization [facility] Address [address] [place] [address] Care Team Providers Care Pharmacognosist Name Role Phone Rajat Roca MD Primary Care Provider [phone] Encounter Details Date Type Department Care Team (Late st Contact Info) Description 09/21/2017 Results Only [facility] [phone] Samantha Negron, DELIA [address] [place] [address] Social History Tobacco Use Types Packs/Day Years [...] ? GALINA VELIZ ? Accession #: ? [id number] ? : ? 1955 (Age: 61) ??F ?Collect Date: ? 09/21/2017 ? Location: ? [facility] ? Receive Date: ? 09/23/2017 ? Provider: SAMANTHA NEGRON TYPECASTING MACHINE OPERATOR Copy to: ? Final Report SPECIMEN ADEQUACY ? Satisfactory for Evaluation - transformation zone component absent GENERAL CATEGORIZATION ? Negative for Intraepithelial Lesion or Malignancy INTERPRETATION ? Shift in asael present suggestive of bacterial vaginosis. Menstrual/Pregnanc y Status: ??Post Menopausal Specimen/Source: ??Pap Test, Vagina, ThinPrep Imaging System with manual evaluation Document reviewed and electronically signed by: ? ROMERO Guerra(ASCP) ? Report ??Date: 09/30/2017 12:37 HPV with Pap Test ? Date Ordered: ? 09/30/2017 ? Status: ?? Signed Out ?Date Complete: ? 10/04/2017 ? By: ??System Interface ? Date Reported: ? 10/04/2017 ? Interpretation RESULT: High risk HPV testing is only FDA approved and validated for cervical or endocervical samples at the [facility]. It is not validated for vaginal samples as the test performance characteristics have not been evaluated. Credit issued. Sample has been sent to [facility] for HPV testing. Comments Document reviewed and electronically signed by: ? System Interface ? Report date: 10/04/2017 By the signature above, the attending physician certifies that he/she has personally conducted a gross and/or microscopic examination of the described specimens and rendered or confirmed the above diagnosis. End of Report [facility] 09/21/2017 09/23/2017 Samantha Negron TYPECASTING MACHINE OPERATOR PATHOLOGY ORDERABLES Final Re sult [facility] [address] [place] [address] documented in this encounter Visit Diagnoses Not on filedocumented in this encounter Care Teams Pharmacognosist Relationship Specialty Start Date End Date Rajat Roca MD [address] [place] [address] PCP - General 04/20/16 01/06/22 documented as of this encounter
--- OUTSIDE RECORDS SUMMARY | 2024-03-23 00:41 | XMS_ITS | Encounter Summary ---
Author Organization [facility] [place] [address] Care Team Providers Care Plant Guide Name Role Phone Samantha Escalante APRN Primary Care Provider Encounter Details Date Type Department Care Team (Late st Contact Info) Description 06/04/2021 11:30 AM EST Office Visit Dermatology at [address] [phone] Willard Parra MD [address] [facility] [place] [address] Seborrheic keratosis, inflamed; Seborrheic keratoses Social History [...] skin checkup, and [facility] irritated seborrheic keratoses , [...] largest ones have resolved following treatment at [facility], all except 1. She has numerous small [...] keratoses documented in this encounter Care Teams Plant Guide Relationship Specialty Start Date End Date Samantha Escalante APRN [address] [place] [address] PCP - General Family Medicine 10/06/17 documented as of this encounter
--- OUTSIDE RECORDS SUMMARY | 2024-03-23 00:41 | XMS_ITS | Encounter Summary ---
Author Organization [facility] Address [address] [place] [address] Care Team Providers Care Registered Nurse First Assistant Name Role Phone Rajat Roca MD Primary Care Provider [phone] Samantha Escalante NP Primary Care Provider [phone] Encounter Details Date Type Department Care Team (Late st Contact Info) Description 03/28/2019 Lab Requisition [facility] Laboratory Medicine - [facility] [address] [place] [address] Geovany Ibrahim MD [address] [place] [address] [place], [place] [id number] Encounter for other general examination Social History [...] X3, BIOPSY: - Hyperplastic polyps. 03/30/2019 9:36 [facility] at 0936 Diagnosis Comment Immunoperoxidase stains were performed on this case to further characterize the lesion. ANTIBODY(CLONE)(BLOCK ):RESULT H pylori (Rabbit Monoclonal (SP48), [place]) (B-1): Negative NOTE: One or more of [...] performance characteristics have been determined by [facility] and/or by the referring laboratory. The positive [...] high complexity clinical laboratory testing. 03/30/2019 9:36 [facility] Clinical History History Alford's, history polyps. 03/30/2019 9:36 [facility] Attestation By the signature below, the attending physician certifies that they have personally conducted a gross and/or microscopic examination of the described specimens and rendered or confirmed the above diagnosis. 03/30/2019 9:36 [facility] at 0936 Gross Description A. [...] Entirely submitted in E 1 and E2. MIPARKER CHILD 03/28/2019 11:48 03/30/2019 9:36 EST [facility] Scanned Images 03/30/2019 9:36 EST [facility] Tissue SPECIMEN FROM RECTUM / [...] Unknown 03/27/2019 12:30 EST 03/28/2019 11:10 EST us Geovany Ibrahim MD PATHOLOGY ORDERABLES Fin al Result [facility] [address] [place] [address] documented in this encounter Visit Diagnoses Diagnosis Encounter for other general examination documented in this encounter Care Teams Registered Nurse First Assistant Relationship Specialty Start Date End Date Rajat Roca MD [address] [place] [address] PCP - General 04/20/16 01/06/22 Samantha Escalante NP [address] [place] [address] PCP - General 01/07/22 documented as of this encounter
--- OUTSIDE RECORDS SUMMARY | 2024-03-23 00:41 | XMS_ITS | Encounter Summary ---
Author Organization [facility] [place] [address] Care Team Providers Care Locks Inspector Name Role Phone Samantha Escalante APRN Primary Care Provider Reason for Visit * Reason Comments Skin Check * Consultation (Routine) - Specialty Diagnoses / Procedures Referred By Wai del castillo Referred To Contact Dermatology Diagnoses Other seborrheic keratosis Seborrheic keratosis Procedures Consult Samantha Escalante APRN [address] [place] [address] Willard Parra MD [address] [place] [address], [facility] [place] [address] Referral ID Status Reason Start Date Expiration Date V isits Requested Visits Authorized [id number] 09/28/2017 09/28/2018 1 1 Encounter Details Date Type Department Care Team (Late st Contact Info) Description 04/14/2018 11:00 AM EST Office Visit Dermatology at [address] [address] Willard Parra MD [address] [place] [address], [facility] A DERMATOLOGY [place], [place] [id number] Seborrheic keratosis Social History Tobacco Use Types [...] 1. Patient given informational brochure from the [employer] about seborrheic keratoses 2. [...] keratosis documented in this encounter Care Teams Locks Inspector Relationship Specialty Start Date End Date Samantha Escalante APRN [address] [place] [address] PCP - General Family Medicine 10/06/17 documented as of this encounter
--- OUTSIDE RECORDS SUMMARY | 2024-03-23 00:41 | XMS_ITS | Encounter Summary ---
Author Organization [facility] Address [address] [place] [address] Care Team Providers Care Official Greeter Name Role Phone Jacqui Anaya MD Primary Care Provider [phone] Encounter Details Date Type Department Care Team (Late st Contact Info) Description 04/14/2016 Results Only [facility] [phone] Van Mills, DO [address] [facility] [address] [place] [id number] Social History Tobacco Use Types Packs/Day Years [...] ? GALINA VELIZ ? Accession #: ? [id number] ? : ? 1955 (Age: 60) ??F ? Collect Date: ? 04/14/2016 ? Location: ? [facility] ? Receive Date: ? 04/15/2016 ? Provider: VAN MILLS DO Copy to: RIK CHILDS MD [...] x 0.2 cm). Entirely submitted in D1. Imani Myersmartínez 04/16/2016 10:51 AM End of Report [facility] 04/14/2016 20:1 1 EST 04/15/2016 20:11 EST us Van Mills DO PATHOLOGY ORDERABLES Fi nal Result Performing Organization Address City/State/[facility] Co de Phone Number [facility] [address] [place] [address] documented in this encounter Visit Diagnoses Not on filedocumented in this encounter Care Teams Official Greeter Relationship Specialty Start Date End Date Jacqui Anaya MD [address] [place] [address] PCP - General 04/13/11 04/19/16 documented as of this encounter
--- OUTSIDE RECORDS SUMMARY | 2024-03-23 00:41 | XMS_ITS | Encounter Summary ---
[place] [address] Care Team Providers Care Nurses Medical Assistants Phlebotomists Name Role Phone Samantha Escalante APRN Primary Care Provider Reason for Visit * Diagnostic Test (Routine) - Closed Specialty Diagnoses / Procedures Referred By Wai t Referred To Contact Radiology Diagnoses Coronary artery disease, angina presence unspecified, unspecified vessel or lesion type, unspecified whether yurok or transplanted heart Procedures NM Pharmacologic Stress and Rest Myocardial Perfusion Samantha Escalante APRN [address] [place] [address] [place] [address] Referral ID Status Reason Start Date Expiration Date V isits Requested Visits Authorized [id number] Closed Specialty Service Requested 12/27/2019 06/23/2020 1 1 Encounter Details Date Type Department Care Team (Late st Contact Info) Description 04/01/2020 7:38 AM EST Hospital Encounter [place] [address] Samantha Escalante APRN [address] [place], [place] [id number] Discharge Disposition: Home Social History Tobacco Use [...] gemfibrozil (LOPID) 600 mg tablet 10/28/2009 10/13/2020 [place]-3 Fatty Acids-Fish Oil (FISH OIL OMEGA 3-6-9) [...] unspecified vessel or lesion type, unspecified whether yurok or transplanted heart documented in this encounter [...] Arm documented in this encounter Care Teams Nurses Medical Assistants Phlebotomists Relationship Specialty Start Date End Date Kikearely Samantha, CHACE [address] [place] [address] PCP - General Family Medicine 10/06/17 documented as of this encounter
--- OUTSIDE RECORDS SUMMARY | 2024-03-23 00:41 | XMS_ITS | Encounter Summary ---
Author Organization [facility] [place] [address] Care Team Providers Care Carbonizer Tester Name Role Phone Samantha Escalante APRN Primary Care Provider [phone] Reason for Visit * Reason Comments Follow-up Skin Lesion Encounter Details Date Type Department Care Team (Late st Contact Info) Description 10/13/2020 2:20 PM EDT Office Visit Dermatology at [address] [address] Petros Durand MD [facility] [address] [place] [address] Seborrheic keratosis, inflamed Social History Tobacco Use [...] very itchy and bothersome. Last visit at [facility] Derm: 09/15/2020 Last visit with this [...] ??? N/A RTC: PRN []Note routed to escrow secretary []Recall has been placed in scheduling system []Appointment scheduled at checkout Scribe attestation: Opal Bernabe [facility] who has performed the documentation for this encounter in the presence of and acting as a scribe for Petros Durand MD. I performed the above scribed service and agree with the accuracy of the documentation in this encounter. Reviewed and signed by: Petros Durand MD Dermatology [facility] Patient seen and evaluated with staff park interpretive ranger: Cheyenne Bradford MD Dermatology [facility] * Cheyenne Bradford MD - 10/13/2020 [...] keratosis documented in this encounter Care Teams Carbonizer Tester Relationship Specialty Start Date End Date Samantha Escalante APRN [address] [place] [address] PCP - General Family Medicine 10/06/17 documented as of this encounter
--- OUTSIDE RECORDS SUMMARY | 2024-03-23 00:41 | XMS_ITS | Encounter Summary ---
Author Organization [facility] Address [address] [place] [address] Care Team Providers Care Field Marketing Director Name Role Phone ElaineSamantha worthington DELIA Primary Care Provider [phone] Encounter Details Date Type Department Care Team (Late st Contact Info) Description 11/02/2023 Lab Requisition [facility] Pathology & Laboratory Medicine - [facility] [address] [place] [address] Klever Mcneal MD [address] [place] [address], [address] [place], [place] [address] Iron deficiency anemia, unspecified Social History Tobacco [...] explore management options, if applicable. 11/03/2023 16:36 [facility] Final Diagnosis A. DUODENUM, [...] POLYP, BIOPSY: - Hyperplastic polyp. 11/03/2023 16:36 [facility] Attestation By the signature below, the attending physician certifies that they have 1) personally conducted a gross and/or microscopic examination of the described specimen(s), and/or personally interpreted the results of laboratory testing of the described specimen(s), and 2) personally rendered or confirmed the above diagnosis. 11/03/2023 16:36 [facility] at 1636 Clinical History Anemia, Alford's esophagus, colon polyps, gastritis 11/03/2023 16:36 [facility] Gross Description A. Received [...] Emily Arron 11/03/2023 7:58 11/03/2023 16:36 EDT [facility] Performing Lab [facility] 11/03/2023 16:36 EDT [facility] Scanned Images 11/03/2023 16:36 EDT [facility] Tissue POLYP OF COLON / [...] Unknown 11/02/2023 10:24 EDT 11/02/2023 20:15 EDT us Klever Mcneal MD PATHOLOGY ORDERABLES Final Resu lt [facility] [address] [place] [address] documented in this encounter Visit Diagnoses Diagnosis Iron deficiency anemia, unspecified documented in this encounter Care Teams Field Marketing Director Relationship Specialty Start Date End Date Samantha Escalante NP [address] [place] [address] [address] [place] [id number] PCP - General 01/07/22 documented as of this encounter
--- OUTSIDE RECORDS SUMMARY | 2024-03-23 00:41 | XMS_ITS | Encounter Summary ---
Author Organization [facility] [place] [address] Care Team Providers Care Vibrating Screen Operator Name Role Phone Samantha Escalante APRN Primary Care Provider Encounter Details Date Type Department Care Team (Late st Contact Info) Description 06/22/2021 3:00 PM EST Office Visit Dermatology at [address] [phone] Willard Navarrete MD [address] [facility] [place] [address] Seborrheic keratoses Social History Tobacco Use Types [...] keratoses documented in this encounter Care Teams Vibrating Screen Operator Relationship Specialty Start Date End Date Samantha Escalante APRN [address] [place] [address] [address] [place] [address] PCP - General Family Medicine 10/06/17 documented as of this encounter
--- OUTSIDE RECORDS SUMMARY | 2024-03-23 00:41 | XMS_ITS | Encounter Summary ---
Author Organization [facility] [address] Care Team Providers Care Playback Operator Name Role Phone Samantha Escalante APRN Primary Care Provider Reason for Visit * Consultation (Routine) - Closed Specialty Diagnoses / Procedures Referred By Wai del castillo Referred To Contact Gastroenterology Diagnoses Alford's esophagus Procedures Consult Samantha Escalante APRN [address] [place] [address] [facility] [address] [place] [address] Referral ID Status Reason Start Date Expiration Date Visits Re quested Visits Authorized [id number] Closed 03/12/2020 03/12/2021 1 1 Encounter Details Date Type Department Care Team (Late st Contact Info) Description 10/13/2020 1:00 PM EDT Office [place] [address] Thania Lau MD [facility] [place] [address] RUQ pain Social History Tobacco [...] from the original note were not included. [facility] Division of Gastroenterology and Hepatology Outpatient Consultation [...] TAKE 1 TABLET BY MOUTH DAILY ??? [place]-3 Fatty Acids-Fish Oil (FISH OIL OMEGA 3-6-9) 300-1,000 mg CpDR (Patient not taking: No sig reported) No current facility-administered medications for this visit. Allergies Allergen Reactions ??? Omeprazole Other reaction(s): Rash, itching all over ??? Fctehba-Hjg-Cbv Reductase Inhibitors Other reaction(s): MUSCLE ACHES ??? [...] of caffeine and chocolate -BE surveillance due [id number] -RTC 3 months This case was discussed with Dr. Percy Lau MD Fellow in Gastroenterology and Hepatology [place] [id number] P: [phone] F: [phone] CC Samantha Escalante APRN [address] [place] [address] * Thiago Greer MD - 10/13/2020 1:00 [...] quadrant documented in this encounter Care Teams Playback Operator Relationship Specialty Start Date End Date Samantha Escalante APRN [address] [place] [address] PCP - General Family Medicine 10/06/17 documented as of this encounter
--- OUTSIDE RECORDS SUMMARY | 2024-03-23 00:41 | XMS_ITS | Encounter Summary ---
Author Organization [facility] [place] [address] Care Team Providers Care Workforce Development Assistant Name Role Phone Samantha Escalante APRN Primary Care Provider Encounter Details Date Type Department Care Team (Late st Contact Info) Description 10/14/2020 Tele[place] [address] Sharonda Durand Social History Tobacco Use Types [...] on filedocumented in this encounter Care Teams Workforce Development Assistant Relationship Specialty Start Date End Date Samantha Escalante APRN [address] [place] [address] PCP - General Family Medicine 10/06/17 documented as of this encounter
--- OUTSIDE RECORDS SUMMARY | 2024-03-23 00:41 | XMS_ITS | Encounter Summary ---
[place] [address] Care Team Providers Care Electrician Crane Maintenance Name Role Phone Samantha Escalante APRN Primary Care Provider Reason for Referral * Diagnostic Test (Routine) - Closed Specialty Diagnoses / Procedures Referred By Wai t Referred To Contact Radiology Diagnoses Coronary artery disease, angina presence unspecified, unspecified vessel or lesion type, unspecified whether [place] or transplanted heart Procedures NM Pharmacologic Stress and Rest Myocardial Perfusion Samantha Escalante APRN [address] [place] [address] [place] [address] Referral ID Status Reason Start Date Expiration Date V isits Requested Visits Authorized [id number] Closed Specialty Service Requested 12/27/2019 06/23/2020 1 1 Reason for Visit * Diagnostic Test (Routine) - Closed Specialty Diagnoses / Procedures Referred By Wai t Referred To Contact Radiology Diagnoses Coronary artery disease, angina presence unspecified, unspecified vessel or lesion type, unspecified whether [place] or transplanted heart Procedures NM Pharmacologic Stress and Rest Myocardial Perfusion Samantha Escalante APRN [address] [place] [address] [place] [address] Referral ID Status Reason Start Date Expiration Date V isits Requested Visits Authorized [id number] Closed Specialty Service Requested 12/27/2019 06/23/2020 1 1 Encounter Details Date Type Department Care Team (Late st Contact Info) Description 04/01/2020 7:37 AM EST Hospital Encounter [place] [address] Ava, Samantha, MANAGER PUBLIC [address] [place], [place] [id number] Coronary artery disease, angina presence unspecified, unspecified vessel or lesion type, unspecified whether [place] or transplanted heart Discharge Disposition: Home Social [...] gemfibrozil (LOPID) 600 mg tablet 10/28/2009 10/13/2020 [place]-3 Fatty Acids-Fish Oil (FISH OIL [place] 3-6-9) [...] unspecified vessel or lesion type, unspecified whether [place] or transplanted heart documented in this encounter [...] ? Electronically signed by: Erick Wallace MD, [facility] ([phone]), at 04/01/2020 11:32 AM Narrative 04/01/2020 11:32 [...] below. Electronically signed by: Erick Wallace MD, [facility]([phone]), at 04/01/2020 11:32 AM Samantha Adjovu MANAGER PUBLIC IMG NM ORDERABLES documented in this encounter Visit Diagnoses Diagnosis Coronary artery disease, angina presence unspecified, unspecified vessel or lesion type, unspecified whether [place] or transplanted heart documented in this encounter [...] mCi documented in this encounter Care Teams Electrician Crane Maintenance Relationship Specialty Start Date End Date Samantha Escalante, MANAGER PUBLIC [address] [place] [address] [address] [place] [address] PCP - General Family Medicine 10/06/17 documented as of this encounter
--- OUTSIDE RECORDS SUMMARY | 2024-03-23 00:41 | XMS_ITS | Encounter Summary ---
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, lumbar region SPONDYLOSIS DDD Procedures PRO LAMINEC/FACETECT/FORAMIN, LUMBAR 1 SEG LAMINECTOMY, FACETECTOMY & FORAMINOTOMY,LUMBAR, ONE LEVEL (WRVU 15.37) Referral ID Status Reason Start Date Expiration Date Visits Re quested Visits Authorized [id number] 1 1 Encounter Details Date Type Department Care Team (Late st Contact Info) Description 08/05/2021 1:35 PM EDT Ancillary Procedure Radiology Xray at [facility] [place] [address] Social History Tobacco Use Types Packs/Day Years [...] on filedocumented in this encounter Care Teams Mortician Supplies Sales Representative Relationship Specialty Start Date End Date Ava CHACE Singh [address] [place] [address] PCP - General Family Medicine 10/06/17 documented as of this encounter
--- OUTSIDE RECORDS SUMMARY | 2024-03-23 00:41 | XMS_ITS | Encounter Summary ---
[facility] [place] [address] Care Team Providers Care Enamel Dipper Name Role Phone Samantha Escalante APRN Primary Care Provider [phone] Encounter Details Date Type Department Care Team [...] on filedocumented in this encounter Care Teams Enamel Dipper Relationship Specialty Start Date End Date Samantha Escalante APRN [address] [place], [place] [address] PCP - General Family Medicine 10/06/17 documented as of this encounter
--- OUTSIDE RECORDS SUMMARY | 2024-03-23 00:41 | XMS_ITS | Encounter Summary ---
Author Organization [facility] Address [address] [place] [address] Care Team Providers Care Implementation Project Coordinator Name Role Phone ElaineSamantha worthington COMPARATOR OPERATOR Primary Care Provider [phone] Encounter Details Date Type Department Care Team (Late st Contact Info) Description 11/25/2023 Lab Requisition [facility] Pathology [facility] [place] [address] Outr Resulting Lab, Provider Social History Tobacco [...] Procedure Name Priority Date/Time Associated Diagnosis Comments HEPATITIS B PROFILE Routine 11/25/2023 8:28 EDT documented in this encounter Results * HEPATITIS B PROFILE (11/25/2023 8:28 EDT) Hep B Surface Ag Negative Negative 11/25/19 21:27 EDT [facility] Hep B Surface Ab, Quantitative <3.1 See Note mIU/mL 11/25/2023 21:27 EDT [facility] Comment: Reference Range for Hep B Surface Ab, Quant: Positive: >= 10.0 mIU/mL Negative: ??< 10.0 mIU/mL Patient is presumed to not be immune to infection with Hepatitis B Virus. Hep B Surface Ab, Qualitative Negative See Note 11/25/2023 21:27 EDT [facility] Comment: Reference Range for Hep B Surface Ab, Qual: Unvaccinated: ??Negative Vaccinated: ??Positive Hepatitis B Core Ab, Total Negative Negative 11/25/2023 21:27 EDT [facility] Blood VENOUS BLOOD / Unknown 11/25/2023 8:28 EDT 11/25/2023 19:51 EDT us Provider Outr Resulting Lab CHEMISTRY & BLOOD GA S ORDERABLES Final Result [facility] [address] [place] [address] documented in this encounter Visit Diagnoses Not on filedocumented in this encounter Care Teams Implementation Project Coordinator Relationship Specialty Start Date End Date Samantha Escalante NP [address] [place] [address] [address] [place] [address] PCP - General 01/07/22 documented as of this encounter
--- OUTSIDE RECORDS SUMMARY | 2024-03-23 00:41 | XMS_ITS | Encounter Summary ---
Author Organization [facility] [place] [address] Care Team Providers Care Nuclear Logging Engineer Name Role Phone Samantha Escalante APRN Primary Care Provider Encounter Details Date Type Department Care Team (Late st Contact Info) Description 07/21/2021 12:45 PM EDT Telephone Pre-Admission Testing at [facility] [address] [place] [address] Social History Tobacco Use Types [...] on filedocumented in this encounter Care Teams Nuclear Logging Engineer Relationship Specialty Start Date End Date Samantha Escalante APRN [address] [place] [address] [address] [facility] [address] [place] [address] PCP - General Family Medicine 10/06/17 documented as of this encounter
--- OUTSIDE RECORDS SUMMARY | 2024-03-23 00:42 | XMS_ITS ---
Author Organization Unknown ALLERGIES AND ADVERSE REACTIONS No information ASSESSMENT No information CHIEF COMPLAINT No information MEDICATIONS No information OBJECTIVE DATA No information PHYSICAL EXAMINATION No information TREATMENT PLAN Planned Care Start Date Provider Encounter for Check-up [id number] PROBLEMS No information RESULTS No information REVIEW OF SYSTEMS No information SUBJECTIVE DATA No information VITAL SIGNS No information
--- NOTE | 2024-03-23 06:45 | DI.MAMMO_ITS ---
Exam(s) MAMMO SCREENING EXAM: MAMMO SCREENING CLINICAL HISTORY: screening,Z12.39 TECHNIQUE: Mammograms were interpreted according to the usual protocol including computer analysis w [employer] CAD system, tomosynthesis and C-view imaging. COMPARISON: 2014 through 2022 FINDINGS: The breasts are composed of scattered fibroglandular densities, Breast Density category B. No suspicious masses or suspicious microcalcifications are seen. Decreased prominence by bilateral b last nodules. Benign appearing calcifications noted bilaterally. No skin thickening or abnormal axillary lymph nodes are seen. There has been no significant change from prior exams. IMPRESSION: BI-RADS Category 2 - Benign Findings Yearly screening mammography is recommended. Breast Density - Category B, scattered fibroglandular densities. A negative radiographic report should not delay biopsy if a dominant or clinically suspicious mass is present. Up to ten percent of cancers are not identified on mammography. A negative report may reinforce clinical impression. Adenosis and dense breasts may obscure an underlying neoplasm. False positive reports average 6 to 10%. Patient will receive a letter notifying them of these results.
== END 2024-03-23 00:59 ==
LOC: DI 00:39
PROVIDERS: PCP Nurse Practitioner Family; Visit Provider Nurse Practitioner Family
DX: Z12.31 Encounter for screening mammogram for malignant neoplasm of breast (principal); D24.1 Benign neoplasm of right breast; D24.2 Benign neoplasm of left breast; R92.323 Mammographic fibroglandular density, bilateral breasts
CPT/HCPCS: 77063; 77067

== ENCOUNTER 2024-05-25 14:09 | Outpatient (REF) | payer MEDICARE, SELFPAY ==
--- OUTSIDE RECORDS SUMMARY | 2024-05-25 14:12 | XMS_ITS | Encounter Summary ---
[place] [address] Care Team Providers Care Weaver Axminster Name Role Phone Samantha Escalante APRN Primary Care Provider Reason for Referral * Diagnostic Test (Routine) - Closed Specialty Diagnoses / Procedures Referred By Contac t Referred To Contact Radiology Diagnoses Spondylosis of lumbosacral region, unspecified spinal osteoarthritis complication status Low back pain, unspecified back pain laterality, unspecified chronicity, unspecified whether sciatica present Procedures CT Guided Injection SI Joint Jacinto Apodaca MD [address] [place] [address] [facility] [place] [address] Referral ID Status Reason Start Date Expiration Date V isits Requested Visits Authorized [id number] Closed Specialty Service Requested 06/15/2022 12/14/2023 1 1 Reason for Visit * Diagnostic Test (Routine) - Closed Specialty Diagnoses / Procedures Referred By Contac t Referred To Contact Radiology Diagnoses Spondylosis of lumbosacral region, unspecified spinal osteoarthritis complication status Low back pain, unspecified back pain laterality, unspecified chronicity, unspecified whether sciatica present Procedures CT Guided Injection SI Joint Jacinto Apodaca MD [address] [place] [address] [facility] [place] [address] Referral ID Status Reason Start Date Expiration Date V isits Requested Visits Authorized [id number] Closed Specialty Service Requested 06/15/2022 12/14/2023 1 1 Encounter Details Date Type Department Care Team (Latest Contact Info) Description 07/13/2022 10:04 AM EST - 07/13/2022 11:59 PM EST Hospital [place] [address] Jacinto Apodaca MD Spondylosis of lumbosacral region, [...] who have questions please contact the health assistant child care teacher that requested your imaging first. ? Narrative [...] patients who have questions please contactthe health assistant child care teacher that requested your imaging first. Jacinto Apodaca [...] mLs documented in this encounter Care Teams Weaver Axminster Relationship Specialty Start Date End Date Samantha Escalante APRN [address] [place] [address] [address] [facility] [address] [place] [address] PCP - General Family Medicine 10/06/17 documented as of this encounter
--- OUTSIDE RECORDS SUMMARY | 2024-05-25 14:12 | XMS_ITS | Encounter Summary ---
Author [facility] [place] [address] Care Team Providers Care Silo Worker Name Role Phone Samantha Escalante APRN Primary Care Provider [phone] Encounter Details Date Type Department Care Team [...] on filedocumented in this encounter Care Teams Silo Worker Relationship Specialty Start Date End Date Samantha Escalante APRN [address] [facility] [address] [place] [address] PCP - General Family Medicine 10/06/17 documented as of this encounter
--- OUTSIDE RECORDS SUMMARY | 2024-05-25 14:12 | XMS_ITS | Encounter Summary ---
Author Organization [facility] [place] [address] Care Team Providers Care Assistant Media Buyer Name Role Phone Samantha Escalante APRN Primary Care Provider Reason for Visit * Auth/Cert (Routine) Specialty Diagnoses / Procedures Referred By Wai del castillo Referred To Contact Diagnoses BILATERAL SI JOINT DYSFUNCTION Procedures PRO ARTHRODESIS SACROILIAC JOINT PERCUTANEOUS Jacinto Apodaca MD [address] [place] [address] Referral ID Status Reason Start Date Expiration Date Visits Re quested Visits Authorized [id number] 10/26/2022 1 1 Encounter Details Date Type Department Care Team (Late st Contact Info) Description 11/17/2022 1:40 PM EDT - 11/17/2022 3:40 PM EDT Surgery Operating Room [facility] [address] [place] [address] Jacinto Apodaca MD [address] [place] [address] ARTHRODESIS,SACROILIAC JOINT FUSION (WRVU 12.13) Social History [...] post-operative follow up appointment with your surgeon/physician???s psychiatric nursing assistant scheduled. If you have any questions, [...] when to stop taking it. Only take gasf-aud-unvwwbb or prescription medicine for pain, discomfort or [...] or concerns. SMOKING CESSATION INFORMATION: [place] QUITLINE: [place] QUITLINE: www.[email or web address] If you smoke, it is recommended that you stop now! MAKE SURE YOU: Understand these instructions. Will seek medical care if you are feeling poor, or get worse. Will call the surgeon???s office with any questions or concerns at : [phone] Nursing information only: Original document to medical [...] Apodaca MD - 11/17/2022 1:08 PM EDT [facility] Operative Note [facility] [address] [place] [address] Patient Name: Lynda Pedersen : [id number] MR#: [id number] Case Date: 11/17/2022 Case Scheduled Time: 1340 Surgeon: Surgeon(s) and Role: * Jacinto Apodaca MD - Primary * Denny Fuentes PA - Physician Smoke Inspector Preoperative diagnosis: BILATERAL SI JOINT DYSFUNCTION Postoperative diagnosis: BILATERAL SI JOINT DYSFUNCTION Actual procedure: Bilateral SI joint instrumented fusion using [place] screws, locally harvested bone, and bone morphogenic [...] CT scan. We imported the CTinto the [employer]alth station and planned our surgical trajectories. We [...] awl-tip tap is utilized to create a relief pilot hole under live image guidance. Next the hole is palpated with the image guided probe to ensure no unexpected breach of cortex. Next the [place] bone harvest device and final tap is utilized under live image guidance along the relief pilot hole trajectory. This final hole is palpated again with the image guided probe. The bone harvest device is cleaned of its bone graft which is then implanted into the central channel of the [place] screw along withbone morphogenic sponge. The ends of the [place] screw were capped with demineralized bone matrix [...] the duration of the operative session. The psychiatric nursing assistant adequately prepped the operative site and [...] SI JOINT DYSFUNCTION Arthrodesis Sacroiliac Joint Percutaneous (34768) 11/17/2022 12:48 PM EDT BILATERAL SI JOINT [...] RN) documented in this encounter Care Teams Assistant Media Buyer Relationship Specialty Start Date End Date Samantha Escalante APRN [address] [place] [address] PCP - General Family Medicine 10/06/17 documented as of this encounter
--- OUTSIDE RECORDS SUMMARY | 2024-05-25 14:12 | XMS_ITS | Encounter Summary ---
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, lumbar region SPONDYLOSIS DDD Procedures PRO LAMINEC/FACETECT/FORAMIN, LUMBAR 1 SEG LAMINECTOMY, FACETECTOMY & FORAMINOTOMY,LUMBAR, ONE LEVEL (WRVU 15.37) Referral ID Status Reason Start Date Expiration Date Visits Re quested Visits Authorized [id number] 1 1 Encounter Details Date Type Department Care Team (Late st Contact Info) Description 08/05/2021 1:35 PM EDT Ancillary Procedure Radiology Xray at [facility] [place] [address] Social History Tobacco Use Types Packs/Day Years [...] on filedocumented in this encounter Care Teams Rechecker Relationship Specialty Start Date End Date Ava CHACE Singh [address] [place] [address] PCP - General Family Medicine 10/06/17 documented as of this encounter
--- OUTSIDE RECORDS SUMMARY | 2024-05-25 14:12 | XMS_ITS | Encounter Summary ---
Author Organization [facility] [place] [address] Care Team Providers Care Reservoir Engineer Name Role Phone Samantha Escalante APRN Primary Care Provider Reason for Visit * Auth/Cert (Routine) Specialty Diagnoses / Procedures Referred By Wai del castillo Referred To Contact Diagnoses BILATERAL SI JOINT DYSFUNCTION Procedures PRO ARTHRODESIS SACROILIAC JOINT PERCUTANEOUS Jacinto Apodaca MD [address] [place] [address] Referral ID Status Reason Start Date Expiration Date Visits Re quested Visits Authorized [id number] 10/26/2022 1 1 Encounter Details Date Type Department Care Team (Latest Contact Info) Description 11/17/2022 11:10 AM EDT - 11/17/2022 4:12 PM EDT Hospital Encounter Post Acute Care Unit at [facility] [address] [place] [address] Jacinto Apodcaa MD [address] [place] [address] Disorder of sacrum Discharge Disposition: Home Social [...] post-operative follow up appointment with your surgeon/physician???s instruction assistant principal scheduled. If you have any questions, please [...] when to stop taking it. Only take lspi-brn-lgjtmqh or prescription medicine for pain, discomfort or [...] or concerns. SMOKING CESSATION INFORMATION: [place] QUITLINE: [place] QUITLINE: [email or web address] If you smoke, it is recommended that you stop now! MAKE SURE YOU: Understand these instructions. Will seek medical care if you are feeling poor, or get worse. Will call the surgeon???s office with any questions or concerns at : [phone] Nursing information only: Original document to medical [...] Apodaca MD - 11/17/2022 1:08 PM EDT [facility] [place] [address] Patient Name: Lynda Pedersen : [id number] MR#: [id number] Case Date: 11/17/2022 Case Scheduled Time: 1340 Surgeon: Surgeon(s) and Role: * Jacinto Apodaca MD - Primary * Denny Fuentes PA - Physician Cab Supervisor Preoperative diagnosis: BILATERAL SI JOINT DYSFUNCTION Postoperative diagnosis: BILATERAL SI JOINT DYSFUNCTION Actual procedure: Bilateral SI joint instrumented fusion using [place] screws, locally harvested bone, and bone morphogenic [...] CT scan. We imported the CTinto the [employer] station and planned our surgical trajectories. We [...] tap is utilized to create a pilot boat deckhand hole under live image guidance. Next the hole is palpated with the image guided probe to ensure no unexpected breach of cortex. Next the [place] bone harvest device and final tap is utilized under live image guidance along the pilot boat deckhand hole trajectory. This final hole is palpated again with the image guided probe. The bone harvest device is cleaned of its bone graft which is then implanted into the central channel of the [place] screw along withbone morphogenic sponge. The ends of the [place] screw were capped with demineralized bone matrix [...] the duration of the operative session. The instruction assistant principal adequately prepped the operative site and maintained [...] SI JOINT DYSFUNCTION Arthrodesis Sacroiliac Joint Percutaneous (65869) 11/17/2022 12:48 PM EDT BILATERAL SI JOINT [...] RN) documented in this encounter Care Teams Reservoir Engineer Relationship Specialty Start Date End Date Samantha Escalante APRN [address] [place] [address] PCP - General Family Medicine 10/06/17 documented as of this encounter
--- OUTSIDE RECORDS SUMMARY | 2024-05-25 14:12 | XMS_ITS | Encounter Summary ---
Author Organization [facility] [place] [address] Care Team Providers Care Electronic Communications Technician Name Role Phone Samantha Escalante APRN Primary Care Provider Encounter Details Date Type Department Care Team (Late st Contact Info) Description 10/27/2023 6:05 PM EDT Ancillary Procedure Radiology Library at [facility] [place] [address] Samantha Escalante APRN [address] [place], [place] [id number] Social History Tobacco Use Types Packs/Day Years Used Date Smoking Tobacco: Former Cigarettes 1 45 1 973 - 2018 Smokeless Tobacco: Never Alcohol Use Standard Drinks/Week Comments Never 0 (1 standard drink = 0.6 oz pur e alcohol) [facility] Inpatient Questions Answer Date Recorded Does Anyone [...] FILM LIBRARY OR DERABLES Performing Organization Address City/State/[facility] Co de Phone Number [place], [place] documented in this encounter Visit Diagnoses Not on filedocumented in this encounter Care Teams Electronic Communications Technician Relationship Specialty Start Date End Date Samantha Escalante APRN [address] [place] [address] PCP - General Family Medicine 10/06/17 documented as of this encounter
--- OUTSIDE RECORDS SUMMARY | 2024-05-25 14:12 | XMS_ITS | Encounter Summary ---
Author Organization [facility] [place] [address] Care Team Providers Care Waiter/Waitress Dining Car Name Role Phone Samantha Escalante APRN Primary Care Provider [phone] Encounter Details Date Type Department Care Team (Late st Contact Info) Description 09/23/2023 Orders Only [place] [address] Jacqui Small [facility] DR H[place]Y [place] [address] Social History Tobacco Use Types Packs/Day Years Used Date Smoking Tobacco: Former Cigarettes 1 45 1 [id number] Smokeless Tobacco: Never Alcohol Use Standard Drinks/Week Comments Never 0 (1 standard drink = 0.6 oz pur e alcohol) [facility] Inpatient Questions Answer Date Recorded Does [...] on filedocumented in this encounter Care Teams Waiter/Waitress Dining Car Relationship Specialty Start Date End Date Adjovu, SamanthaCHACE [address] [place] [address] PCP - General Family Medicine 10/06/17 documented as of this encounter
--- OUTSIDE RECORDS SUMMARY | 2024-05-25 14:12 | XMS_ITS | Encounter Summary ---
Author Organization [facility] [place] [address] Care Team Providers Care Rotoprinter Name Role Phone Samantha Escalante APRN Primary Care Provider Encounter Details Date Type Department Care Team (Late st Contact Info) Description 11/16/2022 9:45 AM EDT Telephone Pre-Admission Testing at [facility] [address] [place] [address] Social History Tobacco Use Types [...] on filedocumented in this encounter Care Teams Rotoprinter Relationship Specialty Start Date End Date Samantha Escalante APRN [address] [place], [place] [address] [place] [address] PCP - General Family Medicine 10/06/17 documented as of this encounter
--- OUTSIDE RECORDS SUMMARY | 2024-05-25 14:12 | XMS_ITS | Encounter Summary ---
Author Organization [facility] [place] [address] Care Team Providers Care File Drawer Finisher Name Role Phone Samantha Escalante APRN Primary [...] on filedocumented in this encounter Care Teams File Drawer Finisher Relationship Specialty Start Date End Date Samantha Escalante APRN [address] [place] [address] PCP - General Family Medicine 10/06/17 documented as of this encounter
--- OUTSIDE RECORDS SUMMARY | 2024-05-25 14:12 | XMS_ITS | Encounter Summary ---
Author Organization [facility] [place] [address] Care Team Providers Care Transportation Clerk Name Role Phone Samantha Escalante APRN Primary Care Provider Encounter Details Date Type Department Care Team (Late st Contact Info) Description 06/21/2022 12:27 PM EST - 06/21/2022 2:53 PM EST Surgery [place] [phone] Keli Eli MD [facility] [place] [address] LAPAROSCOPY, REMOVAL OF ADNEXA (WRVU 11.35) Social [...] PATIENT DISCHARGE INSTRUCTIONS Gynecologic Oncology phone number: [phone] (Nurse ext 4 then 4; appointment ext 1 then 4). After hours and on weekends please call hospital alum plant operator at [phone] and ask for Gynecologic Oncologist chemical production technician. Call your doctor if you develop: --A fever over 101 degrees --Severe pain --Increasing pain, redness, or discharge at any of your incisions --Heavy vaginal bleeding-soaking through a pad an hour Future Appointments and Orders Future Appointments and Orders Future Appointments Provider Department Dept Phone 07/09/2022 9:40 AM Keli Eli MD Gynecology Oncology at [facility] Arrive at: Storehouse Clerk Area 3K [phone] Activity level: Let your body guide you. [...] Eli MD - 06/21/2022 1:21 PM EST [facility] Operative Note Patient Name: Lynda Pedersen : [id number] MR#: [id number] Case Date: 06/21/2022 Surgeon: Surgeon(s) and Role: [...] CYTOPATHOLOGY NON-GYNECOLOGICAL Pelvic Washings for Permanent OR28 03250 06/21/2022 1:34 PM Pertinent clinical data and significant therapy: ADNEXAL MASS Clinical impression: Pelvic Washings Procedure Type: Cystoscopy Specimen Type: Pelvic wash SPECIMEN TO PATHOLOGY Please perform frozen section OR28 84786 ADNEXAL MASS Right Fallopian Tube and Right [...] endometrioma. ?? She was seen by her rubber cutter Dr. Plascencia ([facility]) who ordered tumor markers: Ca 125 7.2, AFP 6.4, bHCG 6.2. ?? I saw Estephanie for a visit in the general grinder chipper clinic and subsequently referred her here for [...] TO PATHOLOGY Routine 06/21/2022 1:38 PM EST NON-NURSING EDUCATOR FINAL REPORT Routine 06/21/2022 1:34 PM EST CYTOPATHOLOGY NON-GYNECOLOGICAL Routine 06/21/2022 1:34 PM EST Lap, Rmv Adnexal Structure ([id number]) Yes 06/21/2022 12:49 PM EST ADNEXAL MASS POCT GLUCOSE Routine 06/21/2022 12:36 PM EST documented in this encounter Results * Surgical Pathology Report (06/21/2022 1:38 PM EST) Final Diagnosis [id number] ? Location: [facility]; [facility]; The signing pathologist has (i) examined the relevant preparation(s) for the specimen(s) and (ii) rendered or confirmed the diagnosis(es). . ?Surgical Pathology DIAGNOSIS Right fallopian tube and ovary (salpingo-oophore ctomy): ?? 1. Ovarian serous cystadenoma. ?? 2. Benign fallopian tube. CR-0 Electronically signed by: ?Yadiel YA, Steve Gautam Verified: ??06/28/2022 15:10 ??Pathologist Performed at: ??-[facility] Dept. of Pathology, [place] [id number] Technology Internship: Liss Shepard MD, FCAP, ??CLIA Certificate: [id number] SPECIMEN(S) SUBMITTED A - Right fallopian tube [...] Fallopian Tube: 4.0 x 0.6 cm, fimbriated. Fighting Vehicle Systems Maintainer sections in 7 cassettes as follows: ?A1: FS1: Focal thickened cyst lining ?A2: Right fallopian tube, fimbriae ?A3: Right fallopian tube, cross sections ?A4-A7: Right ovary cystic lesion ??njrs ?Frozen Section FROZEN SECTION DIAGNOSIS AFS1 - Right fallopian tube and right ovary: ? - Serous cystadenoma. 06/21/22 14:28/jlb Electronically signed by: ?Jana YA, Bessie Vela Verified: ??06/21/2022 14:30 ??Pathologist Performed at: ??-[facility] Dept. of Pathology, [place] [address] Technology Internship: Liss Shepard MD, AP, ??CLIA Certificate: [id number] This intraoperative consultation should be interpreted as a preliminary diagnosis pending review of the entire specimen and special studies, if any. A final Surgical Pathology report will follow this preliminary Frozen Section report(s). 06/28/2022 3:10 PM EST [facility] OVARIAN PART / Unknown 06/21/2022 1:38 PM EST 06/21/2022 1:38 PM EST Keli Eli MD PATHOLOGY/CYTOLOGY ORDERABLES [facility] [place] [address] [facility] [address] [address] * Specimen to Pathology (06/21/2022 1:38 PM EST) AP Specimen 06/21/2022 1:38 PM EST 06/21/2022 1:38 PM EST Narrative [facility] - 06/21/2022 1:38 PM EST Specimen requisition ordered. ??Separate Pathology report to follow Keli Eli MD PATHOLOGY/CYTOLOGY ORDERABLES [facility] [place] [address] * Non-Insulation Blanket Maker Final Report (06/21/2022 1:34 PM EST) Diagnosis Discussion [id number] ? Location: [facility]; [facility]; The signing pathologist has (i) examined the relevant preparation(s) for the specimen(s) and (ii) rendered or confirmed the diagnosis(es). . ? Non-Insulation Blanket Maker Final DIAGNOSIS Negative for Malignancy Electronically signed by: ?Nohemi YA, Flako Logan Verified: ??06/24/2022 14:45 ??Cytopathologis t Performed at: ??-[facility] Dept. of Pathology, [place] [address] Technology Internship: Liss Shepard MD, FCAP, ??CLIA Certificate: [id number] DISCUSSION Pelvic wash: Clusters of mesothelial cells [...] Cell Block 1. 06/24/2022 2:45 PM EST [facility] Pelvic Washing 06/21/2022 1: 34 PM EST 06/21/2022 1:34 PM EST Narrative Authorizing Provider Result Kareem Eli MD PATHOLOGY/CYTOLOGY ORDERABLES Performing Organization Address City/[facility]/ZIP Co de Phone Number [facility] [place], [place] [id number] [place] [address] [address] [address] [address] * Cytopathology Non-Gynecological (06/21/2022 1:34 PM EST) AP Specimen 06/21/2022 1:34 PM EST 06/21/2022 1:34 PM EST Narrative [facility] - 06/21/2022 1:34 PM EST Specimen requisition ordered. ??Separate Pathology report to follow Authorizing Provider Result Kareem Eli MD PATHOLOGY/CYTOLOGY ORDERABLES Performing Organization Address [facility] Co de Phone Number [facility] [place] [address] * POCT Glucose (06/21/2022 12:36 PM EST) Glucose, POC 68 65 - 199 mg/dL [facility] Comment: Supplemental ranges: <140 mg/dL before meals <180 mg/dL all other times of the day Blood 06/21/2022 12:3 6 PM EST 06/21/2022 12:36 PM EST Narrative Authorizing Provider Result Kareem Eli MD POINT OF CARE TEST ORDERABLES Performing Organization Address [facility] Co de Phone Number [facility] [place] [address] documented in this encounter Visit Diagnoses Not [...] Routine documented in this encounter Care Teams Transportation Clerk Relationship Specialty Start Date End Date Samantha Escalante APRN [address] [place] [address] PCP - General Family Medicine 10/06/17 documented as of this encounter
--- OUTSIDE RECORDS SUMMARY | 2024-05-25 14:12 | XMS_ITS | Encounter Summary ---
[place] [address] Care Team Providers Care Rolloff Driver Name Role Phone Samantha Escalante APRN Primary Care Provider [phone] Reason for Referral * Consultation (Routine) - Closed Specialty Diagnoses / Procedures Referred By Wai t Referred To Contact Obstetrics and Gynecology Diagnoses Cyst of right ovary Samantha Escalante APRN [address] [place] [address] [facility] Physical Medicine Teacher [address] [place] [id number] Referral ID Status Reason Start Date Expiration Date V isits Requested Visits Authorized [id number] Closed Consult, Test & Treat PCP Updated and/or Approved 04/19/2022 04/19/2023 6 6 Encounter Details Date Type Department Care Team (Late st Contact Info) Description 04/19/2022 Transcribe Orders eDH Incoming Referrals [phone] Samantha Escalante APRN [address] [place], [place] [address] Cyst of right ovary Social History Tobacco Use Types Packs/Day Years Used Date Smoking Tobacco: Former Smokeless Tobacco: Never Sex and Gender Information Value Date Recorded Sex Assigned at Not on file Gender Identity Not on file Sexual Orientation Not on file documented as of this encounter Plan of Treatment Scheduled Referrals Name Type Priority Associated Diagnoses Orde r Schedule Referral to [facility] [employer] [facility] Out[facility] Referral Routine Cyst of right ovary Ordered: 04/19/2022 documented as of this encounter Visit Diagnoses Diagnosis Cyst of right ovary Other and unspecified ovarian cyst documented in this encounter Care Teams Rolloff Driver Relationship Specialty Start Date End Date Samantha Escalante APRN [address] [place] [address] PCP - General Family Medicine 10/06/17 documented as of this encounter
--- OUTSIDE RECORDS SUMMARY | 2024-05-25 14:12 | XMS_ITS | Encounter Summary ---
Author Organization [facility] [place] [address] Care Team Providers Care Cognos Developer Name Role Phone Samantha Escalante APRN Primary Care Provider Encounter Details Date Type Department Care Team (Late st Contact Info) Description 11/10/2022 External Results Pre-Admission Testing at [facility] [address] [place] [id number] Social History Tobacco Use Types Packs/Day Years [...] on filedocumented in this encounter Care Teams Cognos Developer Relationship Specialty Start Date End Date Samantha Escalante APRN [address] [place] [address] PCP - General Family Medicine 10/06/17 documented as of this encounter
--- OUTSIDE RECORDS SUMMARY | 2024-05-25 14:12 | XMS_ITS | Encounter Summary ---
Author Organization [facility] [place] [address] Care Team Providers Care Data Coder Operator Name Role Phone Samantha Escalante APRN Primary Care Provider [phone] Encounter Details Date Type Department Care Team (Latest Contact Info) Description 06/21/2022 11:06 AM EST - 06/21/2022 5:40 PM EST Hospital Encounter [place] [phone] Keli Eli MD [facility] [place] [address] Complex ovarian cyst (Primary Dx) Discharge Disposition: [...] PATIENT DISCHARGE INSTRUCTIONS Gynecologic Oncology phone number: [phone] (Nurse ext 4 then 4; appointment ext 1 then 4). After hours and on weekends please call hospital audiovisual equipment operator at [phone] and ask for Gynecologic Oncologist production sanitizer. Call your doctor if you develop: --A fever over 101 degrees --Severe pain --Increasing pain, redness, or discharge at any of your incisions --Heavy vaginal bleeding-soaking through a pad an hour Future Appointments and Orders Future Appointments and Orders Future Appointments Provider Department Dept Phone 07/09/2022 9:40 AM Keli Eli MD Gynecology Oncology at [facility] Arrive at: Envelope Press Operator Area 3K [phone] Activity level: Let your body guide you. [...] Eli MD - 06/21/2022 1:21 PM EST [facility] Operative Note Patient Name: Lynda Pedersen : [id number] MR#: [id number] Case Date: 06/21/2022 Surgeon: Surgeon(s) and Role: [...] CYTOPATHOLOGY NON-GYNECOLOGICAL Pelvic Washings for Permanent OR28 [id number] 06/21/2022 1:34 PM Pertinent clinical data and significant therapy: ADNEXAL MASS Clinical impression: Pelvic Washings Procedure Type: Cystoscopy Specimen Type: Pelvic wash SPECIMEN TO PATHOLOGY Please perform frozen section OR28 [address] ADNEXAL MASS Right Fallopian Tube and Right [...] endometrioma. ?? She was seen by her meteorological technician Dr. Plascencia ([facility]) who ordered tumor markers: Ca 125 7.2, AFP 6.4, bHCG 6.2. ?? I saw Estephanie for a visit in the general human relations professor clinic and subsequently referred her [...] TO PATHOLOGY Routine 06/21/2022 1:38 PM EST NON-TRAVEL JOURNALIST FINAL REPORT Routine 06/21/2022 1:34 PM EST CYTOPATHOLOGY NON-GYNECOLOGICAL Routine 06/21/2022 1:34 PM EST Lap, Rmv Adnexal Structure ([id number]) Yes 06/21/2022 12:49 PM EST ADNEXAL MASS POCT GLUCOSE Routine 06/21/2022 12:36 PM EST documented in this encounter Results * Surgical Pathology Report (06/21/2022 1:38 PM EST) Final Diagnosis [id number] ? Location: [facility]; [facility]; The signing pathologist has (i) examined the relevant preparation(s) for the specimen(s) and (ii) rendered or confirmed the diagnosis(es). . ?Surgical Pathology DIAGNOSIS Right fallopian tube and ovary (salpingo-oophore ctomy): ?? 1. Ovarian serous cystadenoma. ?? 2. Benign fallopian tube. CR-0 Electronically signed by: ?Yadiel YA, Steve Gautam Verified: ??06/28/2022 15:10 ??Pathologist Performed at: ??-[facility] Dept. of Pathology, [place] [id number] Aviation Manager: Liss Shepard MD, FCAP, ??CLIA Certificate: [id number] SPECIMEN(S) SUBMITTED A - Right fallopian tube [...] Fallopian Tube: 4.0 x 0.6 cm, fimbriated. Sales Agent [employer] sections in 7 cassettes as follows: ?A1: FS1: Focal thickened cyst lining ?A2: Right fallopian tube, fimbriae ?A3: Right fallopian tube, cross sections ?A4-A7: Right ovary cystic lesion ??njrs ?Frozen Section FROZEN SECTION DIAGNOSIS AFS1 - Right fallopian tube and right ovary: ? - Serous cystadenoma. 06/21/22 14:28/jlb Electronically signed by: ?Jana YA, Bessie Vela Verified: ??06/21/2022 14:30 ??Pathologist Performed at: ??-[facility] Dept. of Pathology, [place] [address] Aviation Manager: Liss Shepard MD, AP, ??CLIA Certificate: [id number] This intraoperative consultation should be interpreted as a preliminary diagnosis pending review of the entire specimen and special studies, if any. A final Surgical Pathology report will follow this preliminary Frozen Section report(s). 06/28/2022 3:10 PM EST [facility] OVARIAN PART / Unknown 06/21/2022 1:38 PM EST 06/21/2022 1:38 PM EST Keli Eli MD PATHOLOGY/CYTOLOGY ORDERABLES [facility] [place] [address] [facility] [place] [address] * Specimen to Pathology (06/21/2022 1:38 PM EST) AP Specimen 06/21/2022 1:38 PM EST 06/21/2022 1:38 PM EST Narrative [facility] - 06/21/2022 1:38 PM EST Specimen requisition ordered. ??Separate Pathology report to follow Keli Eli MD PATHOLOGY/CYTOLOGY ORDERABLES [facility] [place] [address] * Non-Customer Care Consultant Final Report (06/21/2022 1:34 PM EST) Diagnosis Discussion [id number] ? Location: [facility]; [facility]; The signing pathologist has (i) examined the relevant preparation(s) for the specimen(s) and (ii) rendered or confirmed the diagnosis(es). . ? Non-Customer Care Consultant Final DIAGNOSIS Negative for Malignancy Electronically signed by: ?Nohemi YA, Flako Logan Verified: ??06/24/2022 14:45 ??Cytopathologis t Performed at: ??-[facility] Dept. of Pathology, [place] [address] Aviation Manager: Liss Shepard MD, FCAP, ??CLIA Certificate: [id number] DISCUSSION Pelvic wash: Clusters of mesothelial cells [...] Cell Block 1. 06/24/2022 2:45 PM EST [facility] Pelvic Washing 06/21/2022 1: 34 PM EST 06/21/2022 1:34 PM EST Narrative Authorizing Provider Result Kareem Eli MD PATHOLOGY/CYTOLOGY ORDERABLES Performing Organization Address [facility]/ZIP Co de Phone Number [facility] [place] [place] [id number] [place] [address] [place] [address] * Cytopathology Non-Gynecological (06/21/2022 1:34 PM EST) AP Specimen 06/21/2022 1:34 PM EST 06/21/2022 1:34 PM EST Narrative [facility] - 06/21/2022 1:34 PM EST Specimen requisition ordered. ??Separate Pathology report to follow Authorizing Provider Result Kareem Eli MD PATHOLOGY/CYTOLOGY ORDERABLES Performing Organization Address [facility] Co de Phone Number [facility] [place] [address] * POCT Glucose (06/21/2022 12:36 PM EST) Glucose, POC 68 65 - 199 mg/dL [facility] Comment: Supplemental ranges: <140 mg/dL before meals <180 mg/dL all other times of the day Blood 06/21/2022 12:3 6 PM EST 06/21/2022 12:36 PM EST Narrative Authorizing Provider Result Kareem Eli MD POINT OF CARE TEST ORDERABLES Performing Organization Address [facility] Co de Phone Number [facility] [place] [address] documented in this encounter Visit Diagnoses Diagnosis [...] Procedure), Routine 1211 (Given - Provid er: Jonh Wallace RN) heparin (porcine) (5,000 units/1 mL) [...] Routine documented in this encounter Care Teams Data Coder Operator Relationship Specialty Start Date End Date Samantha Escalante APRN [address] [place] [address] PCP - General Family Medicine 10/06/17 documented as of this encounter
--- OUTSIDE RECORDS SUMMARY | 2024-05-25 14:12 | XMS_ITS | Encounter Summary ---
[place] [address] Care Team Providers Care Variety Saw Operator Name Role Phone Samantha Escalante APRN Primary Care Provider [phone] Encounter Details Date Type Department Care Team (Late st Contact Info) Description 05/24/2022 Telephone [place] [phone] Gerard Urena Social History Tobacco Use Types [...] on filedocumented in this encounter Care Teams Variety Saw Operator Relationship Specialty Start Date End Date Samantha Escalante APRN [address] [place] [address] PCP - General Family Medicine 10/06/17 documented as of this encounter
--- OUTSIDE RECORDS SUMMARY | 2024-05-25 14:12 | XMS_ITS | Clinical Summary ---
Author Organization [facility] [place] [address] Care Team Providers Care Client Success Director Name Role Phone Samantha Escalante CHACE Primary [...] 3rd or 4th+ generation cephalosporin. PAT Clinic CHIEF OF INTERNAL MEDICINE to place Allergy referral for formal penicillin allergy evaluation. Patient open to a phone consult from the allergy clinic. Zekpxck-Ebq-Pqt Reductase Inhibitors High 06/05/2019 Other reaction(s): MUSCLE [...] Decision Needed 1996 Breast Cancer screening 1996 Pneumoccocal Vaccine: 50+ (1 of 1 - PCV) 2006 Zoster vaccine (1 of 2) 2006 Bone Density Scan 2021 Pre-DM monitoring (HgbA1C or FBG) 06/11/2023 023 Covid-19 Vaccine ( - season) 2024 Influenza (Flu) vaccine (1 o f 1 - Influenza standard series) 01/08/2024 Diabetes Screening (HgbA1C or Glucose) Discontinued Medical Devices Implanted Type Area Credit And Collections Analyst Device Identifier Shelf Expiration Date Model / Serial / Lot Kit Graft Bone Sponge 8cc Bmp Syringe Lrg Granules Infuse ([id number]) (Autoreq) - [id number] Implanted:Qty : 1 on 11/17/2022 by Jacinto Apodaca MD at [facility] IMPLANTS Midline: Sacrum [employer] 12/06/2022 [id number] / / [id number] Screw Spinal 06y21ou Sacroiliac Thread Sld Ti ([id number]) (Autoreq) - [id number] Implanted:Qty : 1 on 11/17/2022 by Jacinto Apodaca MD at [facility] IMPLANTS Right: Sacrum [employer] 08/17/2029 [id number] / / [id number] Screw Spinal 69b74lz Sacroiliac Thread Sld Ti ([id number]) (Autoreq) - [id number] Implanted:Qty : 1 on 11/17/2022 by Jacinto Apodaca MD at [facility] IMPLANTS Right: Sacrum [employer] 03/26/2030 [id number] / / [id number] Screw Spinal 89q55qr Sacroiliac Thread Sld Ti ([id number]) (Autoreq) - [id number] Implanted:Qty : 1 on 11/17/2022 by Jacinto Apodaca MD at [facility] IMPLANTS Left: Sacrum [employer] 02/16/2030 [id number] / / [id number] Screw Spinal 85b90oo Sacroiliac Thread Sld Ti ([id number]) (Autoreq) - [id number] Implanted:Qty : 1 on 11/17/2022 by Jacinto Apodaca MD at [facility] IMPLANTS Left: Sacrum [employer] 10/23/2030 [id number] / / [id number] Explanted Type Area Credit And Collections Analyst Device Identifier Shelf Expiration Date Model / Serial / Lot Pin Fixation 150mm Ant Cerv Fusn Ss ([id number]) (Autoreq) - [id number] Explanted:Qty : 1 on 11/17/2022 by Jacinto Apodaca MD at [facility] IMPLANTS Midline: Sacrum [employer] 07/07/2024 [id number] / / [id number] Procedures Procedure Name Priority Date/Time Associated Diagnosis Comments COMPREHENSIVE METABOLIC PANEL Routine 06/11/2022 12:40 PM EST Pelvic mass in female from Last 3 Months or Most Recently Relevant to Health Maintenance Results * (ABNORMAL) Comprehensive metabolic panel (non-fasting) (06/11/2022 12:40 PM EST) Glucose 90 65 - 199 mg/dL [facility] Comment:Diabetes: >=200 mg/d L plus symptoms Blood Urea Nitrogen 11 8 - 18 mg/dL [facility] Creatinine 0.75 0.70 - 1.20 mg/dL [facility] Sodium 137 135 - 145 mmol/L [facility] Potassium 4.7 3.5 - 5.0 mmol/L [facility] Comment: Please note: ??Patients with WBC >100,000 may have falsely elevated Potassium levels. ??For accurate Potassium quantification in these patients send serum separator tube (gold top) for subsequent determinations. ??Contact the Clinical Chemistry Laboratory if there are any questions. Chloride 100 98 - 107 mmol/L [facility] Carbon Dioxide 26 22 - 31 mmol/L [facility] Anion Gap 11 5 - 15 mmol/L [facility] Calcium 10.3 8.5 - 10.5 mg/dL [facility] Protein, Total 7.8 6.1 - 8.0 g/dL [facility] Albumin 4.8 3.2 - 5.2 g/dL [facility] Aspartate Aminotransferase 38(H) 0 - 30 unit/L [facility] Alanine Aminotransferase 53(H) 0 - 30 unit/L [facility] Alkaline Phosphatase 54 35 - 105 unit/L [facility] Bilirubin, Total 0.3 0.2 - 1.3 mg/dL [facility] Est Glomerular Filtration Rate 88 >=60 mL/min/1. 73 m?? [facility] Comment: This patient's estimated GFR [...] Comment Spec In Lab Tonia lEi MD [place] [address] from Last 3 Months or Most Recently Relevant to Health Maintenance Advance Directives Documents on File Type Date Recorded Patient Customer Specialist Expl anation Advance Directives and Livin g Will 06/23/2022 12:13 PM 07/16/21 Care Teams Client Success Director Relationship Specialty Start Date End Date Samantha Escalante APRN [address] [place] [address] PCP - General Family Medicine 10/06/17
--- OUTSIDE RECORDS SUMMARY | 2024-05-25 14:12 | XMS_ITS | Encounter Summary ---
Author Organization [facility] [place] [address] Care Team Providers Care Hosiery Repairer Name Role Phone Samantha Escalante APRN Primary Care Provider [phone] Reason for Visit * Reason Comments Follow-up Encounter Details Date Type Department Care Team (Late st Contact Info) Description 10/02/2021 4:45 PM EDT Office Visit Dermatology at [address] [address] Willard Parra MD [address] [facility] [place] [address] Encounter for post surgical wound check Social [...] check documented in this encounter Care Teams Hosiery Repairer Relationship Specialty Start Date End Date Samantha Escalante APRN [address] [facility] 1 [place] [address] PCP - General Family Medicine 10/06/17 documented as of this encounter
--- OUTSIDE RECORDS SUMMARY | 2024-05-25 14:12 | XMS_ITS | Encounter Summary ---
Author Organization [facility] Address [facility] [place] [address] Care Team Providers Care Casting Room Operator Name Role Phone Samantha Escalante APRN [...] Expiration Date Visits Re quested Visits Authorized [id number] 1 1 Encounter Details Date Type Department Care Team (Late st Contact Info) Description 08/05/2021 2:41 PM EDT Anesthesia [place] [address] Ming Bull, WEB ADMINISTRATOR DR [place] [address] Tim Wu, WEB ADMINISTRATOR [place] [address] Anesthesia Record Procedure Summary Procedure Name Responsible Anesthesiologist Anesthesia Start Time Anesthesia Stop Time LAMINECTOMY, FACETECTOMY & FORAMINOTOMY,LUMBAR, ONE LEVEL (WRVU 15.37) (Right: Spine Lumbar) Ming Bull WEB ADMINISTRATOR 08/05/21 1441 08/05/21 1614 Events Date Time [...] IV Line - Single Lumen 08/05/21; 1312; tvgx-kzm-mglopl catheter system; Anatomical Landmarks; 20 gauge; NUBIA [...] Time: 1600 08/05/21 1448 by Ming Bull, WEB ADMINISTRATOR 08/05/21 1600 by Ming Bull, WEB ADMINISTRATOR Incision 08/05/21; 1503; lowe r, Right, posterior; [...] Procedure Summary Date: 08/05/21 Room / Location: [facility] OR MAIN OR Anesthesia Start: 1441 Anesthesia [...] Other reaction(s): Rash, itching all over ??? Kgakfwl-Kgl-Pyg Reductase Inhibitors Other reaction(s): MUSCLE ACHES ??? [...] mg documented in this encounter Care Teams Casting Room Operator Relationship Specialty Start Date End Date Ava Samantha, IMPROVEMENT COORDINATOR [address] [place] [address] PCP - General Family Medicine 10/06/17 documented as of this encounter
--- OUTSIDE RECORDS SUMMARY | 2024-05-25 14:12 | XMS_ITS | Encounter Summary ---
[place] [address] Care Team Providers Care Fitness Leader Name Role Phone Samantha Escalante APRN Primary Care Provider Encounter Details Date Type Department Care Team (Late st Contact Info) Description 05/21/2022 Telephone Obstetrics [place] [phone] Liz Lind Social History Tobacco Use Types [...] on filedocumented in this encounter Care Teams Fitness Leader Relationship Specialty Start Date End Date Samantha Escalante APRN [address] [place] [address] PCP - General Family Medicine 10/06/17 documented as of this encounter
--- OUTSIDE RECORDS SUMMARY | 2024-05-25 14:12 | XMS_ITS | Encounter Summary ---
Author Organization [facility] [place] [address] Care Team Providers Care Gravity Prospector Name Role Phone Samantha Escalante APRN Primary [...] on filedocumented in this encounter Care Teams Gravity Prospector Relationship Specialty Start Date End Date Samantha Escalante APRN [address] [place], [place] [address] PCP - General Family Medicine 10/06/17 documented as of this encounter
--- OUTSIDE RECORDS SUMMARY | 2024-05-25 14:12 | XMS_ITS | Encounter Summary ---
Author Organization [facility] [place] [address] Care Team Providers Care Title I Paraprofessional Name Role Phone Samantha Escalante APRN Primary Care Provider Reason for Visit * Reason Comments Follow-up Encounter Details Date Type Department Care Team (Late st Contact Info) Description 09/21/2021 10:45 AM EDT Office Visit Dermatology at [address] [phone] Willard Parra MD [address] [facility], [place] [address] Dermatofibroma; Seborrheic keratoses; Seborrheic keratosis, inflamed Social [...] Patient knows that this will be an lgx-ic-chbvnv expense CC: Samantha Escalante APRN documented in this encounter Plan of Treatment Not on file documented as of this encounter Visit Diagnoses Diagnosis Dermatofibroma Benign neoplasm of skin, site unspecified Seborrheic keratoses Seborrheic keratosis, inflamed Inflamed seborrheic keratosis documented in this encounter Care Teams Title I Paraprofessional Relationship Specialty Start Date End Date Samantha Escalante APRN [address] [facility] 1 [place] [address] PCP - General Family Medicine 10/06/17 documented as of this encounter
--- OUTSIDE RECORDS SUMMARY | 2024-05-25 14:12 | XMS_ITS | Encounter Summary ---
Author Organization [facility] Address [facility] [place] [address] Care Team Providers Care Drying Oven Tender Name Role Phone Michelle Escalantelasophie BEVERLYN Primary Care Provider Encounter Details Date Type Department Care Team (Late st Contact Info) Description 06/21/2022 Interpretation Only Radiology [address] [facility] [address] Unknown None Social History Tobacco Use Types [...] on filedocumented in this encounter Care Teams Drying Oven Tender Relationship Specialty Start Date End Date Adjovu, Samantha, ATTENDANT CHILD ACTIVITY [address] [place] [address] PCP - General Family Medicine 10/06/17 documented as of this encounter
--- OUTSIDE RECORDS SUMMARY | 2024-05-25 14:12 | XMS_ITS | Encounter Summary ---
Author Organization [facility] [place] [address] Care Team Providers Care Auto Mechanics Instructor Name Role Phone Samantha Escalante APRN Primary Care Provider Encounter Details Date Type Department Care Team (Late st Contact Info) Description 06/23/2022 Telephone [place] [phone] Kristin Mattson RN Social History Tobacco Use [...] for Bactrim DS was sent to the [facility] in [place]. Informed patient that she will be taking this twice daily for 7 days. Advised patient to take a picture of herincisions later today with the help of her granddaughter so that we can compare the redness in caseit increases. Patient verbalized understanding and will take a picture later today. She will pick up man her antibiotics and start taking these. She [...] she would like this sent to [facility] in [place], [place]. documented in this encounter Plan of Treatment Not on file documented as of this encounter Visit Diagnoses Not on filedocumented in this encounter Care Teams Auto Mechanics Instructor Relationship Specialty Start Date End Date Samantha Escalante APRN [facility] [address] [place] [address] PCP - General Family Medicine 10/06/17 documented as of this encounter
--- OUTSIDE RECORDS SUMMARY | 2024-05-25 14:12 | XMS_ITS | Encounter Summary ---
Author Organization [facility] Address [facility] [place] [address] Care Team Providers Care Supervisor Air Conditioning Installer Name Role Phone Samantha Escalante APRN Primary Care Provider Reason for Visit * Auth/Cert (Routine) Specialty Diagnoses / Procedures Referred By Wai del castillo Referred To Contact Diagnoses BILATERAL SI JOINT DYSFUNCTION Procedures PRO ARTHRODESIS SACROILIAC JOINT PERCUTANEOUS Jacinto Apodaca MD [address] [place] [address] Referral ID Status Reason Start Date Expiration Date Visits Re quested Visits Authorized [id number] 10/26/2022 1 1 Encounter Details Date Type Department Care Team (Late st Contact Info) Description 11/17/2022 11:55 AM EDT Ancillary Procedure Radiology Xray at [facility] [address] [place] [phone] Social History Tobacco Use Types Packs/Day Years Used Date Smoking Tobacco: Former Cigarettes 1 45 1 973 - 2017 Smokeless Tobacco: Never Alcohol Use Standard Drinks/Week Comments Never 0 (1 standard drink = 0.6 oz pur e alcohol) [facility] Inpatient Questions Answer Date Recorded Does [...] filedocumented in this encounter Care Teams Supervisor Air Conditioning Installer Relationship Specialty Start Date End Date Samantha Escalante APRN [address] [place] [address] [address] [place] [address] PCP - General Family Medicine 10/06/17 documented as of this encounter
--- OUTSIDE RECORDS SUMMARY | 2024-05-25 14:12 | XMS_ITS | Encounter Summary ---
Author Organization [facility] [place] [address] Care Team Providers Care Head Mixer Name Role Phone Samantha Escalante APRN Primary Care Provider [phone] Encounter Details Date Type Department Care Team [...] on filedocumented in this encounter Care Teams Head Mixer Relationship Specialty Start Date End Date Samantha Escalante APRN [address] [place], [place] [address] PCP - General Family Medicine 10/06/17 documented as of this encounter
--- OUTSIDE RECORDS SUMMARY | 2024-05-25 14:12 | XMS_ITS | Encounter Summary ---
[place] [address] Care Team Providers Care Ball Winder Name Role Phone Samantha Escalante APRN Primary Care Provider Encounter Details Date Type Department Care Team (Late st Contact Info) Description 06/23/2022 Orders Only [place] [address] Kristin Mattson RN Incisional infection Social History [...] infection documented in this encounter Care Teams Ball Winder Relationship Specialty Start Date End Date Samantha Escalante APRN [address] [place], [place] [address] PCP - General Family Medicine 10/06/17 documented as of this encounter
--- OUTSIDE RECORDS SUMMARY | 2024-05-25 14:12 | XMS_ITS | Encounter Summary ---
Author Organization [facility] [place] [address] Care Team Providers Care Rubber And Pounder Name Role Phone Samantha Escalante CHACE Primary Care Provider Encounter Details Date Type Department Care Team (Late st Contact Info) Description 06/11/2022 11:30 AM EST Clinical [place] [address] Social History Tobacco Use Types Packs/Day Years [...] 3rd or 4th+ generation cephalosporin. PAT Clinic MOLD STAMPER to place Allergy referral for formal penicillin allergy evaluation. Patient open to a phone consult from the allergy clinic. PLAN: Testing: Blood work + T&S Procedure date: 07/05 Alcira documented in this encounter Plan of Treatment Not on file documented as of this encounter Visit Diagnoses Not on filedocumented in this encounter Care Teams Rubber And Pounder Relationship Specialty Start Date End Date Samantha Escalante APRN [address] [place] [address] [address] [facility] 1 [place] [address] PCP - General Family Medicine 10/06/17 documented as of this encounter
--- OUTSIDE RECORDS SUMMARY | 2024-05-25 14:12 | XMS_ITS | Encounter Summary ---
Author Organization [facility] [place] [address] Care Team Providers Care General Merchandise Manager Name Role Phone Samantha Escalante APRN Primary Care Provider [phone] Reason for Visit * Reason Comments Follow-up Urgent visit * Consultation (Urgent) - Closed Specialty Diagnoses / Procedures Referred By Contac t Referred To Contact Gynecology Oncology Diagnoses Adnexal mass Silvana Moon MD [facility] OBSTETRICS [place] [address] Tonia Eli MD [facility] [place] [address] Referral ID Status Reason Start Date Expiration Date V isits Requested Visits Authorized [id number] Closed Consult, Test & Treat 05/24/2022 05/24/2023 1 1 Encounter Details Date Type Department Care Team (Late st Contact Info) Description 06/11/2022 10:00 AM EST Office Visit [place] [address] Tonia Eli MD [facility] [place] [address] Pelvic mass in female (Primary Dx); Carcinoma [...] 10:00 AM EST Division [place] [address] Gynecologic Oncology Clinic New Patient Visit Reason for visit: Complex adnexal cyst, referred by Silvana Moon MD [facility] DR OBSTETRICS & [place] [address] Problem List Patient Active Problem List Diagnosis [...] an endometrioma. She was seen by her oil painter Dr. Plascencia ([facility]) who ordered tumor markers: Ca 125 7.2, AFP 6.4, bHCG 6.2. I saw Estephanie for a visit in the general coater operator insulation board clinic and subsequently referred her here for [...] Social history: She is . Lives in [place], [place]. 83yo woman who is renting a [...] Other reaction(s): Rash, itching all over ??? Xfgchsf-Des-Zge Reductase Inhibitors Other reaction(s): MUSCLE ACHES ??? Codeine Phosphate CIS - Nausea/Vomiting ??? Penicillins CIS - Rash [facility] Penicillin Allergy Risk Assessment 06/11/2022: Low risk penicillin allergy. OK to receive full dose of cefazolin, cefuroxime, or any 3rd or 4th+ generation cephalosporin. [facility] Clinic OCCUPATIONAL THERAPY AIDES TEACHER to place Allergy referral for formal penicillin [...] Oncology clinic today. I was present as retanned leather roller for the sensitive parts of her examination. DARIANA Leiva documented in this encounter Plan of Treatment Not on file documented as of this encounter Results * Carbohydrate Antigen 19-9 (06/11/2022 12:40 PM EST) CA 19-9 7.4 <=35.0 u/ml [facility] Comment: This result was generated using a Jose E La immunoassay. ??Results obtained from other methods or manufacturers cannot be used interchangeably with this method. Blood 06/11/2022 12:4 0 PM EST 06/11/2022 12:54 PM EST Narrative Resulting Agency Comment Spec In Lab Tonia Eli MD CHEMISTRY ORDERABL ES [facility] [place] [address] * CEA (06/11/2022 12:40 PM EST) Carcinoembryonic Antigen 0.7 <=3.8 ng/mL [facility] Comment: Reference range: ??(20-69 years): Non-smoker: [...] Lab Tonia Eli MD CHEMISTRY ORDERABL ES [facility] [address] [facility] [address] [place] [address] * (ABNORMAL) Comprehensive metabolic panel (non-fasting) (06/11/2022 12:40 PM EST) Glucose 90 65 - 199 mg/dL [facility] Comment:Diabetes: >=200 mg/d L plus symptoms Blood Urea Nitrogen 11 8 - 18 mg/dL [facility] Creatinine 0.75 0.70 - 1.20 mg/dL [facility] Sodium 137 135 - 145 mmol/L [facility] Potassium 4.7 3.5 - 5.0 mmol/L [facility] Comment: Please note: ??Patients with WBC >100,000 may have falsely elevated Potassium levels. ??For accurate Potassium quantification in these patients send serum separator tube (gold top) for subsequent determinations. ??Contact the Clinical Chemistry Laboratory if there are any questions. Chloride 100 98 - 107 mmol/L [facility] Carbon Dioxide 26 22 - 31 mmol/L [facility] Anion Gap 11 5 - 15 mmol/L [facility] Calcium 10.3 8.5 - 10.5 mg/dL [facility] Protein, Total 7.8 6.1 - 8.0 g/dL [facility] Albumin 4.8 3.2 - 5.2 g/dL [facility] Aspartate Aminotransferase 38(H) 0 - 30 unit/L [facility] Alanine Aminotransferase 53(H) 0 - 30 unit/L [facility] Alkaline Phosphatase 54 35 - 105 unit/L [facility] Bilirubin, Total 0.3 0.2 - 1.3 mg/dL [facility] Est Glomerular Filtration Rate 88 >=60 mL/min/1. 73 m?? 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
--- OUTSIDE RECORDS SUMMARY | 2024-05-25 14:12 | XMS_ITS | Encounter Summary ---
Author Organization [facility] [place] [address] Care Team Providers Care Language And Literature Division Chair Name Role Phone Samantha Escalante APRN Primary Care Provider Reason for Referral * Consultation (Urgent) - Closed Specialty Diagnoses / Procedures Referred By Contac t Referred To Contact Gynecology Oncology Diagnoses Adnexal mass Silvana Moon MD [facility] DR OBSTETRICS & [place] [address] Tonia Eli MD [facility] [place] [address] Referral ID Status Reason Start Date Expiration Date V isits Requested Visits Authorized [id number] Closed Consult, Test & Treat 05/24/2022 05/24/2023 1 1 Reason for Visit * Reason Comments Establish Care Adnexal mass * Consultation (Routine) - Closed Specialty Diagnoses / Procedures Referred By Contac t Referred To Contact Obstetrics and Gynecology Diagnoses Cyst of right ovary Samantha Escalante APRN [address] [place] [address] [facility] Building Materials Sales Attendant [address] [place] [address] Referral ID Status Reason Start Date Expiration Date V isits Requested Visits Authorized [id number] Closed Consult, Test & Treat PCP Updated and/or Approved 04/19/2022 04/19/2023 6 6 Encounter Details Date Type Department Care Team (Late st Contact Info) Description 05/24/2022 3:20 PM EST Office Visit Obstetrics [place] [address] Silvana Moon MD Adnexal mass (Primary Dx); S/P laparoscopic hysterectomy; [...] Pedersen Referring provider: Samantha Escalante APRN [address] [facility] [address] [facility] 1 [place] [address] Chief Complaint Patient presents with ??? Establish Care Adnexal mass HPI: Lynda Hummel is a 66 y.o. para 3 postmenopausal female presenting in referral with a complex adnexal mass. Pt presents with her granddaughter. 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 She was seen by her PCP at [facility] for a routine visit 04/2022 and [...] free fluid. She was seen by her successfactors consultant Dr. Plascencia ([facility]) who ordered blood work (on granddaughter's phone): Ca 125 7.2, AFP 6.4, beta hCG 6.2 and she was s ubsequently referred here for further evaluation and management. Of note, she is s/p laparoscopic hysterectomy and LSO at the age of 24 for endometriosis/endometrioma ([place], [place]). She recently underwent L5-S1 laminectomy 07/2021. [...] UA which was negative. Denies vaginal bleeding. ear nose throat surgeon history: Gender identity: female Pronouns: she/hers Menarche: 13yo Menses: monthly lasting 7 days, fairly heavy at first, some cramping Menopause: hysterectomy age 24, vasomotor sx started late 30s and lasted 10 years Pregnancies: , x2, last was CS (had first baby at age 15) HPV vaccination: no Pap hx/tx: no h/o abnormal STI: HSV RACING SECRETARY AND HANDICAPPER surgeries: s/p hysterectomy, bilateral salpingectomy, left oophorectomy for endometriosis with endometrioma ([place]) Sexually active: not currently Other hormone [...] by Jacinto Apodaca MD at [facility] MAIN OR ??? TONSILLECTOMY AND [...] will provide a definitive diagnosis. Estephanie and Tonya discussed that this procedure would best be performed by a gynecologic oncologist in the event staging procedures needed to be performed. Urgent referral placed. Reviewed s/s torsion and encouraged patient to call with any new or worsening symptoms while awaiting surgical consultation. Pt discussed with Dr. Lopez, attending ear nose throat surgeon. Silvana Moon MD PGY4 05/24/2022 * Grupo [...] organs documented in this encounter Care Teams Language And Literature Division Chair Relationship Specialty Start Date End Date Ava CHACE Singh [address] [place] [address] [address] [facility] 1 [place] [address] PCP - General Family Medicine 10/06/17 documented as of this encounter
--- OUTSIDE RECORDS SUMMARY | 2024-05-25 14:12 | XMS_ITS | Encounter Summary ---
Author Organization [facility] [place] [address] Care Team Providers Care Administrative Clerk Name Role Phone Samantha Escalante APRN Primary Care Provider Encounter Details Date Type Department Care Team (Late st Contact Info) Description 04/29/2023 Ancillary Procedure Radiology Library at [facility] [place] [address] Samantha Escalante APRN [address] [place] [address] Social History Tobacco Use Types [...] MR Spine (04/29/2023 12:00 AM EST) Narrative [facility] - 05/04/2023 9:04 AM EST This exam is auto-finalizing. It's purpose is for storage only. Samantha Escalante APRN IMG FILM LIBRARY OR DERABLES Performing Organization Address City/State/[facility] Co de Phone Number [place], [place] documented in this encounter Visit Diagnoses Not on filedocumented in this encounter Care Teams Administrative Clerk Relationship Specialty Start Date End Date Samantha Escalante APRN [address] [place] [address] PCP - General Family Medicine 10/06/17 documented as of this encounter
--- OUTSIDE RECORDS SUMMARY | 2024-05-25 14:12 | XMS_ITS | Encounter Summary ---
Author Organization [facility] [place] [address] Care Team Providers Care Pit Tanner Name Role Phone Samantha Ecsalante APRN Primary Care Provider Encounter Details Date Type Department Care Team (Latest Contact Info) Description 06/11/2022 12:00 PM EST Laboratory [place] [address] Pelvic mass in female Social History Tobacco [...] 12:40 PM EST) T&S only valid at [facility] LABORATORY Comment:This Type and Screen result is only valid at the [facility] Blood 06/11/2022 12:4 0 PM EST 06/11/2022 12:45 PM EST Narrative Resulting Agency Comment Spec In Lab Tonia Eli MD BLOOD BANK LAB ORD ERABLES Performing Organization Address City/[facility]/ZIP Co de Phone Number [facility] [place] [address] * ABORH Recheck Status (06/11/2022 12:40 PM EST) ABORH Recheck Order Order Placed [facility] ABORH Type Recheck Complete [facility] Blood 06/11/2022 12:4 0 PM EST 06/11/2022 12:45 PM EST Narrative Resulting Agency Comment Spec In Lab Tonia Eli MD BLOOD BANK LAB ORD ERABLES [facility] [place] [address] * (ABNORMAL) Differential, Automated (06/11/2022 12:40 PM EST) Neutrophil % 49.8 % [facility] Neutrophil Absolute 3.44 1.70 - 6.10 x10(3)/[facility] LABORATORY Lymph % 37.2 % [facility] Lymphocytes Abs 2.6 0.9 - 3.2 x10(3)/[facility] LABORATORY Monocyte % 9.4 % [facility] Monocyte Abs 0.6 0.3 - 0.9 x10(3)/[facility] LABORATORY Eos % 1.5 % [facility] Eosinophils Abs 0.1 0.0 - 0.4 x10(3)/[facility] LABORATORY Basophil % 1.2 % [facility] Baso Absolute 0.1 0.0 - 0.1 x10(3)/[facility] LABORATORY Immature Gran % 0.90 % [facility] Comment: Immature granulocytes(IG's)percentage and absolute count will include metamyelocytes, myelocytes, and promyelocytes. Blood smears from CBCs yielding IG's will be scanned manually for concordance. If this scan disagrees with the automated IG or if promyelocytes are noted, a manual differential will be performed. Immature Gran Absolute 0.06(H) 0.00 - 0.04 x10(3)/[facility] LABORATORY Blood 06/11/2022 12:4 0 PM EST 06/11/2022 12:54 PM EST Narrative Resulting Agency Comment Spec In Lab Tonia Eli MD HEMATOLOGY ORDERAB LES [facility] [place] [address] * Hemogram (06/11/2022 12:40 PM EST) White Blood Cell 6.9 4.0 - 9.5 x10(3)/[facility] LABORATORY Red Blood Cell 4.84 4.00 - 5.21 x10(6)/[facility] LABORATORY Hemoglobin 14.0 11.7 - 15.5 g/dL [facility] Hematocrit 42.9 35.7 - 45.8 % [facility] Mean Cell Volume 88.6 82.6 - 94.4 fL [facility] Mean Cell Hemoglobin 28.9 27.1 - 32.0 pg [facility] Mean Cell Hemoglobin Concentration 32.6 31.7 - 35.0 g/dL [facility] Platelet 283 145 - 357 x10(3)/[facility] LABORATORY RDW Standard Deviation 44.7 37.0 - 46.0 fL [facility] RDW coefficient of variation 13.7 11.5 - 14.1 % [facility] Mean Platelet Volume 9.5 7.6 - 12.9 fL [facility] NRBC% auto 0.0 % [facility] LABOR[facility] NRBC Absolute 0.000 0.000 - 0.000 x10(3)/[facility] LABORATORY Blood 06/11/2022 12:4 0 PM EST 06/11/2022 12:54 PM EST Narrative Resulting Agency Comment Spec In Lab Tonia Eli MD HEMATOLOGY ORDERAB LES Performing Organization Address City/[facility]/ZIP Co de Phone Number [facility] [place] [address] * Antibody screen (06/11/2022 12:40 PM EST) Pathologist [facility] Ab Screen Interp Negative [facility] Expires at 2359 on: 06/24/2022 [facility] Comment: Corrected from 07/08/22 0:00:00 EST [Unknown] on 06/15/22 14:20:48 EST by Dusty Dc Blood 06/11/2022 12:4 0 PM EST 06/11/2022 12:45 PM EST Narrative Resulting Agency Comment Spec In Lab Tonia Eli MD BLOOD BANK LAB ORD ERABLES Performing Organization Address City/[facility]/ZIP Co de Phone Number [facility] [place] [address] * ABO/Rh Typing (06/11/2022 12:40 PM EST) Pathologist [facility] ABORH Type O Pos [facility] Blood 06/11/2022 12:4 0 PM EST 06/11/2022 12:45 PM EST Narrative Resulting Agency Comment Spec In Lab Tonia Eli MD BLOOD BANK LAB ORD ERABLES [facility] [place] [address] * (ABNORMAL) Comprehensive metabolic panel (non-fasting) (06/11/2022 12:40 PM EST) Glucose 90 65 - 199 mg/dL [facility] Comment:Diabetes: >=200 mg/d L plus symptoms Blood Urea Nitrogen 11 8 - 18 mg/dL [facility] Creatinine 0.75 0.70 - 1.20 mg/dL [facility] Sodium 137 135 - 145 mmol/L [facility] Potassium 4.7 3.5 - 5.0 mmol/L [facility] Comment: Please note: ??Patients with WBC >100,000 may have falsely elevated Potassium levels. ??For accurate Potassium quantification in these patients send serum separator tube (gold top) for subsequent determinations. ??Contact the Clinical Chemistry Laboratory if there are any questions. Chloride 100 98 - 107 mmol/L [facility] Carbon Dioxide 26 22 - 31 mmol/L [facility] Anion Gap 11 5 - 15 mmol/L [facility] Calcium 10.3 8.5 - 10.5 mg/dL [facility] Protein, Total 7.8 6.1 - 8.0 g/dL [facility] Albumin 4.8 3.2 - 5.2 g/dL [facility] Aspartate Aminotransferase 38(H) 0 - 30 unit/L [facility] Alanine Aminotransferase 53(H) 0 - 30 unit/L [facility] Alkaline Phosphatase 54 35 - 105 unit/L [facility] Bilirubin, Total 0.3 0.2 - 1.3 mg/dL [facility] Est Glomerular Filtration Rate 88 >=60 mL/min/1. 73 m?? [facility] Comment: This patient's estimated [...] MD CHEMISTRY ORDERABL ES Performing Organization Address [facility] Co de Phone Number [facility] [place] [address] * CEA (06/11/2022 12:40 PM EST) Carcinoembryonic Antigen 0.7 <=3.8 ng/mL [facility] Comment: Reference range: ??(20-69 [...] MD CHEMISTRY ORDERABL ES Performing Organization Address [facility] Co de Phone Number [facility] [place] [address] * Carbohydrate Antigen 19-9 (06/11/2022 12:40 PM EST) CA 19-9 7.4 <=35.0 u/ml [facility] Comment: This result was generated using a Jose E La immunoassay. ??Results obtained from other methods or manufacturers cannot be used interchangeably with this method. Blood 06/11/2022 12:4 0 PM EST 06/11/2022 12:54 PM EST Narrative Resulting Agency Comment Spec In Lab Tonia Eli MD CHEMISTRY ORDERABL ES [facility] [place] [address] documented in this encounter Visit Diagnoses Diagnosis Pelvic mass in female Abdominal or pelvic swelling, mass or lump, unspecified site documented in this encounter Care Teams Pit Tanner Relationship Specialty Start Date End Date Samantha Escalante APRN [address] [place] [address] PCP - General Family Medicine 10/06/17 documented as of this encounter
--- OUTSIDE RECORDS SUMMARY | 2024-05-25 14:12 | XMS_ITS | Encounter Summary ---
[facility] [place] [address] Care Team Providers Care Civilian Jail Officer Name Role Phone Samantha Escalante APRN Primary [...] on filedocumented in this encounter Care Teams Civilian Jail Officer Relationship Specialty Start Date End Date Samantha Escalante APRN [address] [place] [address] PCP - General Family Medicine 10/06/17 documented as of this encounter
--- OUTSIDE RECORDS SUMMARY | 2024-05-25 14:12 | XMS_ITS | Encounter Summary ---
Author Organization [facility] [place] [address] Care Team Providers Care Foot Piece Assembler Name Role Phone Samantha Escalante APRN Primary Care Provider Reason for Visit * Reason Comments Post Op Encounter Details Date Type Department Care Team (Late st Contact Info) Description 07/09/2022 9:40 AM EST Office Visit [place] [id number] Keli Forde MD [facility] [place] [address] Complex ovarian cyst Social History Tobacco Use [...] 9:40 AM EST Division [place] [address] Postoperative Visit: Patient Active Problem List Diagnosis [...] Gautam Verified: ??06/28/2022 15:10 ??Pathologist Performed at: ??-[facility] Dept. of Pathology, [place] [address] Yarn Inspector: Liss Shepard MD, AP, ??CLIA Certificate: [id number] Assessment and Plan: Lynda Pedersen is a [...] cyst documented in this encounter Care Teams Foot Piece Assembler Relationship Specialty Start Date End Date Samantha Escalante APRN [address] [place] [address] [address] [facility] [address] [place] [address] PCP - General Family Medicine 10/06/17 documented as of this encounter
--- OUTSIDE RECORDS SUMMARY | 2024-05-25 14:12 | XMS_ITS | Encounter Summary ---
Author Organization [facility] Address [facility] [place] [address] Care Team Providers Care Lodging Facilities Attendant Name Role Phone Samantha Escalatne APRN Primary Care Provider Reason for Visit [...] Expiration Date Visits Re quested Visits Authorized [id number] 1 1 Encounter Details Date Type Department Care Team (Late st Contact Info) Description 08/05/2021 2:21 PM EDT - 08/05/2021 4:36 PM EDT Surgery Operating Room Shelea Ac[address] [place] [address] Jacinto [place] [address] LAMINECTOMY, FACETECTOMY & FORAMINOTOMY,LUMBAR, ONE LEVEL (WRVU [...] six weeks after surgery with a Physician???s Mmi Teacher at the surgeon???s office. You will have [...] when to stop taking it. Only take xjhv-glk-dqfepnl or prescription medicine for pain, discomfort or [...] If you have any questions, please call [facility] Neurology and Neurosurgery at [phone], during business hours of Tuesday through Tuesday from 8:00 a.m. until 4:00 p.m. In case of emergency during non-business hours, please call the same main number and follow the prompts to page the neurosurgeon unit receptionist. SMOKING CESSATION INFORMATION: [place] QUITLINE: [place] QUITLINE: www.quitnet.com If you smoke, stop now! Smoking may impede healing. MAKE SURE YOU: Understand these instructions. Will seek medical care if you are feeling poor, or get worse. Will call the surgeon???s office with any questions or concerns at : [phone] Nursing information only: Original document to medical [...] Apodaca MD - 08/05/2021 3:03 PM EDT [facility] [place] [address] Patient Name: Lynda Pedersen : [id number] MR#: [id number] Case Date: 08/05/2021 Case Scheduled Time: 1421 Surgeon: Surgeon(s) and Role: * Jacinto Apodaca MD - Primary * Franki Mills PA - Physician Mmi Teacher Preoperative diagnosis: SPONDYLOSIS DDD Postoperative diagnosis: SPONDYLOSIS DDD Actual procedure: Right L5-S1 hemilaminectomy, medial facetectomy, lateral recess decompression, [id number], microsurgical discectomy. Use of the high- powered [...] the duration of the operative session. The pediatric physician assistant adequately prepped the operative site and [...] PM EDT Laminec/Facetect/Fo alissa, Lumbar 1 Seg (66636) 08/05/2021 2:41 PM EDT SPONDYLOSIS DDD documented [...] (Due) documented in this encounter Care Teams Lodging Facilities Attendant Relationship Specialty Start Date End Date Samantha Escalante APRN [address] [place] [address] PCP - General Family Medicine 10/06/17 documented as of this encounter
--- OUTSIDE RECORDS SUMMARY | 2024-05-25 14:12 | XMS_ITS | Encounter Summary ---
Author Organization [facility] [place] [address] Care Team Providers Care Immigration Inspector Name Role Phone Samantha Escalante APRN Primary Care Provider Encounter Details Date Type Department Care Team (Late st Contact Info) Description 01/26/2022 Ancillary Procedure Radiology at [facility] [address] [place] [address] Jacinto Apodaca MD [address] [place] [address] Social History Tobacco Use Types Packs/Day Years [...] is for storage only. Jacinto Apodaca MD [facility] FILM LIBRARY ORD ERABLES [place], [place] documented in this encounter Visit Diagnoses Not on filedocumented in this encounter Care Teams Immigration Inspector Relationship Specialty Start Date End Date Samantha Escalante APRN [address] [place] [address] PCP - General Family Medicine 10/06/17 documented as of this encounter
--- OUTSIDE RECORDS SUMMARY | 2024-05-25 14:12 | XMS_ITS | Encounter Summary ---
Author Organization [facility] [place] [address] Care Team Providers Care Metal Ceiling Builder Name Role Phone Samantha Escalante APRN Primary Care Provider Encounter Details Date Type Department Care Team (Late st Contact Info) Description 06/21/2022 12:49 PM EST Anesthesia Event [place] [address] Poly Singh MD [facility] [place] [address] Anesthesia Record Procedure Summary Procedure Name Responsible [...] questions and acknowledgement of understanding Alex Moon, CONVEX GRINDER OPERATOR 1336 Break/Relief Out 1448 Extubation/LMA Out 1448 [...] 1231; metacarpal vein (top of hand), right; ygps-tdv-sxwjnv catheter system; Anatomical Landmarks; 22 gauge; Kelsie [...] dorsal arch vein (top of hand), left; qqhz-fsl-hdjdbs catheter system; 18 gauge; Moon CONVEX GRINDER OPERATOR; 06/21/22; 1740 06/21/22 1300 by Poly Singh [...] Procedure Summary Date: 06/21/22 Room / Location: [facility] OR [address] [place] [address] MAIN OR Anesthesia Start: 1249 Anesthesia Stop: [...] shown include unvalidated device data. Patient Location: PACU/[facility] Level of Consciousness: Awake and Alert [...] 15.37) performed by Jacinto Apodaca MD at [facility] MAIN OR ??? TONSILLECTOMY AND ADENOIDECTOMY ??? UPPER GASTROINTESTINAL ENDOSCOPY Social History Tobacco Use ??? Smoking status: Former ??? Smokeless tobacco: Never Substance Use Topics ??? Alcohol use: Never Social History Substance and Sexual Activity Drug Use Never Allergies Allergen Reactions ??? Omeprazole Other reaction(s): Rash, itching all over ??? Qhaozwr-Ssf-Ypx Reductase Inhibitors Other reaction(s): MUSCLE ACHES ??? Codeine Phosphate CIS - Nausea/Vomiting ??? Penicillins CIS - Rash [facility] Penicillin Allergy Risk Assessment 06/11/2022: Low risk penicillin allergy. OK to receive full dose of cefazolin, cefuroxime, or any 3rd or 4th+ generation cephalosporin. PAT Clinic RISK MGR to place Allergy referral for formal penicillin [...] risks discussed with patient. Plan discussed with CONVEX GRINDER OPERATOR. Anesthesia Screening documented in this encounter Plan [...] mg documented in this encounter Care Teams Metal Ceiling Builder Relationship Specialty Start Date End Date Samantha Escalante APRN [address] [place] [address] PCP - General Family Medicine 10/06/17 documented as of this encounter
--- OUTSIDE RECORDS SUMMARY | 2024-05-25 14:12 | XMS_ITS | Encounter Summary ---
Author Organization [facility] [place] [address] Care Team Providers Care Crutching Contractor Name Role Phone Samantha Escalante APRN Primary Care Provider Reason for Visit * Auth/Cert (Routine) Specialty Diagnoses / Procedures Referred By Wai del castillo Referred To Contact Diagnoses BILATERAL SI JOINT DYSFUNCTION Procedures PRO ARTHRODESIS SACROILIAC JOINT PERCUTANEOUS Jacinto Apodaca MD [address] [facility] [place] [address] Referral ID Status Reason Start Date Expiration Date Visits Re quested Visits Authorized [id number] 10/26/2022 1 1 Encounter Details Date Type Department Care Team (Late st Contact Info) Description 11/17/2022 12:48 PM EDT Anesthesia Event Operating Room Sheela Holman [address] [place] [address] Ming Torres CRNA [facility] [place]ESTHESI[place] [address] Anesthesia Record Procedure Summary Procedure Name Responsible [...] basilic vein (medial side of arm), left; tdve-til-zpjpep catheter system; Anatomical Landmarks; 20 gauge; ES; [...] Procedure Summary Date: 11/17/22 Room / Location: [facility] OR MAIN OR Anesthesia Start: 1248 Anesthesia [...] Injection SI Joint 07/13/2022 Ming Maki MD [facility] RAD CT SCAN FINGER TRIGGER RELEASE L and R thumbs HYSTERECTOMY laparoscopic with LSO for endometriosis LIPOMA RESECTION LUMBAR DISC SURGERY PRO LAMINEC/FACETECT/FORAMIN, LUMBAR 1 SEG Right 08/05/2021 LAMINECTOMY, FACETECTOMY & FORAMINOTOMY,LUMBAR, ONE LEVEL (WRVU 15.37) performed by Jacinto Apodaca MD at [facility] MAIN OR PRO LAP, RMV ADNEXAL STRUCTURE N/A 06/21/2022 LAPAROSCOPY, REMOVAL OF ADNEXA (WRVU 11.35) performed by Tonia Eli MD at [facility] MAIN OR TONSILLECTOMY AND ADENOIDECTOMY UPPER GASTROINTESTINAL ENDOSCOPY Social History Tobacco Use Smoking status: Former Smokeless tobacco: Never Substance Use Topics Alcohol use: Never Social History Substance and Sexual Activity Drug Use Never Allergies Allergen Reactions Omeprazole Other reaction(s): Rash, itching all over Uegyxbl-Iki-Ton Reductase Inhibitors Other reaction(s): MUSCLE ACHES Codeine Phosphate CIS - Nausea/Vomiting Penicillins CIS - Rash PAT Penicillin Allergy Risk Assessment 06/11/2022: Low risk penicillin allergy. OK to receive full dose of cefazolin, cefuroxime, or any 3rd or 4th+ generation cephalosporin. PAT Clinic QUALITY LEAD to place Allergy referral for formal penicillin [...] mg documented in this encounter Care Teams Crutching Contractor Relationship Specialty Start Date End Date Samantha Escalante APRN [address] [place] [address] [address] [facility] [address] [place] [address] PCP - General Family Medicine 10/06/17 documented as of this encounter
--- OUTSIDE RECORDS SUMMARY | 2024-05-25 14:12 | XMS_ITS | Encounter Summary ---
Author Organization [facility] [place] [address] Care Team Providers Care Site Lead Name Role Phone Samantha Escalante APRN Primary Care Provider Encounter Details Date Type Department Care Team (Late st Contact Info) Description 04/15/2022 Ancillary Procedure Radiology Library [place] [address] Samantha Escalante APRN [address] [place] [address] Social History Tobacco Use Types [...] Ultrasound Study (04/15/2022 12:00 AM EST) Narrative [facility] - 04/20/2022 9:12 AM EST This exam is auto-finalizing. It's purpose is for storage only. Samantha Escalante APRN IMG FILM LIBRARY OR DERABLES [place], [place] documented in this encounter Visit Diagnoses Not on filedocumented in this encounter Care Teams Site Lead Relationship Specialty Start Date End Date Samantha Escalante APRN [address] [place] [address] PCP - General Family Medicine 10/06/17 documented as of this encounter
--- OUTSIDE RECORDS SUMMARY | 2024-05-25 14:13 | XMS_ITS | Encounter Summary ---
Author Organization [facility] Address [address] [place] [address] Care Team Providers Care Metal Roaster Name Role Phone ElaineSamantha worthington DELIA Primary Care Provider [phone] Encounter Details Date Type Department Care Team (Late st Contact Info) Description 11/02/2023 Lab Requisition [facility] Pathology & Laboratory Medicine - [facility] [address] [place] [address] Klever Mcneal MD [address] [place] [address], [address] [place], [place] [address] Iron deficiency anemia, unspecified Social History Tobacco [...] explore management options, if applicable. 11/03/2023 16:36 [facility] Final Diagnosis A. [...] POLYP, BIOPSY: - Hyperplastic polyp. 11/03/2023 16:36 [facility] Attestation By the signature below, the attending physician certifies that they have 1) personally conducted a gross and/or microscopic examination of the described specimen(s), and/or personally interpreted the results of laboratory testing of the described specimen(s), and 2) personally rendered or confirmed the above diagnosis. 11/03/2023 16:36 [facility] at 1636 Clinical History Anemia, Alford's esophagus, colon polyps, gastritis 11/03/2023 16:36 [facility] Gross Description A. [...] Emily Arron 11/03/2023 7:58 11/03/2023 16:36 EDT [facility] Performing Lab [facility] 11/03/2023 16:36 EDT [facility] Scanned Images 11/03/2023 16:36 EDT [facility] Tissue POLYP OF COLON [...] Mcneal MD PATHOLOGY ORDERABLES Final Resu lt [facility] [address] [place] [address] documented in this encounter Visit Diagnoses Diagnosis Iron deficiency anemia, unspecified documented in this encounter Care Teams Metal Roaster Relationship Specialty Start Date End Date Samantha Escalante NP [address] [place] [address] [address] [place] [phone] PCP - General 01/07/22 documented as of this encounter
--- OUTSIDE RECORDS SUMMARY | 2024-05-25 14:13 | XMS_ITS | Encounter Summary ---
Author Organization [facility] Address [address] [place] [address] Care Team Providers Care Steamfitter Supervisor Name Role Phone Rajat Roca MD Primary Care Provider [phone] Encounter Details Date Type Department Care Team (Late st Contact Info) Description 09/21/2017 Results Only [facility] [phone] Samantha Negron, DELIA [address] [place] [address] Social History Tobacco Use Types [...] ? GALINA VELIZ ? Accession #: ? [id number] ? : ? 1955 (Age: 61) ??F ?Collect Date: ? 09/21/2017 ? Location: ? [facility] ? Receive Date: ? 09/23/2017 ? Provider: SAMANTHA NEGRON PILLOWCASE TURNER Copy to: ? Final Report SPECIMEN ADEQUACY [...] for cervical or endocervical samples at the [facility]. It is not validated for vaginal samples as the test performance characteristics have not been evaluated. Credit issued. Sample has been sent to [facility] for HPV testing. Comments Document reviewed and electronically signed by: ? System Interface ? Report date: 10/04/2017 By the signature above, the attending physician certifies that he/she has personally conducted a gross and/or microscopic examination of the described specimens and rendered or confirmed the above diagnosis. End of Report [facility] 09/21/2017 09/23/2017 Samantha Negron PILLOWCASE TURNER PATHOLOGY ORDERABLES Final Re sult [facility] [address] [place] [address] documented in this encounter Visit Diagnoses Not on filedocumented in this encounter Care Teams Steamfitter Supervisor Relationship Specialty Start Date End Date Rajat Roca MD [address] [place] [address] PCP - General 04/20/16 01/06/22 documented as of this encounter
--- OUTSIDE RECORDS SUMMARY | 2024-05-25 14:13 | XMS_ITS | Encounter Summary ---
Author Organization [facility] Address [address] [place] [address] Care Team Providers Care Undertaker Assistant Name Role Phone Rajat Roca MD Primary Care Provider [phone] Samantha Escalante NP Primary Care Provider Encounter Details Date Type Department Care Team (Late st Contact Info) Description 03/28/2019 Lab Requisition [facility] Pathology & Laboratory Medicine - [facility] [address] [place] [address] Geovany Ibrahim MD [address] [place] [address] [address] [place], [place] [id number] Encounter for other general examination Social History [...] examination documented in this encounter Care Teams Undertaker Assistant Relationship Specialty Start Date End Date Rajat Roca MD [address] [facility] [place] [address] PCP - General 04/20/16 01/06/22 Samantha Escalante NP [address] [place] [address] [address] [place] [address] PCP - General 01/07/22 documented as of this encounter
--- OUTSIDE RECORDS SUMMARY | 2024-05-25 14:13 | XMS_ITS | Encounter Summary ---
Author Organization [facility] [place] [address] Care Team Providers Care Ammonia Solution Preparer Name Role Phone Samantha Escalante APRN Primary [...] Expiration Date Visits Re quested Visits Authorized [id number] 1 1 Encounter Details Date Type Department Care Team (Latest Contact Info) Description 08/05/2021 12:46 PM EDT - 08/05/2021 6:56 PM EDT Hospital Encounter Post Acute Care Unit at [facility] [address] [place] [address] Jacinto Apodaca MD [address] [place] [address] Lumbar spondylosis Discharge Disposition: Home Social History [...] six weeks after surgery with a Physician???s Licensed Embalmer Supervisor at the surgeon???s office. You will have [...] when to stop taking it. Only take ampi-kpg-mmfhyjp or prescription medicine for pain, discomfort or [...] If you have any questions, please call [facility] at [phone], during business hours of Tuesday through Tuesday from 8:00 a.m. until 4:00 p.m. In case of emergency during non-business hours, please call the same main number and follow the prompts to page the neurosurgeon information operator. SMOKING CESSATION INFORMATION: AL QUITLINE: IN QUITLINE: www.quitnet.com If you smoke, stop now! Smoking may impede healing. MAKE SURE YOU: Understand these instructions. Will seek medical care if you are feeling poor, or get worse. Will call the surgeon???s office with any questions or concerns at : [phone] Nursing information only: Original document to medical [...] Apodaca MD - 08/05/2021 3:03 PM EDT [facility] [place] [address] Patient Name: Lynda Pedersen : [id number] MR#: [id number] Case Date: 08/05/2021 Case Scheduled Time: 1421 Surgeon: Surgeon(s) and Role: * Jacinto Apodaca MD - Primary * Franki Mills PA - Physician Licensed Embalmer Supervisor Preoperative diagnosis: SPONDYLOSIS DDD Postoperative diagnosis: SPONDYLOSIS DDD Actual procedure: Right L5-S1 hemilaminectomy, medial facetectomy, lateral recess decompression, [id number], microsurgical discectomy. Use of the high- powered [...] in stable condition. Infection Bundle used? N/A Franik Mills PA-C worked under my direction for the duration of the operative session. The assistant passenger locomotive engineer adequately prepped the operative site and maintained [...] PM EDT Laminec/Facetect/Fo alissa, Lumbar 1 Seg ([id number]) 08/05/2021 2:41 PM EDT SPONDYLOSIS DDD documented [...] (Due) documented in this encounter Care Teams Ammonia Solution Preparer Relationship Specialty Start Date End Date Samantha Escalante APRN [address] [place] [address] PCP - General Family Medicine 10/06/17 documented as of this encounter
--- OUTSIDE RECORDS SUMMARY | 2024-05-25 14:13 | XMS_ITS | Encounter Summary ---
Author Organization [facility] Address [address] [place] [address] Care Team Providers Care Beater Worker Helper Name Role Phone Rajat Roca MD Primary Care Provider [phone] Samantha Escalante NP Primary Care Provider [phone] Encounter Details Date Type Department Care Team (Late st Contact Info) Description 03/28/2019 Lab Requisition [facility] Pathology & Laboratory Medicine - [facility] [address] [place] [address] Geovany Ibrahim MD [address] [place] [address] [place], [place] [id number] Encounter for other general examination Social History [...] X3, BIOPSY: - Hyperplastic polyps. 03/30/2019 9:36 [facility] at 0936 Diagnosis Comment Immunoperoxidase stains were performed on this case to further characterize the lesion. ANTIBODY(CLONE)(BLOCK ):RESULT H pylori (Rabbit Monoclonal (SP48), [place]) (B-1): Negative NOTE: One or more of [...] [facility] and/or by the referring laboratory. The [...] high complexity clinical laboratory testing. 03/30/2019 9:36 [facility] Clinical History History Alford's, history polyps. 03/30/2019 9:36 [facility] Attestation By the signature below, the attending physician certifies that they have personally conducted a gross and/or microscopic examination of the described specimens and rendered or confirmed the above diagnosis. 03/30/2019 9:36 [facility] at 0936 Gross Description [...] MIPARKER CHILD 03/28/2019 11:48 03/30/2019 9:36 EST [facility] Scanned Images 03/30/2019 9:36 EST [facility] Tissue SPECIMEN FROM RECTUM [...] Ibrahim MD PATHOLOGY ORDERABLES Fin al Result [facility] [address] [place] [address] documented in this encounter Visit Diagnoses Diagnosis Encounter for other general examination documented in this encounter Care Teams Beater Worker Helper Relationship Specialty Start Date End Date Rajat Roca MD [address] [place] [address] PCP - General 04/20/16 01/06/22 Samantha Escalante NP [address] [place] [address] PCP - General 01/07/22 documented as of this encounter
--- OUTSIDE RECORDS SUMMARY | 2024-05-25 14:13 | XMS_ITS | Referral Summary ---
Author Organization [facility] Address [address] [place] [address] Care Team Providers Care Residential Director Name Role Phone ElaineSamantha worthington DELIA Primary Care Provider [phone] Social History Tobacco Use Types Packs/Day Years [...] Plan of Treatment Not on file Insurance [facility] MEDICARE Care Teams Residential Director Relationship Specialty Start Date End Date Samantha Escalante NP [address] [place] [address] [address] [place] [address] PCP - General 01/07/22
--- OUTSIDE RECORDS SUMMARY | 2024-05-25 14:13 | XMS_ITS | Encounter Summary ---
Author Organization [facility] Address [address] [place] [address] Care Team Providers Care Associate Spa Director Name Role Phone Samantha Escalante NP Primary Care Provider [phone] Encounter Details Date Type Department Care Team (Late st Contact Info) Description 04/15/2022 Lab Requisition [facility] Pathology & Laboratory Medicine - [address] [address] Outr Resulting Lab, Provider Social History Tobacco [...] H. Pylori Negative Negative 04/19/2022 15:08 EST [facility] Feces SPECIMEN FROM RECTUM / Unknown 04/15/2022 4:00 EST 04/15/2022 21:21 EST Narrative [facility] - 04/19/2022 15:08 EST Results were obtained with the [employer] [facility]. us Provider Outr Resulting Lab MICROBIOLOGY - GENER AL ORDERABLES Final Result [facility] [address] [place] [address] documented in this encounter Visit Diagnoses Not on filedocumented in this encounter Care Teams Associate Spa Director Relationship Specialty Start Date End Date Samantha Escalante NP [address] [place] [address] [address] [place] [address] PCP - General 01/07/22 documented as of this encounter
--- OUTSIDE RECORDS SUMMARY | 2024-05-25 14:13 | XMS_ITS | Encounter Summary ---
[place] [address] Care Team Providers Care Industrial/Organizational Psychologist Name Role Phone Samantha Escalante APRN Primary Care Provider Reason for Referral * Diagnostic Test (Routine) - Closed Specialty Diagnoses / Procedures Referred By Wai t Referred To Contact Radiology Diagnoses Coronary artery disease, angina presence unspecified, unspecified vessel or lesion type, unspecified whether [place] or transplanted heart Procedures NM Pharmacologic Stress and Rest Myocardial Perfusion Samantha Escalante APRN [address] [place] [address] [place] [address] Referral ID Status Reason Start Date Expiration Date V isits Requested Visits Authorized [id number] Closed Specialty Service Requested 12/27/2019 06/23/2020 1 1 Reason for Visit * Diagnostic Test (Routine) - Closed Specialty Diagnoses / Procedures Referred By Wai t Referred To Contact Radiology Diagnoses Coronary artery disease, angina presence unspecified, unspecified vessel or lesion type, unspecified whether [place] or transplanted heart Procedures NM Pharmacologic Stress and Rest Myocardial Perfusion Samantha Escalante APRN [address] [place] [address] [place] [address] Referral ID Status Reason Start Date Expiration Date V isits Requested Visits Authorized [id number] Closed Specialty Service Requested 12/27/2019 06/23/2020 1 1 Encounter Details Date Type Department Care Team (Late st Contact Info) Description 04/01/2020 7:37 AM EST Hospital Encounter [place] [address] Ava, Samantha, DINKEY OPERATOR [address] [place], [place] [address] Coronary artery disease, angina presence unspecified, unspecified vessel or lesion type, unspecified whether [place] or transplanted heart Discharge Disposition: Home Social [...] gemfibrozil (LOPID) 600 mg tablet 10/28/2009 10/13/2020 [place]-3 Fatty Acids-Fish Oil (FISH OIL OMEGA 3-6-9) [...] unspecified vessel or lesion type, unspecified whether [place] or transplanted heart documented in this encounter [...] report, please contact the number below. Samantha Adjovu DINKEY OPERATOR IMG NM ORDERABLES documented in this encounter Visit Diagnoses Diagnosis Coronary artery disease, angina presence unspecified, unspecified vessel or lesion type, unspecified whether [place] or transplanted heart documented in this encounter [...] mCi documented in this encounter Care Teams Industrial/Organizational Psychologist Relationship Specialty Start Date End Date Samantha Escalante, DINKEY OPERATOR [address] [place] [address] [address] [place] [address] PCP - General Family Medicine 10/06/17 documented as of this encounter
--- OUTSIDE RECORDS SUMMARY | 2024-05-25 14:13 | XMS_ITS | Encounter Summary ---
[place] [address] Care Team Providers Care Campus Manager Name Role Phone Samantha Escalante APRN Primary Care Provider Reason for Visit * Diagnostic Test (Routine) - Closed Specialty Diagnoses / Procedures Referred By Wai t Referred To Contact Radiology Diagnoses Coronary artery disease, angina presence unspecified, unspecified vessel or lesion type, unspecified whether [place] or transplanted heart Procedures NM Pharmacologic Stress and Rest Myocardial Perfusion Samantha Escalante APRN [address] [place] [address] [place] [address] Referral ID Status Reason Start Date Expiration Date V isits Requested Visits Authorized [id number] Closed Specialty Service Requested 12/27/2019 06/23/2020 1 1 Encounter Details Date Type Department Care Team (Late st Contact Info) Description 04/01/2020 7:38 AM EST Hospital Encounter [place] [address] Samantha Escalante APRN [address] [place], [place] [address] Discharge Disposition: Home Social History Tobacco Use [...] gemfibrozil (LOPID) 600 mg tablet 10/28/2009 10/13/2020 [place]-3 Fatty Acids-Fish Oil (FISH OIL OMEGA 3-6-9) [...] unspecified vessel or lesion type, unspecified whether [place] or transplanted heart documented in this encounter [...] Arm documented in this encounter Care Teams Campus Manager Relationship Specialty Start Date End Date Kikearely Samantha, CHACE [address] [place] [address] PCP - General Family Medicine 10/06/17 documented as of this encounter
--- OUTSIDE RECORDS SUMMARY | 2024-05-25 14:13 | XMS_ITS | Encounter Summary ---
[place] [address] Care Team Providers Care Resawyer Name Role Phone Samantha Escalante APRN Primary Care Provider Reason for Referral * Diagnostic Test (Routine) - Closed Specialty Diagnoses / Procedures Referred By Wai del castillo Referred To Contact Radiology Diagnoses Coronary artery disease, angina presence unspecified, unspecified vessel or lesion type, unspecified whether [place] or transplanted heart Procedures NM Pharmacologic Stress CT Component Samantha Escalante APRN [address] [place] [address] [place] [address] Referral ID Status Reason Start Date Expiration Date V isits Requested Visits Authorized [id number] Closed Specialty Service Requested 12/27/2019 06/23/2020 1 1 Reason for Visit * Diagnostic Test (Routine) - Closed Specialty Diagnoses / Procedures Referred By Wai del castillo Referred To Contact Radiology Diagnoses Coronary artery disease, angina presence unspecified, unspecified vessel or lesion type, unspecified whether [place] or transplanted heart Procedures NM Pharmacologic Stress CT Component Samantha Escalante APRN [address] [place] [address] [place] [address] Referral ID Status Reason Start Date Expiration Date V isits Requested Visits Authorized [id number] Closed Specialty Service Requested 12/27/2019 06/23/2020 1 1 Encounter Details Date Type Department Care Team (Late st Contact Info) Description 04/01/2020 7:39 AM EST - 04/01/2020 11:59 PM EST Hospital Encounter [place] [address] Samantha Escalante, TECHNICIAN [address] [place], [place] [address] Coronary artery disease, angina presence unspecified, unspecified vessel or lesion type, unspecified whether [place] or transplanted heart Discharge Disposition: Home Social [...] gemfibrozil (LOPID) 600 mg tablet 10/28/2009 10/13/2020 [place]-3 Fatty Acids-Fish Oil (FISH OIL OMEGA 3-6-9) [...] unspecified vessel or lesion type, unspecified whether [place] or transplanted heart documented in this encounter [...] ? Electronically signed by: Silvestre Salmeron MD, [facility] ([phone]), at 04/01/2020 11:47 AM Procedure Note Silvestre [...] below. Electronically signed by: Silvestre Salmeron MD, [facility]([phone]), at 04/01/2020 11:47 AM Samantha Escalante TECHNICIAN IMG NM ORDERABLES documented in this encounter Visit Diagnoses Diagnosis Coronary artery disease, angina presence unspecified, unspecified vessel or lesion type, unspecified whether [place] or transplanted heart documented in this encounter Care Teams Resawyer Relationship Specialty Start Date End Date Samantha Escalante APRN [address] [place] [address] PCP - General Family Medicine 10/06/17 documented as of this encounter
--- OUTSIDE RECORDS SUMMARY | 2024-05-25 14:13 | XMS_ITS | Encounter Summary ---
Author Organization [facility] [place] [address] Care Team Providers Care Portfolio Analyst Name Role Phone Samantha Escalante APRN Primary Care Provider Encounter Details Date Type Department Care Team (Late st Contact Info) Description 11/18/2020 Ancillary Procedure Radiology Library [place] [address] Samantha Escalante APRN [address] [place] [address] Social History Tobacco Use Types [...] Ultrasound Study (11/18/2020 12:00 AM EDT) Narrative [facility] - 11/19/2020 1:47 AM EDT This exam is auto-finalizing. It's purpose is for storage only. Samantha Escalante APRN IMG FILM LIBRARY OR DERABLES [place] documented in this encounter Visit Diagnoses Not on filedocumented in this encounter Care Teams Portfolio Analyst Relationship Specialty Start Date End Date Samantha Escalante APRN [address] [place] [address] PCP - General Family Medicine 10/06/17 documented as of this encounter
--- OUTSIDE RECORDS SUMMARY | 2024-05-25 14:13 | XMS_ITS | Encounter Summary ---
Author Organization [facility] [place] [address] Care Team Providers Care Petroleum Engineering Professor Name Role Phone Samantha Escalante APRN Primary Care Provider [phone] Reason for Visit * Reason Comments Skin Check * Consultation (Routine) - Specialty Diagnoses / Procedures Referred By Wai del castillo Referred To Contact Dermatology Diagnoses Other seborrheic keratosis Seborrheic keratosis Procedures Consult Samantha Escalante APRN [address] [place] [address] Willard Parra MD [address] [place] [address], [facility] [place] [address] Referral ID Status Reason Start Date Expiration Date V isits Requested Visits Authorized [id number] 09/28/2017 09/28/2018 1 1 Encounter Details Date Type Department Care Team (Late st Contact Info) Description 04/14/2018 11:00 AM EST Office Visit Dermatology at [address] [address] Willard Parra MD [address] [place] [address], [facility] A DERMATOLOGY [place], [place] [address] Seborrheic keratosis Social History Tobacco Use Types [...] 1. Patient given informational brochure from the [employer] about seborrheic keratoses 2. [...] keratosis documented in this encounter Care Teams Petroleum Engineering Professor Relationship Specialty Start Date End Date Samantha Escalante APRN [address] [place] [address] PCP - General Family Medicine 10/06/17 documented as of this encounter
--- OUTSIDE RECORDS SUMMARY | 2024-05-25 14:13 | XMS_ITS | Encounter Summary ---
Author [facility] [place] [address] Care Team Providers Care Insulation Foreman Name Role Phone Samantha Escalante APRN Primary Care Provider Encounter Details Date Type Department Care Team (Late st Contact Info) Description 10/14/2020 Telephone [place] [address] Sharonda Durand Social History Tobacco Use Types [...] on filedocumented in this encounter Care Teams Insulation Foreman Relationship Specialty Start Date End Date Samantha Escalante APRN [address] [place] [address] PCP - General Family Medicine 10/06/17 documented as of this encounter
--- OUTSIDE RECORDS SUMMARY | 2024-05-25 14:13 | XMS_ITS | Encounter Summary ---
Author Organization [facility] Address [address] [place] [address] Care Team Providers Care Credit Collection Specialist Name Role Phone Rajat Roca MD Primary Care Provider [phone] Encounter Details Date Type Department Care Team (Latest Contact Info) Description 11/21/2017 19:26 EDT - 11/21/2017 23:59 EDT Hospital Encounter [address] [address] Unknown, Provider, MD Discharge Disposition: Home or [...] Code Departure Means Destination Home or Self Usp documented in this encounter Plan of Treatment Not on file documented as of this encounter Visit Diagnoses Not on filedocumented in this encounter Care Teams Credit Collection Specialist Relationship Specialty Start Date End Date Rajat Roca MD [address] [place] [address] [place] [address] PCP - General 04/20/16 01/06/22 documented as of this encounter
--- OUTSIDE RECORDS SUMMARY | 2024-05-25 14:13 | XMS_ITS | Encounter Summary ---
Author Organization [facility] [place] [address] Care Team Providers Care Personnel Specialist Name Role Phone Samantha Escalante APRN Primary Care Provider Encounter Details Date Type Department Care Team (Late st Contact Info) Description 06/22/2021 3:00 PM EST Office Visit Dermatology at [address] [phone] Willard Navarrete MD [address] [facility] [place] [address] Seborrheic keratoses Social History Tobacco Use Types [...] keratoses documented in this encounter Care Teams Personnel Specialist Relationship Specialty Start Date End Date Samantha Escalante APRN [address] [place] [address] [address] [place] [address] PCP - General Family Medicine 10/06/17 documented as of this encounter
--- OUTSIDE RECORDS SUMMARY | 2024-05-25 14:13 | XMS_ITS | Encounter Summary ---
Author Organization [facility] Address [address] [place] [address] Care Team Providers Care Geophysical Support Specialist Name Role Phone Ava Samantha DELIA Primary Care Provider [phone] Encounter Details Date Type Department Care Team (Late st Contact Info) Description 11/25/2023 Lab Requisition [facility] Pathology & Laboratory Medicine - [facility] [address] [place] [address] Outr Resulting Lab, Provider Social History Tobacco [...] Procedure Name Priority Date/Time Associated Diagnosis Comments HIV 1/2 ANTIGEN AND ANTIBODY, 4TH GENERATION Routine 11/25/2023 8:28 EDT documented in this encounter Results * HIV 1/2 ANTIGEN AND ANTIBODY, 4TH GENERATION (11/25/2023 8:28 EDT) HIV 1 and 2 Antibody/p24 Antigen, 4th Generation Negative Negative 11/25/2023 21:53 EDT [facility] Comment:If acute HIV-1 infec tion is suspected in a high risk patient, submit plasma specimen for HIV-1 RNA quantitation test. Blood VENOUS BLOOD / Unknown 11/25/2023 8:28 EDT 11/25/2023 19:51 EDT Narrative [facility] - 11/25/2023 21:53 EDT Fourth Generation assay performed on the [employer] XPT. us Provider Outr Resulting Lab IMMUNOLOGY AND SEROL OGY ORDERABLES Final Result Performing Organization Address City/State/[facility] Co de Phone Number [facility] [address] [place] [phone] documented in this encounter Visit Diagnoses Not on filedocumented in this encounter Care Teams Geophysical Support Specialist Relationship Specialty Start Date End Date Samantha Escalante NP [address] [place] [address] [address] [place] [phone] PCP - General 01/07/22 documented as of this encounter
--- OUTSIDE RECORDS SUMMARY | 2024-05-25 14:13 | XMS_ITS | Encounter Summary ---
Author Organization [facility] [place] [address] Care Team Providers Care Sanitation Manager Name Role Phone Samantha Escalante APRN Primary Care Provider [phone] Encounter Details Date Type Department Care Team (Late st Contact Info) Description 06/26/2021 Telephone Dermatology at [address] [place] [address] Marcela Arevalo RN Social History [...] on filedocumented in this encounter Care Teams Sanitation Manager Relationship Specialty Start Date End Date Ava SamanthaCHACE barrios [address] [place] [address] [address] [facility] [address] [place] [address] PCP - General Family Medicine 10/06/17 documented as of this encounter
--- OUTSIDE RECORDS SUMMARY | 2024-05-25 14:13 | XMS_ITS | Encounter Summary ---
Author Organization [facility] [place] [address] Care Team Providers Care Wrapper Dipper Name Role Phone Samnatha Escalante APRN Primary Care Provider Encounter Details Date Type Department Care Team (Late st Contact Info) Description 07/21/2021 12:45 PM EDT Telephone Pre-Admission Testing at [facility] [address] [place] [address] Social History Tobacco Use Types [...] on filedocumented in this encounter Care Teams Wrapper Dipper Relationship Specialty Start Date End Date Samantha Escalante APRN [address] [place] [address] [address] [facility] [address] [place] [address] PCP - General Family Medicine 10/06/17 documented as of this encounter
--- OUTSIDE RECORDS SUMMARY | 2024-05-25 14:13 | XMS_ITS | Clinical Summary ---
Author Organization [facility] Address [address] [place] [address] Care Team Providers Care Interpersonal Communications Professor Name Role Phone Kikearely Samantha DELIA Primary Care Provider [phone] Social History Tobacco Use Types Packs/Day Years [...] (1 - 1-dose 75+ series) 12/04/2031 Insurance [facility] MEDICARE Care Teams Interpersonal Communications Professor Relationship Specialty Start Date End Date Samantha Escalante NP [address] [place] [address] [address] [place] [address] [facility] - General 01/07/22
--- OUTSIDE RECORDS SUMMARY | 2024-05-25 14:13 | XMS_ITS | Encounter Summary ---
Author Organization [facility] Address [address] [place] [address] Care Team Providers Care Field Research Assistant Name Role Phone Unavailable Primary Care Provider Unavailabl e Encounter Details Date Type Department Care Team (Late st Contact Info) Description 11/27/2003 Results Only [facility] [address] [place] [address] Jacqui Stearns MD [address] [place] [address] Social History Tobacco Use Types [...] ? GALINA VELIZ ? Accession #: ? [id number] : ? 1955 (Age: 47) ??F ?Collect Date: ? 11/27/2003 Location: ? [facility] ? Receive Date: ? 11/28/2003 Provider: ? JACQUI STEARNS MD Copy to: ? CYTOLOGIC DIAGNOSIS: ? Urine, voided, cytologic evaluation: 1. ?No malignant cells identified. 2. ?Mainly vaginal contamination with vaginosis; scant urothelial cells. Document reviewed and electronically signed by: ? MARCUS JOHNSTON MD [facility] Report Date: ??11/29/2003 15:37 By [...] ORDERABLES Final Re sult [facility]ANCO[facility] MONREAL [address] [place] [address] documented in this encounter Visit Diagnoses Not on filedocumented in this encounter
--- OUTSIDE RECORDS SUMMARY | 2024-05-25 14:13 | XMS_ITS | Encounter Summary ---
Author Organization [place] [address] Care Team Providers Care Assistant Toddler Teacher Name Role Phone Samantha Escalante APRN Primary Care Provider Encounter Details Date Type Department Care Team (Late st Contact Info) Description 04/01/2020 7:38 AM EST Hospital Encounter [place] [address] Samantha Escalante APRN [address] [place], [place] [phone] Coronary artery disease, angina presence unspecified, unspecified vessel or lesion type, unspecified whether kluti kaah or transplanted heart Discharge Disposition: Home Social [...] gemfibrozil (LOPID) 600 mg tablet 10/28/2009 10/13/2020 [place]-3 Fatty Acids-Fish Oil (FISH OIL OMEGA 3-6-9) 300-1,000 mg CpDR Take by mouth daily. 10/29/19 10 07/21/2021 documented as of this encounter Plan of Treatment Not on file documented as of this encounter Procedures Procedure Name Priority Date/Time Associated Diagnosis Comments NUCLEAR PHARMACOLOGIC STRESS CARDIOLOGY Routine 04/01/2020 9:16 AM EST Coronary artery disease, angina presence unspecified, unspecified vessel or lesion type, unspecified whether [place] or transplanted heart STRESS TEST SCAN 04/01/2020 [...] unspecified vessel or lesion type, unspecified whether kluti kaah or transplanted heart documented in this encounter Care Teams Assistant Toddler Teacher Relationship Specialty Start Date End Date Samantha Escalante APRN [address] [place], [place] [address]Y [facility] 1 [place] [address] PCP - General Family Medicine 10/06/17 documented as of this encounter
--- OUTSIDE RECORDS SUMMARY | 2024-05-25 14:13 | XMS_ITS | Encounter Summary ---
Author Organization [facility] [place] [address] Care Team Providers Care Stemmer Machine Name Role Phone Samantha Escalante APRN Primary Care Provider Encounter Details Date Type Department Care Team (Late st Contact Info) Description 06/04/2021 11:30 AM EST Office Visit Dermatology at [address] [phone] Willard Parra MD [address] [facility] [place] [address] Seborrheic keratosis, inflamed; Seborrheic keratoses Social History [...] skin checkup, and [facility] of [facility] irritated seborrheic keratoses , [...] largest ones have resolved following treatment at [facility], all except 1. She has numerous small [...] keratoses documented in this encounter Care Teams Stemmer Machine Relationship Specialty Start Date End Date Samantha Escalante APRN [address] [place] [address] PCP - General Family Medicine 10/06/17 documented as of this encounter
--- OUTSIDE RECORDS SUMMARY | 2024-05-25 14:13 | XMS_ITS | Encounter Summary ---
Author Organization [facility] Address [address] [place] [address] Care Team Providers Care Post Partum Nurse Name Role Phone Rajat Roca MD Primary Care Provider [phone] Encounter Details Date Type Department Care Team (Late st Contact Info) Description 11/21/2017 Results Only [facility] [phone] Juwan Zapata MD [address] [place] [address] [address] [place], [place] [phone] Social History Tobacco Use Types Packs/Day Years [...] ? GALINA VELIZ ? Accession #: ? [id number] ? : ? 1955 (Age: 61) ??F ? Collect Date: ? 11/21/2017 ? Location: ? [facility] ? Receive Date: ? 11/21/2017 ? Provider: JUWAN ZAPATA MD Copy to: MAURICE NEGRON SERVICE LINE BUS CLEANER ? Final Pathologic Diagnosis: A. STOMACH, ANTRUM, BIOPSY: - Antral mucosa with mild chronic gastritis and focal activity. - Associated reactive gastropathy. - See comment. B. GASTROESOPHAGEAL JUNCTION, BIOPSY: - Columnar mucosa with focal intestinal metaplasia, negative for dysplasia. - Adjoining squamous mucosa with features of reflux esophagitis. Comment: Deeper levels examined. ANTIBODY(CLONE)(BLO CK):RESULT H. pylori (Rabbit Monoclonal (SP48), [place]) (A1): Negative NOTE: ??One or more of [...] performance characteristics have been determined by [facility] and/or by the referring laboratory. ??The [...] are submitted entirely in B1. MIKI Wolfe ([facility]) 11/21/2017 3:49 PM End of Report [facility] 11/21/2017 15:2 8 EDT 11/21/2017 15:28 EDT us Juwan Zapata MD PATHOLOGY ORDERABLES Fin al Result [facility] [address] [place] [address] documented in this encounter Visit Diagnoses Not on filedocumented in this encounter Care Teams Post Partum Nurse Relationship Specialty Start Date End Date Rajat Roca MD [address] [place] [address] PCP - General 04/20/16 01/06/22 documented as of this encounter
--- OUTSIDE RECORDS SUMMARY | 2024-05-25 14:13 | XMS_ITS | Encounter Summary ---
Author Organization [facility] Address [address] [place] [address] Care Team Providers Care Yarn Finisher Name Role Phone Jacqui Anaya MD Primary Care Provider [phone] Encounter Details Date Type Department Care Team (Late st Contact Info) Description 04/14/2016 Results Only [facility] [phone] Van Mills, DO [address] [facility] [address] AREVALO [address] [place] [phone] Social History Tobacco Use Types Packs/Day Years [...] ? GALINA VELIZ ? Accession #: ? [id number] ? : ? 1955 (Age: 60) ??F [...] Myersmartínez 04/16/2016 10:51 AM End of Report [facility] 04/14/2016 20:1 1 EST 04/15/2016 20:11 EST us Van Mills DO PATHOLOGY ORDERABLES Fi nal Result Performing Organization Address City/State/[facility] Co de Phone Number [facility] [address] [place] [address] documented in this encounter Visit Diagnoses Not on filedocumented in this encounter Care Teams Yarn Finisher Relationship Specialty Start Date End Date Jacqui Anaya MD [address] [place] [address] PCP - General 04/13/11 04/19/16 documented as of this encounter
--- OUTSIDE RECORDS SUMMARY | 2024-05-25 14:13 | XMS_ITS | Encounter Summary ---
Author Organization [facility] Address [address] [place] [address] Care Team Providers Care Battery Wrecker Operator Name Role Phone Jacqui Anaya MD Primary Care Provider [phone] Encounter Details Date Type Department Care Team (Latest Contact Info) Description 04/14/2016 7:09 EST - 04/14/2016 23:59 EST Hospital Encounter [address] [address] Unknown, Provider, MD Discharge Disposition: Home or [...] Code Departure Means Destination Home or Self Shelter documented in this encounter Plan of Treatment Not on file documented as of this encounter Visit Diagnoses Not on filedocumented in this encounter Care Teams Battery Wrecker Operator Relationship Specialty Start Date End Date Jacqui Anaya MD [address] [place] [address] PCP - General 04/13/11 04/19/16 documented as of this encounter
--- OUTSIDE RECORDS SUMMARY | 2024-05-25 14:13 | XMS_ITS | Encounter Summary ---
Author [facility] [place] [address] Care Team Providers Care Import Customer Service Manager Name Role Phone Samantha Escalante APRN Primary Care Provider Encounter Details Date Type Department Care Team (Late st Contact Info) Description 02/05/2021 Telephone [place] [address] Bessie Dorman Social History Tobacco Use Types [...] on filedocumented in this encounter Care Teams Import Customer Service Manager Relationship Specialty Start Date End Date Samantha Escalante APRN [facility] [address] [place] [address] PCP - General Family Medicine 10/06/17 documented as of this encounter
--- OUTSIDE RECORDS SUMMARY | 2024-05-25 14:13 | XMS_ITS | Encounter Summary ---
[place] [address] Care Team Providers Care Gauger Chief Delivery Name Role Phone Samantha Escalante APRN Primary Care Provider [phone] Encounter Details Date Type Department Care Team (Late st Contact Info) Description 10/30/2008 Orders [place] [address] Jordan Dixon MD Social History Tobacco Use Types Packs/Day Years Used Date Smoking Tobacco: Never Assessed [facility] Inpatient Questions Answer Date Recorded [...] 9:14 AM EDT) Surgical Pathology Report [id number] ? Location: [facility] The signing pathologist has (i) examined [...] on filedocumented in this encounter Care Teams Gauger Chief Delivery Relationship Specialty Start Date End Date Samantha Escalante APRN [address] [place] [address] [address] [place] [address] PCP - General Family Medicine 10/06/17 documented as of this encounter
--- OUTSIDE RECORDS SUMMARY | 2024-05-25 14:13 | XMS_ITS | Encounter Summary ---
Author Organization [facility] Address [address] [place] [address] Care Team Providers Care Brown Stock Washer Name Role Phone Rajat Roca MD Primary Care Provider [phone] Samantha Escalante NP Primary Care Provider [phone] Encounter Details Date Type Department Care Team (Late st Contact Info) Description 09/14/2019 Lab Requisition [facility] Pathology & Laboratory Medicine - [facility] [address] [place] [address] Outr Resulting Lab, Provider Social History Tobacco [...] Priority Date/Time Associated Diagnosis Comments ZZCOVID-19 TEST [facility] PCR Today 09/14/2019 13:57 EDT COVID-19 TESTING Routine 09/14/2019 13:5 7 EDT documented in this encounter Results * COVID-19 TEST [facility] PCR (09/14/2019 13:57 EDT) Swab ENTIRE NASOPHARYNX / Unknown 09/14/2019 13:57 EDT 09/16/2019 16:17 EDT Narrative [facility] - 09/17/2019 15:46 EDT Delay in testing. Potential for false negative results. us Provider Outr Resulting Lab MICROBIOLOGY - GENER AL ORDERABLES Final Result Performing Organization Address [facility] Co de Phone Number [facility] [address] [place] [address] * COVID-19 TESTING (09/14/2019 13:57 EDT) COVID-19 rt-PCR Result Negative Negative 09/17/2019 15:46 EDT [facility] Comment: Delay in testing. Potential for false negative results. Negative results do not preclude 2019-nCoV infection and should not be used as the sole basis for treatment or other patient management decisions. Negative results must be combined with clinical observations, patient history, and epidemiological information. This test was developed and its performance characteristics determined by [facility]. It has not been cleared or [...] by the FDA Performed on the [employer] Fast. Performing Lab [facility] 09/17/2019 15:46 EDT [facility] Swab ENTIRE NASOPHARYNX / Unknown 09/14/2019 13:57 EDT 09/16/2019 16:17 EDT us Provider Outr Resulting Lab MICROBIOLOGY - GENER AL ORDERABLES Final Result Performing Organization Address City/[facility]/ZIP Co de Phone Number [facility] [address] [place] [address] documented in this encounter Visit Diagnoses Not on filedocumented in this encounter Care Teams Brown Stock Washer Relationship Specialty Start Date End Date Rajat Roca MD [address] [place] [address] PCP - General 04/20/16 01/06/22 Samantha Escalante NP [address] [place], [place] [address] [address] [place] [id number] PCP - General 01/07/22 documented as of this encounter
--- OUTSIDE RECORDS SUMMARY | 2024-05-25 14:13 | XMS_ITS | Encounter Summary ---
Author Organization [facility] [place] [address] Care Team Providers Care Field Representative/Health Education Name Role Phone Samantha Escalante APRN Primary Care Provider [phone] Reason for Visit * Reason Comments Skin Lesion Encounter Details Date Type Department Care Team (Late st Contact Info) Description 09/15/2020 11:00 AM EDT Office Visit Dermatology at [address] [address] Frieda Bermudez MD [facility] [address] [place] [address] Seborrheic keratosis, inflamed; Inflamed skin tag Social [...] by: Frieda Bermudez MD Resident in Dermatology [facility] Cosigned by: Piero Marc MD Department of Dermatology [facility] * Piero Marc III, MD [...] skin documented in this encounter Care Teams Field Representative/Health Education Relationship Specialty Start Date End Date Samantha Escalante APRN [address] [facility] [facility] [address] [address] [place] [address] PCP - General Family Medicine 10/06/17 documented as of this encounter
--- OUTSIDE RECORDS SUMMARY | 2024-05-25 14:13 | XMS_ITS | Encounter Summary ---
[place] [address] Care Team Providers Care Senior Accountant Cpa Name Role Phone Samantha Escalante APRN Primary Care Provider Reason for Visit * Diagnostic Test (Routine) - Closed Specialty Diagnoses / Procedures Referred By Wai t Referred To Contact Radiology Diagnoses Coronary artery disease, angina presence unspecified, unspecified vessel or lesion type, unspecified whether [place] or transplanted heart Procedures NM Pharmacologic Stress and Rest Myocardial Perfusion Samantha Escalante APRN [address] [place] [address] [place] [address] Referral ID Status Reason Start Date Expiration Date V isits Requested Visits Authorized [id number] Closed Specialty Service Requested 12/27/2019 06/23/2020 1 1 Encounter Details Date Type Department Care Team (Late st Contact Info) Description 04/01/2020 7:38 AM EST Hospital Encounter [place] [address] Samantha Escalante APRN [address] [place], [place] [id number] Discharge Disposition: Home Social History Tobacco Use [...] gemfibrozil (LOPID) 600 mg tablet 10/28/2009 10/13/2020 [place]-3 Fatty Acids-Fish Oil (FISH OIL OMEGA [...] unspecified vessel or lesion type, unspecified whether [place] or transplanted heart documented in this encounter [...] ? Electronically signed by: Erick Wallace MD, [facility] ([phone]), at 04/01/2020 11:32 AM Narrative 04/01/2020 11:32 [...] below. Electronically signed by: Erick Wallace MD, [facility]([phone]), at 04/01/2020 11:32 AM Samantha Escalante APRN IMG NM ORDERABLES documented in this encounter Visit Diagnoses Not on filedocumented in this encounter Care Teams Senior Accountant Cpa Relationship Specialty Start Date End Date Samantha Escalante APRN [address] [place] [address] PCP - General Family Medicine 10/06/17 documented as of this encounter
--- OUTSIDE RECORDS SUMMARY | 2024-05-25 14:13 | XMS_ITS | Encounter Summary ---
Author Organization [facility] Address [address] [place] [address] Care Team Providers Care Core Cutter Name Role Phone Rajat Roca MD Primary Care Provider [phone] Samantha Escalante NP Primary Care Provider [phone] Encounter Details Date Type Department Care Team (Late st Contact Info) Description 01/05/2022 Lab Requisition [facility] Pathology & Laboratory Medicine - [facility] [address] [place] [address] Ming Dhillon Jr., MD [address] [place] [phone] Encounter for other general examination Social [...] management options, if applicable. 01/17/2022 22:15 [facility] Final Diagnosis A. SOFT TISSUE OF KNEE, RIGHT, LIPOMA, EXCISION: - Lipoma with focal fat necrosis and reactive changes. 01/17/2022 22:15 [facility] Attestation By the signature below, the attending physician certifies that they have 1) personally conducted a gross and/or microscopic examination of the described specimen(s), and/or personally interpreted the results of laboratory testing of the described specimen(s), and 2) personally rendered or confirmed the above diagnosis. 01/17/2022 22:15 [facility] at 2215 Clinical History Fatty tissue right knee; lipoma/mass right knee 01/17/2022 22:15 [facility] Gross Description A. Received in formalin labelled with proper patient identification (initials S, D) and lipoma/mass R knee are 3 portions of yellow-asldana adipose tissue (2.6 x 2.2 x 1.0 cm in aggregate). The largest tissue is partially encapsulated by a pelayo-saldana, thin, semi-translucent membrane. The specimen is serially sectioned to reveal pale yellow to peripherally saldana-brown cut surfaces without hemorrhagic areas or necrosis. The specimen is entirely submitted in A1-A3. MIKI WHITFIELD(ASCP) 01/06/2022 7:41 01/17/2022 22:15 [facility] Performing Lab [facility] 01/17/2022 22:15 [facility] Scanned Images 01/17/2022 22:15 [facility] Tissue SOFT TISSUE / Unknown 01/05/2022 11:36 EDT 01/05/2022 17:00 EDT us Ming Dhillon Jr., MD PATHOLOGY ORDER CHAY[place]O Final Result [facility] [address] [place] [address] documented in this encounter Visit Diagnoses Diagnosis Encounter for other general examination documented in this encounter Care Teams Core Cutter Relationship Specialty Start Date End Date Rajat Roca MD [address] [place] [address] PCP - General 04/20/16 01/06/22 Samantha Escalante NP [address] [place] [address] PCP - General 01/07/22 documented as of this encounter
--- OUTSIDE RECORDS SUMMARY | 2024-05-25 14:13 | XMS_ITS | Encounter Summary ---
Author Organization [facility] Address [address] [place] [address] Care Team Providers Care Insurance Rater Name Role Phone ElaineSamantha worthington DELIA Primary Care Provider [phone] Encounter Details Date Type Department Care Team (Late st Contact Info) Description 02/17/2022 Lab Requisition [facility] Pathology & Laboratory Medicine - [facility] [address] [place] [address] Geovany Ibrahim MD [address] [place] [address] [place] [address] Encounter for other general examination Social History [...] explore management options, if applicable. 02/22/2022 10:11 [facility] Final Diagnosis A. DUODENUM, [...] of hyperplastic polyps, 12 fragments. 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 NOTE: IHC testing and interpretation was performed by [facility] laboratory. One or more of the reagents [...] reagents performance characteristics have been determined by [facility] laboratory. This laboratory is certified under the Clinical Laboratory Improvement Amendment of 1988 (CLIA-88) as qualified to perform high complexity clinical laboratory testing. 02/22/2022 10:11 [facility] Attestation There was significan t resident/fellow involvement in the diagnostic evaluation of this case. By the signature below, the attending physician certifies that they have personally conducted a gross and/or microscopic examination of the described specimens and rendered or confirmed the above diagnosis. 02/22/2022 10:11 [facility] at [address]1 Clinical History Anemia, h/o Alford's esophagus, h/o colon polyps 02/22/2022 10:11 [facility] Gross Description A. Received [...] G1-G3. MIKI LANG(ASCP) 02/17/2022 19:27 02/22/2022 10:11 [facility] Resident/Fell ow: Bertin Peña DO 02/22/2022 10:11 EDT [facility] Performing Lab [facility] 02/22/2022 10:11 EDT [facility] Scanned Images 02/22/2022 10:11 EDT [facility] Tissue SPECIMEN FROM [...] Ibrahim MD PATHOLOGY ORDERABLES Fin al Result [facility] [address] [place] [address] documented in this encounter Visit Diagnoses Diagnosis Encounter for other general examination documented in this encounter Care Teams Insurance Rater Relationship Specialty Start Date End Date Samantha Escalante NP [address] [facility] [place] [phone] PCP - General 01/07/22 documented as of this encounter
--- OUTSIDE RECORDS SUMMARY | 2024-05-25 14:13 | XMS_ITS | Encounter Summary ---
Author Organization [facility] [place] [address] Care Team Providers Care Inspector Purchased Parts Name Role Phone Samantha Escalante APRN Primary Care Provider [phone] Reason for Visit * Reason Comments Follow-up Encounter Details Date Type Department Care Team (Late st Contact Info) Description 06/17/2021 1:45 PM EST Office Visit Dermatology at [address] [place] [address] Willard Parra MD [address] [email or web address] [place] [address] Seborrheic keratosis, inflamed; Seborrheic keratoses Social History [...] keratoses documented in this encounter Care Teams Inspector Purchased Parts Relationship Specialty Start Date End Date Samantha Escalante APRN [address] [place] [address] PCP - General Family Medicine 10/06/17 documented as of this encounter
--- OUTSIDE RECORDS SUMMARY | 2024-05-25 14:13 | XMS_ITS | Encounter Summary ---
Author Organization [facility] [place] [address] Care Team Providers Care Forging Press Operator Name Role Phone Samantha Escalante APRN Primary Care Provider Encounter Details Date Type Department Care Team (Late st Contact Info) Description 04/09/2021 4:30 PM EST Ancillary Procedure Radiology Library at [facility] [place] [address] Samantha Escalante APRN [address] [place], [place] [id number] Social History Tobacco Use Types Packs/Day Years [...] MR Spine (04/09/2021 4:29 PM EST) Narrative [facility] - 04/09/2021 4:29 PM EST This exam is auto-finalizing. It's purpose is for storage only. Samantha Escalante APRN IMG FILM LIBRARY OR DERABLES [place], [place] documented in this encounter Visit Diagnoses Not on filedocumented in this encounter Care Teams Forging Press Operator Relationship Specialty Start Date End Date Samantha Escalante APRN [address] [place] [address] PCP - General Family Medicine 10/06/17 documented as of this encounter
--- OUTSIDE RECORDS SUMMARY | 2024-05-25 14:13 | XMS_ITS | Encounter Summary ---
Author Organization [facility] [place] [address] Care Team Providers Care Chain Machine Operator Name Role Phone Samantha Escalante APRN Primary Care Provider [phone] Reason for Visit * Reason Comments Follow-up Skin Lesion Encounter Details Date Type Department Care Team (Late st Contact Info) Description 10/13/2020 2:20 PM EDT Office Visit Dermatology at [address] [phone] Petros Durand MD Seborrheic keratosis, inflamed Social History Tobacco Use [...] very itchy and bothersome. Last visit at [facility] Derm: 09/15/2020 Last visit with this provider: [...] ??? N/A RTC: PRN []Note routed to secretary board of commissioners []Recall has been placed in scheduling system []Appointment scheduled at checkout Scribe attestation: ELSIE Armstrong who has performed the documentation for this encounter in the presence of and acting as a scribe for Petros Durand MD. I performed the above scribed service and agree with the accuracy of the documentation in this encounter. Reviewed and signed by: Petros Durand MD Dermatology [facility] Patient seen and evaluated with staff lubrication supervisor: Cheyenne Bradford MD Dermatology [facility] * Cheyenne Bradford MD - [...] keratosis documented in this encounter Care Teams Chain Machine Operator Relationship Specialty Start Date End Date Samantha Escalante APRN [address] [place] [address] PCP - General Family Medicine 10/06/17 documented as of this encounter
--- OUTSIDE RECORDS SUMMARY | 2024-05-25 14:13 | XMS_ITS | Encounter Summary ---
Author Organization [facility] [place] [address] Care Team Providers Care Global Technical Writer Name Role Phone Samantha Escalante APRN Primary Care Provider Reason for Visit * Consultation (Routine) - Closed Specialty Diagnoses / Procedures Referred By Wai del castillo Referred To Contact Dermatology Diagnoses Disorder of the skin and subcutaneous tissue, unspecified Samantha Escalante APRN [address] [place] [address] [facility] Dermat[facility] [address] [place] [address] Referral ID Status Reason Start Date Expiration Date V isits Requested Visits Authorized [id number] Closed Consult, Test & Treat Connection Center PCP Updated and/or Approved 03/13/2020 03/13/2021 6 6 Encounter Details Date Type Department Care Team (Late st Contact Info) Description 04/04/2020 10:00 AM EST Office Visit Dermatology at [address] [place] [address] Roc Nugent MD [facility] [address] [place] [address] Dermatofibroma; Seborrheic keratoses; Seborrheic keratoses, [...] ??? gemfibrozil (LOPID) 600 mg tablet ??? [place]-3 Fatty Acids-Fish Oil (FISH OIL OMEGA 3-6-9) [...] by Roc Nugent MD Resident in Dermatology [facility] Patient seen in conjunction with staff pecan cleaner: Piero Marc MD Department of Dermatology [facility] * Piero Marc III, MD - 04/04/2020 10:00 AM EST I was the supervising physician working with dermatology resident Dr. Nugent in the dermatology clinic during this patient visit. The level of resident supervision for this patient visit was indirectsupervision with direct supervision immediately available. (definition: [facility] GME Policy Statement on Graduate Medical Education, [...] Report (04/04/2020 10:57 AM EST) Final Diagnosis [id number] ? Location: HDM The signing pathologist has (i) examined the relevant preparation(s) for the specimen(s) and (ii) rendered or confirmed the diagnosis(es). . ?Surgical Pathology DIAGNOSIS Vertex scalp, skin shave biopsy ONLY: - ??Verrucous keratosis, inflamed Electronically signed by: ??Wu AY, PhD, Hitesh Verified: ??04/07/2020 ?Dermatopatholo gist Performed at: ??-[facility] Dept. of Pathology, [place], [place] SPECIMEN(S) SUBMITTED A - vertex scalp, [...] labeled A1. ??lyric 04/07/2020 9:57 AM EST [facility] SPECIMEN FROM SKIN / Unknown 04/04/2020 10:57 AM EST 04/04/2020 10:57 AM EST Roc Nugent MD PATHOLOGY/CYTOLOGY O RDERABLES [facility] [place] [address] * Specimen to Pathology (04/04/2020 10:57 AM EST) AP Specimen 04/04/2020 10:5 7 AM EST 04/04/2020 10:57 AM EST Narrative [facility] - 04/04/2020 10:57 AM EST Specimen requisition ordered. ??Separate Pathology report to follow Piero Marc III, MD PATHOLOGY/CYTOL OGY ORDERABLES [facility] [place] [address] documented in this encounter Visit Diagnoses Diagnosis Dermatofibroma Benign neoplasm of skin, site unspecified Seborrheic keratoses Seborrheic keratoses, inflamed Neoplasm of uncertain behavior of skin documented in this encounter Care Teams Global Technical Writer Relationship Specialty Start Date End Date Samantha Escalante APRN [address] [place] [address] [address] [place] [address] PCP - General Family Medicine 10/06/17 documented as of this encounter
--- OUTSIDE RECORDS SUMMARY | 2024-05-25 14:13 | XMS_ITS | Encounter Summary ---
Author Organization [facility] Address [address] [place] [address] Care Team Providers Care Environmental Test Technician Name Role Phone Unavailable Primary Care Provider Unavailabl e Encounter Details Date Type Department Care Team (Late st Contact Info) Description 04/09/2011 Results Only [facility] Laboratory Services - [facility] ([facility]) [address] [place], [place] [address] [place], [address] [facility] [address] [place] [address] Social History Tobacco Use Types Packs/Day Years [...] ? GALINA VELIZ ? Accession #: ? [id number] ? : ? 1955 (Age: 55) ??F [...] are submitted intact as (B1) (B2). ??(Dr. Vera)/[facility] End of Report [facility] 04/09/2011 04/09/2011 16: 52 EST us [place] DO PATHOLOGY ORDERABLES Fi nal Result Performing Organization Address City/State/[facility] Co de Phone Number [facility] [address] [place] [address] documented in this encounter Visit Diagnoses Not on filedocumented in this encounter
--- OUTSIDE RECORDS SUMMARY | 2024-05-25 14:13 | XMS_ITS | Encounter Summary ---
Author Organization [facility] Address [address] [place] [address] Care Team Providers Care Mailing Machine Operator Name Role Phone ElaineSamantha worthington MANAGER OF BUSINESS OPERATIONS Primary Care Provider [phone] Encounter Details Date Type Department Care Team (Late st Contact Info) Description 11/25/2023 Lab Requisition [facility] Pathology & [place] [address] Outr Resulting Lab, Provider Social History Tobacco [...] Surface Ag Negative Negative 11/25/19 21:27 EDT [facility] Hep B Surface Ab, Quantitative <3.1 See Note mIU/mL 11/25/2023 21:27 EDT [facility] Comment: Reference Range for Hep B Surface Ab, Quant: Positive: >= 10.0 mIU/mL Negative: ??< 10.0 mIU/mL Patient is presumed to not be immune to infection with Hepatitis B Virus. Hep B Surface Ab, Qualitative Negative See Note 11/25/2023 21:27 EDT [facility] Comment: Reference Range for Hep B Surface Ab, Qual: Unvaccinated: ??Negative Vaccinated: ??Positive Hepatitis B Core Ab, Total Negative Negative 11/25/2023 21:27 EDT [facility] Blood VENOUS BLOOD / Unknown 11/25/2023 8:28 EDT 11/25/2023 19:51 EDT us Provider Outr Resulting Lab CHEMISTRY & BLOOD GA S ORDERABLES Final Result [facility] [address] [place] [address] documented in this encounter Visit Diagnoses Not on filedocumented in this encounter Care Teams Mailing Machine Operator Relationship Specialty Start Date End Date Samantha Escalante NP [address] [place] [address] [address] [place] [address] PCP - General 01/07/22 documented as of this encounter
--- OUTSIDE RECORDS SUMMARY | 2024-05-25 14:13 | XMS_ITS | Encounter Summary ---
Author Organization [facility] [place] [address] Care Team Providers Care Code And Test Clerk Name Role Phone Samantha Escalante APRN Primary Care Provider Reason for Visit * Consultation (Routine) - Closed Specialty Diagnoses / Procedures Referred By Wai del castillo Referred To Contact Gastroenterology Diagnoses Alford's esophagus Procedures Consult Samantha Escalante APRN [address] [place] [address] [facility] [address] [place] [address] Referral ID Status Reason Start Date Expiration Date Visits Re quested Visits Authorized [id number] Closed 03/12/2020 03/12/2021 1 1 Encounter Details Date Type Department Care Team (Late st Contact Info) Description 10/13/2020 1:00 PM EDT Office [place] [address] Thania Lau MD [facility] [place] [address] RUQ pain Social History Tobacco [...] from the original note were not included. [facility] Division of Gastroenterology and Hepatology Outpatient Consultation [...] TAKE 1 TABLET BY MOUTH DAILY ??? [place]-3 Fatty Acids-Fish Oil (FISH OIL OMEGA 3-6-9) 300-1,000 mg CpDR (Patient not taking: No sig reported) No current facility-administered medications for this visit. Allergies Allergen Reactions ??? Omeprazole Other reaction(s): Rash, itching all over ??? Caqjski-Yvk-Fvx Reductase Inhibitors Other reaction(s): MUSCLE ACHES ??? [...] of caffeine and chocolate -BE surveillance due 1900-0558 -RTC 3 months This case was discussed with Dr. Percy Lau MD Fellow in Gastroenterology and Hepatology [place] [id number] P: [phone] F: [phone] CC Samantha Escalante APRN [address] [place] [address] * Thiago Greer MD - 10/13/2020 1:00 [...] quadrant documented in this encounter Care Teams Code And Test Clerk Relationship Specialty Start Date End Date Samantha Escalante APRN [address] [place] [address] PCP - General Family Medicine 10/06/17 documented as of this encounter
--- OUTSIDE RECORDS SUMMARY | 2024-05-25 14:13 | XMS_ITS | Encounter Summary ---
Author Organization [facility] [place] [address] Care Team Providers Care Tie Worker Name Role Phone Samantha Escalante APRN Primary Care Provider [phone] Encounter Details Date Type Department Care Team (Late st Contact Info) Description 07/17/2021 External Results Pre-Admission Testing at [facility] [address] [place] [phone] Social History Tobacco Use Types Packs/Day Years [...] on filedocumented in this encounter Care Teams Tie Worker Relationship Specialty Start Date End Date Samantha Escalante APRN [address] [place] [address] PCP - General Family Medicine 10/06/17 documented as of this encounter
== END 2024-05-25 14:10 | disposition home or self-care (01) ==
LOC: LBN 14:09
PROVIDERS: PCP Nurse Practitioner Family; Visit Provider Nurse Practitioner Family
DX: N76.0 Acute vaginitis (principal); R73.03 Prediabetes
CPT/HCPCS: 87480; 87510; 87660

== ENCOUNTER 2024-06-01 01:46 | Outpatient (CLI) | payer MEDICARE, SELFPAY ==
--- OUTSIDE RECORDS SUMMARY | 2024-06-01 01:49 | XMS_ITS | Encounter Summary ---
Author Organization [facility] [place] [address] Care Team Providers Care Manager Recruitment Name Role Phone Samantha Escalante APRN Primary Care Provider Reason for Visit * Auth/Cert (Routine) Specialty Diagnoses / Procedures Referred By Wai del castillo Referred To Contact Diagnoses BILATERAL SI JOINT DYSFUNCTION Procedures PRO ARTHRODESIS SACROILIAC JOINT PERCUTANEOUS Jacinto Apodaca MD [address] [place] [address] Referral ID Status Reason Start Date Expiration Date Visits Re quested Visits Authorized [id number] 10/26/2022 1 1 Encounter Details Date Type Department Care Team (Late st Contact Info) Description 11/17/2022 1:40 PM EDT - 11/17/2022 3:40 PM EDT Surgery Operating Room Sheela Acosta [address] [place] [address] Jacinto Apodaca MD [address] [place] [address] ARTHRODESIS,SACROILIAC JOINT FUSION (WRVU 12.13) Social History [...] post-operative follow up appointment with your surgeon/physician???s corporate legal assistant scheduled. If you have any questions, [...] when to stop taking it. Only take cjfv-zpr-anbcjns or prescription medicine for pain, discomfort or [...] condition, questions or concerns. SMOKING CESSATION INFORMATION: [place] QUITLINE: PR QUITLINE: [email or web address] If you smoke, it is recommended that you stop now! MAKE SURE YOU: Understand these instructions. Will seek medical care if you are feeling poor, or get worse. Will call the surgeon???s office with any questions or concerns at : [phone] Nursing information only: Original document to medical [...] Apodaca MD - 11/17/2022 1:08 PM EDT [facility] Operative Note [facility] [place] [address] [place] [address] Patient Name: Lynda Pedersen : [id number] MR#: [id number] Case Date: 11/17/2022 Case Scheduled Time: 1340 Surgeon: Surgeon(s) and Role: * Jacinto Apodaca MD - Primary * Denny Fuentes PA - Physician Staff Development Coordinator Rn Preoperative diagnosis: BILATERAL SI JOINT DYSFUNCTION Postoperative diagnosis: BILATERAL SI JOINT DYSFUNCTION Actual procedure: Bilateral SI joint instrumented fusion using Marsteller screws, locally harvested bone, and bone morphogenic [...] CT scan. We imported the CTinto the [facility] station and planned our surgical trajectories. We [...] awl-tip tap is utilized to create a drone pilot hole under live image guidance. Next the hole is palpated with the image guided probe to ensure no unexpected breach of cortex. Next the Marsteller bone harvest device and final tap is utilized under live image guidance along the drone pilot hole trajectory. This final hole is palpated again with the image guided probe. The bone harvest device is cleaned of its bone graft which is then implanted into the central channel of the Marsteller screw along withbone morphogenic sponge. The ends of the Marsteller screw were capped with demineralized bone matrix [...] the duration of the operative session. The corporate legal assistant adequately prepped the operative site and [...] SI JOINT DYSFUNCTION Arthrodesis Sacroiliac Joint Percutaneous (68843) 11/17/2022 12:48 PM EDT BILATERAL SI JOINT [...] RN) documented in this encounter Care Teams Manager Recruitment Relationship Specialty Start Date End Date Samantha Escalante APRN [address] [place] [address] PCP - General Family Medicine 10/06/17 documented as of this encounter
--- OUTSIDE RECORDS SUMMARY | 2024-06-01 01:49 | XMS_ITS | Encounter Summary ---
Author Organization [facility] [place] [address] Care Team Providers Care City Council Member Name Role Phone Samantha Escalante APRN Primary Care Provider Reason for Visit * Reason Comments Post Op Encounter Details Date Type Department Care Team (Late st Contact Info) Description 07/09/2022 9:40 AM EST Office Visit [place] [phone] Keli Forde MD [facility] [place] [address] Complex ovarian cyst Social History Tobacco Use [...] 9:40 AM EST Division [place] [address] Postoperative Visit: Patient Active Problem List Diagnosis [...] Gautam Verified: ??06/28/2022 15:10 ??Pathologist Performed at: ??-[facility] Dept. of Pathology, [place] [address] Converting Operator: Liss Shepard MD, AP, ??CLIA Certificate: [id number] Assessment and Plan: Lynda Pedersen is a [...] cyst documented in this encounter Care Teams City Council Member Relationship Specialty Start Date End Date Samantha Escalante APRN [address] [place] [address] [address] [facility] [address] [place] [address] PCP - General Family Medicine 10/06/17 documented as of this encounter
--- OUTSIDE RECORDS SUMMARY | 2024-06-01 01:49 | XMS_ITS | Encounter Summary ---
Author Organization [facility] [place] [address] Care Team Providers Care Microbiology Technologist Name Role Phone Samantha Escalante APRN Primary Care Provider Encounter Details Date Type Department Care Team (Late st Contact Info) Description 11/16/2022 9:45 AM EDT Telephone Pre-Admission Testing at [facility] [address] [place] [address] Social History Tobacco Use Types [...] on filedocumented in this encounter Care Teams Microbiology Technologist Relationship Specialty Start Date End Date Samantha Escalante APRN [address] [place], [place] [address] [address] [place] [address] PCP - General Family Medicine 10/06/17 documented as of this encounter
--- OUTSIDE RECORDS SUMMARY | 2024-06-01 01:49 | XMS_ITS | Encounter Summary ---
Author Organization Formerly [facility] [place] [address] Care Team Providers Care Over The Road Driver Name Role Phone Samantha Escalante APRN Primary Care Provider Encounter Details Date Type Department Care Team (Late st Contact Info) Description 06/21/2022 12:27 PM EST - 06/21/2022 2:53 PM EST Surgery [place] [id number] Keli Eli MD [facility] [place] [address] LAPAROSCOPY, REMOVAL OF ADNEXA (WRVU 11.35) Social [...] PATIENT DISCHARGE INSTRUCTIONS Gynecologic Oncology phone number: [phone] (Nurse ext 4 then 4; appointment ext 1 then 4). After hours and on weekends please call hospital tucking machine operator at [phone] and ask for Gynecologic Oncologist theater projectionist. Call your doctor if you develop: --A fever over 101 degrees --Severe pain --Increasing pain, redness, or discharge at any of your incisions --Heavy vaginal bleeding-soaking through a pad an hour Future Appointments and Orders Future Appointments and Orders Future Appointments Provider Department Dept Phone 07/09/2022 9:40 AM Keli Eli MD Gynecology Oncology at [facility] Arrive at: [employer] [facility] [phone] Activity level: Let your body guide you. [...] Eli MD - 06/21/2022 1:21 PM EST [facility] Operative Note Patient Name: Lynda Pedersen : [id number] MR#: [id number] Case Date: 06/21/2022 Surgeon: Surgeon(s) and Role: [...] CYTOPATHOLOGY NON-GYNECOLOGICAL Pelvic Washings for Permanent OR28 [id number] 06/21/2022 1:34 PM Pertinent clinical data and significant therapy: ADNEXAL MASS Clinical impression: Pelvic Washings Procedure Type: Cystoscopy Specimen Type: Pelvic wash SPECIMEN TO PATHOLOGY Please perform frozen section OR28 [id number] ADNEXAL MASS Right Fallopian Tube and Right [...] endometrioma. ?? She was seen by her district manager Dr. Plascencia ([facility]) who ordered tumor markers: Ca 125 7.2, AFP 6.4, bHCG 6.2. ?? I saw Estephanie for a visit in the general trailer sections assembler clinic and subsequently referred her here for [...] TO PATHOLOGY Routine 06/21/2022 1:38 PM EST NON-RESEARCH PHYSICIST FINAL REPORT Routine 06/21/2022 1:34 PM EST CYTOPATHOLOGY NON-GYNECOLOGICAL Routine 06/21/2022 1:34 PM EST Lap, Rmv Adnexal Structure ([id number]) Yes 06/21/2022 12:49 PM EST ADNEXAL MASS POCT GLUCOSE Routine 06/21/2022 12:36 PM EST documented in this encounter Results * Surgical Pathology Report (06/21/2022 1:38 PM EST) Final Diagnosis [id number] ? Location: [facility]; The signing pathologist has (i) examined the relevant preparation(s) for the specimen(s) and (ii) rendered or confirmed the diagnosis(es). . ?Surgical Pathology DIAGNOSIS Right fallopian tube and ovary (salpingo-oophore ctomy): ?? 1. Ovarian serous cystadenoma. ?? 2. Benign fallopian tube. CR-0 Electronically signed by: ?Yadiel YA, Steve Gautam Verified: ??06/28/2022 15:10 ??Pathologist Performed at: ??-[facility] Dept. of Pathology, [place] [id number] Sales Order Specialist: Liss Shepard MD, FCAP, ??CLIA Certificate: [id number] SPECIMEN(S) SUBMITTED A - Right fallopian tube [...] Fallopian Tube: 4.0 x 0.6 cm, fimbriated. Dishing Machine Operator sections in 7 cassettes as follows: ?A1: FS1: Focal thickened cyst lining ?A2: Right fallopian tube, fimbriae ?A3: Right fallopian tube, cross sections ?A4-A7: Right ovary cystic lesion ??njrs ?Frozen Section FROZEN SECTION DIAGNOSIS AFS1 - Right fallopian tube and right ovary: ? - Serous cystadenoma. 06/21/22 14:28/jlb Electronically signed by: ?Jana YA, Bessie Vela Verified: ??06/21/2022 14:30 ??Pathologist Performed at: ??-[facility] Dept. of Pathology, [place] [address] Sales Order Specialist: Liss Shepard MD, AP, ??CLIA Certificate: [id number] This intraoperative consultation should be interpreted as a preliminary diagnosis pending review of the entire specimen and special studies, if any. A final Surgical Pathology report will follow this preliminary Frozen Section report(s). 06/28/2022 3:[address] [facility] OVARIAN PART / Unknown 06/21/2022 1:38 PM EST 06/21/2022 1:38 PM EST Keli Eli MD PATHOLOGY/CYTOLOGY ORDERABLES [facility] [place] [address] [facility] [place] [address] * Specimen to Pathology (06/21/2022 1:38 PM EST) AP Specimen 06/21/2022 1:38 PM EST 06/21/2022 1:38 PM EST Narrative [facility] - 06/21/2022 1:38 PM EST Specimen requisition ordered. ??Separate Pathology report to follow Keli Eli MD PATHOLOGY/CYTOLOGY ORDERABLES [facility] [place] [address] * Non-Drywall Stripper Final Report (06/21/2022 1:34 PM EST) Diagnosis Discussion [id number] ? Location: [facility]; The signing pathologist has (i) examined the relevant preparation(s) for the specimen(s) and (ii) rendered or confirmed the diagnosis(es). . ? Non-Drywall Stripper Final DIAGNOSIS Negative for Malignancy Electronically signed by: ?Nohemi YA, Flako [place] Verified: ??06/24/2022 14:45 ??Cytopathologis t Performed at: ??-[facility] Dept. of Pathology, [place] [address] Sales Order Specialist: Liss Shepard MD, FCAP, ??CLIA Certificate: [id number] DISCUSSION Pelvic wash: Clusters of mesothelial cells [...] Cell Block 1. 06/24/2022 2:[address] [facility] Pelvic Washing 06/21/2022 1: 34 PM EST 06/21/2022 1:34 PM EST Narrative Authorizing Provider Result Kareem Eli MD PATHOLOGY/CYTOLOGY ORDERABLES Performing Organization Address City/[facility]/ZIP Co de Phone Number [facility] [place], [place] [id number] [place] [address] [place] [address] * Cytopathology Non-Gynecological (06/21/2022 1:34 PM EST) AP Specimen 06/21/2022 1:34 PM EST 06/21/2022 1:34 PM EST Narrative [facility] - 06/21/2022 1:34 PM EST Specimen requisition ordered. ??Separate Pathology report to follow Authorizing Provider Result Kareem Eli MD PATHOLOGY/CYTOLOGY ORDERABLES Performing Organization Address [facility] Co de Phone Number [facility] [place] [address] * POCT Glucose (06/21/2022 12:36 PM EST) Glucose, POC 68 65 - 199 mg/dL [facility] Comment: Supplemental ranges: <140 mg/dL before meals <180 mg/dL all other times of the day Blood 06/21/2022 12:3 6 PM EST 06/21/2022 12:36 PM EST Narrative Authorizing Provider Result Kareem Eli MD POINT OF CARE TEST ORDERABLES Performing Organization Address [facility] Co de Phone Number [facility] [place] [address] documented in this encounter Visit Diagnoses Not [...] Routine documented in this encounter Care Teams Over The Road Driver Relationship Specialty Start Date End Date Samantha Escalante APRN [address] [place] [address] PCP - General Family Medicine 10/06/17 documented as of this encounter
--- OUTSIDE RECORDS SUMMARY | 2024-06-01 01:49 | XMS_ITS | Encounter Summary ---
[place] [address] Care Team Providers Care Machinist Mate Name Role Phone Samantha Escalante APRN Primary Care Provider Reason for Referral * Diagnostic Test (Routine) - Closed Specialty Diagnoses / Procedures Referred By Contac t Referred To Contact Radiology Diagnoses Spondylosis of lumbosacral region, unspecified spinal osteoarthritis complication status Low back pain, unspecified back pain laterality, unspecified chronicity, unspecified whether sciatica present Procedures CT Guided Injection SI Joint Jacinto Apodaca MD [address] [place] [address] [facility] [place] [address] Referral ID Status Reason Start Date Expiration Date V isits Requested Visits Authorized [id number] Closed Specialty Service Requested 06/15/2022 12/14/2023 1 1 Reason for Visit * Diagnostic Test (Routine) - Closed Specialty Diagnoses / Procedures Referred By Contac t Referred To Contact Radiology Diagnoses Spondylosis of lumbosacral region, unspecified spinal osteoarthritis complication status Low back pain, unspecified back pain laterality, unspecified chronicity, unspecified whether sciatica present Procedures CT Guided Injection SI Joint Jacinto Apodaca MD [address] [place] [address] [facility] [place] [address] Referral ID Status Reason Start Date Expiration Date V isits Requested Visits Authorized [id number] Closed Specialty Service Requested 06/15/2022 12/14/2023 1 1 Encounter Details Date Type Department Care Team (Latest Contact Info) Description 07/13/2022 10:04 AM EST - 07/13/2022 11:59 PM EST Hospital [place] [address] Jacinto Apodaca MD Spondylosis of lumbosacral region, [...] who have questions please contact the health foster care case manager that requested your imaging first. ? Electronically signed by: Ming Maki MD, [facility] ([phone]), at 07/13/2022 11:21 AM Narrative 07/13/2022 11:21 AM EST EXAMINATION: CT [...] patients who have questions please contactthe health foster care case manager that requested your imaging first. Jacinto Apodaca [...] mLs documented in this encounter Care Teams Machinist Mate Relationship Specialty Start Date End Date Samantha Escalante APRN [address] [place] [address] [address] [facility] [address] [place] [address] PCP - General Family Medicine 10/06/17 documented as of this encounter
--- OUTSIDE RECORDS SUMMARY | 2024-06-01 01:49 | XMS_ITS | Encounter Summary ---
Author Organization [facility] [place] [address] Care Team Providers Care Brusher Tender Name Role Phone Samantha Escalante APRN Primary Care Provider [phone] Reason for Visit * Auth/Cert (Routine) Specialty Diagnoses / Procedures Referred By Wai del castillo Referred To Contact Diagnoses BILATERAL SI JOINT DYSFUNCTION Procedures PRO ARTHRODESIS SACROILIAC JOINT PERCUTANEOUS Jacinto Apodaca MD [address] [place] [address] Referral ID Status Reason Start Date Expiration Date Visits Re quested Visits Authorized [id number] 10/26/2022 1 1 Encounter Details Date Type Department Care Team (Latest Contact Info) Description 11/17/2022 11:10 AM EDT - 11/17/2022 4:12 PM EDT Hospital Encounter Post Acute Care Unit at [facility] [address] [place] [address] Jacinto Apodaca MD [address] [place] [address] Disorder of sacrum Discharge Disposition: Home Social [...] follow up appointment with your surgeon/physician???s assistant site manager scheduled. If you have any questions, please [...] when to stop taking it. Only take gzzh-bqq-lhkxbyn or prescription medicine for pain, discomfort or [...] condition, questions or concerns. SMOKING CESSATION INFORMATION: [place] QUITLINE: [place] QUITLINE: [email or web address] If you smoke, it is recommended that you stop now! MAKE SURE YOU: Understand these instructions. Will seek medical care if you are feeling poor, or get worse. Will call the surgeon???s office with any questions or concerns at : [phone] Nursing information only: Original document to medical [...] - 11/17/2022 12:24 PM EDT Patient Name: Lynad Pedersen Patient Age: 66 y.o. Birthdate: 1955 [...] Apodaca MD - 11/17/2022 1:08 PM EDT [facility] [place] [address] Patient Name: Lynda Pedersen : [id number] MR#: [id number] Case Date: 11/17/2022 Case Scheduled Time: 1340 Surgeon: Surgeon(s) and Role: * Jacinto Apodaca MD - Primary * Denny Fuentes PA - Physician Turntable Man Preoperative diagnosis: BILATERAL SI JOINT DYSFUNCTION Postoperative diagnosis: BILATERAL SI JOINT DYSFUNCTION Actual procedure: Bilateral SI joint instrumented fusion using [place] screws, locally harvested bone, and bone morphogenic [...] CT scan. We imported the CTinto the [employer] Media[employer] station and planned our surgical trajectories. We [...] awl-tip tap is utilized to create a ship pilot dispatcher hole under live image guidance. Next the hole is palpated with the image guided probe to ensure no unexpected breach of cortex. Next the [place] bone harvest device and final tap is utilized under live image guidance along the ship pilot dispatcher hole trajectory. This final hole is palpated again with the image guided probe. The bone harvest device is cleaned of its bone graft which is then implanted into the central channel of the [place] screw along withbone morphogenic sponge. The ends of the [place] screw were capped with demineralized bone matrix [...] duration of the operative session. The assistant site manager adequately prepped the operative site and maintained [...] SI JOINT DYSFUNCTION Arthrodesis Sacroiliac Joint Percutaneous ([id number]) 11/17/2022 12:48 PM EDT BILATERAL SI JOINT [...] RN) documented in this encounter Care Teams Brusher Tender Relationship Specialty Start Date End Date Samantha Escalante APRN [address] [place] [address] PCP - General Family Medicine 10/06/17 documented as of this encounter
--- OUTSIDE RECORDS SUMMARY | 2024-06-01 01:49 | XMS_ITS | Encounter Summary ---
Author Organization [facility] [place] [address] Care Team Providers Care Company Driver Name Role Phone Samantha Escalante APRN Primary Care Provider Reason for Visit * Auth/Cert (Routine) Specialty Diagnoses / Procedures Referred By Wai del castillo Referred To Contact Diagnoses BILATERAL SI JOINT DYSFUNCTION Procedures PRO ARTHRODESIS SACROILIAC JOINT PERCUTANEOUS Jacinto Apodaca MD [address] [facility] [place] [address] Referral ID Status Reason Start Date Expiration Date Visits Re quested Visits Authorized [id number] 10/26/2022 1 1 Encounter Details Date Type Department Care Team (Late st Contact Info) Description 11/17/2022 12:48 PM EDT Anesthesia Event Operating Room [address] [place] [address] Ming Torres CRNA [facility] [place] [address] Anesthesia Record Procedure Summary Procedure Name Responsible [...] basilic vein (medial side of arm), left; obwn-nwv-oqzshi catheter system; Anatomical Landmarks; 20 gauge; ES; [...] Procedure Summary Date: 11/17/22 Room / Location: [facility] OR MAIN OR Anesthesia Start: 1248 Anesthesia [...] Injection SI Joint 07/13/2022 Ming Maki MD [facility] RAD CT SCAN FINGER TRIGGER RELEASE L and R thumbs HYSTERECTOMY laparoscopic with LSO for endometriosis LIPOMA RESECTION LUMBAR DISC SURGERY PRO LAMINEC/FACETECT/FORAMIN, LUMBAR 1 SEG Right 08/05/2021 LAMINECTOMY, FACETECTOMY & FORAMINOTOMY,LUMBAR, ONE LEVEL (WRVU 15.37) performed by Jacinto Apodaca MD at [facility] MAIN OR PRO LAP, RMV ADNEXAL STRUCTURE N/A 06/21/2022 LAPAROSCOPY, REMOVAL OF ADNEXA (WRVU 11.35) performed by Tonia Eli MD at [facility] MAIN OR TONSILLECTOMY AND ADENOIDECTOMY UPPER GASTROINTESTINAL ENDOSCOPY Social History Tobacco Use Smoking status: Former Smokeless tobacco: Never Substance Use Topics Alcohol use: Never Social History Substance and Sexual Activity Drug Use Never Allergies Allergen Reactions Omeprazole Other reaction(s): Rash, itching all over Xrrztlf-Uhg-Lsg Reductase Inhibitors Other reaction(s): MUSCLE ACHES Codeine Phosphate CIS - Nausea/Vomiting Penicillins CIS - Rash PAT Penicillin Allergy Risk Assessment 06/11/2022: Low risk penicillin allergy. OK to receive full dose of cefazolin, cefuroxime, or any 3rd or 4th+ generation cephalosporin. PAT Clinic EMT BASIC to place Allergy referral for formal penicillin [...] mg documented in this encounter Care Teams Company Driver Relationship Specialty Start Date End Date Samantha Escalante APRN [address] [place] [address] [address] [facility] 1 [place] [address] PCP - General Family Medicine 10/06/17 documented as of this encounter
--- OUTSIDE RECORDS SUMMARY | 2024-06-01 01:49 | XMS_ITS | Encounter Summary ---
Author Organization [facility] [place] [address] Care Team Providers Care Manager Rail Name Role Phone Samantha Escalante APRN Primary Care Provider Encounter Details Date Type Department Care Team (Late st Contact Info) Description 04/29/2023 Ancillary Procedure Radiology Library at [facility] [place] [address] Samantha Escalante APRN [address] [place] [address] Social History Tobacco Use Types Packs/Day Years Used Date Smoking Tobacco: Former Cigarettes 1 45 1 [id number] Smokeless Tobacco: Never Alcohol Use Standard Drinks/Week Comments Never 0 (1 standard drink = 0.6 oz pur e alcohol) [facility] Inpatient Questions Answer Date Recorded Does Anyone [...] MR Spine (04/29/2023 12:00 AM EST) Narrative [facility] - 05/04/2023 9:04 AM EST This exam is auto-finalizing. It's purpose is for storage only. Samantha Escalante APRN IMG FILM LIBRARY OR DERABLES Performing Organization Address City/State/[facility] Co de Phone Number [place], [place] documented in this encounter Visit Diagnoses Not on filedocumented in this encounter Care Teams Manager Rail Relationship Specialty Start Date End Date Samantha Escalante APRN [address] [place] [address] PCP - General Family Medicine 10/06/17 documented as of this encounter
--- OUTSIDE RECORDS SUMMARY | 2024-06-01 01:49 | XMS_ITS | Encounter Summary ---
Author Organization [facility] [place] [address] Care Team Providers Care Senior Safety Management Consultant Name Role Phone Samantha Escalante APRN Primary Care Provider Encounter Details Date Type Department Care Team (Late st Contact Info) Description 06/23/2022 Telephone [place] [phone] Kristin Mattson RN Social History Tobacco Use [...] for Bactrim DS was sent to the [facility] pharmacy in [place]. Informed patient that she will be taking this twice daily for 7 days. Advised patient to take a picture of herincisions later today with the help of her granddaughter so that we can compare the redness in caseit increases. Patient verbalized understanding and will take a picture later today. She will pick and shovel worker her antibiotics and start taking these. She [...] needed, she would like this sent to [facility] in [place], [place]. documented in this encounter Plan of Treatment Not on file documented as of this encounter Visit Diagnoses Not on filedocumented in this encounter Care Teams Senior Safety Management Consultant Relationship Specialty Start Date End Date Samantha Escalante APRN [facility] [address] [place] [address] PCP - General Family Medicine 10/06/17 documented as of this encounter
--- OUTSIDE RECORDS SUMMARY | 2024-06-01 01:49 | XMS_ITS | Encounter Summary ---
Author Organization [facility] [place] [address] Care Team Providers Care Porcelain Enameling Supervisor Name Role Phone Samantha Escalante APRN Primary Care Provider Encounter Details Date Type Department Care Team (Latest Contact Info) Description 06/21/2022 11:06 AM EST - 06/21/2022 5:40 PM EST Hospital [place] [id number] Keli Eli MD [facility] [place] [address] Complex ovarian cyst (Primary Dx) Discharge Disposition: [...] PATIENT DISCHARGE INSTRUCTIONS Gynecologic Oncology phone number: [phone] (Nurse ext 4 then 4; appointment ext 1 then 4). After hours and on weekends please call hospital molding machine operator helper at [phone] and ask for Gynecologic Oncologist monitor car operator. Call your doctor if you develop: --A fever over 101 degrees --Severe pain --Increasing pain, redness, or discharge at any of your incisions --Heavy vaginal bleeding-soaking through a pad an hour Future Appointments and Orders Future Appointments and Orders Future Appointments Provider Department Dept Phone 07/09/2022 9:40 AM Keli Eli MD Gynecology Oncology at [facility] Arrive at: Customer Service Receptionist Area 3K [phone] Activity level: Let your body guide you. [...] Eli MD - 06/21/2022 1:21 PM EST [facility] Operative Note Patient Name: Lynda Pedersen : [id number] MR#: [id number] Case Date: 06/21/2022 Surgeon: Surgeon(s) and Role: [...] CYTOPATHOLOGY NON-GYNECOLOGICAL Pelvic Washings for Permanent OR28 [id number] 06/21/2022 1:34 PM Pertinent clinical data and significant therapy: ADNEXAL MASS Clinical impression: Pelvic Washings Procedure Type: Cystoscopy Specimen Type: Pelvic wash SPECIMEN TO PATHOLOGY Please perform frozen section OR28 [id number] ADNEXAL MASS Right Fallopian Tube and Right [...] endometrioma. ?? She was seen by her validation software facilitator Dr. Plascencia ([facility]) who ordered tumor markers: Ca 125 7.2, AFP 6.4, bHCG 6.2. ?? I saw Estephanie for a visit in the general hand tier clinic and subsequently referred her here for [...] TO PATHOLOGY Routine 06/21/2022 1:38 PM EST NON-SAMPLE EXAMINER FINAL REPORT Routine 06/21/2022 1:34 PM EST CYTOPATHOLOGY NON-GYNECOLOGICAL Routine 06/21/2022 1:34 PM EST Lap, Rmv Adnexal Structure ([id number]) Yes 06/21/2022 12:49 PM EST ADNEXAL MASS POCT GLUCOSE Routine 06/21/2022 12:36 PM EST documented in this encounter Results * Surgical Pathology Report (06/21/2022 1:38 PM EST) Final Diagnosis [id number] ? Location: [facility]; [facility]; The signing pathologist has (i) examined the relevant preparation(s) for the specimen(s) and (ii) rendered or confirmed the diagnosis(es). . ?Surgical Pathology DIAGNOSIS Right fallopian tube and ovary (salpingo-oophore ctomy): ?? 1. Ovarian serous cystadenoma. ?? 2. Benign fallopian tube. CR-0 Electronically signed by: ?Yadiel YA, Steve Gautam Verified: ??06/28/2022 15:10 ??Pathologist Performed at: ??[facility] of [facility], [place] [id number] Post Office Clerk: Liss Shepard MD, FCAP, ??CLIA Certificate: [id number] SPECIMEN(S) SUBMITTED A - Right fallopian tube and ovary, resection ?for frozen section CLINICAL INFORMATION Adnexal mass SPECIMEN PROCESSING A - Labeled/Fixative: Right fallopian tube and right ovary, fresh. Quantity/Size/Gopi ght: Single, 8.0 x 8.0 x 0.5 cm, 43.0 grams (overall). Tissue Description: Intact salpingo-oophorec yante. RIGHT OVARY ?? Size: 8.0 x 8.0 x 2.5 cm. ?? Outer Surface: [place]-pink, disrupted. ?? Cut Surface: Multiloculated cyst contains clear, ?? thin fluid. Multiple focal areas of thickening of ?? the inner lining. Right Fallopian Tube: 4.0 x 0.6 cm, fimbriated. Education Specialist sections in 7 cassettes as follows: ?A1: FS1: Focal thickened cyst lining ?A2: Right fallopian tube, fimbriae ?A3: Right fallopian tube, cross sections ?A4-A7: Right ovary cystic lesion ??njrs ?Frozen Section FROZEN SECTION DIAGNOSIS AFS1 - Right fallopian tube and right ovary: ? - Serous cystadenoma. 06/21/22 14:28/jlb Electronically signed by: ?Jana YA, Bessie Vela Verified: ??06/21/2022 14:30 ??Pathologist Performed at: ??[facility] of Pathology, [place] [address] Post Office Clerk: Liss Shepard MD, AP, ??CLIA Certificate: [id number] This intraoperative consultation should be interpreted as a preliminary diagnosis pending review of the entire specimen and special studies, if any. A final Surgical Pathology report will follow this preliminary Frozen Section report(s). 06/28/2022 3:10 PM EST [facility] OVARIAN PART / Unknown 06/21/2022 1:38 PM EST 06/21/2022 1:38 PM EST Keli Eli MD PATHOLOGY/CYTOLOGY ORDERABLES [facility] [place] [address] [facility] [place] [address] * Specimen to Pathology (06/21/2022 1:38 PM EST) AP Specimen 06/21/2022 1:38 PM EST 06/21/2022 1:38 PM EST Narrative [facility] - 06/21/2022 1:38 PM EST Specimen requisition ordered. ??Separate Pathology report to follow Keli Eli MD PATHOLOGY/CYTOLOGY ORDERABLES [facility] [place] [address] * Non-Heat Treating Operator Final Report (06/21/2022 1:34 PM EST) Diagnosis Discussion [id number] ? Location: [facility]; [facility]; The signing pathologist has (i) examined the relevant preparation(s) for the specimen(s) and (ii) rendered or confirmed the diagnosis(es). . ? Non-Heat Treating Operator Final DIAGNOSIS Negative for Malignancy Electronically signed by: ?Nohemi YA, Flako Logan Verified: ??06/24/2022 14:45 ??Cytopathologis t Performed at: ??[facility], [place] [address] Post Office Clerk: Liss Shepard MD, FCAP, ??CLIA Certificate: [id number] DISCUSSION Pelvic wash: Clusters of mesothelial cells [...] Cell Block 1. 06/24/2022 2:45 PM EST [facility] Pelvic Washing 06/21/2022 1: 34 PM EST 06/21/2022 1:34 PM EST Narrative Authorizing Provider Result Kareem Eli MD PATHOLOGY/CYTOLOGY ORDERABLES Performing Organization Address [facility]/ZIP Co de Phone Number [facility] [place] [place] [id number] [place] [address] [place] [address] * Cytopathology Non-Gynecological (06/21/2022 1:34 PM EST) AP Specimen 06/21/2022 1:34 PM EST 06/21/2022 1:34 PM EST Narrative [facility] - 06/21/2022 1:34 PM EST Specimen requisition ordered. ??Separate Pathology report to follow Authorizing Provider Result Kareem Eli MD PATHOLOGY/CYTOLOGY ORDERABLES Performing Organization Address [facility] Co de Phone Number [facility] [place] [address] * POCT Glucose (06/21/2022 12:36 PM EST) Glucose, POC 68 65 - 199 mg/dL [facility] Comment: Supplemental ranges: <140 mg/dL before meals <180 mg/dL all other times of the day Blood 06/21/2022 12:3 6 PM EST 06/21/2022 12:36 PM EST Narrative Authorizing Provider Result Kareem Eli MD POINT OF CARE TEST ORDERABLES Performing Organization Address [facility] Co de Phone Number [facility] [place] [address] documented in this encounter Visit Diagnoses Diagnosis [...] Routine documented in this encounter Care Teams Porcelain Enameling Supervisor Relationship Specialty Start Date End Date Samantha Escalante APRN [address] [place] [address] PCP - General Family Medicine 10/06/17 documented as of this encounter
--- OUTSIDE RECORDS SUMMARY | 2024-06-01 01:49 | XMS_ITS | Encounter Summary ---
Author [place] [address] Care Team Providers Care Workers' Compensation Hearings Officer Name Role Phone Samantha Escalante APRN Primary Care Provider Encounter Details Date Type Department Care Team (Late st Contact Info) Description 06/23/2022 Orders Only [place] [address] Kristin Mattson RN Incisional infection Social History [...] infection documented in this encounter Care Teams Workers' Compensation Hearings Officer Relationship Specialty Start Date End Date Samantha Escalante APRN [address] [place], [place] [address] PCP - General Family Medicine 10/06/17 documented as of this encounter
--- OUTSIDE RECORDS SUMMARY | 2024-06-01 01:49 | XMS_ITS | Encounter Summary ---
Author Organization [facility] [place] [address] Care Team Providers Care Electric Plater Name Role Phone Samantha Escalante APRN Primary Care Provider Reason for Visit * Auth/Cert (Routine) Specialty Diagnoses / Procedures Referred By Wai del castillo Referred To Contact Diagnoses BILATERAL SI JOINT DYSFUNCTION Procedures PRO ARTHRODESIS SACROILIAC JOINT PERCUTANEOUS Jacinto Apodaca MD [address] [place] [address] Referral ID Status Reason Start Date Expiration Date Visits Re quested Visits Authorized [id number] 10/26/2022 1 1 Encounter Details Date Type Department Care Team (Late st Contact Info) Description 11/17/2022 11:55 AM EDT Ancillary Procedure Radiology Xray at [facility] [address] [place] [id number] Social History Tobacco Use Types Packs/Day Years Used Date Smoking Tobacco: Former Cigarettes 1 45 1 973 - 2017 Smokeless Tobacco: Never Alcohol Use Standard Drinks/Week Comments Never 0 (1 standard drink = 0.6 oz pur e alcohol) [facility] Inpatient Questions Answer Date Recorded [...] on filedocumented in this encounter Care Teams Electric Plater Relationship Specialty Start Date End Date Samantha Escalante APRN [address] [place] [address] [address] [place] [address] PCP - General Family Medicine 10/06/17 documented as of this encounter
--- OUTSIDE RECORDS SUMMARY | 2024-06-01 01:49 | XMS_ITS | Encounter Summary ---
Author Organization [facility] [place] [address] Care Team Providers Care Supervisor Display Fabrication Name Role Phone Samantha Escalante APRN Primary Care Provider [phone] Encounter Details Date Type Department Care Team [...] filedocumented in this encounter Care Teams Supervisor Display Fabrication Relationship Specialty Start Date End Date Samantha Escalante APRN [address] [place] [address] PCP - General Family Medicine 10/06/17 documented as of this encounter
--- OUTSIDE RECORDS SUMMARY | 2024-06-01 01:49 | XMS_ITS | Encounter Summary ---
Author Organization [facility] [place] [address] Care Team Providers Care Screen Writer Name Role Phone Samantha Escalante APRN Primary Care Provider Encounter Details Date Type Department Care Team (Late st Contact Info) Description 06/21/2022 12:49 PM EST Anesthesia Event [place] [address] Poly Singh MD [facility] DR [place] [address] Anesthesia Record Procedure Summary Procedure Name Responsible [...] questions and acknowledgement of understanding Alex Moon, CARD HAND 1336 Break/Relief Out 1448 Extubation/LMA Out 1448 [...] 1231; metacarpal vein (top of hand), right; posx-cvz-wwgbvc catheter system; Anatomical Landmarks; 22 gauge; Kelsie [...] dorsal arch vein (top of hand), left; vtwx-zog-sanjyz catheter system; 18 gauge; Moon CARD HAND; 06/21/22; 1740 06/21/22 1300 by Poly Singh [...] Procedure Summary Date: 06/21/22 Room / Location: [facility] OR [address] [place] [address] MAIN OR Anesthesia Start: 1249 Anesthesia Stop: [...] shown include unvalidated device data. Patient Location: PACU/[facility] Level of Consciousness: Awake and Alert Pain [...] 15.37) performed by Jacinto Apodaca MD at [facility] MAIN OR ??? TONSILLECTOMY AND ADENOIDECTOMY ??? UPPER GASTROINTESTINAL ENDOSCOPY Social History Tobacco Use ??? Smoking status: Former ??? Smokeless tobacco: Never Substance Use Topics ??? Alcohol use: Never Social History Substance and Sexual Activity Drug Use Never Allergies Allergen Reactions ??? Omeprazole Other reaction(s): Rash, itching all over ??? Obwtpku-Bfm-Paj Reductase Inhibitors Other reaction(s): MUSCLE ACHES ??? Codeine Phosphate CIS - Nausea/Vomiting ??? Penicillins CIS - Rash [facility] Penicillin Allergy Risk Assessment 06/11/2022: Low risk penicillin allergy. OK to receive full dose of cefazolin, cefuroxime, or any 3rd or 4th+ generation cephalosporin. PAT Clinic WRAPPER REWINDER to place Allergy referral for formal penicillin [...] risks discussed with patient. Plan discussed with CARD HAND. Anesthesia Screening documented in this encounter Plan [...] mg documented in this encounter Care Teams Screen Writer Relationship Specialty Start Date End Date Samantha Escalante APRN [address] [place] [address] PCP - General Family Medicine 10/06/17 documented as of this encounter
--- OUTSIDE RECORDS SUMMARY | 2024-06-01 01:49 | XMS_ITS | Encounter Summary ---
Author Organization [facility] [place] [address] Care Team Providers Care Sandwich Hand Name Role Phone Samantha Escalante APRN Primary Care Provider [phone] Encounter Details Date Type Department Care Team [...] on filedocumented in this encounter Care Teams Sandwich Hand Relationship Specialty Start Date End Date Samantha Escalante APRN [address] [place] [address] PCP - General Family Medicine 10/06/17 documented as of this encounter
--- OUTSIDE RECORDS SUMMARY | 2024-06-01 01:49 | XMS_ITS | Encounter Summary ---
Author Organization [facility] [place] [address] Care Team Providers Care Finish Mixer Name Role Phone Samantha Escalante APRN Primary Care Provider [phone] Encounter Details Date Type Department Care Team (Late st Contact Info) Description 09/23/2023 Orders Only [place]ology [place] [address] Jacqui Small RESEARCH LAB ASSISTANT [facility] [address] [place] [address] Social History Tobacco Use Types Packs/Day Years Used Date Smoking Tobacco: Former Cigarettes 1 45 1 [address] Smokeless Tobacco: Never Alcohol Use Standard Drinks/Week Comments Never 0 (1 standard drink = 0.6 oz pur e alcohol) [facility] Inpatient Questions Answer Date Recorded Does [...] on filedocumented in this encounter Care Teams Finish Mixer Relationship Specialty Start Date End Date Adjovu, SamanthaCHACE [address] [place] [address] PCP - General Family Medicine 10/06/17 documented as of this encounter
--- OUTSIDE RECORDS SUMMARY | 2024-06-01 01:49 | XMS_ITS | Encounter Summary ---
Author Organization [facility] [place] [address] Care Team Providers Care Creative Engagement Director Name Role Phone Samantha Escalante APRN Primary Care Provider Encounter Details Date Type Department Care Team (Late st Contact Info) Description 10/27/2023 6:05 PM EDT Ancillary Procedure Radiology Library at [facility] [place] [address] Samantha Escalante APRN [address] [place], [place] [id number] Social History Tobacco Use Types Packs/Day Years Used Date Smoking Tobacco: Former Cigarettes 1 45 1 973 - 2018 Smokeless Tobacco: Never Alcohol Use Standard Drinks/Week Comments Never 0 (1 standard drink = 0.6 oz pur e alcohol) [facility] Inpatient Questions Answer Date Recorded Does [...] OR DERABLES Performing Organization Address City/State/[facility] Co de Phone Number [place], [place] documented in this encounter Visit Diagnoses Not on filedocumented in this encounter Care Teams Creative Engagement Director Relationship Specialty Start Date End Date Samantha Escalante APRN [address] [place] [address] PCP - General Family Medicine 10/06/17 documented as of this encounter
--- OUTSIDE RECORDS SUMMARY | 2024-06-01 01:49 | XMS_ITS | Encounter Summary ---
Author Organization [facility] Address [facility] [address] Care Team Providers Care Director Gift Name Role Phone Samantha Escalante APRN Primary Care Provider Encounter Details Date Type Department Care Team (Late st Contact Info) Description 06/21/2022 Interpretation Only Radiology [address] [place] [address] Unknown None Social History Tobacco Use Types [...] on filedocumented in this encounter Care Teams Director Gift Relationship Specialty Start Date End Date Adjovu, Samantha, ATTENDING PHYSICIAN [address] [place] [address] PCP - General Family Medicine 10/06/17 documented as of this encounter
--- OUTSIDE RECORDS SUMMARY | 2024-06-01 01:49 | XMS_ITS | Encounter Summary ---
Author Organization [facility] [place] [address] Care Team Providers Care Barge Loader Name Role Phone Samantha Escalante APRN Primary Care Provider Encounter Details Date Type Department Care Team (Late st Contact Info) Description 11/10/2022 External Results Pre-Admission Testing at [facility] [address] [place] [address] Social History Tobacco Use Types Packs/Day Years [...] on filedocumented in this encounter Care Teams Barge Loader Relationship Specialty Start Date End Date Samantha Escalante APRN [address] [place] [address] PCP - General Family Medicine 10/06/17 documented as of this encounter
--- OUTSIDE RECORDS SUMMARY | 2024-06-01 01:49 | XMS_ITS | Clinical Summary ---
Author Organization [facility] [place] [address] Care Team Providers Care Fabrication Department Supervisor Name Role Phone Samantha Escalante [...] 3rd or 4th+ generation cephalosporin. PAT Clinic SEW OUT OPERATOR to place Allergy referral for formal penicillin allergy evaluation. Patient open to a phone consult from the allergy clinic. Jpzitfd-Xed-Oir Reductase Inhibitors High 06/05/2019 Other reaction(s): MUSCLE [...] Glucose) Discontinued Medical Devices Implanted Type Area Football Pad Repairer Device Identifier Shelf Expiration Date Model / Serial / Lot Kit Graft Bone Sponge 8cc Bmp Syringe Lrg Granules Infuse ([id number]) (Autoreq) - [id number] Implanted:Qty : 1 on 11/17/2022 by Jacinto Apodaca MD at [facility] IMPLANTS Midline: Sacrum [employer] 12/06/2022 [id number] / / [id number] Screw Spinal 69e67ps Sacroiliac Thread Sld Ti ([id number]) ([employer]oreq) - [id number] Implanted:Qty : 1 on 11/17/2022 by Jacinto Apodaca MD at [facility] IMPLANTS Right: Sacrum [employer] 08/17/2029 [id number] / / [id number] Screw Spinal 94z03ct Sacroiliac Thread Sld Ti ([id number]) ([employer]oreq) - [id number] Implanted:Qty : 1 on 11/17/2022 by Jacinto Apodaca MD at [facility] IMPLANTS Right: Sacrum [employer] 03/26/2030 [id number] / / [id number] Screw Spinal 01a10xd Sacroiliac Thread Sld Ti ([id number]) (Autoreq) - [id number] Implanted:Qty : 1 on 11/17/2022 by Jacinto Apodaca MD at [facility] IMPLANTS Left: Sacrum [employer] 02/16/2030 [id number] / / [id number] Screw Spinal 73x21kf Sacroiliac Thread Sld Ti ([id number]) ([employer]oreq) - [id number] Implanted:Qty : 1 on 11/17/2022 by Jacinto Apodaca MD at [facility] IMPLANTS Left: Sacrum [employer] 10/23/2030 [id number] / / [id number] Explanted Type Area Football Pad Repairer Device Identifier Shelf Expiration Date Model / Serial / Lot Pin Fixation 150mm Ant Cerv Fusn Ss ([id number]) (Autoreq) - [id number] Explanted:Qty : 1 on 11/17/2022 by Jacinto Apodaca MD at [facility] IMPLANTS Midline: Sacrum [employer] 07/07/2024 [id number] / / [id number] Procedures Procedure Name Priority Date/Time Associated Diagnosis Comments COMPREHENSIVE METABOLIC PANEL Routine 06/11/2022 12:40 PM EST Pelvic mass in female from Last 3 Months or Most Recently Relevant to Health Maintenance Results * (ABNORMAL) Comprehensive metabolic panel (non-fasting) (06/11/2022 12:40 PM EST) Glucose 90 65 - 199 mg/dL [facility] Comment:Diabetes: >=200 mg/d L plus symptoms Blood Urea Nitrogen 11 8 - 18 mg/dL [facility] Creatinine 0.75 0.70 - 1.20 mg/dL [facility] Sodium 137 135 - 145 mmol/L [facility] Potassium 4.7 3.5 - 5.0 mmol/L [facility] Comment: Please note: ??Patients with WBC >100,000 may have falsely elevated Potassium levels. ??For accurate Potassium quantification in these patients send serum separator tube (gold top) for subsequent determinations. ??Contact the Clinical Chemistry Laboratory if there are any questions. Chloride 100 98 - 107 mmol/L [facility] Carbon Dioxide 26 22 - 31 mmol/L [facility] Anion Gap 11 5 - 15 mmol/L [facility] Calcium 10.3 8.5 - 10.5 mg/dL [facility] Protein, Total 7.8 6.1 - 8.0 g/dL [facility] Albumin 4.8 3.2 - 5.2 g/dL [facility] Aspartate Aminotransferase 38(H) 0 - 30 unit/L [facility] Alanine Aminotransferase 53(H) 0 - 30 unit/L [facility] Alkaline Phosphatase 54 35 - 105 unit/L [facility] Bilirubin, Total 0.3 0.2 - 1.3 mg/dL [facility] Est Glomerular Filtration Rate 88 >=60 mL/min/1. 73 m?? [facility] Comment: This patient's estimated GFR was [...] Lab Tonia Eli MD [place] [address] from Last 3 Months or Most Recently Relevant to Health Maintenance Advance Directives Documents on File Type Date Recorded Patient Video Production Specialist Expl anation Advance Directives and Livin g Will 06/23/2022 12:13 PM 07/16/21 Care Teams Fabrication Department Supervisor Relationship Specialty Start Date End Date Samantha Escalante APRN [address] [place] [address] PCP - General Family Medicine 10/06/17
--- OUTSIDE RECORDS SUMMARY | 2024-06-01 01:50 | XMS_ITS | Referral Summary ---
Author Organization [facility] Address [address] [place] [address] Care Team Providers Care Tool Grinder Operator Name Role Phone ElaineSamantha worthington DELIA Primary Care Provider [phone] Social History Tobacco Use Types Packs/Day Years [...] Plan of Treatment Not on file Insurance [facility] MEDICARE Care Teams Tool Grinder Operator Relationship Specialty Start Date End Date Samantha Escalante NP [address] [place] [address] [address] [place] [address] PCP - General 01/07/22
--- OUTSIDE RECORDS SUMMARY | 2024-06-01 01:50 | XMS_ITS | Encounter Summary ---
Author Organization [facility] [place] [address] Care Team Providers Care Grubber Name Role Phone Samantha Escalante APRN Primary Care Provider [phone] Reason for Visit * Reason Comments Follow-up Encounter Details Date Type Department Care Team (Late st Contact Info) Description 10/02/2021 4:45 PM EDT Office Visit Dermatology at [address] [address] Willard Parra MD [address] [facility] [place] [address] Encounter for post surgical wound check Social [...] check documented in this encounter Care Teams Grubber Relationship Specialty Start Date End Date Samantha Escalante APRN [address] [facility] [address] [place] [address] PCP - General Family Medicine 10/06/17 documented as of this encounter
--- OUTSIDE RECORDS SUMMARY | 2024-06-01 01:50 | XMS_ITS | Encounter Summary ---
Author Organization [facility], Located Within [facility] [place] [address] Care Team Providers Care Switchboard Operator Receptionist Name Role Phone Samantha Escalante APRN Primary Care Provider Reason for Referral * Consultation (Urgent) - Closed Specialty Diagnoses / Procedures Referred By Contac t Referred To Contact Gynecology Oncology Diagnoses Adnexal mass Silvana Moon MD [facility] DR OBSTETRICS & [place] [address] Tonia Eli MD [facility] [place] [address] Referral ID Status Reason Start Date Expiration Date V isits Requested Visits Authorized [id number] Closed Consult, Test & Treat 05/24/2022 05/24/2023 1 1 Reason for Visit * Reason Comments Establish Care Adnexal mass * Consultation (Routine) - Closed Specialty Diagnoses / Procedures Referred By Contac t Referred To Contact Obstetrics and Gynecology Diagnoses Cyst of right ovary Samantha Escalante APRN [address] [place] [address] [facility] Product Management Consultant [address] [place] [address] Referral ID Status Reason Start Date Expiration Date V isits Requested Visits Authorized [id number] Closed Consult, Test & Treat PCP Updated and/or Approved 04/19/2022 04/19/2023 6 6 Encounter Details Date Type Department Care Team (Late st Contact Info) Description 05/24/2022 3:20 PM EST Office Visit Obstetrics [place] [address] Silvana Moon MD Adnexal mass [...] Pedersen Referring provider: Samantha Escalante APRN [address] [facility] [address] [facility] [place] [address] Chief Complaint Patient presents with ??? Establish Care Adnexal mass HPI: Lynda Hummel is a 66 y.o. para 3 postmenopausal female presenting in referral with a complex adnexal mass. Pt presents with her granddaughter. 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 She was seen by her PCP at [facility] for a routine visit 04/2022 and mentioned [...] free fluid. She was seen by her hand roller engraver Dr. Plascencia ([facility]) who ordered blood work (on granddaughter's phone): Ca 125 7.2, AFP 6.4, beta hCG 6.2 and she was s ubsequently referred here for further evaluation and management. Of note, she is s/p laparoscopic hysterectomy and LSO at the age of 24 for endometriosis/endometrioma ([place], [place]). She recently underwent L5-S1 laminectomy 07/2021. [...] UA which was negative. Denies vaginal bleeding. hull drafter history: Gender identity: female Pronouns: she/hers Menarche: 13yo Menses: monthly lasting 7 days, fairly heavy at first, some cramping Menopause: hysterectomy age 24, vasomotor sx started late 30s and lasted 10 years Pregnancies: , x2, last was CS (had first baby at age 15) HPV vaccination: no Pap hx/tx: no h/o abnormal STI: HSV CORRESPONDENCE RENEW CLERK surgeries: s/p hysterectomy, bilateral salpingectomy, left oophorectomy for endometriosis with endometrioma ([place]) Sexually active: not currently Other hormone [...] by Jacinto Apodaca MD at [facility] MAIN OR ??? TONSILLECTOMY AND ADENOIDECTOMY [...] consultation. Pt discussed with Dr. Lopez, attending hull drafter. Silvana Moon MD PGY4 05/24/2022 * Grupo [...] organs documented in this encounter Care Teams Switchboard Operator Receptionist Relationship Specialty Start Date End Date Ava CHACE Singh [address] [place] [address] [address] [facility] [address] [place] [address] PCP - General Family Medicine 10/06/17 documented as of this encounter
--- OUTSIDE RECORDS SUMMARY | 2024-06-01 01:50 | XMS_ITS | Encounter Summary ---
Author Organization [facility] Address [address] [place] [address] Care Team Providers Care Ocean Export Coordinator Name Role Phone Rajat Roca MD Primary Care Provider [phone] Samantha Escalante NP Primary Care Provider Encounter Details Date Type Department Care Team (Late st Contact Info) Description 03/28/2019 Lab Requisition [facility] Pathology & Laboratory Medicine - [facility] [address] [place] [address] Geovany Ibrahim MD [address] [place] [address] [address] [place], [place] [address] Encounter for other general examination Social History [...] examination documented in this encounter Care Teams Ocean Export Coordinator Relationship Specialty Start Date End Date Rajat Roca MD [address] [facility] [place] [address] PCP - General 04/20/16 01/06/22 Samantha Escalante NP [address] [place] [address] [address] [place] [address] PCP - General 01/07/22 documented as of this encounter
--- OUTSIDE RECORDS SUMMARY | 2024-06-01 01:50 | XMS_ITS | Encounter Summary ---
Author Organization [facility] [place] [address] Care Team Providers Care Dyeing Machine Feeder Name Role Phone Samantha Escalante APRN Primary Care Provider Reason for Visit * Reason Comments Follow-up Encounter Details Date Type Department Care Team (Late st Contact Info) Description 06/17/2021 1:45 PM EST Office Visit Dermatology at [address] [place] [address] Willard Parra MD [address] [facility] [place] [address] Seborrheic keratosis, inflamed; Seborrheic keratoses Social History [...] keratoses documented in this encounter Care Teams Dyeing Machine Feeder Relationship Specialty Start Date End Date Samantha Escalante APRN [address] [place] [address] PCP - General Family Medicine 10/06/17 documented as of this encounter
--- OUTSIDE RECORDS SUMMARY | 2024-06-01 01:50 | XMS_ITS | Encounter Summary ---
Author Organization [facility] Address [address] [place] [address] Care Team Providers Care Windows Server Administrator Name Role Phone Ava Samantha DELIA Primary Care Provider [phone] Encounter Details Date Type Department Care Team (Late st Contact Info) Description 11/25/2023 Lab Requisition [facility] Pathology & Laboratory Medicine - [facility] [address] [place] [address] Outr Resulting Lab, Provider Social History Tobacco [...] 4th Generation Negative Negative 11/25/2023 21:53 EDT [facility] Comment:If acute HIV-1 infec tion is suspected in a high risk patient, submit plasma specimen for HIV-1 RNA quantitation test. Blood VENOUS BLOOD / Unknown 11/25/2023 8:28 EDT 11/25/2023 19:51 EDT Narrative [facility] - 11/25/2023 21:53 EDT Fourth Generation assay performed on the [employer] XPT. us Provider Outr Resulting Lab IMMUNOLOGY AND SEROL OGY ORDERABLES Final Result Performing Organization Address City/State/[facility] Co de Phone Number [facility] [address] [place] [phone] documented in this encounter Visit Diagnoses Not on filedocumented in this encounter Care Teams Windows Server Administrator Relationship Specialty Start Date End Date Samantha Escalante NP [address] [place] [address] [address] [place] [id number] PCP - General 01/07/22 documented as of this encounter
--- OUTSIDE RECORDS SUMMARY | 2024-06-01 01:50 | XMS_ITS | Encounter Summary ---
Author Organization [facility] [place] [address] Care Team Providers Care Electron Beam Welder Setter Name Role Phone Samantha Escalante APRN Primary Care Provider Encounter Details Date Type Department Care Team (Late st Contact Info) Description 06/22/2021 3:00 PM EST Office Visit Dermatology at [address] [phone] Willard Navarrete MD [address] [facility] [place] [address] Seborrheic keratoses Social History Tobacco Use Types [...] keratoses documented in this encounter Care Teams Electron Beam Welder Setter Relationship Specialty Start Date End Date Samantha Escalante APRN [address] [place] [address] [address] [place] [address] PCP - General Family Medicine 10/06/17 documented as of this encounter
--- OUTSIDE RECORDS SUMMARY | 2024-06-01 01:50 | XMS_ITS | Encounter Summary ---
Author Organization [facility] [place] [address] Care Team Providers Care Bleacher Groundwood Pulp Name Role Phone Samantha Escalante APRN Primary Care Provider Encounter Details Date Type Department Care Team (Late st Contact Info) Description 07/21/2021 12:45 PM EDT Telephone Pre-Admission Testing at [facility] [address] [place] [address] Social History Tobacco Use Types [...] on filedocumented in this encounter Care Teams Bleacher Groundwood Pulp Relationship Specialty Start Date End Date Samantha Escalante APRN [address] [place] [address] [address] [facility] 1 [place] [address] PCP - General Family Medicine 10/06/17 documented as of this encounter
--- OUTSIDE RECORDS SUMMARY | 2024-06-01 01:50 | XMS_ITS | Encounter Summary ---
Author Organization [facility] [place] [address] Care Team Providers Care Soft Mud Molder Name Role Phone Samantha Escalante APRN Primary Care Provider Encounter Details Date Type Department Care Team (Late st Contact Info) Description 04/01/2020 7:38 AM EST Hospital Encounter Non-[place] [address] Samantha Escalante APRN [address] [place], [place] [id number] Coronary artery disease, angina presence unspecified, unspecified vessel or lesion type, unspecified whether [place] or transplanted heart Discharge Disposition: Home Social [...] gemfibrozil (LOPID) 600 mg tablet 10/28/2009 10/13/2020 Dahlen-3 Fatty Acids-Fish Oil (FISH OIL OMEGA 3-6-9) 300-1,000 mg CpDR Take by mouth daily. 10/29/19 10 07/21/2021 documented as of this encounter Plan of Treatment Not on file documented as of this encounter Procedures Procedure Name Priority Date/Time Associated Diagnosis Comments NUCLEAR PHARMACOLOGIC STRESS CARDIOLOGY Routine 04/01/2020 9:16 AM EST Coronary artery disease, angina presence unspecified, unspecified vessel or lesion type, unspecified whether [place] or transplanted heart STRESS TEST SCAN 04/01/2020 [...] unspecified vessel or lesion type, unspecified whether [place] or transplanted heart documented in this encounter Care Teams Soft Mud Molder Relationship Specialty Start Date End Date Samantha Escalante APRN [address] [place], [place] [address]Y [facility] 1 [place] [address] PCP - General Family Medicine 10/06/17 documented as of this encounter
--- OUTSIDE RECORDS SUMMARY | 2024-06-01 01:50 | XMS_ITS | Encounter Summary ---
[place] [address] Care Team Providers Care Warehouse Selector Name Role Phone Samantha Escalante APRN Primary Care Provider [phone] Reason for Visit * Diagnostic Test (Routine) - Closed Specialty Diagnoses / Procedures Referred By Wai t Referred To Contact Radiology Diagnoses Coronary artery disease, angina presence unspecified, unspecified vessel or lesion type, unspecified whether [place] or transplanted heart Procedures NM Pharmacologic Stress and Rest Myocardial Perfusion Samantha Escalante APRN [address] [place] [address] [place] [address] Referral ID Status Reason Start Date Expiration Date V isits Requested Visits Authorized [id number] Closed Specialty Service Requested 12/27/2019 06/23/2020 1 1 Encounter Details Date Type Department Care Team (Late st Contact Info) Description 04/01/2020 7:38 AM EST Hospital Encounter [place] [address] Samantha Escalante APRN [address] [place], [place] [id number] Discharge Disposition: Home Social History Tobacco Use [...] gemfibrozil (LOPID) 600 mg tablet 10/28/2009 10/13/2020 [place]-3 Fatty Acids-Fish Oil (FISH OIL OMEGA 3-6-9) [...] unspecified vessel or lesion type, unspecified whether [place] or transplanted heart documented in this encounter [...] Arm documented in this encounter Care Teams Warehouse Selector Relationship Specialty Start Date End Date Kikearely Samantha, CHACE [address] [place] [address] PCP - General Family Medicine 10/06/17 documented as of this encounter
--- OUTSIDE RECORDS SUMMARY | 2024-06-01 01:50 | XMS_ITS | Encounter Summary ---
Author Organization [facility] [place] [address] Care Team Providers Care Head Of Marketing Adometry Name Role Phone Samantha Escalante APRN Primary Care Provider Encounter Details Date Type Department Care Team (Late st Contact Info) Description 07/17/2021 External Results Pre-Admission Testing at [facility] [address] [place] [phone] Social History Tobacco Use Types Packs/Day Years [...] filedocumented in this encounter Care Teams Head Of Marketing Adometry Relationship Specialty Start Date End Date Samantha Escalante APRN [address] [place] [address] PCP - General Family Medicine 10/06/17 documented as of this encounter
--- OUTSIDE RECORDS SUMMARY | 2024-06-01 01:50 | XMS_ITS | Encounter Summary ---
Author Organization [facility] [place] [address] Care Team Providers Care Repack Room Worker Name Role Phone Samantha Escalante APRN Primary Care Provider Encounter Details Date Type Department Care Team (Late st Contact Info) Description 01/26/2022 Ancillary Procedure Radiology at [facility] [address] [place] [address] Jacinto Apodaca MD [address] [facility] [place] [address] Social History Tobacco Use Types Packs/Day Years [...] is for storage only. Jacinto Apodaca MD [facility] FILM LIBRARY ORD ERABLES [place], [place] documented in this encounter Visit Diagnoses Not on filedocumented in this encounter Care Teams Repack Room Worker Relationship Specialty Start Date End Date Samantha Escalante APRN [address] [place] [address] PCP - General Family Medicine 10/06/17 documented as of this encounter
--- OUTSIDE RECORDS SUMMARY | 2024-06-01 01:50 | XMS_ITS | Encounter Summary ---
Author Organization [facility] [place] [address] Care Team Providers Care Blood Donor Recruiter Supervisor Name Role Phone Samantha Escalante APRN Primary Care Provider Encounter Details Date Type Department Care Team (Late st Contact Info) Description 04/09/2021 4:30 PM EST Ancillary Procedure Radiology Library at [facility] [place] [phone] Samantha Escalante APRN [address] [place], [place] [address] Social History Tobacco Use Types Packs/Day Years [...] MR Spine (04/09/2021 4:29 PM EST) Narrative [facility] - 04/09/2021 4:29 PM EST This exam is auto-finalizing. It's purpose is for storage only. Samantha Escalante APRN IMG FILM LIBRARY OR DERABLES [place], [place] documented in this encounter Visit Diagnoses Not on filedocumented in this encounter Care Teams Blood Donor Recruiter Supervisor Relationship Specialty Start Date End Date Samantha Escalante APRN [address] [place] [address] PCP - General Family Medicine 10/06/17 documented as of this encounter
--- OUTSIDE RECORDS SUMMARY | 2024-06-01 01:50 | XMS_ITS | Clinical Summary ---
Author Organization [facility] Address [address] [place] [address] Care Team Providers Care Electrical High Tension Tester Name Role Phone Kikearely Samantha DELIA Primary Care Provider [phone] Social History Tobacco Use Types Packs/Day Years [...] (1 - 1-dose 75+ series) 12/04/2031 Insurance [facility] Care Teams Electrical High Tension Tester Relationship Specialty Start Date End Date Samantha Escalante NP [address] [place] [address] [address] [place] [address] [facility] - General 01/07/22
--- OUTSIDE RECORDS SUMMARY | 2024-06-01 01:50 | XMS_ITS | Encounter Summary ---
[place] [address] Care Team Providers Care Purchasing Manager Name Role Phone Samantha Escalante APRN Primary Care Provider [phone] Encounter Details Date Type Department Care Team (Late st Contact Info) Description 05/21/2022 Telephone Obstetrics [place] [phone] [place] Social History Tobacco Use Types [...] on filedocumented in this encounter Care Teams Purchasing Manager Relationship Specialty Start Date End Date Samantha Escalante APRN [address] [place] [address] PCP - General Family Medicine 10/06/17 documented as of this encounter
--- OUTSIDE RECORDS SUMMARY | 2024-06-01 01:50 | XMS_ITS | Encounter Summary ---
Author Organization [facility] Address [address] [place] [address] Care Team Providers Care Ice Skating Teacher Name Role Phone ElaineSamantha worthington DLEIA Primary Care Provider [phone] Encounter Details Date Type Department Care Team (Late st Contact Info) Description 11/02/2023 Lab Requisition [facility] Pathology & Laboratory Medicine - [facility] [address] [place] [address] Klever Mcneal MD [address] [place] [address], [address] [place], [place] [address] Iron deficiency anemia, unspecified Social History Tobacco [...] explore management options, if applicable. 11/03/2023 16:36 [facility] Final Diagnosis A. [...] POLYP, BIOPSY: - Hyperplastic polyp. 11/03/2023 16:36 [facility] Attestation By the signature below, the attending physician certifies that they have 1) personally conducted a gross and/or microscopic examination of the described specimen(s), and/or personally interpreted the results of laboratory testing of the described specimen(s), and 2) personally rendered or confirmed the above diagnosis. 11/03/2023 16:36 [facility] at 1636 Clinical History Anemia, Alford's esophagus, colon polyps, gastritis 11/03/2023 16:36 [facility] Gross Description A. [...] Emily Arron 11/03/2023 7:58 11/03/2023 16:36 EDT [facility] Performing Lab [facility] 11/03/2023 16:36 EDT [facility] Scanned Images 11/03/2023 16:36 EDT [facility] Tissue POLYP OF COLON [...] Mcneal MD PATHOLOGY ORDERABLES Final Resu lt [facility] [address] [place] [address] documented in this encounter Visit Diagnoses Diagnosis Iron deficiency anemia, unspecified documented in this encounter Care Teams Ice Skating Teacher Relationship Specialty Start Date End Date Samantha Escalante NP [address] [place] [address] [address] [place] [phone] PCP - General 01/07/22 documented as of this encounter
--- OUTSIDE RECORDS SUMMARY | 2024-06-01 01:50 | XMS_ITS | Encounter Summary ---
Author Organization [facility] [place] [address] Care Team Providers Care Jack Spinner Name Role Phone Samantha Escalante APRN Primary Care Provider Encounter Details Date Type Department Care Team (Late st Contact Info) Description 06/04/2021 11:30 AM EST Office Visit Dermatology at [address] [phone] Willard Parra MD [address] [facility] [place] [address] Seborrheic keratosis, inflamed; Seborrheic keratoses Social History [...] skin checkup, and [facility] of [place] irritated seborrheic keratoses , [...] largest ones have resolved following treatment at [facility], all except 1. She has numerous small [...] keratoses documented in this encounter Care Teams Jack Spinner Relationship Specialty Start Date End Date Samantha Escalante APRN [address] [place] [address] PCP - General Family Medicine 10/06/17 documented as of this encounter
--- OUTSIDE RECORDS SUMMARY | 2024-06-01 01:50 | XMS_ITS | Encounter Summary ---
Author Organization [facility] [place] [address] Care Team Providers Care Assistant Athletic Trainer Name Role Phone Samantha Escalante APRN Primary Care Provider Encounter Details Date Type Department Care Team (Latest Contact Info) Description 06/11/2022 12:00 PM EST Laboratory [place] [address] Pelvic mass in female Social History Tobacco [...] 12:40 PM EST) T&S only valid at [facility] LABORATORY Comment:This Type and Screen result is only valid at the [facility] Blood 06/11/2022 12:4 0 PM EST 06/11/2022 12:45 PM EST Narrative Resulting Agency Comment Spec In Lab Tonia Eli MD BLOOD BANK LAB ORD ERABLES Performing Organization Address City/[facility]/ZIP Co de Phone Number [facility] [place] [address] * ABORH Recheck Status (06/11/2022 12:40 PM EST) ABORH Recheck Order Order Placed [facility] ABORH Type Recheck Complete [facility] Blood 06/11/2022 12:4 0 PM EST 06/11/2022 12:45 PM EST Narrative Resulting Agency Comment Spec In Lab Tonia Eli MD BLOOD BANK LAB ORD ERABLES [facility] [place] [address] * (ABNORMAL) Differential, Automated (06/11/2022 12:40 PM EST) Neutrophil % 49.8 % [facility] Neutrophil Absolute 3.44 1.70 - 6.10 x10(3)/[facility] LABORATORY Lymph % 37.2 % [facility] Lymphocytes Abs 2.6 0.9 - 3.2 x10(3)/[facility] LABORATORY Monocyte % 9.4 % [facility] Monocyte Abs 0.6 0.3 - 0.9 x10(3)/[facility] LABORATORY Eos % 1.5 % [facility] Eosinophils Abs 0.1 0.0 - 0.4 x10(3)/[facility] LABORATORY Basophil % 1.2 % [facility] Baso Absolute 0.1 0.0 - 0.1 x10(3)/[facility] LABORATORY Immature Gran % 0.90 % [facility] Comment: Immature granulocytes(IG's)percentage and absolute count will include metamyelocytes, myelocytes, and promyelocytes. Blood smears from CBCs yielding IG's will be scanned manually for concordance. If this scan disagrees with the automated IG or if promyelocytes are noted, a manual differential will be performed. Immature Gran Absolute 0.06(H) 0.00 - 0.04 x10(3)/[facility] LABORATORY Blood 06/11/2022 12:4 0 PM EST 06/11/2022 12:54 PM EST Narrative Resulting Agency Comment Spec In Lab Tonia Eli MD HEMATOLOGY ORDERAB LES [facility] [place] [address] * Hemogram (06/11/2022 12:40 PM EST) White Blood Cell 6.9 4.0 - 9.5 x10(3)/[facility] LABORATORY Red Blood Cell 4.84 4.00 - 5.21 x10(6)/[facility] LABORATORY Hemoglobin 14.0 11.7 - 15.5 g/dL [facility] Hematocrit 42.9 35.7 - 45.8 % [facility] Mean Cell Volume 88.6 82.6 - 94.4 fL [facility] Mean Cell Hemoglobin 28.9 27.1 - 32.0 pg [facility] Mean Cell Hemoglobin Concentration 32.6 31.7 - 35.0 g/dL [facility] Platelet 283 145 - 357 x10(3)/[facility] LABORATORY RDW Standard Deviation 44.7 37.0 - 46.0 fL [facility] RDW coefficient of variation 13.7 11.5 - 14.1 % [facility] Mean Platelet Volume 9.5 7.6 - 12.9 fL [facility] NRBC% auto 0.0 % [facility] NRBC Absolute 0.000 0.000 - 0.000 x10(3)/[facility] LABORATORY Blood 06/11/2022 12:4 0 PM EST 06/11/2022 12:54 PM EST Narrative Resulting Agency Comment Spec In Lab Tonia Eli MD HEMATOLOGY ORDERAB LES Performing Organization Address City/[facility]/ZIP Co de Phone Number [facility] [place] [address] * Antibody screen (06/11/2022 12:40 PM EST) Pathologist [facility] Ab Screen Interp Negative [facility] Expires at [id number] on: 06/24/2022 [facility] Comment: Corrected from 07/08/22 0:00:00 EST [Unknown] on 06/15/22 14:20:48 EST by Dusty Dc Blood 06/11/2022 12:4 0 PM EST 06/11/2022 12:45 PM EST Narrative Resulting Agency Comment Spec In Lab Tonia Eli MD BLOOD BANK LAB ORD ERABLES Performing Organization Address City/[facility]/ZIP Co de Phone Number [facility] [place] [address] * ABO/Rh Typing (06/11/2022 12:40 PM EST) Pathologist [facility] ABORH Type O Pos [facility] Blood 06/11/2022 12:4 0 PM EST 06/11/2022 12:45 PM EST Narrative Resulting Agency Comment Spec In Lab Tonia Eli MD BLOOD BANK LAB ORD ERABLES [facility] [place] [address] * (ABNORMAL) Comprehensive metabolic panel (non-fasting) (06/11/2022 12:40 PM EST) Glucose 90 65 - 199 mg/dL [facility] Comment:Diabetes: >=200 mg/d L plus symptoms Blood Urea Nitrogen 11 8 - 18 mg/dL [facility] Creatinine 0.75 0.70 - 1.20 mg/dL [facility] Sodium 137 135 - 145 mmol/L [facility] Potassium 4.7 3.5 - 5.0 mmol/L [facility] Comment: Please note: ??Patients with WBC >100,000 may have falsely elevated Potassium levels. ??For accurate Potassium quantification in these patients send serum separator tube (gold top) for subsequent determinations. ??Contact the Clinical Chemistry Laboratory if there are any questions. Chloride 100 98 - 107 mmol/L [facility] Carbon Dioxide 26 22 - 31 mmol/L [facility] Anion Gap 11 5 - 15 mmol/L [facility] Calcium 10.3 8.5 - 10.5 mg/dL [facility] Protein, Total 7.8 6.1 - 8.0 g/dL [facility] Albumin 4.8 3.2 - 5.2 g/dL [facility] Aspartate Aminotransferase 38(H) 0 - 30 unit/L [facility] Alanine Aminotransferase 53(H) 0 - 30 unit/L [facility] Alkaline Phosphatase 54 35 - 105 unit/L [facility] Bilirubin, Total 0.3 0.2 - 1.3 mg/dL [facility] Est Glomerular Filtration Rate 88 >=60 mL/min/1. 73 m?? [facility] Comment: This patient's estimated GFR [...] MD CHEMISTRY ORDERABL ES Performing Organization Address [facility] Co de Phone Number [facility] [place] [address] * CEA (06/11/2022 12:40 PM EST) Carcinoembryonic Antigen 0.7 <=3.8 ng/mL [facility] Comment: Reference range: ??(20-69 years): [...] MD CHEMISTRY ORDERABL ES Performing Organization Address [facility] Co de Phone Number [facility] [place] [address] * Carbohydrate Antigen 19-9 (06/11/2022 12:40 PM EST) CA 19-9 7.4 <=35.0 u/ml [facility] Comment: This result was generated using a Jose E La immunoassay. ??Results obtained from other methods or manufacturers cannot be used interchangeably with this method. Blood 06/11/2022 12:4 0 PM EST 06/11/2022 12:54 PM EST Narrative Resulting Agency Comment Spec In Lab Tonia Eli MD CHEMISTRY ORDERABL ES [facility] [address] documented in this encounter Visit Diagnoses Diagnosis Pelvic mass in female Abdominal or pelvic swelling, mass or lump, unspecified site documented in this encounter Care Teams Assistant Athletic Trainer Relationship Specialty Start Date End Date Samantha Escalante APRN [address] [place] [address] PCP - General Family Medicine 10/06/17 documented as of this encounter
--- OUTSIDE RECORDS SUMMARY | 2024-06-01 01:50 | XMS_ITS | Encounter Summary ---
Author Organization [facility] Address [address] [place] [address] Care Team Providers Care Sales Representative Advertising Name Role Phone ElaineSamantha worthington DELIA Primary Care Provider [phone] Encounter Details Date Type Department Care Team (Late st Contact Info) Description 02/17/2022 Lab Requisition [facility] Pathology & Laboratory Medicine - [facility] [address] [place] [address] Geovany Ibrahim MD [address] [place] [address] [place] [address] Encounter for other general examination Social History [...] explore management options, if applicable. 02/22/2022 10:11 [facility] Final Diagnosis A. DUODENUM, BIOPSY: [...] of hyperplastic polyps, 12 fragments. 02/22/2022 10:11 [facility] Diagnosis Comment H pylori (Rabbit Monoclonal (SP48), [place]): Performed on blacks A and B, positive [...] high complexity clinical laboratory testing. 02/22/2022 10:11 [facility] Attestation There was significan t resident/fellow involvement in the diagnostic evaluation of this case. By the signature below, the attending physician certifies that they have personally conducted a gross and/or microscopic examination of the described specimens and rendered or confirmed the above diagnosis. 02/22/2022 10:11 [facility] at 1011 Clinical History Anemia, h/o Alford's esophagus, h/o colon polyps 02/22/2022 10:11 [facility] Gross Description A. [...] G1-G3. MIKI LANG(ASCP) 02/17/2022 19:27 02/22/2022 10:11 [facility] Resident/Fell ow: Bertin Peña DO 02/22/2022 10:11 EDT [facility] Performing Lab [facility] 02/22/2022 10:11 EDT [facility] Scanned Images 02/22/2022 10:11 EDT [facility] Tissue SPECIMEN FROM RECTUM [...] Ibrahim MD PATHOLOGY ORDERABLES Fin al Result [facility] [address] [place] [address] documented in this encounter Visit Diagnoses Diagnosis Encounter for other general examination documented in this encounter Care Teams Sales Representative Advertising Relationship Specialty Start Date End Date Samantha Escalante NP [address] [place] [id number] PCP - General 01/07/22 documented as of this encounter
--- OUTSIDE RECORDS SUMMARY | 2024-06-01 01:50 | XMS_ITS | Encounter Summary ---
Author Organization [facility] Address [address] [place] [address] Care Team Providers Care Boot Trimmer Name Role Phone Rajat Roca MD Primary Care Provider [phone] Samantha Escalante NP Primary Care Provider [phone] Encounter Details Date Type Department Care Team (Late st Contact Info) Description 01/05/2022 Lab Requisition [facility] Pathology & Laboratory Medicine - [facility] [address] [place] [address] Ming Dhillon Jr., MD [address] [place] [phone] Encounter for other general examination Social [...] [facility] Performing Lab [facility] 01/17/2022 22:15 [facility] Scanned Images 01/17/2022 22:15 [facility] Tissue SOFT TISSUE / Unknown 01/05/2022 11:36 EDT 01/05/2022 17:00 EDT us Ming Dhillon Jr., MD PATHOLOGY ORDER CHAY[place]O Final Result [facility] [address] [place] [address] documented in this encounter Visit Diagnoses Diagnosis Encounter for other general examination documented in this encounter Care Teams Boot Trimmer Relationship Specialty Start Date End Date Rajat Roca MD [address] [place] [address] PCP - General 04/20/16 01/06/22 Samantha Escalante NP [address] [place] [address] PCP - General 01/07/22 documented as of this encounter
--- OUTSIDE RECORDS SUMMARY | 2024-06-01 01:50 | XMS_ITS | Encounter Summary ---
Author Organization [facility] [place] [address] Care Team Providers Care Floor Polisher Name Role Phone Samantha Escalante APRN Primary Care Provider Reason for Visit * Consultation (Routine) - Closed Specialty Diagnoses / Procedures Referred By Wai del castillo Referred To Contact Gastroenterology Diagnoses Alford's esophagus Procedures Consult Samantha Escalante APRN [address] [place] [address] [facility] [address] [place] [address] Referral ID Status Reason Start Date Expiration Date Visits Re quested Visits Authorized [id number] Closed 03/12/2020 03/12/2021 1 1 Encounter Details Date Type Department Care Team (Late st Contact Info) Description 10/13/2020 1:00 PM EDT Office [place] [address] Thania Lau MD [facility] [place] [address] RUQ pain Social History Tobacco [...] from the original note were not included. [facility] Division of Gastroenterology and Hepatology Outpatient Consultation [...] TAKE 1 TABLET BY MOUTH DAILY ??? Cypress-3 Fatty Acids-Fish Oil (FISH OIL OMEGA 3-6-9) 300-1,000 mg CpDR (Patient not taking: No sig reported) No current facility-administered medications for this visit. Allergies Allergen Reactions ??? Omeprazole Other reaction(s): Rash, itching all over ??? Qngwmox-Amj-Frb Reductase Inhibitors Other reaction(s): MUSCLE ACHES ??? [...] of caffeine and chocolate -BE surveillance due 9637-9691 -RTC 3 months This case was discussed with Dr. Percy Lau MD Fellow in Gastroenterology and Hepatology [place] [id number] P: [phone] F: [phone] CC Samantha Escalante APRN [address] [place] [address] * Thiago Greer MD - 10/13/2020 1:00 [...] quadrant documented in this encounter Care Teams Floor Polisher Relationship Specialty Start Date End Date Samantha Escalante APRN [address] [place] [address] PCP - General Family Medicine 10/06/17 documented as of this encounter
--- OUTSIDE RECORDS SUMMARY | 2024-06-01 01:50 | XMS_ITS | Encounter Summary ---
Author Organization [facility] [place] [address] Care Team Providers Care Financial Investment Manager Name Role Phone Samantha Escalante APRN Primary Care Provider [phone] Reason for Visit * Reason Comments Skin Lesion Encounter Details Date Type Department Care Team (Late st Contact Info) Description 09/15/2020 11:00 AM EDT Office Visit Dermatology at [address] [address] Frieda Bermudez MD [facility] DR CHERISE [place] [address] Seborrheic keratosis, inflamed; Inflamed skin tag Social [...] by: Frieda Bermudez MD Resident in Dermatology [facility] Cosigned by: Piero Marc MD Department of Dermatology [facility] * Piero Marc III, MD - 09/15/2020 [...] skin documented in this encounter Care Teams Financial Investment Manager Relationship Specialty Start Date End Date Samantha Escalante APRN [address] [place] [address] PCP - General Family Medicine 10/06/17 documented as of this encounter
--- OUTSIDE RECORDS SUMMARY | 2024-06-01 01:50 | XMS_ITS | Encounter Summary ---
[place] [address] Care Team Providers Care Corrugator Helper Name Role Phone Samantha Escalante APRN Primary Care Provider Reason for Referral * Diagnostic Test (Routine) - Closed Specialty Diagnoses / Procedures Referred By Wai del castillo Referred To Contact Radiology Diagnoses Coronary artery disease, angina presence unspecified, unspecified vessel or lesion type, unspecified whether [place] or transplanted heart Procedures NM Pharmacologic Stress CT Component Samantha Escalante APRN [address] [place] [address] [place] [address] Referral ID Status Reason Start Date Expiration Date V isits Requested Visits Authorized [id number] Closed Specialty Service Requested 12/27/2019 06/23/2020 1 1 Reason for Visit * Diagnostic Test (Routine) - Closed Specialty Diagnoses / Procedures Referred By Wai del castillo Referred To Contact Radiology Diagnoses Coronary artery disease, angina presence unspecified, unspecified vessel or lesion type, unspecified whether [place] or transplanted heart Procedures NM Pharmacologic Stress CT Component Samantha Escalante APRN [email or web address] [place] [address] [place] [address] Referral ID Status Reason Start Date Expiration Date V isits Requested Visits Authorized [id number] Closed Specialty Service Requested 12/27/2019 06/23/2020 1 1 Encounter Details Date Type Department Care Team (Late st Contact Info) Description 04/01/2020 7:39 AM EST - 04/01/2020 11:59 PM EST Hospital En[place] [address] Samantha Escalante, YARD CONDUCTOR [address] [place], [place] [address] Coronary artery disease, angina presence unspecified, unspecified vessel or lesion type, unspecified whether [place] or transplanted heart Discharge Disposition: Home Social [...] gemfibrozil (LOPID) 600 mg tablet 10/28/2009 10/13/2020 Silt-3 Fatty Acids-Fish Oil (FISH OIL OMEGA 3-6-9) [...] unspecified vessel or lesion type, unspecified whether [place] or transplanted heart documented in this encounter [...] ? Electronically signed by: Silvestre Salmeron MD, [facility] ([phone]), at 04/01/2020 11:47 AM Procedure Note Silvestre [...] below. Electronically signed by: Silvestre Salmeron MD, [facility]([phone]), at 04/01/2020 11:47 AM Samantha Escalante YARD CONDUCTOR IMG NM ORDERABLES documented in this encounter Visit Diagnoses Diagnosis Coronary artery disease, angina presence unspecified, unspecified vessel or lesion type, unspecified whether [place] or transplanted heart documented in this encounter Care Teams Corrugator Helper Relationship Specialty Start Date End Date Samantha Escalante APRN [address] [place] [address] PCP - General Family Medicine 10/06/17 documented as of this encounter
--- OUTSIDE RECORDS SUMMARY | 2024-06-01 01:50 | XMS_ITS | Encounter Summary ---
Author Organization [facility] [place] [address] Care Team Providers Care Staff Weapons Officer Name Role Phone Samantha Escalante APRN [...] on filedocumented in this encounter Care Teams Staff Weapons Officer Relationship Specialty Start Date End Date Samantha Escalante APRN [address] [place] [address] PCP - General Family Medicine 10/06/17 documented as of this encounter
--- OUTSIDE RECORDS SUMMARY | 2024-06-01 01:50 | XMS_ITS | Encounter Summary ---
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, lumbar region SPONDYLOSIS DDD Procedures PRO LAMINEC/FACETECT/FORAMIN, LUMBAR 1 SEG LAMINECTOMY, FACETECTOMY & FORAMINOTOMY,LUMBAR, ONE LEVEL (WRVU 15.37) Referral ID Status Reason Start Date Expiration Date Visits Re quested Visits Authorized [id number] 1 1 Encounter Details Date Type Department Care Team (Late st Contact Info) Description 08/05/2021 1:35 PM EDT Ancillary Procedure Radiology Xray at [facility] [place] [address] Social History Tobacco Use Types Packs/Day Years [...] on filedocumented in this encounter Care Teams Office Machine Embossograph Operator Relationship Specialty Start Date End Date Ava CHACE Singh [address] [place] [address] PCP - General Family Medicine 10/06/17 documented as of this encounter
--- OUTSIDE RECORDS SUMMARY | 2024-06-01 01:50 | XMS_ITS | Encounter Summary ---
Author Organization [facility] [address] Care Team Providers Care Beam Racker Name Role Phone Samantha Escalante APRN Primary Care Provider Encounter Details Date Type Department Care Team (Late st Contact Info) Description 04/15/2022 Ancillary Procedure Radiology Library at [facility] [place] [place] [address] Samantha Escalante APRN [address] [place] [address] Social History Tobacco Use Types [...] Ultrasound Study (04/15/2022 12:00 AM EST) Narrative [facility] - 04/20/2022 9:12 AM EST This exam is auto-finalizing. It's purpose is for storage only. Samantha Escalante APRN IMG FILM LIBRARY OR DERABLES [place], [place] documented in this encounter Visit Diagnoses Not on filedocumented in this encounter Care Teams Beam Racker Relationship Specialty Start Date End Date Samantha Escalante APRN [address] [place] [address] PCP - General Family Medicine 10/06/17 documented as of this encounter
--- OUTSIDE RECORDS SUMMARY | 2024-06-01 01:50 | XMS_ITS | Encounter Summary ---
Author [place] [address] Care Team Providers Care Patient Support Representative Name Role Phone Samantha Escalante APRN Primary Care Provider Encounter Details Date Type Department Care Team (Late st Contact Info) Description 05/24/2022 Telephone [place] [phone] Gerard Urena Social History Tobacco Use Types [...] on filedocumented in this encounter Care Teams Patient Support Representative Relationship Specialty Start Date End Date Samantha Escalante APRN [address] [place] [address] PCP - General Family Medicine 10/06/17 documented as of this encounter
--- OUTSIDE RECORDS SUMMARY | 2024-06-01 01:50 | XMS_ITS | Encounter Summary ---
Author Organization [facility] [place] [address] Care Team Providers Care Streetcar Operator Name Role Phone Samantha Escalante APRN Primary Care Provider Reason for Visit * Reason Comments Skin Check * Consultation (Routine) - Specialty Diagnoses / Procedures Referred By Wai del castillo Referred To Contact Dermatology Diagnoses Other seborrheic keratosis Seborrheic keratosis Procedures Consult Samantha Escalante APRN [address] [place] [address] Willard Parra MD [address] [place] [address], [facility] [place] [address] Referral ID Status Reason Start Date Expiration Date V isits Requested Visits Authorized [id number] 09/28/2017 09/28/2018 1 1 Encounter Details Date Type Department Care Team (Late st Contact Info) Description 04/14/2018 11:00 AM EST Office Visit Dermatology at [address] [address] Willard Parra MD [address] [place] [address], [facility] A DERMATOLOGY [place], [place] [id number] Seborrheic keratosis Social History Tobacco Use Types [...] 1. Patient given informational brochure from the [employer] about seborrheic keratoses 2. [...] keratosis documented in this encounter Care Teams Streetcar Operator Relationship Specialty Start Date End Date Samantha Escalante APRN [address] [place] [address] PCP - General Family Medicine 10/06/17 documented as of this encounter
--- OUTSIDE RECORDS SUMMARY | 2024-06-01 01:50 | XMS_ITS | Encounter Summary ---
Author Organization [facility] [place] [address] Care Team Providers Care Bridge Inspector Name Role Phone Samantha Escalante APRN Primary Care Provider [phone] Reason for Visit * Reason Comments Follow-up Skin Lesion Encounter Details Date Type Department Care Team (Late st Contact Info) Description 10/13/2020 2:20 PM EDT Office Visit Dermatology at [address] [phone] Petros Druand MD Seborrheic keratosis, inflamed Social History Tobacco [...] very itchy and bothersome. Last visit at [facility] Derm: 09/15/2020 Last visit with [...] ??? N/A RTC: PRN []Note routed to paralegal legal secretary []Recall has been placed in scheduling system []Appointment scheduled at checkout Scribe attestation: ELSIE Armstrong who has performed the documentation for this encounter in the presence of and acting as a scribe for Petros Durand MD. I performed the above scribed service and agree with the accuracy of the documentation in this encounter. Reviewed and signed by: Petros Durand MD Dermatology [facility] Patient seen and evaluated with staff truer pinion and wheel: Cheyenne Bradford MD Dermatology [facility] * Cheyenne Bradford MD - [...] keratosis documented in this encounter Care Teams Bridge Inspector Relationship Specialty Start Date End Date Samantha Escalante APRN [address] [place] [address] PCP - General Family Medicine 10/06/17 documented as of this encounter
--- OUTSIDE RECORDS SUMMARY | 2024-06-01 01:50 | XMS_ITS | Encounter Summary ---
Author Organization [facility] Address [address] [place] [address] Care Team Providers Care Occupational Therapy Teacher Name Role Phone Rajat Roca MD Primary Care Provider [phone] Samantha Escalante NP Primary Care Provider [phone] Encounter Details Date Type Department Care Team (Late st Contact Info) Description 09/14/2019 Lab Requisition [facility] Pathology & Laboratory Medicine - [facility] [address] [place] [address] Outr Resulting Lab, Provider Social History Tobacco [...] Priority Date/Time Associated Diagnosis Comments ZZCOVID-19 TEST [facility] PCR Today 09/14/2019 13:57 EDT COVID-19 TESTING Routine 09/14/2019 13:5 7 EDT documented in this encounter Results * COVID-19 TEST [facility] PCR (09/14/2019 13:57 EDT) Swab ENTIRE NASOPHARYNX / Unknown 09/14/2019 13:57 EDT 09/16/2019 16:17 EDT Narrative [facility] - 09/17/2019 15:46 EDT Delay in testing. Potential for false negative results. us Provider Outr Resulting Lab MICROBIOLOGY - GENER AL ORDERABLES Final Result Performing Organization Address [facility] Co de Phone Number [facility] [address] [place] [address] * COVID-19 TESTING (09/14/2019 13:57 EDT) COVID-19 rt-PCR Result Negative Negative 09/17/2019 15:46 EDT [facility] Comment: Delay in testing. Potential for false negative results. Negative results do not preclude 2019-nCoV infection and should not be used as the sole basis for treatment or other patient management decisions. Negative results must be combined with clinical observations, patient history, and epidemiological information. This test was developed and its performance characteristics determined by [facility]. It has not been cleared or approved [...] by the FDA Performed on the [employer] Fast. Performing Lab [facility] 09/17/2019 15:46 EDT [facility] Swab ENTIRE NASOPHARYNX / Unknown 09/14/2019 13:57 EDT 09/16/2019 16:17 EDT us Provider Outr Resulting Lab MICROBIOLOGY - GENER AL ORDERABLES Final Result Performing Organization Address City/[facility]/ZIP Co de Phone Number [facility] [address] [place] [address] documented in this encounter Visit Diagnoses Not on filedocumented in this encounter Care Teams Occupational Therapy Teacher Relationship Specialty Start Date End Date Rajat Roca MD [address] [place] [address] PCP - General 04/20/16 01/06/22 Samantha Escalante NP [address] [place], [place] [address]Y [address] [place] [id number] PCP - General 01/07/22 documented as of this encounter
--- OUTSIDE RECORDS SUMMARY | 2024-06-01 01:50 | XMS_ITS | Encounter Summary ---
Author Organization [facility] [place] [address] Care Team Providers Care Amusement Equipment Operator Name Role Phone Samantha Escalante APRN [...] Expiration Date Visits Re quested Visits Authorized [id number] 1 1 Encounter Details Date Type Department Care Team (Latest Contact Info) Description 08/05/2021 12:46 PM EDT - 08/05/2021 6:56 PM EDT Hospital Encounter Post Acute Care Unit at [facility] Karla [address] [place] [address] Jacinto Apodaca MD [address] [place] [address] Lumbar spondylosis Discharge Disposition: Home Social History [...] six weeks after surgery with a Physician???s Switchboard Operator Receptionist at the surgeon???s office. You will have [...] when to stop taking it. Only take [id number]-uvzwhaa or prescription medicine for pain, discomfort or [...] If you have any questions, please call [facility] Neurology and Neurosurgery at [phone], during business hours of Tuesday through Tuesday from 8:00 a.m. until 4:00 p.m. In case of emergency during non-business hours, please call the same main number and follow the prompts to page the neurosurgeon bone crusher. SMOKING CESSATION INFORMATION: DC QUITLINE: PR QUITLINE: www.quitnet.com If you smoke, stop now! Smoking may impede healing. MAKE SURE YOU: Understand these instructions. Will seek medical care if you are feeling poor, or get worse. Will call the surgeon???s office with any questions or concerns at : [phone] Nursing information only: Original document to medical [...] Apodaca MD - 08/05/2021 3:03 PM EDT [facility] [place] [address] Patient Name: Lynda Pedersen : [id number] MR#: [id number] Case Date: 08/05/2021 Case Scheduled Time: 1421 Surgeon: Surgeon(s) and Role: * Jacinto Apodaca MD - Primary * Franki Mills PA - Physician Switchboard Operator Receptionist Preoperative diagnosis: SPONDYLOSIS DDD Postoperative diagnosis: SPONDYLOSIS DDD Actual procedure: Right L5-S1 hemilaminectomy, medial facetectomy, lateral recess decompression, [id number], microsurgical discectomy. Use of the high- powered [...] the duration of the operative session. The resident programs assistant adequately prepped the operative site and [...] PM EDT Laminec/Facetect/Fo alissa, Lumbar 1 Seg ([id number]) 08/05/2021 2:41 PM EDT SPONDYLOSIS DDD documented [...] (Due) documented in this encounter Care Teams Amusement Equipment Operator Relationship Specialty Start Date End Date Samantha Escalante APRN [address] [place] [address] PCP - General Family Medicine 10/06/17 documented as of this encounter
--- OUTSIDE RECORDS SUMMARY | 2024-06-01 01:50 | XMS_ITS | Encounter Summary ---
Author Organization [facility] [place] [address] Care Team Providers Care Shoemaking Cutter Name Role Phone Samantha Escalante APRN Primary Care Provider Encounter Details Date Type Department Care Team (Late st Contact Info) Description 02/05/2021 Tele[place] [address] Bessie Dorman Social History Tobacco Use Types [...] on filedocumented in this encounter Care Teams Shoemaking Cutter Relationship Specialty Start Date End Date Samantha Escalante APRN [facility] [address] [place] [address] PCP - General Family Medicine 10/06/17 documented as of this encounter
--- OUTSIDE RECORDS SUMMARY | 2024-06-01 01:50 | XMS_ITS | Encounter Summary ---
[place] [address] Care Team Providers Care Inorganic Chemistry Professor Name Role Phone Samantha Escalante APRN Primary Care Provider [phone] Encounter Details Date Type Department Care Team (Late st Contact Info) Description 10/30/2008 Orders [place] [address] Jordan Dixon MD Social History Tobacco Use Types Packs/Day Years Used Date Smoking Tobacco: Never Assessed [facility] Inpatient Questions Answer Date Recorded [...] 9:14 AM EDT) Surgical Pathology Report [id number] ? Location: [facility] The signing pathologist has (i) examined the [...] on filedocumented in this encounter Care Teams Inorganic Chemistry Professor Relationship Specialty Start Date End Date Samantha Escalante APRN [address] [place] [address] [address] [place] [address] PCP - General Family Medicine 10/06/17 documented as of this encounter
--- OUTSIDE RECORDS SUMMARY | 2024-06-01 01:50 | XMS_ITS | Encounter Summary ---
[place] [address] Care Team Providers Care Corporation Officer Name Role Phone Samantha Escalante APRN Primary Care Provider Reason for Referral * Consultation (Routine) - Closed Specialty Diagnoses / Procedures Referred By Wai t Referred To Contact Obstetrics and Gynecology Diagnoses Cyst of right ovary Samantha Escalante APRN [address] [place] [address] [facility] Merchandise Complaint Adjuster [address] [place] [id number] Referral ID Status Reason Start Date Expiration Date V isits Requested Visits Authorized [id number] Closed Consult, Test & Treat PCP Updated and/or Approved 04/19/2022 04/19/2023 6 6 Encounter Details Date Type Department Care Team (Late st Contact Info) Description 04/19/2022 Transcribe Orders eDH Incoming Referrals [phone] Samantha Escalante APRN [address] [place], [place] [address] Cyst of right ovary Social History Tobacco Use Types Packs/Day Years Used Date Smoking Tobacco: Former Smokeless Tobacco: Never Sex and Gender Information Value Date Recorded Sex Assigned at Not on file Gender Identity Not on file Sexual Orientation Not on file documented as of this encounter Plan of Treatment Scheduled Referrals Name Type Priority Associated Diagnoses Orde r Schedule Referral to [facility] Out[facility] Referral Routine Cyst of right ovary Ordered: 04/19/2022 documented as of this encounter Visit Diagnoses Diagnosis Cyst of right ovary Other and unspecified ovarian cyst documented in this encounter Care Teams Corporation Officer Relationship Specialty Start Date End Date Samantha Escalante APRN [address] [place] [address] PCP - General Family Medicine 10/06/17 documented as of this encounter
--- OUTSIDE RECORDS SUMMARY | 2024-06-01 01:50 | XMS_ITS | Encounter Summary ---
Author Organization [facility] [place] [address] Care Team Providers Care Health Care Administrator Name Role Phone Samantha Escalante APRN [...] on filedocumented in this encounter Care Teams Health Care Administrator Relationship Specialty Start Date End Date Samantha Escalante APRN [address] [place], [place] [address] PCP - General Family Medicine 10/06/17 documented as of this encounter
--- OUTSIDE RECORDS SUMMARY | 2024-06-01 01:50 | XMS_ITS | Encounter Summary ---
Author Organization [facility] [place] [address] Care Team Providers Care Cut Out Machine Operator Name Role Phone Samantha Escalante APRN Primary Care Provider Reason for Visit * Consultation (Routine) - Closed Specialty Diagnoses / Procedures Referred By Wai del castillo Referred To Contact Dermatology Diagnoses Disorder of the skin and subcutaneous tissue, unspecified Samantha Escalante APRN [address] [place] [address] [facility] Dermatology [address] [place] [address] Referral ID Status Reason Start Date Expiration Date V isits Requested Visits Authorized [id number] Closed Consult, Test & Treat Connection Center PCP Updated and/or Approved 03/13/2020 03/13/2021 6 6 Encounter Details Date Type Department Care Team (Late st Contact Info) Description 04/04/2020 10:00 AM EST Office Visit Dermatology at [address] [place] [address] Roc Nugent MD [facility] DR CHERISE [place] [address] Dermatofibroma; Seborrheic keratoses; Seborrheic keratoses, [...] ??? gemfibrozil (LOPID) 600 mg tablet ??? [place]-3 Fatty Acids-Fish Oil (FISH OIL OMEGA 3-6-9) [...] Roc Nugent MD Resident in Dermatology [facility] Patient seen in conjunction with staff product designer: Piero Marc MD Department of Dermatology [facility] * Piero Marc III, MD - 04/04/2020 10:00 AM EST I was the supervising physician working with dermatology resident Dr. Nugent in the dermatology clinic during this patient visit. The level of resident supervision for this patient visit was indirectsupervision with direct supervision immediately available. (definition: [facility] [place] GME Policy Statement on Graduate Medical Education, [...] Report (04/04/2020 10:57 AM EST) Final Diagnosis [id number] ? Location: [facility] The signing pathologist has (i) examined the relevant preparation(s) for the specimen(s) and (ii) rendered or confirmed the diagnosis(es). . ?Surgical Pathology DIAGNOSIS Vertex scalp, skin shave biopsy ONLY: - ??Verrucous keratosis, inflamed Electronically signed by: ??Wu YA, PhD, Hitesh Verified: ??04/07/2020 ?Dermatopatholo gist Performed at: ??-[facility] [place] Dept. of Pathology, [place], [place] SPECIMEN(S) SUBMITTED A - vertex scalp, [...] labeled A1. ??lyric 04/07/2020 9:57 AM EST [facility] SPECIMEN FROM SKIN / Unknown 04/04/2020 10:57 AM EST 04/04/2020 10:57 AM EST Roc Nugent MD PATHOLOGY/CYTOLOGY O RDERABLES [facility] [place] [address] * Specimen to Pathology (04/04/2020 10:57 AM EST) AP Specimen 04/04/2020 10:5 7 AM EST 04/04/2020 10:57 AM EST Narrative [facility] - 04/04/2020 10:57 AM EST Specimen requisition ordered. ??Separate Pathology report to follow Piero Marc III, MD PATHOLOGY/CYTOL OGY ORDERABLES [facility] [place] [address] documented in this encounter Visit Diagnoses Diagnosis Dermatofibroma Benign neoplasm of skin, site unspecified Seborrheic keratoses Seborrheic keratoses, inflamed Neoplasm of uncertain behavior of skin documented in this encounter Care Teams Cut Out Machine Operator Relationship Specialty Start Date End Date Samantha Escalante APRN [address] [place] [address] [address] [place] [address] PCP - General Family Medicine 10/06/17 documented as of this encounter
--- OUTSIDE RECORDS SUMMARY | 2024-06-01 01:50 | XMS_ITS | Encounter Summary ---
Author Organization [facility] [place] [address] Care Team Providers Care Structures Technician Name Role Phone Samantha Escalante APRN Primary Care Provider Encounter Details Date Type Department Care Team (Late st Contact Info) Description 06/26/2021 Telephone Dermatology at [address] [place] [address] Marcela Arevalo RN Social History [...] on filedocumented in this encounter Care Teams Structures Technician Relationship Specialty Start Date End Date Ava SamanthaCHACE barrios [address] [place] [address] [address] [facility] [address] [place] [address] PCP - General Family Medicine 10/06/17 documented as of this encounter
--- OUTSIDE RECORDS SUMMARY | 2024-06-01 01:50 | XMS_ITS | Encounter Summary ---
[place] [address] Care Team Providers Care Shuttler Name Role Phone Samantha Escalante APRN Primary Care Provider Reason for Referral * Diagnostic Test (Routine) - Closed Specialty Diagnoses / Procedures Referred By Wai t Referred To Contact Radiology Diagnoses Coronary artery disease, angina presence unspecified, unspecified vessel or lesion type, unspecified whether [place] or transplanted heart Procedures NM Pharmacologic Stress and Rest Myocardial Perfusion Samantha Escalante APRN [address] [place] [address] [place] [address] Referral ID Status Reason Start Date Expiration Date V isits Requested Visits Authorized [id number] Closed Specialty Service Requested 12/27/2019 06/23/2020 1 1 Reason for Visit * Diagnostic Test (Routine) - Closed Specialty Diagnoses / Procedures Referred By Wai t Referred To Contact Radiology Diagnoses Coronary artery disease, angina presence unspecified, unspecified vessel or lesion type, unspecified whether [place] or transplanted heart Procedures NM Pharmacologic Stress and Rest Myocardial Perfusion Samantha Escalante APRN [address] [place] [address] [place] [address] Referral ID Status Reason Start Date Expiration Date V isits Requested Visits Authorized [id number] Closed Specialty Service Requested 12/27/2019 06/23/2020 1 1 Encounter Details Date Type Department Care Team (Late st Contact Info) Description 04/01/2020 7:37 AM EST Hospital Encounter [place] [address] Ava, Samantha, FINISHED GOODS STOCK CLERK [address] [place], [place] [id number] Coronary artery disease, angina presence unspecified, unspecified vessel or lesion type, unspecified whether [place] or transplanted heart Discharge Disposition: Home Social [...] gemfibrozil (LOPID) 600 mg tablet 10/28/2009 10/13/2020 [place]-3 Fatty Acids-Fish Oil (FISH OIL OMEGA 3-6-9) [...] unspecified vessel or lesion type, unspecified whether [place] or transplanted heart documented in this encounter [...] please contact the number below. Samantha Adjovu FINISHED GOODS STOCK CLERK IMG [place] ORDERABLES documented in this encounter Visit Diagnoses Diagnosis Coronary artery disease, angina presence unspecified, unspecified vessel or lesion type, unspecified whether [place] or transplanted heart documented in this encounter [...] mCi documented in this encounter Care Teams Shuttler Relationship Specialty Start Date End Date Samantha Escalante, FINISHED GOODS STOCK CLERK [address] [place] [address] [address] [place] [address] PCP - General Family Medicine 10/06/17 documented as of this encounter
--- OUTSIDE RECORDS SUMMARY | 2024-06-01 01:50 | XMS_ITS | Encounter Summary ---
Author Organization [facility] [place] [address] Care Team Providers Care Engineering Department Chair Name Role Phone Samantha Escalante APRN [...] on filedocumented in this encounter Care Teams Engineering Department Chair Relationship Specialty Start Date End Date Samantha Escalante APRN [address] [place], [place] [address] PCP - General Family Medicine 10/06/17 documented as of this encounter
--- OUTSIDE RECORDS SUMMARY | 2024-06-01 01:50 | XMS_ITS | Encounter Summary ---
Author Organization [facility] [place] [address] Care Team Providers Care Ice Crusher Name Role Phone Samantha Escalante CHACE Primary Care Provider Encounter Details Date Type Department Care Team (Late st Contact Info) Description 06/11/2022 11:30 AM EST Clinical [place] [address] Social History Tobacco Use Types Packs/Day Years [...] 3rd or 4th+ generation cephalosporin. PAT Clinic SLIDING JOINT MAKER to place Allergy referral for formal penicillin allergy evaluation. Patient open to a phone consult from the allergy clinic. PLAN: Testing: Blood work + T&S Procedure date: 07/05 Alcira documented in this encounter Plan of Treatment Not on file documented as of this encounter Visit Diagnoses Not on filedocumented in this encounter Care Teams Ice Crusher Relationship Specialty Start Date End Date Samantha Escalante APRN [address] [place] [address] [address] [facility] [place] [address] PCP - General Family Medicine 10/06/17 documented as of this encounter
--- OUTSIDE RECORDS SUMMARY | 2024-06-01 01:50 | XMS_ITS | Encounter Summary ---
Author Organization [facility] [place] [address] Care Team Providers Care Nuclear Plant Construction Worker Name Role Phone Samantha Escalanet APRN Primary Care Provider Encounter Details Date Type Department Care Team (Late st Contact Info) Description 11/18/2020 Ancillary Procedure Radiology Library at [facility] [address] Samantha Escalante APRN [address] [place] [address] Social History Tobacco Use Types [...] Study (11/18/2020 12:00 AM EDT) Narrative [facility] - 11/19/2020 1:47 AM EDT This exam is auto-finalizing. It's purpose is for storage only. Samantha sEcalante APRN IMG FILM LIBRARY OR DERABLES [place], [place] documented in this encounter Visit Diagnoses Not on filedocumented in this encounter Care Teams Nuclear Plant Construction Worker Relationship Specialty Start Date End Date Samantha Escalante APRN [address] [place] [address] PCP - General Family Medicine 10/06/17 documented as of this encounter
--- OUTSIDE RECORDS SUMMARY | 2024-06-01 01:50 | XMS_ITS | Encounter Summary ---
[place] [address] Care Team Providers Care Engine Test Cell Technician Name Role Phone Samantha Escalante APRN Primary Care Provider Reason for Visit * Diagnostic Test (Routine) - Closed Specialty Diagnoses / Procedures Referred By Wai t Referred To Contact Radiology Diagnoses Coronary artery disease, angina presence unspecified, unspecified vessel or lesion type, unspecified whether [place] or transplanted heart Procedures NM Pharmacologic Stress and Rest Myocardial Perfusion Samantha Escalante APRN [address] [place] [address] [place] [address] Referral ID Status Reason Start Date Expiration Date V isits Requested Visits Authorized [id number] Closed Specialty Service Requested 12/27/2019 06/23/2020 1 1 Encounter Details Date Type Department Care Team (Late st Contact Info) Description 04/01/2020 7:38 AM EST Hospital Encounter [place] [address] Samantha Escalante APRN [address] [place], [place] [address] Discharge Disposition: Home Social History Tobacco Use [...] gemfibrozil (LOPID) 600 mg tablet 10/28/2009 10/13/2020 Custer-3 Fatty Acids-Fish Oil (FISH OIL OMEGA 3-6-9) [...] unspecified vessel or lesion type, unspecified whether [place] or transplanted heart documented in this encounter [...] signed by: Erick Wallace MD, [facility] ([phone]), at 04/01/2020 11:32 AM Narrative 04/01/2020 11:32 [...] signed by: Erick Wallace MD, [facility]([phone]), at 04/01/2020 11:32 AM Samantha Escalante APRN IMG NM ORDERABLES documented in this encounter Visit Diagnoses Not on filedocumented in this encounter Care Teams Engine Test Cell Technician Relationship Specialty Start Date End Date Samantha Escalante APRN [address] [place] [address] PCP - General Family Medicine 10/06/17 documented as of this encounter
--- OUTSIDE RECORDS SUMMARY | 2024-06-01 01:50 | XMS_ITS | Encounter Summary ---
Author Organization [facility], Located Within [facility] [place] [address] Care Team Providers Care Quantometer Operator Name Role Phone Samantha Escalante APRN Primary Care Provider [phone] Reason for Visit * Reason Comments Follow-up Urgent visit * Consultation (Urgent) - Closed Specialty Diagnoses / Procedures Referred By Contac t Referred To Contact Gynecology Oncology Diagnoses Adnexal mass Silvana Moon MD [facility] OBSTETRICS & [place] [address] Tonai Eli MD [facility] [place] [address] Referral ID Status Reason Start Date Expiration Date V isits Requested Visits Authorized [id number] Closed Consult, Test & Treat 05/24/2022 05/24/2023 1 1 Encounter Details Date Type Department Care Team (Late st Contact Info) Description 06/11/2022 10:00 AM EST Office Visit [place] [address] Tonia Eli MD [facility] [place] [address] Pelvic mass in female (Primary Dx); Carcinoma [...] 10:00 AM EST Division [place] [address] Gynecologic Oncology Clinic New Patient Visit Reason for visit: Complex adnexal cyst, referred by Silvana Moon MD [facility] DR OBSTETRICS & [place] [address] Problem List Patient Active Problem List Diagnosis [...] an endometrioma. She was seen by her crisis nurse Dr. Plascencia ([facility]) who ordered tumor markers: Ca 125 7.2, AFP 6.4, bHCG 6.2. I saw Estephanie for a visit in the general sandblasting supervisor clinic and subsequently referred her here for [...] Social history: She is . Lives in [place], [place]. 83yo woman who is renting a [...] Other reaction(s): Rash, itching all over ??? Uzpjpud-Kzm-Rim Reductase Inhibitors Other reaction(s): MUSCLE ACHES ??? Codeine Phosphate CIS - Nausea/Vomiting ??? Penicillins CIS - Rash [facility] Penicillin Allergy Risk Assessment 06/11/2022: Low risk penicillin allergy. OK to receive full dose of cefazolin, cefuroxime, or any 3rd or 4th+ generation cephalosporin. [facility] Clinic LIGHTHOUSE KEEPER to place Allergy referral for formal penicillin [...] Oncology clinic today. I was present as stripper and opaquer apprentice for the sensitive parts of her examination. DARIANA Leiva documented in this encounter Plan of Treatment Not on file documented as of this encounter Results * Carbohydrate Antigen 19-9 (06/11/2022 12:40 PM EST) CA 19-9 7.4 <=35.0 u/ml [facility] Comment: This result was generated using a Jose E La immunoassay. ??Results obtained from other methods or manufacturers cannot be used interchangeably with this method. Blood 06/11/2022 12:4 0 PM EST 06/11/2022 12:54 PM EST Narrative Resulting Agency Comment Spec In Lab Tonia Eli MD CHEMISTRY ORDERABL ES [facility] [place] [address] * CEA (06/11/2022 12:40 PM EST) Carcinoembryonic Antigen 0.7 <=3.8 ng/mL [facility] Comment: Reference range: ??(20-69 years): Non-smoker: [...] Lab Tonia Eli MD CHEMISTRY ORDERABL ES [facility] [address] [facility] [place] [address] * (ABNORMAL) Comprehensive metabolic panel (non-fasting) (06/11/2022 12:40 PM EST) Glucose 90 65 - 199 mg/dL [facility] Comment:Diabetes: >=200 mg/d L plus symptoms Blood Urea Nitrogen 11 8 - 18 mg/dL [facility] Creatinine 0.75 0.70 - 1.20 mg/dL [facility] Sodium 137 135 - 145 mmol/L [facility] Potassium 4.7 3.5 - 5.0 mmol/L [facility] Comment: Please note: ??Patients with WBC >100,000 may have falsely elevated Potassium levels. ??For accurate Potassium quantification in these patients send serum separator tube (gold top) for subsequent determinations. ??Contact the Clinical Chemistry Laboratory if there are any questions. Chloride 100 98 - 107 mmol/L [facility] Carbon Dioxide 26 22 - 31 mmol/L [facility] Anion Gap 11 5 - 15 mmol/L [facility] Calcium 10.3 8.5 - 10.5 mg/dL [facility] Protein, Total 7.8 6.1 - 8.0 g/dL [facility] Albumin 4.8 3.2 - 5.2 g/dL [facility] Aspartate Aminotransferase 38(H) 0 - 30 unit/L [facility] Alanine Aminotransferase 53(H) 0 - 30 unit/L [facility] Alkaline Phosphatase 54 35 - 105 unit/L [facility] Bilirubin, Total 0.3 0.2 - 1.3 mg/dL [facility] Est Glomerular Filtration Rate 88 >=60 mL/min/1. 73 m?? 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
--- OUTSIDE RECORDS SUMMARY | 2024-06-01 01:50 | XMS_ITS | Encounter Summary ---
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..] six weeks after surgery with a Physician???s Landfill Gas Plant Field Technician at the surgeon???s office. You will have [...] when to stop taking it. Only take cord-znr-bwlzwfy or prescription medicine for pain, discomfort or [...] If you have any questions, please call [facility] Neurology and Neurosurgery at [phone], during business hours of Tuesday through Tuesday from 8:00 a.m. until 4:00 p.m. In case of emergency during non-business hours, please call the same main number and follow the prompts to page the neurosurgeon correctional medicine physician. SMOKING CESSATION INFORMATION: [place] QUITLINE: [place] QUITLINE: www.quitnet.com If you smoke, stop now! Smoking may impede healing. MAKE SURE YOU: Understand these instructions. Will seek medical care if you are feeling poor, or get worse. Will call the surgeon???s office with any questions or concerns at : [phone] Nursing information only: Original document to medical [...] Apodaca MD - 08/05/2021 3:03 PM EDT [facility] [place] [address] Patient Name: Lynda Pedersen : [id number] MR#: [id number] Case Date: 08/05/2021 Case Scheduled Time: 1421 Surgeon: Surgeon(s) and Role: * Jacinto Apodaca MD - Primary * Franki Mills PA - Physician Landfill Gas Plant Field Technician Preoperative diagnosis: SPONDYLOSIS DDD Postoperative diagnosis: SPONDYLOSIS DDD Actual procedure: Right L5-S1 hemilaminectomy, medial facetectomy, lateral recess decompression, [id number], microsurgical discectomy. Use of the high- powered [...] the duration of the operative session. The environmental engineering assistant adequately prepped the operative site and [...] PM EDT Laminec/Facetect/Fo alissa, Lumbar 1 Seg (20750) 08/05/2021 2:41 PM EDT SPONDYLOSIS DDD documented [...] (Due) documented in this encounter Care Teams Knitting Teacher Relationship Specialty Start Date End Date Samantha Escalante APRN [address] [place] [address] PCP - General Family Medicine 10/06/17 documented as of this encounter
--- OUTSIDE RECORDS SUMMARY | 2024-06-01 01:50 | XMS_ITS | Encounter Summary ---
Author Organization [facility] [place] [address] Care Team Providers Care Rehabilitation Services Manager Name Role Phone Samantha Escalante APRN Primary Care Provider [phone] Reason for Visit * Reason Comments Follow-up Encounter Details Date Type Department Care Team (Late st Contact Info) Description 09/21/2021 10:45 AM EDT Office Visit Dermatology at [address] [phone] Willard Parra MD [address] [facility] [place] [address] Dermatofibroma; Seborrheic keratoses; Seborrheic keratosis, inflamed Social [...] Patient knows that this will be an wxl-uc-huhbsw expense CC: Samantha Escalante APRN documented in this encounter Plan of Treatment Not on file documented as of this encounter Visit Diagnoses Diagnosis Dermatofibroma Benign neoplasm of skin, site unspecified Seborrheic keratoses Seborrheic keratosis, inflamed Inflamed seborrheic keratosis documented in this encounter Care Teams Rehabilitation Services Manager Relationship Specialty Start Date End Date Saamntha Escalante APRN [address] [facility] [place] [address] PCP - General Family Medicine 10/06/17 documented as of this encounter
--- OUTSIDE RECORDS SUMMARY | 2024-06-01 01:50 | XMS_ITS | Encounter Summary ---
Author Organization [facility] Address [address] [place] [address] Care Team Providers Care Real Estate Agency Principal Name Role Phone Samantha Escalante NP Primary Care Provider [phone] Encounter Details Date Type Department Care Team (Late st Contact Info) Description 04/15/2022 Lab Requisition [facility] Pathology & Laboratory Medicine - [address] [address] Outr Resulting Lab, Provider Social History Tobacco [...] H. Pylori Negative Negative 04/19/2022 15:08 EST [facility] Feces SPECIMEN FROM RECTUM / Unknown 04/15/2022 4:00 EST 04/15/2022 21:21 EST Narrative [facility] - 04/19/2022 15:08 EST Results were obtained with the [employer] [place] [facility]. us Provider Outr Resulting Lab MICROBIOLOGY - GENER AL ORDERABLES Final Result [facility] [address] [place] [address] documented in this encounter Visit Diagnoses Not on filedocumented in this encounter Care Teams Real Estate Agency Principal Relationship Specialty Start Date End Date Samantha Escalante NP [address] [place] [address] [address] [place] [address] PCP - General 01/07/22 documented as of this encounter
--- OUTSIDE RECORDS SUMMARY | 2024-06-01 01:50 | XMS_ITS | Encounter Summary ---
Author [facility] [place] [address] Care Team Providers Care Roll Scale Man Name Role Phone Samantha Escalante APRN Primary Care Provider Encounter Details Date Type Department Care Team (Late st Contact Info) Description 10/14/2020 [place] [address] Sharonda Durand Social History Tobacco Use Types [...] on filedocumented in this encounter Care Teams Roll Scale Man Relationship Specialty Start Date End Date Samantha Escalante APRN [address] [place] [address] PCP - General Family Medicine 10/06/17 documented as of this encounter
--- OUTSIDE RECORDS SUMMARY | 2024-06-01 01:50 | XMS_ITS | Encounter Summary ---
Author Organization [facility] Address [address] [place] [address] Care Team Providers Care Desk Pens Assembler Name Role Phone ElaineSamantha worthington SENIOR BRANCH MANAGER Primary Care Provider [phone] Encounter Details Date Type Department Care Team (Late st Contact Info) Description 11/25/2023 Lab Requisition [facility] Pathology & [place] [address] Outr Resulting Lab, Provider Social History Tobacco [...] Surface Ag Negative Negative 11/25/19 21:27 EDT [facility] Hep B Surface Ab, Quantitative <3.1 See Note mIU/mL 11/25/2023 21:27 EDT [facility] Comment: Reference Range for Hep B Surface Ab, Quant: Positive: >= 10.0 mIU/mL Negative: ??< 10.0 mIU/mL Patient is presumed to not be immune to infection with Hepatitis B Virus. Hep B Surface Ab, Qualitative Negative See Note 11/25/2023 21:27 EDT [facility] Comment: Reference Range for Hep B Surface Ab, Qual: Unvaccinated: ??Negative Vaccinated: ??Positive Hepatitis B Core Ab, Total Negative Negative 11/25/2023 21:27 EDT [facility] Blood VENOUS BLOOD / Unknown 11/25/2023 8:28 EDT 11/25/2023 19:51 EDT us Provider Outr Resulting Lab CHEMISTRY & BLOOD GA S ORDERABLES Final Result [facility] [address] [place] [address] documented in this encounter Visit Diagnoses Not on filedocumented in this encounter Care Teams Desk Pens Assembler Relationship Specialty Start Date End Date Samantha Escalante NP [address] [place] [address] [address] [place] [address] PCP - General 01/07/22 documented as of this encounter
--- OUTSIDE RECORDS SUMMARY | 2024-06-01 01:50 | XMS_ITS | Encounter Summary ---
Author Organization [facility] Address [facility] [place] [address] Care Team Providers Care Rewrite Editor Name Role Phone Samantha Escalante APRN Primary [...] Expiration Date Visits Re quested Visits Authorized [id number] 1 1 Encounter Details Date Type Department Care Team (Late st Contact Info) Description 08/05/2021 2:41 PM EDT Anesthesia [place] [address] Ming Bull, COLLECTIONS AND ARCHIVES DIRECTOR [place] [address] Tim Wu, COLLECTIONS AND ARCHIVES [place] [address] Anesthesia Record Procedure Summary Procedure Name Responsible Anesthesiologist Anesthesia Start Time Anesthesia Stop Time LAMINECTOMY, FACETECTOMY & FORAMINOTOMY,LUMBAR, ONE LEVEL (WRVU 15.37) (Right: Spine Lumbar) Ming Bull COLLECTIONS AND ARCHIVES DIRECTOR 08/05/21 1441 08/05/21 1614 Events Date Time [...] IV Line - Single Lumen 08/05/21; 1312; jcng-xrp-yliime catheter system; Anatomical Landmarks; 20 gauge; NUBIA [...] Time: 1600 08/05/21 1448 by Ming Bull, COLLECTIONS AND ARCHIVES DIRECTOR 08/05/21 1600 by Ming Bull, COLLECTIONS AND ARCHIVES DIRECTOR Incision 08/05/21; 1503; lowe r, Right, posterior; [...] Room / Location: [facility] OR MAIN OR Anesthesia Start: 1441 Anesthesia [...] Other reaction(s): Rash, itching all over ??? Cdrpcll-Exw-Vqk Reductase Inhibitors Other reaction(s): MUSCLE ACHES ??? [...] mg documented in this encounter Care Teams Rewrite Editor Relationship Specialty Start Date End Date Ava Samantha, EXECUTIVE TALENT ACQUISITION CONSULTANT [address] [place] [address] PCP - General Family Medicine 10/06/17 documented as of this encounter
--- OUTSIDE RECORDS SUMMARY | 2024-06-01 01:51 | XMS_ITS | Encounter Summary ---
Author Organization [facility] Address [address] [place] [address] Care Team Providers Care Virtual Reality Specialist Name Role Phone Jacqui Anaya MD Primary Care Provider [phone] Encounter Details Date Type Department Care Team (Late st Contact Info) Description 04/14/2016 Results Only [facility] [phone] [place], DO [address] [facility] [address] [place] [id number] Social History Tobacco Use Types Packs/Day Years [...] ? GALINA VELIZ ? Accession #: ? [id number] ? : ? 1955 (Age: 60) ??F [...] Document reviewed and electronically signed by: ASHLEY UW MD Report ??Date: 04/19/2016 11:45 By the [...] Myersmartínez 04/16/2016 10:51 AM End of Report [facility] 04/14/2016 20:1 1 EST 04/15/2016 20:11 EST us [place] DO PATHOLOGY ORDERABLES Fi nal Result Performing Organization Address City/State/[facility] Co de Phone Number [facility] [address] [place] [address] documented in this encounter Visit Diagnoses Not on filedocumented in this encounter Care Teams Virtual Reality Specialist Relationship Specialty Start Date End Date Jacqui Anaya MD [address] [place] [address] PCP - General 04/13/11 04/19/16 documented as of this encounter
--- OUTSIDE RECORDS SUMMARY | 2024-06-01 01:51 | XMS_ITS | Encounter Summary ---
Author Organization [facility] Address [address] [place] [address] Care Team Providers Care Oil Well Gun Perforator Operator Name Role Phone Rajat Roca MD Primary Care Provider [phone] Encounter Details Date Type Department Care Team (Late st Contact Info) Description 11/21/2017 Results Only [facility] [phone] Juwan Zapata MD [address] [place] [address] [address] [place] [place], [place] [phone] Social History Tobacco Use Types Packs/Day Years [...] ? GALINA VELIZ ? Accession #: ? [id number] ? : ? 1955 (Age: 61) ??F ? Collect Date: ? 11/21/2017 ? Location: ? [facility] ? Receive Date: ? 11/21/2017 ? Provider: JUWAN ZPAATA MD Copy to: [facility] [employer] ? Final Pathologic Diagnosis: A. STOMACH, ANTRUM, BIOPSY: - Antral mucosa with mild chronic gastritis and focal activity. - Associated reactive gastropathy. - See comment. B. GASTROESOPHAGEAL JUNCTION, BIOPSY: - Columnar mucosa with focal intestinal metaplasia, negative for dysplasia. - Adjoining squamous mucosa with features of reflux esophagitis. Comment: Deeper levels examined. ANTIBODY(CLONE)(BLO CK):RESULT H. pylori (Rabbit Monoclonal (SP48), [place]) (A1): Negative NOTE: ??One or more of [...] performance characteristics have been determined by [facility] and/or by the referring laboratory. ??The [...] are submitted entirely in B1. MIKI Wolfe ([facility]) 11/21/2017 3:[address] [facility] 11/21/2017 15:2 8 EDT 11/21/2017 15:28 EDT us Juwan Zapata MD PATHOLOGY ORDERABLES Fin al Result [facility] [address] [place] [address] documented in this encounter Visit Diagnoses Not on filedocumented in this encounter Care Teams Oil Well Gun Perforator Operator Relationship Specialty Start Date End Date Rajat Roca MD [address] [place] [address] PCP - General 04/20/16 01/06/22 documented as of this encounter
--- OUTSIDE RECORDS SUMMARY | 2024-06-01 01:51 | XMS_ITS | Encounter Summary ---
Author Organization [facility] Address [address] [place] [address] Care Team Providers Care Wide Piece Goods Inspector Name Role Phone Unavailable Primary Care Provider Unavailabl e Encounter Details Date Type Department Care Team (Late st Contact Info) Description 04/09/2011 Results Only [facility] Laboratory Services - [facility] ([facility]) [address] [place], [place] [address] Van [place], [address] [facility] [address] [place] [address] Social History Tobacco Use Types Packs/Day Years [...] ? GALINA VELIZ ? Accession #: ? [id number] ? : ? 1955 (Age: 55) ??F [...] are submitted intact as (B1) (B2). ??(Dr. Vera)/[facility] End of Report [facility] 04/09/2011 04/09/2011 16: 52 EST us Van [place] DO PATHOLOGY ORDERABLES Fi nal Result Performing Organization Address City/State/[facility] Co de Phone Number [facility] [address] [place] [address] documented in this encounter Visit Diagnoses Not on filedocumented in this encounter
--- OUTSIDE RECORDS SUMMARY | 2024-06-01 01:51 | XMS_ITS | Encounter Summary ---
Author Organization [facility] Address [address] [place] [address] Care Team Providers Care Combat Systems Officer Name Role Phone Rajat Roca MD Primary Care Provider [phone] Encounter Details Date Type Department Care Team (Late st Contact Info) Description 09/21/2017 Results Only [facility] [phone] Samantha Negron, DELIA [address] [place] [address] Social History Tobacco Use Types [...] ? GALINA VELIZ ? Accession #: ? [id number] ? : ? 1955 (Age: 61) ??F ?Collect Date: ? 09/21/2017 ? Location: ? [facility] ? Receive Date: ? 09/23/2017 ? Provider: SAMANTHA NEGRON KEEPER HELPER Copy to: ? Final Report SPECIMEN ADEQUACY [...] for cervical or endocervical samples at the [facility]. It is not validated for vaginal samples as the test performance characteristics have not been evaluated. Credit issued. Sample has been sent to [facility] for HPV testing. Comments Document reviewed and electronically signed by: ? System Interface ? Report date: 10/04/2017 By the signature above, the attending physician certifies that he/she has personally conducted a gross and/or microscopic examination of the described specimens and rendered or confirmed the above diagnosis. End of Report [facility] 09/21/2017 09/23/2017 Samantha Negron KEEPER HELPER PATHOLOGY ORDERABLES Final Re sult [facility] [address] [place] [address] documented in this encounter Visit Diagnoses Not on filedocumented in this encounter Care Teams Combat Systems Officer Relationship Specialty Start Date End Date Rajat Roca MD [address] [place] [address] PCP - General 04/20/16 01/06/22 documented as of this encounter
--- OUTSIDE RECORDS SUMMARY | 2024-06-01 01:51 | XMS_ITS | Encounter Summary ---
Author Organization [facility] Address [address] [place] [address] Care Team Providers Care Contingents Supervisor Name Role Phone Rajat Roca MD Primary Care Provider [phone] Encounter Details Date Type Department Care Team (Latest Contact Info) Description 11/21/2017 19:26 EDT - 11/21/2017 23:59 EDT Hospital Encounter [address] [address] Unknown, Provider, MD Discharge Disposition: Home or [...] on filedocumented in this encounter Care Teams Contingents Supervisor Relationship Specialty Start Date End Date Rajat Roca MD [address] [place] [address] [place] [address] PCP - General 04/20/16 01/06/22 documented as of this encounter
--- OUTSIDE RECORDS SUMMARY | 2024-06-01 01:51 | XMS_ITS | Encounter Summary ---
Author Organization [facility] Address [address] [place] [address] Care Team Providers Care Contract Modeler Name Role Phone Rajat Roca MD Primary Care Provider [phone] Samantha Escalante NP Primary Care Provider [phone] Encounter Details Date Type Department Care Team (Late st Contact Info) Description 03/28/2019 Lab Requisition [facility] Pathology & Laboratory Medicine - [facility] [address] [place] [address] Geovany Ibrahim MD [address] [place] [address] [place], [place] [id number] Encounter for other general examination Social History [...] X3, BIOPSY: - Hyperplastic polyps. 03/30/2019 9:36 [facility] at 0936 Diagnosis Comment Immunoperoxidase stains were performed on this case to further characterize the lesion. ANTIBODY(CLONE)(BLOCK ):RESULT H pylori (Rabbit Monoclonal (SP48), Railroad) (B-1): Negative NOTE: One or more of [...] performance characteristics have been determined by [facility] and/or by the referring laboratory. [...] high complexity clinical laboratory testing. 03/30/2019 9:36 [facility] Clinical History History Alford's, history polyps. 03/30/2019 9:36 [facility] Attestation By the signature below, the attending physician certifies that they have personally conducted a gross and/or microscopic examination of the described specimens and rendered or confirmed the above diagnosis. 03/30/2019 9:36 [facility] at 0936 Gross [...] MIPARKER CHILD 03/28/2019 11:48 03/30/2019 9:36 EST [facility] Scanned Images 03/30/2019 9:36 EST [facility] Tissue SPECIMEN FROM RECTUM [...] Ibrahim MD PATHOLOGY ORDERABLES Fin al Result [facility] [address] [place] [address] documented in this encounter Visit Diagnoses Diagnosis Encounter for other general examination documented in this encounter Care Teams Contract Modeler Relationship Specialty Start Date End Date Rajat Roca MD [address] [place] [address] PCP - General 04/20/16 01/06/22 Samantha Escalante NP [address] [place] [address] PCP - General 01/07/22 documented as of this encounter
--- OUTSIDE RECORDS SUMMARY | 2024-06-01 01:51 | XMS_ITS | Encounter Summary ---
Author Organization [facility] Address [address] [place] [address] Care Team Providers Care Activated Sludge Operator Name Role Phone Unavailable Primary Care Provider Unavailabl e Encounter Details Date Type Department Care Team (Late st Contact Info) Description 11/27/2003 Results Only [facility] [address] [place] [address] Jacqui Stearns MD [address] [place] [address] Social History Tobacco Use Types [...] ? GALINA VELIZ ? Accession #: ? [id number] : ? 1955 (Age: 47) ??F ?Collect Date: ? 11/27/2003 Location: ? [facility] ? Receive Date: ? 11/28/2003 Provider: ? JACQUI STEARNS MD Copy to: ? CYTOLOGIC DIAGNOSIS: ? Urine, voided, cytologic evaluation: 1. ?No malignant cells identified. 2. ?Mainly vaginal contamination with vaginosis; scant urothelial cells. Document reviewed and electronically signed by: ? MARCUS JOHNSTON MD [facility] Report Date: ??11/29/2003 15:37 By the [...] ORDERABLES Final Re sult [facility] [address] [place] [address] documented in this encounter Visit Diagnoses Not on filedocumented in this encounter
--- OUTSIDE RECORDS SUMMARY | 2024-06-01 01:51 | XMS_ITS | Encounter Summary ---
Author Organization [facility] Address [address] [place] [address] Care Team Providers Care Director Sales And Trade Marketing Name Role Phone Jacqui Anaya MD Primary Care Provider [phone] Encounter Details Date Type Department Care Team (Latest Contact Info) Description 04/14/2016 7:09 EST - 04/14/2016 23:59 EST Hospital Encounter [address] [address] Unknown, Provider, MD Discharge Disposition: Home or [...] Code Departure Means Destination Home or Self Senior Living documented in this encounter Plan of Treatment Not on file documented as of this encounter Visit Diagnoses Not on filedocumented in this encounter Care Teams Director Sales And Trade Marketing Relationship Specialty Start Date End Date Jacqui Anaya MD [address] [place] [address] PCP - General 04/13/11 04/19/16 documented as of this encounter
[2024-06-01 12:28] LABS: HGB 12.6 g/dL (11.2-15.7)
[2024-06-01 13:02] LABS: Hemoglobin A1C 6.5 % (<5.7)
[2024-06-01 13:07] LABS: TSH (W/Ref FT4) 4.45 uIU/mL (0.36-3.74)
[2024-06-01 13:08] LABS: Iron 66 ug/dL (50-170)
[2024-06-01 13:11] LABS: Ferritin 15 ng/mL (8-252)
[2024-06-01 13:28] LABS: FREE T4 0.81 ng/dL (0.76-1.46)
== END 2024-06-01 01:47 | disposition home or self-care (01) ==
LOC: LOS 01:47
PROVIDERS: Surgery; PCP Nurse Practitioner Family; Visit Provider Nurse Practitioner Family
DX: R79.89 Other specified abnormal findings of blood chemistry (principal); R73.03 Prediabetes; D50.9 Iron deficiency anemia, unspecified
CPT/HCPCS: 36415; 82728; 83036; 83540; 84439; 84443; 85018

== ENCOUNTER → 2024-08-21 10:02 | Outpatient (BNVA) | payer MEDICARE, SELFPAY | PROVIDERS: PCP Nurse Practitioner Family; Referring Provider Nurse Practitioner Family; Visit Provider Physician Assistant Surgical | DX: J45.909 Unspecified asthma, uncomplicated (principal); Z87.891 Personal history of nicotine dependence; G47.33 Obstructive sleep apnea (adult) (pediatric); K22.70 Barrett's esophagus without dysplasia | CPT/HCPCS: 94640; 99214; G0296; J7620 ==

== ENCOUNTER 2024-08-28 03:55 | Outpatient (CLI) | payer MEDICARE, SELFPAY ==
[2024-08-28 12:23] LABS: Abs Immature Grans 0.33 10^3/uL (0.0-0.06); Absolute Eosinophil Count 0.08 10^3/uL (0.0-0.7); Basophils % 0.6 %; Eosinophils % 0.6 %; HCT 42.7 % (36.0-46.0); HGB 13.9 g/dL (11.2-15.7); Immature Grans % 2.3 %; Lymphocytes % 20.6 %; MCH 27.1 pg (27.0-33.0); MCHC 32.6 % (32.0-36.0); MCV 83 fL (80-95); MPV 9.6 fL (8.0-11.0); Monocytes % 5.7 %; Neutrophils % 70.2 %; Platelet Count 337 10^3/uL (130-400); RBC 5.13 10^6/uL (3.93-5.22); RDW 15.9 % (11.7-14.6); RDW-SD 47.8 fL; WBC 14.06 10^3/uL (4.4-10.8)
[2024-08-28 12:27] LABS: Absolute Basophil Count 0.08 10^3/uL (0.0-0.2); Absolute Neutrophil Count 9.87 10^3/uL (1.2-6.7)
[2024-08-28 13:14] LABS: Iron 68 ug/dL (50-170); Total Iron Binding Capacity 511 ug/dL (250-450)
[2024-08-28 13:23] LABS: CO2 26.1 mmol/L (21.0-32.0); TSH (W/Ref FT4) 3.35 uIU/mL (0.36-3.74)
[2024-08-28 13:32] LABS: ALT 42 U/L (14-59); AST 22 U/L (15-37); Albumin 4.1 g/dL (3.4-5.0); Alkaline Phosphatase 87 U/L (46-116); Anion Gap 11.9 mmol/L (3-11); BUN 22 mg/dL (7-18); Bilirubin, Total 0.4 mg/dL (0.2-1.0); Calcium 9.6 mg/dL (8.5-10.1); Chloride 100 mmol/L (98-107); Estimated GFR 61.75 (mL/min/1.73m2); Glucose 169 mg/dL (74-106); Lipase 54 U/L (<78); Potassium 4.3 mmol/L (3.5-5.1); Sodium 138 mmol/L (136-145); Total Protein 7.6 g/dL (6.4-8.2)
[2024-08-28 14:12] LABS: Ferritin 23 ng/mL (8-252); Vitamin B12 457 pg/mL (193-986)
[2024-08-28 14:16] LABS: Folate > 20.0 ng/mL (8.6-20.0)
[2024-08-29 09:50] LABS: Transferrin 397 mg/dL (201-352)
== END 2024-08-28 03:56 | disposition home or self-care (01) ==
LOC: LOS 03:55
PROVIDERS: PCP Nurse Practitioner Family; Visit Provider Nurse Practitioner Family
DX: E11.9 Type 2 diabetes mellitus without complications (principal); G47.33 Obstructive sleep apnea (adult) (pediatric); R10.10 Upper abdominal pain, unspecified; D50.9 Iron deficiency anemia, unspecified
CPT/HCPCS: 36415; 80053; 83690; 82607; 82728; 82746; 83540; 83550; 84443; 84466; 85025

== ENCOUNTER → 2024-09-04 10:05 | Outpatient (BNVA) | payer MEDICARE, SELFPAY | PROVIDERS: PCP Nurse Practitioner Family; Referring Provider Nurse Practitioner Family; Visit Provider Physician Assistant Surgical | DX: J45.909 Unspecified asthma, uncomplicated (principal); G47.33 Obstructive sleep apnea (adult) (pediatric); K22.70 Barrett's esophagus without dysplasia; Z87.891 Personal history of nicotine dependence | CPT/HCPCS: 99214 ==

== ENCOUNTER 2024-09-17 02:49 | Outpatient (CLI) | payer MEDICARE, SELFPAY ==
--- NOTE | 2024-09-17 06:00 | DI.US_ITS ---
Exam(s) US ABDOMEN EXAM: US ABDOMEN CLINICAL HISTORY: upper abdominal pain,R10.10 TECHNIQUE: Ultrasound abdomen performed using standard protocol. COMPARISON: CT CT CHEST/ABD W from 12/24/2019 US US ABDOMEN LIMITED from 11/18/[address] PELVIC WO from 10/27/2023 FINDINGS: ABDOMINAL AORTA AND IVC: Visualized portions normal caliber. PANCREAS: Normal where visualized. LIVER: There is diffuse increased echogenicity of the liver consistent with fatty infiltration. Hepa topetal flow in the Portal Vein. No evidence of a hepatic mass. The liver measures 18.4cm long. GALLBLADDER:No evidence of cholelithiasis. No evidence of wall thickening. No pericholecystic fluid i dentified. BILIARY SYSTEM: Common bile duct measures < 7 mm. No intrahepatic biliary ductal dilation. VENTURA'S SIGN: Negative. KIDNEYS: Kidneys are symmetric in size. No evidence of renal calculi. No evidence of hydronephrosis. No renal mass or cyst identified. SPLEEN: Not enlarged. ASCITES: None seen. IMPRESSION: Hepatic steatosis and mild hepatomegaly. DATA REPOSITORY:
== END 2024-09-17 03:09 ==
LOC: DI 02:49
PROVIDERS: PCP Nurse Practitioner Family; Visit Provider Nurse Practitioner Family
DX: R16.0 Hepatomegaly, not elsewhere classified (principal); K76.0 Fatty (change of) liver, not elsewhere classified
CPT/HCPCS: 76700

== ENCOUNTER 2024-09-21 00:22 | Outpatient (CLI) | payer MEDICARE, SELFPAY ==
--- NOTE | 2024-09-21 07:15 | DI.CTLCSR_ITS ---
Exam(s) CT CHEST LUNG CANCER SCREEN EXAM: CT CHEST LUNG CANCER SCREEN CLINICAL HISTORY: Screening for lung cancer,former cigarette smoker, z87.891. TECHNIQUE: Imaging Protocol: Low Dose Technique CONTRAST MATERIAL: None COMPARISON: CT CT CHEST LUNG CANCER SCREEN from 08/23/2023 FINDINGS: CHEST: LUNGS: Again noted are multiple bilateral small calcified granulomas.. Also again noted is a ground- glass-type nodular infiltrate in the right upper lobe which measures 7 by 5 mm, unchanged. There is also an unchanged pleural based small nodular density in the right lower lobe. No new confluent infi ltrates and there are no pleural effusions. MEDIASTINUM: There is no obvious hilar nor mediastinal adenopathy. CARDIAC: Heart size is normal. There is no pericardial effusion.Caliber of the thoracic aorta is wit hin normal limits. OTHER: No adrenal masses. OSSEOUS: No significant osseous lesions.. IMPRESSION: 1. Stable small right lung nodules and bilateral calcified granulomas, unchanged from CT scan of 2023. 2. No new infiltrates nor pleural effusions nor intrathoracic adenopathy. 3. Lung RADS Cat 2 - Benign Appearance / Behavior: Nodules with a very low likelihood of becoming a c linically active cancer due to size or lack of growth Lung-RADS 1.0 CATEGORIES: Category 0 - Prior chest CT exam(s) being located for comparison. Category 1 - Annual screening in 12 months. No nodules or definitely benign nodules. Category 2 - Annual screening in 12 months. Benign appearance. Nodules with low likelihood of becomin g active cancer. Category 3 - 6-month follow-up. Probably benign. Short-term follow-up suggested. Nodules with low lik elihood of becoming active cancer. Category 4A - 3-month follow-up and CT/PET if >8 mm in size. Suspicious finding. Findings which requi re additional testing. Category 4B - Findings which require additional testing and tissue sampling. Category 4X - Category 3 or 4 nodules with additional features or imaging findings that increases the suspicion of malignancy. Modifier S- Potentially clinically significant findings (non lung cancer) RADIATION DOSE DELIVERED: 72.31mGy.cm Total DLP DATA REPOSITORY: All CT scans at this facility are submitted to the National Radiology Data Registry (NRDR) Dose Index Registry (DIR) with the [employer] (ACR). RADIATION OPTIMIZATION: All CT scans at this facility use at least one of these dose optimization te chniques: automated exposure control; mA and/or kV adjustment per patient size (includes targeted exa ms where dose is matched to clinical indication); or iterative reconstruction.
== END 2024-09-21 00:42 ==
LOC: DI 00:23
PROVIDERS: PCP Nurse Practitioner Family; Visit Provider Physician Assistant Surgical
DX: Z87.891 Personal history of nicotine dependence (principal); Z12.2 Encounter for screening for malignant neoplasm of respiratory organs; R91.8 Other nonspecific abnormal finding of lung field
CPT/HCPCS: 71271

== ENCOUNTER 2024-10-10 09:30 | Outpatient (CLI) | payer MEDICARE, SELFPAY ==
--- NOTE | 2024-10-10 09:30 | RT.EKG_ITS ---
APPROVED REPORT Exam: Resting ECG Reason for Exam: chest discomfort Patient Location: O HR:76 bpm ECG Measurements Heart Rate 76 AXIS NH 135 P 31 QRSd 83 QRS 36 QT 426 T 55 QTc 480 Conclusion Sinus rhythm...normal P axis, V-rate 50- 99 Normal Electrocardiogram
== END 2024-10-10 09:31 | disposition home or self-care (01) ==
LOC: DI.CM 09:30
PROVIDERS: PCP Nurse Practitioner Family; Visit Provider Physician Assistant
DX: R07.89 Other chest pain (principal); R07.9 Chest pain, unspecified
CPT/HCPCS: 93010

== ENCOUNTER 2025-01-08 09:56 | Outpatient (CLI) | payer MEDICARE, SELFPAY ==
[2025-01-08 13:01] LABS: Abs Immature Grans 0.01 10^3/uL (0.0-0.06); HCT 40.7 % (36.0-46.0); HGB 13.0 g/dL (11.2-15.7); Immature Grans % 0.2 %; MCH 26.7 pg (27.0-33.0); MCHC 31.9 % (32.0-36.0); MCV 84 fL (80-95); MPV 10.0 fL (8.0-11.0); Platelet Count 228 10^3/uL (130-400); RBC 4.87 10^6/uL (3.93-5.22); RDW 15.4 % (11.7-14.6); RDW-SD 46.8 fL; WBC 5.50 10^3/uL (4.4-10.8)
[2025-01-08 13:23] LABS: Hemoglobin A1C 5.7 % (<5.7)
[2025-01-08 13:26] LABS: Anion Gap 7.3 mmol/L (3-11); BUN 12 mg/dL (7-18); CO2 28.7 mmol/L (21.0-32.0); Calcium 9.2 mg/dL (8.5-10.1); Chloride 103 mmol/L (98-107); Estimated GFR 69.64 (mL/min/1.73m2); Glucose 92 mg/dL (74-106); Potassium 4.3 mmol/L (3.5-5.1); Sodium 139 mmol/L (136-145)
== END 2025-01-08 09:57 | disposition home or self-care (01) ==
LOC: LOS 09:56
PROVIDERS: PCP Nurse Practitioner Family; Visit Provider Nurse Practitioner Family
DX: G47.33 Obstructive sleep apnea (adult) (pediatric) (principal); R73.03 Prediabetes
CPT/HCPCS: 36415; 80048; 83036; 85025

== ENCOUNTER 2025-01-14 07:19 | Outpatient (CLI) | payer MEDICARE, SELFPAY ==
[2025-01-14 14:38] LABS: ALT 57 U/L (14-59); AST 35 U/L (15-37); Albumin 4.2 g/dL (3.4-5.0); Alkaline Phosphatase 54 U/L (46-116); Bilirubin, Direct 0.1 mg/dL (0.0-0.2); Bilirubin, Total 0.5 mg/dL (0.2-1.0); Total Protein 7.7 g/dL (6.4-8.2)
== END 2025-01-14 07:20 | disposition home or self-care (01) ==
LOC: LOS 01-15 07:19
PROVIDERS: PCP Nurse Practitioner Family; Visit Provider Nurse Practitioner Family
DX: R73.03 Prediabetes (principal); E66.9 Obesity, unspecified
CPT/HCPCS: 36415; 80076

== ENCOUNTER → 2025-03-04 07:57 | Outpatient (BNVA) | payer MEDICARE, SELFPAY | PROVIDERS: PCP Nurse Practitioner Family; Referring Provider Nurse Practitioner Family; Visit Provider Physician Assistant Surgical | DX: G47.33 Obstructive sleep apnea (adult) (pediatric) (principal); K22.70 Barrett's esophagus without dysplasia; J45.909 Unspecified asthma, uncomplicated; Z87.891 Personal history of nicotine dependence | CPT/HCPCS: 99214 ==

== ENCOUNTER → 2025-03-25 01:28 | Outpatient (CLI) | payer MEDICARE, SELFPAY ==
--- NOTE | 2025-03-25 06:45 | DI.MAMMO_ITS ---
Exam(s) MAMMO SCREENING EXAM: MAMMO SCREENING CLINICAL HISTORY: screening,z12.39 TECHNIQUE: Mammograms were interpreted according to the usual protocol including computer analysis with CAD system, tomosynthesis and C-view imaging. COMPARISON: 2017 through 2023 FINDINGS: The breasts are composed of scattered fibroglandular densities, Breast Density category B. No suspicious masses or suspicious microcalcifications are seen. Bilateral benign calcifications are again noted. No skin thickening or abnormal axillary lymph nodes are seen. There has been no significant change from prior exams. IMPRESSION: BI-RADS Category 2 - Benign Findings Yearly screening mammography is recommended. Breast Density - Category B - There are scattered areas of fibroglandular density. Breast density Category C or D implies that the patient has dense breast tissue. Dense breast tissue can make it harder to find cancer on a mammogram. Dense breast tissue is also associated with an increased risk of breast cancer. This information about the result of the mammogram report was provided to the patient to raise their awareness. Use this report when you speak with the patient about their risks for breast cancer, which includes their family history. At that time, you may recommend additional screening tests (Ultrasound or MRI) as these tests may add significant information. A negative radiographic report should not delay biopsy if a dominant or clinically suspicious mass is present. Up to ten percent of cancers are not identified on mammography. A negative report may reinforce clinical impression. Adenosis and dense breasts may obscure an underlying neoplasm. False positive reports average 6 to 10%. Patient will receive a letter notifying them of these results.
== END ==
LOC: DI 01:28
PROVIDERS: PCP Nurse Practitioner Family; Visit Provider Nurse Practitioner Family
DX: Z12.31 Encounter for screening mammogram for malignant neoplasm of breast (principal); R92.323 Mammographic fibroglandular density, bilateral breasts
CPT/HCPCS: 77063; 77067